=== PATIENT | male | born 1960 | race Caucasian/White ===

== ENCOUNTER 2017-12-12 23:23 | Inpatient (IN) | payer OTHER ==
[2017-12-13] MEDS ORDERED: Piperacillin/Tazobac ADVAN(*) 3.375 GM in NS 0.9% 100 ML* 100 ML IVPB ONE (00:13)
[2017-12-13] MEDS ORDERED: Vancomycin(*) 1,500 MG in NS 0.9% 250 ML* 250 ML IVPB ONE (00:13)
[2017-12-13 00:55] LABS: INR 1.05 (0.77-1.02)
[2017-12-13 00:58] LABS: ABS Basophils 0.1 10^3/ul (0-0.2); ABS Eosinophils 0.3 10^3/ul (0-0.6); ABS Lymphocytes 1.9 10^3/ul (1.0-4.8); ABS Monocytes 0.9 10^3/ul (0-0.8); ABS Neutrophils 10.9 10^3/ul (1.5-7.7); Hematocrit 35 % (42-52); Hemoglobin 11.7 g/dl (14.0-18.0); Mean Corpuscular HGB Conc 33 g/dl (31-36); Mean Corpuscular Hemoglobin 24 pg (27-31); Mean Corpuscular Volume 72 fL (80-94); Platelet Count 417 10^3/ul (150-450); Red Blood Count 4.91 10^6/ul (4.0-5.4); Red Cell Distribution Width 18 % (10.5-15)
[2017-12-13 01:01] LABS: EGFR Non-African American 68.8 (>60)
[2017-12-13] MEDS ORDERED: Insulin REGULAR(*) 1 UNITS UNIT IV PUSH ONE (01:06)
[2017-12-13] MEDS ORDERED: NS 0.9% 1000 ML* 1,000 ML IV ONE (01:06)
[2017-12-13 01:23] LABS: ABS Nucleated RBC 0 10^3/ul; Eosinophil % 2.1 % (0-6); Lymphocyte % 13.2 % (25-47); Nucleated Red Blood Cells % 0.1
[2017-12-13] MEDS ORDERED: Senna TAB PO PRN (02:06)
[2017-12-13] MEDS ORDERED: Ondansetron INJ* 2 MG/ML VIAL IV PRN (02:06)
[2017-12-13] MEDS ORDERED: Al Hydrox/Mg Hydrox/Simet LIQ* 30 ML UDC PO PRN (02:06)
[2017-12-13] MEDS ORDERED: Acetaminophen TAB* 325 MG PO PRN (02:06)
[2017-12-13] MEDS ORDERED: Docusate CAP* 100 MG PO PRN (02:06)
[2017-12-13] MEDS ORDERED: Insulin LISPRO* 1 UNITS UNIT SUBCUT ONE (02:09)
[2017-12-13] MEDS ORDERED: Dextrose 50% Syringe 50 ML* 25 GM/50 ML SYRINGE IV PUSH PRN ×3 (02:09→02:15)
--- NOTE | 2017-12-13 02:10 | ED ---
Ruth Guerin Nilda, scribed for Cami Barahona MD on 12/13/17 at 0015 . Lower Extremity - HPI Summary HPI Summary: This patient is a 57 year old M presenting to [facility] with a chief complaint of constant draining, black wound on left foot that began one week ago. He reports he otherwise feels fine. He notes recent HbA1C was found to be 9. Pt states he will be seeing PCP (Dr. Greene) on 12/17/17. The patient rates the pain 0/10 in severity. Symptoms aggravated and alleviated by nothing. PMHx includes DMII, diabetic neuropathy, and right foot amputation. - History of Current Complaint Chief Complaint: EDExtremityLower Stated Complaint: LEFT FOOT INFECTION Time Seen by Provider: 12/12/17 23:39 Hx Obtained From: Patient Mechanism Of Injury: Other - Hx DM and neuropathy. Onset/Duration: Still Present Pain Intensity: 0 Pain Scale Used: 0-10 Numeric Timing: Constant Location: Is Discrete @ - bottom of left foot Associated Signs And Symptoms: Positive: Other - black wound, draining Aggravating Factor(s): Nothing Alleviating Factor(s): Nothing - Allergies/Home Medications Allergies/Adverse Reactions: Allergies Allergy/AdvReac Type Severity Reaction Status Date / Time cefepime Allergy See Comment Verified 12/12/17 23:31 Home Medications: Home Medications Pravastatin (NF) [Pravachol (NF)] 20 mg PO DAILY 12/12/17 [History Confirmed 12/26] PMH/Surg Hx/FS Hx/Imm Hx Endocrine/Hematology History: Reports: Hx Diabetes - DM II Denies: Hx Anticoagulant Therapy, Hx Blood Disorders, Hx Blood Transfusions, Hx Bone Marrow Disease, Hx Systemic Lupus Erythematosus, Hx Sickle Cell Disease , Hx Thyroid Disease, Hx Anemia, Hx Unexplained Bleeding, Other Endocrine/ Hematological Disorders Cardiovascular History: Reports: Hx Hypertension, Hx Peripheral Vascular Disease Denies: Hx Congestive Heart Failure, Hx Pacemaker/ICD History: Reports: Hx Acute Renal Failure, Hx Chronic Renal Failure Denies: Hx Renal Disease Comment Only: Other Problems/Disorders - HAD 7 Tx [facility] Musculoskeletal History: Reports: Other Musculoskeletal History - osteomyelitis Denies: Hx Osteoporosis Sensory History: Reports: Hx Contacts or Glasses Denies: Hx Hearing Aid Opthamlomology History: Reports: Hx Contacts or Glasses Neurological History: Reports: Other Neuro Impairments/Disorders - PTSS, anxiety , aspergers Psychiatric History: Reports: Hx Anxiety, Hx Depression, Hx Post Traumatic Stress Disorder, Hx Community Mental Health Tx - Psychiatrist [place] on [address] , Other Psychiatric Issues/Disorders - donavon Denies: Hx Attention Deficit Hyperactivity Disorder, Hx Eating Disorder, Hx Panic Disorder, Hx Inpatient Treatment, Hx Schizophrenia, Hx Bipolar Disorder, Hx Suicide Attempt, Hx of Violent Episodes Against Others, Hx Substance Abuse - Surgical History Surgery Procedure, Year, and Place: 2014 FOOT AMPUTATION X2 ([facility]). CATHETER IN NECK FOR DIALYSIS Hx Anesthesia Reactions: No Infectious Disease History: Yes Infectious Disease History: Denies: Traveled Outside the [place] in Last 30 Days - Social History Alcohol Use: Rare Substance Use Type: Reports: None Smoking Status (MU): Light Every Day Tobacco Smoker Type: Cigarettes Amount Used/How Often: 1PPD OR LESS 20 YEARS Have You Smoked in the Last Year: Yes Review of Systems Negative: Shortness Of Breath Positive: Other - black wound with drainage on left foot All Other Systems Reviewed And Are Negative: Yes Physical Exam - Summary Physical Exam Summary: VITAL SIGNS: Reviewed. GENERAL: Patient is a morbidly obese male who is lying comfortable in the stretcher. Patient is not in any acute respiratory distress. HEAD AND FACE: No signs of trauma. No ecchymosis, hematomas or skull depressions. No sinus tenderness. EYES: PERRLA, EOMI x 2, No injected conjunctiva, no nystagmus. EARS: Hearing grossly intact. Ear canals and tympanic membranes are within normal limits. MOUTH: Oropharynx within normal limits. NECK: Supple, trachea is midline, no adenopathy, no JVD, no carotid bruit, no c- spine tenderness, neck with full ROM. CHEST: Symmetric, no tenderness at palpation LUNGS: Clear to auscultation bilaterally. No wheezing or crackles. CVS: Regular rate and rhythm, S1 and S2 present, no murmurs or gallops appreciated. ABDOMEN: Soft, non-tender. No signs of distention. No rebound no guarding, and no masses palpated. Bowel sounds are normal. EXTREMITIES: 1.5 in. x in. gangrenous ulcer over sole of medial aspect of the left foot with surrounding erythema. Sensory loss in left foot secondary to Hx of neuropathy. NEURO: Alert and oriented x 3. No acute neurological deficits. Speech is normal and follows commands. SKIN: Dry and warm Triage Information Reviewed: Yes Vital Signs On Initial Exam: Initial Vitals Temp Pulse Resp BP Pulse Ox 97.6 F 90 18 188/85 96 12/12/17 23:26 12/12/17 23:26 12/12/17 23:26 12/12/17 23:26 12/12/17 23:26 Vital Signs Reviewed: Yes Diagnostics - Vital Signs Vital Signs Temp Pulse Resp BP Pulse Ox 12/12/17 23:26 97.6 F 90 18 188/85 96 - Laboratory Result Diagrams: 12/13/17 00:20 12/13/17 00:20 Lab Statement: Any lab studies that have been ordered have been reviewed, and results considered in the medical decision making process. - Radiology Left Foot XR Radiology Interpretation Completed By: ED Physician - Left foot XR reveals bone irregularity over the radial aspect of the mid left foot/possible osteomyelitis. Lower Extremity Course/Dx - Course Assessment/Plan: Pt is a 57 y/o with Hx DM uncontrolled, and neuropathy. Pt came here with ulcer to left foot. Exam consistent with gangrenous ulcer over sole of left foot medially with surrounding erythema. Left foot XR reveals possible osteomyelitis. Pt will be admitted for IV abx. - Diagnoses Provider Diagnoses: Gangrene of left foot, Cellulitis of left foot - Physician Notifications Discussed Care Of Patient With: Cristina Kraft - hospitalist Time Discussed With Above Provider: 01:09 Instructed by Provider To: Admit As Inpatient Discharge - Sign-Out/Discharge Documenting (check all that apply): Discharge - admit - Discharge Plan Condition: Stable Disposition: ADMITTED TO [facility] Referrals: Daniel Greene MD [Primary Care Provider] - The documentation as recorded by the Ruth akhtar Nilda accurately reflects the service I personally performed and the decisions made by me, Cami Barahona MD.
[2017-12-13] MEDS ORDERED: Vancomycin(*) 0 MG in NS 0.9% 250 ML* 250 ML IVPB SCH (03:00)
[2017-12-13] MEDS ORDERED: metroNIDAZOLE IV 500 MG/100ML* 500 MG/100 ML BAG IVPB SCH (03:00)
[2017-12-13] MEDS ORDERED: Vancomycin per Pharmacy* NOTE FOLLOW UP PRN (04:42)
[2017-12-13] MEDS: metroNIDAZOLE IV 500 MG/100ML* 500 MG/100 ML BAG IVPB SCH ×2 (05:07→17:29)
[2017-12-13] MEDS: Heparin VIAL(*) 5000 UNITS/ML VIAL (FIVE THOUSAND) SUBCUT SCH ×3 (06:29→20:37)
--- NOTE | 2017-12-13 07:40 | RAD ---
HISTORY: Left foot infection COMPARISONS: None VIEWS: 3, Frontal, lateral, and oblique views of the left foot FINDINGS: BONE DENSITY: Normal. BONES: There is no displaced fracture. There is no appreciable erosion or periosteal reaction. JOINTS: There is advanced osteoarthritis of the midfoot suggestive of a neuropathic joint. ALIGNMENT: There is no dislocation. SOFT TISSUES: There is soft tissue defect along the medial plantar surface of the foot. There is peripheral arterial calcification. OTHER FINDINGS: None. IMPRESSION: 1. ADVANCED OSTEOARTHRITIS OF THE MIDFOOT SUGGESTIVE OF A NEUROPATHIC JOINT. 2. SOFT TISSUE DEFECT CONSISTENT ALONG THE MEDIAL PLANTAR SURFACE OF THE FOOT. THERE IS NO APPRECIABLE ASSOCIATED EROSION OR PERIOSTEAL REACTION. PLAIN FILM FINDINGS OF OSTEOMYELITIS ARE RELATIVELY LATE FINDINGS. IF THERE IS PERSISTENT CLINICAL CONCERN FOR OSTEOMYELITIS, RECOMMEND CORRELATION WITH FOLLOWUP IMAGING, THREE-PHASE BONE SCANNING, WHITE BLOOD CELL SCAN, AND/OR MRI OF THE AFFECTED REGION. 3. PERIPHERAL ARTERIAL DISEASE
--- NOTE | 2017-12-13 07:59 | HP ---
CC: Daniel Greene MD * HISTORY AND PHYSICAL: DATE OF ADMISSION: 12/13/17. TIME OF EVALUATION: 0200. PRIMARY CARE PHYSICIAN: Daniel Greene MD. CHIEF COMPLAINT: Left foot ulcer. HISTORY OF PRESENT ILLNESS: This is a 57-year-old male with a past medical history of poorly controlled diabetes on insulin and a history of right foot osteo, status post amputation, who presents to the emergency room with a week to 10 days of progressively worse left foot ulcer. He states he has neuropathy in his feet. His blood sugars are not well controlled. They range in the 200s. He did have his hemoglobin A1c checked last week and it was 9.5. He was going to follow up to discuss further insulin management. He was hoping this wound on the bottom of his left foot would resolve on its own. It got progressively worse and his friend who is his healthcare proxy forced him to come to the emergency room this morning. He states he has been feeling otherwise okay. No fevers. No chills. No night sweats. No nausea or vomiting. He has chronic diarrhea related to anxiety. No chest pain or shortness of breath. In the emergency room, the patient had labs and imaging. He was given vancomycin, Zosyn, a liter of fluid, and referred to the hospitalist service for further evaluation. PAST MEDICAL HISTORY: 1. History of right foot osteomyelitis, status post toe amputation, and progressed partial foot amputation back in 2013. 2. History of interstitial nephritis with endstage renal disease requiring dialysis secondary to cefepime. 3. History of Asperger disorder. 4. Diabetes, poorly controlled on insulin. 5. History of neuropathy. 6. Hyperlipidemia. MEDICATIONS: 1. Pravastatin 20 mg p.o. daily. 2. Lantus 30 units at bedtime. 3. Amlodipine 5 mg daily. 4. Lispro. 5. Humalog 10 units a.c. 6. Prozac 40 mg daily. ALLERGIES: CEFEPIME. FAMILY HISTORY: The patient was adopted. SOCIAL HISTORY: The patient lives alone. He says his best friend Millie is his healthcare proxy. He states he smokes on and off for the past 20 plus years about a half a pack per day. Rare alcohol use. No illicit drug use. He is on disability. CODE STATUS: Full code. REVIEW OF SYSTEMS: A 14-point review of systems as mentioned in the HPI, otherwise negative. PHYSICAL EXAMINATION GENERAL: No acute distress. Resting comfortably with his friend at the bedside. VITAL SIGNS: Temp 97.6, pulse rate 90, respiratory rate 18, oxygen saturation 96 % on room air, blood pressure 161/89. HEENT: Head normocephalic. Pupils equal and reactive, anicteric. Oropharynx: Mucous membranes moist. NECK: Supple. No lymphadenopathy. RESPIRATORY: Diminished breath sounds. No wheezes, rhonchi, or rales. CARDIAC: Regular rate and rhythm. Soft systolic murmur heard throughout. ABDOMEN: Morbidly obese, soft, nontender, nondistended. EXTREMITIES: The patient's right lower extremity with a partial foot amputation. His left lower extremity has a 3-cm gangrenous ulcer on the dorsum of his left foot with surrounding erythema. NEUROLOGIC: Alert and oriented x3. No gross focal neurologic deficits. LABORATORY DATA: White count 14.0, hemoglobin 11.7, hematocrit 35, platelets 417. INR is 1.05. Sodium 133, potassium 3.9, chloride 100, bicarbonate 27, BUN 16, creatinine 1.11, glucose 322. CRP is 55. ASSESSMENT: This is a 57-year-old male with a past medical history of poorly controlled diabetes and neuropathy, who presents to the emergency room with progressively worsening left foot ulcer. 1. Left foot ulcer. Assessment: This has been progressive over the past 7 to 10 days with significant necrotic, gangrenous appearance on the dorsum of his left foot, suspicious for osteomyelitis. Plan: We will obtain a wound culture. We will continue him on vanco. We will switch him to Cipro and Flagyl. We will consult ID and also the patient is requesting Dr. Walker who did his amputation in the past. We will consult him as well. 2. Diabetes. Assessment: Poorly controlled. We will give him 6 units of insulin now, continue on his Lantus at [address] him on a Lispro sliding scale. CHRONIC MEDICAL PROBLEMS: 1. Hypertension: Continue his amlodipine 5 mg daily. 2. Hyperlipidemia: We do not have pravastatin in our formulary, we will hold this. 3. Depression. We will continue his Prozac at 40. 4. FEN. We will place the patient on a diabetic diet. 5. DVT prophylaxis. The patient scores moderate risk, we will place him on heparin subcu t.i.d. 6. Code status: Full code. PATIENT TIME: Greater than 50 minutes spent doing the history and physical, more than half time spent in direct patient contact. [id number]/[facility] #: [id number] ED
[2017-12-13] MEDS: FLUoxetine CAP* 20 MG PO SCH (08:15)
[2017-12-13] MEDS: amLODIPine TAB* 5 MG PO SCH (08:16)
[2017-12-13] MEDS ORDERED: Cefepime 2 GM in Dextrose(*) 2 GM/50 ML BAG IV SCH (09:00)
[2017-12-13] MEDS ORDERED: Ciprofloxacin 400MG IVPREMIX(* 400 MG/200 ML BAG IVPB SCH (09:00)
[2017-12-13] MEDS: Insulin LISPRO* 1 UNITS UNIT SUBCUT SCH ×6 (09:46→18:33)
[2017-12-13] MEDS: Vancomycin(*) 1,250 MG in NS 0.9% 250 ML* 250 ML IVPB SCH ×2 (10:27→18:31)
--- NOTE | 2017-12-13 13:14 | RAD ---
INDICATION: Plantar mid foot ulcer evaluate for osteomyelitis. COMPARISON: Comparison is made with a prior x-ray study of the left foot from December 13, 2017. TECHNIQUE: Axial, sagittal and coronal T1 and T2-weighted images of the left foot were obtained. FINDINGS: There is focal soft tissue swelling and a soft tissue defect present along the plantar medial aspect of the foot at the level of the first tarsometatarsal joint. No bone marrow edema or adjacent erosive changes are noted. No focal fluid collections are seen. There is moderate diffuse osteoarthritic change in the blood foot throughout the intertarsal and tarsometatarsal joints suggesting the possibility of a Charcot joint. IMPRESSION: 1. SOFT TISSUE SWELLING AND SOFT TISSUE ULCER, NO EVIDENCE FOR OSTEOMYELITIS. 2. FINDINGS SUGGESTIVE OF A CHARCOT JOINT.
--- NOTE | 2017-12-13 13:56 | CONS ---
DATE OF CONSULTATION: 12/13/2017. REQUESTING PHYSICIAN: Dr. Kraft. CONSULTING SERVICE: Infectious Disease. REASON FOR CONSULTATION: Left foot infection. IMPRESSION: 1. Left plantar midfoot ulcer with large surrounding callous which he has noticed for a couple of weeks, I suspect it has been there for a few months and that there is underlying deeper infection, including a chronic osteomyelitis of the mid foot. This is in the setting of neuropathy and poorly controlled diabetes, probably polymicrobial. 2. Diabetes with neuropathy. 3. History of acute kidney injury requiring hemodialysis due to interstitial nephritis from Cefepime. 4. Morbid obesity. 5. Hyperlipidemia. RECOMMENDATIONS: Continue Vancomycin and Flagyl, stop the Cipro. I will order an MRI of the foot to look for deeper infection. Orthopedics is going to see him. I do suspect he will need significant surgery to heal this. He does have a good dorsalis pedis pulse on the left. HISTORY OF PRESENT ILLNESS: This is a 57-year-old diabetic with neuropathy, admitted with left foot infection. For about a aczq-kad-y-half he has noticed a sore on his left foot with some black material over the wound that eventually came off. He thought it might get better on its own, it did not. He came to the hospital yesterday and x-rays showed no bone changes. He is afebrile. He has not had chills, sweats, or anorexia at home. His last hemoglobin a1c was 9 a couple of weeks ago, his white count was 14. Yesterday his CRP was 55. A wound swab was taken. It showed gram positive cocci. The culture is pending. PAST MEDICAL HISTORY: 1. Right foot osteomyelitis, status post mid foot amputation. 2. Interstitial nephritis requiring temporary dialysis, secondary to Cefepime. 3. Asperger disorder. 4. Insulin dependent diabetes. 5. Peripheral neuropathy. 6. Hyperlipidemia. MEDICATIONS: Tylenol, Amlodipine, Fluoxetine, insulin Glargine, insulin Lispro , Flagyl 500 mg every 8 hour, Senna, Vancomycin 1250 mg every 8 hours. ALLERGIES: CEFEPIME. FAMILY HISTORY: No current infections SOCIAL HISTORY: He lives by himself in [place]. He has a pet dog. He has no travel. He is a nonsmoker. REVIEW OF SYSTEMS: A 14 point review of systems was negative except as noted above. PHYSICAL EXAM: General: He is awake and not in distress. Vital Signs: Temperature 36.4, heart rate 70, respiratory rate 16, blood pressure 140/60, oxygen saturation 95 percent on room air. Neurologic: He is oriented times three, follows all commands. HEENT: There is no conjunctival hemorrhage. Oropharynx without lesions. Neck: Supple without mass. Lymph Nodes: There is no inguinal, axillary, or epitrochlear lymphadenopathy. Heart: Regular rate and rhythm without murmurs, rubs, or gallops. Lungs: Clear to auscultation bilaterally. Abdomen: Soft, nontender, nondistended. There are bowel sounds present. Skin: There is no rash or splinter hemorrhoids. Musculoskeletal: There is no spine tenderness to palpation. Right foot is surgically absent. Left foot: There is a 2+ dorsalis pedis pulse. There is mild edema. There is a large plantar medial midfoot ulcer with underlying dry gangrene. Surrounding large callous with mild erythema. DIAGNOSTIC STUDIES/LAB DATA: Creatinine 1.1, CRP 55; white blood cell count 14 , hemoglobin 12, platelets 417. Please see impressions and recommendation as outlined above. Thank you for asking me to see Mr. Maldonado in consultation. [id number]/[facility] #: [id number] ED
--- NOTE | 2017-12-13 14:18 | PN ---
Subjective Date of Service: 12/13/17 Interval History: Patient seen and examined. No acute events noted. Patient states he is feeling well. Has limited sensation in left foot, but no pain. Denies fevers or chills, no n/v, no headache, no chest pain and no SOB. Objective Active Medications: Acetaminophen (Tylenol Tab*) 650 mg PO Q4H PRN PRN Reason: FEVER/PAIN Al Hydrox/Mg Hydrox/Simethicone (Maalox Plus*) 30 ml PO Q6H PRN PRN Reason: INDIGESTION Amlodipine Besylate (Norvasc Tab*) 5 mg PO DAILY [facility] Last Admin: 12/13/17 08:16 Dose: 5 mg Dextrose (D50w Syringe 50 Ml*) 12.5 gm IV PUSH .FOR FS < 60 - SS PRN PRN Reason: FS < 60 Docusate Sodium (Colace Cap*) 100 mg PO BID PRN PRN Reason: CONSTIPATION Fluoxetine HCl (Prozac Cap*) 40 mg PO DAILY [facility] Last Admin: 12/13/17 08:15 Dose: 40 mg Heparin Sodium (Porcine) (Heparin Vial(*)) 5,000 units SUBCUT Q8HR [facility] Last Admin: 12/13/17 13:47 Dose: 5,000 units Metronidazole/Sodium Chloride (Flagyl 500 Mg Ivpb*) 500 mg in 100 mls @ 100 mls /hr IVPB Q12HR@0500,1700 [facility] Last Admin: 12/13/17 05:07 Dose: 100 mls/hr Vancomycin HCl 1,250 mg/ (Sodium Chloride) 250 mls @ 166.667 mls/hr IVPB Q8H [facility] Last Admin: 12/13/17 10:27 Dose: 166.667 mls/hr Insulin Glargine (Lantus(*)) 30 units SUBCUT Q24H [facility] Insulin Human Lispro (Humalog*) 0 units SUBCUT AC [facility] PRN Reason: Protocol Last Admin: 12/13/17 13:48 Dose: 6 units Insulin Human Lispro (Humalog*) 0 units SUBCUT AC [facility] PRN Reason: Protocol Last Admin: 12/13/17 13:48 Dose: 9 units Ondansetron HCl (Zofran Inj*) 4 mg IV Q4H PRN PRN Reason: NAUSEA/VOMITING Pharmacy Consult (Vancomycin Per Pharmacy*) 1 note FOLLOW UP . PRN PRN Reason: PER PROTOCOL Pharmacy Profile Note (Vancomycin Trough Check) 1 note FOLLOW UP .ENTER TIME ONE Stop: 12/14/17 10:01 Senna (Senokot Tab*) 1 tab PO BID PRN PRN Reason: CONSTIPATION Vital Signs - 8 hr 12/13/17 12/13/17 12/13/17 07:19 08:00 11:15 Temperature 97.6 F 98.0 F Pulse Rate 69 72 Respiratory 16 16 16 Rate Blood Pressure 146/65 150/69 (mmHg) O2 Sat by Pulse 95 95 Oximetry Oxygen Devices in Use Now: None Appearance: Alert, NAD Eyes: No Scleral Icterus, PERRLA Ears/Nose/Mouth/Throat: Clear Oropharnyx Neck: Trachea Midline Respiratory: Symmetrical Chest Expansion and Respiratory Effort, Clear to Auscultation Cardiovascular: NL Sounds; No Murmurs; No JVD, RRR Abdominal: NL Sounds; No Tenderness; No Distention Extremities: No Clubbing, Cyanosis Skin: - - left midfoot wound, dressing CDI Neurological: Alert and Oriented x 3, - - peripheral neuropathy bilat LE Nutrition: Taking PO's Result Diagrams: 12/13/17 00:20 12/13/17 00:20 Microbiology and Other Data: Microbiology 12/13/17 04:05 Skin and Soft Tissue MRSA/MSSA (PCR - Final Foot Left Mrsa Negative S.aureus Negative Gram Stain - Final Diagnostic Imaging: Patient Name: BRIANNA GILLIS Medical Record#: [id number] Ordering Physician: Dave Hernandes MD Acct.#: [id number] : 1960 Age: 57 Sex: M Location: SURGICAL STAY UNIT Exam Date: 12/13/171041 ADM Status: ADM IN Order Information: MRI LOWER EXTREMITY LEFT W/O Accession Number: [id number] CPT: 85591 INDICATION: Plantar mid foot ulcer evaluate for osteomyelitis. COMPARISON: Comparison is made with a prior x-ray study of the left foot from December 13, 2017. TECHNIQUE: Axial, sagittal and coronal T1 and T2-weighted images of the left foot were obtained. FINDINGS: There is focal soft tissue swelling and a soft tissue defect present along the plantar medial aspect of the foot at the level of the first tarsometatarsal joint. No bone marrow edema or adjacent erosive changes are noted. No focal fluid collections are seen. There is moderate diffuse osteoarthritic change in the blood foot throughout the intertarsal and tarsometatarsal joints suggesting the possibility of a Charcot joint. IMPRESSION: 1. SOFT TISSUE SWELLING AND SOFT TISSUE ULCER, NO EVIDENCE FOR OSTEOMYELITIS. 2. FINDINGS SUGGESTIVE OF A CHARCOT JOINT. <Electronically signed by Syed Alfaro MD in [place]> 12/13/17 1311 Dictated By: Syed Alfaro MD Dictated Date/Time: 12/13/17 1311 Transcribed Date/Time: 12/13/17 1304 Copy to: Assess/Plan/Problems-Billing Assessment: This is a 57 year old male with history of uncontrolled DM, neuropathy and previous osteomyelitis that presents with non-healing Left foot wound. - Patient Problems (1) Non-healing ulcer of left foot Code(s): L97.529 - NON-PRESSURE CHRONIC ULCER OTH PRT LEFT FOOT W UNSP SEVERITY SNOMED Code(s): 455071555 Comment: - MRI as above, no osteomyelitis - Gram pos cocci in culture - ID and ortho following - Continue atbx as per Dr. Hernandes - Pending surgical input, likely debridement (2) Uncontrolled diabetes mellitus Code(s): E11.65 - TYPE 2 DIABETES MELLITUS WITH HYPERGLYCEMIA SNOMED Code(s): 002738437 Comment: - Per patient, A1C was 9.5 last week - contiue lantus and lispro SS - Increase lantus to 40units daily, sugars running high likely in the setting of acute infection (3) Chronic renal failure Comment: - Stable creat at 1.11 today (4) HTN (hypertension) Code(s): I10 - ESSENTIAL (PRIMARY) HYPERTENSION SNOMED Code(s): 80591593 Comment: - BP stable on amlodipine (5) PTSD (post-traumatic stress disorder) Code(s): F43.10 - POST-TRAUMATIC STRESS DISORDER, UNSPECIFIED SNOMED Code(s): 83142844 Comment: - Continue fluoxetine (6) PVD (peripheral vascular disease) Code(s): I73.9 - PERIPHERAL VASCULAR DISEASE, UNSPECIFIED SNOMED Code(s): 212268189 Comment: - With associated neuropathy - Needs improved glucose control (7) DVT prophylaxis Code(s): THZ5662 - SNOMED Code(s): 532102545 Comment: - HSQ (8) Full code status Code(s): Z78.9 - OTHER SPECIFIED HEALTH STATUS SNOMED Code(s): 244507496 Status and Disposition: Remain inpatient for continued atbx tx and possible surgical debridement.
--- NOTE | 2017-12-13 15:06 | CONSULT ---
<Teddy Canales - Last Filed: 12/14/17 17:00> Consult Consult: attending addendum I saw and examined the patient with MIKY Garcia on 12/13/17. I agree with the above note and findings and performed the History and physical exam myself. He reports that this ulcer has been developing over the last couple of weeks. The ulcer is malodorous and over a bony prominence of the plantar medial midfoot. He has underlying Charcot neuroarthropathy as seen on the x- ray and MRI. While the MRI does not clearly show osteomyelitis, there is some abnormality of the bone underlying the ulcer and quite a bit of motion artifact. I agree with antibiotics as directed by infectious diseases service. I recommend nonweightbearing on the left lower extremity to offload the ulcer. This will likely benefit from an ulcer debridement and ostectomy of the underlying prominent bone, which very well may be infected. I will discuss with Dr. Walker on timing. Teddy Canales MD <Patsy Pacheco - Last Filed: 12/17/17 07:40> Consult Consult: Date of admission: 12/13/17 Date of Consult: 12/13/17 Orthopedic consultation PCP: Daniel Greene MD Attending Provider: Teddy Canales MD CC: left foot ulcer HPI: Patient is a 57 year old poorly controlled diabetic on insulin therapy with history of right foot amputation [address] Walker. He present to [facility] emergency room after 10 days of left foot ulcer that started as a dry cracking region, later becoming red with ulcer formation. Left foot is not painful and drains bloody discharge. Sensation is limited in the left foot. Blood sugars are poorly controlled at home, running in the 200's. Patient denies any fever, chills, sweats, chest pain, shortness of breath, dizziness, diarrhea. No history of heart attack, stroke or blood clot. 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 Rarely consumes alcohol. Does not use elicit drugs. Lives alone. Heathcare proxy is best friend Millie Family history: Adopted Medications: As in Chart ROS: General: Denies fever or chills. HEENT: Denies headache, changes in vision or hearing Cardiac: Denies chest pain, history of AR Respiratory: Denies shortness of breath or cough GI: Denies nausea, vomiting, diarrhea or constipation : No dysuria Skin: Left foot ulceration/redness. Heme: No history of blood clot Neuro: Poor sensation of feet b/l Endo: + DM Physical Exam General: Well appearing, NAD. Sitting in chair. HEENT: NCAT, EOMi. Hearing and vision grossly normal Cardiac: S1, S2, RRR Pulm: CTA BL without wheezes, rales or rhonchi Abd: BS normoactive, nontender, no obvious masses. Skin LLE: Left foot with roughly 4x4 cm ulceration of plantar aspect of midfoot with erythema extending to medial foot and dorsum of foot. No streaking of erythema. Area is hot to touch. MSK: Left foot no tenderness to palpation, DF/PF intact, able to wiggle toes. Right foot surgically absent. Vasc: LLE DP pulse 2+ and capillary refill less than two seconds distally. Neuro: Lacks sensation of distal BL LE. Vital Signs Temp Pulse Resp BP Pulse Ox 98.0 F 72 16 150/69 95 12/13/17 11:15 12/13/17 11:15 12/13/17 11:15 12/13/17 11:15 12/13/17 11:15 Laboratory Last Values WBC 14.0 10^3/ul (3.5-10.8) H 12/13/17 00:20 RBC 4.91 10^6/ul (4.0-5.4) 12/13/17 00:20 Hgb 11.7 g/dl (14.0-18.0) L 12/13/17 00:20 Hct 35 % (42-52) L 12/13/17 00:20 MCV 72 fL (80-94) L 12/13/17 00:20 MCH 24 pg (27-31) L 12/13/17 00:20 MCHC 33 g/dl (31-36) 12/13/17 00:20 RDW 18 % (10.5-15) H 12/13/17 00:20 Plt Count 417 10^3/ul (150-450) 12/13/17 00:20 MPV 7.0 um3 (7.4-10.4) L 12/13/17 00:20 Neut % (Auto) 77.6 % (38-83) 12/13/17 00:20 Lymph % (Auto) 13.2 % (25-47) L 12/13/17 00:20 O'Brien % (Auto) 6.6 % (0-7) 12/13/17 00:20 Eos % (Auto) 2.1 % (0-6) 12/13/17 00:20 Baso % (Auto) 0.5 % (0-2) 12/13/17 00:20 Absolute Neuts (auto) 10.9 10^3/ul (1.5-7.7) H 12/13/17 00:20 Absolute Lymphs (auto) 1.9 10^3/ul (1.0-4.8) 12/13/17 00:20 Absolute Monos (auto) 0.9 10^3/ul (0-0.8) H 12/13/17 00:20 Absolute Eos (auto) 0.3 10^3/ul (0-0.6) 12/13/17 00:20 Absolute Basos (auto) 0.1 10^3/ul (0-0.2) 12/13/17 00:20 Absolute Nucleated RBC 0 10^3/ul 12/13/17 00:20 Nucleated RBC % 0.1 12/13/17 00:20 INR (Anticoag Therapy) 1.05 (0.77-1.02) H 12/13/17 00:20 APTT 33.6 seconds (26.0-36.3) 12/13/17 00:20 Sodium 133 mmol/L (139-145) L 12/13/17 00:20 Potassium 3.9 mmol/L (3.5-5.0) 12/13/17 00:20 Chloride 100 mmol/L (101-111) L 12/13/17 00:20 Carbon Dioxide 27 mmol/L (22-32) 12/13/17 00:20 Anion Gap 6 mmol/L (2-11) 12/13/17 00:20 BUN 16 mg/dL (6-24) 12/13/17 00:20 Creatinine 1.11 mg/dL (0.67-1.17) 12/13/17 00:20 Est GFR ( Amer) 88.5 (>60) 12/13/17 00:20 Est GFR (Non-Af Amer) 68.8 (>60) 12/13/17 00:20 BUN/Creatinine Ratio 14.4 (8-20) 12/13/17 00:20 Glucose 322 mg/dL (70-100) H 12/13/17 00:20 POC Glucose (mg/dL) 292 mg/dL (70-100) H 12/13/17 11:38 Lactic Acid 1.8 mmol/L (0.5-2.0) 12/13/17 00:20 Calcium 9.1 mg/dL (8.6-10.3) 12/13/17 00:20 Total Bilirubin 0.30 mg/dL (0.2-1.0) 12/13/17 00:20 AST 8 U/L (13-39) L 12/13/17 00:20 ALT 9 U/L (7-52) 12/13/17 00:20 Alkaline Phosphatase 130 U/L (34-104) H 12/13/17 00:20 C-Reactive Protein 55.44 mg/L (< 5.00) H 12/13/17 00:20 Total Protein 8.0 g/dL (6.4-8.9) 12/13/17 00:20 Albumin 3.5 g/dL (3.2-5.2) 12/13/17 00:20 Globulin 4.5 g/dL (2-4) H 12/13/17 00:20 Albumin/Globulin Ratio 0.8 (1-3) L 12/13/17 00:20 Diagnostic studies: MRI left foot: Soft tissue swelling and soft tissue ulcer , no evidence of osteomyelitis. Findings suggestive of charcot joint Assessment: Left foot ulceration Plan: Antibiotics per Infectious disease: Vancomycin and Flagyl To OR this weekend or early next week for debridement, vac placement
[2017-12-13] MEDS ORDERED: Insulin GLARGINE(*) 1 UNITS UNIT SUBCUT SCH ×2 (21:00)
[2017-12-14] MEDS: Vancomycin(*) 1,250 MG in NS 0.9% 250 ML* 250 ML IVPB SCH ×2 (02:28→10:53)
[2017-12-14] MEDS: metroNIDAZOLE IV 500 MG/100ML* 500 MG/100 ML BAG IVPB SCH ×3 (04:59→23:20)
[2017-12-14] MEDS: Heparin VIAL(*) 5000 UNITS/ML VIAL (FIVE THOUSAND) SUBCUT SCH ×3 (06:15→21:59)
[2017-12-14] MEDS: FLUoxetine CAP* 20 MG PO SCH (09:05)
[2017-12-14] MEDS: amLODIPine TAB* 5 MG PO SCH (09:05)
[2017-12-14] MEDS: Insulin LISPRO* 1 UNITS UNIT SUBCUT SCH ×6 (09:14→18:20)
[2017-12-14] MEDS ORDERED: Vancomycin Trough Check NOTE FOLLOW UP ONE (10:00)
--- NOTE | 2017-12-14 13:55 | PN ---
ADDENDUM: PROGRESS NOTE: DATE OF CONSULT: 12/14/17 I have further reviewed the MRI after having seen his ulcer and he does have a loss of the plantar medial cortex integrity of his medial cuneiform. The MRI is not of great quality. There is a lot of motion artifact. There is not appearing to be significant amount of edema in that part of his cuneiform, but he definitely has lost the cortical continuity. So, my impression is he has early erosive changes adjacent to the ulcer there. [id number]/[facility] #: [id number] [facility]
[2017-12-14] MEDS ORDERED: Piperacillin/Tazobactam 13.5 GM IV 24 hour continuous infusion IVPB SCH ×2 (14:00)
--- NOTE | 2017-12-14 14:04 | CONS ---
CONSULTATION REPORT: DATE OF CONSULT: 12/14/17. HISTORY OF PRESENT ILLNESS: Main is a 57-year-old diabetic, neuropathic patient who I performed a previous hind foot amputation couple of years ago and now he has had a left medial plantar foot ulcer for at least couple of weeks if not longer. He has had poor glucose control and really should have come in a little bit earlier to have this foot looked at, but he is not having significant systemic symptoms. Main was examined in the bed and he has his left foot unwrapped. Incidentally, he is having no issues with the right foot and ambulates with and without a brace there. The left foot has a strong dorsal pulse, but it is neuropathic in terms of decreased sensation. He has almost a silver dollar sized ulcer on the medial arch where he has some prominence from his planovalgus deformity. There are necrotic edges and necrotic base, mildly foul smelling, pink creamy purulence dripping from the wound. He evidently has an MRI, which did not show osteomyelitis. Patient at this point is a candidate for extensive debridement of this ulcer, possibly scraping or partial ostectomy of the wound bed and most likely a VAC placement. This will be discussed with my colleagues. [id number]/[facility] #: [id number] ED
--- NOTE | 2017-12-14 14:48 | PN ---
Progress Note - Progress Note Date of Service: 12/14/17 SOAP: Subjective: CC: left foot infection HPI: 57 year old man with left foot ulcer which he noticed aabout 10 days ago, with some swelling and drainage. MRI reported as no osteomyelitis, Dr Walker felt there was cortical destruction adjacent to bone. No fever, rash, or diarrhea. Objective: Vital Signs Temp 36.0 C 12/14/17 11:48 Pulse 65 12/14/17 11:48 Resp 22 12/14/17 11:48 BP 182/71 12/14/17 11:48 Pulse Ox 98 12/14/17 11:48 Intake & Output 12/13/17 12/14/17 12/14/17 18:59 06:59 18:59 Intake Total 545 1327 850 Output Total 1280 1575 1325 Balance -129 -093 -623 Weight 320 lb Intake: IVPB 347 250 ABX - FLAGYL 100 ABX - VANCOMYCIN 247 250 Oral 545 980 600 Output: Urine 1280 1575 1325 Other: Estimated Void Large # Bowel Movements 0 # Voids 2 Gen:awake, no distress HEENT:PERRL, MMM Heart:RRR no murmur Lungs:CTA BL Abd:+BS NTND soft Skin: no rash MSK: Left midfoot plantar option Laboratory Results - last 24 hr 12/13/17 12/13/17 12/14/17 14:26 17:16 07:47 POC Glucose (mg/dL) 233 H 281 H Hemoglobin A1c 9.9 H Vancomycin Trough 12/14/17 12/14/17 09:41 12:06 POC Glucose (mg/dL) 219 H Hemoglobin A1c Vancomycin Trough 18.4 Assessment: 1. left foot chronic osteomyelitis 2. diabetes with neuropathy 3. morbid obesity 4. chronic kidney disease Plan: 1. levaquin 500 mg IV daily, flagyl 500 mg IV Q8hrs, eventual outpatient long course antibiotics. 2. surgery planned for next week Vital Signs Temp 36.0 C 12/14/17 11:48 Pulse 65 12/14/17 11:48 Resp 22 12/14/17 11:48 BP 182/71 12/14/17 11:48 Pulse Ox 98 12/14/17 11:48 Intake & Output 12/13/17 12/14/17 12/14/17 18:59 06:59 18:59 Intake Total 545 1327 850 Output Total 1280 1575 1325 Balance -735 -248 -475 Weight 320 lb Intake: IVPB 347 250 ABX - FLAGYL 100 ABX - VANCOMYCIN 247 250 Oral 545 980 600 Output: Urine 1280 1575 1325 Other: Estimated Void Large # Bowel Movements 0 # Voids 2
--- NOTE | 2017-12-14 14:57 | PN ---
Subjective Date of Service: 12/14/17 Interval History: Pt is feeling well. He has no pain in his L foot. No SOB or CP. No abdominal pain, N/V/D. He is worried about how he is going to walk after surgery next week. Objective Active Medications: Acetaminophen (Tylenol Tab*) 650 mg PO Q4H PRN PRN Reason: FEVER/PAIN Al Hydrox/Mg Hydrox/Simethicone (Maalox Plus*) 30 ml PO Q6H PRN PRN Reason: INDIGESTION Amlodipine Besylate (Norvasc Tab*) 5 mg PO DAILY [facility] Last Admin: 12/14/17 09:05 Dose: 5 mg Dextrose (D50w Syringe 50 Ml*) 12.5 gm IV PUSH .FOR FS < 60 - SS PRN PRN Reason: FS < 60 Docusate Sodium (Colace Cap*) 100 mg PO BID PRN PRN Reason: CONSTIPATION Fluoxetine HCl (Prozac Cap*) 40 mg PO DAILY [facility] Last Admin: 12/14/17 09:05 Dose: 40 mg Heparin Sodium (Porcine) (Heparin Vial(*)) 5,000 units SUBCUT Q8HR [facility] Last Admin: 12/14/17 13:50 Dose: 5,000 units Levofloxacin/Dextrose (Levaquin 500 Mg Ivpremix(*)) 500 mg in 100 mls @ 100 mls /hr IVPB Q24H [facility] Metronidazole/Sodium Chloride (Flagyl 500 Mg Ivpb*) 500 mg in 100 mls @ 100 mls /hr IVPB Q8H [facility] Insulin Glargine (Lantus(*)) 47 units SUBCUT Q24H [facility] Insulin Human Lispro (Humalog*) 0 units SUBCUT AC [facility] PRN Reason: Protocol Last Admin: 12/14/17 13:48 Dose: 7 units Insulin Human Lispro (Humalog*) 0 units SUBCUT AC [facility] PRN Reason: Protocol Last Admin: 12/14/17 13:50 Dose: 6 units Ondansetron HCl (Zofran Inj*) 4 mg IV Q4H PRN PRN Reason: NAUSEA/VOMITING Senna (Senokot Tab*) 1 tab PO BID PRN PRN Reason: CONSTIPATION Vital Signs - 8 hr 12/14/17 12/14/17 12/14/17 08:06 09:00 11:48 Temperature 96.8 F 96.8 F Pulse Rate 68 65 Respiratory 18 18 22 Rate Blood Pressure 177/88 182/71 (mmHg) O2 Sat by Pulse 95 95 98 Oximetry Oxygen Devices in Use Now: None Appearance: Morbidly obese middle aged male sitting in a recliner chair, NAD Eyes: No Scleral Icterus Ears/Nose/Mouth/Throat: Mucous Membranes Moist Respiratory: Symmetrical Chest Expansion and Respiratory Effort, Clear to Auscultation Cardiovascular: NL Sounds; No Murmurs; No JVD, RRR, No Edema Abdominal: NL Sounds; No Tenderness; No Distention - obese Extremities: No Clubbing, Cyanosis Skin: - - large thick callus to plantar surface of the L mid foot with silver dollar sized ulcer and mild surrounding erythema Neurological: Alert and Oriented x 3 Result Diagrams: 12/13/17 00:20 12/13/17 00:20 Microbiology and Other Data: Microbiology 12/13/17 04:05 Skin and Soft Tissue MRSA/MSSA (PCR - Final Foot Left Mrsa Negative S.aureus Negative Gram Stain - Final Diagnostic Imaging: Patient Name: BRIANNA GILLIS Medical Record#: [id number] Ordering Physician: Dave Hernandes MD Acct.#: [id number] : 1960 Age: 57 Sex: M Location: SURGICAL STAY UNIT Exam Date: 12/13/171041 ADM Status: ADM IN Order Information: MRI LOWER EXTREMITY LEFT W/O Accession Number: [id number] CPT: 21950 INDICATION: Plantar mid foot ulcer evaluate for osteomyelitis. COMPARISON: Comparison is made with a prior x-ray study of the left foot from December 13, 2017. TECHNIQUE: Axial, sagittal and coronal T1 and T2-weighted images of the left foot were obtained. FINDINGS: There is focal soft tissue swelling and a soft tissue defect present along the plantar medial aspect of the foot at the level of the first tarsometatarsal joint. No bone marrow edema or adjacent erosive changes are noted. No focal fluid collections are seen. There is moderate diffuse osteoarthritic change in the blood foot throughout the intertarsal and tarsometatarsal joints suggesting the possibility of a Charcot joint. IMPRESSION: 1. SOFT TISSUE SWELLING AND SOFT TISSUE ULCER, NO EVIDENCE FOR OSTEOMYELITIS. 2. FINDINGS SUGGESTIVE OF A CHARCOT JOINT. <Electronically signed by Syed Alfaro MD in OV> 12/13/17 1311 Dictated By: Syed Alfaro MD Dictated Date/Time: 12/13/17 1311 Transcribed Date/Time: 12/13/17 1304 Copy to: Assess/Plan/Problems-Billing Mr Gillis is a 57 year old male with history of uncontrolled DM, neuropathy and previous osteomyelitis of the R foot who presents with non-healing Left foot wound. - Patient Problems (1) Non-healing ulcer of left foot Current Visit: Yes Status: Acute Code(s): L97.529 - NON-PRESSURE CHRONIC ULCER OTH PRT LEFT FOOT W UNSP SEVERITY SNOMED Code(s): 598331563 Comment: No clear evidence of osteo but Dr. Walker thinks there may be cortical erosions of the cunieform. Likely surgery early next week. For now continue levaquin and flagyl per Dr. Hernandes. (2) Uncontrolled diabetes mellitus Current Visit: Yes Status: Acute Code(s): E11.65 - TYPE 2 DIABETES MELLITUS WITH HYPERGLYCEMIA SNOMED Code(s): 540914158 Comment: Sugars are still elevated despite increasing the lantus dose. Increase lantus to 47 units SQ qHS and continue lispro. Will continue to make adjustments as needed. (3) DVT prophylaxis Current Visit: Yes Status: Acute Code(s): CQZ0101 - SNOMED Code(s): 249851443 Comment: SQ heparin (4) Full code status Current Visit: Yes Status: Acute Code(s): Z78.9 - OTHER SPECIFIED HEALTH STATUS SNOMED Code(s): 431588749 Status and Disposition: Remain inpatient for continued atbx tx and possible surgical debridement.
[2017-12-14] MEDS: Levofloxacin 500 MG IVPREMIX(* 500 MG/100 ML BAG IVPB SCH (15:29)
[2017-12-14] MEDS ORDERED: Insulin GLARGINE(*) 1 UNITS UNIT SUBCUT SCH (21:00)
[2017-12-15] MEDS: Heparin VIAL(*) 5000 UNITS/ML VIAL (FIVE THOUSAND) SUBCUT SCH ×3 (05:43→21:33)
[2017-12-15] MEDS: amLODIPine TAB* 5 MG PO SCH (08:07)
[2017-12-15] MEDS: FLUoxetine CAP* 20 MG PO SCH (08:07)
[2017-12-15] MEDS: metroNIDAZOLE IV 500 MG/100ML* 500 MG/100 ML BAG IVPB SCH ×2 (08:08→16:08)
--- NOTE | 2017-12-15 08:46 | PN ---
Subjective Date of Service: 12/15/17 Interval History: Pt is feeling well. He has no pain. No SOB. No diarrhea. He is most worried about how he is going to get around at home once he is discharged. Objective Active Medications: Acetaminophen (Tylenol Tab*) 650 mg PO Q4H PRN PRN Reason: FEVER/PAIN Al Hydrox/Mg Hydrox/Simethicone (Maalox Plus*) 30 ml PO Q6H PRN PRN Reason: INDIGESTION Amlodipine Besylate (Norvasc Tab*) 5 mg PO DAILY [facility] Last Admin: 12/15/17 08:07 Dose: 5 mg Dextrose (D50w Syringe 50 Ml*) 12.5 gm IV PUSH .FOR FS < 60 - SS PRN PRN Reason: FS < 60 Docusate Sodium (Colace Cap*) 100 mg PO BID PRN PRN Reason: CONSTIPATION Fluoxetine HCl (Prozac Cap*) 40 mg PO DAILY [facility] Last Admin: 12/15/17 08:07 Dose: 40 mg Heparin Sodium (Porcine) (Heparin Vial(*)) 5,000 units SUBCUT Q8HR [facility] Last Admin: 12/15/17 05:43 Dose: 5,000 units Levofloxacin/Dextrose (Levaquin 500 Mg Ivpremix(*)) 500 mg in 100 mls @ 100 mls /hr IVPB Q24H [facility] Last Admin: 12/14/17 15:29 Dose: 100 mls/hr Metronidazole/Sodium Chloride (Flagyl 500 Mg Ivpb*) 500 mg in 100 mls @ 100 mls /hr IVPB Q8H [facility] Last Admin: 12/15/17 08:08 Dose: 100 mls/hr Insulin Glargine (Lantus(*)) 50 units SUBCUT Q24H [facility] Insulin Human Lispro (Humalog*) 0 units SUBCUT AC [facility] PRN Reason: Protocol Last Admin: 12/14/17 18:20 Dose: 5 units Insulin Human Lispro (Humalog*) 0 units SUBCUT AC [facility] PRN Reason: Protocol Last Admin: 12/14/17 18:20 Dose: 3 units Ondansetron HCl (Zofran Inj*) 4 mg IV Q4H PRN PRN Reason: NAUSEA/VOMITING Senna (Senokot Tab*) 1 tab PO BID PRN PRN Reason: CONSTIPATION Vital Signs - 8 hr 12/15/17 12/15/17 03:28 07:44 Temperature 98.2 F 97.4 F Pulse Rate 67 77 Respiratory 18 18 Rate Blood Pressure 154/75 187/87 (mmHg) O2 Sat by Pulse 98 97 Oximetry Oxygen Devices in Use Now: None Appearance: Middle aged obese male sitting up in bed, NAD Eyes: No Scleral Icterus Ears/Nose/Mouth/Throat: Mucous Membranes Moist Respiratory: Symmetrical Chest Expansion and Respiratory Effort, Clear to Auscultation Cardiovascular: NL Sounds; No Murmurs; No JVD, RRR Abdominal: NL Sounds; No Tenderness; No Distention Extremities: No Clubbing, Cyanosis Skin: No Nodules or Sclerosis, - - ulceration not inspected today Neurological: Alert and Oriented x 3 Result Diagrams: 12/13/17 00:20 12/15/17 05:28 Microbiology and Other Data: Microbiology 12/13/17 04:05 Skin and Soft Tissue MRSA/MSSA (PCR - Final Foot Left Mrsa Negative S.aureus Negative Gram Stain - Final Diagnostic Imaging: Patient Name: BRIANNA GILLIS Medical Record#: [id number] Ordering Physician: Dave Hernandes MD Acct.#: [id number] : 1960 Age: 57 Sex: M Location: SURGICAL STAY UNIT Exam Date: 12/13/171041 ADM Status: ADM IN Order Information: MRI LOWER EXTREMITY LEFT W/O Accession Number: [id number] CPT: 87771 INDICATION: Plantar mid foot ulcer evaluate for osteomyelitis. COMPARISON: Comparison is made with a prior x-ray study of the left foot from December 13, 2017. TECHNIQUE: Axial, sagittal and coronal T1 and T2-weighted images of the left foot were obtained. FINDINGS: There is focal soft tissue swelling and a soft tissue defect present along the plantar medial aspect of the foot at the level of the first tarsometatarsal joint. No bone marrow edema or adjacent erosive changes are noted. No focal fluid collections are seen. There is moderate diffuse osteoarthritic change in the blood foot throughout the intertarsal and tarsometatarsal joints suggesting the possibility of a Charcot joint. IMPRESSION: 1. SOFT TISSUE SWELLING AND SOFT TISSUE ULCER, NO EVIDENCE FOR OSTEOMYELITIS. 2. FINDINGS SUGGESTIVE OF A CHARCOT JOINT. <Electronically signed by Syed Alfaro MD in [place]> 12/13/17 1311 Dictated By: Syed Alfaro MD Dictated Date/Time: 12/13/17 1311 Transcribed Date/Time: 12/13/17 1304 Copy to: Assess/Plan/Problems-Billing Mr Gillis is a 57 year old male with history of uncontrolled DM, neuropathy and previous osteomyelitis of the R foot who presents with non-healing Left foot wound. - Patient Problems (1) Non-healing ulcer of left foot Current Visit: Yes Status: Acute Code(s): L97.529 - NON-PRESSURE CHRONIC ULCER OTH PRT LEFT FOOT W UNSP SEVERITY SNOMED Code(s): 978997283 Comment: No clear evidence of osteo but Dr. Walker thinks there may be cortical erosions of the cunieform. Likely surgery early next week. For now continue levaquin and flagyl per Dr. Hernandes. Continue local wound care/ dressing changes. Await any new recommendations. Recheck CBC and CRP tomorrow. (2) Uncontrolled diabetes mellitus Current Visit: Yes Status: Acute Code(s): E11.65 - TYPE 2 DIABETES MELLITUS WITH HYPERGLYCEMIA SNOMED Code(s): 614781209 Comment: Sugars are better this AM but still not at goal. Will increase lantus to 50 units SQ qHS and monitor. Will continue to make adjustments as needed-likely next will add standing lispro with meals. (3) DVT prophylaxis Current Visit: Yes Status: Acute Code(s): NKJ0394 - SNOMED Code(s): 947559110 Comment: SQ heparin (4) Full code status Current Visit: Yes Status: Acute Code(s): Z78.9 - OTHER SPECIFIED HEALTH STATUS SNOMED Code(s): 389623295 Status and Disposition: Remain inpatient for continued atbx tx and possible surgical debridement.
[2017-12-15] MEDS: Insulin LISPRO* 1 UNITS UNIT SUBCUT SCH ×6 (09:09→18:40)
--- NOTE | 2017-12-15 09:19 | PN ---
Progress Note - Progress Note Date of Service: 12/15/17 SOAP: Subjective: Left foot wound, doing ok. Pt with peripheral neuropathy, no c/o pain. Denies f/ c, CP/SOB Objective: Vital Signs: Temp Pulse Resp BP Pulse Ox 97.4 F 77 18 187/87 97 12/15/17 07:44 12/15/17 07:44 12/15/17 07:44 12/15/17 07:44 12/15/17 07:44 Gen: A&Ox3, NAD at rest LLE: Pt with ulceration to plantar medial foot, ~2 cm wide. No erythema or d/c from wound, non-tender to palpation Labs: Laboratory Results - last 24 hr 12/14/17 12/14/17 12/14/17 09:41 12:06 17:23 Sodium Potassium Chloride Carbon Dioxide Anion Gap BUN Creatinine Est GFR ( Amer) Est GFR (Non-Af Amer) BUN/Creatinine Ratio Glucose POC Glucose (mg/dL) 219 H 193 H Calcium Vancomycin Trough 18.4 12/15/17 12/15/17 05:28 07:59 Sodium 133 L Potassium 3.9 Chloride 100 L Carbon Dioxide 28 Anion Gap 5 BUN 15 Creatinine 1.03 Est GFR ( Amer) 96.4 Est GFR (Non-Af Amer) 75.0 BUN/Creatinine Ratio 14.6 Glucose 164 H POC Glucose (mg/dL) 186 H Calcium 9.0 Vancomycin Trough Assessment: Left foot ulcer, stable, no surrounding cellulitis Plan: IV abx per ID Betadine wet to dry applied today Plan for OR 12/17/17 for wound debridement and VAC placement
[2017-12-15] MEDS: Levofloxacin 500 MG IVPREMIX(* 500 MG/100 ML BAG IVPB SCH (15:11)
[2017-12-15] MEDS: Insulin GLARGINE(*) 1 UNITS UNIT SUBCUT SCH (21:33)
[2017-12-16] MEDS: metroNIDAZOLE IV 500 MG/100ML* 500 MG/100 ML BAG IVPB SCH ×4 (00:11→23:40)
[2017-12-16 05:31] LABS: Hematocrit 34 % (42-52); Mean Corpuscular HGB Conc 32 g/dl (31-36); Mean Corpuscular Hemoglobin 23 pg (27-31); Mean Corpuscular Volume 73 fL (80-94); Mean Platelet Volume 6.6 um3 (7.4-10.4); Platelet Count 358 10^3/ul (150-450); Red Blood Count 4.68 10^6/ul (4.0-5.4); Red Cell Distribution Width 19 % (10.5-15); White Blood Count 12.2 10^3/ul (3.5-10.8)
[2017-12-16 05:50] LABS: EGFR Non-African American 75.8 (>60)
[2017-12-16] MEDS: Heparin VIAL(*) 5000 UNITS/ML VIAL (FIVE THOUSAND) SUBCUT SCH ×3 (06:15→21:59)
[2017-12-16] MEDS: FLUoxetine CAP* 20 MG PO SCH (07:56)
[2017-12-16] MEDS: amLODIPine TAB* 5 MG PO SCH (07:56)
--- NOTE | 2017-12-16 08:30 | PN ---
Progress Note - Progress Note Date of Service: 12/16/17 SOAP: Subjective: Left foot ulcer. No changes at this time. Anxious to have surgery to clear up ulcer. Denies CP/SOB Objective: Vitals: Temp Pulse Resp BP Pulse Ox 97.3 F 67 20 158/77 96 12/16/17 07:26 12/16/17 07:26 12/16/17 07:26 12/16/17 07:26 12/16/17 07:26 Gen: A&Ox3, NAD at rest sitting in chair LLE: Dressing C/D/I. +f/e at MTPs, sensation decreased due to neuropathy. Cap refill <2 sec Assessment: Left foot ulcer Plan: To OR 12/17/17, NPO after MN tonight Cont IV abx
[2017-12-16] MEDS: Insulin LISPRO* 1 UNITS UNIT SUBCUT SCH ×7 (09:03→21:59)
--- NOTE | 2017-12-16 15:08 | PN ---
Subjective Date of Service: 12/16/17 Interval History: Pt is feeling ok. He denies any pain. No SOB. No diarrhea. He is anxious to have surgery completed tomorrow. Objective Active Medications: Acetaminophen (Tylenol Tab*) 650 mg PO Q4H PRN PRN Reason: FEVER/PAIN Al Hydrox/Mg Hydrox/Simethicone (Maalox Plus*) 30 ml PO Q6H PRN PRN Reason: INDIGESTION Amlodipine Besylate (Norvasc Tab*) 5 mg PO DAILY [facility] Last Admin: 12/16/17 07:56 Dose: 5 mg Dextrose (D50w Syringe 50 Ml*) 12.5 gm IV PUSH .FOR FS < 60 - SS PRN PRN Reason: FS < 60 Docusate Sodium (Colace Cap*) 100 mg PO BID PRN PRN Reason: CONSTIPATION Fluoxetine HCl (Prozac Cap*) 40 mg PO DAILY [facility] Last Admin: 12/16/17 07:56 Dose: 40 mg Heparin Sodium (Porcine) (Heparin Vial(*)) 5,000 units SUBCUT Q8HR [facility] Last Admin: 12/16/17 13:32 Dose: 5,000 units Levofloxacin/Dextrose (Levaquin 500 Mg Ivpremix(*)) 500 mg in 100 mls @ 100 mls /hr IVPB Q24H [facility] Last Admin: 12/15/17 15:11 Dose: 100 mls/hr Metronidazole/Sodium Chloride (Flagyl 500 Mg Ivpb*) 500 mg in 100 mls @ 100 mls /hr IVPB Q8H [facility] Last Admin: 12/16/17 07:56 Dose: 100 mls/hr Insulin Glargine (Lantus(*)) 50 units SUBCUT Q24H [facility] Last Admin: 12/15/17 21:33 Dose: 50 units Insulin Human Lispro (Humalog*) 10 units SUBCUT AC [facility] Insulin Human Lispro (Humalog*) 0 units SUBCUT ACHS [facility] PRN Reason: Protocol Ondansetron HCl (Zofran Inj*) 4 mg IV Q4H PRN PRN Reason: NAUSEA/VOMITING Senna (Senokot Tab*) 1 tab PO BID PRN PRN Reason: CONSTIPATION Vital Signs - 8 hr 12/16/17 12/16/17 12/16/17 07:26 08:00 11:28 Temperature 97.3 F 98.1 F Pulse Rate 67 72 Respiratory 20 18 16 Rate Blood Pressure 158/77 147/69 (mmHg) O2 Sat by Pulse 96 95 Oximetry Oxygen Devices in Use Now: None Appearance: MIddle aged male sitting in a recliner, NAD Eyes: No Scleral Icterus Ears/Nose/Mouth/Throat: Mucous Membranes Moist Respiratory: Symmetrical Chest Expansion and Respiratory Effort, Clear to Auscultation Cardiovascular: NL Sounds; No Murmurs; No JVD, RRR, No Edema Abdominal: NL Sounds; No Tenderness; No Distention Extremities: No Clubbing, Cyanosis Skin: No Nodules or Sclerosis, - - Large ulceration on plantar surface of L midfoot, less surrounding erythema Neurological: Alert and Oriented x 3 Result Diagrams: 12/16/17 05:14 12/16/17 05:14 Microbiology and Other Data: Microbiology 12/13/17 04:05 Skin and Soft Tissue MRSA/MSSA (PCR - Final Foot Left Mrsa Negative S.aureus Negative Gram Stain - Final Diagnostic Imaging: Patient Name: BRIANNA GILLIS Medical Record#: [id number] Ordering Physician: Dave Hernandes MD Acct.#: [id number] : 1960 Age: 57 Sex: M Location: SURGICAL STAY UNIT Exam Date: 12/13/171041 ADM Status: ADM IN Order Information: MRI LOWER EXTREMITY LEFT W/O Accession Number: [id number] CPT: 41334 INDICATION: Plantar mid foot ulcer evaluate for osteomyelitis. COMPARISON: Comparison is made with a prior x-ray study of the left foot from December 13, 2017. TECHNIQUE: Axial, sagittal and coronal T1 and T2-weighted images of the left foot were obtained. FINDINGS: There is focal soft tissue swelling and a soft tissue defect present along the plantar medial aspect of the foot at the level of the first tarsometatarsal joint. No bone marrow edema or adjacent erosive changes are noted. No focal fluid collections are seen. There is moderate diffuse osteoarthritic change in the blood foot throughout the intertarsal and tarsometatarsal joints suggesting the possibility of a Charcot joint. IMPRESSION: 1. SOFT TISSUE SWELLING AND SOFT TISSUE ULCER, NO EVIDENCE FOR OSTEOMYELITIS. 2. FINDINGS SUGGESTIVE OF A CHARCOT JOINT. <Electronically signed by Syed Alfaro MD in [place]> 12/13/17 1311 Dictated By: Syed Alfaro MD Dictated Date/Time: 12/13/17 1311 Transcribed Date/Time: 12/13/17 1304 Copy to: Assess/Plan/Problems-Billing Mr Gillis is a 57 year old male with history of uncontrolled DM, neuropathy and previous osteomyelitis of the R foot who presents with non-healing Left foot wound. - Patient Problems (1) Non-healing ulcer of left foot Current Visit: Yes Status: Acute Code(s): L97.529 - NON-PRESSURE CHRONIC ULCER OTH PRT LEFT FOOT W UNSP SEVERITY SNOMED Code(s): 183729000 Comment: Plan for the patient to go to the OR tomorrow for debridement. Will continue levaquin and flagyl per Dr. Hernandes. WBC count trended down some today but CRP essentially unchanged. (2) Uncontrolled diabetes mellitus Current Visit: Yes Status: Acute Code(s): E11.65 - TYPE 2 DIABETES MELLITUS WITH HYPERGLYCEMIA SNOMED Code(s): 179494137 Comment: Sugars are worse again today. Keep lantus at 50 units SQ qHS and add lispro 10 units SQ with meals in addition to lispro sliding scale. (3) DVT prophylaxis Current Visit: Yes Status: Acute Code(s): JWH4359 - SNOMED Code(s): 681194737 Comment: SQ heparin (4) Full code status Current Visit: Yes Status: Acute Code(s): Z78.9 - OTHER SPECIFIED HEALTH STATUS SNOMED Code(s): 800834540 Status and Disposition: Remain inpatient for continued atbx tx and possible surgical debridement.
[2017-12-16] MEDS: Levofloxacin 500 MG IVPREMIX(* 500 MG/100 ML BAG IVPB SCH (15:16)
[2017-12-16] MEDS: Insulin GLARGINE(*) 1 UNITS UNIT SUBCUT SCH (21:59)
[2017-12-17] MEDS: metroNIDAZOLE IV 500 MG/100ML* 500 MG/100 ML BAG IVPB SCH ×3 (07:33→23:52)
[2017-12-17] MEDS: FLUoxetine CAP* 20 MG PO SCH (07:44)
[2017-12-17] MEDS: amLODIPine TAB* 5 MG PO SCH (07:44)
--- NOTE | 2017-12-17 08:52 | PN ---
Progress Note - Progress Note Date of Service: 12/17/17 SOAP: Subjective: 57 y/o male with L foot ulceration to go to OR today. VSS afebrile overnight. Patient without questions re: surgery, wondering about anes. Pain controlled, NPO. Objective: General- Well appearing obese male sitting in chair MSK- Dressing over L foot, drainage noted at plantar aspect, mild odor, hyperpigmentation of calf. Vital Signs Temp 97.6 F 12/17/17 07:28 Pulse 73 12/17/17 07:28 Resp 16 12/17/17 07:30 BP 148/74 12/17/17 07:28 Pulse Ox 92 12/17/17 07:28 Intake & Output 12/16/17 12/17/17 12/17/17 18:59 06:59 18:59 Intake Total 560 610 0 Output Total 600 1375 300 Balance -40 765 -300 Weight 145.15 kg Intake: IV Fluids 100 ABX - FLAGYL 100 Oral 560 510 0 Output: Urine 600 1375 300 Other: Estimated Void Medium # Bowel Movements 0 # Voids 1 Assessment: Stable L foot ulceration Plan: - Blood cx's negative. 4/5 L foto cultures- + strep agala, proteus jeremy. - ABX- on levoflox, metronidazole. - DM- insulin, moderately controlled between 170-220. - NPO p MN - OR today with Dr. Horne. Acetaminophen (Tylenol Tab*) 650 mg PO Q4H PRN PRN Reason: FEVER/PAIN Al Hydrox/Mg Hydrox/Simethicone (Maalox Plus*) 30 ml PO Q6H PRN PRN Reason: INDIGESTION Amlodipine Besylate (Norvasc Tab*) 5 mg PO DAILY [facility] Last Admin: 12/17/17 07:44 Dose: Not Given Dextrose (D50w Syringe 50 Ml*) 12.5 gm IV PUSH .FOR FS < 60 - SS PRN PRN Reason: FS < 60 Docusate Sodium (Colace Cap*) 100 mg PO BID PRN PRN Reason: CONSTIPATION Fluoxetine HCl (Prozac Cap*) 40 mg PO DAILY [facility] Last Admin: 12/17/17 07:44 Dose: Not Given Levofloxacin/Dextrose (Levaquin 500 Mg Ivpremix(*)) 500 mg in 100 mls @ 100 mls /hr IVPB Q24H [facility] Last Admin: 12/16/17 15:16 Dose: 100 mls/hr Metronidazole/Sodium Chloride (Flagyl 500 Mg Ivpb*) 500 mg in 100 mls @ 100 mls /hr IVPB Q8H [facility] Last Admin: 12/17/17 07:33 Dose: 100 mls/hr Insulin Glargine (Lantus(*)) 50 units SUBCUT Q24H [facility] Last Admin: 12/16/17 21:59 Dose: 50 units Insulin Human Lispro (Humalog*) 10 units SUBCUT AC [facility] Last Admin: 12/17/17 08:57 Dose: Not Given Insulin Human Lispro (Humalog*) 0 units SUBCUT ACHS [facility] PRN Reason: Protocol Last Admin: 12/17/17 08:57 Dose: Not Given Ondansetron HCl (Zofran Inj*) 4 mg IV Q4H PRN PRN Reason: NAUSEA/VOMITING Senna (Senokot Tab*) 1 tab PO BID PRN PRN Reason: CONSTIPATION
[2017-12-17] MEDS: Insulin LISPRO* 1 UNITS UNIT SUBCUT SCH ×7 (08:57→20:29)
[2017-12-17] MEDS ORDERED: Midazolam* 1 MG/ML 2 ML VIAL (2 MG) ONE (14:19)
[2017-12-17] MEDS ORDERED: fentaNYL* 50 MCG/ML 2 ML VIAL (100 MCG VIAL) ONE (14:19)
[2017-12-17] MEDS ORDERED: Levofloxacin 500 MG IVPREMIX(* 500 MG/100 ML BAG IVPB ONE (14:38)
[2017-12-17] MEDS ORDERED: Bupivacaine 0.5%* 50 ML VIAL ONE (14:41)
[2017-12-17] MEDS: Levofloxacin 500 MG IVPREMIX(* 500 MG/100 ML BAG IVPB SCH (14:42)
[2017-12-17] MEDS ORDERED: Lidocaine 2% PF* 10 ML AMP ONE (14:42)
[2017-12-17] MEDS ORDERED: Naloxone* 0.4 MG/ML 1 ML VIAL IV PRN (14:57)
--- NOTE | 2017-12-17 15:25 | PN ---
Subjective Date of Service: 12/17/17 Interval History: Pt is feeling the same as he has. He denies any pain. He is frustrated that he has been waiting in pre-op for hours. Objective Active Medications: Acetaminophen (Tylenol Tab*) 650 mg PO Q4H PRN PRN Reason: FEVER/PAIN Al Hydrox/Mg Hydrox/Simethicone (Maalox Plus*) 30 ml PO Q6H PRN PRN Reason: INDIGESTION Amlodipine Besylate (Norvasc Tab*) 5 mg PO DAILY [facility] Last Admin: 12/17/17 07:44 Dose: Not Given Dextrose (D50w Syringe 50 Ml*) 12.5 gm IV PUSH .FOR FS < 60 - SS PRN PRN Reason: FS < 60 Docusate Sodium (Colace Cap*) 100 mg PO BID PRN PRN Reason: CONSTIPATION Fluoxetine HCl (Prozac Cap*) 40 mg PO DAILY [facility] Last Admin: 12/17/17 07:44 Dose: Not Given Levofloxacin/Dextrose (Levaquin 500 Mg Ivpremix(*)) 500 mg in 100 mls @ 100 mls /hr IVPB Q24H [facility] Last Admin: 12/17/17 14:42 Dose: 100 mls/hr Metronidazole/Sodium Chloride (Flagyl 500 Mg Ivpb*) 500 mg in 100 mls @ 100 mls /hr IVPB Q8H [facility] Last Admin: 12/17/17 07:33 Dose: 100 mls/hr Insulin Glargine (Lantus(*)) 50 units SUBCUT Q24H [facility] Last Admin: 12/16/17 21:59 Dose: 50 units Insulin Human Lispro (Humalog*) 10 units SUBCUT AC [facility] Last Admin: 12/17/17 12:30 Dose: Not Given Insulin Human Lispro (Humalog*) 0 units SUBCUT ACHS [facility] PRN Reason: Protocol Last Admin: 12/17/17 12:30 Dose: Not Given Naloxone HCl (Narcan*) 0.08 mg IV Q2M PRN PRN Reason: severe induced resp depression Stop: 12/18/17 14:56 Ondansetron HCl (Zofran Inj*) 4 mg IV Q4H PRN PRN Reason: NAUSEA/VOMITING Senna (Senokot Tab*) 1 tab PO BID PRN PRN Reason: CONSTIPATION Vital Signs - 8 hr 12/17/17 12/17/17 07:28 07:30 Temperature 97.6 F Pulse Rate 73 Respiratory 17 16 Rate Blood Pressure 148/74 (mmHg) O2 Sat by Pulse 92 Oximetry Oxygen Devices in Use Now: None Appearance: Middle aged male lying in a stretcher, NAD Eyes: No Scleral Icterus Ears/Nose/Mouth/Throat: Mucous Membranes Moist Respiratory: Symmetrical Chest Expansion and Respiratory Effort, Clear to Auscultation Cardiovascular: NL Sounds; No Murmurs; No JVD, RRR, No Edema Abdominal: NL Sounds; No Tenderness; No Distention Extremities: No Clubbing, Cyanosis Skin: - - wound on plantar surface of L foot not inspected today Neurological: Alert and Oriented x 3 Result Diagrams: 12/16/17 05:14 12/16/17 05:14 Microbiology and Other Data: Microbiology 12/13/17 04:05 Skin and Soft Tissue MRSA/MSSA (PCR - Final Foot Left Mrsa Negative S.aureus Negative Gram Stain - Final Diagnostic Imaging: Patient Name: BRIANNA GILLIS Medical Record#: [id number] Ordering Physician: Dave Hernandes MD Acct.#: [id number] : 1960 Age: 57 Sex: M Location: SURGICAL STAY UNIT Exam Date: 12/13/171041 ADM Status: ADM IN Order Information: MRI LOWER EXTREMITY LEFT W/O Accession Number: [id number] CPT: 88649 INDICATION: Plantar mid foot ulcer evaluate for osteomyelitis. COMPARISON: Comparison is made with a prior x-ray study of the left foot from December 13, 2017. TECHNIQUE: Axial, sagittal and coronal T1 and T2-weighted images of the left foot were obtained. FINDINGS: There is focal soft tissue swelling and a soft tissue defect present along the plantar medial aspect of the foot at the level of the first tarsometatarsal joint. No bone marrow edema or adjacent erosive changes are noted. No focal fluid collections are seen. There is moderate diffuse osteoarthritic change in the blood foot throughout the intertarsal and tarsometatarsal joints suggesting the possibility of a Charcot joint. IMPRESSION: 1. SOFT TISSUE SWELLING AND SOFT TISSUE ULCER, NO EVIDENCE FOR OSTEOMYELITIS. 2. FINDINGS SUGGESTIVE OF A CHARCOT JOINT. <Electronically signed by Syed Alfaro MD in [place]> 12/13/17 1311 Dictated By: Syed Alfaro MD Dictated Date/Time: 12/13/17 1311 Transcribed Date/Time: 12/13/17 1304 Copy to: Assess/Plan/Problems-Billing Mr Gillis is a 57 year old male with history of uncontrolled DM, neuropathy and previous osteomyelitis of the R foot who presents with non-healing Left foot wound. - Patient Problems (1) Non-healing ulcer of left foot Current Visit: Yes Status: Acute Code(s): L97.529 - NON-PRESSURE CHRONIC ULCER OTH PRT LEFT FOOT W UNSP SEVERITY SNOMED Code(s): 783984846 Comment: Plan for the patient to go to the OR now for debridement. Will continue levaquin and flagyl per Dr. Hernandes. Follow up labs tomorrow. (2) Uncontrolled diabetes mellitus Current Visit: Yes Status: Acute Code(s): E11.65 - TYPE 2 DIABETES MELLITUS WITH HYPERGLYCEMIA SNOMED Code(s): 405979914 Comment: Sugars are slightly better today but he has not been eating. Will continue the current regimen and make adjustments as needed. (3) DVT prophylaxis Current Visit: Yes Status: Acute Code(s): QHH9814 - SNOMED Code(s): 186678327 Comment: SQ heparin (4) Full code status Current Visit: Yes Status: Acute Code(s): Z78.9 - OTHER SPECIFIED HEALTH STATUS SNOMED Code(s): 438092738 Status and Disposition: Remain inpatient for continued atbx tx and possible surgical debridement.
[2017-12-17] MEDS: Insulin GLARGINE(*) 1 UNITS UNIT SUBCUT SCH (20:30)
--- NOTE | 2017-12-18 06:19 | OP ---
DATE OF OPERATION: 12/17/17 - ROOM #[id number] DATE OF : 64 SURGEON: Rizwan Walker MD. [facility]ENCH PROFESSOR: Tanvi Petersen PA-C. PRE-OP DIAGNOSES: 1. Infected left plantar ulcer. 2. Neuropathy. POST-OP DIAGNOSES: 1. Infected left plantar ulcer. 2. Neuropathy. OPERATIVE PROCEDURE: Aggressive debridement, left plantar ulcer, and VAC placement. DESCRIPTION OF PROCEDURE: The patient was taken to the operating room where we used a 10 blade, to ellipticize the quarter-sized plantar medial ulcer of his left medial arch. We extended the incision distally and proximally to allow flap raise along the medial column. A 1/2-inch curved osteotome was used to remove a portion of the medial cuneiform and some of the medial navicular. We used a 4 mm power jackelyn to freshen the bone back to good bleeding surfaces. 3 L pulsatile lavage was used to cleanse the bed. Cultures were sent as well as copious bone specimen. We then, after freshening all the skin edges and debriding the extensive plantar callus, closed a portion of the distal wound and proximal wound. We then placed a 3 x 4 cm VAC sponge, 2 cm deep at the open wound, attaching this to 120 mm of suction with a plaster dressing. [id number]/[facility] #: [id number] [facility]
[2017-12-18] MEDS: FLUoxetine CAP* 20 MG PO SCH (08:27)
[2017-12-18] MEDS: amLODIPine TAB* 5 MG PO SCH (08:28)
[2017-12-18] MEDS: metroNIDAZOLE IV 500 MG/100ML* 500 MG/100 ML BAG IVPB SCH ×2 (08:28→16:28)
[2017-12-18 09:05] LABS: Hematocrit 35 % (42-52); Hemoglobin 11.1 g/dl (14.0-18.0); Mean Corpuscular HGB Conc 32 g/dl (31-36); Mean Corpuscular Hemoglobin 23 pg (27-31); Mean Corpuscular Volume 72 fL (80-94); Mean Platelet Volume 6.8 um3 (7.4-10.4); Platelet Count 398 10^3/ul (150-450); Red Blood Count 4.82 10^6/ul (4.0-5.4); Red Cell Distribution Width 19 % (10.5-15); White Blood Count 13.1 10^3/ul (3.5-10.8)
[2017-12-18 09:19] LABS: EGFR Non-African American 74.1 (>60)
[2017-12-18] MEDS: Insulin LISPRO* 1 UNITS UNIT SUBCUT SCH ×7 (09:19→21:15)
--- NOTE | 2017-12-18 10:15 | PN ---
Progress Note - Progress Note Date of Service: 12/18/17 SOAP: Subjective: [57 y/o male seen sitting up in chair today. Pt does not have any questions. States he is doing well. Feels like he is "just hanging out in limbo". Pt denies any chest pain or SOB. Objective: General- Well appearing obese male sitting in chair MSK- Dressing over L foot and calf. Dressing appears c/d/i. There is a wound vac present. minimal drainage in the wound vac at this time. He has decreased sensation in the exposed toes of his foot. Is able to wiggle toes. Vital Signs Temp 97.8 F 12/18/17 07:28 Pulse 78 12/18/17 07:28 Resp 18 12/18/17 08:00 BP 169/87 12/18/17 07:28 Pulse Ox 97 12/18/17 07:28 Intake & Output 12/17/17 12/18/17 12/18/17 18:59 06:59 18:59 Intake Total 600 1400 200 Output Total 600 925 200 Balance 0 475 0 Weight 320 lb Intake: IV Fluids 600 LR 600 IVPB 100 ABX - FLAGYL 100 Oral 0 1300 200 Output: Urine 600 925 200 Other: # Bowel Movements 0 Assessment: S/P Left foot ulcer, wound vac placement. Plan: - Continue with abx. - Continue with current pain meds. - Continue with DM mngmt - Plan to OR on with removal of vac and possible closure - NWB.
--- NOTE | 2017-12-18 14:02 | PN ---
Subjective Date of Service: 12/18/17 Interval History: Pain well controlled No questions, good understanding of care thus far Last BM yesterday OOB to chair Objective Active Medications: Acetaminophen (Tylenol Tab*) 650 mg PO Q4H PRN PRN Reason: FEVER/PAIN Al Hydrox/Mg Hydrox/Simethicone (Maalox Plus*) 30 ml PO Q6H PRN PRN Reason: INDIGESTION Amlodipine Besylate (Norvasc Tab*) 5 mg PO DAILY [facility] Last Admin: 12/18/17 08:28 Dose: 5 mg Dextrose (D50w Syringe 50 Ml*) 12.5 gm IV PUSH .FOR FS < 60 - SS PRN PRN Reason: FS < 60 Docusate Sodium (Colace Cap*) 100 mg PO BID PRN PRN Reason: CONSTIPATION Fluoxetine HCl (Prozac Cap*) 40 mg PO DAILY [facility] Last Admin: 12/18/17 08:27 Dose: 40 mg Levofloxacin/Dextrose (Levaquin 500 Mg Ivpremix(*)) 500 mg in 100 mls @ 100 mls /hr IVPB Q24H [facility] Last Admin: 12/17/17 14:42 Dose: 100 mls/hr Metronidazole/Sodium Chloride (Flagyl 500 Mg Ivpb*) 500 mg in 100 mls @ 100 mls /hr IVPB Q8H [facility] Last Admin: 12/18/17 08:28 Dose: 100 mls/hr Insulin Glargine (Lantus(*)) 50 units SUBCUT Q24H [facility] Last Admin: 12/17/17 20:30 Dose: 50 units Insulin Human Lispro (Humalog*) 10 units SUBCUT AC [facility] Last Admin: 12/18/17 13:22 Dose: 10 units Insulin Human Lispro (Humalog*) 0 units SUBCUT ACHS [facility] PRN Reason: Protocol Last Admin: 12/18/17 13:22 Dose: 6 units Naloxone HCl (Narcan*) 0.08 mg IV Q2M PRN PRN Reason: severe induced resp depression Stop: 12/18/17 14:56 Ondansetron HCl (Zofran Inj*) 4 mg IV Q4H PRN PRN Reason: NAUSEA/VOMITING Senna (Senokot Tab*) 1 tab PO BID PRN PRN Reason: CONSTIPATION Vital Signs - 8 hr 12/18/17 12/18/17 12/18/17 07:28 08:00 11:37 Temperature 97.8 F 97.7 F Pulse Rate 78 79 Respiratory 16 18 16 Rate Blood Pressure 169/87 (mmHg) O2 Sat by Pulse 97 93 Oximetry 12/18/17 11:40 Temperature 97.2 F Pulse Rate 78 Respiratory 16 Rate Blood Pressure 146/64 (mmHg) O2 Sat by Pulse 94 Oximetry Oxygen Devices in Use Now: None Appearance: NAD, sitting in chair Eyes: No Scleral Icterus, PERRLA Ears/Nose/Mouth/Throat: Clear Oropharnyx, Mucous Membranes Moist Neck: NL Appearance and Movements; NL JVP, Trachea Midline Respiratory: Symmetrical Chest Expansion and Respiratory Effort, Clear to Auscultation Cardiovascular: NL Sounds; No Murmurs; No JVD, RRR Abdominal: NL Sounds; No Tenderness; No Distention, No Hepatosplenomegaly Lymphatic: No Cervical Adenopathy Extremities: - - wound vac left foot Neurological: Alert and Oriented x 3 Result Diagrams: 12/18/17 08:23 12/18/17 08:23 Microbiology and Other Data: Microbiology 12/13/17 04:05 Skin and Soft Tissue MRSA/MSSA (PCR - Final Foot Left Mrsa Negative S.aureus Negative Gram Stain - Final Diagnostic Imaging: Patient Name: BRIANNA GILLIS Medical Record#: [id number] Ordering Physician: Dave Hernandes MD Acct.#: [id number] : 1960 Age: 57 Sex: M Location: SURGICAL STAY UNIT Exam Date: 12/13/171041 ADM Status: ADM IN Order Information: MRI LOWER EXTREMITY LEFT W/O Accession Number: [id number] CPT: 30738 INDICATION: Plantar mid foot ulcer evaluate for osteomyelitis. COMPARISON: Comparison is made with a prior x-ray study of the left foot from December 13, 2017. TECHNIQUE: Axial, sagittal and coronal T1 and T2-weighted images of the left foot were obtained. FINDINGS: There is focal soft tissue swelling and a soft tissue defect present along the plantar medial aspect of the foot at the level of the first tarsometatarsal joint. No bone marrow edema or adjacent erosive changes are noted. No focal fluid collections are seen. There is moderate diffuse osteoarthritic change in the blood foot throughout the intertarsal and tarsometatarsal joints suggesting the possibility of a Charcot joint. IMPRESSION: 1. SOFT TISSUE SWELLING AND SOFT TISSUE ULCER, NO EVIDENCE FOR OSTEOMYELITIS. 2. FINDINGS SUGGESTIVE OF A CHARCOT JOINT. <Electronically signed by Syed Alfaro MD in [place]> 12/13/17 1311 Dictated By: Syed Alfaro MD Dictated Date/Time: 12/13/17 1311 Transcribed Date/Time: 12/13/17 1304 Copy to: Assess/Plan/Problems-Billing Mr Gillis is a 57 year old male with history of uncontrolled DM, neuropathy and previous osteomyelitis of the R foot who presents with non-healing Left foot wound s/p OR for debridement and wound vac placement 12/17 - Patient Problems (1) Non-healing ulcer of left foot Comment: OR for debridement 12/[address] Aaron bhakta and marnie will need outpatient long course of abx (2) Uncontrolled diabetes mellitus Current Visit: Yes Comment: Lantus 50 units High dose lispro SS 1:10 CC lispro scale (3) HTN (hypertension) Comment: amlodipine (4) DVT prophylaxis Comment: SQ heparin Status and Disposition: Remain inpatient for continued abx tx and OR
[2017-12-18] MEDS: Levofloxacin 500 MG IVPREMIX(* 500 MG/100 ML BAG IVPB SCH (14:55)
[2017-12-18] MEDS: Insulin GLARGINE(*) 1 UNITS UNIT SUBCUT SCH (21:18)
[2017-12-19] MEDS: metroNIDAZOLE IV 500 MG/100ML* 500 MG/100 ML BAG IVPB SCH ×3 (00:11→16:41)
[2017-12-19 07:46] LABS: Immature Retic Fraction 0.49
[2017-12-19 07:53] LABS: ABS Basophils 0.1 10^3/ul (0-0.2); ABS Eosinophils 0.3 10^3/ul (0-0.6); ABS Lymphocytes 1.8 10^3/ul (1.0-4.8); ABS Monocytes 1.3 10^3/ul (0-0.8); ABS Neutrophils 9.9 10^3/ul (1.5-7.7); ABS Nucleated RBC 0 10^3/ul; Corrected Retic Count 1.6 % (0.5-1.5); Eosinophil % 2.3 % (0-6); Hematocrit 35 % (42-52); Hematocrit for Retic CNT 35 % (42-52); Hemoglobin 11.5 g/dl (14.0-18.0); Lymphocyte % 13.1 % (25-47); Mean Corpuscular HGB Conc 32 g/dl (31-36); Mean Corpuscular Hemoglobin 23 pg (27-31); Mean Corpuscular Volume 72 fL (80-94); Mean Platelet Volume 6.7 um3 (7.4-10.4); Nucleated Red Blood Cells % 0.1; Platelet Count 398 10^3/ul (150-450); Red Cell Distribution Width 19 % (10.5-15); White Blood Count 13.4 10^3/ul (3.5-10.8)
[2017-12-19] MEDS: FLUoxetine CAP* 20 MG PO SCH (09:42)
[2017-12-19] MEDS: Insulin LISPRO* 1 UNITS UNIT SUBCUT SCH ×7 (09:42→22:00)
[2017-12-19] MEDS: amLODIPine TAB* 5 MG PO SCH (09:42)
[2017-12-19] MEDS: Levofloxacin 500 MG IVPREMIX(* 500 MG/100 ML BAG IVPB SCH (15:04)
--- NOTE | 2017-12-19 16:27 | PN ---
Progress Note - Progress Note Date of Service: 12/19/17 SOAP: Subjective: []Patient seen at bedside. He is in no pain, denies fever, chills, CP, SOB Objective: Vital Signs Temp 98.4 F 12/19/17 15:10 Pulse 78 12/19/17 15:10 Resp 18 12/19/17 15:10 BP 126/65 12/19/17 15:10 Pulse Ox 96 12/19/17 15:10 Intake & Output 12/18/17 12/19/17 12/19/17 18:59 06:59 18:59 Intake Total 1065 979 865 Output Total 2049 1225 700 Balance -985 -246 165 Intake: IV Fluids 215 129 ABX - FLAGYL 215 100 NS (0.9%) 29 Oral 850 850 865 Output: Urine 2049 1225 700 Other: Estimated Void Large # Bowel Movements 0 # Voids 2 1 Laboratory Last Values WBC 13.4 10^3/ul (3.5-10.8) H 12/19/17 07:21 RBC 4.90 10^6/ul (4.0-5.4) 12/19/17 07:21 RBC (Retic) 4.90 10^6/ul (4.6-6.2) 12/19/17 07:21 Hgb 11.5 g/dl (14.0-18.0) L 12/19/17 07:21 Hct 35 % (42-52) L 12/19/17 07:21 HCT (Retic) 35 % (42-52) L 12/19/17 07:21 MCV 72 fL (80-94) L 12/19/17 07:21 MCH 23 pg (27-31) L 12/19/17 07:21 MCHC 32 g/dl (31-36) 12/19/17 07:21 RDW 19 % (10.5-15) H 12/19/17 07:21 Plt Count 398 10^3/ul (150-450) 12/19/17 07:21 MPV 6.7 um3 (7.4-10.4) L 12/19/17 07:21 Neut % (Auto) 74.4 % (38-83) 12/19/17 07:21 Lymph % (Auto) 13.1 % (25-47) L 12/19/17 07:21 [place] % (Auto) 9.6 % (0-7) H 12/19/17 07:21 Eos % (Auto) 2.3 % (0-6) 12/19/17 07:21 Baso % (Auto) 0.6 % (0-2) 12/19/17 07:21 Absolute Neuts (auto) 9.9 10^3/ul (1.5-7.7) H 12/19/17 07:21 Absolute Lymphs (auto) 1.8 10^3/ul (1.0-4.8) 12/19/17 07:21 Absolute Monos (auto) 1.3 10^3/ul (0-0.8) H 12/19/17 07:21 Absolute Eos (auto) 0.3 10^3/ul (0-0.6) 12/19/17 07:21 Absolute Basos (auto) 0.1 10^3/ul (0-0.2) 12/19/17 07:21 Absolute Nucleated RBC 0 10^3/ul 12/19/17 07:21 Nucleated RBC % 0.1 12/19/17 07:21 Retic Count, Calc 2.0 % (0.5-1.5) H 12/19/17 07:21 Corrected Retic Count 1.6 % (0.5-1.5) H 12/19/17 07:21 Retic Shift Factor 1.5 12/19/17 07:21 Retic Production Index 1.10 12/19/17 07:21 Immature Retic Fraction 0.49 12/19/17 07:21 Mean Retic Volume 96.5 12/19/17 07:21 INR (Anticoag Therapy) 1.05 (0.77-1.02) H 12/13/17 00:20 APTT 33.6 seconds (26.0-36.3) 12/13/17 00:20 Sodium 130 mmol/L (139-145) L 12/18/17 08:23 Potassium 4.4 mmol/L (3.5-5.0) 12/18/17 08:23 Chloride 97 mmol/L (101-111) L 12/18/17 08:23 Carbon Dioxide 28 mmol/L (22-32) 12/18/17 08:23 Anion Gap 5 mmol/L (2-11) 12/18/17 08:23 BUN 17 mg/dL (6-24) 12/18/17 08:23 Creatinine 1.04 mg/dL (0.67-1.17) 12/18/17 08:23 Est GFR ( Amer) 95.4 (>60) 12/18/17 08:23 Est GFR (Non-Af Amer) 74.1 (>60) 12/18/17 08:23 BUN/Creatinine Ratio 16.3 (8-20) 12/18/17 08:23 Glucose 130 mg/dL (70-100) H 12/18/17 08:23 POC Glucose (mg/dL) 244 mg/dL (70-100) H 12/19/17 11:42 Hemoglobin A1c 9.9 % (4.0-5.6) H 12/13/17 14:26 Lactic Acid 1.8 mmol/L (0.5-2.0) 12/13/17 00:20 Calcium 9.1 mg/dL (8.6-10.3) 12/18/17 08:23 Iron 30 ug/dL (50-212) L 12/19/17 07:21 TIBC 280 mcg/dL (250-450) 12/19/17 07:21 % Saturation 11 % (15-55) L 12/19/17 07:21 Unsat Iron Binding 250 ug/dL 12/19/17 07:21 Transferrin 200 mg/dL (203-362) L 12/19/17 07:21 Ferritin 166.6 ng/mL (24-336) 12/19/17 07:21 Total Bilirubin 0.30 mg/dL (0.2-1.0) 12/13/17 00:20 AST 8 U/L (13-39) L 12/13/17 00:20 ALT 9 U/L (7-52) 12/13/17 00:20 Alkaline Phosphatase 130 U/L (34-104) H 12/13/17 00:20 C-Reactive Protein 53.27 mg/L (< 5.00) H 12/16/17 05:14 Total Protein 8.0 g/dL (6.4-8.9) 12/13/17 00:20 Albumin 3.5 g/dL (3.2-5.2) 12/13/17 00:20 Globulin 4.5 g/dL (2-4) H 12/13/17 00:20 Albumin/Globulin Ratio 0.8 (1-3) L 12/13/17 00:20 Vancomycin Trough 18.4 mcg/mL 12/14/17 09:41 General: Well appearing, NAD LLE: Splint in place. Wound vac functioning. Exposed toes lack sensation, capillary refill less than two seconds, able to wiggle. Proximal to splint without erythema or tenderness. Assessment :S/P Left foot ulcer, wound vac placement. Plan: - NWB LLE - Wound vac change at bedside tomorrow
--- NOTE | 2017-12-19 18:47 | PN ---
Subjective Date of Service: 12/19/17 Interval History: Pain well controlled. Has no complaints Objective Active Medications: Acetaminophen (Tylenol Tab*) 650 mg PO Q4H PRN PRN Reason: FEVER/PAIN Al Hydrox/Mg Hydrox/Simethicone (Maalox Plus*) 30 ml PO Q6H PRN PRN Reason: INDIGESTION Amlodipine Besylate (Norvasc Tab*) 5 mg PO DAILY [facility] Last Admin: 12/19/17 09:42 Dose: 5 mg Dextrose (D50w Syringe 50 Ml*) 12.5 gm IV PUSH .FOR FS < 60 - SS PRN PRN Reason: FS < 60 Docusate Sodium (Colace Cap*) 100 mg PO BID PRN PRN Reason: CONSTIPATION Fluoxetine HCl (Prozac Cap*) 40 mg PO DAILY [facility] Last Admin: 12/19/17 09:42 Dose: 40 mg Levofloxacin/Dextrose (Levaquin 500 Mg Ivpremix(*)) 500 mg in 100 mls @ 100 mls /hr IVPB Q24H [facility] Last Admin: 12/19/17 15:04 Dose: 100 mls/hr Metronidazole/Sodium Chloride (Flagyl 500 Mg Ivpb*) 500 mg in 100 mls @ 100 mls /hr IVPB Q8H [facility] Last Admin: 12/19/17 16:41 Dose: 100 mls/hr Insulin Glargine (Lantus(*)) 50 units SUBCUT Q24H [facility] Last Admin: 12/18/17 21:18 Dose: 50 units Insulin Human Lispro (Humalog*) 10 units SUBCUT AC [facility] Last Admin: 12/19/17 17:57 Dose: 10 units Insulin Human Lispro (Humalog*) 0 units SUBCUT ACHS [facility] PRN Reason: Protocol Last Admin: 12/19/17 17:57 Dose: 3 units Ondansetron HCl (Zofran Inj*) 4 mg IV Q4H PRN PRN Reason: NAUSEA/VOMITING Senna (Senokot Tab*) 1 tab PO BID PRN PRN Reason: CONSTIPATION Vital Signs - 8 hr 12/19/17 12/19/17 11:15 15:10 Temperature 97.8 F 98.4 F Pulse Rate 76 78 Respiratory 18 18 Rate Blood Pressure 160/75 126/65 (mmHg) O2 Sat by Pulse 93 96 Oximetry Oxygen Devices in Use Now: None Appearance: NAD Eyes: No Scleral Icterus Ears/Nose/Mouth/Throat: NL Teeth, Lips, Gums, Clear Oropharnyx Neck: NL Appearance and Movements; NL JVP Respiratory: Symmetrical Chest Expansion and Respiratory Effort, Clear to Auscultation Cardiovascular: RRR Abdominal: NL Sounds; No Tenderness; No Distention Lymphatic: No Cervical Adenopathy Extremities: - - wound vac in place Skin: - - erythema under facial hair under chin Neurological: Alert and Oriented x 3 Result Diagrams: 12/19/17 07:21 12/18/17 08:23 Microbiology and Other Data: Microbiology 12/13/17 04:05 Skin and Soft Tissue MRSA/MSSA (PCR - Final Foot Left Mrsa Negative S.aureus Negative Gram Stain - Final Diagnostic Imaging: Patient Name: BRIANNA GILLIS Medical Record#: [id number] Ordering Physician: Dave Hernandes MD Acct.#: [id number] : 1960 Age: 57 Sex: M Location: SURGICAL STAY UNIT Exam Date: 12/13/171041 ADM Status: ADM IN Order Information: MRI LOWER EXTREMITY LEFT W/O Accession Number: [id number] CPT: 55554 INDICATION: Plantar mid foot ulcer evaluate for osteomyelitis. COMPARISON: Comparison is made with a prior x-ray study of the left foot from December 13, 2017. TECHNIQUE: Axial, sagittal and coronal T1 and T2-weighted images of the left foot were obtained. FINDINGS: There is focal soft tissue swelling and a soft tissue defect present along the plantar medial aspect of the foot at the level of the first tarsometatarsal joint. No bone marrow edema or adjacent erosive changes are noted. No focal fluid collections are seen. There is moderate diffuse osteoarthritic change in the blood foot throughout the intertarsal and tarsometatarsal joints suggesting the possibility of a Charcot joint. IMPRESSION: 1. SOFT TISSUE SWELLING AND SOFT TISSUE ULCER, NO EVIDENCE FOR OSTEOMYELITIS. 2. FINDINGS SUGGESTIVE OF A CHARCOT JOINT. <Electronically signed by Syed Alfaro MD in [place]> 12/13/17 1311 Dictated By: Syed Alfaro MD Dictated Date/Time: 12/13/17 1311 Transcribed Date/Time: 12/13/17 1304 Copy to: Assess/Plan/Problems-Billing Mr Gillis is a 57 year old male with history of uncontrolled DM, neuropathy and previous osteomyelitis of the R foot who presents with non-healing Left foot wound s/p OR for debridement and wound vac placement 12/17 - Patient Problems (1) Non-healing ulcer of left foot Comment: OR for debridement 12/[address] Aaron bhakta and marnie will continue same abx x 3 weeks PO after discharge (d/w ID) (2) Uncontrolled diabetes mellitus Current Visit: Yes Comment: Lantus 50 units High dose lispro SS 1:10 CC lispro scale (3) HTN (hypertension) Comment: amlodipine (4) DVT prophylaxis Comment: SQ heparin Status and Disposition: Remain inpatient for continued abx tx and OR
[2017-12-19] MEDS: Insulin GLARGINE(*) 1 UNITS UNIT SUBCUT SCH (22:01)
[2017-12-19] MEDS: Ketoconazole 2 % CREAM (NF) 30 GM TUBE TOPICAL SCH (23:12)
[2017-12-20] MEDS ORDERED: NS 0.9% 1000 ML* 1,000 ML IV SCH (00:15)
[2017-12-20] MEDS: metroNIDAZOLE IV 500 MG/100ML* 500 MG/100 ML BAG IVPB SCH ×4 (00:33→23:47)
[2017-12-20] MEDS: Insulin LISPRO* 1 UNITS UNIT SUBCUT SCH ×8 (06:28→21:54)
[2017-12-20] MEDS ORDERED: Insulin LISPRO* 1 UNITS UNIT SUBCUT ONE (08:06)
[2017-12-20] MEDS: Ketoconazole 2 % CREAM (NF) 30 GM TUBE TOPICAL SCH ×2 (09:08→21:53)
[2017-12-20] MEDS: FLUoxetine CAP* 20 MG PO SCH (09:09)
[2017-12-20] MEDS: amLODIPine TAB* 5 MG PO SCH (09:09)
--- NOTE | 2017-12-20 14:14 | PN ---
Progress Note - Progress Note Date of Service: 12/20/17 SOAP: Subjective: []Patient seen at beside. He is in no pain. Denies fever, chills, CP, SOB. Objective: [] General: Well appearing, NAD LLE: Splint in place. Wound vac functioning. Exposed toes lack sensation, capillary refill less than two seconds, able to wiggle. Proximal to splint without erythema or tenderness. Laboratory Last Values WBC 13.4 10^3/ul (3.5-10.8) H 12/19/17 07:21 RBC 4.90 10^6/ul (4.0-5.4) 12/19/17 07:21 RBC (Retic) 4.90 10^6/ul (4.6-6.2) 12/19/17 07:21 Hgb 11.5 g/dl (14.0-18.0) L 12/19/17 07:21 Hct 35 % (42-52) L 12/19/17 07:21 HCT (Retic) 35 % (42-52) L 12/19/17 07:21 MCV 72 fL (80-94) L 12/19/17 07:21 MCH 23 pg (27-31) L 12/19/17 07:21 MCHC 32 g/dl (31-36) 12/19/17 07:21 RDW 19 % (10.5-15) H 12/19/17 07:21 Plt Count 398 10^3/ul (150-450) 12/19/17 07:21 MPV 6.7 um3 (7.4-10.4) L 12/19/17 07:21 Neut % (Auto) 74.4 % (38-83) 12/19/17 07:21 Lymph % (Auto) 13.1 % (25-47) L 12/19/17 07:21 [place] % (Auto) 9.6 % (0-7) H 12/19/17 07:21 Eos % (Auto) 2.3 % (0-6) 12/19/17 07:21 Baso % (Auto) 0.6 % (0-2) 12/19/17 07:21 Absolute Neuts (auto) 9.9 10^3/ul (1.5-7.7) H 12/19/17 07:21 Absolute Lymphs (auto) 1.8 10^3/ul (1.0-4.8) 12/19/17 07:21 Absolute Monos (auto) 1.3 10^3/ul (0-0.8) H 12/19/17 07:21 Absolute Eos (auto) 0.3 10^3/ul (0-0.6) 12/19/17 07:21 Absolute Basos (auto) 0.1 10^3/ul (0-0.2) 12/19/17 07:21 Absolute Nucleated RBC 0 10^3/ul 12/19/17 07:21 Nucleated RBC % 0.1 12/19/17 07:21 Retic Count, Calc 2.0 % (0.5-1.5) H 12/19/17 07:21 Corrected Retic Count 1.6 % (0.5-1.5) H 12/19/17 07:21 Retic Shift Factor 1.5 12/19/17 07:21 Retic Production Index 1.10 12/19/17 07:21 Immature Retic Fraction 0.49 12/19/17 07:21 Mean Retic Volume 96.5 12/19/17 07:21 INR (Anticoag Therapy) 1.05 (0.77-1.02) H 12/13/17 00:20 APTT 33.6 seconds (26.0-36.3) 12/13/17 00:20 Sodium 130 mmol/L (139-145) L 12/18/17 08:23 Potassium 4.4 mmol/L (3.5-5.0) 12/18/17 08:23 Chloride 97 mmol/L (101-111) L 12/18/17 08:23 Carbon Dioxide 28 mmol/L (22-32) 12/18/17 08:23 Anion Gap 5 mmol/L (2-11) 12/18/17 08:23 BUN 17 mg/dL (6-24) 12/18/17 08:23 Creatinine 1.04 mg/dL (0.67-1.17) 12/18/17 08:23 Est GFR ( Amer) 95.4 (>60) 12/18/17 08:23 Est GFR (Non-Af Amer) 74.1 (>60) 12/18/17 08:23 BUN/Creatinine Ratio 16.3 (8-20) 12/18/17 08:23 Glucose 130 mg/dL (70-100) H 12/18/17 08:23 POC Glucose (mg/dL) 200 mg/dL (70-100) H 12/20/17 16:40 Hemoglobin A1c 9.9 % (4.0-5.6) H 12/13/17 14:26 Lactic Acid 1.8 mmol/L (0.5-2.0) 12/13/17 00:20 Calcium 9.1 mg/dL (8.6-10.3) 12/18/17 08:23 Iron 30 ug/dL (50-212) L 12/19/17 07:21 TIBC 280 mcg/dL (250-450) 12/19/17 07:21 % Saturation 11 % (15-55) L 12/19/17 07:21 Unsat Iron Binding 250 ug/dL 12/19/17 07:21 Transferrin 200 mg/dL (203-362) L 12/19/17 07:21 Ferritin 166.6 ng/mL (24-336) 12/19/17 07:21 Total Bilirubin 0.30 mg/dL (0.2-1.0) 12/13/17 00:20 AST 8 U/L (13-39) L 12/13/17 00:20 ALT 9 U/L (7-52) 12/13/17 00:20 Alkaline Phosphatase 130 U/L (34-104) H 12/13/17 00:20 C-Reactive Protein 53.27 mg/L (< 5.00) H 12/16/17 05:14 Total Protein 8.0 g/dL (6.4-8.9) 12/13/17 00:20 Albumin 3.5 g/dL (3.2-5.2) 12/13/17 00:20 Globulin 4.5 g/dL (2-4) H 12/13/17 00:20 Albumin/Globulin Ratio 0.8 (1-3) L 12/13/17 00:20 Vancomycin Trough 18.4 mcg/mL 12/14/17 09:41 Temp Pulse Resp BP Pulse Ox 98.0 F 73 20 166/71 94 12/20/17 15:51 12/20/17 15:51 12/20/17 15:51 12/20/17 15:51 12/20/17 15:[address] nieves and Tanvi BOLAÑOS at bedside today. Incision of plantar aspect with well approximated wound edges proximally and distally. Centrally with elliptical opening 3x2 cm with granulation tissue and bleeding with sponge removal, no foul odor or purulence. Erythema and edema of foot much improved from previous. Patient tolerated vac change well. Assessment :S/P Left foot ulcer, wound vac placement. Plan: - SHANELL CELAYA - Wound vac change at bedside today - Plan DC tomorrow - Heel WB - Keep wound vac in place. Gauze wrap/marcos dressing, post op shoe. Heel WB. Vac change sunday, Dr Walker
[2017-12-20] MEDS: Levofloxacin 500 MG IVPREMIX(* 500 MG/100 ML BAG IVPB SCH (15:18)
--- NOTE | 2017-12-20 15:32 | PN ---
Subjective Date of Service: 12/20/17 Interval History: No complaints. No cough, SOB, CP, N/V, LH Objective Active Medications: Acetaminophen (Tylenol Tab*) 650 mg PO Q4H PRN PRN Reason: FEVER/PAIN Al Hydrox/Mg Hydrox/Simethicone (Maalox Plus*) 30 ml PO Q6H PRN PRN Reason: INDIGESTION Amlodipine Besylate (Norvasc Tab*) 5 mg PO DAILY [facility] Last Admin: 12/20/17 09:09 Dose: 5 mg Dextrose (D50w Syringe 50 Ml*) 12.5 gm IV PUSH .FOR FS < 60 - SS PRN PRN Reason: FS < 60 Docusate Sodium (Colace Cap*) 100 mg PO BID PRN PRN Reason: CONSTIPATION Fluoxetine HCl (Prozac Cap*) 40 mg PO DAILY [facility] Last Admin: 12/20/17 09:09 Dose: 40 mg Levofloxacin/Dextrose (Levaquin 500 Mg Ivpremix(*)) 500 mg in 100 mls @ 100 mls /hr IVPB Q24H [facility] Last Admin: 12/20/17 15:18 Dose: 100 mls/hr Metronidazole/Sodium Chloride (Flagyl 500 Mg Ivpb*) 500 mg in 100 mls @ 100 mls /hr IVPB Q8H [facility] Last Admin: 12/20/17 07:57 Dose: 100 mls/hr Insulin Glargine (Lantus(*)) 50 units SUBCUT Q24H [facility] Last Admin: 12/19/17 22:01 Dose: 50 units Insulin Human Lispro (Humalog*) 10 units SUBCUT AC [facility] Last Admin: 12/20/17 13:14 Dose: 10 units Insulin Human Lispro (Humalog*) 0 units SUBCUT ACHS [facility] PRN Reason: Protocol Last Admin: 12/20/17 13:15 Dose: 6 units Ketoconazole (Nizoral 2% Cream (Nf)) 1 applic TOPICAL BID [facility] PRN Reason: Protocol Last Admin: 12/20/17 09:08 Dose: Not Given Ondansetron HCl (Zofran Inj*) 4 mg IV Q4H PRN PRN Reason: NAUSEA/VOMITING Senna (Senokot Tab*) 1 tab PO BID PRN PRN Reason: CONSTIPATION Vital Signs - 8 hr 12/20/17 12/20/17 12/20/17 07:49 08:00 11:35 Temperature 97.8 F 98.3 F Pulse Rate 71 77 Respiratory 18 18 Rate Blood Pressure 155/83 139/65 (mmHg) O2 Sat by Pulse 95 95 Oximetry Oxygen Devices in Use Now: None Appearance: NAD Eyes: No Scleral Icterus, PERRLA Ears/Nose/Mouth/Throat: NL Teeth, Lips, Gums, Clear Oropharnyx, Mucous Membranes Moist Neck: NL Appearance and Movements; NL JVP, Trachea Midline Respiratory: Symmetrical Chest Expansion and Respiratory Effort, Clear to Auscultation Cardiovascular: NL Sounds; No Murmurs; No JVD, RRR Abdominal: NL Sounds; No Tenderness; No Distention Extremities: No Edema, - - left foot in wound vac Neurological: Alert and Oriented x 3 Result Diagrams: 12/19/17 07:21 12/18/17 08:23 Microbiology and Other Data: Microbiology 12/13/17 04:05 Skin and Soft Tissue MRSA/MSSA (PCR - Final Foot Left Mrsa Negative S.aureus Negative Gram Stain - Final Diagnostic Imaging: Patient Name: BRIANNA GILLIS Medical Record#: [id number] Ordering Physician: Dave Hernandes MD Acct.#: [id number] : 1960 Age: 57 Sex: M Location: SURGICAL STAY UNIT Exam Date: 12/13/171041 ADM Status: ADM IN Order Information: MRI LOWER EXTREMITY LEFT W/O Accession Number: [id number] CPT: 18698 INDICATION: Plantar mid foot ulcer evaluate for osteomyelitis. COMPARISON: Comparison is made with a prior x-ray study of the left foot from December 13, 2017. TECHNIQUE: Axial, sagittal and coronal T1 and T2-weighted images of the left foot were obtained. FINDINGS: There is focal soft tissue swelling and a soft tissue defect present along the plantar medial aspect of the foot at the level of the first tarsometatarsal joint. No bone marrow edema or adjacent erosive changes are noted. No focal fluid collections are seen. There is moderate diffuse osteoarthritic change in the blood foot throughout the intertarsal and tarsometatarsal joints suggesting the possibility of a Charcot joint. IMPRESSION: 1. SOFT TISSUE SWELLING AND SOFT TISSUE ULCER, NO EVIDENCE FOR OSTEOMYELITIS. 2. FINDINGS SUGGESTIVE OF A CHARCOT JOINT. <Electronically signed by Syed Alfaro MD in [place]> 12/13/17 1311 Dictated By: Syed Alfaro MD Dictated Date/Time: 12/13/17 1311 Transcribed Date/Time: 12/13/17 1304 Copy to: Assess/Plan/Problems-Billing Mr Gillis is a 57 year old male with history of uncontrolled DM, neuropathy and previous osteomyelitis of the R foot who presents with non-healing Left foot wound s/p OR for debridement and wound vac placement 12/17 then change 12/20 at bedside - Patient Problems (1) Non-healing ulcer of left foot Comment: Wound vac changed at bedside 12/20 levaquin and flagyl will continue same abx x 3 weeks PO after discharge (d/w ID) (2) Uncontrolled diabetes mellitus Current Visit: Yes Comment: Lantus increased from 50 to 54U 12/20 High dose lispro SS 1:10 CC lispro scale (3) HTN (hypertension) Comment: amlodipine (4) DVT prophylaxis Comment: SQ heparin Status and Disposition: Remain inpatient for continued abx tx and wound vac
[2017-12-20] MEDS: Insulin GLARGINE(*) 1 UNITS UNIT SUBCUT SCH (21:54)
[2017-12-21] MEDS: Ketoconazole 2 % CREAM (NF) 30 GM TUBE TOPICAL SCH ×2 (08:44→21:16)
[2017-12-21] MEDS: amLODIPine TAB* 5 MG PO SCH (08:47)
[2017-12-21] MEDS: FLUoxetine CAP* 20 MG PO SCH (08:47)
[2017-12-21] MEDS: Insulin LISPRO* 1 UNITS UNIT SUBCUT SCH ×7 (08:47→21:15)
[2017-12-21] MEDS: metroNIDAZOLE IV 500 MG/100ML* 500 MG/100 ML BAG IVPB SCH ×2 (08:47→18:14)
--- NOTE | 2017-12-21 10:45 | PN ---
Progress Note - Progress Note Date of Service: 12/21/17 SOAP: Subjective: 57 y/o male s/p left plantar ulcer debridement, vac placement 12/[address] Horne. Patient would like to leave, threatening to leave AMA, refused to work with PT prior, was haley lift, pain controlled, no questions re: surgery. refuses to be non-weight bearing, states will put weight on foot to walk, transfer, do stairs. Educated on risks of weight bearing- vac failure, poor healing, repeat surgery. Patient voiced understanding. Objective: General- WEll appearing, NAD, resting in bed comfortably, angry that unable to leave today MSK- wound VAC in place L plantar foot, good suction full ROM toes, decreased sensation all toes, however pt's baseline. Vital Signs Temp 98.8 F 12/21/17 07:18 Pulse 69 12/21/17 07:18 Resp 17 12/21/17 07:18 BP 140/69 12/21/17 07:18 Pulse Ox 97 12/21/17 07:18 Intake & Output 12/20/17 12/21/17 12/21/17 18:59 06:59 18:59 Intake Total 2410 1370 360 Output Total 1025 1575 200 Balance 1385 -205 160 Intake: IV Fluids 735 150 ABX - FLAGYL 100 NS (0.9%) 735 50 IVPB 325 ABX - FLAGYL 325 Medicated IV 110 Levaquin 110 Oral 1240 1220 360 Output: Urine 1025 1575 200 Other: # Bowel Movements 0 0 Assessment S/P Left foot ulcer debridement 12/17, wound vac placement 12/20, Plan: - NWB LLE- may pivot/ transfer with partial weight bearing on heel - Wound vac change at bedside 12/21 - Plan DC once able to be NWB and ambulatory (may WB to pivot, transfer) and VAC clearance through [facility]. - Heel WB - Keep wound vac in place. Gauze wrap/marcos dressing, post op shoe. Heel WB. Vac change sunday, FU Dr Horne - ABX- OK with PO ABX, no PICC needed. - Patient does not want rehab placement- will work with PT this afternoon and determine safety for home vs placement. - PT/ OT= patient encouraged to work with PT, states he will attempt. post-op shoe with raised heel to distribute weight to heel with transfers. Acetaminophen (Tylenol Tab*) 650 mg PO Q4H PRN PRN Reason: FEVER/PAIN Al Hydrox/Mg Hydrox/Simethicone (Maalox Plus*) 30 ml PO Q6H PRN PRN Reason: INDIGESTION Amlodipine Besylate (Norvasc Tab*) 5 mg PO DAILY [facility] BEDS AT [facility] Last Admin: 12/21/17 08:47 Dose: 5 mg Dextrose (D50w Syringe 50 Ml*) 12.5 gm IV PUSH .FOR FS < 60 - SS PRN PRN Reason: FS < 60 Docusate Sodium (Colace Cap*) 100 mg PO BID PRN PRN Reason: CONSTIPATION Fluoxetine HCl (Prozac Cap*) 40 mg PO DAILY [facility] 234 BEDS AT THE [facility] Last Admin: 12/21/17 08:47 Dose: 40 mg Levofloxacin/Dextrose (Levaquin 500 Mg Ivpremix(*)) 500 mg in 100 mls @ 100 mls /hr IVPB Q24H [facility] 234 BEDS AT THE [facility] Last Admin: 12/20/17 15:18 Dose: 100 mls/hr Metronidazole/Sodium Chloride (Flagyl 500 Mg Ivpb*) 500 mg in 100 mls @ 100 mls /hr IVPB Q8H [facility] 234 BEDS AT THE [facility] Last Admin: 12/21/17 08:47 Dose: 100 mls/hr Insulin Glargine (Lantus(*)) 54 units SUBCUT Q24H [facility] 234 BEDS AT [facility] Last Admin: 12/20/17 21:54 Dose: 54 units Insulin Human Lispro (Humalog*) 10 units SUBCUT AC [facility] 234 BEDS AT [facility] Last Admin: 12/21/17 08:47 Dose: 10 units Insulin Human Lispro (Humalog*) 0 units SUBCUT ACHS [facility] 234 BEDS AT [facility] PRN Reason: Protocol Last Admin: 12/21/17 08:48 Dose: 3 units Ketoconazole (Nizoral 2% Cream (Nf)) 1 applic TOPICAL BID [facility] 234 BEDS AT [facility] PRN Reason: Protocol Last Admin: 12/21/17 08:44 Dose: Not Given Ondansetron HCl (Zofran Inj*) 4 mg IV Q4H PRN PRN Reason: NAUSEA/VOMITING Senna (Senokot Tab*) 1 tab PO BID PRN PRN Reason: CONSTIPATION
[2017-12-21] MEDS: Levofloxacin 500 MG IVPREMIX(* 500 MG/100 ML BAG IVPB SCH (15:40)
--- NOTE | 2017-12-21 16:50 | PN ---
Subjective Date of Service: 12/21/17 Interval History: No complaints. Denies SOB/CP, pain Last BM 4 days prior but he notes this is not abnormal and does not want stool softener Objective Active Medications: Acetaminophen (Tylenol Tab*) 650 mg PO Q4H PRN PRN Reason: FEVER/PAIN Al Hydrox/Mg Hydrox/Simethicone (Maalox Plus*) 30 ml PO Q6H PRN PRN Reason: INDIGESTION Amlodipine Besylate (Norvasc Tab*) 5 mg PO DAILY [facility] Last Admin: 12/21/17 08:47 Dose: 5 mg Dextrose (D50w Syringe 50 Ml*) 12.5 gm IV PUSH .FOR FS < 60 - SS PRN PRN Reason: FS < 60 Docusate Sodium (Colace Cap*) 100 mg PO BID PRN PRN Reason: CONSTIPATION Fluoxetine HCl (Prozac Cap*) 40 mg PO DAILY [facility] Last Admin: 12/21/17 08:47 Dose: 40 mg Levofloxacin/Dextrose (Levaquin 500 Mg Ivpremix(*)) 500 mg in 100 mls @ 100 mls /hr IVPB Q24H [facility] Last Admin: 12/21/17 15:40 Dose: 100 mls/hr Metronidazole/Sodium Chloride (Flagyl 500 Mg Ivpb*) 500 mg in 100 mls @ 100 mls /hr IVPB Q8H [facility] Last Admin: 12/21/17 08:47 Dose: 100 mls/hr Insulin Glargine (Lantus(*)) 54 units SUBCUT Q24H [facility] Last Admin: 12/20/17 21:54 Dose: 54 units Insulin Human Lispro (Humalog*) 10 units SUBCUT AC [facility] Last Admin: 12/21/17 13:15 Dose: 10 units Insulin Human Lispro (Humalog*) 0 units SUBCUT ACHS [facility] PRN Reason: Protocol Last Admin: 12/21/17 13:16 Dose: 3 units Ketoconazole (Nizoral 2% Cream (Nf)) 1 applic TOPICAL BID [facility] PRN Reason: Protocol Last Admin: 12/21/17 08:44 Dose: Not Given Ondansetron HCl (Zofran Inj*) 4 mg IV Q4H PRN PRN Reason: NAUSEA/VOMITING Senna (Senokot Tab*) 1 tab PO BID PRN PRN Reason: CONSTIPATION Vital Signs - 8 hr 12/21/17 11:15 Blood Pressure 145/82 (mmHg) Oxygen Devices in Use Now: None Appearance: obese, NAD Eyes: No Scleral Icterus Ears/Nose/Mouth/Throat: NL Teeth, Lips, Gums, Clear Oropharnyx Neck: NL Appearance and Movements; NL JVP, Trachea Midline Respiratory: Symmetrical Chest Expansion and Respiratory Effort, Clear to Auscultation Cardiovascular: RRR Abdominal: NL Sounds; No Tenderness; No Distention, No Hepatosplenomegaly Lymphatic: No Cervical Adenopathy Extremities: - - left foot unwrapped, wound vac draining dark bloodly liquid Neurological: Alert and Oriented x 3 Result Diagrams: 12/19/17 07:21 12/18/17 08:23 Microbiology and Other Data: Microbiology 12/13/17 04:05 Skin and Soft Tissue MRSA/MSSA (PCR - Final Foot Left Mrsa Negative S.aureus Negative Gram Stain - Final Diagnostic Imaging: Patient Name: BRIANNA GILLIS Medical Record#: [id number] Ordering Physician: Dave Hernandes MD Acct.#: [id number] : 1960 Age: 57 Sex: M Location: SURGICAL STAY UNIT Exam Date: 12/13/171041 ADM Status: ADM IN Order Information: MRI LOWER EXTREMITY LEFT W/O Accession Number: [id number] CPT: 94352 INDICATION: Plantar mid foot ulcer evaluate for osteomyelitis. COMPARISON: Comparison is made with a prior x-ray study of the left foot from December 13, 2017. TECHNIQUE: Axial, sagittal and coronal T1 and T2-weighted images of the left foot were obtained. FINDINGS: There is focal soft tissue swelling and a soft tissue defect present along the plantar medial aspect of the foot at the level of the first tarsometatarsal joint. No bone marrow edema or adjacent erosive changes are noted. No focal fluid collections are seen. There is moderate diffuse osteoarthritic change in the blood foot throughout the intertarsal and tarsometatarsal joints suggesting the possibility of a Charcot joint. IMPRESSION: 1. SOFT TISSUE SWELLING AND SOFT TISSUE ULCER, NO EVIDENCE FOR OSTEOMYELITIS. 2. FINDINGS SUGGESTIVE OF A CHARCOT JOINT. <Electronically signed by Syed Alfaro MD in [place]> 12/13/17 1311 Dictated By: Syed Alfaro MD Dictated Date/Time: 12/13/17 1311 Transcribed Date/Time: 12/13/17 1304 Copy to: Assess/Plan/Problems-Billing Mr Gillis is a 57 year old male with history of uncontrolled DM, neuropathy and previous osteomyelitis of the R foot who presents with non-healing Left foot wound s/p OR for debridement and wound vac placement 12/17 then change 12/20 at bedside - Patient Problems (1) Non-healing ulcer of left foot Comment: Wound vac changed at bedside 12/20 levaquin and flagyl will continue same abx x 3 weeks PO after discharge (d/w ID) See ortho note - NWB LLE, can pivot/transfer with partial weight bearing on heel DC planning once able to be NWB and ambulatory Post op shoe pending delivery to work with PT (2) Uncontrolled diabetes mellitus Current Visit: Yes Comment: Lantus increased from 50 to 54U 12/20 - can consider increasing tomorrow again High dose lispro SS 1:10 CC lispro scale (3) HTN (hypertension) Comment: amlodipine (4) DVT prophylaxis Comment: SQ heparin Status and Disposition: Remain inpatient for continued abx tx and wound vac and PT eval/tx
[2017-12-21] MEDS: Insulin GLARGINE(*) 1 UNITS UNIT SUBCUT SCH (21:15)
[2017-12-22] MEDS: metroNIDAZOLE IV 500 MG/100ML* 500 MG/100 ML BAG IVPB SCH ×4 (01:08→17:53)
[2017-12-22] MEDS: Ketoconazole 2 % CREAM (NF) 30 GM TUBE TOPICAL SCH ×2 (09:29→21:55)
[2017-12-22] MEDS: Insulin LISPRO* 1 UNITS UNIT SUBCUT SCH ×7 (09:33→21:54)
[2017-12-22] MEDS: amLODIPine TAB* 5 MG PO SCH (09:34)
[2017-12-22] MEDS: FLUoxetine CAP* 20 MG PO SCH (09:34)
[2017-12-22] MEDS: Ferrous Sulfate TAB* 325 MG PO SCH (09:34)
--- NOTE | 2017-12-22 10:20 | PN ---
Progress Note - Progress Note Date of Service: 12/22/17 SOAP: Subjective: [Pt. denies pain. No fevers, chills, SOB, dizzineaa] Objective: [A and O x 3, NAD L foot wound vac in place, good suction. Exposed toes lack sensation - baseline. Vital Signs: Temp Pulse Resp BP Pulse Ox 98.1 F 73 18 146/77 95 12/22/17 07:37 12/22/17 07:37 12/22/17 07:37 12/22/17 07:37 12/22/17 07:37 Laboratory Results - last 24 hr 12/21/17 12/21/17 12/21/17 12:13 17:07 21:05 POC Glucose (mg/dL) 157 H 173 H 200 H ] Assessment: [s/p L foot ulcer debridement 12/17/17, wound vac placement 12/20/17 Dr. Walker] Plan: [NWB LLE - may pivot/transfer with partial WB on heel Vac change on Sunday12/24/17. F/U with Dr. Walker on . po abx PT/OT ]
--- NOTE | 2017-12-22 11:16 | PN ---
Subjective Date of Service: 12/22/17 Interval History: Pt stated he was constipated, but refused to take stool softeners and laxatives. No new events at night Objective Active Medications: Acetaminophen (Tylenol Tab*) 650 mg PO Q4H PRN PRN Reason: FEVER/PAIN Al Hydrox/Mg Hydrox/Simethicone (Maalox Plus*) 30 ml PO Q6H PRN PRN Reason: INDIGESTION Amlodipine Besylate (Norvasc Tab*) 5 mg PO DAILY [facility] Last Admin: 12/22/17 09:34 Dose: 5 mg Dextrose (D50w Syringe 50 Ml*) 12.5 gm IV PUSH .FOR FS < 60 - SS PRN PRN Reason: FS < 60 Docusate Sodium (Colace Cap*) 100 mg PO BID PRN PRN Reason: CONSTIPATION Ferrous Sulfate (Ferrous Sulfate Tab*) 325 mg PO DAILY [facility] Last Admin: 12/22/17 09:34 Dose: 325 mg Fluoxetine HCl (Prozac Cap*) 40 mg PO DAILY [facility] Last Admin: 12/22/17 09:34 Dose: 40 mg Levofloxacin/Dextrose (Levaquin 500 Mg Ivpremix(*)) 500 mg in 100 mls @ 100 mls /hr IVPB Q24H [facility] Last Admin: 12/21/17 15:40 Dose: 100 mls/hr Metronidazole/Sodium Chloride (Flagyl 500 Mg Ivpb*) 500 mg in 100 mls @ 100 mls /hr IVPB 0200,1000,1800 [facility] Last Admin: 12/22/17 10:11 Dose: 100 mls/hr Insulin Glargine (Lantus(*)) 58 units SUBCUT Q24H [facility] Insulin Human Lispro (Humalog*) 10 units SUBCUT AC [facility] Last Admin: 12/22/17 09:33 Dose: 10 units Insulin Human Lispro (Humalog*) 0 units SUBCUT ACHS [facility] PRN Reason: Protocol Last Admin: 12/22/17 09:34 Dose: 2 units Ketoconazole (Nizoral 2% Cream (Nf)) 1 applic TOPICAL BID [facility] PRN Reason: Protocol Last Admin: 12/22/17 09:29 Dose: Not Given Ondansetron HCl (Zofran Inj*) 4 mg IV Q4H PRN PRN Reason: NAUSEA/VOMITING Senna (Senokot Tab*) 1 tab PO BID PRN PRN Reason: CONSTIPATION Vital Signs - 8 hr 12/22/17 12/22/17 12/22/17 03:34 07:37 08:00 Temperature 97.9 F 98.1 F Pulse Rate 72 73 Respiratory 20 18 18 Rate Blood Pressure 140/73 146/77 (mmHg) O2 Sat by Pulse 94 95 Oximetry Oxygen Devices in Use Now: None Appearance: 57 yo M in nAD, AAOx3 Eyes: No Scleral Icterus, PERRLA Ears/Nose/Mouth/Throat: NL Teeth, Lips, Gums, Mucous Membranes Moist Neck: NL Appearance and Movements; NL JVP, Trachea Midline Respiratory: Symmetrical Chest Expansion and Respiratory Effort, Clear to Auscultation Cardiovascular: NL Sounds; No Murmurs; No JVD, RRR Abdominal: NL Sounds; No Tenderness; No Distention, No Hepatosplenomegaly Lymphatic: No Cervical Adenopathy Extremities: No Clubbing, Cyanosis, - - trace pedal edema left Skin: - - left foot -bottom with vac dressing applied, R leg s/p forefoot amputation-stump healed Neurological: Alert and Oriented x 3, NL Muscle Strength and Tone Result Diagrams: 12/19/17 07:21 12/18/17 08:23 Microbiology and Other Data: Microbiology 12/13/17 04:05 Skin and Soft Tissue MRSA/MSSA (PCR - Final Foot Left Mrsa Negative S.aureus Negative Gram Stain - Final Assess/Plan/Problems-Billing Mr Maldonado is a 57 year old male with history of uncontrolled DM, neuropathy and previous osteomyelitis of the R foot who presents with non-healing Left foot wound s/p OR for debridement and wound vac placement 12/17 then change 12/20 at bedside - Patient Problems (1) Non-healing ulcer of left foot Comment: Wound vac changed at bedside 12/20 Cont levaquin and flagyl will continue same abx x 3 weeks PO after discharge See ortho note - NWB LLE, can pivot/transfer with partial weight bearing on heel DC planning once able to be NWB and ambulatory Post op shoe to work with PT (2) Uncontrolled diabetes mellitus Comment: Lantus increased tonight High dose lispro SS 1:10 CC lispro scale (3) HTN (hypertension) Comment: amlodipine (4) DVT prophylaxis Comment: SQ heparin Status and Disposition: Remain inpatient for continued abx tx and wound vac and PT eval/tx
[2017-12-22] MEDS: Heparin VIAL(*) 5000 UNITS/ML VIAL (FIVE THOUSAND) SUBCUT SCH ×2 (14:59→21:55)
[2017-12-22] MEDS: Levofloxacin 500 MG IVPREMIX(* 500 MG/100 ML BAG IVPB SCH (15:45)
[2017-12-22] MEDS: Insulin GLARGINE(*) 1 UNITS UNIT SUBCUT SCH (21:54)
[2017-12-23] MEDS: metroNIDAZOLE IV 500 MG/100ML* 500 MG/100 ML BAG IVPB SCH ×2 (02:10→10:23)
[2017-12-23] MEDS: Heparin VIAL(*) 5000 UNITS/ML VIAL (FIVE THOUSAND) SUBCUT SCH ×3 (05:22→21:59)
[2017-12-23 06:05] LABS: ABS Basophils 0.1 10^3/ul (0-0.2); ABS Eosinophils 0.4 10^3/ul (0-0.6); ABS Lymphocytes 1.7 10^3/ul (1.0-4.8); ABS Monocytes 1.2 10^3/ul (0-0.8); ABS Neutrophils 8.6 10^3/ul (1.5-7.7); ABS Nucleated RBC 0 10^3/ul; Eosinophil % 3.3 % (0-6); Hematocrit 35 % (42-52); Hemoglobin 11.2 g/dl (14.0-18.0); Mean Corpuscular HGB Conc 32 g/dl (31-36); Mean Corpuscular Hemoglobin 23 pg (27-31); Mean Corpuscular Volume 72 fL (80-94); Mean Platelet Volume 6.7 um3 (7.4-10.4); Nucleated Red Blood Cells % 0.1; Platelet Count 423 10^3/ul (150-450); Red Blood Count 4.84 10^6/ul (4.0-5.4); Red Cell Distribution Width 19 % (10.5-15)
[2017-12-23] MEDS: amLODIPine TAB* 5 MG PO SCH (09:15)
[2017-12-23] MEDS: FLUoxetine CAP* 20 MG PO SCH (09:15)
[2017-12-23] MEDS: Ferrous Sulfate TAB* 325 MG PO SCH (09:15)
[2017-12-23] MEDS: Ketoconazole 2 % CREAM (NF) 30 GM TUBE TOPICAL SCH ×2 (09:15→21:57)
[2017-12-23] MEDS: Insulin LISPRO* 1 UNITS UNIT SUBCUT SCH ×7 (09:33→21:59)
--- NOTE | 2017-12-23 09:55 | PN ---
Subjective Date of Service: 12/23/17 Interval History: pt feels better. Walked to bathroom yesterday. Had a BM. Objective Active Medications: Acetaminophen (Tylenol Tab*) 650 mg PO Q4H PRN PRN Reason: FEVER/PAIN Al Hydrox/Mg Hydrox/Simethicone (Maalox Plus*) 30 ml PO Q6H PRN PRN Reason: INDIGESTION Amlodipine Besylate (Norvasc Tab*) 5 mg PO DAILY [facility] Last Admin: 12/23/17 09:15 Dose: 5 mg Dextrose (D50w Syringe 50 Ml*) 12.5 gm IV PUSH .FOR FS < 60 - SS PRN PRN Reason: FS < 60 Docusate Sodium (Colace Cap*) 100 mg PO BID PRN PRN Reason: CONSTIPATION Ferrous Sulfate (Ferrous Sulfate Tab*) 325 mg PO DAILY [facility] Last Admin: 12/23/17 09:15 Dose: 325 mg Fluoxetine HCl (Prozac Cap*) 40 mg PO DAILY [facility] Last Admin: 12/23/17 09:15 Dose: 40 mg Heparin Sodium (Porcine) (Heparin Vial(*)) 5,000 units SUBCUT Q8HR [facility] Last Admin: 12/23/17 05:22 Dose: 5,000 units Levofloxacin/Dextrose (Levaquin 500 Mg Ivpremix(*)) 500 mg in 100 mls @ 100 mls /hr IVPB Q24H [facility] Last Admin: 12/22/17 15:45 Dose: 100 mls/hr Metronidazole/Sodium Chloride (Flagyl 500 Mg Ivpb*) 500 mg in 100 mls @ 100 mls /hr IVPB 0200,1000,1800 [facility] Last Admin: 12/23/17 02:10 Dose: 100 mls/hr Insulin Glargine (Lantus(*)) 58 units SUBCUT Q24H [facility] Last Admin: 12/22/17 21:54 Dose: 58 units Insulin Human Lispro (Humalog*) 10 units SUBCUT AC [facility] Last Admin: 12/23/17 09:33 Dose: 10 units Insulin Human Lispro (Humalog*) 0 units SUBCUT ACHS [facility] PRN Reason: Protocol Last Admin: 12/23/17 09:33 Dose: 2 units Ketoconazole (Nizoral 2% Cream (Nf)) 1 applic TOPICAL BID [facility] PRN Reason: Protocol Last Admin: 12/23/17 09:15 Dose: Not Given Ondansetron HCl (Zofran Inj*) 4 mg IV Q4H PRN PRN Reason: NAUSEA/VOMITING Senna (Senokot Tab*) 1 tab PO BID PRN PRN Reason: CONSTIPATION Vital Signs - 8 hr 12/23/17 12/23/17 03:39 07:14 Temperature 97.5 F 97.2 F Pulse Rate 67 68 Respiratory 16 20 Rate Blood Pressure 145/69 135/71 (mmHg) O2 Sat by Pulse 97 97 Oximetry Oxygen Devices in Use Now: None Appearance: 57 yo M in nAD, aAOx3 Eyes: No Scleral Icterus, PERRLA Ears/Nose/Mouth/Throat: NL Teeth, Lips, Gums, Mucous Membranes Moist Neck: NL Appearance and Movements; NL JVP Respiratory: Symmetrical Chest Expansion and Respiratory Effort, Clear to Auscultation Cardiovascular: NL Sounds; No Murmurs; No JVD, RRR Abdominal: NL Sounds; No Tenderness; No Distention, No Hepatosplenomegaly Lymphatic: No Cervical Adenopathy Extremities: No Clubbing, Cyanosis, - - trace left pedal edema. left foot with wound vac in place. R leg s/p r forefoot amputation Skin: No Nodules or Sclerosis, - - left foot wound covered by wound vac Neurological: Alert and Oriented x 3, NL Muscle Strength and Tone Result Diagrams: 12/23/17 05:47 12/23/17 05:47 Microbiology and Other Data: Microbiology 12/13/17 04:05 Skin and Soft Tissue MRSA/MSSA (PCR - Final Foot Left Mrsa Negative S.aureus Negative Gram Stain - Final Diagnostic Imaging: Patient Name: BRIANNA GILLIS Medical Record#: [id number] Ordering Physician: Dave Hernandes MD Acct.#: [id number] : 1960 Age: 57 Sex: M Location: SURGICAL STAY UNIT Exam Date: 12/13/171041 ADM Status: ADM IN Order Information: MRI LOWER EXTREMITY LEFT W/O Accession Number: [id number] CPT: 79642 INDICATION: Plantar mid foot ulcer evaluate for osteomyelitis. COMPARISON: Comparison is made with a prior x-ray study of the left foot from December 13, 2017. TECHNIQUE: Axial, sagittal and coronal T1 and T2-weighted images of the left foot were obtained. FINDINGS: There is focal soft tissue swelling and a soft tissue defect present along the plantar medial aspect of the foot at the level of the first tarsometatarsal joint. No bone marrow edema or adjacent erosive changes are noted. No focal fluid collections are seen. There is moderate diffuse osteoarthritic change in the blood foot throughout the intertarsal and tarsometatarsal joints suggesting the possibility of a Charcot joint. IMPRESSION: 1. SOFT TISSUE SWELLING AND SOFT TISSUE ULCER, NO EVIDENCE FOR OSTEOMYELITIS. 2. FINDINGS SUGGESTIVE OF A CHARCOT JOINT. <Electronically signed by Syed Alfaro MD in [place]> 12/13/17 1311 Dictated By: Syed Alfaro MD Dictated Date/Time: 12/13/17 1311 Transcribed Date/Time: 12/13/17 1304 Copy to: Assess/Plan/Problems-Billing Mr Gillis is a 57 year old male with history of uncontrolled DM, neuropathy and previous osteomyelitis of the R foot who presents with non-healing Left foot wound s/p OR for debridement and wound vac placement 12/17 then change 12/20 at bedside - Patient Problems (1) Non-healing ulcer of left foot Comment: Wound vac changed at bedside 12/20, 12/23/17 Cont levaquin and flagyl will continue same abx x 3 weeks PO after discharge See ortho note - NWB LLE, can pivot/transfer with partial weight bearing on heel DC planning once able to be NWB and ambulatory Post op shoe to work with PT (2) Uncontrolled diabetes mellitus Comment: cont Lantus High dose lispro SS 1:10 CC lispro scale (3) HTN (hypertension) Comment: Controlled amlodipine (4) DVT prophylaxis Comment: SQ heparin Status and Disposition: Remain inpatient for continued abx tx and wound vac and PT eval/tx
--- NOTE | 2017-12-23 10:35 | PN ---
Progress Note - Progress Note Date of Service: 12/23/17 SOAP: Subjective: [Pt reports doing a bit better. Has been OOB to BR. Denies pain. Wound vac stopped working last night per nursing.] Objective: [A and O x 3, NAD Wound vac changed by nursing staff, good suction. Vital Signs: Temp Pulse Resp BP Pulse Ox 97.2 F 68 20 135/71 97 12/23/17 07:14 12/23/17 07:14 12/23/17 08:00 12/23/17 07:14 12/23/17 07:14 Laboratory Results - last 24 hr 12/22/17 12/22/17 12/22/17 08:09 11:44 17:02 WBC RBC Hgb Hct MCV MCH MCHC RDW Plt Count MPV Neut % (Auto) Lymph % (Auto) [place] % (Auto) Eos % (Auto) Baso % (Auto) Absolute Neuts (auto) Absolute Lymphs (auto) Absolute Monos (auto) Absolute Eos (auto) Absolute Basos (auto) Absolute Nucleated RBC Nucleated RBC % Sodium Potassium Chloride Carbon Dioxide Anion Gap BUN Creatinine Est GFR ( Amer) Est GFR (Non-Af Amer) BUN/Creatinine Ratio Glucose POC Glucose (mg/dL) 147 H 189 H 160 H Calcium 12/22/17 12/23/17 12/23/17 21:36 05:47 05:47 WBC 12.0 H RBC 4.84 Hgb 11.2 L Hct 35 L MCV 72 L MCH 23 L MCHC 32 RDW 19 H Plt Count 423 MPV 6.7 L Neut % (Auto) 72.0 Lymph % (Auto) 14.0 L [place] % (Auto) 9.9 H Eos % (Auto) 3.3 Baso % (Auto) 0.8 Absolute Neuts (auto) 8.6 H Absolute Lymphs (auto) 1.7 Absolute Monos (auto) 1.2 H Absolute Eos (auto) 0.4 Absolute Basos (auto) 0.1 Absolute Nucleated RBC 0 Nucleated RBC % 0.1 Sodium 133 L Potassium 4.2 Chloride 100 L Carbon Dioxide 27 Anion Gap 6 BUN 20 Creatinine 1.03 Est GFR ( Amer) 96.4 Est GFR (Non-Af Amer) 75.0 BUN/Creatinine Ratio 19.4 Glucose 116 H POC Glucose (mg/dL) 195 H Calcium 9.1 12/23/17 09:15 WBC RBC Hgb Hct MCV MCH MCHC RDW Plt Count MPV Neut % (Auto) Lymph % (Auto) [place] % (Auto) Eos % (Auto) Baso % (Auto) Absolute Neuts (auto) Absolute Lymphs (auto) Absolute Monos (auto) Absolute Eos (auto) Absolute Basos (auto) Absolute Nucleated RBC Nucleated RBC % Sodium Potassium Chloride Carbon Dioxide Anion Gap BUN Creatinine Est GFR ( Amer) Est GFR (Non-Af Amer) BUN/Creatinine Ratio Glucose POC Glucose (mg/dL) 141 H Calcium ] Assessment: [s/p L foot ulcer debridement 12/17/17, wound vac .] Plan: []NWB LL - january pivot/transfer with partial WB on heel Vac was changed today 12/23/17 F/U with Dr. Walker on po abx PT/OT
[2017-12-23] MEDS: Levofloxacin 500 MG IVPREMIX(* 500 MG/100 ML BAG IVPB SCH ×2 (15:22→15:48)
[2017-12-23] MEDS: Levofloxacin TAB* 500 MG PO SCH (16:24)
[2017-12-23] MEDS: Insulin GLARGINE(*) 1 UNITS UNIT SUBCUT SCH (21:59)
[2017-12-23] MEDS: metroNIDAZOLE TAB* 250 MG PO SCH (22:00)
[2017-12-24] MEDS: Heparin VIAL(*) 5000 UNITS/ML VIAL (FIVE THOUSAND) SUBCUT SCH ×3 (05:34→21:42)
[2017-12-24] MEDS: Insulin LISPRO* 1 UNITS UNIT SUBCUT SCH ×7 (08:55→22:01)
[2017-12-24] MEDS: Ferrous Sulfate TAB* 325 MG PO SCH (08:55)
[2017-12-24] MEDS: FLUoxetine CAP* 20 MG PO SCH (08:55)
[2017-12-24] MEDS: metroNIDAZOLE TAB* 250 MG PO SCH ×3 (08:55→21:41)
[2017-12-24] MEDS: amLODIPine TAB* 5 MG PO SCH (08:55)
[2017-12-24] MEDS: CMC:Ketoconazole 2 % CREAM (NF) 30 GM TUBE TOPICAL SCH ×2 (08:57→21:42)
--- NOTE | 2017-12-24 11:20 | PN ---
Progress Note - Progress Note Date of Service: 12/24/17 SOAP: Subjective: 57 y/o male with L foot ulcer s/p debridement, wound vac placement 12/17/2017. Patient unwilling to non-weight bear on LLE due to poor amublation with amp on R LE. Does not was rehabilitation due to h/o panic attacks at prior rehab admission, would like to go "home" to friends house. Has voiced he will sign out AMA if unable to go home. Objective: General - Well appearing, resting in bed comfortably, AO MSK - wound vac in place, skin intact, no drainage, odor noted. U splint placed without difficulty over vac. Vital Signs Temp 97.8 F 12/24/17 07:20 Pulse 74 12/24/17 07:20 Resp 18 12/24/17 07:52 BP 147/77 12/24/17 07:20 Pulse Ox 97 12/24/17 07:20 Intake & Output 12/23/17 12/24/17 12/24/17 18:59 06:59 18:59 Intake Total 900 1100 Output Total 1100 1974 Balance -200 -875 -300 Intake: Oral 900 1100 Output: Urine 1100 1974 Other: # Bowel Movements 1 1 Estimated Stool Amount Large Medium Assessment: 57 y/o male with L foot ulcer s/p debridement, wound vac placement 12/17/2017. Plan: - Follow up with DR. Walker on for wound vac change - Home today with ABX, wound vac/ VNS services - Partial weight bearing with post-op shoe, splint on L foot - Acetaminophen (Tylenol Tab*) 650 mg PO Q4H PRN PRN Reason: FEVER/PAIN Al Hydrox/Mg Hydrox/Simethicone (Maalox Plus*) 30 ml PO Q6H PRN PRN Reason: INDIGESTION Amlodipine Besylate (Norvasc Tab*) 5 mg PO DAILY [facility] Last Admin: 12/24/17 08:55 Dose: 5 mg Dextrose (D50w Syringe 50 Ml*) 12.5 gm IV PUSH .FOR FS < 60 - SS PRN PRN Reason: FS < 60 Docusate Sodium (Colace Cap*) 100 mg PO BID PRN PRN Reason: CONSTIPATION Ferrous Sulfate (Ferrous Sulfate Tab*) 325 mg PO DAILY [facility] Last Admin: 12/24/17 08:55 Dose: 325 mg Fluoxetine HCl (Prozac Cap*) 40 mg PO DAILY [facility] Last Admin: 12/24/17 08:55 Dose: 40 mg Heparin Sodium (Porcine) (Heparin Vial(*)) 5,000 units SUBCUT Q8HR [facility] Last Admin: 12/24/17 05:34 Dose: 5,000 units Insulin Glargine (Lantus(*)) 58 units SUBCUT Q24H [facility] Last Admin: 12/23/17 21:59 Dose: 58 units Insulin Human Lispro (Humalog*) 10 units SUBCUT AC [facility] Last Admin: 12/24/17 08:55 Dose: 10 units Insulin Human Lispro (Humalog*) 0 units SUBCUT ACHS [facility] PRN Reason: Protocol Last Admin: 12/24/17 08:56 Dose: 2 units Ketoconazole (Nizoral 2% Cream (Nf)) 1 applic TOPICAL BID [facility] PRN Reason: Protocol Last Admin: 12/24/17 08:57 Dose: Not Given Levofloxacin (Levaquin Tab*) 500 mg PO Q24H [facility] Last Admin: 12/23/17 16:24 Dose: 500 mg Metronidazole (Flagyl Tab*) 500 mg PO TID [facility] Last Admin: 12/24/17 08:55 Dose: 500 mg Ondansetron HCl (Zofran Inj*) 4 mg IV Q4H PRN PRN Reason: NAUSEA/VOMITING Senna (Senokot Tab*) 1 tab PO BID PRN PRN Reason: CONSTIPATION
--- NOTE | 2017-12-24 11:47 | PN ---
Progress Note - Progress Note Date of Service: 12/24/17 SOAP: Subjective: CC: left foot infection HPI: 57 year old man with left plantar foot ulcer. Had I&D and vac placement. No fever, rash, or diarrhea. IV issues yesterday so changed to PO antibiotics. Objective: Vital Signs Temp 36.6 C 12/24/17 07:20 Pulse 74 12/24/17 07:20 Resp 18 12/24/17 07:52 BP 147/77 12/24/17 07:20 Pulse Ox 97 12/24/17 07:20 Intake & Output 12/23/17 12/24/17 12/24/17 18:59 06:59 18:59 Intake Total 900 1100 Output Total 1100 1974 Balance -200 -635 -300 Intake: Oral 900 1100 Output: Urine 1100 1974 Other: # Bowel Movements 1 1 Estimated Stool Amount Large Medium Gen:awake, no distress HEENT:PERRL, MMM Heart:RRR no murmur Lungs:CTA BL Abd:+BS NTND soft Skin: no rash MSK: Left midfoot plantar option Laboratory Results - last 24 hr 12/23/17 12/23/17 12/23/17 12:53 16:31 21:32 POC Glucose (mg/dL) 132 H 231 H 229 H 12/24/17 07:50 POC Glucose (mg/dL) 135 H Microbiology 12/17/17 15:55 Wound - Left Anaerobic Culture - Final No Growth Day 4 12/17/17 15:55 Foot Left Gram Stain - Final 12/17/17 15:55 Foot Left Wound Culture - Final No Growth Day 4 12/13/17 00:20 Blood Venous Aerobic Blood Culture - Final No Growth Day 5 12/13/17 00:20 Blood Venous Anaerobic Blood Culture - Final No Growth Day 5 12/13/17 00:20 Blood Venous Aerobic Blood Culture - Final No Growth Day 5 12/13/17 00:20 Blood Venous Anaerobic Blood Culture - Final No Growth Day 5 12/13/17 04:05 Foot Left Skin and Soft Tissue MRSA/MSSA (PCR - Final Mrsa Negative S.aureus Negative 12/13/17 04:05 Foot Left Gram Stain - Final 12/13/17 04:05 Foot Left Wound Culture - Final Strep Agalactiae - (Group B) Proteus Penneri Pathology: no osteomyelitis Assessment: 1. left foot chronic non pressure related wound 2. diabetes with neuropathy 3. morbid obesity 4. chronic kidney disease Plan: 1. levaquin 500 mg daily, flagyl 500 mg IV three times daily day 08/07. Vac and wound care per orthopedics
[2017-12-24] MEDS: Levofloxacin TAB* 500 MG PO SCH (16:46)
[2017-12-24] MEDS: Insulin GLARGINE(*) 1 UNITS UNIT SUBCUT SCH (22:00)
--- NOTE | 2017-12-25 04:11 | DS ---
CC: Dr. Greene; Dr. Walker; Dr. Hernandes * DISCHARGE SUMMARY: DATE OF ADMISSION: 12/13/17 DATE OF DISCHARGE: 12/24/17 PRIMARY CARE PROVIDER: Dr. Greene. DISCHARGE DIAGNOSIS: Neuropathic left foot ulcer, status post I and D by Dr. Walker on 12/17/17 with subsequent VAC dressing placement. The patient is being discharged with wound VAC in place. SECONDARY DIAGNOSES: 1. History of right foot osteomyelitis, status post right forefoot amputation in 2013. 2. History of interstitial nephritis with end-stage renal disease requiring dialysis secondary to cefepime that was transient and resolved. 3. History of Asperger's. 4. History of poorly controlled diabetes, insulin dependent. 5. History of neuropathy. 6. Hyperlipidemia. MEDICATIONS AT DISCHARGE: Include: 1. Humalog 10 units with every meal. 2. Amlodipine 5 mg daily. 3. Insulin Lantus 58 units daily. 4. Pravachol 20 mg daily. 5. Prozac 40 mg daily. 6. Levaquin 500 mg a day for a total of 17 days. 7. Flagyl 500 mg 3 times a day for a total of 17 days. LABORATORY DATA AND STUDIES PERFORMED DURING THE HOSPITAL STAY: Included on 01/25, sodium 133, potassium 4.2, chloride 100, carbon dioxide 27, BUN 20, creatinine 1.03. White blood cell count 12.0, hemoglobin 11.2, hematocrit 35, and platelets 423,000. Remaining laboratory values included iron level 30, TIBC 280, iron saturation 11%, transferrin 200, ferritin 166. C-reactive protein was 55 at admission. Wound culture from the left foot showed Strep agalactiae and Proteus penneri. Blood cultures obtained at admission were negative to growth. CONSULTATIONS DURING THE HOSPITAL STAY: Included Dr. Hernandes, Infectious Diseases; Dr. Walker, Orthopedic Surgery. HOSPITALIZATION COURSE: Main Maldonado is a 57-year-old male with history of diabetic neuropathy, who presented with a nonhealing left foot ulcer. He was placed on intravenous antibiotics under direction of Dr. Hernandes. Dr. Walker performed I and D of the wound on 12/17/17 and subsequent wound VAC placement. The patient was noncompliant with the directions of nonweightbearing on the left foot. Eventually, Dr. Walker allowed for the patient to be partial nonweightbearing with heel touch most of the time if needed. The patient is strongly encouraged not to use his left foot as much as possible. Please note that on 12/13/17, he had left foot MRI obtained which showed soft tissue swelling and soft tissue ulcer, no evidence of osteomyelitis. Findings suggestive of a Charcot joint. The patient was noted to have a mild iron-deficiency anemia and was started on iron supplement during this hospital stay. His Lantus insulin was slowly titrated up to 58 units daily, but it may need to be adjusted after discharge. Dr. Hernandes at discharge recommended for the patient to finish a total of 3 weeks of antibiotics. The patient was discharged on day 11 out of 28 and he requires another 17 days of Levaquin as such or as above mentioned. After discharge, the patient is recommended to follow up with Dr. Walker and he is going to be seeing Dr. Walker in 3 days after discharge on for wound VAC dressing change. He is being discharged with wound VAC dressing. Visiting nurses are going to follow up with the patient at home. PHYSICAL EXAMINATION: At the time of discharge, blood pressure of 141/71, heart rate of 71 and regular, respiratory rate 18, oxygen saturation 95% on room air, temperature 97.6. General: The patient is a very pleasant 57-year-old obese male with a BMI of 44. The patient is in no acute distress, alert, awake , and oriented x3. HEENT: Head; Atraumatic, normocephalic. Eyes: Pupils are equal, reactive to light and accommodation. Oropharynx is clear. Mucosa moist. Neck: Supple. No JVD. No bruits bilaterally. Cardiovascular: Regular rate and rhythm. No murmur. Respiratory: Clear to auscultation bilaterally. Abdomen: Soft, nontender. Bowel sounds are present in all 4 quadrants. Extremities: There is very mild left-sided pedal edema. The right foot is status post right forefoot amputation with stump healed well. No evidence of ulcerations. The bottom of the left foot medial aspect has an ulcer covered with wound VAC dressing in place. There is no evidence of surrounding cellulitis. Neuro Evaluation: Speech clear. Cranial nerves II through XII grossly intact. Motor strength is 5/5 bilaterally. Please note that this is a short summary of the patient's hospitalization. Please refer to further medical records for details. TIME SPENT: Approximately 45 minutes was spent in preparation of the patient's discharge. [id number]/[facility] #: [id number] [facility]PITALAlfredo
[2017-12-25] MEDS: Heparin VIAL(*) 5000 UNITS/ML VIAL (FIVE THOUSAND) SUBCUT SCH (06:01)
--- NOTE | 2017-12-25 08:26 | PN ---
Progress Note - Progress Note Date of Service: 12/25/17 SOAP: Subjective: []Patient seen at bedside. He is feeling well without LLE pain, CP, SOB, fever, chills. He is ready for D/C. Objective: [] Vital Signs Temp 97.3 F 12/25/17 07:35 Pulse 67 12/25/17 07:35 Resp 18 12/25/17 07:40 BP 145/74 12/25/17 07:35 Pulse Ox 99 12/25/17 07:35 Intake & Output 12/24/17 12/25/17 12/25/17 18:59 06:59 18:59 Intake Total 680 800 480 Output Total 600 1300 575 Balance 80 -500 -95 Intake: Oral 680 800 480 Output: Urine 600 1300 575 Other: # Bowel Movements 1 Estimated Stool Amount Medium Laboratory Last Values WBC 12.0 10^3/ul (3.5-10.8) H 12/23/17 05:47 RBC 4.84 10^6/ul (4.0-5.4) 12/23/17 05:47 RBC (Retic) 4.90 10^6/ul (4.6-6.2) 12/19/17 07:21 Hgb 11.2 g/dl (14.0-18.0) L 12/23/17 05:47 Hct 35 % (42-52) L 12/23/17 05:47 HCT (Retic) 35 % (42-52) L 12/19/17 07:21 MCV 72 fL (80-94) L 12/23/17 05:47 MCH 23 pg (27-31) L 12/23/17 05:47 MCHC 32 g/dl (31-36) 12/23/17 05:47 RDW 19 % (10.5-15) H 12/23/17 05:47 Plt Count 423 10^3/ul (150-450) 12/23/17 05:47 MPV 6.7 um3 (7.4-10.4) L 12/23/17 05:47 Neut % (Auto) 72.0 % (38-83) 12/23/17 05:47 Lymph % (Auto) 14.0 % (25-47) L 12/23/17 05:47 Harvey % (Auto) 9.9 % (0-7) H 12/23/17 05:47 Eos % (Auto) 3.3 % (0-6) 12/23/17 05:47 Baso % (Auto) 0.8 % (0-2) 12/23/17 05:47 Absolute Neuts (auto) 8.6 10^3/ul (1.5-7.7) H 12/23/17 05:47 Absolute Lymphs (auto) 1.7 10^3/ul (1.0-4.8) 12/23/17 05:47 Absolute Monos (auto) 1.2 10^3/ul (0-0.8) H 12/23/17 05:47 Absolute Eos (auto) 0.4 10^3/ul (0-0.6) 12/23/17 05:47 Absolute Basos (auto) 0.1 10^3/ul (0-0.2) 12/23/17 05:47 Absolute Nucleated RBC 0 10^3/ul 12/23/17 05:47 Nucleated RBC % 0.1 12/23/17 05:47 Retic Count, Calc 2.0 % (0.5-1.5) H 12/19/17 07:21 Corrected Retic Count 1.6 % (0.5-1.5) H 12/19/17 07:21 Retic Shift Factor 1.5 12/19/17 07:21 Retic Production Index 1.10 12/19/17 07:21 Immature Retic Fraction 0.49 12/19/17 07:21 Mean Retic Volume 96.5 12/19/17 07:21 INR (Anticoag Therapy) 1.05 (0.77-1.02) H 12/13/17 00:20 APTT 33.6 seconds (26.0-36.3) 12/13/17 00:20 Sodium 133 mmol/L (139-145) L 12/23/17 05:47 Potassium 4.2 mmol/L (3.5-5.0) 12/23/17 05:47 Chloride 100 mmol/L (101-111) L 12/23/17 05:47 Carbon Dioxide 27 mmol/L (22-32) 12/23/17 05:47 Anion Gap 6 mmol/L (2-11) 12/23/17 05:47 BUN 20 mg/dL (6-24) 12/23/17 05:47 Creatinine 1.03 mg/dL (0.67-1.17) 12/23/17 05:47 Est GFR ( Amer) 96.4 (>60) 12/23/17 05:47 Est GFR (Non-Af Amer) 75.0 (>60) 12/23/17 05:47 BUN/Creatinine Ratio 19.4 (8-20) 12/23/17 05:47 Glucose 116 mg/dL (70-100) H 12/23/17 05:47 POC Glucose (mg/dL) 131 mg/dL (70-100) H 12/25/17 07:36 Hemoglobin A1c 9.9 % (4.0-5.6) H 12/13/17 14:26 Lactic Acid 1.8 mmol/L (0.5-2.0) 12/13/17 00:20 Calcium 9.1 mg/dL (8.6-10.3) 12/23/17 05:47 Iron 30 ug/dL (50-212) L 12/19/17 07:21 TIBC 280 mcg/dL (250-450) 12/19/17 07:21 % Saturation 11 % (15-55) L 12/19/17 07:21 Unsat Iron Binding 250 ug/dL 12/19/17 07:21 Transferrin 200 mg/dL (203-362) L 12/19/17 07:21 Ferritin 166.6 ng/mL (24-336) 12/19/17 07:21 Total Bilirubin 0.30 mg/dL (0.2-1.0) 12/13/17 00:20 AST 8 U/L (13-39) L 12/13/17 00:20 ALT 9 U/L (7-52) 12/13/17 00:20 Alkaline Phosphatase 130 U/L (34-104) H 12/13/17 00:20 C-Reactive Protein 53.27 mg/L (< 5.00) H 12/16/17 05:14 Total Protein 8.0 g/dL (6.4-8.9) 12/13/17 00:20 Albumin 3.5 g/dL (3.2-5.2) 12/13/17 00:20 Globulin 4.5 g/dL (2-4) H 12/13/17 00:20 Albumin/Globulin Ratio 0.8 (1-3) L 12/13/17 00:20 Vancomycin Trough 18.4 mcg/mL 12/14/17 09:41 General: Well appearing, NAD, calm and cooperative LLE: Splint CDI. Wound vac functioning. Toes nonerythematous, able to wiggle, capillary refill less than two seconds. No erythema and nontender proximal to splint. RLE: Calf soft and nontender without erythema, edema or palpable cords. Foot is surgically absent. Assessment: [] Left foot ulcer s/p I&D and vac placement. Plan: []- Antibiotics per ID: levaquin 500 mg daily, flagyl 500 mg IV three times daily day 09/06. - Follow up with Dr. Walker on for wound vac change - Partial weight bearing with post-op shoe, splint on L foot - Dressing and splint to remain CDI. May shower with assistance, keep splint/ dressing/vac dry. - Awaiting walker, then can DC
[2017-12-25] MEDS: FLUoxetine CAP* 20 MG PO SCH (09:36)
[2017-12-25] MEDS: Ferrous Sulfate TAB* 325 MG PO SCH (09:36)
[2017-12-25] MEDS: metroNIDAZOLE TAB* 250 MG PO SCH ×2 (09:36→13:19)
[2017-12-25] MEDS: amLODIPine TAB* 5 MG PO SCH (09:36)
[2017-12-25] MEDS: Insulin LISPRO* 1 UNITS UNIT SUBCUT SCH ×4 (09:37→13:20)
[2017-12-25] MEDS: CMC:Ketoconazole 2 % CREAM (NF) 30 GM TUBE TOPICAL SCH (09:39)
[2017-12-25 11:45] VITALS: BP 160/76
== END 2017-12-25 13:55 | disposition home health service (06) | DRG 314 ==
LOC: ED 23:23 → SSU 12-13 02:06
PROVIDERS: ADMIT Pediatrics; ATTEND Internal Medicine
PROC: 2W1TX6Z Compression of Left Foot using Pressure Dressing (ICD-10-PCS; 2017-12-17)
PROC: 0QBM0ZZ Excision of Left Tarsal, Open Approach (ICD-10-PCS; principal; 2017-12-17 12:45)
DX: E11.621 Type 2 diabetes mellitus with foot ulcer (principal); E11.52 Type 2 diabetes mellitus with diabetic peripheral angiopathy with gangrene; I96 Gangrene, not elsewhere classified; F84.5 Asperger's syndrome; M86.672 Other chronic osteomyelitis, left ankle and foot; Z68.41 Body mass index [BMI] 40.0-44.9, adult; E11.40 Type 2 diabetes mellitus with diabetic neuropathy, unspecified; F17.210 Nicotine dependence, cigarettes, uncomplicated; F41.9 Anxiety disorder, unspecified; F32.9 Major depressive disorder, single episode, unspecified; F43.10 Post-traumatic stress disorder, unspecified; E11.22 Type 2 diabetes mellitus with diabetic chronic kidney disease; I12.9 Hypertensive chronic kidney disease with stage 1 through stage 4 chronic kidney disease, or unspecified chronic kidney disease; N18.9 Chronic kidney disease, unspecified; L97.529 Non-pressure chronic ulcer of other part of left foot with unspecified severity; E11.65 Type 2 diabetes mellitus with hyperglycemia; K52.9 Noninfective gastroenteritis and colitis, unspecified; E78.5 Hyperlipidemia, unspecified; E11.69 Type 2 diabetes mellitus with other specified complication; E66.01 Morbid (severe) obesity due to excess calories; D50.9 Iron deficiency anemia, unspecified; E11.610 Type 2 diabetes mellitus with diabetic neuropathic arthropathy; Z79.4 Long term (current) use of insulin; Z89.431 Acquired absence of right foot; Z88.1 Allergy status to other antibiotic agents; Z72.89 Other problems related to lifestyle; Z91.19 Patient's noncompliance with other medical treatment and regimen
CPT/HCPCS: 36415; 80048; 80053; 80202; 82728; 83036; 83540; 83550; 83605; 85025; 85027; 85045; 85610; 85730; 86140; 87040; 87070; 87073; 87077; 87184; 87186; 87205; 87640; 87641; 88304; 88311; 94760; 99284; 99406; A9270-GY; J0744; J1644; J1956; J2001; J2250; J2543; J3010; J3370; J3490

== ENCOUNTER 2018-01-22 11:56 | Inpatient (IN) | payer OTHER ==
[2018-01-22] MEDS ORDERED: NS 0.9% 1000 ML* 1,000 ML IV ONE (12:34)
[2018-01-22 13:14] LABS: ABS Basophils 0.1 10^3/ul (0-0.2); ABS Eosinophils 0.3 10^3/ul (0-0.6); ABS Lymphocytes 1.6 10^3/ul (1.0-4.8); ABS Monocytes 1.2 10^3/ul (0-0.8); ABS Neutrophils 10.8 10^3/ul (1.5-7.7); ABS Nucleated RBC 0 10^3/ul; Eosinophil % 2.4 % (0-6); Hematocrit 31 % (42-52); Hemoglobin 10.2 g/dl (14.0-18.0); Lymphocyte % 11.2 % (25-47); Mean Corpuscular HGB Conc 33 g/dl (31-36); Mean Corpuscular Hemoglobin 24 pg (27-31); Mean Corpuscular Volume 72 fL (80-94); Mean Platelet Volume 7.2 um3 (7.4-10.4); Nucleated Red Blood Cells % 0.1; Platelet Count 389 10^3/ul (150-450); Red Blood Count 4.34 10^6/ul (4.0-5.4); Red Cell Distribution Width 20 % (10.5-15)
[2018-01-22 13:22] LABS: INR 1.19 (0.77-1.02)
[2018-01-22 13:30] LABS: EGFR Non-African American 78.5 (>60)
--- NOTE | 2018-01-22 13:43 | RAD ---
Indication: Fever. Single frontal view of the chest performed at 1316 hours was reviewed. Comparison is made with previous exam dated August 04, 2014. Cardiomegaly is noted. Interstitial edema consistent with vascular congestion is noted. IMPRESSION: CARDIOMEGALY WITH INTERSTITIAL EDEMA AND VASCULAR CONGESTION.
[2018-01-22] MEDS ORDERED: Al Hydrox/Mg Hydrox/Simet LIQ* 30 ML UDC PO PRN (13:47)
[2018-01-22] MEDS ORDERED: Insulin GLARGINE(*) 1 UNITS UNIT SUBCUT SCH (14:00)
[2018-01-22] MEDS ORDERED: Insulin LISPRO* 1 UNITS UNIT SUBCUT SCH ×2 (14:00→21:00)
[2018-01-22] MEDS ORDERED: ZOSYN 3.375 GM x ONE DOSE over 30 miuntes IVPB ×2 (14:00)
--- NOTE | 2018-01-22 14:15 | ED ---
Gregorio Guerin Natalie scribed for Brant Beauchamp MD on 01/22/18 at 1231 . Lower Extremity - HPI Summary HPI Summary: The patient is a 57 y/o M presenting to the ED c/o ulceration on left foot that is not healing properly. Last month, the pt had surgery on his left foot that involved a degradation of the bone. The pt was in Dr. Walker's office today for a checkup, who told the pt that he should come to the ED for a workup with MRI and admittance to [facility]. The pt's BP was also higher than normal, although he has been taking his BP medications. The pt was taking Flagyl and Lisinopril after the surgery. Prior to the surgery, he started having an intermittently constant nonproductive cough. While the cough would only come every few hours, it would last for 10-15 minutes at a time. Pt additionally c/o fever and lethargy. He has partial amputation in right foot as well. - History of Current Complaint Chief Complaint: EDSoftTissueLowExtr Stated Complaint: LT FOOT PROBLEM-DR SENT Time Seen by Provider: 01/22/18 12:02 Hx Obtained From: Patient Mechanism Of Injury: Other - ulceration s/p surgery Onset/Duration: Weeks Severity Initially: Mild Severity Currently: Mild Pain Intensity: 0 Pain Scale Used: 0-10 Numeric Timing: Lasting Days Location: Is Discrete @ - left foot Associated Signs And Symptoms: Positive: Other - lethargy, nonproductive cough Aggravating Factor(s): Nothing Alleviating Factor(s): Nothing - Allergies/Home Medications Allergies/Adverse Reactions: Allergies Allergy/AdvReac Type Severity Reaction Status Date / Time cefepime Allergy See Comment Verified 01/22/18 12:24 Home Medications: Home Medications Insulin Glargine,Hum.rec.anlog [Basaglar Kwikpen] 60 unit SUBCUT BEDTIME [History Confirmed 01/22/18] Insulin LISPRO* [HumaLOG*] 15 units SUBCUT TID 01/22/18 [History Confirmed 01/22] Iron-Vitamin C 65/125(Nf) [Vitron-C (NF)] 1 tab PO DAILY 01/22/18 [History Confirmed 01/22/18] Levofloxacin TAB* [Levaquin TAB*] 500 mg PO DAILY 01/22/18 [History Confirmed ] Lisinopril TAB* [Prinivil TAB*] 10 mg PO DAILY 01/22/18 [History Confirmed 01/22] Pravastatin (NF) [Pravachol (NF)] 20 mg PO DAILY 01/22/18 [History Confirmed ] PMH/Surg Hx/FS Hx/Imm Hx Endocrine/Hematology History: Reports: Hx Diabetes Denies: Hx Anticoagulant Therapy, Hx Blood Disorders, Hx Blood Transfusions, Hx Bone Marrow Disease, Hx Systemic Lupus Erythematosus, Hx Sickle Cell Disease , Hx Thyroid Disease, Hx Anemia, Hx Unexplained Bleeding, Other Endocrine/ Hematological Disorders Cardiovascular History: Reports: Hx Hypertension, Hx Peripheral Vascular Disease Denies: Hx Congestive Heart Failure, Hx Pacemaker/ICD History: Reports: Hx Acute Renal Failure, Hx Chronic Renal Failure, Hx Dialysis, Other Problems/Disorders - Acute kidney injury Denies: Hx Renal Disease Musculoskeletal History: Reports: Hx Arthritis, Other Musculoskeletal History - osteomyelitis w R midfoot amputation Denies: Hx Osteoporosis Sensory History: Reports: Hx Contacts or Glasses - not w pt Denies: Hx Hearing Aid Opthamlomology History: Reports: Hx Contacts or Glasses - not w pt Neurological History: Reports: Other Neuro Impairments/Disorders - peripheral neuropathy Psychiatric History: Reports: Hx Anxiety, Hx Depression, Hx Panic Disorder - 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 CATHETER IN NECK FOR DIALYSIS Hx Anesthesia Reactions: No Infectious Disease History: No Infectious Disease History: Denies: Traveled Outside the [place] in Last 30 Days - Family History Known Family History: Positive: Hypertension, Diabetes - Social History Alcohol Use: Rare Substance Use Type: Reports: None Smoking Status (MU): Light Every Day Tobacco Smoker Type: Cigarettes Amount Used/How Often: 1PPD OR LESS 20 YEARS Have You Smoked in the Last Year: Yes Review of Systems Positive: Other - lethargy Positive: Other - high blood pressure Positive: Cough - nonproductive Positive: Other - ulceration on left foot All Other Systems Reviewed And Are Negative: Yes Physical Exam - Summary Physical Exam Summary: General: well-appearing, no pain distress Skin: warm, color reflects adequate perfusion, dry Head: normal Eyes: EOMI, JASSON ENT: normal Neck: supple, nontender Respiratory: CTA, breath sounds present Cardiovascular: RRR Abdomen: soft, nontender Bowel: present Musculoskeletal: normal, strength/ROM intact, prosthesis of right foot, left foot is in walking boot, When dressing was undone, there is an ulcer of full thickness 5x3 cm with surrounding erythema on medial plantar aspect of left foot Neurological: normal, sensory/motor intact, A&O x3 Psychological: affect/mood appropriate Triage Information Reviewed: Yes Vital Signs On Initial Exam: Initial Vitals Temp Pulse Resp BP Pulse Ox 97.8 F 86 22 169/83 94 01/22/18 11:57 01/22/18 11:57 01/22/18 11:57 01/22/18 11:57 01/22/18 11:57 Vital Signs Reviewed: Yes Diagnostics - Vital Signs Vital Signs Temp Pulse Resp BP Pulse Ox 01/22/18 11:57 97.8 F 86 22 169/83 94 - Laboratory Lab Results: Lab Results 01/22/18 01/22/18 01/22/18 Range/Units 13:00 13:00 13:00 WBC 14.0 H (3.5-10.8) 10^3/ul RBC 4.34 (4.0-5.4) 10^6/ul Hgb 10.2 L (14.0-18.0) g/dl Hct 31 L (42-52) % MCV 72 L (80-94) fL MCH 24 L (27-31) pg MCHC 33 (31-36) g/dl RDW 20 H (10.5-15) % Plt Count 389 (150-450) 10^3/ul MPV 7.2 L (7.4-10.4) um3 Neut % (Auto) 76.8 (38-83) % Lymph % (Auto) 11.2 L (25-47) % [place] % (Auto) 8.8 H (0-7) % Eos % (Auto) 2.4 (0-6) % Baso % (Auto) 0.8 (0-2) % Absolute Neuts (auto) 10.8 H (1.5-7.7) 10^3/ul Absolute Lymphs (auto) 1.6 (1.0-4.8) 10^3/ul Absolute Monos (auto) 1.2 H (0-0.8) 10^3/ul Absolute Eos (auto) 0.3 (0-0.6) 10^3/ul Absolute Basos (auto) 0.1 (0-0.2) 10^3/ul Absolute Nucleated RBC 0 10^3/ul Nucleated RBC % 0.1 INR (Anticoag Therapy) 1.19 H (0.77-1.02) APTT 34.9 (26.0-36.3) seconds Sodium 130 L (139-145) mmol/L Potassium TNP Chloride 98 L (101-111) mmol/L Carbon Dioxide 26 (22-32) mmol/L Anion Gap 6 (2-11) mmol/L BUN 19 (6-24) mg/dL Creatinine 0.99 (0.67-1.17) mg/dL Est GFR ( Amer) 100.9 (>60) Est GFR (Non-Af Amer) 78.5 (>60) BUN/Creatinine Ratio 19.2 (8-20) Glucose 143 H (70-100) mg/dL Lactic Acid (0.5-2.0) mmol/L Calcium 9.1 (8.6-10.3) mg/dL Total Bilirubin 0.40 (0.2-1.0) mg/dL AST TNP ALT 9 (7-52) U/L Alkaline Phosphatase 83 (34-104) U/L Total Creatine Kinase 44 (10-223) U/L Troponin I 0.01 (<0.04) ng/mL C-Reactive Protein 87.35 H (< 5.00) mg/L B-Natriuretic Peptide ( - 100) pg/mL Total Protein 8.1 (6.4-8.9) g/dL Albumin 3.4 (3.2-5.2) g/dL Globulin 4.7 H (2-4) g/dL Albumin/Globulin Ratio 0.7 L (1-3) Procalcitonin (<0.6) ng/mL 01/22/18 01/22/18 01/22/18 Range/Units 13:00 13:02 13:02 WBC (3.5-10.8) 10^3/ul RBC (4.0-5.4) 10^6/ul Hgb (14.0-18.0) g/dl Hct (42-52) % MCV (80-94) fL MCH (27-31) pg MCHC (31-36) g/dl RDW (10.5-15) % Plt Count (150-450) 10^3/ul MPV (7.4-10.4) um3 Neut % (Auto) (38-83) % Lymph % (Auto) (25-47) % [place] % (Auto) (0-7) % Eos % (Auto) (0-6) % Baso % (Auto) (0-2) % Absolute Neuts (auto) (1.5-7.7) 10^3/ul Absolute Lymphs (auto) (1.0-4.8) 10^3/ul Absolute Monos (auto) (0-0.8) 10^3/ul Absolute Eos (auto) (0-0.6) 10^3/ul Absolute Basos (auto) (0-0.2) 10^3/ul Absolute Nucleated RBC 10^3/ul Nucleated RBC % INR (Anticoag Therapy) (0.77-1.02) APTT (26.0-36.3) seconds Sodium (139-145) mmol/L Potassium Chloride (101-111) mmol/L Carbon Dioxide (22-32) mmol/L Anion Gap (2-11) mmol/L BUN (6-24) mg/dL Creatinine (0.67-1.17) mg/dL Est GFR ( Amer) (>60) Est GFR (Non-Af Amer) (>60) BUN/Creatinine Ratio (8-20) Glucose (70-100) mg/dL Lactic Acid 0.6 (0.5-2.0) mmol/L Calcium (8.6-10.3) mg/dL Total Bilirubin (0.2-1.0) mg/dL AST ALT (7-52) U/L Alkaline Phosphatase (34-104) U/L Total Creatine Kinase (10-223) U/L Troponin I (<0.04) ng/mL C-Reactive Protein (< 5.00) mg/L B-Natriuretic Peptide 15 ( - 100) pg/mL Total Protein (6.4-8.9) g/dL Albumin (3.2-5.2) g/dL Globulin (2-4) g/dL Albumin/Globulin Ratio (1-3) Procalcitonin 0.2 (<0.6) ng/mL Result Diagrams: 01/22/18 13:00 01/22/18 13:00 Lab Statement: Any lab studies that have been ordered have been reviewed, and results considered in the medical decision making process. - Radiology CXR Xray Interpretation: Positive (See Comments) - Cardiomegaly with interstitial edema and vascular congestion. ED physician has reviewed this report. Radiology Interpretation Completed By: Radiologist - EKG 12:59 Cardiac Rate: NL EKG Rhythm: Sinus Rhythm - [address] Segment: Normal Ectopy: None Lower Extremity Course/Dx - Course Course Of Treatment: Pts medications reviewed this visit. Allergies noted. High blood pressure noted. ADMIT HOSPITALIST. CRITICAL CARE TIME LESS THAN 30 MINUTES. - Diagnoses Provider Diagnoses: Poorly controlled blood pressure, Diabetic ulcer of left foot - Physician Notifications Discussed Care Of Patient With: Hallie King Time Discussed With Above Provider: 12:15 - I spoke with Dr. King, hospitalist , concerning pt's possible admittance to [facility]. Discharge - Sign-Out/Discharge Documenting (check all that apply): Discharge/Admit/Transfer - Discharge Plan Condition: Stable Disposition: ADMITTED TO [facility] Referrals: Daniel Greene MD [Primary Care Provider] - - Billing Disposition and Condition Condition: STABLE Disposition: HOSP-[facility] The documentation as recorded by the Gregorio akhtar Natalie accurately reflects the service I personally performed and the decisions made by me, Brant Beauchamp MD.
[2018-01-22 14:33] LABS: Urine Appearance Clear; Urine Blood Negative (Negative); Urine Color Yellow; Urine Ketones Negative (Negative); Urine Protein Negative (Negative); Urine Specific Gravity 1.014 (1.010-1.030); Urine Urobilinogen Negative (Negative)
--- NOTE | 2018-01-22 16:07 | RAD ---
INDICATION: Left foot osteomyelitis. COMPARISON: Comparison is made with a prior x-ray study of the left foot from December 13, 2017 and a prior MRI of the left foot also from December 13, 2017. TECHNIQUE: Axial, sagittal and coronal T1 and T2-weighted images of the left foot were obtained. FINDINGS: There is a large ulcer present along the medial plantar aspect of the mid and forefoot with surrounding soft tissue swelling. There is new bone marrow edema seen on T1 and T2-weighted images present in the proximal half of the first metatarsal and at the base of the second metatarsal. There is also bone marrow edema present in the medial and intermediate cuneiform bones. No focal fluid collection or abscess is seen. There is moderate osteoarthritic change in the intertarsal and tarsometatarsal joints. IMPRESSION: NEW BONE MARROW EDEMA WITHIN THE FIRST, SECOND METATARSAL BONES AND MEDIAL AND INTERMEDIATE CUNEIFORM BONES ADJACENT TO A SOFT TISSUE LARGE ULCER MOST CONSISTENT WITH OSTEOMYELITIS.
[2018-01-22] MEDS ORDERED: Dextrose 50% Syringe 50 ML* 25 GM/50 ML SYRINGE IV PUSH PRN (16:39)
[2018-01-22] MEDS: Enoxaparin(*) 40 MG/0.4 ML SYR SUBCUT SCH (16:50)
[2018-01-22] MEDS: Insulin LISPRO* 1 UNITS UNIT SUBCUT SCH (17:29)
[2018-01-22] MEDS: Piperacillin/Tazobac ADVAN(*) 3.375 GM in NS 0.9% 100 ML* 100 ML IVPB SCH (18:25)
--- NOTE | 2018-01-22 19:45 | HP ---
CC: Dr. Dave Hernandes; Dr. Rizwan Walker* HISTORY AND PHYSICAL: DATE OF ADMISSION: 01/22/18 TIME OF ADMISSION: 2 p.m. CHIEF COMPLAINT: Sent from ortho office. HISTORY OF PRESENT ILLNESS: This is a 57-year-old man with history of diabetes , who presents with a nonhealing left foot ulcer. He was sent from the orthopedic surgery clinic today for concern for infection. Mr. Maldonado does report several days of malaise and generally not feeling well. He has no sensation in his foot, so he denies pain, he denies foul odor, but he does believe that he was feeling feverish over the past couple of days with sweats and chills, though he did not take his temperature. His friend, Millie, is here with him. She is responsible for his wound care and he is currently living with her and she documents changes in the wound with photographs and she thinks that the wound has opened up a little bit more. She does daily dressing changes. Mr. Maldonado saw Dr. Hernandes last week in the office and has been taking levofloxacin and metronidazole; however, he got confused with the levofloxacin because he thought it was the lisinopril that he was also recently started on, so he missed a week of levofloxacin; however, he has been taking both antibiotics since last week when he saw Dr. Hernandes. His last admission was 12/13/17 to 12/24/17 for similar concerns. At that time , the wound was debrided by Dr. Walker on 12/18/17 and a wound VAC was placed. He was discharged with the wound VAC, which was removed 2 weeks ago. PAST MEDICAL HISTORY: Type 2 diabetes, peripheral vascular disease, PTSD/ Asperger's syndrome, hypertension. He was on dialysis for a brief time due to AIN from cefepime. His renal function has since recovered. SOCIAL HISTORY: He is currently living with his friend, Millie, although he does have his own condo. He smokes several cigarettes per day. He only occasionally drinks alcohol. His last drink was for the Super Bowl and he uses no other illicit drugs. REVIEW OF SYSTEMS: Positive for a nonproductive cough, subjective fevers, and chills. He denies diarrhea, dysuria, chest pain, shortness of breath, orthopnea. PHYSICAL EXAMINATION GENERAL: Alert, obese man, in no distress. He is nontoxic appearing. VITAL SIGNS: Blood pressure 155/82, heart rate 83, pulse ox 90% on room air, temperature 97.8. HEENT: Pupils equal, round, and reactive to light at 3 mm bilaterally. No nystagmus. Moist oral mucosa. No pharyngeal exudates or erythema. NECK: No JVD. No cervical or supraclavicular lymphadenopathy. LUNGS: His lungs are clear bilaterally. There are no wheezes or rhonchi. CHEST: He is in a regular rate and rhythm. He has no murmurs. ABDOMEN: Soft, nontender, nondistended. No guarding or rebound. EXTREMITIES: The right foot has a well-healed TMA. The left plantar surface has a 6-cm open wound approximately 1-cm deep with some yellow drainage and some granulation tissue. No surrounding erythema is noted. DIAGNOSTIC STUDIES/LAB DATA: White blood cells 14.0, hemoglobin 10.2, platelets 389, 77% neutrophils. Sodium 130, chloride 98, bicarb 26, lactic acid 0.6. CRP 87.35. Imaging: Chest x-ray: Cardiomegaly with interstitial edema and vascular congestion. ASSESSMENT AND PLAN: This is a 57-year-old man with history of diabetes and peripheral vascular disease, presenting with a nonhealing left foot ulcer, who was sent to the emergency department from the orthopedic surgery clinic for concern for ongoing infection and underlying osteomyelitis. 1. Nonhealing left foot ulcer. He underwent debridement and wound VAC approximately 1 month ago and returns today with leukocytosis and not feeling well for several days. Check blood cultures. Stop his p.o. antibiotics and start pip- tazo. I am consulting Dr. Hernandes and Dr. Walker will be following along. We will check an MRI to evaluate for bony involvement. The last VITOR report I can find is from 2013. I wonder if there is any benefit to repeating vascular studies to evaluate for healing potential. I will defer this decision to Orthopedic Surgery as we discussed the need for operative management going forward. 2. Type 2 diabetes. I need to verify his medication reconciliation as the ED med rec shows that he is on Lantus, Humalog, and Basaglar. I will discuss this with him and Millie to see what he is actually taking. 3. Vascular congestion on chest x-ray. He is not hypoxic and is in no respiratory distress. However, he has no underlying cardiomyopathy that we know of. I would like to check an echocardiogram especially as we consider operative approach as going forward. 4. Peripheral vascular disease. He is on a statin, but not on aspirin. He may benefit from aspirin if he truly has peripheral vascular disease. I will discuss this with him. 5. DVT prophylaxis: Lovenox. 6. Full code. [id number]/CPS #: [id number] MTDD
[2018-01-22] MEDS: Insulin GLARGINE(*) 1 UNITS UNIT SUBCUT SCH (21:44)
[2018-01-23] MEDS: Piperacillin/Tazobac ADVAN(*) 3.375 GM in NS 0.9% 100 ML* 100 ML IVPB SCH ×3 (02:56→18:33)
[2018-01-23 05:58] LABS: ABS Basophils 0.1 10^3/ul (0-0.2); ABS Eosinophils 0.4 10^3/ul (0-0.6); ABS Lymphocytes 1.4 10^3/ul (1.0-4.8); ABS Monocytes 1.1 10^3/ul (0-0.8); ABS Neutrophils 9.3 10^3/ul (1.5-7.7); ABS Nucleated RBC 0 10^3/ul; Eosinophil % 3.1 % (0-6); Hematocrit 31 % (42-52); Hemoglobin 10.1 g/dl (14.0-18.0); Lymphocyte % 11.2 % (25-47); Mean Corpuscular HGB Conc 33 g/dl (31-36); Mean Corpuscular Hemoglobin 24 pg (27-31); Mean Corpuscular Volume 72 fL (80-94); Mean Platelet Volume 7.1 um3 (7.4-10.4); Nucleated Red Blood Cells % 0.2; Platelet Count 363 10^3/ul (150-450); Red Blood Count 4.28 10^6/ul (4.0-5.4); Red Cell Distribution Width 20 % (10.5-15); White Blood Count 12.2 10^3/ul (3.5-10.8)
[2018-01-23 06:17] LABS: EGFR Non-African American 73.3 (>60)
[2018-01-23] MEDS ORDERED: Perflutren Lipid Microsphere* 3 ML VIAL ONE (08:01)
[2018-01-23] MEDS: IRON VITAMIN C PO SCH (08:21)
[2018-01-23] MEDS: amLODIPine TAB* 5 MG PO SCH (08:30)
[2018-01-23] MEDS: Insulin LISPRO* 1 UNITS UNIT SUBCUT SCH ×3 (08:30→17:46)
[2018-01-23] MEDS: Lisinopril TAB* 10 MG PO SCH (08:30)
[2018-01-23] MEDS: FLUoxetine CAP* 20 MG PO SCH (08:31)
--- NOTE | 2018-01-23 10:28 | PN ---
Subjective Date of Service: 01/23/18 Interval History: MRI concerning for bone edema, possible osteo Pt denies complaints Later would threaten to leave [facility]. Objective Active Medications: Al Hydrox/Mg Hydrox/Simethicone (Maalox Plus*) 30 ml PO Q6H PRN PRN Reason: INDIGESTION Amlodipine Besylate (Norvasc Tab*) 5 mg PO DAILY [facility] Last Admin: 01/23/18 08:30 Dose: 5 mg Dextrose (D50w Syringe 50 Ml*) 12.5 gm IV PUSH .FOR FS < 60 - SS PRN PRN Reason: FS < 60 Enoxaparin Sodium (Lovenox(*)) 40 mg SUBCUT Q24H [facility] Last Admin: 01/22/18 16:50 Dose: 40 mg Fluoxetine HCl (Prozac Cap*) 40 mg PO DAILY [facility] Last Admin: 01/23/18 08:31 Dose: 40 mg Piperacillin Sod/Tazobactam (Sod 3.375 gm/ Sodium Chloride) 100 mls @ 25 mls/ hr IVPB Q8H [facility] Last Admin: 01/23/18 02:56 Dose: 25 mls/hr Insulin Glargine (Lantus(*)) 58 units SUBCUT Q24HR@2200 [facility] Last Admin: 01/22/18 21:44 Dose: 58 units Insulin Human Lispro (Humalog*) 15 units SUBCUT TID AC [facility] Last Admin: 01/23/18 08:30 Dose: 15 units Iron/Vitamin C (Vitron-C (Nf)) 1 tab PO DAILY [facility] Last Admin: 01/23/18 08:21 Dose: Not Given Lisinopril (Prinivil Tab*) 10 mg PO DAILY [facility] Last Admin: 01/23/18 08:30 Dose: 10 mg Vital Signs - 8 hr 01/23/18 01/23/18 03:16 07:30 Temperature 98.2 F 98.3 F Pulse Rate 79 78 Respiratory 18 19 Rate Blood Pressure 154/75 138/74 (mmHg) O2 Sat by Pulse 92 87 Oximetry Oxygen Devices in Use Now: None Appearance: NAD Respiratory: Symmetrical Chest Expansion and Respiratory Effort, Clear to Auscultation Cardiovascular: NL Sounds; No Murmurs; No JVD Abdominal: NL Sounds; No Tenderness; No Distention Extremities: No Edema Skin: - - left foot plantar mid foot ulcer ~ [id number]. Neurological: Alert and Oriented x 3, - - profound neuropathy. Nutrition: Taking PO's Result Diagrams: 01/23/18 05:14 01/23/18 05:11 Additional Lab and Data: Laboratory Results - last 24 hr 01/23/18 01/23/18 01/23/18 08:04 12:02 17:12 POC Glucose (mg/dL) 145 H 153 H 142 H 01/23/18 20:47 POC Glucose (mg/dL) 155 H Microbiology and Other Data: Microbiology 01/22/18 13:03 Blood Venous Aerobic Blood Culture - Preliminary No Growth Day 1 01/22/18 13:03 Blood Venous Anaerobic Blood Culture - Preliminary No Growth Day 1 01/22/18 13:00 Blood Venous Aerobic Blood Culture - Preliminary No Growth Day 1 01/22/18 13:00 Blood Venous Anaerobic Blood Culture - Preliminary No Growth Day 1 01/22/18 14:18 Urine Urine Culture - Final No Growth (<1,000 CFU/mL) 01/23/18 11:00 Foot Left Gram Stain - Final Assess/Plan/Problems-Billing Assessment: 57 yo male with IDDM p/w nonhealing left diabetic foot ulcer. planned amputation. Medically cleared. On zosyn. - Patient Problems (1) Non-healing ulcer of left foot Current Visit: No Status: Acute Code(s): L97.529 - NON-PRESSURE CHRONIC ULCER OTH PRT LEFT FOOT W UNSP SEVERITY SNOMED Code(s): 557920859 Comment: continue zosyn. Had failed outpatient levaquin (though missed a week ) + flagyl appreciete ID and ortho recs. planned OR 01/24 (2) Uncontrolled diabetes mellitus Current Visit: No Status: Acute Code(s): E11.65 - TYPE 2 DIABETES MELLITUS WITH HYPERGLYCEMIA SNOMED Code(s): 294153120 Comment: cont Lantus 58U, High dose lispro SS (3) Asperger's disorder Current Visit: No Status: Chronic Code(s): F84.5 - ASPERGER'S SYNDROME SNOMED Code(s): 80646950 (4) Chronic renal failure Current Visit: No Status: Chronic Comment: - Stable creat at 1.05 today (5) HTN (hypertension) Current Visit: No Status: Chronic Code(s): I10 - ESSENTIAL (PRIMARY) HYPERTENSION SNOMED Code(s): 76509027 Comment: amlodipine 5 lisinopril 10. (6) PVD (peripheral vascular disease) Current Visit: No Status: Chronic Code(s): I73.9 - PERIPHERAL VASCULAR DISEASE, UNSPECIFIED SNOMED Code(s): 937934942 Comment: - With associated neuropathy (7) Full code status Current Visit: No Status: Acute Code(s): Z78.9 - OTHER SPECIFIED HEALTH STATUS SNOMED Code(s): 364310844
--- NOTE | 2018-01-23 10:42 | ECHO ---
Patient: BRIANNA GILLIS [facility] Rec#: [id number] : 1960 Date: 01/23/2018 Age: 57y Height: 180.34 cm / 71.0 in Weight: 145.15 kg / 319.9 lbs Sex: M BSA: 2.58 Room#: 402 Admit Date#: 01/22/2018 Type: Inpatient Referring: Hallie King MD Reading: Alice Orr MD [employer]ising Cook: Norma Ventura,RDCS,RDMS CC: Daniel Greene MD Transthoracic Echocardiogram Indication: Cardiomegaly BP: 154/75 HR: 77 Rhythm: NSR Findings History: DM, osteomyelitis, PVD, HTN Technical Comments: The study quality is fair. The study is technically limited due to patient body habitus. Left Ventricle: The left ventricular chamber size is normal. Mild to moderate concentric left ventricular hypertrophy is observed. There is a focal wall motion abnormality present.Base of the inferior wall hypokinetic on echo contrast views in 2 chamber view, wall motion and contractility otherwise normal. The estimated ejection fraction is 50-55%. There is no consistent Doppler evidence of clinically significant diastolic dysfunction. Left Atrium: The left atrium is mildly dilated. Right Ventricle: The right ventricle is mildly dilated. The right ventricular global systolic function is low normal. Right Atrium: The right atrium is mild to moderately dilated. Aortic Valve: The aortic valve is trileaflet. The aortic valve leaflets are mildly thickened. Systolic excursion of the aortic valve is normal. There is no evidence of aortic regurgitation. There is no evidence of aortic stenosis. The mean gradient of the aortic valve is 5.1 mmHg. Mitral Valve: The mitral valve leaflets appear normal. There is a trace of mitral regurgitation. There is no evidence of mitral stenosis. Tricuspid Valve: The tricuspid valve leaflets are normal. There is trace to mild tricuspid regurgitation. The right ventricular systolic pressure is estimated at 34 mmHg. There is evidence that pulmonary hypertension may be underestimated.Frame 55 envelope shows peak TR velocity possibly as high as 3.5 m/s and septum appears mildly D shaped in short axis views. Pulmonic Valve: There is no evidence of pulmonic valve thickening. There is a trace pulmonic regurgitation. Pericardium: There is no significant pericardial effusion. Aorta: There is borderline dilatation of the ascending aorta. The aortic arch is not well visualized. The aortic root is normal in size. Pulmonary Artery: The main pulmonary artery appears normal. Venous: The inferior vena cava appears normal in size. There is less than 50% respiratory change in the inferior vena cava dimension. Contrast: Definity was used to optimize study. A total of 2 ml was used Conclusions Mild to moderate concentric left ventricular hypertrophy is observed. The base of the inferior wall hypokinetic on echo contrast views in 2 chamber view, wall motion and contractility otherwise normal. This can be a varient of normal. The estimated ejection fraction is 50-55%. The right ventricle is mildly dilated. The right ventricular global systolic function is low normal. The aortic valve leaflets are mildly thickened with good function. There is a trace of mitral regurgitation. There is trace to mild tricuspid regurgitation. The right ventricular systolic pressure is estimated at 34 mmHg with evidence that pulmonary hypertension may be underestimated (see text). No prior echos available for comparison. Measurements Name Value Normal Range RVIDd (AP) 2D 3.9 cm (0.9 - 2.6) RVDdMajor (2D) 3.7 cm (2.2 - 4.4) RAd ISD 4CH 6.2 cm (3.4 - 4.9) RA (A4C)W 5.3 cm (2.9 - 4.6) IVSd (2D) 1.5 cm (0.6 - 1) LVPWd (2D) 1.5 cm (0.6 - 1) LVIDd (2D) 5.1 cm (3.6 - 5.4) LVIDs (2D) 3.2 cm - LV FS (2D) 36 % (25 - 45) Aortic Annulus 2 cm (1.4 - 2.6) Ao root diameter (2D) 3.3 cm (2.1 - 3.5) Ascending Ao 3.5 cm (2.1 - 3.4) LA dimension (AP) 2D 4.3 cm (2.3 - 3.8) LAd ISD 4CH 5.9 cm (2.9 - 5.3) LA ISD 4CH W 4.9 cm (2.5 - 4.5) Name Value Normal Range LA ESV SP 4CH (A/L) 84.52 ml - LA ESV SP 2CH (A/L) 66.46 ml - LA ESV BP (A/L) 84.09 ml - LA ESV BP (A/L) index 33 ml/m2 - LA ESV SP 4CH (MOD) 77.86 ml - LA ESV SP 2CH (MOD) 63.08 ml - Name Value Normal Range MV E-wave Vmax 1 m/sec - MV deceleration time 176 msec - MV A-wave Vmax 0.5 m/sec - MV E:A ratio 2 ratio - P. vein S-wave Vmax 0.4 m/sec - P. vein D-wave Vmax 0.6 m/sec - P. vein S:D Vmax ratio 0.7 ratio - P. vein A-wave duration 107 msec - LV septal e' Vmax 0.07 m/sec - LV lateral e' Vmax 0.08 m/sec - LV E:e' septal ratio 14 ratio - LV E:e' lateral ratio 12.5 ratio - Name Value Normal Range AV Vmax 1.5 m/sec - AV VTI 31.1 cm - AV peak gradient 9 mmHg - AV mean gradient 5.1 mmHg - LVOT Vmax 1 m/sec - LVOT VTI 20 cm - LVOT peak gradient 4 mmHg - LVOT mean gradient 1.6 mmHg - HERBERTH Vmax 0.9 m/sec - Name Value Normal Range TR Vmax 2.8 m/sec - TR peak gradient 31 mmHg - RAP 3 mmHg - RVSP 34 mmHg - IVC diameter 1.6 cm - Name Value Normal Range PV Vmax 0.7 m/sec - PV peak gradient 2 mmHg -
[2018-01-23] MEDS: Enoxaparin(*) 40 MG/0.4 ML SYR SUBCUT SCH (14:33)
--- NOTE | 2018-01-23 15:19 | PN ---
Progress Note - Progress Note Date of Service: 01/23/18 SOAP: Subjective: []Patient seen at bedside for left foot ulceration. Denies fever, chills, rash, foot pain. Objective: [] Vital Signs Temp 97.9 F 01/23/18 11:34 Pulse 79 01/23/18 11:34 Resp 16 01/23/18 11:34 BP 135/73 01/23/18 11:34 Pulse Ox 90 01/23/18 11:34 Intake & Output 01/22/18 01/23/18 01/23/18 18:59 06:59 18:59 Intake Total 410 859.5 800 Output Total 2175 Balance 410 -1315.5 800 Weight 320 lb Intake: IV Fluids 50 59.5 ABX - ZOSYN 59.5 Oral 360 800 800 Output: Urine 2175 Other: Estimated Void Medium # Bowel Movements 0 0 # Voids 3 Laboratory Last Values WBC 12.2 10^3/ul (3.5-10.8) H 01/23/18 05:14 RBC 4.28 10^6/ul (4.0-5.4) 01/23/18 05:14 Hgb 10.1 g/dl (14.0-18.0) L 01/23/18 05:14 Hct 31 % (42-52) L 01/23/18 05:14 MCV 72 fL (80-94) L 01/23/18 05:14 MCH 24 pg (27-31) L 01/23/18 05:14 MCHC 33 g/dl (31-36) 01/23/18 05:14 RDW 20 % (10.5-15) H 01/23/18 05:14 Plt Count 363 10^3/ul (150-450) 01/23/18 05:14 MPV 7.1 um3 (7.4-10.4) L 01/23/18 05:14 Neut % (Auto) 75.9 % (38-83) 01/23/18 05:14 Lymph % (Auto) 11.2 % (25-47) L 01/23/18 05:14 [place] % (Auto) 9.4 % (0-7) H 01/23/18 05:14 Eos % (Auto) 3.1 % (0-6) 01/23/18 05:14 Baso % (Auto) 0.4 % (0-2) 01/23/18 05:14 Absolute Neuts (auto) 9.3 10^3/ul (1.5-7.7) H 01/23/18 05:14 Absolute Lymphs (auto) 1.4 10^3/ul (1.0-4.8) 01/23/18 05:14 Absolute Monos (auto) 1.1 10^3/ul (0-0.8) H 01/23/18 05:14 Absolute Eos (auto) 0.4 10^3/ul (0-0.6) 01/23/18 05:14 Absolute Basos (auto) 0.1 10^3/ul (0-0.2) 01/23/18 05:14 Absolute Nucleated RBC 0 10^3/ul 01/23/18 05:14 Nucleated RBC % 0.2 01/23/18 05:14 INR (Anticoag Therapy) 1.19 (0.77-1.02) H 01/22/18 13:00 APTT 34.9 seconds (26.0-36.3) 01/22/18 13:00 Sodium 135 mmol/L (139-145) L 01/23/18 05:11 Potassium 3.9 mmol/L (3.5-5.0) 01/23/18 05:11 Chloride 102 mmol/L (101-111) 01/23/18 05:11 Carbon Dioxide 27 mmol/L (22-32) 01/23/18 05:11 Anion Gap 6 mmol/L (2-11) 01/23/18 05:11 BUN 18 mg/dL (6-24) 01/23/18 05:11 Creatinine 1.05 mg/dL (0.67-1.17) 01/23/18 05:11 Est GFR ( Amer) 94.3 (>60) 01/23/18 05:11 Est GFR (Non-Af Amer) 73.3 (>60) 01/23/18 05:11 BUN/Creatinine Ratio 17.1 (8-20) 01/23/18 05:11 Glucose 120 mg/dL (70-100) H 01/23/18 05:11 POC Glucose (mg/dL) 153 mg/dL (70-100) H 01/23/18 12:02 Lactic Acid 0.7 mmol/L (0.5-2.0) 01/22/18 16:09 Calcium 9.0 mg/dL (8.6-10.3) 01/23/18 05:11 Total Bilirubin 0.50 mg/dL (0.2-1.0) 01/23/18 05:11 AST 8 U/L (13-39) L 01/23/18 05:11 ALT 7 U/L (7-52) 01/23/18 05:11 Alkaline Phosphatase 92 U/L (34-104) 01/23/18 05:11 Total Creatine Kinase 44 U/L (10-223) 01/22/18 13:00 Troponin I 0.01 ng/mL (<0.04) 01/22/18 13:00 C-Reactive Protein 87.35 mg/L (< 5.00) H 01/22/18 13:00 B-Natriuretic Peptide 15 pg/mL (-100) 01/22/18 13:02 Total Protein 7.6 g/dL (6.4-8.9) 01/23/18 05:11 Albumin 3.3 g/dL (3.2-5.2) 01/23/18 05:11 Globulin 4.3 g/dL (2-4) H 01/23/18 05:11 Albumin/Globulin Ratio 0.8 (1-3) L 01/23/18 05:11 Procalcitonin 0.2 ng/mL (<0.6) 01/22/18 13:02 Urine Color Yellow 01/22/18 14:18 Urine Appearance Clear 01/22/18 14:18 Urine pH 5.0 (5-9) 01/22/18 14:18 Ur Specific [place] 1.014 (1.010-1.030) 01/22/18 14:18 Urine Protein Negative (Negative) 01/22/18 14:18 Urine Ketones Negative (Negative) 01/22/18 14:18 Urine Blood Negative (Negative) 01/22/18 14:18 Urine Nitrate Negative (Negative) 01/22/18 14:18 Urine Bilirubin Negative (Negative) 01/22/18 14:18 Urine Urobilinogen Negative (Negative) 01/22/18 14:18 Ur Leukocyte Esterase Trace (Negative) A 01/22/18 14:18 Urine WBC (Auto) Trace(0-5/hpf) (Absent) 01/22/18 14:18 Urine RBC (Auto) Trace(0-2/hpf) (Absent) 01/22/18 14:18 Ur Squamous Epith Cells Present (Absent) A 01/22/18 14:18 Urine Bacteria Absent (Absent) 01/22/18 14:18 Urine Glucose Negative (Negative) 01/22/18 14:18 General: Well appearing, NAD LLE: Left plantar/ medial midfoot with ulceration roughly 6 cm across, 1 cm deep with some granulation tissue as well as some yellow purulence. No erythema surrounding and no streaking erythema. 2+ DP/PT pulses. Calf supple and nontender. Assessment: [] Infected left foot ulcer Plan: []Vascular consult to Dr Griffin - requests arterial duplex which I have ordered. Will see patient in the morning. ID in room as well, wound culture taken. Plan for OR tomorrow for left partial foot amputation, NPO after midnight. Patient agreeable. Dr Canales will see in the morning Discussed with medicine, no need for further optimization prior to surgery
--- NOTE | 2018-01-23 19:30 | RAD ---
INDICATION: Medial mid foot wound in a patient suspected of having diabetic vasculopathy COMPARISON: None. TECHNIQUE: Mahoney scale, color Doppler, and spectral analysis utilized to image the left lower extremity arteries. Flow velocities were determined at each visualized artery. REPORT: The left common femoral artery, proximal femoral profundus, superficial femoral artery, popliteal artery and infrapopliteal arteries exhibit patency. There is mildly increased flow velocity measured at the left common femoral artery measuring 140 cm/s. This is within one standard deviation of the mean flow velocity expected at this artery. Increased flow velocity is recorded at the superficial femoral artery extending into the popliteal artery but there is no substantial focal increased relative to a more proximal arterial segment. According to the channeler outsole image 22 of 25 is erroneously labeled "Left [employer] Distal" and should be labeled dorsalis pedis. There is increased flow velocity measurement of the dorsalis pedis measuring 202 cm/s IMPRESSION: 1. Although there is in-line flow recorded from the left common femoral artery through the distal [employer] and dorsalis pedis arteries in the proximal foot, there are mildly increased velocities recorded at the left common femoral artery and superficial femoral artery that extended to the popliteal artery. 2. The flow velocity and increased in velocity measured at the dorsalis pedis artery indicates approximately 50% degree stenosis. Please correlate to clinical signs and symptoms of lower extremity arterial insufficiency. Mean Arterial diameter and Peak Systolic Flow Velocities Artery Diameter SD (cm) Velocity SD (cm/sec) Ext. Iliac 0.79 +/- 0.13 119.3 +/- 21.7 Common Femoral 0.82 +/- 0.14 114.1 +/- 24.9 Superficial Femoral (Prox.) 0.60 +/- 0.12 90.8 +/- 13.6 Superficial Femoral (Dist.) 0.54 +/- 0.11 93.6 +/- 14.1 Popliteal 0.52 +/- 0.11 68.8 +/- 13.5 Adapted from [employer]at Introduction to Vascular Sonography 5th ed. Diagnostic Criteria Femoral Popliteal Segment Stenosis Peak Velocity Velocity Ratio Normal < 150 cm/sec < 1.5:1 30%-49% 150 -200 cm/sec 1.5:1 ? 2:1 50%-75% 200 ? 400 cm/sec 2:1 ? 4::1 Occlusion No color saturation Adapted from Tripp DV, Elijah JE, et al.
--- NOTE | 2018-01-23 20:10 | CONS ---
CONSULTATION REPORT: DATE OF CONSULT: 01/23/18 REQUESTING PHYSICIAN: Dr. King. CONSULTING SERVICE: Infectious Disease. REASON FOR CONSULT: Left foot infection. IMPRESSION: 1. Recent admission with left medial foot abscess due to group B strep, status post incision and debridement, now with continued open wound at previous abscess site. MRI shows increased T1 and T2 marrow intensity in the first, second metatarsal bones and medial and intermediate cuneiform read as osteomyelitis. Those findings are fairly nonspecific and that the increase in T1 density can be reactive. There is no cellulitis or myositis seen on MRI. 2. Uncontrolled diabetes or peripheral neuropathy. 3. Morbid obesity. RECOMMENDATION: Agree with continuing Zosyn. I took a swab of the ulcer to see if there is any particular passage in there knowing that it may just represent colonization. I discussed with the patient that due to various comorbid conditions and the way this ulcer has gone since his last surgery, I think there is a high chance will be unable to heal this. We discussed that knowing that some people would opt for early definitive surgery to avoid what may be months of antibiotics, smaller surgical procedures and multiple hospital admissions. He is of the view that he would do anything possible to avoid amputation at this point. HISTORY OF PRESENT ILLNESS: This 57-year-old diabetic with obesity, left foot ulcer. He was in the hospital on 12/13/17 with left medial foot abscess, cellulitis. Culture grew group B strep. He was taken to the operating room on 12/17/[address] Walker and had incision and debridement and VAC dressing. He was discharged on Levaquin and Flagyl. Apparently, when he got home, he thought his lisinopril was the Levaquin, so he was only taking Flagyl for antibiotics. I saw him back in the office last week, we got him back on Levaquin. At that time, the incision which was sutured had opened up and there was some serous drainage and cellulitis. He was seen in orthopedic office yesterday and sent in because of the persistent wound. His cellulitis was resolved but wound is open. He had an MRI yesterday, which is read as new bone marrow edema in the first and second metatarsal bones, medial and intermediate cuneiform bones with increased T1 and T2 intensity. These changes were in the proximal half of the first metatarsal and base of the second metatarsal. He has had no fevers, chills, or sweats. His appetite has been good. He has been tolerating the antibiotics for the last few days. PAST MEDICAL HISTORY: 1. Insulin-dependent diabetes with peripheral neuropathy. 2. History of interstitial nephritis, requiring hemodialysis while on cefepime. 3. Asperger's disorder. 4. Hyperlipidemia. 5. Status post right foot amputation for osteomyelitis. 6. Incision and debridement, left medial foot ulcer, December 2017. MEDICATIONS: 1. Amlodipine. 2. Enoxaparin. 3. Fluoxetine. 4. Insulin glargine. 5. Insulin lispro. 6. Lisinopril. 7. Zosyn 3.375 g every 8 hours. ALLERGIES: CEFEPIME. FAMILY HISTORY: No recurrent infections. SOCIAL HISTORY: He has been staying with a friend. He was in [place]. He has no travel. No sick contacts or pets at home not licking the wound. REVIEW OF SYSTEMS: A 14-point review of systems was negative except as noted above. PHYSICAL EXAM: Vital Signs: Temperature is 37, heart rate 80, respiratory rate 19, blood pressure 140/70, oxygen saturation 90% on room air. In general, he is awake, not in distress. Neurologic: He is oriented x3, follows all commands. HEENT: There is no conjunctival hemorrhage. Oropharynx without lesions. Neck: Supple without mass. Lymph Nodes: There is no inguinal, axillary or epitrochlear lymphadenopathy. Heart: Regular rate and rhythm without murmurs, rubs, or gallops. Lungs: Clear to auscultation bilaterally. Abdomen: Soft, nontender, nondistended. There are bowel sounds present. Skin : There is no rash or splinter hemorrhages. Musculoskeletal: There is no spine tenderness to palpation. Left medial plantar mid foot about 3-cm ulceration with some underlying granulation and fibrinous slough. No surrounding erythema. There is no foul odor or serous drainage. LABORATORY DATA: White blood cell count 12, hemoglobin 10, platelets 363. Creatinine is 1. CRP was 90. Please see impressions and recommendations as outlined above. Thanks for asking me to see Mr. Maldonado in consultation. TIME SPENT: I spent 70 minutes of floor time, greater than 35 minutes face-to- face with patient discussing treatment options for his current left foot situation. [id number]/[facility] #: [id number] [facility]
[2018-01-23] MEDS ORDERED: MELATONIN 3 MG PO PRN (21:23)
[2018-01-23] MEDS: Insulin GLARGINE(*) 1 UNITS UNIT SUBCUT SCH (21:33)
[2018-01-24] MEDS: Piperacillin/Tazobac ADVAN(*) 3.375 GM in NS 0.9% 100 ML* 100 ML IVPB SCH ×4 (02:25→22:52)
[2018-01-24] MEDS: Insulin LISPRO* 1 UNITS UNIT SUBCUT SCH ×3 (08:03→17:56)
[2018-01-24] MEDS: amLODIPine TAB* 5 MG PO SCH (08:04)
[2018-01-24] MEDS: Lisinopril TAB* 10 MG PO SCH (08:04)
[2018-01-24] MEDS: FLUoxetine CAP* 20 MG PO SCH (08:04)
[2018-01-24] MEDS: IRON VITAMIN C PO SCH (08:05)
[2018-01-24 08:44] LABS: INR 1.19 (0.77-1.02)
[2018-01-24] MEDS ORDERED: Buffered Lidocaine 0.9% SYRIN* 5 ML/SYR SYRINGE INTRADERM ONE (08:49)
[2018-01-24 08:50] LABS: EGFR Non-African American 71.8 (>60)
[2018-01-24 08:54] LABS: ABS Basophils 0.1 10^3/ul (0-0.2); ABS Eosinophils 0.4 10^3/ul (0-0.6); ABS Lymphocytes 1.3 10^3/ul (1.0-4.8); ABS Monocytes 0.9 10^3/ul (0-0.8); ABS Nucleated RBC 0 10^3/ul; Eosinophil % 3.3 % (0-6); Hematocrit 32 % (42-52); Hemoglobin 10.6 g/dl (14.0-18.0); Lymphocyte % 10.9 % (25-47); Mean Corpuscular HGB Conc 33 g/dl (31-36); Mean Corpuscular Hemoglobin 24 pg (27-31); Mean Corpuscular Volume 73 fL (80-94); Mean Platelet Volume 6.7 um3 (7.4-10.4); Nucleated Red Blood Cells % 0; Platelet Count 364 10^3/ul (150-450); Red Blood Count 4.46 10^6/ul (4.0-5.4); Red Cell Distribution Width 20 % (10.5-15); White Blood Count 11.7 10^3/ul (3.5-10.8)
--- NOTE | 2018-01-24 09:16 | CONSULT ---
Consult Consult: Date of Service: 01/24/18 Reason for Consultation: Evaluate for arterial insufficiency in the presence of non-healing left foot wound. Requesting Service: Orthopaedic Surgery Focused HPI: At the time of consultation the patient is in bed #9 in the PACU preparing for a left foot mid foot amputation. Mr. Gillis is a 57-year-old man with history of diabetes, who presented with a nonhealing left foot ulcer. He was sent from the orthopedic surgery clinic today for concern for infection. He reports malaise and generally not feeling well. He has no sensation in his foot, so he denies pain, he denies foul odor, but he does believe that he was feeling feverish over the past couple of days with sweats and chills, though he did not take his temperature. His last admission was 12/13/17 to 12/24/17 for the same foot wound. At that time, the wound was debrided by Dr. Walker on 12/18/17 and a wound VAC was placed. He was discharged with the wound VAC, which was removed 2 weeks ago. He denies any symptoms characteristic of rest pain or claudication. He has undergone amputation of the right foot. The patient report smoking up to 1/2 pack of cigarettes when he is "stressed" in addition to "vaping". PAST MEDICAL HISTORY: Type 2 diabetes Peripheral vascular disease PTSD/Asperger's syndrome, Hypertension. He was on dialysis for a brief time due to AIN from cefepime. His renal function has since recovered. SOCIAL HISTORY: He is currently living with his friend, Millie, although he does have his own condo. He smokes several cigarettes per day. He only occasionally drinks alcohol. His last drink was for the Super Bowl and he uses no other illicit drugs. REVIEW OF SYSTEMS: Positive for a nonproductive cough, subjective fevers, and chills. He denies diarrhea, dysuria, chest pain, shortness of breath, orthopnea. Physical Examination: Selected Entries 01/24/18 01/24/18 01/24/18 07:19 07:47 08:47 Temperature 97.4 F Pulse Rate 77 Respiratory 18 Rate Blood Pressure 155/94 (mmHg) Blood Pressure 130 Mean O2 Sat by Pulse 93 Oximetry NAD, AAO x 3 CTAB RRR, S1/S2 Abodmen is soft, NT 2+ pulses palpated at the bilateral THERMITE WELDER and popliteal arteries 1+ pulse at the left DPA Cannot readily palpate left TRIAL CONSULTANT Muscular function is grossly intact left leg No sensation to light touch over left foot Medial left foot is dressed with sterile gauze Relevant Imaging: Patient Name: BRIANNA GILLIS Medical Record#: [id number] Ordering Physician: Patsy BOLAÑOS Acct.#: [id number] : 1960 Age: 57 Sex: M Location: [address] [place] [address] MEDICAL Exam Date: 01/23/181551 ADM Status: ADM IN Order Information: VL LOWER EXT ART DUPLEX LEFT Accession Number: [id number] CPT: 64981 INDICATION: Medial mid foot wound in a patient suspected of having diabetic vasculopathy COMPARISON: None. TECHNIQUE: Mahoney scale, color Doppler, and spectral analysis utilized to image the left lower extremity arteries. Flow velocities were determined at each visualized artery. REPORT: The left common femoral artery, proximal femoral profundus, superficial femoral artery, popliteal artery and infrapopliteal arteries exhibit patency. There is mildly increased flow velocity measured at the left common femoral artery measuring 140 cm/s. This is within one standard deviation of the mean flow velocity expected at this artery. Increased flow velocity is recorded at the superficial femoral artery extending into the popliteal artery but there is no substantial focal increased relative to a more proximal arterial segment. According to the loan review officer image 22 of 25 is erroneously labeled "Left TRIAL CONSULTANT Distal" and should be labeled dorsalis pedis. There is increased flow velocity measurement of the dorsalis pedis measuring 202 cm/s IMPRESSION: 1. Although there is in-line flow recorded from the left common femoral artery through the distal TRIAL CONSULTANT and dorsalis pedis arteries in the proximal foot, there are mildly increased velocities recorded at the left common femoral artery and superficial femoral artery that extended to the popliteal artery. 2. The flow velocity and increased in velocity measured at the dorsalis pedis artery indicates approximately 50% degree stenosis. Labs: Laboratory Tests 01/24/18 01/24/18 08:27 08:27 WBC 11.7 H RBC 4.46 Hgb 10.6 L Hct 32 L Plt Count 364 BUN 17 Creatinine 1.07 Est GFR ( Amer) 92.3 Est GFR (Non-Af Amer) 71.8 Assessment: 57 year old diabetic with septic left foot partially related to micro-arterial disease characteristic of diabetes. He is about to undergo left foot amputation. Arterial duplex shows multi-level mild stenoses in the LLE, but no focal occlusion. Plan/Recommendation: 1. If the patient fails to heal today's surgical wound then arteriography will be considered. 2. The patient was encouraged to stop smoking to promote surgical wound healing and reduce the liklihood of future amputations.
[2018-01-24] MEDS ORDERED: fentaNYL* 50 MCG/ML 2 ML VIAL (100 MCG VIAL) ONE (09:20)
[2018-01-24] MEDS ORDERED: Midazolam* 1 MG/ML 2 ML VIAL (2 MG) ONE (09:20)
[2018-01-24] MEDS ORDERED: Famotidine IV* 10 MG/ML 2 ML (20 mg) ONE ×2 (09:46→10:08)
[2018-01-24] MEDS ORDERED: Bupivacaine 0.25% SDV* 30 ML ONE (09:48)
[2018-01-24] MEDS ORDERED: Acetaminophen TAB* 325 MG PO PRN (09:52)
[2018-01-24] MEDS ORDERED: DiMENhydriNATE IV* 50 MG/ML VIAL IV PUSH PRN (09:52)
[2018-01-24] MEDS ORDERED: PROCHLORPERAZINE INJ 5 MG/ML 2 ML VIAL IV PRN (09:52)
[2018-01-24] MEDS ORDERED: Levalbuterol 0.63MG/3ML NEB* UNIT OF USE INH PRN (09:52)
[2018-01-24] MEDS ORDERED: Naloxone* 0.4 MG/ML 1 ML VIAL IV PRN (09:52)
[2018-01-24] MEDS ORDERED: fentaNYL* 50 MCG/ML 2 ML VIAL (100 MCG VIAL) IV PRN (09:52)
--- NOTE | 2018-01-24 09:52 | PN ---
Subjective Date of Service: 01/24/18 Interval History: Pt seen in PACU, planned left TMA with Dr. Canales later today. Without complaint. Denises Chest pain, SOB, abdominal pain. BM this AM. Objective Active Medications: Al Hydrox/Mg Hydrox/Simethicone (Maalox Plus*) 30 ml PO Q6H PRN PRN Reason: INDIGESTION Amlodipine Besylate (Norvasc Tab*) 5 mg PO DAILY [facility] Last Admin: 01/24/18 08:04 Dose: 5 mg Dextrose (D50w Syringe 50 Ml*) 12.5 gm IV PUSH .FOR FS < 60 - SS PRN PRN Reason: FS < 60 Fluoxetine HCl (Prozac Cap*) 40 mg PO DAILY [facility] Last Admin: 01/24/18 08:04 Dose: 40 mg Piperacillin Sod/Tazobactam (Sod 3.375 gm/ Sodium Chloride) 100 mls @ 25 mls/ hr IVPB Q8H [facility] Last Admin: 01/24/18 02:25 Dose: 25 mls/hr Lactated Ringer's (Lactated Ringers 1000 Ml Bag*) 1,000 mls @ 125 mls/hr IV PER RATE [facility] Insulin Glargine (Lantus(*)) 58 units SUBCUT Q24HR@2200 [facility] Last Admin: 01/23/18 21:33 Dose: 58 units Insulin Human Lispro (Humalog*) 15 units SUBCUT TID AC [facility] Last Admin: 01/24/18 08:03 Dose: 15 units Iron/Vitamin C (Vitron-C (Nf)) 1 tab PO DAILY [facility] Last Admin: 01/24/18 08:05 Dose: Not Given Lidocaine/Sodium Bicarbonate (Buffered Lidocaine 0.9% Syrin*) 0.2 ml INTRADERM ONCE ONE Stop: 01/24/18 08:50 Lisinopril (Prinivil Tab*) 10 mg PO DAILY [facility] Last Admin: 01/24/18 08:04 Dose: 10 mg Melatonin (Melatonin (Nf)) 1 tab PO BEDTIME PRN PRN Reason: INSOMNIA Last Admin: 01/23/18 22:19 Dose: 1 tab Vital Signs - 8 hr 01/24/18 01/24/18 01/24/18 03:39 04:28 07:19 Temperature 97.5 F 97.4 F Pulse Rate 75 78 75 Respiratory 16 18 Rate Blood Pressure 176/80 170/78 174/85 (mmHg) O2 Sat by Pulse 88 91 92 Oximetry 01/24/18 01/24/18 07:47 08:47 Temperature Pulse Rate 77 Respiratory Rate Blood Pressure 155/94 (mmHg) O2 Sat by Pulse 93 Oximetry Oxygen Devices in Use Now: None Appearance: NAD Neck: NL Appearance and Movements; NL JVP, Trachea Midline Respiratory: Symmetrical Chest Expansion and Respiratory Effort, Clear to Auscultation Cardiovascular: NL Sounds; No Murmurs; No JVD, RRR, No Edema Abdominal: NL Sounds; No Tenderness; No Distention, - - obese Extremities: No Edema, - - left plantar midfoot with ~6x7cm ulceration. Neurological: Alert and Oriented x 3, NL Sensation Nutrition: Taking PO's Result Diagrams: 01/24/18 08:27 01/24/18 08:27 Additional Lab and Data: Laboratory Results - last 24 hr 01/23/18 01/23/18 01/23/18 12:02 17:12 20:47 WBC RBC Hgb Hct MCV MCH MCHC RDW Plt Count MPV Neut % (Auto) Lymph % (Auto) Lane % (Auto) Eos % (Auto) Baso % (Auto) Absolute Neuts (auto) Absolute Lymphs (auto) Absolute Monos (auto) Absolute Eos (auto) Absolute Basos (auto) Absolute Nucleated RBC Nucleated RBC % INR (Anticoag Therapy) Sodium Potassium Chloride Carbon Dioxide Anion Gap BUN Creatinine Est GFR ( Amer) Est GFR (Non-Af Amer) BUN/Creatinine Ratio Glucose POC Glucose (mg/dL) 153 H 142 H 155 H Calcium 01/24/18 01/24/18 01/24/18 07:57 08:27 08:27 WBC 11.7 H RBC 4.46 Hgb 10.6 L Hct 32 L MCV 73 L MCH 24 L MCHC 33 RDW 20 H Plt Count 364 MPV 6.7 L Neut % (Auto) 77.1 Lymph % (Auto) 10.[address] % (Auto) 7.9 H Eos % (Auto) 3.3 Baso % (Auto) 0.8 Absolute Neuts (auto) 9.0 H Absolute Lymphs (auto) 1.3 Absolute Monos (auto) 0.9 H Absolute Eos (auto) 0.4 Absolute Basos (auto) 0.1 Absolute Nucleated RBC 0 Nucleated RBC % 0 INR (Anticoag Therapy) 1.19 H Sodium Potassium Chloride Carbon Dioxide Anion Gap BUN Creatinine Est GFR ( Amer) Est GFR (Non-Af Amer) BUN/Creatinine Ratio Glucose POC Glucose (mg/dL) 148 H Calcium 01/24/18 08:27 WBC RBC Hgb Hct MCV MCH MCHC RDW Plt Count MPV Neut % (Auto) Lymph % (Auto) Lane % (Auto) Eos % (Auto) Baso % (Auto) Absolute Neuts (auto) Absolute Lymphs (auto) Absolute Monos (auto) Absolute Eos (auto) Absolute Basos (auto) Absolute Nucleated RBC Nucleated RBC % INR (Anticoag Therapy) Sodium 134 L Potassium 4.4 Chloride 101 Carbon Dioxide 27 Anion Gap 6 BUN 17 Creatinine 1.07 Est GFR ( Amer) 92.3 Est GFR (Non-Af Amer) 71.8 BUN/Creatinine Ratio 15.9 Glucose 132 H POC Glucose (mg/dL) Calcium 9.1 Microbiology and Other Data: Microbiology 01/22/18 13:03 Blood Venous Aerobic Blood Culture - Preliminary No Growth Day 1 01/22/18 13:03 Blood Venous Anaerobic Blood Culture - Preliminary No Growth Day 1 01/22/18 13:00 Blood Venous Aerobic Blood Culture - Preliminary No Growth Day 1 01/22/18 13:00 Blood Venous Anaerobic Blood Culture - Preliminary No Growth Day 1 01/22/18 14:18 Urine Urine Culture - Final No Growth (<1,000 CFU/mL) 01/23/18 11:00 Foot Left Gram Stain - Final Assess/Plan/Problems-Billing Assessment: 57 yo male with IDDM p/w nonhealing left diabetic foot ulcer. planned transmetatarsal amputation. Medically cleared. On zosyn. - Patient Problems (1) Non-healing ulcer of left foot Current Visit: No Status: Acute Code(s): L97.529 - NON-PRESSURE CHRONIC ULCER OTH PRT LEFT FOOT W UNSP SEVERITY SNOMED Code(s): 977949026 Comment: continue zosyn. Had failed outpatient levaquin (though missed a week ) + flagyl appreciete ID and ortho recs. planned OR 01/[address] Canales. f/u Dr. Griffin recs for his suspected stenosis ~50% at level of dorsalis pedis based on arterial US. PT ordered for after surgery. may need SNF given this will be b/l TMAs. 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 (6) PVD (peripheral vascular disease) Current Visit: No Status: Chronic Code(s): I73.9 - PERIPHERAL VASCULAR DISEASE, UNSPECIFIED SNOMED Code(s): 270170802 Comment: - With associated neuropathy (7) Full code status Current Visit: No Status: Acute Code(s): Z78.9 - OTHER SPECIFIED HEALTH STATUS SNOMED Code(s): 705305600 Status and Disposition: medicine inpatient.
[2018-01-24] MEDS ORDERED: Lidocaine 2% PF * 5 ML VIAL ONE (09:57)
[2018-01-24] MEDS ORDERED: Propofol* 10 MG/ML 20 ML BTL IV PUSH ONE (10:08)
[2018-01-24] MEDS ORDERED: Dexamethasone IV* 4 MG/ML 1 ML (4 MG) ONE (10:08)
[2018-01-24] MEDS ORDERED: ceFAZolin 1 GM VIAL(*) ONE (10:08)
[2018-01-24] MEDS ORDERED: EPHEDrine (Pressors)* 50 MG/ML VIAL ONE (10:27)
--- NOTE | 2018-01-24 12:01 | PN ---
Progress Note - Progress Note Date of Service: 01/24/18 Note: Main is a 57-year-old man with diabetic neuropathy. I was asked to help with his care by my colleague, Dr. Walker. Seng has a diabetic foot ulcer with underlying osteomyelitis. He previously underwent an irrigation and debridement and placement of a VAC, by Dr. Walker. Unfortunately, the infection has worsened. Dr. Walker and I both saw him this morning and discussed options with him. I discussed limb salvage I&D, antibiotics versus a hindfoot amputation. He reported to me that he had already discussed this with Dr. Walker and had decided on the hindfoot amputation. We did again discuss the risks/benefits and pros/cons of both options, and he again expressed his desire to move forward with the hindfoot amputation. Given the extent of the ulcer and the underlying osteomyelitis, I think this is a very reasonable decision. Therefore, we will plan to move forward with a hindfoot amputation, tendon transfers, Achilles tenotomy today. All of his questions were answered. Teddy Canales MD
--- NOTE | 2018-01-24 12:08 | OP ---
Operative Report - Blank - Operative Report Date of Operation: 01/24/18 Note: PATIENT: Main Maldonado DATE OF : 1960 DATE OF SURGERY: 01/24/2018 SURGEON: Teddy Canales MD CLERICAL METHODS ANALYST: MIKY Gutiérrez, whos assistance was necessary for positioning, retraction, help with instrumentation, and closure. ANESTHESIOLOGIST: Dr. Suero PREOPERATIVE DIAGNOSIS: Left foot diabetic ulcer, infection and underlying osteomyelitis POSTOPERATIVE DIAGNOSIS: Left foot diabetic ulcer, infection and underlying osteomyelitis OPERATION: 1. Left foot transtarsal (Chopart) amputation 2. Left tibialis anterior tendon transfer 3. Left peroneus brevis tendon transfer 4. Left percutaneous Achilles tenotomy ANESTHESIA: GETA IMPLANTS: none TOURNIQUET TIME: Less than 2 hours with a well-padded calf tourniquet at 250mmHg. SPECIMENS: Foot sent to pathology ESTIMATED BLOOD LOSS: minimal COMPLICATIONS: none STATUS: Stable from the operating room to the recovery room and then back to the hospital floor. INDICATIONS FOR PROCEDURE: Main has had a persistent diabetic foot ulcer with underlying osteomyelitis, refractory to prior I&D and antibiotic treatment. Both operative and non operative treatment alternatives were reviewed. Further, the nature and risks of surgery were reviewed in careful detail. Our discussions regarding the risks of surgery included, but were not limited to, persistent or worsening infection , wound problems, nerve injury, neuroma, RSD, persistent symptoms, blood clot, phantom limb pain, failure of the surgery, need for further amputation, and even the remote chance of catastrophic complication, including loss of limbo or . DESCRIPTION OF PROCEDURE: The patient was seen in the preoperative holding unit and informed written consent was obtained. The appropriate extremity was marked. The patient was then brought to the operating room and carefully positioned on the operating room table. Anesthesia was induced. All bony prominences were padded with great care. A chlorhexidine based pre-scrub was performed followed by a chloraprep prep and drape in standard sterile fashion. A surgical safety pause was then conducted in which we confirmed the appropriate patient, extremity, planned procedure, availability of equipment, indication and administration of prophylactic antibiotics, and DVT prophylaxis in the form of a compression boot on the non-surgical extremity. We began with Esmarch exsanguination of the limb, avoiding the involved foot, and inflated the well-padded calf tourniquet. I first ellipsed out the plantar medial ulcer with a 10-blade scalpel. I then made a fishmouthed incision at the level of the metatarsals to make sure to provide enough skin for closure. I dissected down through the dorsal and lateral foot to define the tibialis anterior and peroneus brevis tendons. These were dissected out, incised at their distal insertion, and tagged for later transfer. I then identified the neurovascular bundles. The vessels were carefully tied off and the nerves were transected proximally in the soft tissue. Tendons (except the tibialis anterior and peroneus brevis) were transected. I then sharply dissected down to the transtarsal joints. The mid and forefoot were then amputated at the level of the transtarsal (Chopart) joints. The foot was sent to pathology. The tibialis anterior tendon was then transferred to the neck of the talus. The tendon was sized and an appropriately sized diameter drill hole was made into the neck of the talus. The ankle was held in a neutral position and the tendon was passed transosseously through the drill hole and secured with #1 vicryl sutures. The peroneus brevis was then transferred to the anterior calcaneus. The tendon was sized and an appropriately sized diameter drill hole was made into the anterior calcaneus. The ankle was held in a neutral position and the tendon was passed transosseously through the drill hole and secured with #1 vicryl sutures. I then turned my attention to the Achilles tendon to prevent a progressive equinus contracture. I performed a percutaneous tenotomy of the midsubstance of the Achilles tendon utilizing a 15-blade scalpel. The ankle was then dorsiflexed confirming that the Achilles had been fully transected. At this point, the tourniquet was deflated. Hemostasis was obtained. We irrigated copiously. All remaining tissue appeared healthy and viable. I trimmed the skin to aid in the closure. A Thor drain was placed. We closed meticulously in layers utilizing #1 Vicryl for the deep layer, 3-0 Monocryl for the subdermal layer, and 3-0 nylon for the skin. A sterile dressing was then applied followed by a splint with the ankle in neutral alignment. The patient was then awakened from anesthesia and transferred to the recovery room in stable condition. There were no complications. All needle and sponge counts were correct at the end of the case. ATTESTATION: I attest I was present and scrubbed and performed the critical portions of the procedure myself. POSTOPERATIVE PLAN: The patient will remain [id number] in the splint and will follow up will be in two weeks for a wound check, but we will likely leave the sutures in for 3-4 weeks. Antibiotic treatment will be guided by the infectious disease service. The drain will be pulled either postop day 1 or 2, depending on output.
[2018-01-24] MEDS: Gabapentin CAP(*) 100 MG PO SCH ×2 (15:45→22:42)
[2018-01-24] MEDS: traMADol TAB* 50 MG PO PRN (15:46)
[2018-01-24] MEDS: Insulin GLARGINE(*) 1 UNITS UNIT SUBCUT SCH (22:39)
[2018-01-25] MEDS: Piperacillin/Tazobac ADVAN(*) 3.375 GM in NS 0.9% 100 ML* 100 ML IVPB SCH ×3 (05:56→21:31)
[2018-01-25 08:48] LABS: ABS Basophils 0.1 10^3/ul (0-0.2); ABS Eosinophils 0.1 10^3/ul (0-0.6); ABS Lymphocytes 1.4 10^3/ul (1.0-4.8); ABS Monocytes 1.3 10^3/ul (0-0.8); ABS Neutrophils 10.6 10^3/ul (1.5-7.7); ABS Nucleated RBC 0 10^3/ul; Eosinophil % 1.1 % (0-6); Hematocrit 31 % (42-52); Hemoglobin 10.1 g/dl (14.0-18.0); Lymphocyte % 10.6 % (25-47); Mean Corpuscular HGB Conc 33 g/dl (31-36); Mean Corpuscular Hemoglobin 24 pg (27-31); Mean Corpuscular Volume 72 fL (80-94); Mean Platelet Volume 6.8 um3 (7.4-10.4); Nucleated Red Blood Cells % 0.1; Platelet Count 369 10^3/ul (150-450); Red Blood Count 4.29 10^6/ul (4.0-5.4); Red Cell Distribution Width 20 % (10.5-15); White Blood Count 13.5 10^3/ul (3.5-10.8)
[2018-01-25 09:06] LABS: EGFR Non-African American 68.1 (>60)
[2018-01-25] MEDS: amLODIPine TAB* 5 MG PO SCH (09:09)
[2018-01-25] MEDS: Lisinopril TAB* 10 MG PO SCH (09:10)
[2018-01-25] MEDS: Insulin LISPRO* 1 UNITS UNIT SUBCUT SCH ×3 (09:10→18:03)
[2018-01-25] MEDS: Gabapentin CAP(*) 100 MG PO SCH ×2 (09:10→21:30)
[2018-01-25] MEDS: FLUoxetine CAP* 20 MG PO SCH (09:10)
[2018-01-25] MEDS: IRON VITAMIN C PO SCH (09:12)
[2018-01-25] MEDS: traMADol TAB* 50 MG PO PRN (10:28)
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
--- NOTE | 2018-01-25 14:24 | PN ---
Progress Note - Progress Note Date of Service: 01/25/18 SOAP: Subjective: CC: foot wound HPI: 57 year old man with left foot abscess, recent I&D; wound failed to heal; had amputation 10/27 which he tolerated well. No fever, rash, or diarrhea. Objective: Vital Signs Temp 36.7 C 01/25/18 11:07 Pulse 74 01/25/18 11:07 Resp 16 01/25/18 12:51 BP 140/65 01/25/18 11:07 Pulse Ox 95 01/25/18 11:07 Intake & Output 01/24/18 01/25/18 01/25/18 18:59 06:59 18:59 Intake Total 1265 360 Output Total 1550 1660 1200 Balance -285 -1300 -1200 Intake: IV Fluids 800 LR 750 NS 100ML, Cefazolin 2G 50 Oral 465 360 Output: JOEL #1 50 10 Urine 1500 1650 1200 Other: # Voids 1 Gen:awake,no distress HEENT:no thrush Heart:RRR no murmur Lungs:CTA BL Abd:+BS NTND soft Skin: no rash MSK: left foot casted/drain Laboratory Results - last 24 hr 01/24/18 01/24/18 01/25/18 16:36 22:27 07:47 WBC RBC Hgb Hct MCV MCH MCHC RDW Plt Count MPV Neut % (Auto) Lymph % (Auto) Whitley % (Auto) Eos % (Auto) Baso % (Auto) Absolute Neuts (auto) Absolute Lymphs (auto) Absolute Monos (auto) Absolute Eos (auto) Absolute Basos (auto) Absolute Nucleated RBC Nucleated RBC % Sodium Potassium Chloride Carbon Dioxide Anion Gap BUN Creatinine Est GFR ( Amer) Est GFR (Non-Af Amer) BUN/Creatinine Ratio Glucose POC Glucose (mg/dL) 287 H 246 H 245 H Calcium 01/25/18 01/25/18 01/25/18 08:39 08:39 11:25 WBC 13.5 H RBC 4.29 Hgb 10.1 L Hct 31 L MCV 72 L MCH 24 L MCHC 33 RDW 20 H Plt Count 369 MPV 6.8 L Neut % (Auto) 78.1 Lymph % (Auto) 10.6 L Whitley % (Auto) 9.4 H Eos % (Auto) 1.1 Baso % (Auto) 0.8 Absolute Neuts (auto) 10.6 H Absolute Lymphs (auto) 1.4 Absolute Monos (auto) 1.3 H Absolute Eos (auto) 0.1 Absolute Basos (auto) 0.1 Absolute Nucleated RBC 0 Nucleated RBC % 0.1 Sodium 134 L Potassium 4.2 Chloride 99 L Carbon Dioxide 29 Anion Gap 6 BUN 18 Creatinine 1.12 Est GFR ( Amer) 87.5 Est GFR (Non-Af Amer) 68.1 BUN/Creatinine Ratio 16.1 Glucose 208 H POC Glucose (mg/dL) 168 H Calcium 9.0 Assessment: 1. polymicrobial acute osteomyelitis left midfoot s/p amputation 2. diabetes with hyperglycemia and neuropathy 3. morbid obesity Plan: 1. conitnue zosyn; will plan on 4-6 weeks; weekly cbc, cmp, crp.
[2018-01-25] MEDS ORDERED: CMCS: Melatonin (NF) 3 MG TAB PO PRN (15:00)
--- NOTE | 2018-01-25 18:56 | PN ---
Subjective Date of Service: 01/25/18 Interval History: AF HDS some phantom limb pain. tramadol and gabapentin not that helpful. cornybacterium on cx 01/23. worked with PT. left [place] within hours in 2013 when placed with a roommate that was not oriented. Objective Active Medications: Acetaminophen (Tylenol Tab*) 650 mg PO Q6H PRN PRN Reason: PAIN Al Hydrox/Mg Hydrox/Simethicone (Maalox Plus*) 30 ml PO Q6H PRN PRN Reason: INDIGESTION Amlodipine Besylate (Norvasc Tab*) 10 mg PO DAILY [facility] Last Admin: 01/25/18 09:09 Dose: 10 mg Dextrose (D50w Syringe 50 Ml*) 12.5 gm IV PUSH .FOR FS < 60 - SS PRN PRN Reason: FS < 60 Fluoxetine HCl (Prozac Cap*) 40 mg PO DAILY [facility] Last Admin: 01/25/18 09:10 Dose: 40 mg Gabapentin (Neurontin Cap(*)) 100 mg PO BID [facility] Last Admin: 01/25/18 09:10 Dose: 100 mg Heparin Sodium (Porcine) (Heparin Vial(*)) 5,000 units SUBCUT Q8HR [facility] Lactated Ringer's (Lactated Ringers 1000 Ml Bag*) 1,000 mls @ 125 mls/hr IV PER RATE [facility] Piperacillin Sod/Tazobactam (Sod 3.375 gm/ Sodium Chloride) 100 mls @ 25 mls/ hr IVPB 0530,1330,2130 [facility] Last Admin: 01/25/18 13:58 Dose: 25 mls/hr Insulin Glargine (Lantus(*)) 58 units SUBCUT Q24HR@2200 [facility] Last Admin: 01/24/18 22:39 Dose: 58 units Insulin Human Lispro (Humalog*) 15 units SUBCUT TID AC [facility] Last Admin: 01/25/18 18:03 Dose: 15 units Iron/Vitamin C (Vitron-C (Nf)) 1 tab PO DAILY [facility] Last Admin: 01/25/18 09:12 Dose: Not Given Lisinopril (Prinivil Tab*) 10 mg PO DAILY [facility] Last Admin: 01/25/18 09:10 Dose: 10 mg Melatonin (Melatonin (Nf)) 1 mg PO BEDTIME PRN PRN Reason: INSOMNIA Tramadol HCl (Ultram*) 50 mg PO Q6H PRN PRN Reason: PAIN Last Admin: 01/25/18 10:28 Dose: 50 mg Vital Signs - 8 hr 01/25/18 01/25/18 01/25/18 11:07 12:51 15:48 Temperature 98.1 F 97.9 F Pulse Rate 74 76 Respiratory 18 16 16 Rate Blood Pressure 140/65 161/68 (mmHg) O2 Sat by Pulse 95 92 Oximetry 01/25/18 16:00 Temperature Pulse Rate Respiratory Rate Blood Pressure (mmHg) O2 Sat by Pulse 92 Oximetry Oxygen Devices in Use Now: Nasal Cannula Appearance: NAD Eyes: No Scleral Icterus, PERRLA Ears/Nose/Mouth/Throat: NL Teeth, Lips, Gums, Mucous Membranes Moist Respiratory: Symmetrical Chest Expansion and Respiratory Effort, Clear to Auscultation Cardiovascular: NL Sounds; No Murmurs; No JVD, RRR Abdominal: NL Sounds; No Tenderness; No Distention, - - obese Extremities: No Edema, - - s/p right TMA, now s/p left TMA, wrapped in ACEI, blood in JOEL drain. Neurological: Alert and Oriented x 3, NL Muscle Strength and Tone Nutrition: Taking PO's Result Diagrams: 01/25/18 08:39 01/25/18 08:39 Additional Lab and Data: Laboratory Results - last 24 hr 01/24/18 01/24/18 01/25/18 16:36 22:27 07:47 WBC RBC Hgb Hct MCV MCH MCHC RDW Plt Count MPV Neut % (Auto) Lymph % (Auto) [place] % (Auto) Eos % (Auto) Baso % (Auto) Absolute Neuts (auto) Absolute Lymphs (auto) Absolute Monos (auto) Absolute Eos (auto) Absolute Basos (auto) Absolute Nucleated RBC Nucleated RBC % Sodium Potassium Chloride Carbon Dioxide Anion Gap BUN Creatinine Est GFR ( Amer) Est GFR (Non-Af Amer) BUN/Creatinine Ratio Glucose POC Glucose (mg/dL) 287 H 246 H 245 H Calcium 01/25/18 01/25/18 01/25/18 08:39 08:39 11:25 WBC 13.5 H RBC 4.29 Hgb 10.1 L Hct 31 L MCV 72 L MCH 24 L MCHC 33 RDW 20 H Plt Count 369 MPV 6.8 L Neut % (Auto) 78.1 Lymph % (Auto) 10.6 L [place] % (Auto) 9.4 H Eos % (Auto) 1.1 Baso % (Auto) 0.8 Absolute Neuts (auto) 10.6 H Absolute Lymphs (auto) 1.4 Absolute Monos (auto) 1.3 H Absolute Eos (auto) 0.1 Absolute Basos (auto) 0.1 Absolute Nucleated RBC 0 Nucleated RBC % 0.1 Sodium 134 L Potassium 4.2 Chloride 99 L Carbon Dioxide 29 Anion Gap 6 BUN 18 Creatinine 1.12 Est GFR ( Amer) 87.5 Est GFR (Non-Af Amer) 68.1 BUN/Creatinine Ratio 16.1 Glucose 208 H POC Glucose (mg/dL) 168 H Calcium 9.0 01/25/18 17:10 WBC RBC Hgb Hct MCV MCH MCHC RDW Plt Count MPV Neut % (Auto) Lymph % (Auto) [place] % (Auto) Eos % (Auto) Baso % (Auto) Absolute Neuts (auto) Absolute Lymphs (auto) Absolute Monos (auto) Absolute Eos (auto) Absolute Basos (auto) Absolute Nucleated RBC Nucleated RBC % Sodium Potassium Chloride Carbon Dioxide Anion Gap BUN Creatinine Est GFR ( Amer) Est GFR (Non-Af Amer) BUN/Creatinine Ratio Glucose POC Glucose (mg/dL) 130 H Calcium Microbiology and Other Data: Microbiology 01/22/18 13:03 Blood Venous Aerobic Blood Culture - Preliminary No Growth Day 3 01/22/18 13:03 Blood Venous Anaerobic Blood Culture - Preliminary No Growth Day 3 01/22/18 13:00 Blood Venous Aerobic Blood Culture - Preliminary No Growth Day 3 01/22/18 13:00 Blood Venous Anaerobic Blood Culture - Preliminary No Growth Day 3 01/23/18 11:00 Foot Left Gram Stain - Final 01/23/18 11:00 Foot Left Wound Culture - Final Corynebacterium Amycolatum 01/22/18 14:18 Urine Urine Culture - Final No Growth (<1,000 CFU/mL) Assess/Plan/Problems-Billing Assessment: 57 yo male with IDDM p/w nonhealing left diabetic foot ulcer. s/p transmetatarsal amputation 01/24. On zosyn, planned 4-6 weeks. - Patient Problems (1) Non-healing ulcer of left foot Current Visit: No Status: Acute Code(s): L97.529 - NON-PRESSURE CHRONIC ULCER OTH PRT LEFT FOOT W UNSP SEVERITY SNOMED Code(s): 598113799 Comment: continue zosyn. Had failed outpatient levaquin (though missed a week ) + flagyl appreciete ID and ortho recs. s/p TMA 01/[address] Canales. suspected stenosis ~50% at level of dorsalis pedis based on arterial US. Consider ateriography if delayed wound healing. PT casting after swelling goes down. 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 (6) PVD (peripheral vascular disease) Current Visit: No Status: Chronic Code(s): I73.9 - PERIPHERAL VASCULAR DISEASE, UNSPECIFIED SNOMED Code(s): 013015310 Comment: - With associated neuropathy (7) Full code status Current Visit: No Status: Acute Code(s): Z78.9 - OTHER SPECIFIED HEALTH STATUS SNOMED Code(s): 116718894 Status and Disposition: medicine inpatient.
[2018-01-25] MEDS ORDERED: NS 0.9% 100 ML* 100 ML ONE (21:26)
[2018-01-25] MEDS: Acetaminophen TAB* 325 MG PO PRN (21:29)
[2018-01-25] MEDS: Heparin VIAL(*) 5000 UNITS/ML VIAL (FIVE THOUSAND) SUBCUT SCH (21:29)
[2018-01-25] MEDS: Insulin GLARGINE(*) 1 UNITS UNIT SUBCUT SCH (22:05)
[2018-01-26] MEDS ORDERED: NS 0.9% 100 ML* 100 ML ONE (05:42)
[2018-01-26] MEDS: Piperacillin/Tazobac ADVAN(*) 3.375 GM in NS 0.9% 100 ML* 100 ML IVPB SCH ×3 (05:47→21:56)
[2018-01-26] MEDS: Heparin VIAL(*) 5000 UNITS/ML VIAL (FIVE THOUSAND) SUBCUT SCH ×3 (05:48→21:55)
[2018-01-26] MEDS: Gabapentin CAP(*) 100 MG PO SCH ×2 (08:22→21:55)
[2018-01-26] MEDS: FLUoxetine CAP* 20 MG PO SCH (08:22)
[2018-01-26] MEDS: Insulin LISPRO* 1 UNITS UNIT SUBCUT SCH ×3 (08:22→17:41)
[2018-01-26] MEDS: amLODIPine TAB* 5 MG PO SCH (08:22)
[2018-01-26] MEDS: Lisinopril TAB* 10 MG PO SCH (08:22)
[2018-01-26] MEDS: IRON VITAMIN C PO SCH (08:26)
--- NOTE | 2018-01-26 11:02 | PN ---
Progress Note - Progress Note Date of Service: 01/26/18 SOAP: Subjective: 57 y/o male s/p trastarsal amp by Dr. Canales 01/24. Patient overall feeling well, states has "phantom pain" but otherwise pain is managing well. He feels the drain is not draining anything. VSS, afebrile overnight. Objective: General- Well appearing, NAD, AO, resting in bed comfortably MSK- L LE- splint, marcos in place, JOEL drain not holding suction, drain was removed. Dressing is c/d/i no odor. no induration erythema above dressing Vital Signs Temp 97.3 F 01/26/18 07:30 Pulse 73 01/26/18 07:30 Resp 18 01/26/18 08:22 BP 168/77 01/26/18 07:30 Pulse Ox 92 01/26/18 07:30 Intake & Output 01/25/18 01/26/18 01/26/18 18:59 06:59 18:59 Intake Total 1100 480 Output Total 1650 2302 850 Balance -1650 -1202 -370 Intake: Oral 1100 480 Output: JOEL #1 200 2 Urine 1450 2300 850 Other: # Voids 1 Assessment: POD #1 57 y/o male s/p 1. Left foot transtarsal (Chopart) amputation 2. Left tibialis anterior tendon transfer 3. Left peroneus brevis tendon transfer 4. Left percutaneous Achilles tenotomy Plan: - DVT prophylaxis- per hospitalists - Continue PT/ OT - Follow up with Dr. Canales within 1-2 weeks post-op, sutures removed at 3-4 weeks - H&H - Stable - post-op IV ABX - Zosyn, per ID, likely 4-6 week course. - Non-weight bearing L LE - Dr. Canales will cast leg after post-op swelling decreases
--- NOTE | 2018-01-26 13:58 | PN ---
Subjective Date of Service: 01/26/18 Interval History: reports occasional phantom pain to left foot stump during the night, Denies chest pain or shortness of breath. Denies abd pain ,n/v/d. sensation intact to left thigh, warm to touch, no pain currently on exam. Family History: Unchanged from Admission Social History: Unchanged from Admission Past Medical History: Unchanged from Admission Objective Active Medications: Acetaminophen (Tylenol Tab*) 650 mg PO Q6H PRN PRN Reason: PAIN Last Admin: 01/25/18 21:29 Dose: 650 mg Al Hydrox/Mg Hydrox/Simethicone (Maalox Plus*) 30 ml PO Q6H PRN PRN Reason: INDIGESTION Amlodipine Besylate (Norvasc Tab*) 10 mg PO DAILY [facility] Last Admin: 01/26/18 08:22 Dose: 10 mg Dextrose (D50w Syringe 50 Ml*) 12.5 gm IV PUSH .FOR FS < 60 - SS PRN PRN Reason: FS < 60 Fluoxetine HCl (Prozac Cap*) 40 mg PO DAILY [facility] Last Admin: 01/26/18 08:22 Dose: 40 mg Gabapentin (Neurontin Cap(*)) 100 mg PO BID [facility] Last Admin: 01/26/18 08:22 Dose: 100 mg Heparin Sodium (Porcine) (Heparin Vial(*)) 5,000 units SUBCUT Q8HR [facility] Last Admin: 01/26/18 05:48 Dose: 5,000 units Lactated Ringer's (Lactated Ringers 1000 Ml Bag*) 1,000 mls @ 125 mls/hr IV PER RATE [facility] Piperacillin Sod/Tazobactam (Sod 3.375 gm/ Sodium Chloride) 100 mls @ 25 mls/ hr IVPB 0530,1330,2130 [facility] Last Admin: 01/26/18 13:40 Dose: 25 mls/hr Insulin Glargine (Lantus(*)) 58 units SUBCUT Q24HR@2200 [facility] Last Admin: 01/25/18 22:05 Dose: 58 units Insulin Human Lispro (Humalog*) 15 units SUBCUT TID AC [facility] Last Admin: 01/26/18 12:48 Dose: 15 units Iron/Vitamin C (Vitron-C (Nf)) 1 tab PO DAILY [facility] Last Admin: 01/26/18 08:26 Dose: Not Given Lisinopril (Prinivil Tab*) 10 mg PO DAILY [facility] Last Admin: 01/26/18 08:22 Dose: 10 mg Melatonin (Melatonin (Nf)) 1 mg PO BEDTIME PRN PRN Reason: INSOMNIA Tramadol HCl (Ultram*) 50 mg PO Q6H PRN PRN Reason: PAIN Last Admin: 01/25/18 10:28 Dose: 50 mg Vital Signs - 8 hr 01/26/18 01/26/18 01/26/18 07:23 07:30 08:22 Temperature 97.3 F Pulse Rate 73 Respiratory 18 18 18 Rate Blood Pressure 168/77 (mmHg) O2 Sat by Pulse 98 92 Oximetry 01/26/18 01/26/18 11:03 12:15 Temperature 97.8 F Pulse Rate 77 Respiratory 18 16 Rate Blood Pressure 137/68 (mmHg) O2 Sat by Pulse 96 Oximetry Oxygen Devices in Use Now: Nasal Cannula Appearance: appears comfortable resting in bed Eyes: No Scleral Icterus Ears/Nose/Mouth/Throat: Clear Oropharnyx, Mucous Membranes Moist Neck: NL Appearance and Movements; NL JVP, Trachea Midline Respiratory: Symmetrical Chest Expansion and Respiratory Effort, Clear to Auscultation Cardiovascular: NL Sounds; No Murmurs; No JVD, No Edema Abdominal: NL Sounds; No Tenderness; No Distention, - - obese soft Extremities: - - no clubbing or cyanosis to bilat upper ext. sensation intact to bilat lower legs, dressing intact to left lower leg. Skin: No Rash or Ulcers Neurological: Alert and Oriented x 3 Nutrition: Taking PO's Result Diagrams: 01/25/18 08:39 01/25/18 08:39 Additional Lab and Data: Laboratory Results - last 24 hr 01/24/18 01/24/18 01/25/18 16:36 22:27 07:47 WBC RBC Hgb Hct MCV MCH MCHC RDW Plt Count MPV Neut % (Auto) Lymph % (Auto) [place] % (Auto) Eos % (Auto) Baso % (Auto) Absolute Neuts (auto) Absolute Lymphs (auto) Absolute Monos (auto) Absolute Eos (auto) Absolute Basos (auto) Absolute Nucleated RBC Nucleated RBC % Sodium Potassium Chloride Carbon Dioxide Anion Gap BUN Creatinine Est GFR ( Amer) Est GFR (Non-Af Amer) BUN/Creatinine Ratio Glucose POC Glucose (mg/dL) 287 H 246 H 245 H Calcium 01/25/18 01/25/18 01/25/18 08:39 08:39 11:25 WBC 13.5 H RBC 4.29 Hgb 10.1 L Hct 31 L MCV 72 L MCH 24 L MCHC 33 RDW 20 H Plt Count 369 MPV 6.8 L Neut % (Auto) 78.1 Lymph % (Auto) 10.6 L [place] % (Auto) 9.4 H Eos % (Auto) 1.1 Baso % (Auto) 0.8 Absolute Neuts (auto) 10.6 H Absolute Lymphs (auto) 1.4 Absolute Monos (auto) 1.3 H Absolute Eos (auto) 0.1 Absolute Basos (auto) 0.1 Absolute Nucleated RBC 0 Nucleated RBC % 0.1 Sodium 134 L Potassium 4.2 Chloride 99 L Carbon Dioxide 29 Anion Gap 6 BUN 18 Creatinine 1.12 Est GFR ( Amer) 87.5 Est GFR (Non-Af Amer) 68.1 BUN/Creatinine Ratio 16.1 Glucose 208 H POC Glucose (mg/dL) 168 H Calcium 9.0 01/25/18 17:10 WBC RBC Hgb Hct MCV MCH MCHC RDW Plt Count MPV Neut % (Auto) Lymph % (Auto) [place] % (Auto) Eos % (Auto) Baso % (Auto) Absolute Neuts (auto) Absolute Lymphs (auto) Absolute Monos (auto) Absolute Eos (auto) Absolute Basos (auto) Absolute Nucleated RBC Nucleated RBC % Sodium Potassium Chloride Carbon Dioxide Anion Gap BUN Creatinine Est GFR ( Amer) Est GFR (Non-Af Amer) BUN/Creatinine Ratio Glucose POC Glucose (mg/dL) 130 H Calcium Microbiology and Other Data: Microbiology 01/22/18 13:03 Blood Venous Aerobic Blood Culture - Preliminary No Growth Day 3 01/22/18 13:03 Blood Venous Anaerobic Blood Culture - Preliminary No Growth Day 3 01/22/18 13:00 Blood Venous Aerobic Blood Culture - Preliminary No Growth Day 3 01/22/18 13:00 Blood Venous Anaerobic Blood Culture - Preliminary No Growth Day 3 01/23/18 11:00 Foot Left Gram Stain - Final 01/23/18 11:00 Foot Left Wound Culture - Final Corynebacterium Amycolatum 01/22/18 14:18 Urine Urine Culture - Final No Growth (<1,000 CFU/mL) Assess/Plan/Problems-Billing Assessment: 57 yo male with IDDM p/w nonhealing left diabetic foot ulcer. s/p transmetatarsal amputation 01/24. On zosyn, planned 4-6 weeks. 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 (5) PTSD (post-traumatic stress disorder) Current Visit: No Status: Chronic Code(s): F43.10 - POST-TRAUMATIC STRESS DISORDER, UNSPECIFIED SNOMED Code(s): 69335372 Comment: - Continue fluoxetine (6) PVD (peripheral vascular disease) Current Visit: No Status: Chronic Code(s): I73.9 - PERIPHERAL VASCULAR DISEASE, UNSPECIFIED SNOMED Code(s): 926252112 Comment: - With associated neuropathy - will continue gabapentin (7) DVT prophylaxis Current Visit: No Status: Acute Code(s): EAS6573 - SNOMED Code(s): 124038706 Comment: SQ heparin (8) Full code status Current Visit: No Status: Acute Code(s): Z78.9 - OTHER SPECIFIED HEALTH STATUS SNOMED Code(s): 765399983 Status and Disposition: medicine inpatient.
[2018-01-26] MEDS: traMADol TAB* 50 MG PO PRN (17:44)
[2018-01-26] MEDS: Insulin GLARGINE(*) 1 UNITS UNIT SUBCUT SCH (21:55)
[2018-01-27] MEDS: Heparin VIAL(*) 5000 UNITS/ML VIAL (FIVE THOUSAND) SUBCUT SCH ×3 (05:17→21:35)
[2018-01-27] MEDS: Piperacillin/Tazobac ADVAN(*) 3.375 GM in NS 0.9% 100 ML* 100 ML IVPB SCH ×3 (05:18→21:35)
[2018-01-27] MEDS: Insulin LISPRO* 1 UNITS UNIT SUBCUT SCH ×4 (09:07→17:23)
[2018-01-27] MEDS: Gabapentin CAP(*) 100 MG PO SCH ×2 (10:03→21:36)
[2018-01-27] MEDS: amLODIPine TAB* 5 MG PO SCH (10:04)
[2018-01-27] MEDS: Lisinopril TAB* 10 MG PO SCH (10:04)
[2018-01-27] MEDS: FLUoxetine CAP* 20 MG PO SCH (10:04)
[2018-01-27] MEDS: IRON VITAMIN C PO SCH (10:10)
--- NOTE | 2018-01-27 13:54 | PN ---
Progress Note - Progress Note Date of Service: 01/27/18 SOAP: Subjective: Pt is doing well. His pain is controlled. He denies N/T, F/C, CP, SOB or calf pain. VSS overnight Objective: PE- 57 y/o WDWM NAD A&Ox3, sitting comfortably in chair LLE- splint c/d/i, + F/E knee NT, proximal calf soft NT, NVI Vital Signs Temp Pulse Resp BP Pulse Ox 97.4 F 79 18 130/57 93 01/27/18 11:36 01/27/18 11:36 01/27/18 13:05 01/27/18 11:36 01/27/18 11:36 Laboratory Results - last 24 hr 01/26/18 01/26/18 01/27/18 17:00 21:45 07:34 POC Glucose (mg/dL) 139 H 137 H 107 H 01/27/18 11:48 POC Glucose (mg/dL) 119 H Assessment: POD #3 57 y/o male s/p 1. Left foot transtarsal (Chopart) amputation 2. Left tibialis anterior tendon transfer 3. Left peroneus brevis tendon transfer 4. Left percutaneous Achilles tenotomy Plan: - DVT prophylaxis- per hospitalists - Continue PT/ OT - NWB LLE - cont abx per ID likely 4-6 week course - Appreciate hosp input - Follow up with Dr. Canales within 10-14 days post-op, sutures removed at 3-4 weeks - Dr. Canales will cast leg after post-op swelling decreases - Dispo per hospitalists
--- NOTE | 2018-01-27 17:13 | PN ---
Subjective Date of Service: 01/27/18 Interval History: c/o occasional left phantom foot pain. denies chest pain or shortness of breath. Denies abd pain , n/v/d. splint intact to left lower leg, no thigh or calf pain. left leg warm to touch. Family History: Unchanged from Admission Social History: Unchanged from Admission Past Medical History: Unchanged from Admission Objective Active Medications: Acetaminophen (Tylenol Tab*) 650 mg PO Q6H PRN PRN Reason: PAIN Last Admin: 01/25/18 21:29 Dose: 650 mg Al Hydrox/Mg Hydrox/Simethicone (Maalox Plus*) 30 ml PO Q6H PRN PRN Reason: INDIGESTION Amlodipine Besylate (Norvasc Tab*) 10 mg PO DAILY [facility] Last Admin: 01/27/18 10:04 Dose: 10 mg Dextrose (D50w Syringe 50 Ml*) 12.5 gm IV PUSH .FOR FS < 60 - SS PRN PRN Reason: FS < 60 Fluoxetine HCl (Prozac Cap*) 40 mg PO DAILY [facility] Last Admin: 01/27/18 10:04 Dose: 40 mg Gabapentin (Neurontin Cap(*)) 100 mg PO BID [facility] Last Admin: 01/27/18 10:03 Dose: 100 mg Heparin Sodium (Porcine) (Heparin Vial(*)) 5,000 units SUBCUT Q8HR [facility] Last Admin: 01/27/18 14:01 Dose: 5,000 units Piperacillin Sod/Tazobactam (Sod 3.375 gm/ Sodium Chloride) 100 mls @ 25 mls/ hr IVPB 0530,1330,2130 [facility] Last Admin: 01/27/18 13:10 Dose: 25 mls/hr Insulin Glargine (Lantus(*)) 58 units SUBCUT Q24HR@2200 [facility] Last Admin: 01/26/18 21:55 Dose: 58 units Insulin Human Lispro (Humalog*) 15 units SUBCUT TID [facility] Last Admin: 01/27/18 13:04 Dose: 15 units Iron/Vitamin C (Vitron-C (Nf)) 1 tab PO DAILY [facility] Last Admin: 01/27/18 10:10 Dose: Not Given Lisinopril (Prinivil Tab*) 10 mg PO DAILY [facility] Last Admin: 01/27/18 10:04 Dose: 10 mg Melatonin (Melatonin (Nf)) 1 mg PO BEDTIME PRN PRN Reason: INSOMNIA Tramadol HCl (Ultram*) 50 mg PO Q6H PRN PRN Reason: PAIN Last Admin: 01/26/18 17:44 Dose: 50 mg Vital Signs - 8 hr 01/27/18 01/27/18 01/27/18 10:03 11:36 13:05 Temperature 97.4 F Pulse Rate 79 Respiratory 17 16 18 Rate Blood Pressure 130/57 (mmHg) O2 Sat by Pulse 93 Oximetry 01/27/18 15:50 Temperature 98.5 F Pulse Rate 77 Respiratory 18 Rate Blood Pressure 123/63 (mmHg) O2 Sat by Pulse 91 Oximetry Oxygen Devices in Use Now: None Appearance: appears comfortable sitting in the chair Eyes: No Scleral Icterus Ears/Nose/Mouth/Throat: Clear Oropharnyx, Mucous Membranes Moist Neck: NL Appearance and Movements; NL JVP, Trachea Midline Respiratory: Symmetrical Chest Expansion and Respiratory Effort, Clear to Auscultation Cardiovascular: NL Sounds; No Murmurs; No JVD, RRR, No Edema Abdominal: NL Sounds; No Tenderness; No Distention Extremities: No Edema, - - dressing intact to left lower leg. left thigh warm to touch. Neurological: Alert and Oriented x 3, NL Muscle Strength and Tone Nutrition: Taking PO's Result Diagrams: 01/25/18 08:39 01/25/18 08:39 Additional Lab and Data: Laboratory Results - last 24 hr 01/24/18 01/24/18 01/25/18 16:36 22:27 07:47 WBC RBC Hgb Hct MCV MCH MCHC RDW Plt Count MPV Neut % (Auto) Lymph % (Auto) [place] % (Auto) Eos % (Auto) Baso % (Auto) Absolute Neuts (auto) Absolute Lymphs (auto) Absolute Monos (auto) Absolute Eos (auto) Absolute Basos (auto) Absolute Nucleated RBC Nucleated RBC % Sodium Potassium Chloride Carbon Dioxide Anion Gap BUN Creatinine Est GFR ( Amer) Est GFR (Non-Af Amer) BUN/Creatinine Ratio Glucose POC Glucose (mg/dL) 287 H 246 H 245 H Calcium 01/25/18 01/25/18 01/25/18 08:39 08:39 11:25 WBC 13.5 H RBC 4.29 Hgb 10.1 L Hct 31 L MCV 72 L MCH 24 L MCHC 33 RDW 20 H Plt Count 369 MPV 6.8 L Neut % (Auto) 78.1 Lymph % (Auto) 10.6 L [place] % (Auto) 9.4 H Eos % (Auto) 1.1 Baso % (Auto) 0.8 Absolute Neuts (auto) 10.6 H Absolute Lymphs (auto) 1.4 Absolute Monos (auto) 1.3 H Absolute Eos (auto) 0.1 Absolute Basos (auto) 0.1 Absolute Nucleated RBC 0 Nucleated RBC % 0.1 Sodium 134 L Potassium 4.2 Chloride 99 L Carbon Dioxide 29 Anion Gap 6 BUN 18 Creatinine 1.12 Est GFR ( Amer) 87.5 Est GFR (Non-Af Amer) 68.1 BUN/Creatinine Ratio 16.1 Glucose 208 H POC Glucose (mg/dL) 168 H Calcium 9.0 01/25/18 17:10 WBC RBC Hgb Hct MCV MCH MCHC RDW Plt Count MPV Neut % (Auto) Lymph % (Auto) [place] % (Auto) Eos % (Auto) Baso % (Auto) Absolute Neuts (auto) Absolute Lymphs (auto) Absolute Monos (auto) Absolute Eos (auto) Absolute Basos (auto) Absolute Nucleated RBC Nucleated RBC % Sodium Potassium Chloride Carbon Dioxide Anion Gap BUN Creatinine Est GFR ( Amer) Est GFR (Non-Af Amer) BUN/Creatinine Ratio Glucose POC Glucose (mg/dL) 130 H Calcium Microbiology and Other Data: Microbiology 01/22/18 13:03 Blood Venous Aerobic Blood Culture - Preliminary No Growth Day 3 01/22/18 13:03 Blood Venous Anaerobic Blood Culture - Preliminary No Growth Day 3 01/22/18 13:00 Blood Venous Aerobic Blood Culture - Preliminary No Growth Day 3 01/22/18 13:00 Blood Venous Anaerobic Blood Culture - Preliminary No Growth Day 3 01/23/18 11:00 Foot Left Gram Stain - Final 01/23/18 11:00 Foot Left Wound Culture - Final Corynebacterium Amycolatum 01/22/18 14:18 Urine Urine Culture - Final No Growth (<1,000 CFU/mL) Assess/Plan/Problems-Billing Assessment: 57 yo male with IDDM p/w nonhealing left diabetic foot ulcer. s/p transmetatarsal amputation 01/24. On zosyn, planned 4-6 weeks. 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 (5) PTSD (post-traumatic stress disorder) Current Visit: No Status: Chronic Code(s): F43.10 - POST-TRAUMATIC STRESS DISORDER, UNSPECIFIED SNOMED Code(s): 02408192 Comment: - Continue fluoxetine (6) PVD (peripheral vascular disease) Current Visit: No Status: Chronic Code(s): I73.9 - PERIPHERAL VASCULAR DISEASE, UNSPECIFIED SNOMED Code(s): 735108685 Comment: - With associated neuropathy - will continue gabapentin (7) DVT prophylaxis Current Visit: No Status: Acute Code(s): DII6756 - SNOMED Code(s): 692530506 Comment: SQ heparin (8) Full code status Current Visit: No Status: Acute Code(s): Z78.9 - OTHER SPECIFIED HEALTH STATUS SNOMED Code(s): 215629064 Status and Disposition: medicine inpatient. will need 4 to 6 weeks of iv antibiotics
[2018-01-27] MEDS: Insulin GLARGINE(*) 1 UNITS UNIT SUBCUT SCH (21:36)
[2018-01-28] MEDS: Heparin VIAL(*) 5000 UNITS/ML VIAL (FIVE THOUSAND) SUBCUT SCH ×3 (05:36→22:11)
[2018-01-28] MEDS: Piperacillin/Tazobac ADVAN(*) 3.375 GM in NS 0.9% 100 ML* 100 ML IVPB SCH ×3 (05:36→22:03)
--- NOTE | 2018-01-28 09:02 | PN ---
Progress Note - Progress Note Date of Service: 01/28/18 SOAP: Subjective: 57 y/o male s/p trastarsal amp by Dr. Canales 01/24. Patient reports feeling fatigued, no other change. VSS afebrile overnight. Objective: General- Well appearing, NAD, AO Sitting in chair comfortably MSK- SPlint intact over L foot, no drainage noted, dry drainage from JOEL site. no induration, erythema above splint. Vital Signs Temp 97.7 F 01/28/18 11:26 Pulse 71 01/28/18 11:26 Resp 16 01/28/18 11:26 BP 121/56 01/28/18 11:26 Pulse Ox 92 01/28/18 11:26 Intake & Output 01/27/18 01/28/18 01/28/18 18:59 06:59 18:59 Intake Total 840 760 721 Output Total 1650 1950 925 Balance -810 -1190 -204 Intake: IV Fluids 120 121 ABX - ZOSYN 100 100 NS (0.9%) 20 21 Oral 840 640 600 Output: Urine 1650 1950 925 Other: # Bowel Movements 0 Assessment: Stable 57 y/o male s/p trastarsal amp by Dr. Canales 01/24 Plan: - Wound cultures- + corynebac walter. awating final cultures, sens. - ID Following - Zosyn x 4 weeks, will follow - Placement likely- Patient had bad experience in the past, will discuss, patient agreed to looking at different placements available, but refused placement with field care coordinator - Continue PT/OT - Dr. Canales to see patient and cast tomorrow - Follow up with Dr. Canales - Mild increase in WBC today, continue to follow Acetaminophen (Tylenol Tab*) 650 mg PO Q6H PRN PRN Reason: PAIN Last Admin: 01/25/18 21:29 Dose: 650 mg Al Hydrox/Mg Hydrox/Simethicone (Maalox Plus*) 30 ml PO Q6H PRN PRN Reason: INDIGESTION Amlodipine Besylate (Norvasc Tab*) 10 mg PO DAILY [facility] Last Admin: 01/28/18 09:04 Dose: 10 mg Dextrose (D50w Syringe 50 Ml*) 12.5 gm IV PUSH .FOR FS < 60 - SS PRN PRN Reason: FS < 60 Fluoxetine HCl (Prozac Cap*) 40 mg PO DAILY [facility] Last Admin: 01/28/18 09:04 Dose: 40 mg Gabapentin (Neurontin Cap(*)) 100 mg PO BID [facility] Last Admin: 01/28/18 09:04 Dose: 100 mg Heparin Sodium (Porcine) (Heparin Vial(*)) 5,000 units SUBCUT Q8HR [facility] Last Admin: 01/28/18 13:27 Dose: 5,000 units Piperacillin Sod/Tazobactam (Sod 3.375 gm/ Sodium Chloride) 100 mls @ 25 mls/ hr IVPB 0530,1330,2130 [facility] Last Admin: 01/28/18 13:28 Dose: 25 mls/hr Insulin Glargine (Lantus(*)) 58 units SUBCUT Q24HR@2200 [facility] Last Admin: 01/27/18 21:36 Dose: 58 units Insulin Human Lispro (Humalog*) 15 units SUBCUT TID AC [facility] Last Admin: 01/28/18 13:27 Dose: 15 units Iron/Vitamin C (Vitron-C (Nf)) 1 tab PO DAILY [facility] Last Admin: 01/28/18 09:06 Dose: Not Given Lisinopril (Prinivil Tab*) 10 mg PO DAILY [facility] Last Admin: 01/28/18 09:04 Dose: 10 mg Melatonin (Melatonin (Nf)) 1 mg PO BEDTIME PRN PRN Reason: INSOMNIA Tramadol HCl (Ultram*) 50 mg PO Q6H PRN PRN Reason: PAIN Last Admin: 01/26/18 17:44 Dose: 50 mg Laboratory Results - last 24 hr 01/27/18 01/27/18 01/28/18 16:53 21:25 07:53 POC Glucose (mg/dL) 147 H 175 H 121 H 01/28/18 11:45 POC Glucose (mg/dL) 139 H
[2018-01-28] MEDS: FLUoxetine CAP* 20 MG PO SCH (09:04)
[2018-01-28] MEDS: Gabapentin CAP(*) 100 MG PO SCH ×2 (09:04→22:07)
[2018-01-28] MEDS: Lisinopril TAB* 10 MG PO SCH (09:04)
[2018-01-28] MEDS: amLODIPine TAB* 5 MG PO SCH (09:04)
[2018-01-28] MEDS: Insulin LISPRO* 1 UNITS UNIT SUBCUT SCH ×3 (09:05→17:57)
[2018-01-28] MEDS: IRON VITAMIN C PO SCH (09:06)
--- NOTE | 2018-01-28 10:20 | PN ---
Progress Note - Progress Note Date of Service: 01/28/18 SOAP: Subjective: CC: foot wound HPI: 57 year old man with left foot abscess, recent I&D; wound failed to heal; had amputation 10/27. Drain out over the weekend. No fever, rash, or diarrhea. Objective: Vital Signs Temp 36.4 C 01/28/18 07:36 Pulse 84 01/28/18 07:36 Resp 18 01/28/18 09:04 BP 141/69 01/28/18 07:36 Pulse Ox 95 01/28/18 09:08 Intake & Output 01/27/18 01/28/18 01/28/18 18:59 06:59 18:59 Intake Total 840 760 250 Output Total 1650 1950 300 Balance -810 -1190 -50 Intake: IV Fluids 120 ABX - ZOSYN 100 NS (0.9%) 20 Oral 840 640 250 Output: Urine 1650 1950 300 Other: # Bowel Movements 0 Gen:awake,no distress HEENT:no thrush Heart:RRR no murmur Lungs:CTA BL Abd:+BS NTND soft Skin: no rash MSK: left foot casted Laboratory Results - last 24 hr 01/27/18 01/27/18 01/27/18 11:48 16:53 21:25 POC Glucose (mg/dL) 119 H 147 H 175 H 01/28/18 07:53 POC Glucose (mg/dL) 121 H Assessment: 1. polymicrobial acute osteomyelitis left midfoot s/p amputation 2. diabetes with hyperglycemia and neuropathy 3. morbid obesity Plan: 1. continue zosyn day ; weekly cbc, cmp, crp.
--- NOTE | 2018-01-28 14:49 | PN ---
Subjective Date of Service: 01/28/18 Interval History: no complaints sitting in the chair. Denies chest pain or shortness of breath . Denies abd pain n/v/d Family History: Unchanged from Admission Social History: Unchanged from Admission Past Medical History: Unchanged from Admission Objective Active Medications: Acetaminophen (Tylenol Tab*) 650 mg PO Q6H PRN PRN Reason: PAIN Last Admin: 01/25/18 21:29 Dose: 650 mg Al Hydrox/Mg Hydrox/Simethicone (Maalox Plus*) 30 ml PO Q6H PRN PRN Reason: INDIGESTION Amlodipine Besylate (Norvasc Tab*) 10 mg PO DAILY [facility] Last Admin: 01/28/18 09:04 Dose: 10 mg Dextrose (D50w Syringe 50 Ml*) 12.5 gm IV PUSH .FOR FS < 60 - SS PRN PRN Reason: FS < 60 Fluoxetine HCl (Prozac Cap*) 40 mg PO DAILY [facility] Last Admin: 01/28/18 09:04 Dose: 40 mg Gabapentin (Neurontin Cap(*)) 100 mg PO BID [facility] Last Admin: 01/28/18 09:04 Dose: 100 mg Heparin Sodium (Porcine) (Heparin Vial(*)) 5,000 units SUBCUT Q8HR [facility] Last Admin: 01/28/18 13:27 Dose: 5,000 units Piperacillin Sod/Tazobactam (Sod 3.375 gm/ Sodium Chloride) 100 mls @ 25 mls/ hr IVPB 0530,1330,2130 [facility] Last Admin: 01/28/18 13:28 Dose: 25 mls/hr Insulin Glargine (Lantus(*)) 58 units SUBCUT Q24HR@2200 [facility] Last Admin: 01/27/18 21:36 Dose: 58 units Insulin Human Lispro (Humalog*) 15 units SUBCUT TID AC [facility] Last Admin: 01/28/18 13:27 Dose: 15 units Iron/Vitamin C (Vitron-C (Nf)) 1 tab PO DAILY [facility] Last Admin: 01/28/18 09:06 Dose: Not Given Lisinopril (Prinivil Tab*) 10 mg PO DAILY [facility] Last Admin: 01/28/18 09:04 Dose: 10 mg Melatonin (Melatonin (Nf)) 1 mg PO BEDTIME PRN PRN Reason: INSOMNIA Tramadol HCl (Ultram*) 50 mg PO Q6H PRN PRN Reason: PAIN Last Admin: 01/26/18 17:44 Dose: 50 mg Vital Signs - 8 hr 01/28/18 01/28/18 01/28/18 07:36 08:00 09:04 Temperature 97.5 F Pulse Rate 84 Respiratory 16 18 18 Rate Blood Pressure 141/69 (mmHg) O2 Sat by Pulse 93 95 Oximetry 01/28/18 01/28/18 01/28/18 09:08 10:45 11:26 Temperature 97.7 F Pulse Rate 71 Respiratory 18 16 Rate Blood Pressure 121/56 (mmHg) O2 Sat by Pulse 95 92 Oximetry Oxygen Devices in Use Now: None Appearance: middle aged obese male, alert Eyes: No Scleral Icterus Ears/Nose/Mouth/Throat: Clear Oropharnyx, Mucous Membranes Moist Neck: NL Appearance and Movements; NL JVP, Trachea Midline Respiratory: Symmetrical Chest Expansion and Respiratory Effort, Clear to Auscultation Cardiovascular: NL Sounds; No Murmurs; No JVD, RRR, No Edema Abdominal: NL Sounds; No Tenderness; No Distention Extremities: - - dressing intact to left lower leg Skin: No Rash or Ulcers, No Nodules or Sclerosis Neurological: Alert and Oriented x 3 Nutrition: Taking PO's Result Diagrams: 01/25/18 08:39 01/25/18 08:39 Additional Lab and Data: Laboratory Results - last 24 hr 01/24/18 01/24/18 01/25/18 16:36 22:27 07:47 WBC RBC Hgb Hct MCV MCH MCHC RDW Plt Count MPV Neut % (Auto) Lymph % (Auto) Lyman % (Auto) Eos % (Auto) Baso % (Auto) Absolute Neuts (auto) Absolute Lymphs (auto) Absolute Monos (auto) Absolute Eos (auto) Absolute Basos (auto) Absolute Nucleated RBC Nucleated RBC % Sodium Potassium Chloride Carbon Dioxide Anion Gap BUN Creatinine Est GFR ( Amer) Est GFR (Non-Af Amer) BUN/Creatinine Ratio Glucose POC Glucose (mg/dL) 287 H 246 H 245 H Calcium 01/25/18 01/25/18 01/25/18 08:39 08:39 11:25 WBC 13.5 H RBC 4.29 Hgb 10.1 L Hct 31 L MCV 72 L MCH 24 L MCHC 33 RDW 20 H Plt Count 369 MPV 6.8 L Neut % (Auto) 78.1 Lymph % (Auto) 10.6 L Lyman % (Auto) 9.4 H Eos % (Auto) 1.1 Baso % (Auto) 0.8 Absolute Neuts (auto) 10.6 H Absolute Lymphs (auto) 1.4 Absolute Monos (auto) 1.3 H Absolute Eos (auto) 0.1 Absolute Basos (auto) 0.1 Absolute Nucleated RBC 0 Nucleated RBC % 0.1 Sodium 134 L Potassium 4.2 Chloride 99 L Carbon Dioxide 29 Anion Gap 6 BUN 18 Creatinine 1.12 Est GFR ( Amer) 87.5 Est GFR (Non-Af Amer) 68.1 BUN/Creatinine Ratio 16.1 Glucose 208 H POC Glucose (mg/dL) 168 H Calcium 9.0 01/25/18 17:10 WBC RBC Hgb Hct MCV MCH MCHC RDW Plt Count MPV Neut % (Auto) Lymph % (Auto) Lyman % (Auto) Eos % (Auto) Baso % (Auto) Absolute Neuts (auto) Absolute Lymphs (auto) Absolute Monos (auto) Absolute Eos (auto) Absolute Basos (auto) Absolute Nucleated RBC Nucleated RBC % Sodium Potassium Chloride Carbon Dioxide Anion Gap BUN Creatinine Est GFR ( Amer) Est GFR (Non-Af Amer) BUN/Creatinine Ratio Glucose POC Glucose (mg/dL) 130 H Calcium Microbiology and Other Data: Microbiology 01/22/18 13:03 Blood Venous Aerobic Blood Culture - Preliminary No Growth Day 3 01/22/18 13:03 Blood Venous Anaerobic Blood Culture - Preliminary No Growth Day 3 01/22/18 13:00 Blood Venous Aerobic Blood Culture - Preliminary No Growth Day 3 01/22/18 13:00 Blood Venous Anaerobic Blood Culture - Preliminary No Growth Day 3 01/23/18 11:00 Foot Left Gram Stain - Final 01/23/18 11:00 Foot Left Wound Culture - Final Corynebacterium Amycolatum 01/22/18 14:18 Urine Urine Culture - Final No Growth (<1,000 CFU/mL) Assess/Plan/Problems-Billing Assessment: 57 yo male with IDDM p/w nonhealing left diabetic foot ulcer. s/p transmetatarsal amputation 01/24. On zosyn, planned 4-6 weeks. - Patient Problems (1) Osteomyelitis Current Visit: No Status: Acute Priority: High Onset Date: 07/09/14 Code (s): M86.9 - OSTEOMYELITIS, UNSPECIFIED SNOMED Code(s): 65109554 Comment: S/P left foot amputation to the transtarsal joint Will continue Zosyn for 4 to 6 weeks as per ID- PICC line ordered remains afebrile (2) Uncontrolled diabetes mellitus Current Visit: No Status: Acute Code(s): E11.65 - TYPE 2 DIABETES MELLITUS WITH HYPERGLYCEMIA SNOMED Code(s): 443241396 Comment: Blood glucose 121-139 Lantus 58U, Lispro TID (3) Chronic renal failure Current Visit: No Status: Chronic Comment: - Stable [employer] (4) HTN (hypertension) Current Visit: No Status: Chronic Code(s): I10 - ESSENTIAL (PRIMARY) HYPERTENSION SNOMED Code(s): 37342497 Comment: SBP 120's - will continue to monitor continue amlodipine at 10 continue lisinopril 10. (5) PTSD (post-traumatic stress disorder) Current Visit: No Status: Chronic Code(s): F43.10 - POST-TRAUMATIC STRESS DISORDER, UNSPECIFIED SNOMED Code(s): 18222582 Comment: - Continue fluoxetine (6) PVD (peripheral vascular disease) Current Visit: No Status: Chronic Code(s): I73.9 - PERIPHERAL VASCULAR DISEASE, UNSPECIFIED SNOMED Code(s): 728618439 Comment: - With associated neuropathy - will continue gabapentin (7) DVT prophylaxis Current Visit: No Status: Acute Code(s): QEW1765 - SNOMED Code(s): 330341336 Comment: SQ heparin (8) Full code status Current Visit: No Status: Acute Code(s): Z78.9 - OTHER SPECIFIED HEALTH STATUS SNOMED Code(s): 820383265 Status and Disposition: medicine inpatient. will need 4 to 6 weeks of iv antibiotics
[2018-01-28] MEDS: Insulin GLARGINE(*) 1 UNITS UNIT SUBCUT SCH (22:12)
[2018-01-29] MEDS: Piperacillin/Tazobac ADVAN(*) 3.375 GM in NS 0.9% 100 ML* 100 ML IVPB SCH ×3 (05:58→21:42)
[2018-01-29] MEDS: Heparin VIAL(*) 5000 UNITS/ML VIAL (FIVE THOUSAND) SUBCUT SCH ×3 (06:00→21:42)
[2018-01-29] MEDS: Lisinopril TAB* 10 MG PO SCH (09:22)
[2018-01-29] MEDS: Gabapentin CAP(*) 100 MG PO SCH ×2 (09:22→21:42)
[2018-01-29] MEDS: FLUoxetine CAP* 20 MG PO SCH (09:23)
[2018-01-29] MEDS: amLODIPine TAB* 5 MG PO SCH (09:23)
[2018-01-29] MEDS: Insulin LISPRO* 1 UNITS UNIT SUBCUT SCH ×3 (09:24→17:31)
[2018-01-29] MEDS: IRON VITAMIN C PO SCH (09:24)
[2018-01-29 14:06] LABS: ABS Basophils 0.1 10^3/ul (0-0.2); ABS Eosinophils 0.5 10^3/ul (0-0.6); ABS Lymphocytes 2.1 10^3/ul (1.0-4.8); ABS Monocytes 1.4 10^3/ul (0-0.8); ABS Neutrophils 11.6 10^3/ul (1.5-7.7); ABS Nucleated RBC 0 10^3/ul; Eosinophil % 3.2 % (0-6); Hematocrit 34 % (42-52); Hemoglobin 10.8 g/dl (14.0-18.0); Lymphocyte % 13.3 % (25-47); Mean Corpuscular HGB Conc 32 g/dl (31-36); Mean Corpuscular Hemoglobin 23 pg (27-31); Mean Corpuscular Volume 73 fL (80-94); Mean Platelet Volume 6.8 um3 (7.4-10.4); Nucleated Red Blood Cells % 0.1; Platelet Count 486 10^3/ul (150-450); Red Blood Count 4.66 10^6/ul (4.0-5.4); Red Cell Distribution Width 19 % (10.5-15); White Blood Count 15.8 10^3/ul (3.5-10.8)
[2018-01-29 14:12] LABS: INR 1.09 (0.77-1.02)
--- NOTE | 2018-01-29 14:19 | PN ---
Subjective Date of Service: 01/29/18 Interval History: Mr. Maldonado reports feeling quite well and denies any complaint. He specifically denies left leg pain as well as chest pain, SOB, nausea, or abdominal pain. Family History: Unchanged from Admission Social History: Unchanged from Admission Past Medical History: Unchanged from Admission Objective Active Medications: Acetaminophen (Tylenol Tab*) 650 mg PO Q6H PRN Al Hydrox/Mg Hydrox/Simethicone (Maalox Plus*) 30 ml PO Q6H PRN Amlodipine Besylate (Norvasc Tab*) 10 mg PO DAILY [facility] Dextrose (D50w Syringe 50 Ml*) 12.5 gm IV PUSH .FOR FS < 60 - SS PRN Fluoxetine HCl (Prozac Cap*) 40 mg PO DAILY [facility] Gabapentin (Neurontin Cap(*)) 100 mg PO BID [facility] Heparin Sodium (Porcine) (Heparin Vial(*)) 5,000 units SUBCUT Q8HR [facility] Piperacillin Sod/Tazobactam (Sod 3.375 gm/ Sodium Chloride) 100 mls @ 25 mls/ hr IVPB 0530,1330,2130 [facility] Insulin Glargine (Lantus(*)) 58 units SUBCUT Q24HR@2200 [facility] Insulin Human Lispro (Humalog*) 15 units SUBCUT TID AC [facility] Iron/Vitamin C (Vitron-C (Nf)) 1 tab PO DAILY [facility] Lisinopril (Prinivil Tab*) 10 mg PO DAILY [facility] Melatonin (Melatonin (Nf)) 1 mg PO BEDTIME PRN Tramadol HCl (Ultram*) 50 mg PO Q6H PRN Vital Signs: Temp Pulse Resp BP Pulse Ox 97.5 F 79 18 118/59 99 01/29/18 11:05 01/29/18 11:05 01/29/18 11:14 01/29/18 11:05 01/29/18 11:05 Oxygen Devices in Use Now: None Appearance: Male lying in bed in NAD Eyes: No Scleral Icterus Ears/Nose/Mouth/Throat: Mucous Membranes Moist Neck: Trachea Midline Respiratory: Symmetrical Chest Expansion and Respiratory Effort, Clear to Auscultation Cardiovascular: NL Sounds; No Murmurs; No JVD, No Edema Abdominal: NL Sounds; No Tenderness; No Distention Lymphatic: No Cervical Adenopathy Extremities: No Edema Skin: No Rash or Ulcers, - - Cast to Left LE Neurological: Alert and Oriented x 3, NL Muscle Strength and Tone Result Diagrams: 01/29/18 13:48 01/25/18 08:39 Additional Lab and Data: . Microbiology and Other Data: . Assess/Plan/Problems-Billing Assessment: Mr. Maldonado is a 57 yo male with IDDM p/w nonhealing left diabetic foot ulcer. s/ p transmetatarsal amputation 01/24. On zosyn, planned 4-6 weeks. - Patient Problems (1) Osteomyelitis Comment: - S/P left foot amputation to the transtarsal joint. - Appreciate ID consult, continue Zosyn for 6 weeks, PICC line ordered. (2) Uncontrolled diabetes mellitus Comment: - Blood glucose 121-139 - Continue Lantus 58U with lispro for meals as well as SSI coverage. (3) HTN (hypertension) Comment: - SBP 120's. - Continue amlodipine and lisinopril. (4) PTSD (post-traumatic stress disorder) Comment: - Continue fluoxetine (5) DVT prophylaxis Comment: - SQ heparin (6) Full code status Comment: Status and Disposition: Inpatient. Anticipate discharge to home when outpatient antibiotic infusion can be arranged.
--- NOTE | 2018-01-29 15:28 | PN ---
Progress Note - Progress Note Date of Service: 01/29/18 Note: I saw Main this afternoon. His splint was removed. No pain. His incision looks great, without any erythema or drainage. The wound was redressed and he was placed into a short leg fiberglass cast. He will try to be as nonweightbearing as possible. He will continue to rest and elevate. He will continue on DVT prophylaxis. He will followup with me in one week for a repeat wound check. He will continue on antibiotics per the infectious disease service. Teddy Canales MD
[2018-01-29] MEDS: Acetaminophen TAB* 325 MG PO PRN (16:45)
[2018-01-29] MEDS: Insulin GLARGINE(*) 1 UNITS UNIT SUBCUT SCH (21:43)
[2018-01-30] MEDS: Piperacillin/Tazobac ADVAN(*) 3.375 GM in NS 0.9% 100 ML* 100 ML IVPB SCH ×2 (05:46→14:08)
[2018-01-30] MEDS: Heparin VIAL(*) 5000 UNITS/ML VIAL (FIVE THOUSAND) SUBCUT SCH ×2 (05:46→14:08)
[2018-01-30] MEDS: Lisinopril TAB* 10 MG PO SCH (08:27)
[2018-01-30] MEDS: Gabapentin CAP(*) 100 MG PO SCH (08:27)
[2018-01-30] MEDS: amLODIPine TAB* 5 MG PO SCH (08:27)
[2018-01-30] MEDS: Insulin LISPRO* 1 UNITS UNIT SUBCUT SCH ×2 (08:27→12:57)
[2018-01-30] MEDS: FLUoxetine CAP* 20 MG PO SCH (08:27)
[2018-01-30] MEDS: IRON VITAMIN C PO SCH (08:29)
[2018-01-30 13:11] VITALS: BP 134/60
--- NOTE | 2018-01-30 14:36 | PN ---
Subjective Date of Service: 01/30/18 Interval History: Mr. Maldonado denies complaint and is eager for discharge today. Family History: Unchanged from Admission Social History: Unchanged from Admission Past Medical History: Unchanged from Admission Objective Active Medications: Acetaminophen (Tylenol Tab*) 650 mg PO Q6H PRN Al Hydrox/Mg Hydrox/Simethicone (Maalox Plus*) 30 ml PO Q6H PRN Amlodipine Besylate (Norvasc Tab*) 10 mg PO DAILY [facility] Dextrose (D50w Syringe 50 Ml*) 12.5 gm IV PUSH .FOR FS < 60 - SS PRN Fluoxetine HCl (Prozac Cap*) 40 mg PO DAILY [facility] Gabapentin (Neurontin Cap(*)) 100 mg PO BID [facility] Heparin Sodium (Porcine) (Heparin Vial(*)) 5,000 units SUBCUT Q8HR [facility] Heparin Sodium (Porcine) (Heparin Flush Picc/Ml/Cvc(*)) 1 ml FLUSH 0600,1800 [facility] Piperacillin Sod/Tazobactam (Sod 3.375 gm/ Sodium Chloride) 100 mls @ 25 mls/ hr IVPB 0530,1330,2130 [facility] Insulin Glargine (Lantus(*)) 58 units SUBCUT Q24HR@2200 [facility] Insulin Human Lispro (Humalog*) 15 units SUBCUT TID AC [facility] Iron/Vitamin C (Vitron-C (Nf)) 1 tab PO DAILY [facility] Lisinopril (Prinivil Tab*) 10 mg PO DAILY [facility] Melatonin (Melatonin (Nf)) 1 mg PO BEDTIME PRN Tramadol HCl (Ultram*) 50 mg PO Q6H PRN Vital Signs: Temp Pulse Resp BP Pulse Ox 97.9 F 72 24 134/60 93 01/30/18 11:30 01/30/18 11:30 01/30/18 11:30 01/30/18 11:30 01/30/18 11:30 Oxygen Devices in Use Now: None Appearance: Male lying in bed in NAD Eyes: No Scleral Icterus Ears/Nose/Mouth/Throat: Mucous Membranes Moist Neck: Trachea Midline Respiratory: Symmetrical Chest Expansion and Respiratory Effort, Clear to Auscultation Cardiovascular: NL Sounds; No Murmurs; No JVD, No Edema Abdominal: NL Sounds; No Tenderness; No Distention Lymphatic: No Cervical Adenopathy Extremities: No Edema Skin: No Rash or Ulcers Neurological: Alert and Oriented x 3, NL Muscle Strength and Tone Nutrition: Taking PO's Result Diagrams: 01/29/18 13:48 01/25/18 08:39 Additional Lab and Data: . Microbiology and Other Data: . Assess/Plan/Problems-Billing Assessment: Mr. Maldonado is a 57 yo male with IDDM p/w nonhealing left diabetic foot ulcer. s/ p transmetatarsal amputation 01/24. On zosyn, planned 4-6 weeks. - Patient Problems (1) Osteomyelitis Comment: - S/P left foot amputation to the transtarsal joint. - Appreciate ID consult, continue Zosyn for 6 weeks, PICC line placed. (2) Uncontrolled diabetes mellitus Comment: - Blood glucose 121-139 - Resume home meds. (3) HTN (hypertension) Comment: - SBP 120's. - Continue amlodipine and lisinopril. (4) PTSD (post-traumatic stress disorder) Comment: - Continue fluoxetine (5) DVT prophylaxis Comment: - SQ heparin (6) Full code status Comment: Status and Disposition: Inpatient. Discharge to home.
--- NOTE | 2018-01-31 10:32 | DS ---
AMENDED REPORT NOW INCLUDES COSIGNER DESIGNATION - ESIGNED BEFORE ADJUSTMENT CC: Dr. Greene * HOSPITAL MEDICINE DISCHARGE SUMMARY: DATE OF ADMISSION: 01/22/18 DATE OF DISCHARGE: 01/30/18 PRIMARY CARE PHYSICIAN: Dr. Greene. ATTENDING PHYSICIAN: Dr. Briseyda Yeboah * (dictation provided by Gabrielle Jc NP ). PRIMARY DIAGNOSES: Left transmetatarsal amputation secondary to osteomyelitis and diabetes. SECONDARY DIAGNOSES: 1. Type 2 diabetes, insulin-dependent. 2. Peripheral vascular disease. 3. Posttraumatic stress disorder/Asperger's syndrome. 4. Hypertension. 5. History of renal failure due to ATN from cefepime. MEDICATIONS AT THE TIME OF DISCHARGE: 1. Lispro insulin 15 units subcutaneously t.i.d. 2. Pravastatin 20 mg p.o. daily. 3. Lisinopril 10 mg p.o. daily. 4. Iron with vitamin C 1 tab p.o. daily. 5. Lantus insulin 58 units subcutaneously q.p.m. 6. Amlodipine 5 mg p.o. daily. 7. Fluoxetine 40 mg p.o. daily. 8. Lovenox 40 mg subcutaneously daily x30 days. 9. Maalox plus 30 mL p.o. q.6 hours p.r.n. 10. Tylenol 650 mg p.o. q.6 hours p.r.n. HOSPITAL COURSE: Mr. Maldonado is a 57-year-old male with a past medical history of insulin-dependent diabetic and peripheral vascular disease, who presented to the hospital on 01/22/18 from the orthopedic surgery clinic out of concern for infection to the left foot with a nonhealing left foot ulcer. Please see the dictated H and P from Werner King DO for complete details. In brief, the patient had been followed by Dr. Walker and his team as well as Dr. Hernandes from infectious diseases for chronic foot ulcer. He had a VAC placed along the way and had been on antibiotics. Despite this, the wound continued to heal poorly and therefore, he was sent to the hospital for intravenous antibiotics and further treatment on 01/22/18. Mr. Maldonado had a lower extremity MRI on the day of admission which showed "new bone marrow edema within the first and second metatarsal bones and medial and intermediate cuneiform bones adjacent to the soft tissue, large ulcer most consistent with osteomyelitis." His labs at that point showed white blood cell count of 14. He is anemic with a hemoglobin of 10.2, but this is consistent with his baseline. BUN and creatinine were normal. CRP was 87.35. He was afebrile. Mr. Maldonado had a transthoracic echocardiogram for preoperative evaluation prior to surgery on 01/22/18 that showed "mild to moderate concentric left ventricular hypertrophy, the base of the inferior wall hypokinetic on echo contrast views and 2 chamber view wall motion in-contractility, otherwise normal. This can be very abnormal. The estimated ejection fraction is 50% to 55%. The right ventricular systolic pressure is estimated at 34 with evidence of pulmonary hypertension may be underestimated. No significant valvular abnormality." He was seen in consultation both by Dr. Hernandes who noted his recommendation for continued Zosyn and suspected that he likely would need further operative intervention for healing. The patient had a left-sided lower extremity arterial duplex which showed "although, there is in line flow recorded from the left common femoral artery to the distal [employer] and dorsalis pedis arteries in the proximal foot, there are mildly increased velocities recorded at the left common femoral artery and superficial femoral artery that extended to the popliteal artery. The flow velocity and increased in velocity measured at the dorsalis pedis artery and indicates approximately 50% degree stenosis." For evaluation of the peripheral vascular disease, the patient was seen by Dr. Griffin as well. He recommend that the patient could have arteriography if the planned surgical intervention did not heal well. However, at this point, he had no focal occlusion noted. Mr. Maldonado did go on for surgery with Dr. Canales on 01/24/18 at which time a left foot trans tarsal amputation was performed as well as a left tibialis anterior tendon transfer, a left peroneus brevis tendon transfer and a left percutaneous Achillis tenotomy. Mr. Maldonado has been doing well since surgery. He has been recommended to continue on Zosyn for 6 weeks under the direction of Dr. Hernandes. He will be nonweightbearing on the left foot. He does also have a history of right transmetatarsal amputation and therefore, his ambulation is limited. However, with assistance from a close friend, he is deemed appropriate for discharge to home and safe with his mobility with use of a walker. Mr. Maldonado is medically stable for discharge to home. He will be following with Dr. Canales's office on Sunday and Dr. Hernandes's office. He will have the antibiotics at home with Kierra and weekly check of CBC, CMP, and CRP forwarded to Dr. Hernandes. DISPOSITION: Home. DIET: Consistent carbohydrate. ACTIVITY: As tolerated with nonweightbearing on the left foot. FOLLOWUP PLANS: 1. Please follow up with Dr. Canales's office on 02/05/18. 2. Please follow up with Dr. Greene' office in the next 1 to 2 weeks. 3. Please follow up with Dr. Hernandes in the next week. TIME SPENT: Approximately 60 minutes were spent on the discharge of this patient, more than half that time spent with the patient at the bedside reviewing the events leading up to this hospitalization and during this hospitalization, performing the physical examination, and reviewing my plan of care. GABRIELLE JC NP [id number]/CPS #: [id number] ED
== END 2018-01-30 15:15 | disposition home or self-care (01) | DRG 305 ==
LOC: ED 11:56 → MED 13:47 → SSU 01-23 19:58
PROVIDERS: ADMIT Internal Medicine; ATTEND Internal Medicine
PROC: 0LXP0ZZ Transfer Left Lower Leg Tendon, Open Approach (ICD-10-PCS; 2018-01-24)
PROC: 0LN Tendons, Release (ICD-10-PCS; 2018-01-24)
PROC: 0Y6N0Z0 Detachment at Left Foot, Complete, Open Approach (ICD-10-PCS; principal; 2018-01-24 13:00)
DX: E11.69 Type 2 diabetes mellitus with other specified complication (principal); M86.172 Other acute osteomyelitis, left ankle and foot; F84.5 Asperger's syndrome; L02.612 Cutaneous abscess of left foot; Z68.41 Body mass index [BMI] 40.0-44.9, adult; E11.65 Type 2 diabetes mellitus with hyperglycemia; E11.621 Type 2 diabetes mellitus with foot ulcer; L97.529 Non-pressure chronic ulcer of other part of left foot with unspecified severity; I12.9 Hypertensive chronic kidney disease with stage 1 through stage 4 chronic kidney disease, or unspecified chronic kidney disease; E11.22 Type 2 diabetes mellitus with diabetic chronic kidney disease; N18.9 Chronic kidney disease, unspecified; E11.51 Type 2 diabetes mellitus with diabetic peripheral angiopathy without gangrene; M19.90 Unspecified osteoarthritis, unspecified site; E11.42 Type 2 diabetes mellitus with diabetic polyneuropathy; F32.9 Major depressive disorder, single episode, unspecified; F41.9 Anxiety disorder, unspecified; F43.10 Post-traumatic stress disorder, unspecified; F17.210 Nicotine dependence, cigarettes, uncomplicated; D72.829 Elevated white blood cell count, unspecified; M67.02 Short Achilles tendon (acquired), left ankle; D63.1 Anemia in chronic kidney disease; B95.1 Streptococcus, group B, as the cause of diseases classified elsewhere; I27.20 Pulmonary hypertension, unspecified; I70.208 Unspecified atherosclerosis of native arteries of extremities, other extremity; F43.12 Post-traumatic stress disorder, chronic; E66.01 Morbid (severe) obesity due to excess calories; Z88.1 Allergy status to other antibiotic agents; Z99.2 Dependence on renal dialysis; Z87.39 Personal history of other diseases of the musculoskeletal system and connective tissue; Z89.431 Acquired absence of right foot; Z83.3 Family history of diabetes mellitus; Z82.49 Family history of ischemic heart disease and other diseases of the circulatory system; Z72.89 Other problems related to lifestyle; Z79.4 Long term (current) use of insulin
CPT/HCPCS: 36415; 71045; 80048; 80053; 81003; 81015; 82550; 83605; 83880; 84145; 84484; 85025; 85610; 85730; 86140; 87040; 87070; 87077; 87086; 87205; 88307; 88311; 93005; 93306; 99285; A9270-GY; C1751; C8929; J0690; J1100; J1644; J1650; J2250; J2543; J2704; J3010

== ENCOUNTER 2018-06-19 10:50 | Inpatient (IN) | payer OTHER ==
[2018-06-19] MEDS ORDERED: Ondansetron INJ* 2 MG/ML VIAL IV PRN (11:10)
[2018-06-19] MEDS ORDERED: traZODone TAB* 50 MG TAB PO PRN (11:10)
[2018-06-19] MEDS ORDERED: diPHENhydraMINE PO* 25 MG PO PRN (11:10)
[2018-06-19] MEDS ORDERED: Zosyn per Pharmacy* NOTE FOLLOW UP SCH (12:00)
[2018-06-19] MEDS: Acetaminophen TAB* 325 MG PO SCH ×2 (12:11→20:48)
[2018-06-19] MEDS ORDERED: Piperacillin/Tazobac ADVAN(*) 3.375 GM in NS 0.9% 100 ML* 100 ML IVPB ONE (12:30)
--- NOTE | 2018-06-19 13:22 | HP ---
HISTORY AND PHYSICAL: DATE OF ADMISSION: 06/19/18 PROVIDER: Rizwan Walker MD * (DICTATED BY MIKY WATTS) ADMITTING DIAGNOSIS: Left heel ulcer. HISTORY OF PRESENT ILLNESS: Main is a 58-year-old gentleman with a history of peripheral neuropathy and diabetes who has been followed in the clinic by Dr. Walker and Dr. Rooney for a left heel ulcer after previous Chopart amputation. The patient has failed Betadine dressings within a full contact cast. He has also failed a wound VAC. The ulcer has been persistent and has developed more of a foul order. It was found best that he be admitted for IV antibiotics and debridement within the operating room. PAST MEDICAL HISTORY: Asperger's, diabetes, hypertension, peripheral vascular disease. PAST SURGICAL HISTORY: Bilateral midfoot amputations, multiple surgeries on bilateral feet with partial amputation. He reports no complications with anesthesia with those procedures. CURRENT MEDICATIONS: 1. Tylenol 650 mg p.o. q.6 hours p.r.n. 2. Maalox 30 mL p.o. q.6 hours p.r.n. 3. Amlodipine 5 mg daily. 4. Prozac 40 mg daily. 5. Lantus 58 units subcu q.24 hours. 6. Humalog 15 units subcu t.i.d. 7. Iron/vitamin C supplement daily. 8. Lisinopril 10 mg daily. 9. Pravastatin 40 mg p.o. daily. ALLERGIES: CEFEPIME. FAMILY HISTORY: Noncontributory. SOCIAL HISTORY: The patient lives alone. He does not smoke. He does not drink alcohol. He does not exercise. REVIEW OF SYSTEMS: A 14-point review of systems was discussed with the patient and negative for fevers or recent hospitalizations, headaches, balance problems , changes to his vision or hearing, sore throat, runny nose, shortness of breath , chest pain, abdominal pain, nausea, vomiting or diarrhea. No genitourinary issues. No history of blood clots. He does have a history of depression and anxiety. No history of seizure or stroke. No weakness. No easy bleeding or bruising. No history of seasonal allergies. PHYSICAL EXAMINATION GENERAL: He is a well-developed, well-nourished male, in no acute distress at rest. He seems somewhat anxious and agitated on exam, although he is alert and oriented x3. VITAL SIGNS: The patient is 6 feet tall, 320 pounds. Blood pressure 142/88, pulse of 82, temperature 98.1. HEENT: Normocephalic, atraumatic. His hearing and vision are grossly intact. NECK: His trachea is midline. RESPIRATORY: Lungs are clear to auscultation bilaterally. No wheezes, rales or rhonchi. CARDIOVASCULAR: Regular rate and rhythm. No murmurs, rubs or gallops. Normal S1, S2. ABDOMEN: Obese, nontender. Normal bowel sounds. EXTREMITIES: Exam of the left lower extremity: The patient has a 3-cm round ulceration to the posterior aspect of the heel. There is maceration of the skin surrounding it, but approximately half of the wound bed is good granulation tissue. The other superior half of the wound does appear to be fibrotic tissue with some necrosis to it. There is no surrounding erythema or edema throughout the lower leg. Sensation to light touch is decreased due to his peripheral neuropathy. IMAGING: MRI of the left lower extremity does show very mild edematous changes to the posterior calcaneus. There is no soft tissue abscess or fluid collection. IMPRESSION: Left heel ulcer. PLAN: The patient will be admitted to [facility] for IV antibiotics on 06/20/18. He will undergo left foot wound debridement with possible partial calcanectomy by Dr. Walker. The patient is understanding his hospital course and postoperative course. We will follow the patient along. We will obtain a hospitalist consult for comanagement of his diabetes and hypertension. We will also consult Infectious Disease for antibiotic management. MIKY WATTS [id number]/[facility] #: [id number] MTDD
[2018-06-19] MEDS ORDERED: Dextrose 50% Syringe 50 ML* 25 GM/50 ML SYRINGE IV PUSH PRN (14:15)
[2018-06-19] MEDS: Buffered Lidocaine 0.9% SYRIN* 5 ML/SYR SYRINGE INTRADERM ONE (14:33)
[2018-06-19] MEDS: ZOSYN 3.375 GM Q8H per EXTENDED INFUSION IVPB SCH ×2 (16:26)
[2018-06-19] MEDS: Heparin VIAL(*) 5000 UNITS/ML VIAL (FIVE THOUSAND) SUBCUT SCH (17:51)
[2018-06-19] MEDS: Insulin LISPRO* 1 UNITS UNIT SUBCUT SCH ×2 (17:52→20:54)
[2018-06-19 17:55] LABS: ABS Basophils 0.1 10^3/ul (0-0.2); ABS Eosinophils 0.4 10^3/ul (0-0.6); ABS Lymphocytes 1.5 10^3/ul (1.0-4.8); ABS Monocytes 1.1 10^3/ul (0-0.8); ABS Nucleated RBC 0 10^3/ul; Hematocrit 37 % (42-52); Hemoglobin 11.9 g/dl (14.0-18.0); Lymphocyte % 11.6 % (25-47); Mean Corpuscular HGB Conc 33 g/dl (31-36); Mean Corpuscular Hemoglobin 24 pg (27-31); Mean Corpuscular Volume 73 fL (80-94); Mean Platelet Volume 6.9 um3 (7.4-10.4); Nucleated Red Blood Cells % 0.1; Platelet Count 343 10^3/ul (150-450); Red Cell Distribution Width 19 % (10.5-15); White Blood Count 13.2 10^3/ul (3.5-10.8)
[2018-06-19] MEDS ORDERED: Insulin GLARGINE(*) 1 UNITS UNIT SUBCUT ONE (18:00)
[2018-06-19 18:03] LABS: INR 1.06 (0.77-1.02)
[2018-06-19 18:08] LABS: EGFR Non-African American 61.4 (>60)
--- NOTE | 2018-06-19 18:57 | CONS ---
CC: Dr. Walker * CONSULTATION REPORT: DATE OF CONSULT: 06/19/18 PATIENT OF: Dr. Rizwan Walker. CONSULTED TO: Dr. Hallie King. REASON FOR CONSULT: Medical co-management. HISTORY OF PRESENT ILLNESS: Mr. Maldonado is a 58-year-old gentleman with past medical history significant for hypertension, diabetes and peripheral vascular disease with multiple bilateral lower extremity amputations in the past, who was admitted earlier today by the [facility] after he was found to have a nonhealing left heel ulcer. The patient apparently had history of bilateral Chopart amputation, after which he was trying different kind of boots to use for ambulation when he developed left heel ulcer. Multiple attempts were made in the clinic to heal his ulcer using Betadine dressing; however, it failed and the patient continued to have issues with nonhealing ulcer. He also failed a wound VAC trial. His ulcer has been persistent and has developed more of a foul odor. He apparently also had an MRI of the left lower extremity that revealed no evidence of osteomyelitis, but given the fact that his ulcer has worsened and failed other conservative measures, the patient was directly admitted and had plans to go to the operating room tomorrow for debridement of left heel ulcer in the operating room. He has been admitted and IV antibiotics have been ordered and we were asked to see the patient for evaluation and for medical co-management given his history of hypertension and diabetes. PAST MEDICAL HISTORY: As mentioned above, significant for: 1. Diabetes mellitus, insulin-dependent with diabetic neuropathy. 2. Hypertension. 3. Peripheral vascular disease. 4. Asperger's syndrome. PAST SURGICAL HISTORY: Significant for: 1. Bilateral midfoot amputation. 2. Multiple surgeries on bilateral feet with partial amputations due to nonhealing ulcers and history of osteomyelitis. CURRENT MEDICATIONS: His medications at home include: 1. Tylenol 650 mg p.o. q.6 hours as needed for pain or fever. 2. Maalox 30 mL p.o. q.6 hours as needed for heartburn. 3. Amlodipine 5 mg p.o. daily. 4. Prozac 40 mg p.o. daily. 5. Lantus 58 units subcu q.p.m. 6. Insulin Humalog 15 units subcu t.i.d. before meals. 7. Iron and vitamin C supplement once daily. 8. Lisinopril 10 mg p.o. daily. 9. Pravastatin 40 mg p.o. q.h.s. ALLERGIES: He is allergic to CEFEPIME. FAMILY HISTORY: Reviewed and noncontributory. SOCIAL HISTORY: The patient lives alone. He is a nonsmoker, who does not drink alcohol. He listed his brother and a friend, Brandi, as a healthcare proxy carrier, and he wishes to be a full code. REVIEW OF SYSTEMS: See HPI. Otherwise, 12 points review of systems were examined and they were essentially negative. PHYSICAL EXAM: General: He is pleasant, morbidly obese, middle-aged gentleman , in no acute distress or discomfort at the time of consultation. Vitals: Reveal temperature of 98.2, pulse of 94, blood pressure 152/81, respirations of 18 with O2 sat of 98% on room air. HEENT: Head is normocephalic, atraumatic. Sclerae anicteric. PERRLA. EOMs intact. Oropharynx pink and moist. Neck: Supple. Trachea midline. No cervical adenopathy, thyromegaly, or JVD. Lungs: Clear to auscultation bilaterally. Heart: Regular rate and rhythm. Normal S1 and S2 without rubs, murmurs, or gallops. Back: With normal curvature and no CVA tenderness. Abdomen: Round, soft, nontender, and nondistended. There are no hernias, masses, or hepatosplenomegaly. Bowel sounds were normoactive in all quadrants. Extremities: Left lower extremity with amputation site at midfoot covered with clean dressing and Julito wrap. There was no evidence of bleeding or discharge. Right lower extremity stump appears to be healing well. There was no evidence of any lesions or ulcers and peripheral pulses were 1+. Neurologic: He is awake, alert, and oriented. Tongue is midline. Handgrip is equal bilaterally and sensation is intact. Rectal Exam: Deferred at this time. LABORATORY WORKUP: CBC and BMP ordered and results pending at this time. IMPRESSION: A 58-year-old gentleman with history of morbid obesity with BMI above 40, insulin-dependent diabetes mellitus, hypertension as well as peripheral neuropathy, who was admitted by orthopedic team in anticipation for debridement of nonhealing left lower extremity ulcer and we were asked to see the patient for medical co-management for the following. ASSESSMENT AND PLAN: 1. Insulin-dependent diabetes mellitus. The patient appears to have good glycemic control at home. I will continue his home regimen with Lantus q.p.m. at 58 units and we will continue to cover him per sliding scale q.a.c. and q.h.s. with Humalog. I talked to him regarding the necessity for good glycemic control especially in the postoperative period to ensure adequate healing of his ulcer. 2. Hypertension. I will continue his amlodipine and lisinopril. His blood pressure appears slightly high on admission, but he said he did not take his home medications yet this morning. We will review his vitals per protocol. 3. Hyperlipidemia. I will continue his statins therapy as per home dose. 4. Left heel ulcer. Management per ortho team. The patient apparently failed any conservative measures including outpatient antibiotic and wound VAC. He is scheduled for debridement of left heel ulcer tomorrow and we will keep him n.p.o. after midnight. 5. DVT prophylaxis: Per orthopedic team. The patient is considered high risk. No DVT prophylaxis tonight in anticipation for surgery and will likely to be covered with Lovenox or heparin in the postoperative period. 6. Code status: He is a full code. TIME SPENT: Approximately 50 minutes spent on consultation with this patient, for which greater than 50% of that time on taking history and performing physical exam. I went on and discussed the case with my attending, who agreed to plan of care and will follow him up accordingly. Thank you for this consultation. MIKY MAE [id number]/[facility] #: [id number] ED
[2018-06-19] MEDS: Docusate CAP* 100 MG PO SCH (20:48)
[2018-06-19] MEDS: NS 0.9% 1000 ML* 1,000 ML IV SCH (20:57)
[2018-06-20] MEDS: ZOSYN 3.375 GM Q8H per EXTENDED INFUSION IVPB SCH ×6 (01:52→17:03)
[2018-06-20] MEDS: Heparin VIAL(*) 5000 UNITS/ML VIAL (FIVE THOUSAND) SUBCUT SCH (01:54)
[2018-06-20] MEDS: Acetaminophen TAB* 325 MG PO SCH ×3 (04:54→20:56)
[2018-06-20 05:56] LABS: ABS Basophils 0.1 10^3/ul (0-0.2); ABS Eosinophils 0.4 10^3/ul (0-0.6); ABS Lymphocytes 0.6 10^3/ul (1.0-4.8); ABS Monocytes 0.8 10^3/ul (0-0.8); ABS Neutrophils 9.2 10^3/ul (1.5-7.7); ABS Nucleated RBC 0 10^3/ul; Eosinophil % 3.2 % (0-6); Hematocrit 35 % (42-52); Hemoglobin 11.3 g/dl (14.0-18.0); Lymphocyte % 5.5 % (25-47); Mean Corpuscular HGB Conc 32 g/dl (31-36); Mean Corpuscular Hemoglobin 24 pg (27-31); Mean Corpuscular Volume 73 fL (80-94); Mean Platelet Volume 7.2 um3 (7.4-10.4); Nucleated Red Blood Cells % 0; Platelet Count 317 10^3/ul (150-450); Red Blood Count 4.79 10^6/ul (4.00-5.40); Red Cell Distribution Width 19 % (10.5-15); White Blood Count 11.1 10^3/ul (3.5-10.8)
[2018-06-20 06:12] LABS: EGFR Non-African American 69.2 (>60)
[2018-06-20] MEDS: amLODIPine TAB* 5 MG PO SCH (09:48)
[2018-06-20] MEDS: Buffered Lidocaine 0.9% SYRIN* 5 ML/SYR SYRINGE INTRADERM ONE (09:48)
[2018-06-20] MEDS: Docusate CAP* 100 MG PO SCH ×2 (09:49→20:56)
[2018-06-20] MEDS: FLUoxetine CAP* 20 MG PO SCH (09:49)
[2018-06-20] MEDS: Atorvastatin* 10 MG TAB PO SCH (09:49)
[2018-06-20] MEDS: NS 0.9% 1000 ML* 1,000 ML IV SCH (11:21)
[2018-06-20] MEDS ORDERED: Bupivacaine 0.5% SDV PF* 30ML VIAL ONE (13:33)
[2018-06-20] MEDS ORDERED: Midazolam* 1 MG/ML 2 ML VIAL (2 MG) ONE (13:33)
[2018-06-20] MEDS ORDERED: Lidocaine 2% PF * 5 ML VIAL ONE (13:57)
[2018-06-20] MEDS ORDERED: Propofol* 10 MG/ML 20 ML BTL IV PUSH ONE (13:57)
[2018-06-20] MEDS ORDERED: Naloxone* 0.4 MG/ML 1 ML VIAL IV PRN (14:47)
[2018-06-20] MEDS: Insulin LISPRO* 1 UNITS UNIT SUBCUT SCH ×3 (16:50→21:06)
--- NOTE | 2018-06-20 17:18 | PN ---
Progress Note - Progress Note Date of Service: 06/20/18 Note: Called to bedside due to patient stating he would like to leave AMA due to concern over his friend Toma giving away his dog while he is hospitalized. Discussed necessity of continued IV antibiotics and return to OR sunday. He is agreeable to this plan after our extensive discussion. He understands that psych has been consulted due to repeated suicidal commentary. He currently states he is not actively suicidal and would not hurt himself though he does feel hopeless and as though he has nothing to live for.
--- NOTE | 2018-06-20 18:56 | PN ---
Subjective Date of Service: 06/20/18 Interval History: patient seen and evaluated in the PACU post op from left heel debridement. Patient reports that he would like to leave,stating that he does not want any further care. discussed with patient the need to stay and the need for further medical management of his heel ulcers and antibiotic therapy. Patient then agreed to stay and be evaluated in the AM. Denies chest pain or shortness of breath. denies abd pain , n/v/d. Patient does report feeling depressed about his continued issues with non-healing ulcers. Family History: Unchanged from Admission Social History: Unchanged from Admission Past Medical History: Unchanged from Admission Objective Active Medications: Acetaminophen (Tylenol Tab*) 975 mg PO Q8H [facility] Last Admin: 06/20/18 16:51 Dose: Not Given Amlodipine Besylate (Norvasc Tab*) 5 mg PO DAILY [facility] Last Admin: 06/20/18 09:48 Dose: Not Given Atorvastatin Calcium (Lipitor*) 5 mg PO DAILY [facility]; Protocol Last Admin: 06/20/18 09:49 Dose: Not Given Dextrose (D50w Syringe 50 Ml*) 12.5 gm IV PUSH .FOR FS < 60 - SS PRN PRN Reason: FS < 60 Diphenhydramine HCl (Benadryl Po*) 25 mg PO Q6H PRN PRN Reason: itching Docusate Sodium (Colace Cap*) 100 mg PO BID [facility] Last Admin: 06/20/18 09:49 Dose: Not Given Fluoxetine HCl (Prozac Cap*) 40 mg PO DAILY [facility] Last Admin: 06/20/18 09:49 Dose: Not Given Piperacillin Sod/Tazobactam (Sod 3.375 gm/ Sodium Chloride) 100 mls @ 25 mls/ hr IVPB Q8H [facility] Last Admin: 06/20/18 17:03 Dose: 25 mls/hr Sodium Chloride (Ns 0.9% 1000 Ml*) 1,000 mls @ 75 mls/hr IV PER RATE [facility] Last Admin: 06/20/18 11:21 Dose: 75 mls/hr Insulin Glargine (Lantus(*)) 58 units SUBCUT Q24H [facility] Insulin Human Lispro (Humalog*) 0 units SUBCUT ACHS [facility]; Protocol Last Admin: 06/20/18 18:17 Dose: 2 unit Lisinopril (Prinivil Tab*) 10 mg PO DAILY [facility] Ondansetron HCl (Zofran Inj*) 4 mg IV Q6H PRN PRN Reason: nausea Pharmacy Consult (Zosyn Per Pharmacy*) 1 note FOLLOW UP .ZOSYN PER [facility] Trazodone HCl (Desyrel Tab*) 25 mg PO BEDTIME PRN PRN Reason: insomnia Vital Signs - 8 hr 06/20/18 06/20/18 06/20/18 11:17 14:43 14:45 Temperature 97.6 F 97.7 F Pulse Rate 82 77 Respiratory 18 22 20 Rate Blood Pressure 160/83 139/77 (mmHg) O2 Sat by Pulse 99 98 Oximetry 06/20/18 06/20/18 06/20/18 14:46 14:50 14:51 Temperature Pulse Rate 76 76 Respiratory 20 Rate Blood Pressure 129/84 127/74 (mmHg) O2 Sat by Pulse 99 95 Oximetry 06/20/18 06/20/18 06/20/18 15:00 15:38 15:39 Temperature 98.0 F 98 F Pulse Rate 72 74 74 Respiratory 20 18 18 Rate Blood Pressure 130/73 145/70 145/70 (mmHg) O2 Sat by Pulse 95 93 93 Oximetry 06/20/18 17:04 Temperature 97.2 F Pulse Rate 79 Respiratory 18 Rate Blood Pressure 178/77 (mmHg) O2 Sat by Pulse 97 Oximetry Oxygen Devices in Use Now: None Appearance: alert , resting in bed, appears depressed, no acute distress Eyes: No Scleral Icterus Ears/Nose/Mouth/Throat: Clear Oropharnyx, Mucous Membranes Moist Neck: NL Appearance and Movements; NL JVP, Trachea Midline Respiratory: Symmetrical Chest Expansion and Respiratory Effort, Clear to Auscultation Cardiovascular: NL Sounds; No Murmurs; No JVD, No Edema Abdominal: NL Sounds; No Tenderness; No Distention Extremities: No Clubbing, Cyanosis, - - dressing dry and intact to left foot , sensation intact to left leg, warm to touch Skin: No Rash or Ulcers, No Nodules or Sclerosis Neurological: Alert and Oriented x 3 Nutrition: Taking PO's Result Diagrams: 06/20/18 05:26 06/20/18 05:26 Microbiology and Other Data: Microbiology 06/19/18 12:00 Skin and Soft Tissue MRSA/MSSA (PCR - Final Foot Left Mrsa Negative S.aureus Negative Gram Stain - Final Wound Culture - Preliminary Pseudomonas Aeruginosa Alcaligenes Species Assess/Plan/Problems-Billing Assessment: Mr. Maldonado is a 58 y.o male with PMHX significant for non-healing foot ulcer, DM , htn and PVD who was admitted by orthopedic to [facility] for debridement of his left heel ulcer. - Patient Problems (1) Non-healing ulcer of left foot Current Visit: No Status: Acute Code(s): L97.529 - NON-PRESSURE CHRONIC ULCER OTH PRT LEFT FOOT W UNSP SEVERITY SNOMED Code(s): 925917967 Comment: OR today for debridement- management per orthopedic PT/OT per orthopedic Zosyn antibiotic (2) Uncontrolled diabetes mellitus Current Visit: No Status: Acute Code(s): E11.65 - TYPE 2 DIABETES MELLITUS WITH HYPERGLYCEMIA SNOMED Code(s): 429005515 Comment: Blood sugar 129-158 fingerstick AC/HS Lispro ss Lantus 58 Units (3) HTN (hypertension) Current Visit: No Status: Chronic Code(s): I10 - ESSENTIAL (PRIMARY) HYPERTENSION SNOMED Code(s): 35793748 Comment: - SBP 130-145 - Continue amlodipine and lisinopril. (4) PVD (peripheral vascular disease) Current Visit: No Status: Chronic Code(s): I73.9 - PERIPHERAL VASCULAR DISEASE, UNSPECIFIED SNOMED Code(s): 925953985 Comment: stable - With associated neuropathy (5) DVT prophylaxis Current Visit: No Status: Acute Code(s): JBJ8740 - SNOMED Code(s): 978638441 Comment: -per orthopedics (6) Full code status Current Visit: No Status: Acute Code(s): Z78.9 - OTHER SPECIFIED HEALTH STATUS SNOMED Code(s): 162078350 Comment: Status and Disposition: inpatient
[2018-06-20] MEDS: Insulin GLARGINE(*) 1 UNITS UNIT SUBCUT SCH (21:04)
[2018-06-21] MEDS: ZOSYN 3.375 GM Q8H per EXTENDED INFUSION IVPB SCH ×6 (01:20→17:47)
[2018-06-21] MEDS: Acetaminophen TAB* 325 MG PO SCH ×3 (03:53→20:08)
--- NOTE | 2018-06-21 06:06 | OP ---
OPERATIVE REPORT: DATE OF OPERATION: 06/20/18 - Inpatient, room U 333-01 DATE OF : 64 SURGEON: Rizwan Walker MD PATTERNMAKER PRESSURE CAST: Patsy Pacheco PA-C ANESTHESIOLOGIST: Pranav Walsh DO. ANESTHESIA: General. PRE-OP DIAGNOSES: Infected osteomyelitic left heel ulcer, diabetes. POST-OP DIAGNOSES: Infected osteomyelitic left heel ulcer, diabetes. OPERATIVE PROCEDURE: Debridement, left heel ulcer. DESCRIPTION OF PROCEDURE: The patient was taken to the operating room where general anesthesia was performed with the thigh tourniquet inflated. We approached the 5 x 5 cm heel ulcer. This was a posterior heel ulcer near the insertion of the Achilles. I took a #10 blade and ellipticized the edges of the wound and I took a 0.5-inch curved osteotome and removed the posterior calcaneus to a depth of about 1 cm. I used a 4-mm power bur to debride the bone and then 3 L pulsatile lavage. We sent the bone and the ulcer for pathology. We packed this with Betadine compression dressing. [id number]/[facility] [place] #: [id number] MTDD
--- NOTE | 2018-06-21 08:32 | PN ---
Progress Note - Progress Note Date of Service: 06/21/18 SOAP: Subjective: 58 y./o male admitted for non-healing L foot ulceration Objective: [] Assessment: [] Plan: - ID- Continue zosyn, awaiting cultures - WBC improving
[2018-06-21] MEDS: Insulin LISPRO* 1 UNITS UNIT SUBCUT SCH ×4 (09:28→21:07)
[2018-06-21] MEDS: amLODIPine TAB* 5 MG PO SCH (09:29)
[2018-06-21] MEDS: Docusate CAP* 100 MG PO SCH ×2 (09:30→20:11)
[2018-06-21] MEDS: FLUoxetine CAP* 20 MG PO SCH (09:30)
[2018-06-21] MEDS: Lisinopril TAB* 10 MG PO SCH (09:30)
[2018-06-21] MEDS: Atorvastatin* 10 MG TAB PO SCH (09:30)
--- NOTE | 2018-06-21 10:37 | CONS ---
CONSULTATION REPORT: DATE OF CONSULT: 06/21/18 REQUESTING PHYSICIAN: Dr. Walker.* CONSULTING SERVICE: Infectious Disease. REASON FOR CONSULT: Left heel ulcer, osteomyelitis. IMPRESSION: 1. In January he had a left foot transmetatarsal amputation for osteomyelitis and wound cultures were negative at that time. In December, a wound culture grew group B strep. He has had a worsening calcaneal wound now and MRI done showed anteroposterior calcaneal marrow edema; talocrural joint effusion; edema in the talus, tibia, and fibula. I suspect at least the calcaneal abnormality is osteomyelitis. He has had incision and debridement, the culture from that procedure is growing Pseudomonas. 2. CEFEPIME has caused interstitial nephritis in the past, but he has tolerated Zosyn for long periods. 3. Morbid obesity. 4. Insulin-dependent diabetes with neuropathy. RECOMMENDATIONS: We will continue Zosyn and plan on a 6 to 8 week course of that assuming the Pseudomonas come back sensitive. I will order a PICC line for him. HISTORY OF PRESENT ILLNESS: This is a 58-year-old man who had a transmetatarsal amputation in the spring, initially did well, had a long course of Zosyn then followed by oral antibiotics. Throughout the summer; however, he developed a calcaneal ulcer, had a wound VAC but still had persistence of the wound. He had the MRI with the results as above. He was admitted for debridement which he had yesterday and tolerated it well. He has had no fevers , chills, sweats, or diarrhea. PAST MEDICAL HISTORY: 1. Morbid obesity. 2. Insulin-dependent diabetes. 3. Left foot partial amputation. 4. Right mid foot amputation. 5. Peripheral vascular disease. 6. Asperger's. 7. Hypertension. MEDICATIONS: 1. Tylenol. 2. Amlodipine. 3. Lipitor. 4. Fluoxetine. 5. Heparin subcutaneous injection. 6. Insulin glargine. 7. Trazodone. 8. Zosyn 3.375 g every 8 hours. ALLERGIES: CEFEPIME caused interstitial nephritis. FAMILY HISTORY: No recurrent infections. SOCIAL HISTORY: He lives by himself. He has a pet dog. He has no travel. REVIEW OF SYSTEMS: All negative except as noted above to a 14-point review of systems. PHYSICAL EXAM: Vital Signs: Temperature 37, heart rate 90, respiratory rate 18 , blood pressure 143/75, oxygen saturation 94% on room air. General: He is awake, not in distress. Neurologic: He is oriented x3, follows all commands. HEENT: There is no conjunctival hemorrhage. Oropharynx without lesions. Neck is supple without mass. Heart is regular rate and rhythm without murmurs, rubs , or gallops. Lungs are clear to auscultation. Abdomen is soft and nontender. There are bowel sounds present. Skin: There is no rash or splinter hemorrhage. Musculoskeletal: The left foot is wrapped. LABORATORY DATA: White blood cell count 11,013, hemoglobin 11, platelets 317, 000. Creatinine is 1.1. Please see impressions and recommendations outlined above. Thanks for asking me to see Mr. Maldonado in consultation. [id number]/[facility] #: [id number] MTDD
[2018-06-21] MEDS: Heparin VIAL(*) 5000 UNITS/ML VIAL (FIVE THOUSAND) SUBCUT SCH ×2 (12:47→20:09)
--- NOTE | 2018-06-21 16:00 | PN ---
Subjective Date of Service: 06/21/18 Interval History: Patient reports pain in his knee, denies chest pain or shortness of breath. denies abd cardenas n/v/d. Denies pain to debridement site. denies calf pain. Agreeable to stay and receive treatment and return to the OR on sunday for further debridement. Family History: Unchanged from Admission Social History: Unchanged from Admission Past Medical History: Unchanged from Admission Objective Active Medications: Acetaminophen (Tylenol Tab*) 975 mg PO Q8H [facility] Last Admin: 06/21/18 11:04 Dose: 975 mg Amlodipine Besylate (Norvasc Tab*) 5 mg PO DAILY [facility] Last Admin: 06/21/18 09:29 Dose: 5 mg Atorvastatin Calcium (Lipitor*) 5 mg PO DAILY [facility]; Protocol Last Admin: 06/21/18 09:30 Dose: 5 mg Dextrose (D50w Syringe 50 Ml*) 12.5 gm IV PUSH .FOR FS < 60 - SS PRN PRN Reason: FS < 60 Diphenhydramine HCl (Benadryl Po*) 25 mg PO Q6H PRN PRN Reason: itching Docusate Sodium (Colace Cap*) 100 mg PO BID [facility] Last Admin: 06/21/18 09:30 Dose: 100 mg Fluoxetine HCl (Prozac Cap*) 40 mg PO DAILY [facility] Last Admin: 06/21/18 09:30 Dose: 40 mg Heparin Sodium (Porcine) (Heparin Vial(*)) 5,000 units SUBCUT Q8H [facility] Last Admin: 06/21/18 12:47 Dose: 5,000 units Piperacillin Sod/Tazobactam (Sod 3.375 gm/ Sodium Chloride) 100 mls @ 25 mls/ hr IVPB Q8H [facility] Last Admin: 06/21/18 09:31 Dose: 25 mls/hr Sodium Chloride (Ns 0.9% 1000 Ml*) 1,000 mls @ 75 mls/hr IV PER RATE [facility] Last Admin: 06/20/18 11:21 Dose: 75 mls/hr Influenza Virus Vaccine (Fluarix *Quad* *) 0.5 ml IM .ONCE ONE Stop: 06/22/18 09:01 Insulin Glargine (Lantus(*)) 58 units SUBCUT Q24H [facility] Last Admin: 06/20/18 21:04 Dose: 58 units Insulin Human Lispro (Humalog*) 0 units SUBCUT ACHS [facility]; Protocol Last Admin: 06/21/18 13:34 Dose: 3 unit Lisinopril (Prinivil Tab*) 10 mg PO DAILY [facility] Last Admin: 06/21/18 09:30 Dose: 10 mg Ondansetron HCl (Zofran Inj*) 4 mg IV Q6H PRN PRN Reason: nausea Pharmacy Consult (Zosyn Per Pharmacy*) 1 note FOLLOW UP .ZOSYN PER PHARMACY [facility] Trazodone HCl (Desyrel Tab*) 25 mg PO BEDTIME PRN PRN Reason: insomnia Vital Signs - 8 hr 06/21/18 06/21/18 06/21/18 08:00 11:29 15:20 Temperature 98.5 F 97.9 F Pulse Rate 76 73 Respiratory 18 18 16 Rate Blood Pressure 127/59 130/63 (mmHg) O2 Sat by Pulse 96 96 Oximetry Oxygen Devices in Use Now: None Appearance: alert, sitting in the chair, no acute distress Eyes: No Scleral Icterus Ears/Nose/Mouth/Throat: Clear Oropharnyx, Mucous Membranes Moist Neck: NL Appearance and Movements; NL JVP, Trachea Midline Respiratory: Symmetrical Chest Expansion and Respiratory Effort, Clear to Auscultation Cardiovascular: NL Sounds; No Murmurs; No JVD Abdominal: NL Sounds; No Tenderness; No Distention, - - obese Extremities: No Clubbing, Cyanosis, - - dressing intact to left foot Skin: - - dressing dry and intact to left foot Nutrition: Taking PO's Result Diagrams: 06/20/18 05:26 06/20/18 05:26 Microbiology and Other Data: Microbiology 06/19/18 12:00 Skin and Soft Tissue MRSA/MSSA (PCR - Final Foot Left Mrsa Negative S.aureus Negative Gram Stain - Final Wound Culture - Preliminary Pseudomonas Aeruginosa Alcaligenes Species Assess/Plan/Problems-Billing Assessment: Mr. Maldonado is a 58 y.o male with PMHX significant for non-healing foot ulcer, DM , htn and PVD who was admitted by orthopedic to [facility] for debridement of his left heel ulcer. - Patient Problems (1) Non-healing ulcer of left foot Current Visit: No Status: Acute Code(s): L97.529 - NON-PRESSURE CHRONIC ULCER OTH PRT LEFT FOOT W UNSP SEVERITY SNOMED Code(s): 605552424 Comment: POD#1 for debridement- management per orthopedic PT/OT per orthopedic Zosyn antibiotic patient to return to the OR on Sunday (2) Uncontrolled diabetes mellitus Current Visit: No Status: Acute Code(s): E11.65 - TYPE 2 DIABETES MELLITUS WITH HYPERGLYCEMIA SNOMED Code(s): 126236532 Comment: Blood sugar 141-155 fingerstick AC/HS Lispro ss Lantus 58 Units (3) HTN (hypertension) Current Visit: No Status: Chronic Code(s): I10 - ESSENTIAL (PRIMARY) HYPERTENSION SNOMED Code(s): 39037222 Comment: stable - SBP 127-130 - Continue amlodipine and lisinopril. (4) PVD (peripheral vascular disease) Current Visit: No Status: Chronic Code(s): I73.9 - PERIPHERAL VASCULAR DISEASE, UNSPECIFIED SNOMED Code(s): 469376753 Comment: stable - With associated neuropathy (5) DVT prophylaxis Current Visit: No Status: Acute Code(s): POV6681 - SNOMED Code(s): 804641896 Comment: -per orthopedics (6) Full code status Current Visit: No Status: Acute Code(s): Z78.9 - OTHER SPECIFIED HEALTH STATUS SNOMED Code(s): 487277690 Comment: Status and Disposition: inpatient
[2018-06-21] MEDS: Insulin GLARGINE(*) 1 UNITS UNIT SUBCUT SCH (21:09)
--- NOTE | 2018-06-21 22:21 | CONS ---
CONSULTATION REPORT: DATE OF CONSULT: 06/21/18 ATTENDING PHYSICIAN: Dr. Rizwan Walker. CONSULTING PHYSICIAN: Dr. Ananda Lau. REASON FOR CONSULT: Depression, rule out suicidal ideations. SUBJECTIVE HISTORY: Psychiatry is asked to see this 58-year-old single white male with a history of autism spectrum disorder, depression, and putative PTSD, who has a complicated medical history of hernandez betes and peripheral vascular disease, who is currently admitted to the orthopedic surgeon due to a n onhealing ulcer on his left heel. The physician's assistant store manager operations, Patsy Pacheco, who entered the consult, was unavailable on the date of consultation, so I spoke to the consulting hospitalist nurse practiti vikas, Di Sandy, who reports that the patient has had numerous recent hospitalizations due to complications of peripheral vascular disease and diabetes. He appears to be feeling down, has questi onable adherence in the outpatient setting and was alleged to have wanted to leave the hospital again st medical advice 1 day prior. He does have a history of depression and several previous bilateral a mputations on his lower extremities. Although he had denied suicidal ideations, staff on the douglas or indicated that he has made dejected hopeless statements and they felt that he would benefit from p sychiatric consult. When I meet with the patient, he is in better spirits and is agreeable to staying in the hospital having his next procedure on Sunday and is hopeful for discharge on Sunday. He goode s indicate that he has several things to look forward to including great relationship with a friend n giovana, Millie, and caring for his dog and cat. The patient does endorse that he had suffered from depr ession in the past, most recently having seen Dr. Valdez Juarez at the [facility] up until approximately 4 years ago. That clinic started him on treatment with fluoxetine a nd his primary care provider, Dr. Greene, at the [facility] has continued it since. The patient e ndorses multiple symptoms of depression including irritability, melancholic mood, sleeplessness, anhe donia, feelings of guilt, poor energy, poor concentration, psychomotor retardation, although he denie s suicidal ideations or thoughts of harming others. I screened him for history of higinio or psychosis and he denies these. He is willing to be re-enrolled at the [facility] an d he is similarly agreeable to an adjustment in his antidepressant. The patient is calm and cooperat saad throughout my evaluation. PSYCHIATRIC HISTORY: The patient was 13 years old when due to behavioral problems he was sent to a [employer]. There, he was treated with Thorazine between the ages of 13 and 15. Thereafter, he went without psychiatric treatment until the year 2012 when he made a parasuicidal s tatement to a friend of his who called his credit risk review officer who had him committed for [address] [facility] psychiatric facility in [facility]. He remembers being placed on a psychotropic medicati on at that time but cannot recall the name of it and stated that it gave him side effects and he stop ped taking it. His next treatment experience was at [facility] where he sa w a therapist whose name he does not recall and psychiatrist, Dr. Valdez Juarez. He was started o n fluoxetine initially at 20 mg, which was titrated to 40 mg and he has been on this faithfully for s everal years. The patient states that he saw a psychologist several years ago in [place], who gave him psychological testing and diagnosed him with autism spectrum disorder. SUBSTANCE ABUSE HISTORY: The patient tried alcohol and cannabis in college, but never took to it. Vale madrid was a smoker for a number of years, having quit approximately 3 years ago. PAST MEDICAL HISTORY: Significant for hypertension, insulin-dependent diabetes, peripheral vascular disease with multiple prior surgeries including bilateral midfoot amputations, and complications with anesthesia to those procedures. CURRENT MEDICATIONS: Include: 1. Tylenol. 2. Maalox. 3. Amlodipine. 4. Prozac. 5. Lantus. 6. Humalog. 7. Iron. 8. Lisinopril. 9. Pravastatin. ALLERGIES: To CEFEPIME. FAMILY HISTORY: The patient was adopted. He knows very little about his adoptive family. SOCIAL HISTORY: The patient was born to a single mother in [place], who promptly gave him up to ado ption to his adoptive family and he was raised in [place]. His adoptive father tended to show favo ritism towards his younger brother, who was his parent's biological son. He has no other siblings. His parents stayed together until he was approximately 13 years old at which time they and vale madrid went to a therapeutic boarding school and then resided with his mother and step-father. 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 His brother and his mother are still alive and reside in [place] re[place] his father was in 2016. The patient has never been , has no children. For the l ast 15 years, he has been on disability. The patient was [place] in [place] [employer]; however, he is now agnostic. He does have a significant legal history, in that at the age of 41, he made a terroris tic threat towards the group home counselor of an internet chat room. This was a federal offence and he was arrested by the FBI and claims to have PTSD from the experience where they apprehended him violently in his apartment. He never served nursing home but does have a felony record for this. Currently, the ana del castillo lives alone in a [facility] in [place], [place]. MENTAL STATUS EXAM: The patient is a middle-aged white male who is overweight, dressed in a patient gown. It is very clear that he has had amputations of bilateral feet; however, I do observe him ambu lating using a walker from the bathroom to his chair. He is calm, cooperative, easy to establish a r apport with, and makes good eye contact. Speech has a normal rate, tone, and volume and he has an ex cellent vocabulary. Mood would appear to be slightly dysthymic with somewhat irritable affect. Thou ght process linear, goal directed. Thought content is significant for his desire to get out of the h ospital. He denies suicidal or homicidal ideations. He denies auditory or visual hallucinations. I nsight and judgment are fair given his willingness to stay in the hospital and receive treatment. Co gnitively, he is awake and alert with what would appear to be an average intellect. DIAGNOSES: Rexford I: Major depressive disorder, recurrent, moderate; autism spectrum disorder by hist ory; posttraumatic stress disorder by history. Rexford II: Deferred. ASSESSMENT: The patient is a 58-year-old single white male with a history of autism spectrum disorde r, depression, and posttraumatic stress disorder, who also has medical comorbidities of diabetes and peripheral vascular disease, who is admitted to the orthopedic service for surgical debridement of a left ankle ulcer. He was observed to be irritable, depressed, and demanding discharge, making stateme nts that made the primary team question whether he harbors suicidal ideation. At this time, he is st eadfastly denying any suicidality, although he is endorsing numerous neurovegetative symptoms of depr ession. RECOMMENDATIONS TO PRIMARY TEAM: Psychiatry has already consulted social work team to see if the gaurang juárez can be re-enrolled in treatment at the [facility] which he is agreeabl e to. He is similarly agreeable to increasing his dose of fluoxetine from 40 to 60 mg, which this cl inician will go ahead and order. I do not believe that he is suicidal or threat to himself. I do no t believe that he would benefit from inpatient psychiatric treatment at this time. I will, however, follow up with him when I am back on service on 06/24/18, and make any further recommendation s at that time as necessary. It has been a pleasure meeting Mr. Maldonado and thank you for the interest ing consult. [id number]/[facility] #: [id number]
[2018-06-22] MEDS: ZOSYN 3.375 GM Q8H per EXTENDED INFUSION IVPB SCH ×4 (01:18→09:09)
[2018-06-22] MEDS: Acetaminophen TAB* 325 MG PO SCH ×3 (04:00→20:52)
[2018-06-22] MEDS: Heparin VIAL(*) 5000 UNITS/ML VIAL (FIVE THOUSAND) SUBCUT SCH ×3 (04:02→20:53)
[2018-06-22 04:52] LABS: ABS Basophils 0.1 10^3/ul (0-0.2); ABS Eosinophils 0.5 10^3/ul (0-0.6); ABS Monocytes 1.1 10^3/ul (0-0.8); ABS Neutrophils 6.9 10^3/ul (1.5-7.7); ABS Nucleated RBC 0 10^3/ul; Eosinophil % 5.1 % (0-6); Hematocrit 36 % (42-52); Hemoglobin 11.1 g/dl (14.0-18.0); Lymphocyte % 10.8 % (25-47); Mean Corpuscular HGB Conc 31 g/dl (31-36); Mean Corpuscular Hemoglobin 23 pg (27-31); Mean Corpuscular Volume 75 fL (80-94); Mean Platelet Volume 7.1 um3 (7.4-10.4); Nucleated Red Blood Cells % 0; Platelet Count 296 10^3/ul (150-450); Red Blood Count 4.78 10^6/ul (4.00-5.40); Red Cell Distribution Width 18 % (10.5-15); White Blood Count 9.6 10^3/ul (3.5-10.8)
[2018-06-22] MEDS: Docusate CAP* 100 MG PO SCH ×2 (08:10→20:52)
[2018-06-22] MEDS: Insulin LISPRO* 1 UNITS UNIT SUBCUT SCH ×4 (08:47→20:53)
[2018-06-22] MEDS: FLUoxetine CAP* 20 MG PO SCH (09:10)
[2018-06-22] MEDS: Lisinopril TAB* 10 MG PO SCH (09:11)
[2018-06-22] MEDS: amLODIPine TAB* 5 MG PO SCH (09:11)
[2018-06-22] MEDS: Atorvastatin* 10 MG TAB PO SCH (09:11)
[2018-06-22] MEDS: NS 0.9% 1000 ML* 1,000 ML IV SCH (10:32)
--- NOTE | 2018-06-22 12:01 | PN ---
Subjective Date of Service: 06/22/18 Interval History: Mr. Maldonado denies complaint today other than frustration and continuing to have issues with the ulcer on left heel. He denies chest pain, SOB, nausea, or abdominal pain. Objective Active Medications: Acetaminophen (Tylenol Tab*) 975 mg PO Q8H [facility] Amlodipine Besylate (Norvasc Tab*) 5 mg PO DAILY [facility] Atorvastatin Calcium (Lipitor*) 5 mg PO DAILY [facility]; Protocol Dextrose (D50w Syringe 50 Ml*) 12.5 gm IV PUSH .FOR FS < 60 - SS PRN Diphenhydramine HCl (Benadryl Po*) 25 mg PO Q6H PRN Docusate Sodium (Colace Cap*) 100 mg PO BID [facility] Fluoxetine HCl (Prozac Cap*) 60 mg PO DAILY [facility] Heparin Sodium (Porcine) (Heparin Vial(*)) 5,000 units SUBCUT Q8H [facility] Piperacillin Sod/Tazobactam (Sod 3.375 gm/ Sodium Chloride) 100 mls @ 25 mls/ hr IVPB Q8H [facility] Sodium Chloride (Ns 0.9% 1000 Ml*) 1,000 mls @ 75 mls/hr IV PER RATE [facility] Insulin Glargine (Lantus(*)) 58 units SUBCUT Q24H [facility] Insulin Human Lispro (Humalog*) 0 units SUBCUT ACHS [facility]; Protocol Lisinopril (Prinivil Tab*) 10 mg PO DAILY [facility] Ondansetron HCl (Zofran Inj*) 4 mg IV Q6H PRN Pharmacy Consult (Zosyn Per Pharmacy*) 1 note FOLLOW UP .ZOSYN PER PHARMACY [facility] Trazodone HCl (Desyrel Tab*) 25 mg PO BEDTIME PRN Vital Signs: Temp Pulse Resp BP Pulse Ox 97.6 F 60 16 123/64 97 06/22/18 07:48 06/22/18 07:48 06/22/18 08:00 06/22/18 07:48 06/22/18 07:48 Oxygen Devices in Use Now: None Appearance: Male sitting up in chair in NAD Eyes: No Scleral Icterus Ears/Nose/Mouth/Throat: Mucous Membranes Moist Respiratory: Symmetrical Chest Expansion and Respiratory Effort, Clear to Auscultation Cardiovascular: NL Sounds; No Murmurs; No JVD, No Edema Abdominal: NL Sounds; No Tenderness; No Distention Extremities: No Edema Skin: - - Left foot with dressing CDI Neurological: Alert and Oriented x 3, NL Muscle Strength and Tone Result Diagrams: 06/22/18 04:32 06/20/18 05:26 Microbiology and Other Data: Vital Signs: Temp Pulse Resp BP Pulse Ox 97.6 F 60 16 123/64 97 06/22/18 07:48 06/22/18 07:48 06/22/18 08:00 06/22/18 07:48 06/22/18 07:48 Assess/Plan/Problems-Billing Assessment: Mr. Maldonado is a 58 yo male with PMHX significant for non-healing foot ulcer, DM, HTN and PVD who was admitted by orthopedic surgery for debridement of his left heel ulcer. - Patient Problems (1) Non-healing ulcer of left foot Comment: - POD#2 for debridement- management per orthopedic - ID consult appreciated, plan to switch to levaquin and flagyl based on wound culture and sensitivity results pending review by ID on Sunday. - Patient to return to the OR on Sunday (2) Diabetes Comment: - BGs 120-170, well- controlled. - Continue lantus with lispro SSI coverage for meals. - Has associated CKD, PVD, and diabetic foot ulcer. (3) HTN (hypertension) Comment: - SBP 120-140s - Continue amlodipine and lisinopril. (4) Chronic kidney disease Comment: - Mild, stage 2 - Secondary to diabetes and hypertension (5) PTSD (post-traumatic stress disorder) Comment: - Appreciate psych consult for depression, no suicidal ideation or need for inpatient psych care. - Recommended increased dose fluoxetine (6) DVT prophylaxis Comment: - Heparin per ortho. (7) Full code status Comment: Status and Disposition: Inpatient. Disposition per ortho.
[2018-06-22] MEDS ORDERED: metroNIDAZOLE IV 500 MG/100ML* 500 MG/100 ML BAG IVPB SCH (13:00)
--- NOTE | 2018-06-22 13:07 | PN ---
Progress Note - Progress Note Date of Service: 06/22/18 SOAP: Subjective: Pt doing well with no pain. Denies F/C, CP/SOB. No calf pain Objective: 58 y/o WDWN M NAD, A&Ox3 LLE- dressing c/d/i, no surrounding erythema, calf soft NT, NVI Vital Signs Temp Pulse Resp BP Pulse Ox 98.6 F 71 16 146/59 96 06/22/18 11:38 06/22/18 11:38 06/22/18 11:38 06/22/18 11:38 06/22/18 11:38 Laboratory Results - last 24 hr 06/21/18 06/21/18 06/22/18 17:46 20:46 04:32 WBC 9.6 RBC 4.78 Hgb 11.1 L Hct 36 L MCV 75 L MCH 23 L MCHC 31 RDW 18 H Plt Count 296 MPV 7.1 L Neut % (Auto) 72.2 Lymph % (Auto) 10.8 L [place] % (Auto) 11.3 H Eos % (Auto) 5.1 Baso % (Auto) 0.6 Absolute Neuts (auto) 6.9 Absolute Lymphs (auto) 1.0 Absolute Monos (auto) 1.1 H Absolute Eos (auto) 0.5 Absolute Basos (auto) 0.1 Absolute Nucleated RBC 0 Nucleated RBC % 0 POC Glucose (mg/dL) 159 H 178 H 06/22/18 06/22/18 08:04 11:51 WBC RBC Hgb Hct MCV MCH MCHC RDW Plt Count MPV Neut % (Auto) Lymph % (Auto) [place] % (Auto) Eos % (Auto) Baso % (Auto) Absolute Neuts (auto) Absolute Lymphs (auto) Absolute Monos (auto) Absolute Eos (auto) Absolute Basos (auto) Absolute Nucleated RBC Nucleated RBC % POC Glucose (mg/dL) 120 H 139 H Assessment: Non healing left foot ulceration 2 days S/P debridement Plan: Cont IV abx per ID/medicine based on cultures NWB LLE WBC improving now WNL- cont to monitor Plan back to OR sunday 06/24 for wound vac placement
[2018-06-22] MEDS: Levofloxacin 750 MG IVPREMIX(* 750 MG/150 ML BAG IVPB SCH (13:39)
[2018-06-22] MEDS: metroNIDAZOLE IV 500 MG/100ML* 500 MG/100 ML BAG IVPB SCH ×2 (15:15→22:19)
[2018-06-22] MEDS: Insulin GLARGINE(*) 1 UNITS UNIT SUBCUT SCH (20:54)
[2018-06-23] MEDS: Heparin VIAL(*) 5000 UNITS/ML VIAL (FIVE THOUSAND) SUBCUT SCH ×3 (03:37→22:09)
[2018-06-23] MEDS: Acetaminophen TAB* 325 MG PO SCH ×3 (03:37→20:42)
[2018-06-23] MEDS: metroNIDAZOLE IV 500 MG/100ML* 500 MG/100 ML BAG IVPB SCH ×3 (06:25→22:13)
[2018-06-23] MEDS: Insulin LISPRO* 1 UNITS UNIT SUBCUT SCH ×4 (07:48→22:11)
--- NOTE | 2018-06-23 07:52 | PN ---
Subjective Date of Service: 06/23/18 Interval History: Mr. Maldonado reports feeling well today. He denies any acute complaint including chest pain, SOB, nausea, or abdominal pain. Family History: Unchanged from Admission Social History: Unchanged from Admission Past Medical History: Unchanged from Admission Objective Active Medications: Acetaminophen (Tylenol Tab*) 975 mg PO Q8H [facility] Amlodipine Besylate (Norvasc Tab*) 5 mg PO DAILY [facility] Atorvastatin Calcium (Lipitor*) 5 mg PO DAILY [facility]; Protocol Dextrose (D50w Syringe 50 Ml*) 12.5 gm IV PUSH .FOR FS < 60 - SS PRN Diphenhydramine HCl (Benadryl Po*) 25 mg PO Q6H PRN Docusate Sodium (Colace Cap*) 100 mg PO BID [facility] Fluoxetine HCl (Prozac Cap*) 60 mg PO DAILY [facility] Heparin Sodium (Porcine) (Heparin Vial(*)) 5,000 units SUBCUT Q8H [facility] Levofloxacin/Dextrose (Levaquin 750 Mg Ivpremix(*)) 750 mg in 150 mls @ 100 mls /hr IVPB Q24H [facility] Metronidazole/Sodium Chloride (Flagyl 500 Mg Ivpb*) 500 mg in 100 mls @ 100 mls /hr IVPB Q8HR [facility] Insulin Glargine (Lantus(*)) 58 units SUBCUT Q24H [facility] Insulin Human Lispro (Humalog*) 0 units SUBCUT ACHS [facility]; Protocol Lisinopril (Prinivil Tab*) 10 mg PO DAILY [facility] Ondansetron HCl (Zofran Inj*) 4 mg IV Q6H PRN Pharmacy Consult (Zosyn Per Pharmacy*) 1 note FOLLOW UP .ZOSYN PER PHARMACY [facility] Trazodone HCl (Desyrel Tab*) 25 mg PO BEDTIME PRN Vital Signs: Temp Pulse Resp BP Pulse Ox 98.4 F 65 18 153/75 97 06/23/18 07:15 06/23/18 07:15 06/23/18 07:27 06/23/18 07:15 06/23/18 07:15 Oxygen Devices in Use Now: None Appearance: Male sitting up in chair in NAD Eyes: No Scleral Icterus Ears/Nose/Mouth/Throat: Mucous Membranes Moist Neck: Trachea Midline Respiratory: Symmetrical Chest Expansion and Respiratory Effort, Clear to Auscultation Cardiovascular: NL Sounds; No Murmurs; No JVD, No Edema Abdominal: NL Sounds; No Tenderness; No Distention Extremities: No Edema Skin: No Rash or Ulcers Neurological: Alert and Oriented x 3, NL Muscle Strength and Tone Nutrition: Taking PO's Result Diagrams: 06/22/18 04:32 06/20/18 05:26 Microbiology and Other Data: . Assess/Plan/Problems-Billing Assessment: Mr. Maldonado is a 58 yo male with PMHX significant for non-healing foot ulcer, DM, HTN and PVD who was admitted by orthopedic surgery for debridement of his left heel ulcer. - Patient Problems (1) Non-healing ulcer of left foot Comment: - POD#3 for debridement- management per orthopedic surgery - ID consult appreciated, plan to switch to levaquin and flagyl based on wound culture and sensitivity results pending review by ID on Sunday. - Patient to return to the OR on Sunday (2) Diabetes Comment: - BGs 90-170, well- controlled. - Continue lantus with lispro SSI coverage for meals. - Has associated CKD, PVD, and diabetic foot ulcer. (3) HTN (hypertension) Comment: - SBP 120-140s - Continue amlodipine and lisinopril. (4) Chronic kidney disease Comment: - Mild, stage 2 - Secondary to diabetes and hypertension (5) PTSD (post-traumatic stress disorder) Comment: - Appreciate psych consult for depression, no suicidal ideation or need for inpatient psych care. - Recommended increased dose fluoxetine. (6) DVT prophylaxis Comment: - Heparin per ortho. (7) Full code status Comment: Status and Disposition: Inpatient. Disposition per ortho.
[2018-06-23] MEDS: FLUoxetine CAP* 20 MG PO SCH (08:19)
[2018-06-23] MEDS: Lisinopril TAB* 10 MG PO SCH (08:20)
[2018-06-23] MEDS: amLODIPine TAB* 5 MG PO SCH (08:20)
[2018-06-23] MEDS: Docusate CAP* 100 MG PO SCH ×2 (08:20→22:08)
[2018-06-23] MEDS: Atorvastatin* 10 MG TAB PO SCH (08:20)
--- NOTE | 2018-06-23 11:00 | PN ---
Progress Note - Progress Note Date of Service: 06/23/18 SOAP: Subjective: Pt is doing well. Pain controlled. Denies F/C, CP SOB or calf pain Objective: 58 y/o WDWN M NAD A&Ox3 LLE- dressing c/d/i, calf soft NT, NVI Vital Signs Temp Pulse Resp BP Pulse Ox 98.4 F 65 18 153/75 97 06/23/18 07:15 06/23/18 07:15 06/23/18 07:27 06/23/18 07:15 06/23/18 07:15 Laboratory Results - last 24 hr 06/22/18 06/22/18 06/22/18 11:51 17:28 20:44 POC Glucose (mg/dL) 139 H 129 H 167 H Assessment: Non healing left foot ulceration 3 days S/P debridement Plan: Cont IV abx per ID/medicine based on cultures NWB LLE Hold heparin after last dose today NPO after midnight Plan back to OR sunday 06/24
[2018-06-23] MEDS: Levofloxacin 750 MG IVPREMIX(* 750 MG/150 ML BAG IVPB SCH (12:22)
[2018-06-23] MEDS: Insulin GLARGINE(*) 1 UNITS UNIT SUBCUT SCH (22:11)
[2018-06-24] MEDS: Acetaminophen TAB* 325 MG PO SCH ×3 (04:50→20:56)
[2018-06-24] MEDS: metroNIDAZOLE IV 500 MG/100ML* 500 MG/100 ML BAG IVPB SCH ×3 (06:21→23:03)
[2018-06-24] MEDS: Insulin LISPRO* 1 UNITS UNIT SUBCUT SCH ×4 (09:55→20:54)
[2018-06-24] MEDS: FLUoxetine CAP* 20 MG PO SCH (11:22)
[2018-06-24] MEDS: Lisinopril TAB* 10 MG PO SCH (11:22)
[2018-06-24] MEDS: Docusate CAP* 100 MG PO SCH ×2 (11:22→20:56)
[2018-06-24] MEDS: amLODIPine TAB* 5 MG PO SCH (11:23)
[2018-06-24] MEDS: Atorvastatin* 10 MG TAB PO SCH (11:23)
--- NOTE | 2018-06-24 11:35 | CONSULT ---
Identification - Patient Identification Reason for Psychiatric Consultation: Patient Distress -: Patient is a 58 year old, M admitted on 06/19/18. - MHU Identification Employment Status: Disabled Hx Psychiatric Hospitalization: Yes History - Objective HPI: Main was seen for follow up today by the psychiatry team. He is in fairly good spirits and has had no further considerations for signing out of the hospital AMA. He is tolerating the mild increase in his fluoxetine dose well and remains willing to get reconnected with outpatient care at [facility] after discharge. He's uncertain about when his surgical debridement will be this afternoon, but remains hopeful that he will perhaps be discharged to home tomorrow or Sunday. He continues to deny SI or HI. Exam Appearance: Obese Hygiene: Normal Grooming: Fairly Well Kept Psychomotor Activities: Normal Exhibits Abnormal Movement: No Attitude and Relatedness: Cooperative Eye Contact: Good - Speech Quality: Unpressured Latencies: Normal Quantity: Appropriate Patient's Decription of Mood: "Good" Observed Affect: Good Affect Consistent with: Euthymia Patient's Thought Process: Coherent Thought Content: No Passive Wish, No Suicidal Planning, No Homicidal Ideation, No Paranoid Ideation Experiencing Hallucinations: No, Sensorium is Clear Type of Hallucinations: Visual: No, Auditory: No, Command: No Level of Consciousness: Alert Orientation: Yes Intact, Yes Orientated to Time, Yes Orientated to Place, Yes Orientated to Person Impulse Control: Intact Insight and Judgement: Good Impression - Impression Clinical Impression: 58 y.o. single, never , white male with a history of autism-spectrum disorder and depression with comorbid diabetes and peripheral vascular disease, currently admitted to the orthopedic service for surgical and IV antibiotic treatment of a non-healing ulcer of his left heal, who is evaluated for depression. Inpatient DSM-V Dx: F33.1 Merits Inpatient Hospitalization: No Problem List - MHU Problems Type of Problem: Mood Status of Problem: Active Plan - Treatment Plan Treatment Plan: The patient is psychiatrically cleared for discharge home, pending medical readiness for such. He is agreeable with resumption of services at [facility] and I have consulted the service to make appropriate referrals. I have also increased his fluoxetine from 40 to 60mg daily, which he is tolerating well. Psychiatry is signing off but can be reconsulted in the event of any significant changes in his presentation. Thank you. Continued Medication Management: Continue Outpt Medication Medications: Current Medications Acetaminophen (Tylenol Tab*) 975 mg PO Q8H [facility] Last Admin: 06/24/18 04:50 Dose: Not Given Amlodipine Besylate (Norvasc Tab*) 5 mg PO DAILY [facility] Last Admin: 06/24/18 11:23 Dose: 5 mg Atorvastatin Calcium (Lipitor*) 5 mg PO DAILY [facility]; Protocol Last Admin: 06/24/18 11:23 Dose: 5 mg Dextrose (D50w Syringe 50 Ml*) 12.5 gm IV PUSH .FOR FS < 60 - SS PRN PRN Reason: FS < 60 Diphenhydramine HCl (Benadryl Po*) 25 mg PO Q6H PRN PRN Reason: itching Docusate Sodium (Colace Cap*) 100 mg PO BID [facility] Last Admin: 06/24/18 11:22 Dose: Not Given Fluoxetine HCl (Prozac Cap*) 60 mg PO DAILY [facility] Last Admin: 06/24/18 11:22 Dose: 60 mg Levofloxacin/Dextrose (Levaquin 750 Mg Ivpremix(*)) 750 mg in 150 mls @ 100 mls /hr IVPB Q24H [facility] Last Admin: 06/23/18 12:22 Dose: 100 mls/hr Metronidazole/Sodium Chloride (Flagyl 500 Mg Ivpb*) 500 mg in 100 mls @ 100 mls /hr IVPB Q8HR [facility] Last Admin: 06/24/18 06:21 Dose: 100 mls/hr Insulin Glargine (Lantus(*)) 58 units SUBCUT Q24H [facility] Last Admin: 06/23/18 22:11 Dose: 58 units Insulin Human Lispro (Humalog*) 0 units SUBCUT ACHS [facility]; Protocol Last Admin: 06/24/18 09:55 Dose: Not Given Lisinopril (Prinivil Tab*) 10 mg PO DAILY [facility] Last Admin: 06/24/18 11:22 Dose: 10 mg Ondansetron HCl (Zofran Inj*) 4 mg IV Q6H PRN PRN Reason: nausea Pharmacy Consult (Zosyn Per Pharmacy*) 1 note FOLLOW UP .ZOSYN PER PHARMACY [facility] Trazodone HCl (Desyrel Tab*) 25 mg PO BEDTIME PRN PRN Reason: insomnia - Discharge Plan Discharge Plan: Outpatient Follow Up Outpatient Program: [facility]
--- NOTE | 2018-06-24 12:45 | PN ---
Progress Note - Progress Note Date of Service: 06/24/18 SOAP: Subjective: []Patient seen and examined at bedside with Dr Walker. He feels well and is agreeable to treatment plan. Objective: []General: Well appearing, NAD LLE: Left heel wound dressing changed. 50% slough, 50% granulation tissue. Packed with betadine guaze. Calves supple and nontender without erythema, edema or palpable cords. Assessment: []Non healing left foot ulceration S/P debridement Plan: Cont IV zosyn, PICC line ordered today NWB LLE Twice daily wet to dry betadine dressings for the next several days to be performed by nursing staff. Ortho PA will change with nursing once daily to monitor progress Vital Signs Temp 98.1 F 06/24/18 11:04 Pulse 68 06/24/18 11:04 Resp 16 06/24/18 11:04 BP 142/65 06/24/18 11:04 Pulse Ox 97 06/24/18 11:04 Intake & Output 06/23/18 06/24/18 06/24/18 18:59 06:59 18:59 Intake Total 1030 750 0 Output Total 1850 1900 750 Balance -820 -1150 -750 Intake: Oral 1030 750 0 Output: Urine 1850 1900 750 Laboratory Last Values WBC 9.6 10^3/ul (3.5-10.8) 06/22/18 04:32 RBC 4.78 10^6/ul (4.00-5.40) 06/22/18 04:32 Hgb 11.1 g/dl (14.0-18.0) L 06/22/18 04:32 Hct 36 % (42-52) L 06/22/18 04:32 MCV 75 fL (80-94) L 06/22/18 04:32 MCH 23 pg (27-31) L 06/22/18 04:32 MCHC 31 g/dl (31-36) 06/22/18 04:32 RDW 18 % (10.5-15) H 06/22/18 04:32 Plt Count 296 10^3/ul (150-450) 06/22/18 04:32 MPV 7.1 um3 (7.4-10.4) L 06/22/18 04:32 Neut % (Auto) 72.2 % (38-83) 06/22/18 04:32 Lymph % (Auto) 10.8 % (25-47) L 06/22/18 04:32 [place] % (Auto) 11.3 % (0-7) H 06/22/18 04:32 Eos % (Auto) 5.1 % (0-6) 06/22/18 04:32 Baso % (Auto) 0.6 % (0-2) 06/22/18 04:32 Absolute Neuts (auto) 6.9 10^3/ul (1.5-7.7) 06/22/18 04:32 Absolute Lymphs (auto) 1.0 10^3/ul (1.0-4.8) 06/22/18 04:32 Absolute Monos (auto) 1.1 10^3/ul (0-0.8) H 06/22/18 04:32 Absolute Eos (auto) 0.5 10^3/ul (0-0.6) 06/22/18 04:32 Absolute Basos (auto) 0.1 10^3/ul (0-0.2) 06/22/18 04:32 Absolute Nucleated RBC 0 10^3/ul 06/22/18 04:32 Nucleated RBC % 0 06/22/18 04:32 INR (Anticoag Therapy) 1.06 (0.77-1.02) H 06/19/18 17:43 APTT 32.1 seconds (26.0-36.3) 06/19/18 17:43 Sodium 135 mmol/L (135-145) 06/20/18 05:26 Potassium 4.3 mmol/L (3.5-5.0) 06/20/18 05:26 Chloride 103 mmol/L (101-111) 06/20/18 05:26 Carbon Dioxide 25 mmol/L (22-32) 06/20/18 05:26 Anion Gap 7 mmol/L (2-11) 06/20/18 05:26 BUN 22 mg/dL (6-24) 06/20/18 05:26 Creatinine 1.10 mg/dL (0.67-1.17) 06/20/18 05:26 Est GFR ( Amer) 83.8 (>60) 06/20/18 05:26 Est GFR (Non-Af Amer) 69.2 (>60) 06/20/18 05:26 BUN/Creatinine Ratio 20.0 (8-20) 06/20/18 05:26 Glucose 158 mg/dL (70-100) H 06/20/18 05:26 POC Glucose (mg/dL) 102 mg/dL (70-100) H 06/24/18 12:08 Calcium 8.5 mg/dL (8.6-10.3) L 06/20/18 05:26
[2018-06-24] MEDS: Levofloxacin 750 MG IVPREMIX(* 750 MG/150 ML BAG IVPB SCH (13:49)
[2018-06-24] MEDS: Heparin VIAL(*) 5000 UNITS/ML VIAL (FIVE THOUSAND) SUBCUT SCH ×2 (16:16→23:07)
--- NOTE | 2018-06-24 16:38 | PN ---
Subjective Date of Service: 06/24/18 Interval History: no complaints today , sitting in the chair . denies leg or foot pain. Denies chest pain or shortness of breath. Denies abd pain n/v/d. Family History: Unchanged from Admission Social History: Unchanged from Admission Past Medical History: Unchanged from Admission Objective Active Medications: Acetaminophen (Tylenol Tab*) 975 mg PO Q8H [facility] Last Admin: 06/24/18 12:11 Dose: Not Given Amlodipine Besylate (Norvasc Tab*) 5 mg PO DAILY [facility] Last Admin: 06/24/18 11:23 Dose: 5 mg Atorvastatin Calcium (Lipitor*) 5 mg PO DAILY [facility]; Protocol Last Admin: 06/24/18 11:23 Dose: 5 mg Dextrose (D50w Syringe 50 Ml*) 12.5 gm IV PUSH .FOR FS < 60 - SS PRN PRN Reason: FS < 60 Diphenhydramine HCl (Benadryl Po*) 25 mg PO Q6H PRN PRN Reason: itching Docusate Sodium (Colace Cap*) 100 mg PO BID [facility] Last Admin: 06/24/18 11:22 Dose: Not Given Fluoxetine HCl (Prozac Cap*) 60 mg PO DAILY [facility] Last Admin: 06/24/18 11:22 Dose: 60 mg Heparin Sodium (Porcine) (Heparin Vial(*)) 5,000 units SUBCUT Q8HR [facility] Last Admin: 06/24/18 16:16 Dose: 5,000 units Levofloxacin/Dextrose (Levaquin 750 Mg Ivpremix(*)) 750 mg in 150 mls @ 100 mls /hr IVPB Q24H [facility] Last Admin: 06/24/18 13:49 Dose: 100 mls/hr Metronidazole/Sodium Chloride (Flagyl 500 Mg Ivpb*) 500 mg in 100 mls @ 100 mls /hr IVPB Q8HR [facility] Last Admin: 06/24/18 16:16 Dose: 100 mls/hr Insulin Glargine (Lantus(*)) 58 units SUBCUT Q24H [facility] Last Admin: 06/23/18 22:11 Dose: 58 units Insulin Human Lispro (Humalog*) 0 units SUBCUT ACHS [facility]; Protocol Last Admin: 06/24/18 12:10 Dose: Not Given Lisinopril (Prinivil Tab*) 10 mg PO DAILY [facility] Last Admin: 06/24/18 11:22 Dose: 10 mg Ondansetron HCl (Zofran Inj*) 4 mg IV Q6H PRN PRN Reason: nausea Trazodone HCl (Desyrel Tab*) 25 mg PO BEDTIME PRN PRN Reason: insomnia Vital Signs - 8 hr 06/24/18 11:04 Temperature 98.1 F Pulse Rate 68 Respiratory 16 Rate Blood Pressure 142/65 (mmHg) O2 Sat by Pulse 97 Oximetry Oxygen Devices in Use Now: None Appearance: alert , sitting in the chair no acute distress Eyes: No Scleral Icterus Ears/Nose/Mouth/Throat: Clear Oropharnyx, Mucous Membranes Moist Neck: NL Appearance and Movements; NL JVP, Trachea Midline Respiratory: Symmetrical Chest Expansion and Respiratory Effort, Clear to Auscultation Cardiovascular: NL Sounds; No Murmurs; No JVD, No Edema Abdominal: NL Sounds; No Tenderness; No Distention Extremities: No Clubbing, Cyanosis Skin: No Rash or Ulcers, - - dressing intact to left foot Neurological: Alert and Oriented x 3 Nutrition: Taking PO's Result Diagrams: 06/22/18 04:32 06/20/18 05:26 Microbiology and Other Data: . Assess/Plan/Problems-Billing Assessment: Mr. Maldonado is a 58 yo male with PMHX significant for non-healing foot ulcer, DM, HTN and PVD who was admitted by orthopedic surgery for debridement of his left heel ulcer. - Patient Problems (1) Non-healing ulcer of left foot Current Visit: No Status: Acute Code(s): L97.529 - NON-PRESSURE CHRONIC ULCER OTH PRT LEFT FOOT W UNSP SEVERITY SNOMED Code(s): 527547785 Comment: - POD#4 for debridement- management per orthopedic surgery - ID consult appreciated, on levaquin and flagyl - culture sensitive to levaquin - Patient to return to the OR on Sunday (2) HTN (hypertension) Current Visit: No Status: Chronic Code(s): I10 - ESSENTIAL (PRIMARY) HYPERTENSION SNOMED Code(s): 73780716 Comment: stable - SBP 129-143 - Continue amlodipine and lisinopril. (3) PVD (peripheral vascular disease) Current Visit: No Status: Chronic Code(s): I73.9 - PERIPHERAL VASCULAR DISEASE, UNSPECIFIED SNOMED Code(s): 069260426 Comment: - With associated neuropathy (4) Diabetes Current Visit: Yes Status: Acute Code(s): E11.9 - TYPE 2 DIABETES MELLITUS WITHOUT COMPLICATIONS SNOMED Code(s): 95297195 Comment: - BGs 101-102, well- controlled. - Continue lantus with lispro SSI coverage for meals. - Has associated CKD, PVD, and diabetic foot ulcer. (5) DVT prophylaxis Current Visit: No Status: Acute Code(s): DBQ6976 - SNOMED Code(s): 950924191 Comment: - Heparin per ortho. (6) Full code status Current Visit: No Status: Acute Code(s): Z78.9 - OTHER SPECIFIED HEALTH STATUS SNOMED Code(s): 620271228 Comment: Status and Disposition: Inpatient. Disposition per ortho.
[2018-06-24 17:58] LABS: ABS Basophils 0.1 10^3/ul (0-0.2); ABS Eosinophils 0.4 10^3/ul (0-0.6); ABS Lymphocytes 1.2 10^3/ul (1.0-4.8); ABS Monocytes 0.9 10^3/ul (0-0.8); ABS Neutrophils 7.6 10^3/ul (1.5-7.7); ABS Nucleated RBC 0 10^3/ul; Eosinophil % 3.9 % (0-6); Hematocrit 35 % (42-52); Hemoglobin 11.5 g/dl (14.0-18.0); Lymphocyte % 11.9 % (25-47); Mean Corpuscular HGB Conc 33 g/dl (31-36); Mean Corpuscular Hemoglobin 24 pg (27-31); Mean Corpuscular Volume 73 fL (80-94); Mean Platelet Volume 6.8 um3 (7.4-10.4); Nucleated Red Blood Cells % 0.4; Platelet Count 342 10^3/ul (150-450); Red Cell Distribution Width 18 % (10.5-15); White Blood Count 10.2 10^3/ul (3.5-10.8)
[2018-06-24 18:07] LABS: INR 1.11 (0.77-1.02)
[2018-06-24 18:43] LABS: EGFR Non-African American 68.5 (>60)
[2018-06-24] MEDS: Insulin GLARGINE(*) 1 UNITS UNIT SUBCUT SCH (20:55)
[2018-06-25] MEDS: Acetaminophen TAB* 325 MG PO SCH ×3 (03:51→22:09)
[2018-06-25] MEDS: Heparin VIAL(*) 5000 UNITS/ML VIAL (FIVE THOUSAND) SUBCUT SCH ×3 (05:50→22:11)
[2018-06-25] MEDS: metroNIDAZOLE IV 500 MG/100ML* 500 MG/100 ML BAG IVPB SCH ×3 (05:51→22:13)
[2018-06-25] MEDS: Insulin LISPRO* 1 UNITS UNIT SUBCUT SCH ×4 (07:52→22:11)
[2018-06-25] MEDS: Lisinopril TAB* 10 MG PO SCH (08:25)
[2018-06-25] MEDS: Docusate CAP* 100 MG PO SCH ×2 (08:25→22:09)
[2018-06-25] MEDS: amLODIPine TAB* 5 MG PO SCH (08:25)
[2018-06-25] MEDS: Atorvastatin* 10 MG TAB PO SCH (08:25)
[2018-06-25] MEDS: FLUoxetine CAP* 20 MG PO SCH (08:25)
[2018-06-25] MEDS: Levofloxacin 750 MG IVPREMIX(* 750 MG/150 ML BAG IVPB SCH (13:36)
--- NOTE | 2018-06-25 14:54 | PN ---
Subjective Date of Service: 06/25/18 Interval History: No complaints today. Patient sitting in the chair . Denies chest pain or shortness of breath. Denies abd pain n/v/d. denies left foot pain. denies fever or chills Family History: Unchanged from Admission Social History: Unchanged from Admission Past Medical History: Unchanged from Admission Objective Active Medications: Acetaminophen (Tylenol Tab*) 975 mg PO Q8H [facility] Last Admin: 06/25/18 12:02 Dose: Not Given Amlodipine Besylate (Norvasc Tab*) 5 mg PO DAILY [facility] Last Admin: 06/25/18 08:25 Dose: 5 mg Atorvastatin Calcium (Lipitor*) 5 mg PO DAILY [facility]; Protocol Last Admin: 06/25/18 08:25 Dose: 5 mg Dextrose (D50w Syringe 50 Ml*) 12.5 gm IV PUSH .FOR FS < 60 - SS PRN PRN Reason: FS < 60 Diphenhydramine HCl (Benadryl Po*) 25 mg PO Q6H PRN PRN Reason: itching Docusate Sodium (Colace Cap*) 100 mg PO BID [facility] Last Admin: 06/25/18 08:25 Dose: Not Given Fluoxetine HCl (Prozac Cap*) 60 mg PO DAILY [facility] Last Admin: 06/25/18 08:25 Dose: 60 mg Heparin Sodium (Porcine) (Heparin Vial(*)) 5,000 units SUBCUT Q8HR [facility] Last Admin: 06/25/18 05:50 Dose: 5,000 units Levofloxacin/Dextrose (Levaquin 750 Mg Ivpremix(*)) 750 mg in 150 mls @ 100 mls /hr IVPB Q24H [facility] Last Admin: 06/25/18 13:36 Dose: 100 mls/hr Metronidazole/Sodium Chloride (Flagyl 500 Mg Ivpb*) 500 mg in 100 mls @ 100 mls /hr IVPB Q8HR [facility] Last Admin: 06/25/18 05:51 Dose: 100 mls/hr Insulin Glargine (Lantus(*)) 58 units SUBCUT Q24H [facility] Last Admin: 06/24/18 20:55 Dose: 58 units Insulin Human Lispro (Humalog*) 0 units SUBCUT ACHS [facility]; Protocol Last Admin: 06/25/18 11:40 Dose: Not Given Lisinopril (Prinivil Tab*) 10 mg PO DAILY [facility] Last Admin: 06/25/18 08:25 Dose: 10 mg Ondansetron HCl (Zofran Inj*) 4 mg IV Q6H PRN PRN Reason: nausea Trazodone HCl (Desyrel Tab*) 25 mg PO BEDTIME PRN PRN Reason: insomnia Vital Signs - 8 hr 06/25/18 06/25/18 06/25/18 07:44 07:45 11:17 Temperature 98.5 F 98.5 F Pulse Rate 61 70 Respiratory 18 Rate Blood Pressure 142/75 124/61 (mmHg) O2 Sat by Pulse 94 94 Oximetry Oxygen Devices in Use Now: None Appearance: appears comfortable resting in bed Eyes: No Scleral Icterus Ears/Nose/Mouth/Throat: Clear Oropharnyx, Mucous Membranes Moist Neck: NL Appearance and Movements; NL JVP, Trachea Midline Respiratory: Symmetrical Chest Expansion and Respiratory Effort, Clear to Auscultation Cardiovascular: NL Sounds; No Murmurs; No JVD, No Edema Abdominal: NL Sounds; No Tenderness; No Distention Extremities: No Edema, No Clubbing, Cyanosis Skin: - - dresssing intact to left foot, left lower leg with dry scaley skin noted no redness Neurological: Alert and Oriented x 3 Nutrition: Taking PO's Result Diagrams: 06/24/18 17:37 06/24/18 17:37 Microbiology and Other Data: . Assess/Plan/Problems-Billing Assessment: Mr. Maldonado is a 58 yo male with PMHX significant for non-healing foot ulcer, DM, HTN and PVD who was admitted by orthopedic surgery for debridement of his left heel ulcer. - Patient Problems (1) Non-healing ulcer of left foot Current Visit: No Status: Acute Code(s): L97.529 - NON-PRESSURE CHRONIC ULCER OTH PRT LEFT FOOT W UNSP SEVERITY SNOMED Code(s): 249706185 Comment: - POD#5 for debridement- management per orthopedic surgery - ID consult appreciated, on levaquin and flagyl - culture sensitive to levaquin - continue dressing changes as per ortho (2) HTN (hypertension) Current Visit: No Status: Chronic Code(s): I10 - ESSENTIAL (PRIMARY) HYPERTENSION SNOMED Code(s): 66633170 Comment: stable - SBP 124-142 - Continue amlodipine and lisinopril. (3) PVD (peripheral vascular disease) Current Visit: No Status: Chronic Code(s): I73.9 - PERIPHERAL VASCULAR DISEASE, UNSPECIFIED SNOMED Code(s): 107644895 Comment: - With associated neuropathy (4) Diabetes Current Visit: Yes Status: Acute Code(s): E11.9 - TYPE 2 DIABETES MELLITUS WITHOUT COMPLICATIONS SNOMED Code(s): 55797095 Comment: - BGs 97, well- controlled. - Continue lantus with lispro SSI coverage for meals. - Has associated CKD, PVD, and diabetic foot ulcer. (5) DVT prophylaxis Current Visit: No Status: Acute Code(s): PZA7640 - SNOMED Code(s): 093491556 Comment: - Heparin per ortho. (6) Full code status Current Visit: No Status: Acute Code(s): Z78.9 - OTHER SPECIFIED HEALTH STATUS SNOMED Code(s): 429847958 Comment: Status and Disposition: Inpatient. Disposition per ortho.
--- NOTE | 2018-06-25 16:17 | PN ---
Progress Note - Progress Note Date of Service: 06/25/18 SOAP: Subjective: [] Patient seen and examined at bedside. He feels well without LLE pain. He is eager to get home but agreeable to treatment plan and admission until wound appearance has improved. Objective: [] General: Well appearing, NAD LLE: Left heel wound dressing changed. Packed with betadine gauze. Wound bed with 20% slough. No purulence and no surrounding erythema Bl calves supple and nontender without erythema, edema or palpable cords Assessment: []Non healing left foot ulceration S/P debridement Plan: Cont IV zosyn, PICC line placed today NWB LLE Twice daily wet to dry betadine dressings for the next several days to be performed by nursing staff. Ortho PA will change with nursing once daily to monitor progress Vital Signs Temp 98.5 F 06/25/18 11:17 Pulse 70 06/25/18 11:17 Resp 18 06/25/18 11:17 BP 124/61 06/25/18 11:17 Pulse Ox 94 06/25/18 11:17 Intake & Output 06/24/18 06/25/18 06/25/18 18:59 06:59 18:59 Intake Total 600.7 460 930 Output Total 1325 2000 300 Balance -724.3 -1540 630 Intake: IV Fluids 40.7 NS (0.9%) 40.7 IVPB 260 100 ABX - FLAGYL 110 100 ABX - LEVOFLOXACIN 150 Oral 300 360 930 Output: Urine 1325 2000 300 Other: Estimated Void Medium # Bowel Movements 0 Laboratory Last Values WBC 10.2 10^3/ul (3.5-10.8) 06/24/18 17:37 RBC 4.80 10^6/ul (4.00-5.40) 06/24/18 17:37 Hgb 11.5 g/dl (14.0-18.0) L 06/24/18 17:37 Hct 35 % (42-52) L 06/24/18 17:37 MCV 73 fL (80-94) L 06/24/18 17:37 MCH 24 pg (27-31) L 06/24/18 17:37 MCHC 33 g/dl (31-36) 06/24/18 17:37 RDW 18 % (10.5-15) H 06/24/18 17:37 Plt Count 342 10^3/ul (150-450) 06/24/18 17:37 MPV 6.8 um3 (7.4-10.4) L 06/24/18 17:37 Neut % (Auto) 74.7 % (38-83) 06/24/18 17:37 Lymph % (Auto) 11.9 % (25-47) L 06/24/18 17:37 [place] % (Auto) 8.8 % (0-7) H 06/24/18 17:37 Eos % (Auto) 3.9 % (0-6) 06/24/18 17:37 Baso % (Auto) 0.7 % (0-2) 06/24/18 17:37 Absolute Neuts (auto) 7.6 10^3/ul (1.5-7.7) 06/24/18 17:37 Absolute Lymphs (auto) 1.2 10^3/ul (1.0-4.8) 06/24/18 17:37 Absolute Monos (auto) 0.9 10^3/ul (0-0.8) H 06/24/18 17:37 Absolute Eos (auto) 0.4 10^3/ul (0-0.6) 06/24/18 17:37 Absolute Basos (auto) 0.1 10^3/ul (0-0.2) 06/24/18 17:37 Absolute Nucleated RBC 0 10^3/ul 06/24/18 17:37 Nucleated RBC % 0.4 06/24/18 17:37 INR (Anticoag Therapy) 1.11 (0.77-1.02) H 06/24/18 17:37 APTT 35.3 seconds (26.0-36.3) 06/24/18 17:37 Sodium 135 mmol/L (135-145) 06/20/18 05:26 Potassium 4.3 mmol/L (3.5-5.0) 06/20/18 05:26 Chloride 103 mmol/L (101-111) 06/20/18 05:26 Carbon Dioxide 25 mmol/L (22-32) 06/20/18 05:26 Anion Gap 7 mmol/L (2-11) 06/20/18 05:26 BUN 21 mg/dL (6-24) 06/24/18 17:37 Creatinine 1.11 mg/dL (0.67-1.17) 06/24/18 17:37 Est GFR ( Amer) 82.9 (>60) 06/24/18 17:37 Est GFR (Non-Af Amer) 68.5 (>60) 06/24/18 17:37 BUN/Creatinine Ratio 20.0 (8-20) 06/20/18 05:26 Glucose 158 mg/dL (70-100) H 06/20/18 05:26 POC Glucose (mg/dL) 97 mg/dL (70-100) 06/25/18 07:51 Calcium 8.5 mg/dL (8.6-10.3) L 06/20/18 05:26
[2018-06-25] MEDS: Insulin GLARGINE(*) 1 UNITS UNIT SUBCUT SCH (22:10)
[2018-06-26] MEDS: Acetaminophen TAB* 325 MG PO SCH ×3 (03:29→22:31)
[2018-06-26] MEDS: Heparin VIAL(*) 5000 UNITS/ML VIAL (FIVE THOUSAND) SUBCUT SCH ×3 (05:44→22:26)
[2018-06-26] MEDS: metroNIDAZOLE IV 500 MG/100ML* 500 MG/100 ML BAG IVPB SCH ×2 (05:46→14:32)
[2018-06-26] MEDS: Insulin LISPRO* 1 UNITS UNIT SUBCUT SCH ×4 (08:04→22:25)
[2018-06-26] MEDS: FLUoxetine CAP* 20 MG PO SCH (09:52)
[2018-06-26] MEDS: Atorvastatin* 10 MG TAB PO SCH (09:52)
[2018-06-26] MEDS: Lisinopril TAB* 10 MG PO SCH (09:52)
[2018-06-26] MEDS: amLODIPine TAB* 5 MG PO SCH (09:52)
[2018-06-26] MEDS: Docusate CAP* 100 MG PO SCH ×2 (09:53→22:31)
--- NOTE | 2018-06-26 15:18 | PN ---
Progress Note - Progress Note Date of Service: 06/26/18 SOAP: Subjective: []Patient seen and examined at bedside. He feels well without fever, chills, CP. Denies LLE pain. Objective: []General: Well appearing, NAD LLE: Left heel wound dressing changed. Packed with betadine gauze. Wound bed with granulation tissue and bleeding. No purulence and no surrounding erythema. Bl calves supple and nontender without erythema, edema or palpable cords Assessment: []Non healing left foot ulceration S/P debridement Plan: Cont IV abx per ID NWB LLE Twice daily wet to dry betadine dressings. Okay for DC from ortho standpoint needs to continue wet to dry betadine dressings and FU Dr Walker next week Once ABX infusions set up can DC to home Vital Signs Temp 98.2 F 06/26/18 11:19 Pulse 70 06/26/18 11:19 Resp 18 06/26/18 11:19 BP 147/74 06/26/18 11:19 Pulse Ox 96 06/26/18 11:19 Intake & Output 06/25/18 06/26/18 06/26/18 18:59 06:59 18:59 Intake Total 930 1885 1160 Output Total 500 1425 850 Balance 430 460 310 Intake: IV Fluids 135 ABX - FLAGYL 105 NS (0.9%) 30 Oral 930 1750 1160 Output: Urine 500 1425 850 Other: # Bowel Movements 0 Laboratory Last Values WBC 10.2 10^3/ul (3.5-10.8) 06/24/18 17:37 RBC 4.80 10^6/ul (4.00-5.40) 06/24/18 17:37 Hgb 11.5 g/dl (14.0-18.0) L 06/24/18 17:37 Hct 35 % (42-52) L 06/24/18 17:37 MCV 73 fL (80-94) L 06/24/18 17:37 MCH 24 pg (27-31) L 06/24/18 17:37 MCHC 33 g/dl (31-36) 06/24/18 17:37 RDW 18 % (10.5-15) H 06/24/18 17:37 Plt Count 342 10^3/ul (150-450) 06/24/18 17:37 MPV 6.8 um3 (7.4-10.4) L 06/24/18 17:37 Neut % (Auto) 74.7 % (38-83) 06/24/18 17:37 Lymph % (Auto) 11.9 % (25-47) L 06/24/18 17:37 [place] % (Auto) 8.8 % (0-7) H 06/24/18 17:37 Eos % (Auto) 3.9 % (0-6) 06/24/18 17:37 Baso % (Auto) 0.7 % (0-2) 06/24/18 17:37 Absolute Neuts (auto) 7.6 10^3/ul (1.5-7.7) 06/24/18 17:37 Absolute Lymphs (auto) 1.2 10^3/ul (1.0-4.8) 06/24/18 17:37 Absolute Monos (auto) 0.9 10^3/ul (0-0.8) H 06/24/18 17:37 Absolute Eos (auto) 0.4 10^3/ul (0-0.6) 06/24/18 17:37 Absolute Basos (auto) 0.1 10^3/ul (0-0.2) 06/24/18 17:37 Absolute Nucleated RBC 0 10^3/ul 06/24/18 17:37 Nucleated RBC % 0.4 06/24/18 17:37 INR (Anticoag Therapy) 1.11 (0.77-1.02) H 06/24/18 17:37 APTT 35.3 seconds (26.0-36.3) 06/24/18 17:37 Sodium 135 mmol/L (135-145) 06/20/18 05:26 Potassium 4.3 mmol/L (3.5-5.0) 06/20/18 05:26 Chloride 103 mmol/L (101-111) 06/20/18 05:26 Carbon Dioxide 25 mmol/L (22-32) 06/20/18 05:26 Anion Gap 7 mmol/L (2-11) 06/20/18 05:26 BUN 21 mg/dL (6-24) 06/24/18 17:37 Creatinine 1.11 mg/dL (0.67-1.17) 06/24/18 17:37 Est GFR ( Amer) 82.9 (>60) 06/24/18 17:37 Est GFR (Non-Af Amer) 68.5 (>60) 06/24/18 17:37 BUN/Creatinine Ratio 20.0 (8-20) 06/20/18 05:26 Glucose 158 mg/dL (70-100) H 06/20/18 05:26 POC Glucose (mg/dL) 93 mg/dL (70-100) 06/26/18 12:30 Calcium 8.5 mg/dL (8.6-10.3) L 06/20/18 05:26
--- NOTE | 2018-06-26 16:23 | PN ---
Subjective Date of Service: 06/26/18 Interval History: reports that he is ready to go home. Denies chest pain or shortness of breath. Denies abd pain n/v/d. Denies pain to left foot or calf pain. Family History: Unchanged from Admission Social History: Unchanged from Admission Past Medical History: Unchanged from Admission Objective Active Medications: Acetaminophen (Tylenol Tab*) 975 mg PO Q8H [facility] Last Admin: 06/26/18 12:32 Dose: Not Given Amlodipine Besylate (Norvasc Tab*) 5 mg PO DAILY [facility] Last Admin: 06/26/18 09:52 Dose: 5 mg Atorvastatin Calcium (Lipitor*) 5 mg PO DAILY [facility]; Protocol Last Admin: 06/26/18 09:52 Dose: 5 mg Dextrose (D50w Syringe 50 Ml*) 12.5 gm IV PUSH .FOR FS < 60 - SS PRN PRN Reason: FS < 60 Diphenhydramine HCl (Benadryl Po*) 25 mg PO Q6H PRN PRN Reason: itching Docusate Sodium (Colace Cap*) 100 mg PO BID [facility] Last Admin: 06/26/18 09:53 Dose: Not Given Fluoxetine HCl (Prozac Cap*) 60 mg PO DAILY [facility] Last Admin: 06/26/18 09:52 Dose: 60 mg Heparin Sodium (Porcine) (Heparin Vial(*)) 5,000 units SUBCUT Q8HR [facility] Last Admin: 06/26/18 14:31 Dose: 5,000 units Heparin Sodium (Porcine) (Heparin Flush Picc/Ml/Cvc(*)) 1 - 3 ml FLUSH 0600, 1800 [facility]; Protocol Last Admin: 06/26/18 07:53 Dose: 1 ml Metronidazole/Sodium Chloride (Flagyl 500 Mg Ivpb*) 500 mg in 100 mls @ 100 mls /hr IVPB Q8HR [facility] Last Admin: 06/26/18 14:32 Dose: 100 mls/hr Insulin Glargine (Lantus(*)) 58 units SUBCUT Q24H [facility] Last Admin: 06/25/18 22:10 Dose: 58 units Insulin Human Lispro (Humalog*) 0 units SUBCUT ACHS [facility]; Protocol Last Admin: 06/26/18 12:32 Dose: Not Given Lisinopril (Prinivil Tab*) 10 mg PO DAILY [facility] Last Admin: 06/26/18 09:52 Dose: 10 mg Ondansetron HCl (Zofran Inj*) 4 mg IV Q6H PRN PRN Reason: nausea Trazodone HCl (Desyrel Tab*) 25 mg PO BEDTIME PRN PRN Reason: insomnia Vital Signs - 8 hr 06/26/18 06/26/18 11:19 15:48 Temperature 98.2 F 98.4 F Pulse Rate 70 80 Respiratory 18 18 Rate Blood Pressure 147/74 130/71 (mmHg) O2 Sat by Pulse 96 96 Oximetry Oxygen Devices in Use Now: None Appearance: alert , obese, sitting in bed, no acute distress Eyes: No Scleral Icterus Ears/Nose/Mouth/Throat: Clear Oropharnyx, Mucous Membranes Moist Neck: NL Appearance and Movements; NL JVP, Trachea Midline Respiratory: Symmetrical Chest Expansion and Respiratory Effort, Clear to Auscultation Cardiovascular: NL Sounds; No Murmurs; No JVD, No Edema Abdominal: NL Sounds; No Tenderness; No Distention Extremities: No Clubbing, Cyanosis, - - dressing dry and intact to left foot Skin: No Rash or Ulcers Neurological: Alert and Oriented x 3 Nutrition: Taking PO's Result Diagrams: 06/24/18 17:37 06/24/18 17:37 Microbiology and Other Data: . Assess/Plan/Problems-Billing Assessment: Mr. Maldonado is a 58 yo male with PMHX significant for non-healing foot ulcer, DM, HTN and PVD who was admitted by orthopedic surgery for debridement of his left heel ulcer. - Patient Problems (1) Non-healing ulcer of left foot Current Visit: No Status: Acute Code(s): L97.529 - NON-PRESSURE CHRONIC ULCER OTH PRT LEFT FOOT W UNSP SEVERITY SNOMED Code(s): 487273568 Comment: - POD#6 for debridement- management per orthopedic surgery - ID consult appreciated- spoke to Dr. Chamberlain today - restart zosyn and will be discharged with continuous infusion of zosyn for home. - continue dressing changes as per ortho (2) HTN (hypertension) Current Visit: No Status: Chronic Code(s): I10 - ESSENTIAL (PRIMARY) HYPERTENSION SNOMED Code(s): 16931434 Comment: stable - Continue amlodipine and lisinopril. (3) PVD (peripheral vascular disease) Current Visit: No Status: Chronic Code(s): I73.9 - PERIPHERAL VASCULAR DISEASE, UNSPECIFIED SNOMED Code(s): 250297777 Comment: - With associated neuropathy (4) Diabetes Current Visit: Yes Status: Acute Code(s): E11.9 - TYPE 2 DIABETES MELLITUS WITHOUT COMPLICATIONS SNOMED Code(s): 75931076 Comment: - BGs 93-98, well- controlled. - Continue lantus with lispro SSI coverage for meals. - Has associated CKD, PVD, and diabetic foot ulcer. (5) DVT prophylaxis Current Visit: No Status: Acute Code(s): WQH2392 - SNOMED Code(s): 263404175 Comment: - Heparin per ortho. (6) Full code status Current Visit: No Status: Acute Code(s): Z78.9 - OTHER SPECIFIED HEALTH STATUS SNOMED Code(s): 916286913 Comment: Status and Disposition: Inpatient. Disposition per ortho.
[2018-06-26] MEDS ORDERED: Zosyn per Pharmacy* NOTE FOLLOW UP SCH (17:00)
[2018-06-26] MEDS ORDERED: ZOSYN 3.375 GM x ONE DOSE over 30 miuntes IVPB ×2 (18:00)
[2018-06-26] MEDS: ZOSYN 3.375 GM Q8H per EXTENDED INFUSION IVPB SCH ×2 (22:26)
[2018-06-26] MEDS: Insulin GLARGINE(*) 1 UNITS UNIT SUBCUT SCH (22:26)
[2018-06-27] MEDS: Acetaminophen TAB* 325 MG PO SCH ×2 (04:23→13:56)
[2018-06-27] MEDS: ZOSYN 3.375 GM Q8H per EXTENDED INFUSION IVPB SCH ×2 (05:36)
[2018-06-27] MEDS: Heparin VIAL(*) 5000 UNITS/ML VIAL (FIVE THOUSAND) SUBCUT SCH ×2 (05:37→13:58)
[2018-06-27 05:54] LABS: ABS Basophils 0.1 10^3/ul (0-0.2); ABS Eosinophils 0.5 10^3/ul (0-0.6); ABS Lymphocytes 0.8 10^3/ul (1.0-4.8); ABS Monocytes 0.9 10^3/ul (0-0.8); ABS Nucleated RBC 0 10^3/ul; Hematocrit 35 % (42-52); Hemoglobin 11.5 g/dl (14.0-18.0); Lymphocyte % 7.6 % (25-47); Mean Corpuscular HGB Conc 33 g/dl (31-36); Mean Corpuscular Hemoglobin 24 pg (27-31); Mean Corpuscular Volume 73 fL (80-94); Mean Platelet Volume 6.7 um3 (7.4-10.4); Nucleated Red Blood Cells % 0; Platelet Count 326 10^3/ul (150-450); Red Blood Count 4.72 10^6/ul (4.00-5.40); Red Cell Distribution Width 19 % (10.5-15); White Blood Count 10.2 10^3/ul (3.5-10.8)
[2018-06-27] MEDS: Insulin LISPRO* 1 UNITS UNIT SUBCUT SCH ×2 (07:47→13:59)
[2018-06-27 08:37] VITALS: BP 144/76
[2018-06-27] MEDS: Atorvastatin* 10 MG TAB PO SCH (08:53)
[2018-06-27] MEDS: FLUoxetine CAP* 20 MG PO SCH (08:53)
[2018-06-27] MEDS: amLODIPine TAB* 5 MG PO SCH (08:53)
[2018-06-27] MEDS: Docusate CAP* 100 MG PO SCH (08:53)
[2018-06-27] MEDS: Lisinopril TAB* 10 MG PO SCH (08:53)
--- NOTE | 2018-06-27 12:04 | PN ---
Progress Note - Progress Note Date of Service: 06/27/18 SOAP: Subjective: []Patient seen and examined at bedside. He feels well without fever, chills, CP , SOB or LLE pain. He is in good spirits today. Objective: []General: Well appearing, NAD LLE: Left heel wound dressing changed. Packed with betadine gauze. Clean wound bed without purulence and no surrounding erythema. Bl calves supple and nontender without erythema, edema or palpable cords Assessment: []Non healing left foot ulceration S/P debridement Plan: Cont IV abx per ID - will DC home on zosyn NWB LLE home nursing to perform daily wet to dry betadine dressings. FU Dr Walker next week Vital Signs Temp 98.0 F 06/27/18 07:23 Pulse 73 06/27/18 07:23 Resp 20 06/27/18 09:00 BP 144/76 06/27/18 07:23 Pulse Ox 95 06/27/18 07:23 Intake & Output 06/26/18 06/27/18 06/27/18 18:59 06:59 18:59 Intake Total 1320 593 350 Output Total 1650 660 275 Balance -330 -67 75 Intake: IV Fluids 160 ABX - FLAGYL 110 NS (0.9%) 50 IVPB 113 110 ABX - ZOSYN 113 110 Oral 1160 480 240 Output: Urine 1650 660 275 Other: Estimated Void Medium # Bowel Movements 0 # Voids 1 Laboratory Last Values WBC 10.2 10^3/ul (3.5-10.8) 06/27/18 05:37 RBC 4.72 10^6/ul (4.00-5.40) 06/27/18 05:37 Hgb 11.5 g/dl (14.0-18.0) L 06/27/18 05:37 Hct 35 % (42-52) L 06/27/18 05:37 MCV 73 fL (80-94) L 06/27/18 05:37 MCH 24 pg (27-31) L 06/27/18 05:37 MCHC 33 g/dl (31-36) 06/27/18 05:37 RDW 19 % (10.5-15) H 06/27/18 05:37 Plt Count 326 10^3/ul (150-450) 06/27/18 05:37 MPV 6.7 um3 (7.4-10.4) L 06/27/18 05:37 Neut % (Auto) 78.0 % (38-83) 06/27/18 05:37 Lymph % (Auto) 7.6 % (25-47) L 06/27/18 05:37 Frontier % (Auto) 8.8 % (0-7) H 06/27/18 05:37 Eos % (Auto) 5.0 % (0-6) 06/27/18 05:37 Baso % (Auto) 0.6 % (0-2) 06/27/18 05:37 Absolute Neuts (auto) 8.0 10^3/ul (1.5-7.7) H 06/27/18 05:37 Absolute Lymphs (auto) 0.8 10^3/ul (1.0-4.8) L 06/27/18 05:37 Absolute Monos (auto) 0.9 10^3/ul (0-0.8) H 06/27/18 05:37 Absolute Eos (auto) 0.5 10^3/ul (0-0.6) 06/27/18 05:37 Absolute Basos (auto) 0.1 10^3/ul (0-0.2) 06/27/18 05:37 Absolute Nucleated RBC 0 10^3/ul 06/27/18 05:37 Nucleated RBC % 0 06/27/18 05:37 INR (Anticoag Therapy) 1.11 (0.77-1.02) H 06/24/18 17:37 APTT 35.3 seconds (26.0-36.3) 06/24/18 17:37 Sodium 135 mmol/L (135-145) 06/20/18 05:26 Potassium 4.3 mmol/L (3.5-5.0) 06/20/18 05:26 Chloride 103 mmol/L (101-111) 06/20/18 05:26 Carbon Dioxide 25 mmol/L (22-32) 06/20/18 05:26 Anion Gap 7 mmol/L (2-11) 06/20/18 05:26 BUN 21 mg/dL (6-24) 06/24/18 17:37 Creatinine 1.11 mg/dL (0.67-1.17) 06/24/18 17:37 Est GFR ( Amer) 82.9 (>60) 06/24/18 17:37 Est GFR (Non-Af Amer) 68.5 (>60) 06/24/18 17:37 BUN/Creatinine Ratio 20.0 (8-20) 06/20/18 05:26 Glucose 158 mg/dL (70-100) H 06/20/18 05:26 POC Glucose (mg/dL) 119 mg/dL (70-100) H 06/27/18 07:45 Calcium 8.5 mg/dL (8.6-10.3) L 06/20/18 05:26
--- NOTE | 2018-06-27 14:50 | PN ---
Subjective Date of Service: 06/27/18 Interval History: Patient up sitting in the chair, glad to be going home today, no complaints of chest pain or shortness of breath. Denies abd pain ,n/v/d. Family History: Unchanged from Admission Social History: Unchanged from Admission Past Medical History: Unchanged from Admission Objective Active Medications: Acetaminophen (Tylenol Tab*) 975 mg PO Q8H [facility] Last Admin: 06/27/18 13:56 Dose: 975 mg Amlodipine Besylate (Norvasc Tab*) 5 mg PO DAILY [facility] Last Admin: 06/27/18 08:53 Dose: 5 mg Atorvastatin Calcium (Lipitor*) 5 mg PO DAILY [facility]; Protocol Last Admin: 06/27/18 08:53 Dose: 5 mg Dextrose (D50w Syringe 50 Ml*) 12.5 gm IV PUSH .FOR FS < 60 - SS PRN PRN Reason: FS < 60 Diphenhydramine HCl (Benadryl Po*) 25 mg PO Q6H PRN PRN Reason: itching Docusate Sodium (Colace Cap*) 100 mg PO BID [facility] Last Admin: 06/27/18 08:53 Dose: Not Given Fluoxetine HCl (Prozac Cap*) 60 mg PO DAILY [facility] Last Admin: 06/27/18 08:53 Dose: 60 mg Heparin Sodium (Porcine) (Heparin Vial(*)) 5,000 units SUBCUT Q8HR [facility] Last Admin: 06/27/18 13:58 Dose: 5,000 units Heparin Sodium (Porcine) (Heparin Flush Picc/Ml/Cvc(*)) 1 - 3 ml FLUSH 0600, 1800 [facility]; Protocol Last Admin: 06/27/18 14:01 Dose: 1 ml Piperacillin Sod/Tazobactam (Sod 3.375 gm/ Sodium Chloride) 100 mls @ 25 mls/ hr IVPB Q8H [facility] Last Admin: 06/27/18 05:36 Dose: 25 mls/hr Insulin Glargine (Lantus(*)) 58 units SUBCUT Q24H [facility] Last Admin: 06/26/18 22:26 Dose: 58 units Insulin Human Lispro (Humalog*) 0 units SUBCUT ACHS [facility]; Protocol Last Admin: 06/27/18 13:59 Dose: 2 unit Lisinopril (Prinivil Tab*) 10 mg PO DAILY [facility] Last Admin: 06/27/18 08:53 Dose: 10 mg Ondansetron HCl (Zofran Inj*) 4 mg IV Q6H PRN PRN Reason: nausea Pharmacy Consult (Zosyn Per Pharmacy*) 1 note FOLLOW UP .ZOSYN PER PHARMACY [facility] Trazodone HCl (Desyrel Tab*) 25 mg PO BEDTIME PRN PRN Reason: insomnia Vital Signs - 8 hr 06/27/18 06/27/18 07:23 09:00 Temperature 98.0 F Pulse Rate 73 Respiratory 20 20 Rate Blood Pressure 144/76 (mmHg) O2 Sat by Pulse 95 Oximetry Oxygen Devices in Use Now: None Appearance: alert, appears comfortable sittting in the chair Eyes: No Scleral Icterus Ears/Nose/Mouth/Throat: Clear Oropharnyx, Mucous Membranes Moist Neck: NL Appearance and Movements; NL JVP, Trachea Midline Respiratory: Symmetrical Chest Expansion and Respiratory Effort, Clear to Auscultation Cardiovascular: NL Sounds; No Murmurs; No JVD, No Edema Abdominal: NL Sounds; No Tenderness; No Distention Extremities: - - dressing intact left foot Skin: - - dressing intact to left foot Neurological: Alert and Oriented x 3 Nutrition: Taking PO's Result Diagrams: 06/27/18 05:37 06/24/18 17:37 Microbiology and Other Data: . Assess/Plan/Problems-Billing Assessment: Mr. Maldonado is a 58 yo male with PMHX significant for non-healing foot ulcer, DM, HTN and PVD who was admitted by orthopedic surgery for debridement of his left heel ulcer. - Patient Problems (1) Non-healing ulcer of left foot Current Visit: No Status: Acute Code(s): L97.529 - NON-PRESSURE CHRONIC ULCER OTH PRT LEFT FOOT W UNSP SEVERITY SNOMED Code(s): 509825074 Comment: - POD#7 for debridement- management per orthopedic surgery - ID consult appreciated- spoke to Dr. Chamberlain today - restart zosyn and will be discharged with continuous infusion of zosyn for home. - continue dressing changes as per ortho (2) HTN (hypertension) Current Visit: No Status: Chronic Code(s): I10 - ESSENTIAL (PRIMARY) HYPERTENSION SNOMED Code(s): 99957106 Comment: stable - Continue amlodipine and lisinopril. (3) PVD (peripheral vascular disease) Current Visit: No Status: Chronic Code(s): I73.9 - PERIPHERAL VASCULAR DISEASE, UNSPECIFIED SNOMED Code(s): 082480460 Comment: - With associated neuropathy (4) Diabetes Current Visit: Yes Status: Acute Code(s): E11.9 - TYPE 2 DIABETES MELLITUS WITHOUT COMPLICATIONS SNOMED Code(s): 11933782 Comment: - BGs 93-98, well- controlled. - Continue lantus with lispro SSI coverage for meals. - Has associated CKD, PVD, and diabetic foot ulcer. (5) DVT prophylaxis Current Visit: No Status: Acute Code(s): VAS3571 - SNOMED Code(s): 387602208 Comment: - Heparin per ortho. (6) Full code status Current Visit: No Status: Acute Code(s): Z78.9 - OTHER SPECIFIED HEALTH STATUS SNOMED Code(s): 639247702 Comment: Status and Disposition: Inpatient. Disposition per ortho.
== END 2018-06-27 14:50 | disposition home health service (06) | DRG 314 ==
LOC: OR 10:50 → SSU 11:25
PROVIDERS: ADMIT Orthopaedic Surgery; ATTEND Orthopaedic Surgery
PROC: 0QBM0ZZ Excision of Left Tarsal, Open Approach (ICD-10-PCS; principal; 2018-06-20 13:30)
PROC: 02HV33Z Insertion of Infusion Device into Superior Vena Cava, Percutaneous Approach (ICD-10-PCS; 2018-06-24)
DX: E11.621 Type 2 diabetes mellitus with foot ulcer (principal); L97.429 Non-pressure chronic ulcer of left heel and midfoot with unspecified severity; F84.5 Asperger's syndrome; M86.8X7 Other osteomyelitis, ankle and foot; F84.0 Autistic disorder; F33.1 Major depressive disorder, recurrent, moderate; Z68.41 Body mass index [BMI] 40.0-44.9, adult; E11.69 Type 2 diabetes mellitus with other specified complication; E11.42 Type 2 diabetes mellitus with diabetic polyneuropathy; E11.51 Type 2 diabetes mellitus with diabetic peripheral angiopathy without gangrene; I73.9 Peripheral vascular disease, unspecified; E66.01 Morbid (severe) obesity due to excess calories; E78.5 Hyperlipidemia, unspecified; F43.10 Post-traumatic stress disorder, unspecified; E11.22 Type 2 diabetes mellitus with diabetic chronic kidney disease; I12.9 Hypertensive chronic kidney disease with stage 1 through stage 4 chronic kidney disease, or unspecified chronic kidney disease; N18.2 Chronic kidney disease, stage 2 (mild); Z89.432 Acquired absence of left foot; Z89.431 Acquired absence of right foot; Z88.1 Allergy status to other antibiotic agents
CPT/HCPCS: 36415; 80048; 82565; 84520; 85025; 85610; 85730; 87070; 87073; 87076; 87077; 87185; 87186; 87205; 87640; 87641; 88304; 88311; 90686; A9270-GY; C1751; J1644; J2250; J2543; J2704; J3490

== ENCOUNTER 2018-11-04 06:14 | Inpatient (IN) | payer OTHER ==
--- NOTE | 2018-11-04 03:38 | HP ---
HISTORY AND PHYSICAL: DATE OF ADMISSION: 11/04/18 HISTORY OF PRESENT ILLNESS: Main is a a 58-year-old male with peripheral neuropathy, diabetes, who has had chronic problems with his left hindfoot. He had a Chopart type disarticulation previously, which was complicated by heel ulcer. This was treated back in June with debridement and a VAC dressing that has gone on to heal, but now Main has a plantar ulcer, which he thinks developed while trying to wear his brace. This has been treated with multiple debridement, packing, and casting but it is getting bigger not smaller. At this point, Main will be admitted for a debridement of the wound, possible partial ostectomy and possible VAC dressing. He understands he will be in the hospital. Main has a history of Asperger's, diabetes, hypertension, peripheral vascular disease, and morbid obesity. CURRENT MEDICATIONS: Include: 1. Tylenol 650 mg every 6 hours as needed. 2. Amlodipine 5 mg a day. 3. Prozac 40 mg a day. 4. Lantus 58 units every 24 hours. 5. Humalog 15 units 3 times a day. 6. Lisinopril 10 mg a day. 7. Pravastatin 40 mg a day. ALLERGIES: He has an allergy to CEFEPIME. FAMILY HISTORY: Noncontributory. SOCIAL HISTORY: The patient lives alone, but he does have a close friend Millie who accompanies him and can help with some basic health care needs. REVIEW OF SYSTEMS: A 14-point review of systems was discussed with the patient. He denies significant headache but does feel that he has had some recent fevers or chills. He has a sense of some lethargy. He is not having difficulty breathing. No chest pain. No nausea, vomiting, diarrhea. No significant dizziness or lightheadedness. He does have a history of depression and anxiety. PHYSICAL EXAMINATION GENERAL: Main is in no acute distress, although he seems somewhat depressed and somewhat flat affect. His general hygiene is fair. VITAL SIGNS: Show him to be 6 feet tall, 320 pounds. Blood pressure today 168/ 102. NECK: He has supple neck to range of motion. CHEST: Clear. I do not hear any wheezing or rales. CARDIAC: Prominent. No extra sounds noted, although his heart rate is about 100. ABDOMEN: Large, soft, doughy, nontender. EXTREMITIES: Examination of the left lower extremity shows him to have chronic edema of the calf. He has warmth of the distal extremity. He is densely neuropathic. Posterior heel wound is healed nicely, but the plantar ulcer is about quarter size in diameter and 2 to 3 cm deep. Copious amount of serous drainage is noted. GENITOURINARY: Deferred. NEUROLOGICAL: Deferred. DIAGNOSTIC STUDIES/LAB DATA: MRI has revealed some changes of edema at the plantar aspect of his hindfoot. IMPRESSION: Main Maldonado with chronic ulceration of the left hindfoot, underlying diabetes, neuropathy, and obesity. Plan at this point will be a debridement of the ulcer, possible packing versus VAC dressing. [id number]/[facility] #: [id number] [facility] HOSPITALAlfredo
[~2018-11-04 06:14] MED LIST: Buffered Lidocaine 1% SYRIN* 1 ML/SYRINGE INTRADERM ONE; Lactated Ringers 1000 ML Bag* 1,000 ML IV SCH
[2018-11-04] MEDS ORDERED: Vancomycin(*) 2,000 MG in NS 0.9% 500 ML* 500 ML IVPB ONE (08:00)
[2018-11-04] MEDS ORDERED: Midazolam* 1 MG/ML 5 ML VIAL (5 MG) ONE ×2 (08:32→09:01)
[2018-11-04] MEDS ORDERED: fentaNYL* 50 MCG/ML 2 ML VIAL (100 MCG VIAL) ONE ×2 (08:55→09:15)
[2018-11-04] MEDS ORDERED: ROPIVACAINE 5 MG/ML 30 ML BTL (0.5%) ONE (09:16)
[2018-11-04] MEDS ORDERED: oxyCODONE TAB* 5 MG TAB PO PRN (09:46)
[2018-11-04] MEDS ORDERED: HYDROmorphone INJ1* 1 MG/ML SYRINGE IV PRN (09:46)
[2018-11-04] MEDS ORDERED: Naloxone* 0.4 MG/ML 1 ML VIAL IV PRN (09:46)
[2018-11-04] MEDS ORDERED: fentaNYL* 50 MCG/ML 2 ML VIAL (100 MCG VIAL) IV PRN (09:46)
[2018-11-04] MEDS ORDERED: Ondansetron INJ* 2 MG/ML VIAL IV PRN ×2 (09:46→09:55)
[2018-11-04] MEDS ORDERED: Magnesium Hydroxide LIQ* 30 ML UDC PO PRN (09:55)
[2018-11-04] MEDS ORDERED: traZODone TAB* 50 MG TAB PO PRN (09:55)
[2018-11-04] MEDS ORDERED: Morphine VIAL* 4 MG/ML VIAL (1 ml vial) IV PRN (09:55)
[2018-11-04] MEDS ORDERED: Lactated Ringers 1000 ML Bag* 1,000 ML IV SCH (10:00)
[2018-11-04] MEDS ORDERED: Acetaminophen TAB* 325 MG PO SCH (10:00)
[2018-11-04] MEDS ORDERED: Al Hydrox/Mg Hydrox/Simet LIQ* 30 ML UDC PO PRN (10:04)
[2018-11-04] MEDS ORDERED: Acetaminophen TAB* 325 MG ONE (11:10)
[2018-11-04] MEDS: Atorvastatin* 10 MG TAB PO SCH (16:43)
[2018-11-04] MEDS: Vancomycin(*) 1,250 MG in NS 0.9% 250 ML* 250 ML IVPB SCH (16:43)
[2018-11-04] MEDS: Enoxaparin(*) 40 MG/0.4 ML SYR SUBCUT SCH (16:44)
--- NOTE | 2018-11-04 19:53 | OP ---
DATE OF OPERATION: 11/04/18 - ROOM #353 DATE OF : 64 SURGEON: Rizwan Walker MD HOUSEKEEPING WORKER: Tanvi Petersen PA-C PRE-OP DIAGNOSIS: Deep infected abscess and early osteomyelitis, left mid foot. POST-OP DIAGNOSIS: Deep infected abscess and early osteomyelitis, left mid foot. OPERATIVE PROCEDURE: Debridement, ostectomy, and packing, left mid foot ulcer. DESCRIPTION OF PROCEDURE: The patient was taken to the operating room where a thigh tourniquet was inflated. 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 We reflected the plantar flap and exposed the undersurface of the mid foot bones. Extensive soft tissue debridement was performed with a #10 blade. There was a bursa with some infected material. Cultures were sent. We also used a rongeur to clean out small shards of loose bone and remove the undersurface of the hindfoot bones or mid talar bones with an osteotome. The wound was sterilely irrigated with 3 L pulsatile lavage. Tourniquet was dropped and actually the patient had excellent blood supply in both dorsal and plantar flaps. The quarter-sized ulcer in the center of the flap was ellipticized as well. We then closed dorsal to plantar flap with some heavy PDS sutures and interrupted Prolene for the skin and we packed the plantar ulcer. Multiple cultures and pathology were sent intraoperatively. [id number]/[facility] #: [id number] MTDD
[2018-11-04] MEDS: Acetaminophen TAB* 325 MG PO SCH (20:05)
[2018-11-04] MEDS: Gabapentin CAP(*) 400 MG PO SCH (20:05)
[2018-11-04] MEDS: Magnesium Hydroxide LIQ* 30 ML UDC PO SCH (20:08)
[2018-11-04] MEDS: Docusate CAP* 100 MG PO SCH (20:08)
[2018-11-05] MEDS: Vancomycin(*) 1,250 MG in NS 0.9% 250 ML* 250 ML IVPB SCH ×3 (00:18→16:26)
[2018-11-05] MEDS: Acetaminophen TAB* 325 MG PO SCH ×3 (04:07→21:00)
[2018-11-05 05:36] LABS: ABS Basophils 0.1 10^3/ul (0-0.2); ABS Eosinophils 0.2 10^3/ul (0-0.6); ABS Lymphocytes 1.2 10^3/ul (1.0-4.8); ABS Monocytes 1.1 10^3/ul (0-0.8); ABS Neutrophils 8.1 10^3/ul (1.5-7.7); ABS Nucleated RBC 0 10^3/ul; Eosinophil % 2.2 %; Hematocrit 29 % (42-52); Lymphocyte % 10.8 %; Mean Corpuscular HGB Conc 31 g/dl (31-36); Mean Corpuscular Hemoglobin 22 pg (27-31); Mean Corpuscular Volume 71 fL (80-94); Mean Platelet Volume 6.9 fL (7.4-10.4); Nucleated Red Blood Cells % 0; Platelet Count 330 10^3/ul (150-450); Red Blood Count 4.02 10^6/ul (4.00-5.40); Red Cell Distribution Width 20 % (10.5-15); White Blood Count 10.7 10^3/ul (3.5-10.8)
[2018-11-05 05:43] LABS: BUN/Creatinine Ratio 17.8 (8-20); Calcium 8.5 mg/dL (8.6-10.3); EGFR African American 77.3 (>60); EGFR Non-African American 63.9 (>60); Potassium 3.9 mmol/L (3.5-5.0)
[2018-11-05] MEDS ORDERED: IRON VITAMIN C PO SCH (09:00)
--- NOTE | 2018-11-05 09:03 | CONS ---
[facility] MEDICINE CONSULTATION REPORT: DATE OF CONSULT: 11/04/18 PROVIDER: Di Sandy NP. ATTENDING PHYSICIAN: Dr. Walker. CONSULTING PHYSICIAN: Dr. Hallie King (dictated by Di Sandy NP). REASON FOR CONSULT: Co-management of chronic medical conditions. HISTORY OF PRESENT ILLNESS: Mr. Maldonado is a 58-year-old male with a history of peripheral neuropathy, diabetes, hypertension, peripheral vascular disease, morbid obesity, and Asperger's who [place] [facility] [place] debridement of a plantar ulcer on the left foot as outpatient. The patient failed multiple debridements and packing as an outpatient and the wound continued to become larger, so the patient was admitted for debridement of the wound. PAST MEDICAL HISTORY: Significant for: 1. Asperger's. 2. Diabetes. 3. Hypertension. 4. Peripheral vascular disease. 5. Morbid obesity. 6. History of interstitial nephritis with end-stage renal disease requiring dialysis secondary to cefepime. 7. Hyperlipidemia. 8. History of osteomyelitis. PAST SURGICAL HISTORY: Multiple debridements of the left and multiple surgeries on the right foot. HOME MEDICATIONS: 1. Lispro 10 units subcu t.i.d. 2. Amlodipine 5 mg p.o. daily. 3. Lisinopril 10 mg p.o. daily. 4. Iron with vitamin C 1 tab p.o. daily. 5. Bactrim 1 tab p.o. b.i.d. 6. Gabapentin 1200 mg p.o. b.i.d. 7. Fluoxetine 40 mg p.o. q.a.m. 8. Maalox 30 mL q.6 hours as needed. 9. Tylenol 650 mg p.o. q.6 hours as needed. 10. Melatonin 10 mg p.o. at bedtime. 11. Lantus 58 units subcu p.m. 12. Pravachol 40 mg p.o. q.p.m. ALLERGIES: CEFEPIME. FAMILY HISTORY: Unknown. Patient was adopted. SOCIAL HISTORY: Patient lives alone. He denies any alcohol, smoking, or illicit drug use. Surrogate decision maker in the event he is unable to make his own decisions is his friend, Millie. He is a full code. REVIEW OF SYSTEMS: Fourteen-point review of systems was completed. All those pertinent positives are mentioned in the HPI. PHYSICAL EXAM: General: At this time, Mr. Maldonado is resting in his bed. He appears comfortable. He is not in any acute distress. He is alert and oriented x3. Vital Signs: Temperature 96.9, heart rate 85, respirations 16, O2 saturation 98%, blood pressure 127/70. Neurologic: He is awake, alert, oriented x3. He is able to move all 4 extremities. He has no gross focal deficits. HEENT: Head is atraumatic, normocephalic. Eyes: EOMs are intact. Sclerae are anicteric and not pale. Oral mucosa appeared to be moist. Neck is supple. He does have some erythema noted to the neck folds. Lungs are clear to auscultation bilaterally. No wheezes, rales, or rhonchi. Cardiac: S1, S2. Regular rate and rhythm. No murmurs, rubs, or gallops. Abdomen is obese, soft, and nontender. Bowel sounds are present x4. Extremities: He has a dressing intact to his left lower extremity. There is a small amount of bloody drainage noted to the dressing. LABORATORY DATA: Preoperatively on 11/01/18, WBCs were 15.4, RBCs 5.07, hemoglobin was 11.4, hematocrit was 36, platelet count was 474. INR was 1.14. Sodium 131, potassium 4.9, chloride 97, carbon dioxide was 27, anion gap was 7, BUN was 23, creatinine was 1.25, calcium was 9.0. IMPRESSION AND PLAN: Mr. Maldonado is a 58-year-old male with past medical history significant for insulin-dependent type 2 diabetes, hypertension, peripheral vascular disease, and Asperger's who presented [place] [facility] [place] a debridement of his left foot wound with Dr. Walker. We were asked to consult due to the patient's chronic medical conditions. Our recommendations are as follows: 1. Status post debridement of left foot. Management per orthopedics. PT/OT per orthopedics. Patient is nonweightbearing to the left foot. Bowel regimen per orthopedics. IV antibiotics. Dr. Hernandes from infectious disease has also been consulted. Wound culture is currently pending. 2. Hypertension. I would continue on amlodipine 5 mg p.o. daily and lisinopril 10 mg p.o. daily. 3. Hyperlipidemia. He should continue on pravastatin 40 mg p.o. daily. 4. Diabetes. He should continue on Humalog 15 units t.i.d. and Lantus 58 units q.24 hours. He should have fingersticks a.c. and h.s. He will be placed on a consistent carb diet. 5. DVT prophylaxis, per orthopedics. 6. Code status. He is a full code. TIME SPENT: Time spent on this consultation was 45 minutes, greater than half that time was spent at the bedside reviewing the events leading thus far to his hospitalization, performing my physical exam, and reviewing my plan of care. We will take this patient onto medical service for further management of his condition. I have discussed this with my attending, Dr. Hallie King; she is in agreement with my plan. DI SANDY, COMPLIANCE AUDITOR [id number]/[facility] #: [id number] MTDAlfredo
[2018-11-05] MEDS: Docusate CAP* 100 MG PO SCH ×2 (09:59→21:01)
[2018-11-05] MEDS: Magnesium Hydroxide LIQ* 30 ML UDC PO SCH ×2 (09:59→21:01)
[2018-11-05] MEDS: Lisinopril TAB* 10 MG PO SCH (10:38)
[2018-11-05] MEDS: FLUoxetine CAP* 20 MG PO SCH (10:39)
[2018-11-05] MEDS: Gabapentin CAP(*) 400 MG PO SCH ×2 (10:39→20:59)
[2018-11-05] MEDS: amLODIPine TAB* 5 MG PO SCH (10:40)
--- NOTE | 2018-11-05 12:19 | PN ---
Progress Note - Progress Note Date of Service: 11/05/18 SOAP: Subjective: []Pt seen at bedside. He feels well without fever, chills, chest pain, shortness of breath, dizziness or nausea. Objective: []General: NAD, very pleasant LLE: left foot dressing taken down, dressing soaked through with blood on the plantar surface. Distal incision with well approximated wound edges and no erythema or discharge. Packing pulled from deep plantar ulcer, no gross purulence. Repacked with betadyne soaked gauze, dry dressing then replaced. Patients foot is insensate, he tolerates bedside packing/dressing changes well. Calf supple and nontender. Assessment: [] Deep infected abscess and early osteomyelitis POD 1 sp left mid foot Debridement, ostectomy, and packing, left mid foot ulcer. Dr Walker 11/04/18 Plan: []NWB LLE PT/OT Rehab placement needed Daily wet to dry betadine packing change to plantar ulcer Continue IV abx currently on vanco, follow cultures, ID and hospitalist consults in place Lovenox for dvt prophylxis Vital Signs Temp 97.7 F 11/05/18 11:36 Pulse 85 11/05/18 11:36 Resp 16 11/05/18 11:36 BP 144/64 11/05/18 11:36 Pulse Ox 99 11/05/18 11:36 Intake & Output 11/04/18 11/05/18 11/05/18 18:59 06:59 18:59 Intake Total 1450 1140 1654 Output Total 345 300 100 Balance 7684 589 1687 Weight 341 lb 3.2 oz Intake: IV Fluids 1350 280 956 ABX - VANCOMYCIN 280 LR 1100 956 VANCOMYCIN 2GM 250 IVPB 298 ABX - VANCOMYCIN 298 Oral 100 860 400 Output: Urine 345 300 100 Laboratory Last Values WBC 10.7 10^3/ul (3.5-10.8) 11/05/18 04:56 RBC 4.02 10^6/ul (4.00-5.40) 11/05/18 04:56 Hgb 9.0 g/dl (14.0-18.0) L 11/05/18 04:56 Hct 29 % (42-52) L 11/05/18 04:56 MCV 71 fL (80-94) L 11/05/18 04:56 MCH 22 pg (27-31) L 11/05/18 04:56 MCHC 31 g/dl (31-36) 11/05/18 04:56 RDW 20 % (10.5-15) H 11/05/18 04:56 Plt Count 330 10^3/ul (150-450) 11/05/18 04:56 MPV 6.9 fL (7.4-10.4) L 11/05/18 04:56 Neut % (Auto) 75.8 % 11/05/18 04:56 Lymph % (Auto) 10.8 % 11/05/18 04:56 [place] % (Auto) 10.6 % 11/05/18 04:56 Eos % (Auto) 2.2 % 11/05/18 04:56 Baso % (Auto) 0.6 % 11/05/18 04:56 Absolute Neuts (auto) 8.1 10^3/ul (1.5-7.7) H 11/05/18 04:56 Absolute Lymphs (auto) 1.2 10^3/ul (1.0-4.8) 11/05/18 04:56 Absolute Monos (auto) 1.1 10^3/ul (0-0.8) H 11/05/18 04:56 Absolute Eos (auto) 0.2 10^3/ul (0-0.6) 11/05/18 04:56 Absolute Basos (auto) 0.1 10^3/ul (0-0.2) 11/05/18 04:56 Absolute Nucleated RBC 0 10^3/ul 11/05/18 04:56 Nucleated RBC % 0 11/05/18 04:56 Sodium 127 mmol/L (135-145) L 11/05/18 04:56 Potassium 3.9 mmol/L (3.5-5.0) 11/05/18 04:56 Chloride 97 mmol/L (101-111) L 11/05/18 04:56 Carbon Dioxide 25 mmol/L (22-32) 11/05/18 04:56 Anion Gap 5 mmol/L (2-11) 11/05/18 04:56 BUN 21 mg/dL (6-24) 11/05/18 04:56 Creatinine 1.18 mg/dL (0.67-1.17) H 11/05/18 04:56 Est GFR ( Amer) 77.3 (>60) 11/05/18 04:56 Est GFR (Non-Af Amer) 63.9 (>60) 11/05/18 04:56 BUN/Creatinine Ratio 17.8 (8-20) 11/05/18 04:56 Glucose 240 mg/dL (70-100) H 11/05/18 04:56 POC Glucose (mg/dL) 239 mg/dL (70-100) H 11/04/18 12:06 Calcium 8.5 mg/dL (8.6-10.3) L 11/05/18 04:56
[2018-11-05] MEDS: Insulin LISPRO* 1 UNITS UNIT SUBCUT SCH ×2 (14:23→22:51)
[2018-11-05] MEDS: Enoxaparin(*) 40 MG/0.4 ML SYR SUBCUT SCH (16:27)
[2018-11-05] MEDS ORDERED: Insulin GLARGINE(*) 1 UNITS UNIT SUBCUT SCH (18:00)
[2018-11-05] MEDS: Atorvastatin* 10 MG TAB PO SCH (18:11)
--- NOTE | 2018-11-05 18:14 | PN ---
Subjective Date of Service: 11/05/18 Interval History: Pt is doing well and in good spirits; he is POD1 debridement of L foot ulcer. He states that he has very little pain in the feet, d/t diabetic neuropathy. He has been eating and drinking well. He is NWB L foot, and has been pivoting to transfer from bed to chair. He uses a urinal and his last BM was Sunday. He denies CP, SOB, fever, cough, abd pain, n/v/d/c, calf pain or tenderness. Objective Active Medications: Acetaminophen (Tylenol Tab*) 975 mg PO 0400,1200,2000 [facility] Last Admin: 11/05/18 11:52 Dose: 975 mg Al Hydrox/Mg Hydrox/Simethicone (Maalox Plus*) 30 ml PO Q6H PRN PRN Reason: INDIGESTION Amlodipine Besylate (Norvasc Tab*) 5 mg PO QAM [facility] Last Admin: 11/05/18 10:40 Dose: 5 mg Atorvastatin Calcium (Lipitor*) 5 mg PO QPM [facility]; Protocol Last Admin: 11/04/18 16:43 Dose: 5 mg Docusate Sodium (Colace Cap*) 100 mg PO BID [facility] Last Admin: 11/05/18 09:59 Dose: Not Given Enoxaparin Sodium (Lovenox(*)) 40 mg SUBCUT Q24H [facility] Last Admin: 11/05/18 16:27 Dose: 40 mg Fluoxetine HCl (Prozac Cap*) 40 mg PO QAM [facility] Last Admin: 11/05/18 10:39 Dose: 40 mg Gabapentin (Neurontin Cap(*)) 1,200 mg PO BID [facility] Last Admin: 11/05/18 10:39 Dose: 1,200 mg Lactated Ringer's (Lactated Ringers 1000 Ml Bag*) 1,000 mls @ 75 mls/hr IV PER RATE [facility] Last Admin: 11/05/18 07:46 Dose: 75 mls/hr Vancomycin HCl 1,250 mg/ (Sodium Chloride) 250 mls @ 166.667 mls/hr IVPB Q8H [facility]; Protocol Last Admin: 11/05/18 16:26 Dose: 166.667 mls/hr Insulin Glargine (Lantus(*)) 58 units SUBCUT QPM [facility] Insulin Human Lispro (Humalog*) 10 units SUBCUT TID [facility] Last Admin: 11/05/18 14:23 Dose: 10 unit Iron/Vitamin C (Vitron-C (Nf)) [facility] [place] Lisinopril (Prinivil Tab*) 10 mg PO QAM [facility] Last Admin: 11/05/18 10:38 Dose: 10 mg Magnesium Hydroxide (Milk Of Magnesia Liq*) 30 ml PO BID [facility] Last Admin: 11/05/18 09:59 Dose: Not Given Magnesium Hydroxide (Milk Of Magnesia Liq*) 30 ml PO Q6H PRN PRN Reason: constipation Morphine Sulfate (Morphine Vial*) 2 mg IV Q2H PRN PRN Reason: PAIN Ondansetron HCl (Zofran Inj*) 4 mg IV Q6H PRN PRN Reason: nausea Pharmacy Profile Note (Vancomycin Trough Check) 1 note FOLLOW UP ONCE ONE Stop: 11/06/18 07:31 Trazodone HCl (Desyrel Tab*) 25 mg PO BEDTIME PRN PRN Reason: insomnia Vital Signs: Temp Pulse Resp BP Pulse Ox 97.6 F 79 16 128/69 97 11/05/18 16:54 11/05/18 16:54 11/05/18 16:54 11/05/18 16:54 11/05/18 16:54 Oxygen Devices in Use Now: None Appearance: Pt is an obese 58 yom who is laying in bed with HOB elevated approximately 45-degrees. He is in no acute distress and appears well. Eyes: No Scleral Icterus, PERRLA Ears/Nose/Mouth/Throat: NL Teeth, Lips, Gums, Clear Oropharnyx, Mucous Membranes Moist Neck: NL Appearance and Movements; NL JVP, Trachea Midline Respiratory: Symmetrical Chest Expansion and Respiratory Effort, Clear to Auscultation - Decreased breath sounds d/t body habitus; without wheeze, rales, rhonchi Cardiovascular: NL Sounds; No Murmurs; No JVD, RRR, No Edema Abdominal: NL Sounds; No Tenderness; No Distention, No Hepatosplenomegaly Extremities: No Edema, No Clubbing, Cyanosis, - - B/l LE with midfoot amputations. Dressings to LLE are CDI; no erythema or discharge noted. Neurological: Alert and Oriented x 3 Result Diagrams: 11/05/18 04:56 11/05/18 04:56 Microbiology and Other Data: Microbiology 11/04/18 09:05 Anaerobic Culture - Preliminary Wound Skin and Soft Tissue MRSA/MSSA (PCR - Final Mrsa Negative S.aureus Negative Gram Stain - Final Wound Culture - Preliminary Corynebacterium Striatum Enterococcus Faecalis Assess/Plan/Problems-Billing Assessment: Pt is a 58yom with PMHx peripheral neuropathy, DM, HTN, PVD, obesity who presents for L foot ulcer debridement. - Patient Problems (1) Status post debridement Comment: -Pt is doing well POD1 -Management per ortho team (2) Diabetes Comment: -BS elevated, but trending down after administering pt's home medications -Continue home doses of Humalog 10 TID, Lantus 58 q24h -Continue FS AC, HS and monitor need for SS (3) HTN (hypertension) Comment: -SBP 111-144, with one elevated to 153 -Continue amlodipine, lisinopril (4) Postoperative anemia Comment: -H/H lower than baseline -Continue to monitor (5) Hyponatremia Comment: -D/c IVF LR -Recheck in a.m. (6) Hyperlipidemia Comment: -Continue atorvastatin (7) DVT prophylaxis Comment: -Per ortho team: Lovenox (8) Full code status Comment: Status and Disposition: Inpatient. Discharge per ortho team.
[2018-11-06] MEDS: Vancomycin(*) 1,250 MG in NS 0.9% 250 ML* 250 ML IVPB SCH ×2 (00:13→09:07)
[2018-11-06] MEDS: Acetaminophen TAB* 325 MG PO SCH ×3 (04:21→23:00)
[2018-11-06] MEDS ORDERED: Vancomycin Trough Check NOTE FOLLOW UP ONE (07:30)
[2018-11-06 07:43] LABS: ABS Basophils 0.1 10^3/ul (0-0.2); ABS Eosinophils 0.6 10^3/ul (0-0.6); ABS Lymphocytes 1.3 10^3/ul (1.0-4.8); ABS Monocytes 0.9 10^3/ul (0-0.8); ABS Neutrophils 6.5 10^3/ul (1.5-7.7); ABS Nucleated RBC 0 10^3/ul; Eosinophil % 6.2 %; Hematocrit 28 % (42-52); Hemoglobin 8.8 g/dl (14.0-18.0); Lymphocyte % 14.1 %; Mean Corpuscular HGB Conc 32 g/dl (31-36); Mean Corpuscular Hemoglobin 23 pg (27-31); Mean Corpuscular Volume 71 fL (80-94); Mean Platelet Volume 6.8 fL (7.4-10.4); Nucleated Red Blood Cells % 0; Platelet Count 371 10^3/ul (150-450); Red Cell Distribution Width 19 % (10.5-15); White Blood Count 9.4 10^3/ul (3.5-10.8)
[2018-11-06 08:00] LABS: BUN/Creatinine Ratio 18.7 (8-20); Calcium 8.8 mg/dL (8.6-10.3); EGFR African American 86.5 (>60); EGFR Non-African American 71.5 (>60); Potassium 4.4 mmol/L (3.5-5.0)
--- NOTE | 2018-11-06 08:08 | PN ---
Progress Note - Progress Note Date of Service: 11/06/18 SOAP: Subjective: Main reports that he is feeling "much better" Objective: Temp Pulse Resp BP Pulse Ox 97.8 F 73 16 121/71 96 11/06/18 04:18 11/06/18 04:18 11/06/18 04:18 11/06/18 04:18 11/06/18 04:18 Assessment: L foot ulcer/infection POD2 s/p I&D. Plan: I spoke with Main that Dr Walker feels a repeat I&D tomorrow is warranted. He is in agreement with this. Discussed that likely will VAC wound after I&D. He is fine with OR tomorrow with either Dr Walker or me.
[2018-11-06] MEDS: Gabapentin CAP(*) 400 MG PO SCH ×2 (09:04→23:01)
[2018-11-06] MEDS: FLUoxetine CAP* 20 MG PO SCH (09:05)
[2018-11-06] MEDS: amLODIPine TAB* 5 MG PO SCH (09:06)
[2018-11-06] MEDS: Lisinopril TAB* 10 MG PO SCH (09:06)
[2018-11-06] MEDS: Insulin LISPRO* 1 UNITS UNIT SUBCUT SCH ×3 (09:07→22:59)
[2018-11-06] MEDS: Docusate CAP* 100 MG PO SCH ×2 (09:07→23:02)
[2018-11-06] MEDS ORDERED: Vancomycin per Pharmacy* NOTE FOLLOW UP PRN (09:30)
[2018-11-06] MEDS: Magnesium Hydroxide LIQ* 30 ML UDC PO SCH ×2 (09:42→23:02)
[2018-11-06] MEDS: IRON VITAMIN C PO SCH (10:13)
--- NOTE | 2018-11-06 12:10 | PN ---
Subjective Date of Service: 11/06/18 Interval History: Pt feels well. good appetite. plan to go back to OR tomorrow Objective Active Medications: Acetaminophen (Tylenol Tab*) 975 mg PO 0400,1200,2000 [facility] Last Admin: 11/06/18 04:21 Dose: 975 mg Al Hydrox/Mg Hydrox/Simethicone (Maalox Plus*) 30 ml PO Q6H PRN PRN Reason: INDIGESTION Amlodipine [facility]ylate ([facility]asc Tab*) [facility] Last Admin: 11/06/18 09:06 Dose: 5 mg Atorvastatin Calcium (Lipitor*) 5 mg PO QPM [facility]; Protocol Last Admin: 11/05/18 18:11 Dose: 5 mg Docusate Sodium (Colace Cap*) 100 mg PO BID [facility] Last Admin: 11/06/18 09:07 Dose: Not Given Enoxaparin Sodium (Lovenox(*)) 40 mg SUBCUT Q24H [facility] Last Admin: 11/05/18 16:27 Dose: 40 mg Fluoxetine HCl (Prozac Cap*) [facility] Last Admin: 11/06/18 09:05 Dose: 40 mg Gabapentin (Neurontin Cap(*)) 1,200 mg PO BID [facility] Last Admin: 11/06/18 09:04 Dose: 1,200 mg Vancomycin HCl 1,000 mg/ (Sodium Chloride) 250 mls @ 166.667 mls/hr IVPB Q8H [facility] Insulin Glargine (Lantus(*)) 30 units SUBCUT QPM [facility] Insulin Human Lispro (Humalog*) 10 units SUBCUT TID [facility] Last Admin: 11/06/18 09:07 Dose: 10 unit Iron/Vitamin C (Vitron-C (Nf)) [facility] Last Admin: 11/06/18 10:13 Dose: Not Given Lisinopril (Prinivil Tab*) 10 mg PO QAM [facility] Last Admin: 11/06/18 09:06 Dose: 10 mg Magnesium Hydroxide (Milk Of Magnesia Liq*) 30 ml PO BID [facility] Last Admin: 11/06/18 09:42 Dose: Not Given Magnesium Hydroxide (Milk Of Magnesia Liq*) 30 ml PO Q6H PRN PRN Reason: constipation Morphine Sulfate (Morphine Vial*) 2 mg IV Q2H PRN PRN Reason: PAIN Ondansetron HCl (Zofran Inj*) 4 mg IV Q6H PRN PRN Reason: nausea Pharmacy Consult (Vancomycin Per Pharmacy*) 1 note FOLLOW UP . PRN PRN Reason: PER PROTOCOL Pharmacy Profile Note (Vancomycin Trough Check) 1 note FOLLOW UP ONCE ONE Stop: 11/07/18 09:31 Trazodone HCl (Desyrel Tab*) 25 mg PO BEDTIME PRN PRN Reason: insomnia Vital Signs - 8 hr 11/06/18 11/06/18 11/06/18 04:18 08:33 09:04 Temperature 97.8 F 97.3 F Pulse Rate 73 79 Respiratory 16 16 18 Rate Blood Pressure 121/71 133/67 (mmHg) O2 Sat by Pulse 96 96 Oximetry Oxygen Devices in Use Now: None Appearance: 58 yo M, obese, in nAD, AAOx3 Eyes: No Scleral Icterus, PERRLA Ears/Nose/Mouth/Throat: NL Teeth, Lips, Gums, Mucous Membranes Moist Neck: NL Appearance and Movements; NL JVP, Trachea Midline Respiratory: Symmetrical Chest Expansion and Respiratory Effort, Clear to Auscultation Cardiovascular: NL Sounds; No Murmurs; No JVD, RRR Abdominal: NL Sounds; No Tenderness; No Distention, No Hepatosplenomegaly Lymphatic: No Cervical Adenopathy Extremities: No Clubbing, Cyanosis, - - trace left ankle edeam Skin: - - left foot s/p forefoot amputation in post op dressings (not removed), R foot s/p forefoot amputation remotely with stump healed well Neurological: Alert and Oriented x 3, NL Muscle Strength and Tone Result Diagrams: 11/06/18 07:27 11/06/18 07:28 Microbiology and Other Data: Microbiology 11/04/18 09:05 Anaerobic Culture - Preliminary Wound Skin and Soft Tissue MRSA/MSSA (PCR - Final Mrsa Negative S.aureus Negative Gram Stain - Final Wound Culture - Preliminary Corynebacterium Striatum Enterococcus Faecalis Assess/Plan/Problems-Billing Assessment: Pt is a 58yom with PMHx peripheral neuropathy, DM, HTN, PVD, obesity who presents for L foot ulcer debridement. - Patient Problems (1) Status post debridement Comment: -Pt is doing well , planned to go back to OR for VAC tomorrow -Management per ortho team -cont Vancomycin, ID following (2) Hyperlipidemia Comment: -Continue atorvastatin (3) Hyponatremia Comment: improved after IVF d/c'd (4) Postoperative anemia Comment: -acute post op -Continue to monitor (5) Diabetes Comment: -Continue home dose of Humalog 10 TID, lower Lantus due to NPO in AM -Continue FS AC, HS and monitor need for SS (6) HTN (hypertension) Comment: -controlled -Continue amlodipine, lisinopril (7) DVT prophylaxis Comment: -Per ortho team: Lovenox Status and Disposition: Medicine consult, will follow
[2018-11-06] MEDS: Atorvastatin* 10 MG TAB PO SCH (17:40)
[2018-11-06] MEDS: Vancomycin(*) 1,000 MG in NS 0.9% 250 ML* 250 ML IVPB SCH (17:54)
[2018-11-06] MEDS: Insulin GLARGINE(*) 1 UNITS UNIT SUBCUT SCH (19:09)
[2018-11-06] MEDS ORDERED: fentaNYL* 50 MCG/ML 2 ML VIAL (100 MCG VIAL) ONE (19:21)
[2018-11-06] MEDS ORDERED: Ondansetron INJ* 2 MG/ML VIAL ONE (19:21)
[2018-11-06] MEDS ORDERED: Lidocaine 2% PF * 5 ML VIAL ONE (19:21)
[2018-11-06] MEDS ORDERED: Propofol* 10 MG/ML 20 ML BTL ONE (19:21)
[2018-11-06] MEDS ORDERED: Midazolam* 1 MG/ML 5 ML VIAL (5 MG) ONE (19:21)
[2018-11-06] MEDS ORDERED: Midazolam* 1 MG/ML 2 ML VIAL (2 MG) ONE (20:23)
--- NOTE | 2018-11-06 20:56 | OP ---
Operative Report - Blank - Operative Report Date of Operation: 11/06/18 Note: PATIENT: Main Maldonado DATE OF : 1960 DATE OF SURGERY: 11/06/2018 SURGEON: Teddy Canales MD PLASTERER APPRENTICE: none ANESTHESIOLOGIST: Dr. Sainz PREOPERATIVE DIAGNOSIS: Left foot diabetic ulcer with infection POSTOPERATIVE DIAGNOSIS: Left foot diabetic ulcer with infection OPERATION: Left foot irrigation and debridement and placement of a wound VAC ANESTHESIA: MAC IMPLANTS: wound VAC TOURNIQUET TIME: none SPECIMENS: culture swabs to micro ESTIMATED BLOOD LOSS: minimal COMPLICATIONS: none STATUS: Stable from the operating room to the recovery room and then back to the floor. INDICATIONS FOR PROCEDURE: Main has a left foot diabetic ulcer and infection that had an initial I&D 2 days ago. Both operative and non-operative treatment alternatives were reviewed. Further, the nature and risks of surgery were reviewed in careful detail. Our discussions regarding the risks of surgery included, but were not limited to, persistent or worsening infection, wound problems, need for further surgery, failure of the surgery, need for further amputation, and even the remote chance of catastrophic complication. DESCRIPTION OF PROCEDURE: The patient was seen in the preoperative holding unit and informed written consent was obtained. The appropriate extremity was marked. The patient was then brought to the operating room and carefully positioned on the operating room table. Anesthesia was induced. All bony prominences were padded with great care. A well-padded thigh tourniquet was placed. A chlorhexidine based pre- scrub was performed followed by a betadine prep and drape in standard sterile fashion. A surgical safety pause was then conducted in which we confirmed the appropriate patient, extremity, planned procedure, availability of equipment, indication and administration of antibiotics, and DVT prophylaxis in the form of a compression boot on the non-surgical extremity. I performed a thorough debridement of the wound, which measured 3cm in width, 3cm in length and 6cm in depth. This included the skin, subcutaneous, fascial, muscle layers, down to bone. I used a 15 blade scalpel to sharply debride any necrotic and infected-appearing tissue in these layers. Culture swabs were sent. Once all non-healthy appearing tissue was excised, sterile saline was used with cystoscopy tubing to perform a thorough irrigation. I then placed vertical mattress sutures at the incision line where the wound had gapped open. I then placed a wound VAC into the plantar foot wound. The patient was then awakened from anesthesia and transferred to the recovery room in stable condition. There were no complications. All needle and sponge counts were correct at the end of the case. ATTESTATION: I attest I was present and scrubbed and performed the entire procedure myself. POSTOPERATIVE PLAN: VAC at 125mmHg. Continue antibiotics per ID. Likely repeat I &D and wound VAC change in a few days.
[2018-11-06] MEDS ORDERED: oxyCODONE TAB* 5 MG TAB PO PRN ×2 (22:32)
[2018-11-07] MEDS: Vancomycin(*) 1,000 MG in NS 0.9% 250 ML* 250 ML IVPB SCH ×2 (02:25→11:29)
[2018-11-07] MEDS: Acetaminophen TAB* 325 MG PO SCH ×3 (04:34→21:07)
[2018-11-07 05:37] LABS: ABS Basophils 0.1 10^3/ul (0-0.2); ABS Eosinophils 0.8 10^3/ul (0-0.6); ABS Lymphocytes 1.7 10^3/ul (1.0-4.8); ABS Neutrophils 6.5 10^3/ul (1.5-7.7); ABS Nucleated RBC 0 10^3/ul; Hematocrit 27 % (42-52); Hemoglobin 8.7 g/dl (14.0-18.0); Lymphocyte % 16.5 %; Mean Corpuscular HGB Conc 32 g/dl (31-36); Mean Corpuscular Hemoglobin 23 pg (27-31); Mean Corpuscular Volume 71 fL (80-94); Mean Platelet Volume 6.7 fL (7.4-10.4); Nucleated Red Blood Cells % 0; Platelet Count 395 10^3/ul (150-450); Red Cell Distribution Width 20 % (10.5-15); White Blood Count 10.1 10^3/ul (3.5-10.8)
[2018-11-07 05:49] LABS: BUN/Creatinine Ratio 15.5 (8-20); Calcium 8.6 mg/dL (8.6-10.3); EGFR African American 78.8 (>60); EGFR Non-African American 65.1 (>60)
[2018-11-07] MEDS: Magnesium Hydroxide LIQ* 30 ML UDC PO SCH ×2 (07:41→21:10)
[2018-11-07] MEDS: Docusate CAP* 100 MG PO SCH ×2 (07:41→21:08)
[2018-11-07] MEDS: Gabapentin CAP(*) 400 MG PO SCH ×2 (07:44→21:07)
[2018-11-07] MEDS: FLUoxetine CAP* 20 MG PO SCH (07:44)
[2018-11-07] MEDS: amLODIPine TAB* 5 MG PO SCH (07:44)
[2018-11-07] MEDS: Lisinopril TAB* 10 MG PO SCH (07:45)
[2018-11-07] MEDS: IRON VITAMIN C PO SCH (07:46)
--- NOTE | 2018-11-07 08:27 | PN ---
Subjective Date of Service: 11/07/18 Interval History: Pt feels well. had further I&D of left foot stump and Vac dressing placed Objective Active Medications: Acetaminophen (Tylenol Tab*) 975 mg PO 0400,1200,2000 [facility] Last Admin: 11/07/18 04:34 Dose: 975 mg Al Hydrox/Mg Hydrox/Simethicone (Maalox Plus*) 30 ml PO Q6H PRN PRN Reason: INDIGESTION Amlodipine Besylate (Norvasc Tab*) [facility] Last Admin: 11/07/18 07:44 Dose: 5 mg Atorvastatin Calcium (Lipitor*) 5 mg PO QPM [facility]; Protocol Last Admin: 11/06/18 17:40 Dose: Not Given Docusate Sodium (Colace Cap*) 100 mg PO BID [facility] Last Admin: 11/07/18 07:41 Dose: Not Given Enoxaparin Sodium (Lovenox(*)) 40 mg SUBCUT Q24H [facility] Fluoxetine HCl (Prozac Cap*) 40 mg PO QAM [facility] Last Admin: 11/07/18 07:44 Dose: 40 mg Gabapentin (Neurontin Cap(*)) 1,200 mg PO BID [facility] Last Admin: 11/07/18 07:44 Dose: 1,200 mg Vancomycin HCl 1,000 mg/ (Sodium Chloride) 250 mls @ 166.667 mls/hr IVPB Q8H [facility] Last Admin: 11/07/18 02:25 Dose: 166.667 mls/hr Insulin Glargine (Lantus(*)) 30 units SUBCUT QPM [facility] Last Admin: 11/06/18 19:09 Dose: Not Given Insulin Human Lispro (Humalog*) 10 units SUBCUT TID [facility] Last Admin: 11/06/18 22:59 Dose: 10 unit Iron/Vitamin C (Vitron-C (Nf)) 1 tab [facility] Last Admin: 11/07/18 07:46 Dose: Not Given Lisinopril (Prinivil Tab*) 10 mg PO QAM [facility] Last Admin: 11/07/18 07:45 Dose: 10 mg Magnesium Hydroxide (Milk Of Magnesia Liq*) 30 ml PO BID [facility] Last Admin: 11/07/18 07:41 Dose: Not Given Magnesium Hydroxide (Milk Of Magnesia Liq*) 30 ml PO Q6H PRN PRN Reason: constipation Morphine Sulfate (Morphine Vial*) 2 mg IV Q2H PRN PRN Reason: PAIN Ondansetron HCl (Zofran Inj*) 4 mg IV Q6H PRN PRN Reason: nausea Oxycodone HCl (Roxycodone Tab*) 5 mg PO Q4H PRN PRN Reason: PAIN - MILD TO MODERATE Oxycodone HCl (Roxycodone Tab*) 10 mg PO Q4H PRN PRN Reason: PAIN - MODERATE TO SEVERE Pharmacy Consult (Vancomycin Per Pharmacy*) 1 note FOLLOW UP . PRN PRN Reason: PER PROTOCOL Pharmacy Profile Note (Vancomycin Trough Check) 1 note FOLLOW UP ONCE ONE Stop: 11/07/18 09:31 Trazodone HCl (Desyrel Tab*) 25 mg PO BEDTIME PRN PRN Reason: insomnia Vital Signs - 8 hr 11/07/18 11/07/18 11/07/18 01:20 03:10 05:09 Temperature 98.0 F 98.2 F 98.3 F Pulse Rate 78 76 70 Respiratory 20 16 18 Rate Blood Pressure 127/63 121/76 131/69 (mmHg) O2 Sat by Pulse 93 88 95 Oximetry 11/07/18 11/07/18 07:36 07:44 Temperature 97.4 F Pulse Rate 69 Respiratory 16 16 Rate Blood Pressure 144/74 (mmHg) O2 Sat by Pulse 97 Oximetry Oxygen Devices in Use Now: None Appearance: 58 yo M in nAD, aAOx3 Eyes: No Scleral Icterus, PERRLA Ears/Nose/Mouth/Throat: NL Teeth, Lips, Gums, Mucous Membranes Moist Neck: NL Appearance and Movements; NL JVP, Trachea Midline Respiratory: Symmetrical Chest Expansion and Respiratory Effort, Clear to Auscultation Cardiovascular: NL Sounds; No Murmurs; No JVD, RRR Abdominal: NL Sounds; No Tenderness; No Distention Lymphatic: No Cervical Adenopathy Extremities: No Clubbing, Cyanosis, - - left distal leg trace edema, stump in VAC dressing Skin: No Nodules or Sclerosis Neurological: Alert and Oriented x 3, NL Muscle Strength and Tone Result Diagrams: 11/07/18 04:57 11/07/18 04:57 Microbiology and Other Data: Microbiology 11/04/18 09:05 Anaerobic Culture - Preliminary Wound Skin and Soft Tissue MRSA/MSSA (PCR - Final Mrsa Negative S.aureus Negative Gram Stain - Final Wound Culture - Preliminary Corynebacterium Striatum Enterococcus Faecalis Assess/Plan/Problems-Billing Assessment: Pt is a 58yom with PMHx peripheral neuropathy, DM, HTN, PVD, obesity who presents for L foot ulcer debridement. - Patient Problems (1) Status post debridement Comment: -Pt is doing well , s/p VAC dressing placed on 11/06/18 -Management per ortho team -cont Vancomycin, ID following (2) Hyperlipidemia Comment: -Continue atorvastatin (3) Hyponatremia Comment: improved after IVF d/c'd (4) Postoperative anemia Comment: -acute post op -Continue to monitor (5) Diabetes Comment: -Continue home dose of Humalog 10 TID, cont lower Lantus dose -Continue FS AC, HS and monitor need for SS (6) HTN (hypertension) Comment: -controlled -Continue amlodipine, lisinopril (7) DVT prophylaxis Comment: -Per ortho team: Lovenox Status and Disposition: Medicine consult, will follow
[2018-11-07] MEDS ORDERED: Vancomycin Trough Check NOTE FOLLOW UP ONE (09:30)
[2018-11-07] MEDS: Insulin LISPRO* 1 UNITS UNIT SUBCUT SCH ×3 (09:49→21:09)
[2018-11-07 10:22] LABS: EGFR African American 81.2 (>60); EGFR Non-African American 67.1 (>60)
[2018-11-07 10:38] LABS: Vancomycin Trough 20.5 mcg/mL
--- NOTE | 2018-11-07 11:55 | PN ---
Progress Note - Progress Note Date of Service: 11/07/18 SOAP: Subjective: CC: Left foot infection HPI: Mr. Maldonado is a 58 yo male with PMH significant for asperger's, DM, HTN, PVD , morbid obesity, PTSD, panic and anxiety disorder. Previously he was treated in June of 2018 with debridement and VAC dressing; and the left heel ulcer healed. He then presented with a plantar ulcer that was felt to be secondary to a brace. This ulcer has been treated with multiple debridements, packing and casting and the area continued to get larger. He presented to the hospital on and underwent a debridement, ostectomy and packing of the left midfoot ulcer with Dr. Walker. He later returned to the OR on 11/06/18 and underwent an I +D, and wound vac placement with Dr. Canales. Denies fever, chills, shortness of breath, chest discomfort, diarrhea, or urinary symptoms. Objective: Vital Signs 11/07/18 07:36 Temperature 97.4 F Temperature Oral Source Pulse Rate 69 Respiratory 16 Rate Blood Pressure 144/74 (mmHg) Blood Pressure 90 Mean O2 Sat by Pulse 97 Oximetry Patient on Room Yes Air Physical Exam: General: NAD, laying in bed Neurological: Alert and Oriented x 4 HEENT: No thrush, mucous membranes moist Cardiovascular: Heart rate regular Respiratory: Lung sounds clear Abdominal: Bowel sounds present. Abdomen soft, large and non tender Skin: No rashes or abnormalities seen on the exposed skin. There is an DONALD wrap and wound vac to the left LE. Laboratory Tests 11/07/18 11/07/18 04:57 04:57 WBC 10.1 Hgb 8.7 L Hct 27 L Plt Count 395 Sodium 133 L Potassium 4.0 Chloride 101 Carbon Dioxide 26 BUN 18 Creatinine 1.16 Glucose 137 H Microbiology 11/06/18 20:41 Foot Left Skin and Soft Tissue MRSA/MSSA (PCR - Final 11/06/18 20:41 Foot Left Gram Stain - Final Mrsa Negative S.aureus Negative 11/04/18 09:05 Wound Gram Stain - Final Mrsa Negative S.aureus Negative 11/06/18 20:41 Wound Anaerobic Culture - Preliminary No Growth Day 1 11/06/18 20:41 Foot Left Wound Culture - Preliminary No Growth Day 1 11/04/18 09:05 Wound Wound Culture - Preliminary Corynebacterium Striatum Enterococcus Faecalis Assessment: 1. Chronic osteomyelitis left midfoot s/p amputation and now s/p I+D and wound vac placement. No leukocytosis and afebrile. Wound culture with Corynebacterium Striatum and Enterococcus Faecalis. He has previously grown Corynebacterium Striatum in this foot in the past. 2. Diabetes with hyperglycemia and neuropathy 3. Morbid obesity. BMI ~ 46 Plan: 1. Continue Vancomycin for now. Vancomycin trough goal 15-20. Weekly labs on discharge: CBC, CMP and CRP. Thank you for this consultation.
[2018-11-07] MEDS: Vancomycin(*) 1,500 MG in NS 0.9% 250 ML* 250 ML IVPB SCH (12:37)
[2018-11-07] MEDS: Enoxaparin(*) 40 MG/0.4 ML SYR SUBCUT SCH (12:38)
--- NOTE | 2018-11-07 14:00 | PN ---
Progress Note - Progress Note Date of Service: 11/07/18 SOAP: Subjective: []Patient seen and examined at bedside today. Denies pain of LLE. No chest pain , SOB, dizziness, nausea, fever or chills. Objective: []General: Well appearing, NAD LLE: Left foot wound vac with good suction, no erythema surrounding wound. Insensate foot consistent with baseline. Calves supple and nontender without erythema Assessment: []POD 1 s/p Left foot irrigation and debridement and placement of a wound VAC Dr Canales Plan: []NWB LLE Continue IV abax per ID: On vanco DVT prophy: lovenox 40 mg sq qd Continue wound vac, likely repeat I&D with vac change in a few days Vital Signs Temp 97.5 F 11/07/18 11:08 Pulse 73 11/07/18 11:08 Resp 16 11/07/18 11:08 BP 123/58 11/07/18 11:08 Pulse Ox 96 11/07/18 11:08 Intake & Output 11/06/18 11/07/18 11/07/18 18:59 06:59 18:59 Intake Total 0 700 360 Output Total 1510 775 350 Balance -1510 -75 10 Intake: IV Fluids 300 ABX - VANCOMYCIN 275 NS (0.9%) 25 Oral 0 400 360 Output: Urine 1510 775 350 Other: # Bowel Movements 1 0 Estimated Stool Amount Large Laboratory Last Values WBC 10.1 10^3/ul (3.5-10.8) 11/07/18 04:57 RBC 3.80 10^6/ul (4.00-5.40) L 11/07/18 04:57 Hgb 8.7 g/dl (14.0-18.0) L 11/07/18 04:57 Hct 27 % (42-52) L 11/07/18 04:57 MCV 71 fL (80-94) L 11/07/18 04:57 MCH 23 pg (27-31) L 11/07/18 04:57 MCHC 32 g/dl (31-36) 11/07/18 04:57 RDW 20 % (10.5-15) H 11/07/18 04:57 Plt Count 395 10^3/ul (150-450) 11/07/18 04:57 MPV 6.7 fL (7.4-10.4) L 11/07/18 04:57 Neut % (Auto) 64.7 % 11/07/18 04:57 Lymph % (Auto) 16.5 % 11/07/18 04:57 Mccormick % (Auto) 10.1 % 11/07/18 04:57 Eos % (Auto) 8.0 % 11/07/18 04:57 Baso % (Auto) 0.7 % 11/07/18 04:57 Absolute Neuts (auto) 6.5 10^3/ul (1.5-7.7) 11/07/18 04:57 Absolute Lymphs (auto) 1.7 10^3/ul (1.0-4.8) 11/07/18 04:57 Absolute Monos (auto) 1.0 10^3/ul (0-0.8) H 11/07/18 04:57 Absolute Eos (auto) 0.8 10^3/ul (0-0.6) H 11/07/18 04:57 Absolute Basos (auto) 0.1 10^3/ul (0-0.2) 11/07/18 04:57 Absolute Nucleated RBC 0 10^3/ul 11/07/18 04:57 Nucleated RBC % 0 11/07/18 04:57 Sodium 133 mmol/L (135-145) L 11/07/18 04:57 Potassium 4.0 mmol/L (3.5-5.0) 11/07/18 04:57 Chloride 101 mmol/L (101-111) 11/07/18 04:57 Carbon Dioxide 26 mmol/L (22-32) 11/07/18 04:57 Anion Gap 6 mmol/L (2-11) 11/07/18 04:57 BUN 16 mg/dL (6-24) 11/07/18 09:54 Creatinine 1.13 mg/dL (0.67-1.17) 11/07/18 09:54 Est GFR ( Amer) 81.2 (>60) 11/07/18 09:54 Est GFR (Non-Af Amer) 67.1 (>60) 11/07/18 09:54 BUN/Creatinine Ratio 15.5 (8-20) 11/07/18 04:57 Glucose 137 mg/dL (70-100) H 11/07/18 04:57 POC Glucose (mg/dL) 170 mg/dL (70-100) H 11/07/18 12:40 Calcium 8.6 mg/dL (8.6-10.3) 11/07/18 04:57 Vancomycin Trough 20.5 mcg/mL 11/07/18 09:54
[2018-11-07] MEDS: Atorvastatin* 10 MG TAB PO SCH (18:02)
[2018-11-07] MEDS: Insulin GLARGINE(*) 1 UNITS UNIT SUBCUT SCH (18:03)
[2018-11-08] MEDS: Vancomycin(*) 1,500 MG in NS 0.9% 250 ML* 250 ML IVPB SCH ×2 (00:37→12:54)
[2018-11-08] MEDS: Acetaminophen TAB* 325 MG PO SCH ×3 (04:31→20:26)
[2018-11-08 05:27] LABS: Mean Platelet Volume 6.8 fL (7.4-10.4); Platelet Count 399 10^3/ul (150-450)
--- NOTE | 2018-11-08 10:05 | PN ---
Subjective Date of Service: 11/08/18 Interval History: Pt has no new complaints Objective Active Medications: Acetaminophen (Tylenol Tab*) 975 mg PO 0400,1200,2000 [facility] Last Admin: 11/08/18 04:31 Dose: 975 mg Al Hydrox/Mg Hydrox/Simethicone (Maalox Plus*) 30 ml PO Q6H PRN PRN Reason: INDIGESTION Amlodipine [facility] ([facility]asc [facility]*) [facility] Last Admin: 11/07/18 07:44 Dose: 5 mg Atorvastatin Calcium (Lipitor*) 5 mg PO QPM [facility]; Protocol Last Admin: 11/07/18 18:02 Dose: 5 mg Docusate Sodium (Colace Cap*) 100 mg PO BID [facility] Last Admin: 11/07/18 21:08 Dose: Not Given Enoxaparin Sodium (Lovenox(*)) 40 mg SUBCUT Q24H [facility] Last Admin: 11/07/18 12:38 Dose: 40 mg Fluoxetine HCl (Prozac Cap*) [facility] Last Admin: 11/07/18 07:44 Dose: 40 mg Gabapentin (Neurontin Cap(*)) 1,200 mg PO BID [facility] Last Admin: 11/07/18 21:07 Dose: 1,200 mg Vancomycin HCl 1,500 mg/ (Sodium Chloride) 250 mls @ 166.667 mls/hr IVPB Q12H [facility] Last Admin: 11/08/18 00:37 Dose: 166.667 mls/hr Insulin Glargine (Lantus(*)) 30 units SUBCUT QPM [facility] Last Admin: 11/07/18 18:03 Dose: 30 units Insulin Human Lispro (Humalog*) 10 units SUBCUT TID [facility] Last Admin: 11/07/18 21:09 Dose: 10 unit Iron/Vitamin C (Vitron-C (Nf)) [facility] Last Admin: 11/07/18 07:46 Dose: Not Given Lisinopril (Prinivil Tab*) [facility] Last Admin: 11/07/18 07:45 Dose: 10 mg Magnesium Hydroxide (Milk Of Magnesia Liq*) 30 ml PO BID [facility] Last Admin: 11/07/18 21:10 Dose: Not Given Magnesium Hydroxide (Milk Of Magnesia Liq*) 30 ml PO Q6H PRN PRN Reason: constipation Morphine Sulfate (Morphine Vial*) 2 mg IV Q2H PRN PRN Reason: PAIN Ondansetron HCl (Zofran Inj*) 4 mg IV Q6H PRN PRN Reason: nausea Oxycodone HCl (Roxycodone Tab*) 5 mg PO Q4H PRN PRN Reason: PAIN - MILD TO MODERATE Oxycodone HCl (Roxycodone Tab*) 10 mg PO Q4H PRN PRN Reason: PAIN - MODERATE TO SEVERE Pharmacy Consult (Vancomycin Per Pharmacy*) 1 note FOLLOW UP . PRN PRN Reason: PER PROTOCOL Pharmacy Profile Note (Vancomycin Trough Check) 1 note FOLLOW UP ONCE ONE Stop: 11/09/18 11:31 Trazodone HCl (Desyrel Tab*) 25 mg PO BEDTIME PRN PRN Reason: insomnia Vital Signs - 8 hr 11/08/18 11/08/18 02:35 04:40 Temperature 97.6 F 97.7 F Pulse Rate 68 71 Respiratory 16 16 Rate Blood Pressure 136/74 130/71 (mmHg) O2 Sat by Pulse 97 90 Oximetry Oxygen Devices in Use Now: None Appearance: 58 yo M in nAD, AAOx3 Eyes: No Scleral Icterus, PERRLA Ears/Nose/Mouth/Throat: NL Teeth, Lips, Gums, Mucous Membranes Moist Neck: NL Appearance and Movements; NL JVP, Trachea Midline Respiratory: Symmetrical Chest Expansion and Respiratory Effort, Clear to Auscultation Cardiovascular: NL Sounds; No Murmurs; No JVD, RRR Abdominal: NL Sounds; No Tenderness; No Distention, No Hepatosplenomegaly Lymphatic: No Cervical Adenopathy Extremities: No Clubbing, Cyanosis, - - trace left leg edema, stump in Vac dressing Neurological: Alert and Oriented x 3, NL Muscle Strength and Tone Result Diagrams: 11/08/18 05:02 11/07/18 09:54 Microbiology and Other Data: Microbiology 11/04/18 09:05 Anaerobic Culture - Preliminary Wound Skin and Soft Tissue MRSA/MSSA (PCR - Final Mrsa Negative S.aureus Negative Gram Stain - Final Wound Culture - Preliminary Corynebacterium Striatum Enterococcus Faecalis Assess/Plan/Problems-Billing Assessment: Pt is a 58yom with PMHx peripheral neuropathy, DM, HTN, PVD, obesity who presents for L foot ulcer debridement. - Patient Problems (1) Status post debridement Comment: -Pt is doing well , s/p VAC dressing placed on 11/06/18, planned to exchange Vac on Sunday -Management per ortho team -cont Vancomycin, ID following. wound growing corynebacterium, enterococcus (2) Hyperlipidemia Comment: -Continue atorvastatin (3) Hyponatremia Comment: improved after IVF d/c'd (4) Postoperative anemia Comment: -acute post op -Continue to monitor (5) Diabetes Comment: -Continue home dose of Humalog 10 TID, cont lower Lantus dose -Continue FS AC, HS and monitor need for SS (6) HTN (hypertension) Comment: -controlled -Continue amlodipine, lisinopril (7) DVT prophylaxis Comment: -Per ortho team: Lovenox Status and Disposition: Medicine consult, will follow
[2018-11-08] MEDS: Magnesium Hydroxide LIQ* 30 ML UDC PO SCH ×3 (10:19→20:51)
[2018-11-08] MEDS: Gabapentin CAP(*) 400 MG PO SCH ×2 (10:19→20:26)
[2018-11-08] MEDS: amLODIPine TAB* 5 MG PO SCH (10:20)
[2018-11-08] MEDS: Insulin LISPRO* 1 UNITS UNIT SUBCUT SCH ×3 (10:20→21:51)
[2018-11-08] MEDS: FLUoxetine CAP* 20 MG PO SCH (10:20)
[2018-11-08] MEDS: Docusate CAP* 100 MG PO SCH ×3 (10:20→20:51)
[2018-11-08] MEDS: IRON VITAMIN C PO SCH (10:22)
[2018-11-08] MEDS: Lisinopril TAB* 10 MG PO SCH (10:22)
--- NOTE | 2018-11-08 12:17 | PN ---
Progress Note - Progress Note Date of Service: 11/08/18 SOAP: Subjective: []Patient seen at bedside. Had wound vac leak earlier, repairs by Mendoza RN with additional Tegaderm and appears to working. Patient without new ortho complaints. Objective: [] Vital Signs Temp 98.6 F 11/08/18 07:46 Pulse 68 11/08/18 07:46 Resp 18 11/08/18 10:19 BP 131/81 11/08/18 07:46 Pulse Ox 91 11/08/18 07:46 Intake & Output 11/07/18 11/08/18 11/08/18 18:59 06:59 18:59 Intake Total 1360 2180 Output Total 975 900 400 Balance 385 1280 -400 Intake: IV Fluids 320 ABX - VANCOMYCIN 310 NS (0.9%) 10 Oral 1360 1860 Output: Urine 975 900 400 Other: # Bowel Movements 1 Estimated Stool Amount Medium Laboratory Results - last 24 hr 11/07/18 11/07/18 11/07/18 12:40 17:36 21:07 Plt Count MPV POC Glucose (mg/dL) 170 H 134 H 193 H 11/08/18 05:02 Plt Count 399 MPV 6.8 L POC Glucose (mg/dL) Microbiology 11/06/18 20:41 Skin and Soft Tissue MRSA/MSSA (PCR - Final Foot Left Mrsa Negative S.aureus Negative Gram Stain - Final Wound Culture - Preliminary No Growth Day 2 11/06/18 20:41 Anaerobic Culture - Preliminary Wound No Growth Day 2 11/04/18 09:05 Anaerobic Culture - Final Wound Skin and Soft Tissue MRSA/MSSA (PCR - Final Mrsa Negative S.aureus Negative Gram Stain - Final Wound Culture - Final Corynebacterium Striatum Enterococcus Faecalis Left LE stump with some bloody drainage seen under tegaderm. Wound vac now up and running Assessment: []s/p debridement infected stump LLE POD #5 Plan: []Continue NWB Wound vac with change in OR Saturday 11/[address] Walker Continue IV antibiotics Lovenox 40 qd for DVT proph
[2018-11-08] MEDS: Enoxaparin(*) 40 MG/0.4 ML SYR SUBCUT SCH (12:54)
[2018-11-08] MEDS: Insulin GLARGINE(*) 1 UNITS UNIT SUBCUT SCH (18:03)
[2018-11-08] MEDS: Atorvastatin* 10 MG TAB PO SCH (18:06)
[2018-11-09] MEDS: Vancomycin(*) 1,500 MG in NS 0.9% 250 ML* 250 ML IVPB SCH ×2 (00:21→13:50)
[2018-11-09] MEDS: Acetaminophen TAB* 325 MG PO SCH ×3 (03:23→21:41)
[2018-11-09 06:19] LABS: Hematocrit 27 % (42-52); Hemoglobin 8.9 g/dl (14.0-18.0); Mean Corpuscular HGB Conc 32 g/dl (31-36); Mean Corpuscular Hemoglobin 23 pg (27-31); Mean Corpuscular Volume 71 fL (80-94); Mean Platelet Volume 6.4 fL (7.4-10.4); Platelet Count 431 10^3/ul (150-450); Red Blood Count 3.85 10^6/ul (4.00-5.40); Red Cell Distribution Width 19 % (10.5-15); White Blood Count 10.4 10^3/ul (3.5-10.8)
[2018-11-09 06:25] LABS: BUN/Creatinine Ratio 12.1 (8-20); Calcium 8.3 mg/dL (8.6-10.3); EGFR African American 94.6 (>60); EGFR Non-African American 78.2 (>60); Potassium 4.3 mmol/L (3.5-5.0)
[2018-11-09] MEDS: Insulin LISPRO* 1 UNITS UNIT SUBCUT SCH ×3 (09:06→21:41)
[2018-11-09] MEDS: Gabapentin CAP(*) 400 MG PO SCH ×2 (09:09→21:38)
[2018-11-09] MEDS: Lisinopril TAB* 10 MG PO SCH (09:09)
[2018-11-09] MEDS: FLUoxetine CAP* 20 MG PO SCH (09:10)
[2018-11-09] MEDS: Docusate CAP* 100 MG PO SCH ×3 (09:12→21:51)
[2018-11-09] MEDS: amLODIPine TAB* 5 MG PO SCH (09:12)
[2018-11-09] MEDS: Magnesium Hydroxide LIQ* 30 ML UDC PO SCH ×2 (09:16→21:51)
--- NOTE | 2018-11-09 10:32 | PN ---
Progress Note - Progress Note Date of Service: 11/09/18 SOAP: Subjective: []Patient seen at bedside. Patient without new ortho complaints. Denies any chest pain, SOB, nausea or vomiting. Objective: []Left LE stump dressing is c/d/i Wound vac now up and running Vital Signs Temp 97.4 F 11/09/18 08:04 Pulse 84 11/09/18 08:04 Resp 19 11/09/18 09:09 BP 153/89 11/09/18 08:04 Pulse Ox 97 11/09/18 08:04 Intake & Output 11/08/18 11/09/18 11/09/18 18:59 06:59 18:59 Intake Total 1610 1850 620 Output Total 1550 1390 1100 Balance 60 460 -480 Intake: IV Fluids 410 ABX - VANCOMYCIN 255 NS (0.9%) 155 Oral 1200 1850 620 Output: Urine 1550 1390 1100 Other: # Bowel Movements 0 Assessment: []s/p debridement infected stump LLE POD #6 Plan: []Continue NWB Wound vac with change in OR Saturday 11/[address] Walker Continue IV antibiotics Lovenox 40 qd for DVT proph
[2018-11-09] MEDS ORDERED: Vancomycin Trough Check NOTE FOLLOW UP ONE (11:30)
[2018-11-09] MEDS: Enoxaparin(*) 40 MG/0.4 ML SYR SUBCUT SCH (12:09)
--- NOTE | 2018-11-09 17:00 | PN ---
Subjective Date of Service: 11/09/18 Interval History: Pt feels well, awaiting surgery on Sunday Objective Active Medications: Acetaminophen (Tylenol Tab*) 975 mg PO 0400,1200,2000 [facility] Last Admin: 11/09/18 12:11 Dose: 975 mg Al Hydrox/Mg Hydrox/Simethicone (Maalox Plus*) 30 ml PO Q6H PRN PRN Reason: INDIGESTION Amlodipine Besylate (Norvasc Tab*) 5 mg PO QAM [facility] Last Admin: 11/09/18 09:12 Dose: 5 mg Atorvastatin Calcium (Lipitor*) 5 mg PO QPM [facility]; Protocol Last Admin: 11/08/18 18:06 Dose: 5 mg Docusate Sodium (Colace Cap*) 100 mg PO BID [facility] Last Admin: 11/09/18 09:16 Dose: Not Given Enoxaparin Sodium (Lovenox(*)) 40 mg SUBCUT Q24H [facility] Last Admin: 11/09/18 12:09 Dose: 40 mg Fluoxetine HCl (Prozac Cap*) 40 mg PO QAM [facility] Last Admin: 11/09/18 09:10 Dose: 40 mg Gabapentin (Neurontin Cap(*)) 1,200 mg PO BID [facility] Last Admin: 11/09/18 09:09 Dose: 1,200 mg Vancomycin HCl 1,250 mg/ (Sodium Chloride) 250 mls @ 166.667 mls/hr IVPB Q12H [facility] Insulin Glargine (Lantus(*)) 30 units SUBCUT QPM [facility] Last Admin: 11/08/18 18:03 Dose: 30 units Insulin Human Lispro (Humalog*) 10 units SUBCUT TID [facility] Last Admin: 11/09/18 14:22 Dose: 10 unit Lisinopril (Prinivil Tab*) 10 mg PO QAM [facility] Last Admin: 11/09/18 09:09 Dose: 10 mg Magnesium Hydroxide (Milk Of Magnesia Liq*) 30 ml PO BID [facility] Last Admin: 11/09/18 09:16 Dose: Not Given Magnesium Hydroxide (Milk Of Magnesia Liq*) 30 ml PO Q6H PRN PRN Reason: constipation Morphine Sulfate (Morphine Vial*) 2 mg IV Q2H PRN PRN Reason: PAIN Ondansetron HCl (Zofran Inj*) 4 mg IV Q6H PRN PRN Reason: nausea Oxycodone HCl (Roxycodone Tab*) 5 mg PO Q4H PRN PRN Reason: PAIN - MILD TO MODERATE Oxycodone HCl (Roxycodone Tab*) 10 mg PO Q4H PRN PRN Reason: PAIN - MODERATE TO SEVERE Pharmacy Consult (Vancomycin Per Pharmacy*) 1 note FOLLOW UP . PRN PRN Reason: PER PROTOCOL Pharmacy Profile Note (Vancomycin Trough Check) 1 note FOLLOW UP ONCE ONE Stop: 11/11/18 05:31 Trazodone HCl (Desyrel Tab*) 25 mg PO BEDTIME PRN PRN Reason: insomnia Vital Signs - 8 hr 11/09/18 11/09/18 11/09/18 09:09 11:19 12:01 Temperature 97.3 F Pulse Rate 66 Respiratory 19 19 18 Rate Blood Pressure 141/63 (mmHg) O2 Sat by Pulse 99 Oximetry 11/09/18 11/09/18 15:44 15:52 Temperature 97.7 F Pulse Rate 67 Respiratory 15 Rate Blood Pressure 134/65 (mmHg) O2 Sat by Pulse 96 96 Oximetry Oxygen Devices in Use Now: None Appearance: 58 yo obese M in nAD, aAOx3 Eyes: No Scleral Icterus, PERRLA Ears/Nose/Mouth/Throat: NL Teeth, Lips, Gums, Mucous Membranes Moist Neck: NL Appearance and Movements; NL JVP, Trachea Midline Respiratory: Symmetrical Chest Expansion and Respiratory Effort, Clear to Auscultation Cardiovascular: NL Sounds; No Murmurs; No JVD Abdominal: NL Sounds; No Tenderness; No Distention Lymphatic: No Cervical Adenopathy Extremities: No Clubbing, Cyanosis, - - trace b/l pedal edema , L foot stump with Vac dressing in place Skin: No Rash or Ulcers, No Nodules or Sclerosis Neurological: Alert and Oriented x 3, NL Muscle Strength and Tone Result Diagrams: 11/09/18 06:01 11/09/18 06:01 Microbiology and Other Data: Microbiology 11/04/18 09:05 Anaerobic Culture - Preliminary Wound Skin and Soft Tissue MRSA/MSSA (PCR - Final Mrsa Negative S.aureus Negative Gram Stain - Final Wound Culture - Preliminary Corynebacterium Striatum Enterococcus Faecalis Assess/Plan/Problems-Billing Assessment: Pt is a 58yom with PMHx peripheral neuropathy, DM, HTN, PVD, obesity who presents for L foot ulcer debridement. - Patient Problems (1) Status post debridement Comment: -Pt is doing well , s/p VAC dressing placed on 11/06/18, planned to exchange Vac on Sunday -Management per ortho team -cont Vancomycin, ID following (recommended 4 weeks IV Vanc). - wound growing corynebacterium, enterococcus (2) Hyperlipidemia Comment: -Continue atorvastatin (3) Hyponatremia Comment: improved after IVF d/c'd (4) Postoperative anemia Comment: -acute post op -Continue to monitor (5) Diabetes Comment: -Continue home dose of Humalog 10 TID, cont lower Lantus dose -Continue FS AC, HS and monitor need for SS (6) HTN (hypertension) Comment: -controlled -Continue amlodipine, lisinopril (7) DVT prophylaxis Comment: -Per ortho team: Lovenox Status and Disposition: Medicine consult, will follow
[2018-11-09] MEDS: Vancomycin(*) 1,250 MG in NS 0.9% 250 ML* 250 ML IVPB SCH (17:47)
[2018-11-09] MEDS: Atorvastatin* 10 MG TAB PO SCH (17:56)
[2018-11-09] MEDS: Insulin GLARGINE(*) 1 UNITS UNIT SUBCUT SCH (17:57)
[2018-11-09] MEDS ORDERED: Loperamide CAP* 2 MG PO PRN (21:59)
[2018-11-10] MEDS: Acetaminophen TAB* 325 MG PO SCH ×3 (04:38→20:22)
[2018-11-10] MEDS: Vancomycin(*) 1,250 MG in NS 0.9% 250 ML* 250 ML IVPB SCH ×2 (05:31→17:54)
[2018-11-10] MEDS: Insulin LISPRO* 1 UNITS UNIT SUBCUT SCH ×3 (08:17→22:11)
[2018-11-10] MEDS: Gabapentin CAP(*) 400 MG PO SCH ×2 (08:17→22:12)
[2018-11-10] MEDS: FLUoxetine CAP* 20 MG PO SCH (08:18)
[2018-11-10] MEDS: Docusate CAP* 100 MG PO SCH ×2 (08:18→22:12)
[2018-11-10] MEDS: amLODIPine TAB* 5 MG PO SCH (08:19)
[2018-11-10] MEDS: Lisinopril TAB* 10 MG PO SCH (08:19)
[2018-11-10] MEDS: Magnesium Hydroxide LIQ* 30 ML UDC PO SCH ×2 (08:20→22:12)
--- NOTE | 2018-11-10 08:29 | PN ---
Subjective Date of Service: 11/10/18 Interval History: Pt had several bouts of diarrhea last night, denies abd pain Objective Active Medications: Acetaminophen (Tylenol Tab*) 975 mg PO 0400,1200,2000 [facility] Last Admin: 11/10/18 04:38 Dose: Not Given Al Hydrox/Mg Hydrox/Simethicone (Maalox Plus*) 30 ml PO Q6H PRN PRN Reason: INDIGESTION Amlodipine Besylate (Norvasc Tab*) 5 mg PO QAM [facility] Last Admin: 11/10/18 08:19 Dose: 5 mg Atorvastatin Calcium (Lipitor*) 5 mg PO QPM [facility]; Protocol Last Admin: 11/09/18 17:56 Dose: 5 mg Docusate Sodium (Colace Cap*) 100 mg PO BID [facility] Last Admin: 11/10/18 08:18 Dose: Not Given Enoxaparin Sodium (Lovenox(*)) 40 mg SUBCUT Q24H [facility] Last Admin: 11/09/18 12:09 Dose: 40 mg Fluoxetine [facility] ([facility]zac Cap*) [facility] Last Admin: 11/10/18 08:18 Dose: 40 mg Gabapentin (Neurontin Cap(*)) 1,200 mg PO BID [facility] Last Admin: 11/10/18 08:17 Dose: 1,200 mg Vancomycin HCl 1,250 mg/ (Sodium Chloride) 250 mls @ 166.667 mls/hr IVPB Q12H [facility] Last Admin: 11/10/18 05:31 Dose: 166.667 mls/hr Insulin Glargine (Lantus(*)) 30 units SUBCUT QPM [facility] Last Admin: 11/09/18 17:57 Dose: 30 units Insulin Human Lispro (Humalog*) 10 units SUBCUT TID [facility] Last Admin: 11/10/18 08:17 Dose: 10 unit Lisinopril (Prinivil Tab*) 10 mg PO QAM [facility] Last Admin: 11/10/18 08:19 Dose: 10 mg Loperamide HCl (Imodium Cap*) 2 mg PO .SEE DIRECTIONS PRN PRN Reason: DIARRHEA Last Admin: 11/10/18 00:47 Dose: 2 mg Magnesium Hydroxide (Milk Of Magnesia Liq*) 30 ml PO BID [facility] Last Admin: 11/10/18 08:20 Dose: Not Given Magnesium Hydroxide (Milk Of Magnesia Liq*) 30 ml PO Q6H PRN PRN Reason: constipation Morphine Sulfate (Morphine Vial*) 2 mg IV Q2H PRN PRN Reason: PAIN Ondansetron HCl (Zofran Inj*) 4 mg IV Q6H PRN PRN Reason: nausea Oxycodone HCl (Roxycodone Tab*) 5 mg PO Q4H PRN PRN Reason: PAIN - MILD TO MODERATE Oxycodone HCl (Roxycodone Tab*) 10 mg PO Q4H PRN PRN Reason: PAIN - MODERATE TO SEVERE Pharmacy Consult (Vancomycin Per Pharmacy*) 1 note FOLLOW UP . PRN PRN Reason: PER PROTOCOL Pharmacy Profile Note (Vancomycin Trough Check) 1 note FOLLOW UP ONCE ONE Stop: 11/11/18 05:31 Trazodone HCl (Desyrel Tab*) 25 mg PO BEDTIME PRN PRN Reason: insomnia Vital Signs - 8 hr 11/10/18 11/10/18 11/10/18 00:47 00:52 03:21 Temperature 97.4 F Pulse Rate 67 Respiratory 18 18 18 Rate Blood Pressure 139/62 (mmHg) O2 Sat by Pulse 94 Oximetry 11/10/18 11/10/18 11/10/18 04:40 07:41 08:17 Temperature 98.6 F 97.9 F Pulse Rate 71 72 Respiratory 16 16 18 Rate Blood Pressure 139/67 151/73 (mmHg) O2 Sat by Pulse 94 98 Oximetry Oxygen Devices in Use Now: None Appearance: 58 yo M in nAD, aAOx3 Eyes: No Scleral Icterus, PERRLA Ears/Nose/Mouth/Throat: NL Teeth, Lips, Gums, Mucous Membranes Moist Neck: NL Appearance and Movements; NL JVP, Trachea Midline Respiratory: Symmetrical Chest Expansion and Respiratory Effort, Clear to Auscultation Cardiovascular: NL Sounds; No Murmurs; No JVD, RRR Abdominal: NL Sounds; No Tenderness; No Distention, No Hepatosplenomegaly Lymphatic: No Cervical Adenopathy Extremities: No Clubbing, Cyanosis, - - b/l calf edema, L stump with vac dressing in place. R foot stump healed Skin: No Nodules or Sclerosis Neurological: Alert and Oriented x 3, NL Muscle Strength and Tone Result Diagrams: 11/09/18 06:01 11/09/18 06:01 Microbiology and Other Data: Microbiology 11/04/18 09:05 Anaerobic Culture - Preliminary Wound Skin and Soft Tissue MRSA/MSSA (PCR - Final Mrsa Negative S.aureus Negative Gram Stain - Final Wound Culture - Preliminary Corynebacterium Striatum Enterococcus Faecalis Assess/Plan/Problems-Billing Assessment: Pt is a 58yom with PMHx peripheral neuropathy, DM, HTN, PVD, obesity who presents for L foot ulcer debridement. - Patient Problems (1) Status post debridement Comment: -Pt is doing well , s/p VAC dressing placed on 11/06/18, planned to exchange Vac on Sunday -Management per ortho team -cont Vancomycin, ID following (recommended 4 weeks IV Vanc). - wound growing corynebacterium, enterococcus (2) Hyperlipidemia Comment: -Continue atorvastatin (3) Hyponatremia Comment: improved after IVF d/c'd (4) Postoperative anemia Comment: -acute post op -Continue to monitor (5) Diabetes Comment: -Continue home dose of Humalog 10 TID, cont lower Lantus dose -Continue FS AC, HS and monitor need for SS (6) HTN (hypertension) Comment: -controlled -Continue amlodipine, lisinopril (7) DVT prophylaxis Comment: -Per ortho team: Lovenox Status and Disposition: Medicine consult, will follow
--- NOTE | 2018-11-10 09:02 | PN ---
Progress Note - Progress Note Date of Service: 11/10/18 SOAP: Subjective: Patient seen at bedside. Patient without new ortho complaints. Denies any chest pain, SOB, nausea or vomiting. States that he did get up on the leg last night due to some mild diarrhea. Objective: []Left LE stump dressing has blood on DONALD. Dressing changed today. The wound vac appears to be in place. New DONALD wrap placed. Vital Signs Temp 97.9 F 11/10/18 07:41 Pulse 72 11/10/18 07:41 Resp 18 11/10/18 08:17 BP 151/73 11/10/18 07:41 Pulse Ox 98 11/10/18 07:41 Intake & Output 11/09/18 11/10/18 11/10/18 18:59 06:59 18:59 Intake Total 1370 700 295 Output Total 1475 2450 550 Balance -105 -1750 -255 Intake: IV Fluids 295 ABX - VANCOMYCIN 275 NS (0.9%) 20 Oral 1370 700 Output: Urine 1475 2450 550 Assessment: []s/p debridement infected stump LLE POD #7 Plan: []Continue NWB Wound vac with change in OR Saturday 11/[address] Walker Continue IV antibiotics Hold Lovenox 40 qd for DVT proph today due to OR tomorrow NPO after midnight tonight
[2018-11-10] MEDS: Lactobacillus Acidophilus* 1 TAB PO SCH ×2 (12:08→22:11)
[2018-11-10] MEDS: Atorvastatin* 10 MG TAB PO SCH (17:54)
[2018-11-10] MEDS: Insulin GLARGINE(*) 1 UNITS UNIT SUBCUT SCH (17:54)
[2018-11-11] MEDS: Acetaminophen TAB* 325 MG PO SCH ×3 (04:57→19:45)
[2018-11-11] MEDS ORDERED: Vancomycin Trough Check NOTE FOLLOW UP ONE (05:30)
[2018-11-11 05:38] LABS: Hematocrit 29 % (42-52); Hemoglobin 9.1 g/dl (14.0-18.0); Mean Corpuscular HGB Conc 31 g/dl (31-36); Mean Corpuscular Hemoglobin 22 pg (27-31); Mean Corpuscular Volume 72 fL (80-94); Mean Platelet Volume 6.4 fL (7.4-10.4); Platelet Count 436 10^3/ul (150-450); Red Blood Count 4.08 10^6/ul (4.00-5.40); Red Cell Distribution Width 20 % (10.5-15); White Blood Count 11.9 10^3/ul (3.5-10.8)
[2018-11-11 05:57] LABS: BUN/Creatinine Ratio 11.4 (8-20); Calcium 8.7 mg/dL (8.6-10.3); EGFR African American 88.4 (>60); EGFR Non-African American 73.1 (>60); Potassium 4.5 mmol/L (3.5-5.0)
[2018-11-11 06:08] LABS: Vancomycin Trough 19.7 mcg/mL
[2018-11-11 06:11] LABS: ABS Basophils 0.1 10^3/ul (0-0.2); ABS Eosinophils 0.6 10^3/ul (0-0.6); ABS Lymphocytes 1.1 10^3/ul (1.0-4.8); ABS Monocytes 1.1 10^3/ul (0-0.8); ABS Nucleated RBC 0 10^3/ul; Eosinophil % 4.8 %; Lymphocyte % 9.3 %; Nucleated Red Blood Cells % 0.1
[2018-11-11] MEDS: Vancomycin(*) 1,250 MG in NS 0.9% 250 ML* 250 ML IVPB SCH (06:13)
[2018-11-11 06:17] LABS: EGFR African American 88.4 (>60); EGFR Non-African American 73.1 (>60)
[2018-11-11] MEDS: Insulin LISPRO* 1 UNITS UNIT SUBCUT SCH ×3 (07:15→20:56)
[2018-11-11] MEDS: FLUoxetine CAP* 20 MG PO SCH (07:16)
[2018-11-11] MEDS: Docusate CAP* 100 MG PO SCH ×2 (07:16→19:46)
[2018-11-11] MEDS: Lactobacillus Acidophilus* 1 TAB PO SCH ×2 (07:16→20:56)
[2018-11-11] MEDS: Magnesium Hydroxide LIQ* 30 ML UDC PO SCH ×2 (07:16→19:46)
[2018-11-11] MEDS: Gabapentin CAP(*) 400 MG PO SCH ×2 (07:16→20:56)
[2018-11-11] MEDS: Lisinopril TAB* 10 MG PO SCH (07:16)
[2018-11-11] MEDS: amLODIPine TAB* 5 MG PO SCH (07:16)
[2018-11-11] MEDS ORDERED: Buffered Lidocaine 1% SYRIN* 1 ML/SYRINGE INTRADERM ONE (08:21)
[2018-11-11] MEDS ORDERED: Lactated Ringers 1000 ML Bag* 1,000 ML IV SCH (09:00)
[2018-11-11] MEDS ORDERED: Bupivacaine 0.5%* 50 ML VIAL ONE (10:05)
[2018-11-11] MEDS ORDERED: Lidocaine 2% PF* 10 ML AMP ONE (10:06)
[2018-11-11] MEDS ORDERED: Lidocaine 2% PF * 5 ML VIAL ONE (10:11)
[2018-11-11] MEDS ORDERED: Midazolam* 1 MG/ML 2 ML VIAL (2 MG) ONE (10:11)
[2018-11-11] MEDS ORDERED: Propofol* 10 MG/ML 20 ML BTL ONE (10:11)
[2018-11-11] MEDS ORDERED: fentaNYL* 50 MCG/ML 2 ML VIAL (100 MCG VIAL) ONE (10:11)
[2018-11-11] MEDS ORDERED: fentaNYL* 50 MCG/ML 2 ML VIAL (100 MCG VIAL) IV PRN (10:38)
[2018-11-11] MEDS ORDERED: Acetaminophen TAB* 325 MG PO PRN (10:38)
[2018-11-11] MEDS ORDERED: DiMENhydriNATE IV* 50 MG/ML VIAL IV PUSH PRN (10:38)
[2018-11-11] MEDS ORDERED: Naloxone* 0.4 MG/ML 1 ML VIAL IV PRN (10:38)
[2018-11-11] MEDS ORDERED: PROCHLORPERAZINE INJ 5 MG/ML 2 ML VIAL IV PRN (10:38)
[2018-11-11] MEDS: Enoxaparin(*) 40 MG/0.4 ML SYR SUBCUT SCH (13:09)
[2018-11-11] MEDS: Atorvastatin* 10 MG TAB PO SCH (17:42)
[2018-11-11] MEDS: Insulin GLARGINE(*) 1 UNITS UNIT SUBCUT SCH (17:42)
--- NOTE | 2018-11-11 18:46 | PN ---
Subjective Date of Service: 11/11/18 Interval History: afebrile, no acute overnight events. without complaint other than some phantom pain. denies chest pain, abdominal pain, f/c/n/v, sob, cough, JOSEPH wbc slightly up to 11.9 last BM was yesterday. wound vac exchanged today. Objective Active Medications: Acetaminophen (Tylenol Tab*) 975 mg PO 0400,1200,2000 COUNT INCLUDES THE [facility] Last Admin: 11/11/18 13:10 Dose: 975 mg Al Hydrox/Mg Hydrox/Simethicone (Maalox Plus*) 30 ml PO Q6H PRN PRN Reason: INDIGESTION Amlodipine Besylate (Norvasc Tab*) 5 mg PO QAM COUNT INCLUDES THE [facility] Last Admin: 11/11/18 07:16 Dose: Not Given Atorvastatin Calcium (Lipitor*) 5 mg PO QPM COUNT INCLUDES THE [facility]; Protocol Last Admin: 11/11/18 17:42 Dose: 5 mg Docusate Sodium (Colace Cap*) 100 mg PO BID COUNT INCLUDES THE [facility] Last Admin: 11/11/18 07:16 Dose: Not Given Enoxaparin Sodium (Lovenox(*)) 40 mg SUBCUT DAILY COUNT INCLUDES THE [facility] Last Admin: 11/11/18 13:09 Dose: 40 mg Fluoxetine HCl (Prozac Cap*) 40 mg PO QAM COUNT INCLUDES THE [facility] Last Admin: 11/11/18 07:16 Dose: Not Given Gabapentin (Neurontin Cap(*)) 1,200 mg PO BID COUNT INCLUDES THE [facility] Last Admin: 11/11/18 07:16 Dose: Not Given Lactated Ringer's (Lactated Ringers 1000 Ml Bag*) 1,000 mls @ 125 mls/hr IV PER RATE COUNT INCLUDES THE [facility] Vancomycin HCl 1,000 mg/ (Sodium Chloride) 250 mls @ 166.667 mls/hr IVPB Q12HR COUNT INCLUDES THE [facility] Insulin Glargine (Lantus(*)) 30 units SUBCUT QPM COUNT INCLUDES THE [facility] Last Admin: 11/11/18 17:42 Dose: 30 units Insulin Human Lispro (Humalog*) 10 units SUBCUT TID COUNT INCLUDES THE [facility] Last Admin: 11/11/18 13:09 Dose: 10 unit Lactobacillus Rhamnosus (Lactobacillus Acidophilus*) 1 tab PO BID COUNT INCLUDES THE [facility] Last Admin: 11/11/18 07:16 Dose: Not Given Lisinopril (Prinivil Tab*) 10 mg PO QAM COUNT INCLUDES THE [facility] Last Admin: 11/11/18 07:16 Dose: Not Given Loperamide HCl (Imodium Cap*) 2 mg PO .SEE DIRECTIONS PRN PRN Reason: DIARRHEA Last Admin: 11/10/18 00:47 Dose: 2 mg Magnesium Hydroxide (Milk Of Magnesia Liq*) 30 ml PO BID BERNADETTE Last Admin: 11/11/18 07:16 Dose: Not Given Magnesium Hydroxide (Milk Of Magnesia Liq*) 30 ml PO Q6H PRN PRN Reason: constipation Ondansetron HCl (Zofran Inj*) 4 mg IV Q6H PRN PRN Reason: nausea Oxycodone HCl (Roxycodone Tab*) 5 mg PO Q4H PRN PRN Reason: PAIN - MILD TO MODERATE Oxycodone HCl (Roxycodone Tab*) 10 mg PO Q4H PRN PRN Reason: PAIN - MODERATE TO SEVERE Pharmacy Consult (Vancomycin Per Pharmacy*) 1 note FOLLOW UP . PRN PRN Reason: PER PROTOCOL Pharmacy Profile Note (Vancomycin Trough Check) 1 note FOLLOW UP ONCE ONE Stop: 11/13/18 09:31 Trazodone HCl (Desyrel Tab*) 25 mg PO BEDTIME PRN PRN Reason: insomnia Vital Signs - 8 hr 11/11/18 11/11/18 11/11/18 10:57 10:59 11:00 Temperature 98.1 F Pulse Rate 72 73 Respiratory Rate Blood Pressure 127/77 144/91 (mmHg) O2 Sat by Pulse 98 96 Oximetry 11/11/18 11/11/18 11/11/18 11:02 11:05 11:10 Temperature Pulse Rate 73 70 70 Respiratory Rate Blood Pressure 132/67 123/71 (mmHg) O2 Sat by Pulse 96 96 94 Oximetry 11/11/18 11/11/18 11/11/18 11:20 11:52 12:55 Temperature 97.7 F 97.8 F Pulse Rate 72 77 71 Respiratory 18 16 Rate Blood Pressure 154/66 178/106 137/67 (mmHg) O2 Sat by Pulse 95 96 97 Oximetry 11/11/18 11/11/18 11/11/18 13:51 15:47 15:58 Temperature 97.8 F 98.4 F Pulse Rate 75 68 Respiratory 16 17 Rate Blood Pressure 151/80 137/73 (mmHg) O2 Sat by Pulse 97 97 98 Oximetry Oxygen Devices in Use Now: None Appearance: NAD Eyes: No Scleral Icterus Ears/Nose/Mouth/Throat: NL Teeth, Lips, Gums Neck: NL Appearance and Movements; NL JVP, Trachea Midline Respiratory: Symmetrical Chest Expansion and Respiratory Effort, Clear to Auscultation Cardiovascular: NL Sounds; No Murmurs; No JVD, RRR Abdominal: NL Sounds; No Tenderness; No Distention, No Hepatosplenomegaly, - - obese Extremities: No Edema, - - s/p TMA right foot, ACEI bandage and wound vacc covers left foot Skin: No Rash or Ulcers Neurological: Alert and Oriented x 3 Nutrition: Taking PO's Result Diagrams: 11/11/18 05:25 11/11/18 05:25 Additional Lab and Data: Laboratory Results - last 24 hr 11/11/18 11/11/18 11/11/18 05:25 05:25 05:25 WBC 11.9 H RBC 4.08 Hgb 9.1 L Hct 29 L MCV 72 L MCH 22 L MCHC 31 RDW 20 H Plt Count 436 MPV 6.4 L Neut % (Auto) 75.8 Lymph % (Auto) 9.3 Stewart % (Auto) 9.2 Eos % (Auto) 4.8 Baso % (Auto) 0.9 Absolute Neuts (auto) 9.0 H Absolute Lymphs (auto) 1.1 Absolute Monos (auto) 1.1 H Absolute Eos (auto) 0.6 Absolute Basos (auto) 0.1 Absolute Nucleated RBC 0 Nucleated RBC % 0.1 Sodium 134 L Potassium 4.5 Chloride 100 L Carbon Dioxide 27 Anion Gap 7 BUN 13 12 Creatinine 1.05 1.05 Est GFR ( Amer) 88.4 88.4 Est GFR (Non-Af Amer) 73.1 73.1 BUN/Creatinine Ratio 11.4 Glucose 123 H POC Glucose (mg/dL) Calcium 8.7 Vancomycin Trough 19.7 11/11/18 11/11/18 11/11/18 09:48 12:52 17:37 WBC RBC Hgb Hct MCV MCH MCHC RDW Plt Count MPV Neut % (Auto) Lymph % (Auto) Stewart % (Auto) Eos % (Auto) Baso % (Auto) Absolute Neuts (auto) Absolute Lymphs (auto) Absolute Monos (auto) Absolute Eos (auto) Absolute Basos (auto) Absolute Nucleated RBC Nucleated RBC % Sodium Potassium Chloride Carbon Dioxide Anion Gap BUN Creatinine Est GFR ( Amer) Est GFR (Non-Af Amer) BUN/Creatinine Ratio Glucose POC Glucose (mg/dL) 130 H 112 H 114 H Calcium Vancomycin Trough Microbiology and Other Data: Microbiology 11/04/18 09:05 Anaerobic Culture - Preliminary Wound Skin and Soft Tissue MRSA/MSSA (PCR - Final Mrsa Negative S.aureus Negative Gram Stain - Final Wound Culture - Preliminary Corynebacterium Striatum Enterococcus Faecalis Assess/Plan/Problems-Billing Assessment: 58 yo male with PMHx peripheral neuropathy, IDDM, right TMA, HTN, PVD, obesity who presents for L foot ulcer debridement. Wound with Enterococcus Faecalis and Cornybacterium. Planned 4 week IV vancomycin. Wound vacc. - Patient Problems (1) Status post debridement Current Visit: Yes Status: Acute Code(s): Z98.890 - OTHER SPECIFIED POSTPROCEDURAL STATES SNOMED Code(s): 401985601 Comment: -Pt is doing well , s/p VAC on 11/06/18, and exchanged today 11/11. Management per ortho team -cont Vancomycin, ID following (recommended 4 weeks IV Vanc). - wound growing corynebacterium, enterococcus (2) Diabetes Current Visit: No Status: Acute Code(s): E11.9 - TYPE 2 DIABETES MELLITUS WITHOUT COMPLICATIONS SNOMED Code(s): 11937770 Comment: -Continue home dose of Humalog 10 TID, cont 30U Lantus dose (home was 58) -Continue FS AC, HS and monitor need for SS (3) HTN (hypertension) Current Visit: No Status: Chronic Code(s): I10 - ESSENTIAL (PRIMARY) HYPERTENSION SNOMED Code(s): 37667761 Comment: -controlled -Continue amlodipine 5mg, lisinopril 10mg (4) PVD (peripheral vascular disease) Current Visit: No Status: Chronic Code(s): I73.9 - PERIPHERAL VASCULAR DISEASE, UNSPECIFIED SNOMED Code(s): 375796266 Comment: - With associated neuropathy (5) DVT prophylaxis Current Visit: No Status: Acute Code(s): LUP6227 - SNOMED Code(s): 405876740 Comment: -Per ortho team: Lovenox (6) Hyperlipidemia Current Visit: Yes Status: Acute Code(s): E78.5 - HYPERLIPIDEMIA, UNSPECIFIED SNOMED Code(s): 43285346 Comment: -Continue atorvastatin Status and Disposition: Medicine consult, will follow
[2018-11-11] MEDS: Vancomycin(*) 1,000 MG in NS 0.9% 250 ML* 250 ML IVPB SCH (20:55)
--- NOTE | 2018-11-11 21:43 | OP ---
DATE OF OPERATION: 11/11/18 - ROOM #332 DATE OF : 64 ATTENDING SURGEON: Rizwan Walker MD [employer] MACHINE OPERATOR: Tanvi Petersen PA-C PRE-OP DIAGNOSES: Deep ulcer, left midfoot; diabetic neuropathy. POST-OP DIAGNOSES: Deep ulcer, left midfoot; diabetic neuropathy. OPERATIVE PROCEDURE: Irrigation debridement and VAC dressing, left midfoot. DESCRIPTION OF PROCEDURE: The patient was taken to the operating room, where the previous VAC was removed from his heel. We noted that the wound was clean. There was no purulence. We used 3 L pulsatile lavage to clean the wound. We then replaced with a deep VAC dressing, sealed appropriately, and placed on continuous suction. A dry dressing was applied throughout. The patient then was transported back to his hospital bed and we will have a repeat VAC dressing change ordered in the near future. [id number]/[facility] #: [id number] MTDD
[2018-11-12] MEDS: Acetaminophen TAB* 325 MG PO SCH ×3 (05:23→21:56)
[2018-11-12] MEDS ORDERED: LORazepam INJ* 2 MG/ML 1 ML VIAL ONE (08:36)
--- NOTE | 2018-11-12 08:49 | PN ---
Progress Note - Progress Note Date of Service: 11/12/18 SOAP: Subjective: resting comfortably, complaints of mild phantom pain well controlled with Gabapentin Objective: Vital Signs Temp Pulse Resp BP Pulse Ox 98.7 F 76 16 144/74 97 11/12/18 07:46 11/12/18 07:46 11/12/18 07:46 11/12/18 07:46 11/12/18 07:46 Laboratory Last Values WBC 11.9 10^3/ul (3.5-10.8) H 11/11/18 05:25 RBC 4.08 10^6/ul (4.00-5.40) 11/11/18 05:25 Hgb 9.1 g/dl (14.0-18.0) L 11/11/18 05:25 Hct 29 % (42-52) L 11/11/18 05:25 MCV 72 fL (80-94) L 11/11/18 05:25 MCH 22 pg (27-31) L 11/11/18 05:25 MCHC 31 g/dl (31-36) 11/11/18 05:25 RDW 20 % (10.5-15) H 11/11/18 05:25 Plt Count 436 10^3/ul (150-450) 11/11/18 05:25 MPV 6.4 fL (7.4-10.4) L 11/11/18 05:25 Neut % (Auto) 75.8 % 11/11/18 05:25 Lymph % (Auto) 9.3 % 11/11/18 05:25 [place] % (Auto) 9.2 % 11/11/18 05:25 Eos % (Auto) 4.8 % 11/11/18 05:25 Baso % (Auto) 0.9 % 11/11/18 05:25 Absolute Neuts (auto) 9.0 10^3/ul (1.5-7.7) H 11/11/18 05:25 Absolute Lymphs (auto) 1.1 10^3/ul (1.0-4.8) 11/11/18 05:25 Absolute Monos (auto) 1.1 10^3/ul (0-0.8) H 11/11/18 05:25 Absolute Eos (auto) 0.6 10^3/ul (0-0.6) 11/11/18 05:25 Absolute Basos (auto) 0.1 10^3/ul (0-0.2) 11/11/18 05:25 Absolute Nucleated RBC 0 10^3/ul 11/11/18 05:25 Nucleated RBC % 0.1 11/11/18 05:25 Sodium 134 mmol/L (135-145) L 11/11/18 05:25 Potassium 4.5 mmol/L (3.5-5.0) 11/11/18 05:25 Chloride 100 mmol/L (101-111) L 11/11/18 05:25 Carbon Dioxide 27 mmol/L (22-32) 11/11/18 05:25 Anion Gap 7 mmol/L (2-11) 11/11/18 05:25 BUN 13 mg/dL (6-24) 11/11/18 05:25 Creatinine 1.05 mg/dL (0.67-1.17) 11/11/18 05:25 Est GFR ( Amer) 88.4 (>60) 11/11/18 05:25 Est GFR (Non-Af Amer) 73.1 (>60) 11/11/18 05:25 BUN/Creatinine Ratio 11.4 (8-20) 11/11/18 05:25 Glucose 123 mg/dL (70-100) H 11/11/18 05:25 POC Glucose (mg/dL) 120 mg/dL (70-100) H 11/12/18 07:33 Calcium 8.7 mg/dL (8.6-10.3) 11/11/18 05:25 Vancomycin Trough 19.7 mcg/mL 11/11/18 05:25 incision: c/d; vac in place Assessment: s/p I&D left foot with wound vac change Plan: 1) Lovenox for DVT prophylaxis 2) continue IV Abx per ID- will require 4 weeks 3) NWB LLE
[2018-11-12] MEDS: Lisinopril TAB* 10 MG PO SCH (09:44)
[2018-11-12] MEDS: Lactobacillus Acidophilus* 1 TAB PO SCH ×2 (09:44→21:57)
[2018-11-12] MEDS: Gabapentin CAP(*) 400 MG PO SCH ×2 (09:44→21:57)
[2018-11-12] MEDS: FLUoxetine CAP* 20 MG PO SCH (09:44)
[2018-11-12] MEDS: amLODIPine TAB* 5 MG PO SCH (09:44)
[2018-11-12] MEDS: Docusate CAP* 100 MG PO SCH ×2 (09:45→21:57)
[2018-11-12] MEDS: Magnesium Hydroxide LIQ* 30 ML UDC PO SCH ×2 (09:45→21:58)
[2018-11-12] MEDS: Insulin LISPRO* 1 UNITS UNIT SUBCUT SCH ×3 (09:46→21:58)
[2018-11-12] MEDS: Vancomycin(*) 1,000 MG in NS 0.9% 250 ML* 250 ML IVPB SCH ×2 (09:47→21:52)
[2018-11-12] MEDS: Enoxaparin(*) 40 MG/0.4 ML SYR SUBCUT SCH (09:47)
--- NOTE | 2018-11-12 09:57 | PN ---
Subjective Date of Service: 11/12/18 Interval History: Pt s/p drain replacement D1. He states that he feels well and has no pain from the procedure, due to neuropathy. He does admit to phantom pain on occasion, which he states is well controlled with tylenol and gabapentin. Pt is NWB L leg , which he has been in compliance with. He states that he is eating well. He denies CP, SOB, cough, fever, abd pain, n/v/d, LE swelling or calf pain. Objective Active Medications: Acetaminophen (Tylenol Tab*) 975 mg PO 0400,1200,2000 BERNADETTE Al Hydrox/Mg Hydrox/Simethicone (Maalox Plus*) 30 ml PO Q6H PRN Amlodipine Besylate (Norvasc Tab*) 5 mg PO QAM BERNADETTE Atorvastatin Calcium (Lipitor*) 5 mg PO QPM BERNADETTE; Protocol Docusate Sodium (Colace Cap*) 100 mg PO BID BERNADETTE Enoxaparin Sodium (Lovenox(*)) 40 mg SUBCUT DAILY BERNADETTE Fluoxetine HCl (Prozac Cap*) 40 mg PO QAM BERNADETTE Gabapentin (Neurontin Cap(*)) 1,200 mg PO BID BERNADETTE Lactated Ringer's (Lactated Ringers 1000 Ml Bag*) 1,000 mls @ 125 mls/hr IV PER RATE BERNADETTE Vancomycin HCl 1,000 mg/ (Sodium Chloride) 250 mls @ 166.667 mls/hr IVPB Q12HR BERNADETTE Insulin Glargine (Lantus(*)) 30 units SUBCUT QPM BERNADETTE Insulin Human Lispro (Humalog*) 10 units SUBCUT TID BERNADETTE Lactobacillus Rhamnosus (Lactobacillus Acidophilus*) 1 tab PO BID BERNADETTE Lisinopril (Prinivil Tab*) 10 mg PO QAM BERNADETTE Loperamide HCl (Imodium Cap*) 2 mg PO .SEE DIRECTIONS PRN Magnesium Hydroxide (Milk Of Magnesia Liq*) 30 ml PO BID BERNADETTE Magnesium Hydroxide (Milk Of Magnesia Liq*) 30 ml PO Q6H PRN Ondansetron HCl (Zofran Inj*) 4 mg IV Q6H PRN Oxycodone HCl (Roxycodone Tab*) 5 mg PO Q4H PRN Oxycodone HCl (Roxycodone Tab*) 10 mg PO Q4H PRN Pharmacy Consult (Vancomycin Per Pharmacy*) 1 note FOLLOW UP . PRN Pharmacy Profile Note (Vancomycin Trough Check) 1 note FOLLOW UP ONCE ONE Trazodone HCl (Desyrel Tab*) 25 mg PO BEDTIME PRN Vital Signs: Temp Pulse Resp BP Pulse Ox 98.7 F 76 18 144/74 97 11/12/18 07:46 11/12/18 07:46 11/12/18 09:44 11/12/18 07:46 11/12/18 07:46 Oxygen Devices in Use Now: None Appearance: Pt is 58yo obese white male who is sitting up in bed. He appears comfortable, well, and in no acute distress. Eyes: No Scleral Icterus, PERRLA Ears/Nose/Mouth/Throat: NL Teeth, Lips, Gums, Clear Oropharnyx, Mucous Membranes Moist Neck: NL Appearance and Movements; NL JVP, Trachea Midline Respiratory: Symmetrical Chest Expansion and Respiratory Effort, Clear to Auscultation Cardiovascular: NL Sounds; No Murmurs; No JVD, RRR, No Edema Abdominal: NL Sounds; No Tenderness; No Distention - Unable to palpate for HSM, due to abdominal obesity Extremities: No Clubbing, Cyanosis, - - Trace edema RLE; LLE with drain and bandaging, which is CDI. LE with partial amputations b/l. Result Diagrams: 11/11/18 05:25 11/11/18 05:25 Additional Lab and Data: Laboratory Results - last 24 hr 11/11/18 11/11/18 11/11/18 05:25 05:25 05:25 WBC 11.9 H RBC 4.08 Hgb 9.1 L Hct 29 L MCV 72 L MCH 22 L MCHC 31 RDW 20 H Plt Count 436 MPV 6.4 L Neut % (Auto) 75.8 Lymph % (Auto) 9.3 Darke % (Auto) 9.2 Eos % (Auto) 4.8 Baso % (Auto) 0.9 Absolute Neuts (auto) 9.0 H Absolute Lymphs (auto) 1.1 Absolute Monos (auto) 1.1 H Absolute Eos (auto) 0.6 Absolute Basos (auto) 0.1 Absolute Nucleated RBC 0 Nucleated RBC % 0.1 Sodium 134 L Potassium 4.5 Chloride 100 L Carbon Dioxide 27 Anion Gap 7 BUN 13 12 Creatinine 1.05 1.05 Est GFR ( Amer) 88.4 88.4 Est GFR (Non-Af Amer) 73.1 73.1 BUN/Creatinine Ratio 11.4 Glucose 123 H POC Glucose (mg/dL) Calcium 8.7 Vancomycin Trough 19.7 11/11/18 11/11/18 11/11/18 09:48 12:52 17:37 WBC RBC Hgb Hct MCV MCH MCHC RDW Plt Count MPV Neut % (Auto) Lymph % (Auto) Darke % (Auto) Eos % (Auto) Baso % (Auto) Absolute Neuts (auto) Absolute Lymphs (auto) Absolute Monos (auto) Absolute Eos (auto) Absolute Basos (auto) Absolute Nucleated RBC Nucleated RBC % Sodium Potassium Chloride Carbon Dioxide Anion Gap BUN Creatinine Est GFR ( Amer) Est GFR (Non-Af Amer) BUN/Creatinine Ratio Glucose POC Glucose (mg/dL) 130 H 112 H 114 H Calcium Vancomycin Trough Microbiology and Other Data: Microbiology 11/04/18 09:05 Anaerobic Culture - Preliminary Wound Skin and Soft Tissue MRSA/MSSA (PCR - Final Mrsa Negative S.aureus Negative Gram Stain - Final Wound Culture - Preliminary Corynebacterium Striatum Enterococcus Faecalis Assess/Plan/Problems-Billing Assessment: 58 yo male with PMHx peripheral neuropathy, IDDM, right TMA, HTN, PVD, obesity who presents for L foot ulcer debridement. Wound with Enterococcus Faecalis and Cornybacterium. Planned 4 week IV vancomycin, wound vacc. - Patient Problems (1) Status post debridement Comment: -Pt is doing well , s/p VAC on 11/06/18, and exchanged today 11/11. Management per ortho team -Cont Vancomycin, ID following (recommended 4 weeks IV Vanc). -Wound growing corynebacterium, enterococcus (2) Diabetes Comment: -FS 114-152 in last 24h -Continue home dose of Humalog 10 TID, cont 30U Lantus dose (home was 58) -Continue FS AC, HS and monitor need for SS (3) HTN (hypertension) Comment: -Controlled -Continue amlodipine 5mg, lisinopril 10mg (4) Postoperative anemia Comment: -Acute post op -Continue to monitor (5) Hyperlipidemia Comment: -Continue atorvastatin (6) DVT prophylaxis Comment: -Per ortho team: Natalie (7) Full code status Comment: Status and Disposition: Medicine consult, will follow
[2018-11-12] MEDS: Insulin GLARGINE(*) 1 UNITS UNIT SUBCUT SCH (18:23)
[2018-11-12] MEDS: Atorvastatin* 10 MG TAB PO SCH (18:23)
[2018-11-13 04:58] LABS: Hematocrit 29 % (42-52); Hemoglobin 8.9 g/dl (14.0-18.0); Mean Corpuscular HGB Conc 31 g/dl (31-36); Mean Corpuscular Hemoglobin 23 pg (27-31); Mean Corpuscular Volume 72 fL (80-94); Red Blood Count 3.98 10^6/ul (4.00-5.40); Red Cell Distribution Width 20 % (10.5-15); White Blood Count 13.2 10^3/ul (3.5-10.8)
[2018-11-13 04:59] LABS: Calcium 8.3 mg/dL (8.6-10.3); Potassium 4.4 mmol/L (3.5-5.0)
[2018-11-13] MEDS: Acetaminophen TAB* 325 MG PO SCH (05:02)
[2018-11-13 05:05] LABS: BUN/Creatinine Ratio 14.5 (8-20); EGFR Non-African American 64.5 (>60)
[2018-11-13 05:15] LABS: ABS Basophils 0.1 10^3/ul (0-0.2); ABS Eosinophils 0.6 10^3/ul (0-0.6); ABS Lymphocytes 1.5 10^3/ul (1.0-4.8); ABS Monocytes 1.4 10^3/ul (0-0.8); ABS Neutrophils 9.6 10^3/ul (1.5-7.7); ABS Nucleated RBC 0 10^3/ul; Eosinophil % 4.3 %; Lymphocyte % 11.6 %; Mean Platelet Volume 6.6 fL (7.4-10.4); Nucleated Red Blood Cells % 0; Platelet Count 447 10^3/ul (150-450)
[2018-11-13 05:16] LABS: Microcytosis 2+; Polychromasia 1+
[2018-11-13 08:07] VITALS: BP 140/75
[2018-11-13] MEDS ORDERED: Vancomycin Trough Check NOTE FOLLOW UP ONE (08:30)
[2018-11-13] MEDS: Vancomycin(*) 1,000 MG in NS 0.9% 250 ML* 250 ML IVPB SCH (09:58)
[2018-11-13] MEDS: Lactobacillus Acidophilus* 1 TAB PO SCH (09:59)
[2018-11-13] MEDS: Enoxaparin(*) 40 MG/0.4 ML SYR SUBCUT SCH (09:59)
[2018-11-13] MEDS: Gabapentin CAP(*) 400 MG PO SCH (09:59)
[2018-11-13] MEDS: Insulin LISPRO* 1 UNITS UNIT SUBCUT SCH (10:00)
[2018-11-13] MEDS: Lisinopril TAB* 10 MG PO SCH (10:00)
[2018-11-13] MEDS: FLUoxetine CAP* 20 MG PO SCH (10:00)
[2018-11-13] MEDS: amLODIPine TAB* 5 MG PO SCH (10:03)
[2018-11-13] MEDS: Docusate CAP* 100 MG PO SCH (10:48)
[2018-11-13] MEDS: Magnesium Hydroxide LIQ* 30 ML UDC PO SCH (10:48)
--- NOTE | 2018-11-13 20:23 | DS ---
DISCHARGE SUMMARY and ADMISSION H&P for swing DATE OF ADMISSION TO [facility]: 11/03/18 DATE OF DISCHARGE: 11/13/18 DATE OF ADMISSION TO SWING [id number]: 11/13/18 PROVIDER: MIKY Red. DISPOSITION: Discharged to [facility] Swing. ATTENDING PHYSICIAN: Dr. Jesus Manuel Ibrahim * (dictated by MIKY Red). PRIMARY CARE PHYSICIAN: Daniel Greene MD. ORTHOPEDIST: Rizwan Walker MD. PRIMARY DIAGNOSIS: Osteomyelitis, left midfoot. SECONDARY DIAGNOSES: 1. Diabetes type 2. 2. Hypertension. 3. Hyperlipidemia. 4. Obesity. 5. Anemia. CONSULTATIONS WHILE IN THE HOSPITAL: Dr. Hernandes with Infectious Disease. PROCEDURES WHILE IN THE HOSPITAL: 11/04/18 Debridement of left midfoot with Dr. Rizwan Walker 11/06/18 Debridement of left midfoot with Dr. Teddy Canales. STUDIES WHILE IN THE HOSPITAL: None. DISCHARGE MEDICATIONS: 1. Acetaminophen 975 mg p.o. t.i.d. 2. Maalox Plus 30 mL p.o. q.6 hours p.r.n. for indigestion. 3. Amlodipine 5 mg p.o. daily. 4. Atorvastatin 5 mg p.o. daily. 5. D5W syringe 50 mL giving 12.5 g IV push p.r.n. for fasting sugar less than 60. 6. Colace 100 mg p.o. b.i.d. 7. Lovenox 40 mg subcu daily. 8. Fluoxetine 40 mg p.o. daily. 9. Gabapentin 40 mg p.o. b.i.d. 10. Lantus 30 units subcu q.p.m. 11. Humalog 10 units subcu t.i.d. 12. Lactobacillus acidophilus 1 tab p.o. b.i.d. 13. Lisinopril 10 mg daily. 14. Imodium 2 mg p.o. p.r.n. for diarrhea. 15. Milk of magnesia 30 mL p.o. q.6 hours p.r.n. for constipation. 16. Zofran 4 mg IV q.6 hours p.r.n. for nausea. 17. Oxycodone 5 mg p.o. q.4 hours p.r.n. for pain, [id number]. 18. Oxycodone 10 mg p.o. q.4 hours p.r.n. pain, [id number]. 19. Trazodone 25 mg p.o. at bedtime p.r.n. insomnia. 20. Vancomycin 1000 mg in sodium chloride dosing 250 mL at 166.66 mL/h q.12. HISTORY OF PRESENT ILLNESS: Mr. Maldonado is a 58-year-old white male with past medical history of insulin-dependent diabetes type 2, hypertension, hyperlipidemia and obesity, who was admitted to the hospital on 11/03/18 after being seen by the orthopedist in the outpatient clinic for chronic left foot ulcer. He was admitted with plans of debridement, which occurred on 11/04/18, which found abscess and osteomyelitis of left midfoot. Ostectomy and packing was also performed. Vancomycin started at this time. Infectious Disease was consulted for evaluation as well as the hospitalist service. During his hospitalization, his hypertension was controlled except for mild increase of systolic pressure to 153 on 11/05/18. A second debridement was performed on 11/06/18 and the wound VAC was placed. This wound VAC was replaced on 11/11/18. He has been working with Physical Therapy and Occupational Therapy. His pain has been well controlled. He has baseline phantom limb pain, which has been well controlled with gabapentin. During his stay, his wound was found to be Corynebacterium striatum positive and Enterococcus faecalis positive. For treatment of his diabetes type 2, his home Humalog dose was continued and during his stay, his home Lantus dose was lowered to 30 units. His blood glucoses were high during his stay, in the range from 112 to 219. For treatment of his hypertension, his home amlodipine and lisinopril were continued, and as previously mentioned, hypertension was primarily well controlled aside from mild elevation on . During his stay, his hemoglobin has been low. Hemoglobin ranging from 8.9 to 9.1 during this stay. During a previous stay on 08/05/18, the patient was found to have a hemoglobin of 12.4. This appears to be around his baseline. Iron studies were last performed in December 2017 at this facility. Labs at this time are consistent with anemia of chronic disease. Blood loss during his most recent debridement was minimal. Today, Mr. Maldonado has no complaints and states his pain is well controlled. Mr. Maldonado is stable for discharge to [facility] Swing Bed on 11/13/18. Vital signs today: Temperature 98.6 degrees Fahrenheit, pulse 73, respirations 16, O2 sats 96, blood pressure 140/75. 10 point review of systems was completed and pertinent positives/negatives are in the HPI. PHYSICAL EXAM: General: morbidly obese male, appearing stated age, appearing in NAD Head: normocephalic, atraumatic Eyes: PERRL, conjunctivae without scleral icterus ENT: mucous membranes moist Respiratory: symmetrical chest expansion; auscultation without adventitious lung sounds Cardiovascular: regular rate and rhythm, no murmurs Extremities: right TMA; left foot amputation with wound VAC in place; no cyanosis; trace non-pitting edema Neuro: Alert and oriented x 3; no focal deficits; moves all extremities equally Psych: pleasant and cooperative DISCHARGE PLAN/ASSESSMENT PLAN: Mr. Maldonado is discharged to [facility] Swing Bed. He should have physical therapy and occupational therapy evaluation and treatment. Activity: Nonweightbearing left leg. He should be on a carb-consistent diet. He will continue to be followed by Orthopedics and Infectious Disease. In regards to his osteomyelitis, vancomycin is to be continued for 4 weeks as per Infectious Disease. A PICC or midline will need to be placed. For hypertension , continue home amlodipine and lisinopril. For diabetes type 2, continue Humalog 10 units t.i.d. and Lantus 30 units. In regards to pain control, he should be continued on his current regimen of Tylenol and oxycodone as needed. He will be continued on Lovenox for DVT prophylaxis. In regards to his anemia, we will follow up with stool guaiac and iron studies as previously mentioned. He will continue as full code status. TIME SPENT: Time for this discharge was approximately 75 minutes, greater than half of this was spent preparing the chart. CONDITION ON DISCHARGE: Stable. MIKY RED [id number]/[facility] #: [id number] ED
== END 2018-11-13 10:30 | disposition swing bed (61) | DRG 314 ==
LOC: AA 06:14 → SSU 10:55
PROVIDERS: ADMIT Orthopaedic Surgery; ATTEND Orthopaedic Surgery
PROC: 0QBM0ZZ Excision of Left Tarsal, Open Approach (ICD-10-PCS; principal; 2018-11-04 08:30)
PROC: 0QBM0ZZ Excision of Left Tarsal, Open Approach (ICD-10-PCS; 2018-11-06)
PROC: 0QDM0ZZ Extraction of Left Tarsal, Open Approach (ICD-10-PCS; 2018-11-11)
PROC: 2W0TX6Z Change Pressure Dressing on Left Foot (ICD-10-PCS; 2018-11-11)
DX: E11.69 Type 2 diabetes mellitus with other specified complication (principal); L02.612 Cutaneous abscess of left foot; F84.5 Asperger's syndrome; M86.672 Other chronic osteomyelitis, left ankle and foot; Z68.42 Body mass index [BMI] 45.0-49.9, adult; E87.1 Hypo-osmolality and hyponatremia; E11.42 Type 2 diabetes mellitus with diabetic polyneuropathy; I10 Essential (primary) hypertension; E78.5 Hyperlipidemia, unspecified; E11.621 Type 2 diabetes mellitus with foot ulcer; B95.2 Enterococcus as the cause of diseases classified elsewhere; B96.89 Other specified bacterial agents as the cause of diseases classified elsewhere; D63.8 Anemia in other chronic diseases classified elsewhere; E66.01 Morbid (severe) obesity due to excess calories; E11.51 Type 2 diabetes mellitus with diabetic peripheral angiopathy without gangrene; F32.9 Major depressive disorder, single episode, unspecified; F41.9 Anxiety disorder, unspecified; E11.65 Type 2 diabetes mellitus with hyperglycemia; F41.0 Panic disorder [episodic paroxysmal anxiety]; Z79.01 Long term (current) use of anticoagulants; Z79.4 Long term (current) use of insulin; Z88.1 Allergy status to other antibiotic agents; R19.7 Diarrhea, unspecified
CPT/HCPCS: 36415; 80048; 80202; 82565; 84520; 85025; 85027; 85049; 87070; 87073; 87077; 87186; 87205; 87640; 87641; 88305; 88311; A9270-GY; G8978-GP-CI; G8979-GP-CI; G8987-GO-CK; G8988-GO-CI; J1650; J2001; J2060; J2250; J2405; J2704; J2795; J3010; J3370

== ENCOUNTER 2018-11-13 10:40 | Inpatient (IN) | payer OTHER ==
[2018-11-13] MEDS ORDERED: Magnesium Hydroxide LIQ* 30 ML UDC PO PRN (11:57)
[2018-11-13] MEDS ORDERED: traZODone TAB* 50 MG TAB PO PRN (12:02)
[2018-11-13] MEDS ORDERED: Loperamide CAP* 2 MG PO PRN (12:03)
[2018-11-13] MEDS ORDERED: Al Hydrox/Mg Hydrox/Simet LIQ* 30 ML UDC PO PRN (12:05)
[2018-11-13] MEDS ORDERED: Ondansetron INJ* 2 MG/ML VIAL IV PRN (12:06)
[2018-11-13] MEDS ORDERED: oxyCODONE TAB* 5 MG TAB PO PRN (12:06)
[2018-11-13] MEDS ORDERED: Vancomycin per Pharmacy* NOTE FOLLOW UP PRN (12:06)
[2018-11-13] MEDS ORDERED: Dextrose 50% Syringe 50 ML* 25 GM/50 ML SYRINGE IV PUSH PRN (12:14)
[2018-11-13] MEDS: Vancomycin(*) 1,000 MG in NS 0.9% 250 ML* 250 ML IVPB SCH ×2 (12:51→22:17)
[2018-11-13] MEDS: Insulin LISPRO* 1 UNITS UNIT SUBCUT SCH ×2 (13:45→20:38)
[2018-11-13] MEDS: oxyCODONE TAB* 5 MG TAB PO PRN (16:13)
[2018-11-13] MEDS: Atorvastatin* 10 MG TAB PO SCH (18:50)
[2018-11-13] MEDS: Insulin GLARGINE(*) 1 UNITS UNIT SUBCUT SCH (18:53)
[2018-11-13] MEDS: Docusate CAP* 100 MG PO SCH (20:39)
[2018-11-13] MEDS: Acetaminophen TAB* 325 MG PO SCH (20:39)
[2018-11-13] MEDS: Gabapentin CAP(*) 400 MG PO SCH (20:40)
[2018-11-13] MEDS: Lactobacillus Acidophilus* 1 TAB PO SCH (20:41)
[2018-11-14] MEDS: Acetaminophen TAB* 325 MG PO SCH ×3 (03:12→21:02)
[2018-11-14] MEDS: Enoxaparin(*) 40 MG/0.4 ML SYR SUBCUT SCH (09:38)
[2018-11-14] MEDS: Insulin LISPRO* 1 UNITS UNIT SUBCUT SCH ×3 (09:38→21:10)
[2018-11-14] MEDS: Lactobacillus Acidophilus* 1 TAB PO SCH ×2 (09:39→21:02)
[2018-11-14] MEDS: FLUoxetine CAP* 20 MG PO SCH (09:39)
[2018-11-14] MEDS: Lisinopril TAB* 10 MG PO SCH (09:39)
[2018-11-14] MEDS: Gabapentin CAP(*) 400 MG PO SCH ×2 (09:39→21:02)
[2018-11-14] MEDS: amLODIPine TAB* 5 MG PO SCH (09:39)
[2018-11-14] MEDS: Docusate CAP* 100 MG PO SCH ×2 (10:58→21:14)
[2018-11-14 13:12] LABS: % Iron Saturation 6 % (15-55); Iron 18 ug/dL (50-212); Total Iron Binding Capacity 300 mcg/dL (250-450); Transferrin 214 mg/dL (203-362)
[2018-11-14 13:30] LABS: Ferritin 200.6 ng/mL (24-336)
[2018-11-14] MEDS: Vancomycin(*) 1,000 MG in NS 0.9% 250 ML* 250 ML IVPB SCH ×2 (16:00→22:08)
[2018-11-14] MEDS: Atorvastatin* 10 MG TAB PO SCH (17:43)
[2018-11-14] MEDS: Insulin GLARGINE(*) 1 UNITS UNIT SUBCUT SCH (17:48)
[2018-11-15] MEDS: Acetaminophen TAB* 325 MG PO SCH ×3 (04:14→20:33)
[2018-11-15 08:06] LABS: Hematocrit 28 % (42-52); Hemoglobin 8.4 g/dl (14.0-18.0)
[2018-11-15] MEDS: Enoxaparin(*) 40 MG/0.4 ML SYR SUBCUT SCH (09:11)
[2018-11-15] MEDS: amLODIPine TAB* 5 MG PO SCH (09:12)
[2018-11-15] MEDS: Lisinopril TAB* 10 MG PO SCH (09:12)
[2018-11-15] MEDS: FLUoxetine CAP* 20 MG PO SCH (09:12)
[2018-11-15] MEDS: Gabapentin CAP(*) 400 MG PO SCH ×2 (09:12→20:33)
[2018-11-15] MEDS: Lactobacillus Acidophilus* 1 TAB PO SCH ×2 (09:12→20:33)
[2018-11-15] MEDS: Insulin LISPRO* 1 UNITS UNIT SUBCUT SCH ×3 (09:13→20:33)
[2018-11-15] MEDS: Docusate CAP* 100 MG PO SCH ×3 (09:13→20:36)
[2018-11-15] MEDS: Vancomycin(*) 1,000 MG in NS 0.9% 250 ML* 250 ML IVPB SCH ×2 (09:23→14:29)
--- NOTE | 2018-11-15 16:22 | PN ---
Progress Note - Progress Note Date of Service: 11/15/18 SOAP: Subjective: CC: foot infection HPI: 58 year old man with diabetes who had revision of left foot amputation for ongoing wound and osteomyelitis. He has a vac dressing and a PICC placed today. No pain, fever, rash, or diarrhea. Objective: Vital Signs Temp 36.8 C 11/15/18 11:15 Pulse 69 11/15/18 11:15 Resp 16 11/15/18 15:49 BP 139/65 11/15/18 11:15 Pulse Ox 95 11/15/18 16:00 Intake & Output 11/14/18 11/15/18 11/15/18 18:59 06:59 18:59 Intake Total 485 429 8194 Output Total 675 950 300 Balance -225 -220 1510 Intake: IV Fluids 250 ABX - VANCOMYCIN 250 IVPB 270 ABX - VANCOMYCIN 270 Oral 058 368 9099 Output: Urine 675 950 300 Other: Estimated Void Medium # Bowel Movements 1 Estimated Stool Amount Large Gen:awake, no distress HEENT: no thrush Heart:RRR no murmur Lungs:CTA BL Abd:+BS NTND soft Skin: no rash MSK: left lower leg vac no surrounding erythema Laboratory Results - last 24 hr 11/14/18 11/14/18 11/15/18 17:44 21:09 07:29 Hgb 8.4 L Hct 28 L POC Glucose (mg/dL) 169 H 229 H 11/15/18 11/15/18 09:04 13:39 Hgb Hct POC Glucose (mg/dL) 167 H 172 H Assessment: 1. Left foot osteomyelitis s/p amputation 2. diabetes with neuropathy 3. morbid obesity 4. cefepime caused AIN Plan: 1. cotninue vancomycin goal tr 10-15 day 12/28w weekly cbc, cmp, crp
[2018-11-15] MEDS: Atorvastatin* 10 MG TAB PO SCH (18:33)
[2018-11-15] MEDS: Insulin GLARGINE(*) 1 UNITS UNIT SUBCUT SCH (18:39)
[2018-11-16] MEDS: Vancomycin(*) 1,000 MG in NS 0.9% 250 ML* 250 ML IVPB SCH ×2 (02:18→14:40)
[2018-11-16] MEDS: Acetaminophen TAB* 325 MG PO SCH ×3 (04:10→21:13)
[2018-11-16] MEDS: Gabapentin CAP(*) 400 MG PO SCH ×2 (09:39→21:16)
[2018-11-16] MEDS: Lisinopril TAB* 10 MG PO SCH (09:39)
[2018-11-16] MEDS: Lactobacillus Acidophilus* 1 TAB PO SCH ×2 (09:40→21:17)
[2018-11-16] MEDS: FLUoxetine CAP* 20 MG PO SCH (09:40)
[2018-11-16] MEDS: amLODIPine TAB* 5 MG PO SCH (09:40)
[2018-11-16] MEDS: Insulin LISPRO* 1 UNITS UNIT SUBCUT SCH ×3 (09:40→21:17)
[2018-11-16] MEDS: Enoxaparin(*) 40 MG/0.4 ML SYR SUBCUT SCH (09:41)
[2018-11-16] MEDS: Docusate CAP* 100 MG PO SCH ×2 (09:42→21:01)
[2018-11-16] MEDS: Atorvastatin* 10 MG TAB PO SCH (17:33)
[2018-11-16] MEDS: Insulin GLARGINE(*) 1 UNITS UNIT SUBCUT SCH (17:34)
[2018-11-16] MEDS: oxyCODONE TAB* 5 MG TAB PO PRN (22:03)
[2018-11-17] MEDS: Vancomycin(*) 1,000 MG in NS 0.9% 250 ML* 250 ML IVPB SCH ×2 (01:48→13:56)
[2018-11-17] MEDS: Acetaminophen TAB* 325 MG PO SCH ×3 (04:29→21:51)
[2018-11-17] MEDS: FLUoxetine CAP* 20 MG PO SCH (08:51)
[2018-11-17] MEDS: Lisinopril TAB* 10 MG PO SCH (08:52)
[2018-11-17] MEDS: amLODIPine TAB* 5 MG PO SCH (08:52)
[2018-11-17] MEDS: Gabapentin CAP(*) 400 MG PO SCH ×2 (08:52→21:51)
[2018-11-17] MEDS: Lactobacillus Acidophilus* 1 TAB PO SCH ×2 (08:52→21:51)
[2018-11-17] MEDS: Enoxaparin(*) 40 MG/0.4 ML SYR SUBCUT SCH (08:53)
[2018-11-17] MEDS: Insulin LISPRO* 1 UNITS UNIT SUBCUT SCH ×3 (08:53→17:11)
[2018-11-17] MEDS: Docusate CAP* 100 MG PO SCH ×2 (08:56→21:43)
[2018-11-17] MEDS ORDERED: Insulin LISPRO* 1 UNITS UNIT SUBCUT SCH (11:30)
[2018-11-17] MEDS: oxyCODONE TAB* 5 MG TAB PO PRN ×2 (12:48→21:52)
[2018-11-17] MEDS: Atorvastatin* 10 MG TAB PO SCH (17:11)
[2018-11-17] MEDS: Insulin GLARGINE(*) 1 UNITS UNIT SUBCUT SCH (17:11)
[2018-11-18] MEDS: Acetaminophen TAB* 325 MG PO SCH ×3 (04:34→19:47)
[2018-11-18] MEDS: Vancomycin(*) 750 MG in NS 0.9% 250 ML* 250 ML IVPB SCH ×2 (05:33→18:35)
[2018-11-18] MEDS: Insulin LISPRO* 1 UNITS UNIT SUBCUT SCH ×3 (09:22→18:36)
[2018-11-18] MEDS: FLUoxetine CAP* 20 MG PO SCH (09:24)
[2018-11-18] MEDS: Lactobacillus Acidophilus* 1 TAB PO SCH ×2 (09:24→19:47)
[2018-11-18] MEDS: Lisinopril TAB* 10 MG PO SCH (09:25)
[2018-11-18] MEDS: Gabapentin CAP(*) 400 MG PO SCH ×2 (09:25→19:47)
[2018-11-18] MEDS: Enoxaparin(*) 40 MG/0.4 ML SYR SUBCUT SCH (10:32)
[2018-11-18] MEDS: amLODIPine TAB* 5 MG PO SCH (10:33)
[2018-11-18] MEDS: Docusate CAP* 100 MG PO SCH ×2 (10:34→19:44)
[2018-11-18] MEDS: oxyCODONE TAB* 5 MG TAB PO PRN (11:27)
[2018-11-18] MEDS: Atorvastatin* 10 MG TAB PO SCH (18:31)
[2018-11-18] MEDS: Insulin GLARGINE(*) 1 UNITS UNIT SUBCUT SCH (18:36)
[2018-11-19] MEDS: Acetaminophen TAB* 325 MG PO SCH ×3 (04:18→22:23)
[2018-11-19] MEDS: Vancomycin(*) 750 MG in NS 0.9% 250 ML* 250 ML IVPB SCH ×2 (05:48→17:29)
[2018-11-19] MEDS: Enoxaparin(*) 40 MG/0.4 ML SYR SUBCUT SCH (08:33)
[2018-11-19] MEDS: Insulin LISPRO* 1 UNITS UNIT SUBCUT SCH ×3 (08:34→17:28)
[2018-11-19] MEDS: Gabapentin CAP(*) 400 MG PO SCH ×2 (08:35→22:23)
[2018-11-19] MEDS: Lactobacillus Acidophilus* 1 TAB PO SCH ×2 (08:35→22:24)
[2018-11-19] MEDS: amLODIPine TAB* 5 MG PO SCH (08:37)
[2018-11-19] MEDS: FLUoxetine CAP* 20 MG PO SCH (08:37)
[2018-11-19] MEDS: Docusate CAP* 100 MG PO SCH ×2 (08:37→22:25)
[2018-11-19] MEDS: Lisinopril TAB* 10 MG PO SCH (08:38)
[2018-11-19] MEDS: Insulin GLARGINE(*) 1 UNITS UNIT SUBCUT SCH (17:28)
[2018-11-19] MEDS: Atorvastatin* 10 MG TAB PO SCH (17:29)
[2018-11-19] MEDS: oxyCODONE TAB* 5 MG TAB PO PRN (22:24)
[2018-11-20] MEDS: Acetaminophen TAB* 325 MG PO SCH ×3 (05:23→20:42)
[2018-11-20 06:00] LABS: ABS Basophils 0.1 10^3/ul (0-0.2); ABS Eosinophils 0.4 10^3/ul (0-0.6); ABS Lymphocytes 1.4 10^3/ul (1.0-4.8); ABS Monocytes 1.3 10^3/ul (0-0.8); ABS Neutrophils 8.3 10^3/ul (1.5-7.7); ABS Nucleated RBC 0 10^3/ul; Eosinophil % 3.4 %; Hematocrit 26 % (42-52); Hemoglobin 7.9 g/dl (14.0-18.0); Lymphocyte % 12.3 %; Mean Corpuscular HGB Conc 31 g/dl (31-36); Mean Corpuscular Hemoglobin 22 pg (27-31); Mean Corpuscular Volume 71 fL (80-94); Mean Platelet Volume 6.8 fL (7.4-10.4); Nucleated Red Blood Cells % 0.1; Platelet Count 494 10^3/ul (150-450); Red Blood Count 3.61 10^6/ul (4.00-5.40); Red Cell Distribution Width 20 % (10.5-15); White Blood Count 11.6 10^3/ul (3.5-10.8)
[2018-11-20] MEDS ORDERED: Vancomycin Trough Check NOTE FOLLOW UP ONE (06:00)
[2018-11-20 06:03] LABS: Vancomycin Trough 11.4 mcg/mL
[2018-11-20 06:07] LABS: Albumin 3.1 g/dL (3.2-5.2); Albumin/Globulin Ratio 0.7 (1-3); BUN/Creatinine Ratio 16.9 (8-20); C Reactive Protein 202.48 mg/L (<8.01); Calcium 8.6 mg/dL (8.6-10.3); EGFR African American 77.3 (>60); EGFR Non-African American 63.9 (>60); Globulin 4.3 g/dL (2-4); Potassium 4.3 mmol/L (3.5-5.0); Total Bilirubin 0.4 mg/dL (0.2-1.0); Total Protein 7.4 g/dL (6.4-8.9)
[2018-11-20] MEDS: Vancomycin(*) 750 MG in NS 0.9% 250 ML* 250 ML IVPB SCH ×2 (06:35→17:46)
[2018-11-20] MEDS: Insulin LISPRO* 1 UNITS UNIT SUBCUT SCH ×3 (09:27→17:47)
[2018-11-20] MEDS: Lisinopril TAB* 10 MG PO SCH (09:28)
[2018-11-20] MEDS: Enoxaparin(*) 40 MG/0.4 ML SYR SUBCUT SCH (09:28)
[2018-11-20] MEDS: Gabapentin CAP(*) 400 MG PO SCH ×2 (09:28→20:42)
[2018-11-20] MEDS: Docusate CAP* 100 MG PO SCH ×2 (09:28→20:43)
[2018-11-20] MEDS: Lactobacillus Acidophilus* 1 TAB PO SCH ×2 (09:28→20:43)
[2018-11-20] MEDS: FLUoxetine CAP* 20 MG PO SCH (09:29)
[2018-11-20] MEDS: amLODIPine TAB* 5 MG PO SCH (09:29)
--- NOTE | 2018-11-20 13:05 | CONSULT ---
Subjective Date of Service: 11/20/18 Interval History: Mr. Maldonado is a 58 yo male with PMH significant for DM2, HTN, HLD, obesity, anemia, left foot osteomyelitis who is currently a swing bed patient, receiving a 28 day course of IV antibiotics. Mr. Maldonado has been less mobile since his last debridement of this left foot as he is suppose to be nonweight bearing on the left LE. He has a wound vac inplace to the left foot that is being managed by orthopedics. Per NS staff he is noted to have a wound to his buttocks, NS staff have been treating this with barrier cream. Ms. Maldonado states that he has spilt some urine and feels this has caused his wound. Family History: Unchanged from Admission Social History: Unchanged from Admission Past Medical History: Unchanged from Admission Review of Systems - Measurements Intake and Output: Intake and Output Last 24 Hours 11/18/18 11/19/18 11/20/18 11/21/18 06:59 06:59 06:59 06:59 Intake Total 780 1050 3140 Output Total 1050 1460 500 Balance -270 -410 2640 Intake: IV Fluids 60 30 ABX - VANCOMYCIN 30 10 NS (0.9%) 30 20 IVPB 510 770 ABX - VANCOMYCIN 510 770 Oral 240 679 5591 Output: Urine 1050 1460 500 Other: # Bowel Movements 0 0 0 # Voids 0 - Review of Systems Constitutional Symptoms: Negative: Fever, Other - Chills Dermatology: Positive: Other - Open area to buttocks Objective Active Medications: Acetaminophen (Tylenol Tab*) 975 mg PO Q8H [facility] Al Hydrox/Mg Hydrox/Simethicone (Maalox Plus*) 30 ml PO Q6H PRN Reason: INDIGESTION Amlodipine Besylate (Norvasc Tab*) 5 mg PO QAM [facility] Atorvastatin Calcium (Lipitor*) 5 mg PO QPM [facility] Dextrose (D50w Syringe 50 Ml*) 12.5 gm IV PUSH .FOR FS < 60 - SS PRN Reason: FS < 60 Docusate Sodium (Colace Cap*) 100 mg PO BID [facility] Enoxaparin Sodium (Lovenox(*)) 40 mg SUBCUT DAILY [facility] Fluoxetine HCl (Prozac Cap*) 40 mg PO QAM [facility] Gabapentin (Neurontin Cap(*)) 400 mg PO BID [facility] Heparin Sodium (Porcine) (Heparin Flush Picc/Ml/Cvc(*)) 1 - 3 ml FLUSH 0600, 1800 [facility]; Protocol Vancomycin HCl 750 mg/ Sodium (Chloride) 250 mls @ 166.667 mls/hr IVPB Q12H [facility] Insulin Glargine (Lantus(*)) 35 units SUBCUT QPM [facility] Insulin Human Lispro (Humalog*) 10 units SUBCUT AC [facility] Lactobacillus Rhamnosus (Lactobacillus Acidophilus*) 1 tab PO BID [facility] Lisinopril (Prinivil Tab*) 10 mg PO QAM [facility] Loperamide HCl (Imodium Cap*) 2 mg PO .SEE DIRECTIONS PRN Reason: DIARRHEA Magnesium Hydroxide (Milk Of Vance Liq*) 30 ml PO Q6H PRN Reason: CONSTIPATION Ondansetron HCl (Zofran Inj*) 4 mg IV Q6H PRN Reason: NAUSEA Oxycodone HCl (Roxycodone Tab*) 5 mg PO Q4H PRN Reason: PAIN - MILD TO MODERATE Pharmacy Consult (Vancomycin Per Pharmacy*) 1 note FOLLOW UP . PRN Reason: PER PROTOCOL Trazodone HCl (Desyrel Tab*) 25 mg PO BEDTIME PRN Reason: INSOMNIA Vital Signs - 8 hr 11/20/18 11/20/18 11/20/18 08:00 09:28 12:51 Respiratory 18 16 18 Rate Oxygen Devices in Use Now: None Appearance: NAD, sitting in a chair Ears/Nose/Mouth/Throat: Mucous Membranes Moist Skin: - - See skin note below Neurological: Alert and Oriented x 3 Result Diagrams: 11/24/18 08:48 11/24/18 08:48 Skin Deviation Note - Skin Deviation Findings Left buttocks - Open area measures 1.3 cm x 1 cm x 0.1 cm. The surrounding skin is intact. No erythema. There are 2 small areas with serosanguineous drainage. Assessment/Plan: Mr. Maldonado is a 58 yo male with PMH significant for DM2, HTN, HLD, obesity, anemia, left foot osteomyelitis who is currently a swing bed patient, receiving a 28 day course of IV antibiotics. 1. Buttocks shearing injury. Suspect the open area to his left buttocks is secondary to a shearing injury. Continue to use barrier cream and frequent turning and repositioning. Discussed with Mr. Maldonado about picking his bottom off the bed when moving as to decrease friction. 2. Diabetes Mellitus. HgA1C 6.9 in 02/2018. Continue to maintain good glycemic control to allow for wound healing. 3. Osteomyelitis. Left foot. Management per primary medicine, ID and orthopedics. 4. Diet. Consistent Carbohydrate. 5. Code Status. Full Code. 6. Disposition. Currently in SWING status while he completes a course of IV ABX. Disposition per primary medicine team. TIME SPENT: Time for this wound consultation was 20 minutes, and 10 minutes was spent with the patient discussing past medical history, assessing, measuring and photographing the wound. Wound Problem/Plan Attending: Keyonna Hopkins
[2018-11-20] MEDS: Insulin GLARGINE(*) 1 UNITS UNIT SUBCUT SCH (17:47)
[2018-11-20] MEDS: Atorvastatin* 10 MG TAB PO SCH (17:47)
[2018-11-20] MEDS: oxyCODONE TAB* 5 MG TAB PO PRN (18:52)
--- NOTE | 2018-11-20 19:56 | PN ---
Subjective Date of Service: 11/20/18 Interval History: Mr. Maldonado is feeling ok today. He has many complaints including being disrupted too often, noise complaints, and being uncomfortable in the bed/chair. He was surprised to hear that he needs 42 days of abx and thought he would be leaving soon, when his foot wound is slightly improved. He denies CP, SOB, N/V. Nursing reports that he has not had a BM in 4 days and is refusing all bowel meds. Family History: Unchanged from Admission Social History: Unchanged from Admission Past Medical History: Unchanged from Admission Objective Active Medications: Acetaminophen (Tylenol Tab*) 975 mg PO Q8H [facility] Al Hydrox/Mg Hydrox/Simethicone (Maalox Plus*) 30 ml PO Q6H PRN INDIGESTION Amlodipine Besylate (Norvasc Tab*) 5 mg PO QAM [facility] Atorvastatin Calcium (Lipitor*) 5 mg PO QPM [facility] Dextrose (D50w Syringe 50 Ml*) 12.5 gm IV PUSH .FOR FS < 60 - SS PRN FS < 60 Docusate Sodium (Colace Cap*) 100 mg PO BID [facility] Enoxaparin Sodium (Lovenox(*)) 40 mg SUBCUT DAILY [facility] Fluoxetine HCl (Prozac Cap*) 40 mg PO QAM [facility] Gabapentin (Neurontin Cap(*)) 400 mg PO BID [facility] Heparin Sodium (Porcine) (Heparin Flush Picc/Ml/Cvc(*)) 1 - 3 ml FLUSH 0600, 1800 [facility]; Protocol Vancomycin HCl 750 mg/ Sodium (Chloride) 250 mls @ 166.667 mls/hr IVPB Q12H [facility] Insulin Glargine (Lantus(*)) 35 units SUBCUT QPM [facility] Insulin Human Lispro (Humalog*) 10 units SUBCUT AC [facility] Lactobacillus Rhamnosus (Lactobacillus Acidophilus*) 1 tab PO BID [facility] Lisinopril (Prinivil Tab*) 10 mg PO QAM [facility] Loperamide HCl (Imodium Cap*) 2 mg PO .SEE DIRECTIONS PRN DIARRHEA Magnesium Hydroxide (Milk Of Magnesia Liq*) 30 ml PO Q6H PRN CONSTIPATION Ondansetron HCl (Zofran Inj*) 4 mg IV Q6H PRN NAUSEA Oxycodone HCl (Roxycodone Tab*) 5 mg PO Q4H PRN PAIN - MILD TO MODERATE Trazodone HCl (Desyrel Tab*) 25 mg PO BEDTIME PRN INSOMNIA Vital Signs - 8 hr 11/20/18 11/20/18 11/20/18 12:51 14:21 18:52 Temperature 97.3 F Pulse Rate 75 Respiratory 18 18 16 Rate Blood Pressure 138/60 (mmHg) O2 Sat by Pulse 95 Oximetry Oxygen Devices in Use Now: None Appearance: Middle-aged male sitting in chair in NAD Eyes: No Scleral Icterus Ears/Nose/Mouth/Throat: Mucous Membranes Moist Neck: NL Appearance and Movements; NL JVP, Trachea Midline Respiratory: Symmetrical Chest Expansion and Respiratory Effort, Clear to Auscultation Cardiovascular: NL Sounds; No Murmurs; No JVD, RRR Abdominal: NL Sounds; No Tenderness; No Distention Skin: - - Wound vac to left foot Neurological: Alert and Oriented x 3 Lines/Tubes/Other Access: Clean, Dry and Intact PICC Line Nutrition: Taking PO's Result Diagrams: 11/20/18 05:30 11/20/18 05:30 Assess/Plan/Problems-Billing Assessment: Mr. Maldonado is a 58 yo M with PMH of DM2, HTN, HLD, anemia, obesity; who was admitted inpatient from 11/03/18 - 11/13/18 for left foot osteomyelitis and is now swing, receiving antibiotics. - Patient Problems (1) Osteomyelitis Code(s): M86.9 - OSTEOMYELITIS, UNSPECIFIED Comment: - S/P left foot amputation to the transtarsal joint - ID following - Weekly CBC, CMP, CRP - Continue vanco (day ) (2) HTN (hypertension) Code(s): I10 - ESSENTIAL (PRIMARY) HYPERTENSION Comment: - Slightly hypertensive, SBP 130-150s - Increase amlodipine; continue lisinopril (3) Diabetes Code(s): E11.9 - TYPE 2 DIABETES MELLITUS WITHOUT COMPLICATIONS Comment: - Recent BG 130-200s - Continue Lispro; increase Lantus to 40 units daily (4) Hyperlipidemia Code(s): E78.5 - HYPERLIPIDEMIA, UNSPECIFIED Comment: - Continue atorvastatin (5) DVT prophylaxis Comment: - Lovenox (6) Full code status Code(s): Z78.9 - OTHER SPECIFIED HEALTH STATUS Comment: Status and Disposition: Swing for IV abx. Attending: Jesus Manuel Ibrahim
[2018-11-21] MEDS: Vancomycin(*) 750 MG in NS 0.9% 250 ML* 250 ML IVPB SCH ×2 (05:29→17:24)
[2018-11-21] MEDS: Acetaminophen TAB* 325 MG PO SCH ×3 (05:29→21:13)
[2018-11-21] MEDS: Enoxaparin(*) 40 MG/0.4 ML SYR SUBCUT SCH (07:19)
[2018-11-21] MEDS: Gabapentin CAP(*) 400 MG PO SCH ×2 (07:19→21:14)
[2018-11-21] MEDS: Docusate CAP* 100 MG PO SCH ×2 (07:20→21:00)
[2018-11-21] MEDS: Lisinopril TAB* 10 MG PO SCH (07:20)
[2018-11-21] MEDS: FLUoxetine CAP* 20 MG PO SCH (07:20)
[2018-11-21] MEDS: amLODIPine TAB* 5 MG PO SCH (07:20)
[2018-11-21] MEDS: Lactobacillus Acidophilus* 1 TAB PO SCH ×2 (07:20→21:14)
[2018-11-21] MEDS: Insulin LISPRO* 1 UNITS UNIT SUBCUT SCH ×3 (08:09→17:07)
[2018-11-21] MEDS: Insulin GLARGINE(*) 1 UNITS UNIT SUBCUT SCH (17:22)
[2018-11-21] MEDS: Atorvastatin* 10 MG TAB PO SCH (17:23)
[2018-11-21] MEDS: oxyCODONE TAB* 5 MG TAB PO PRN (23:30)
[2018-11-22] MEDS: Acetaminophen TAB* 325 MG PO SCH ×3 (04:42→19:38)
[2018-11-22] MEDS: Vancomycin(*) 750 MG in NS 0.9% 250 ML* 250 ML IVPB SCH ×2 (06:30→17:37)
[2018-11-22] MEDS: Lactobacillus Acidophilus* 1 TAB PO SCH ×2 (09:07→19:37)
[2018-11-22] MEDS: FLUoxetine CAP* 20 MG PO SCH (09:07)
[2018-11-22] MEDS: Insulin LISPRO* 1 UNITS UNIT SUBCUT SCH ×3 (09:08→17:38)
[2018-11-22] MEDS: amLODIPine TAB* 5 MG PO SCH (09:08)
[2018-11-22] MEDS: Lisinopril TAB* 10 MG PO SCH (09:08)
[2018-11-22] MEDS: Docusate CAP* 100 MG PO SCH ×2 (09:09→19:38)
[2018-11-22] MEDS: Gabapentin CAP(*) 400 MG PO SCH ×2 (09:09→19:38)
[2018-11-22] MEDS: Enoxaparin(*) 40 MG/0.4 ML SYR SUBCUT SCH (09:09)
[2018-11-22] MEDS: Insulin GLARGINE(*) 1 UNITS UNIT SUBCUT SCH (17:38)
[2018-11-22] MEDS: Atorvastatin* 10 MG TAB PO SCH (17:39)
[2018-11-23] MEDS: Acetaminophen TAB* 325 MG PO SCH ×3 (04:56→20:24)
[2018-11-23] MEDS: Vancomycin(*) 750 MG in NS 0.9% 250 ML* 250 ML IVPB SCH ×2 (04:56→17:17)
[2018-11-23] MEDS: FLUoxetine CAP* 20 MG PO SCH (08:59)
[2018-11-23] MEDS: Gabapentin CAP(*) 400 MG PO SCH ×2 (09:00→20:24)
[2018-11-23] MEDS: Docusate CAP* 100 MG PO SCH ×2 (09:01→20:26)
[2018-11-23] MEDS: Lisinopril TAB* 10 MG PO SCH (09:01)
[2018-11-23] MEDS: Insulin LISPRO* 1 UNITS UNIT SUBCUT SCH ×3 (09:01→17:10)
[2018-11-23] MEDS: Lactobacillus Acidophilus* 1 TAB PO SCH ×2 (09:01→20:24)
[2018-11-23] MEDS: amLODIPine TAB* 5 MG PO SCH (09:01)
[2018-11-23] MEDS: Enoxaparin(*) 40 MG/0.4 ML SYR SUBCUT SCH (09:02)
[2018-11-23] MEDS: Insulin GLARGINE(*) 1 UNITS UNIT SUBCUT SCH (17:10)
[2018-11-23] MEDS: Atorvastatin* 10 MG TAB PO SCH (17:11)
[2018-11-24] MEDS: Acetaminophen TAB* 325 MG PO SCH ×3 (03:51→20:26)
[2018-11-24] MEDS: Vancomycin(*) 750 MG in NS 0.9% 250 ML* 250 ML IVPB SCH ×2 (05:55→18:36)
[2018-11-24] MEDS: Docusate CAP* 100 MG PO SCH (07:13)
[2018-11-24] MEDS: Lactobacillus Acidophilus* 1 TAB PO SCH ×2 (08:37→20:26)
[2018-11-24] MEDS: Lisinopril TAB* 10 MG PO SCH (08:37)
[2018-11-24] MEDS: FLUoxetine CAP* 20 MG PO SCH (08:37)
[2018-11-24] MEDS: Insulin LISPRO* 1 UNITS UNIT SUBCUT SCH ×3 (08:38→18:34)
[2018-11-24] MEDS: amLODIPine TAB* 5 MG PO SCH (08:38)
[2018-11-24] MEDS: Gabapentin CAP(*) 400 MG PO SCH ×2 (08:39→20:25)
[2018-11-24] MEDS: Enoxaparin(*) 40 MG/0.4 ML SYR SUBCUT SCH (08:39)
[2018-11-24 09:04] LABS: ABS Basophils 0.1 10^3/ul (0-0.2); ABS Eosinophils 0.4 10^3/ul (0-0.6); ABS Lymphocytes 1.3 10^3/ul (1.0-4.8); ABS Neutrophils 7.4 10^3/ul (1.5-7.7); ABS Nucleated RBC 0 10^3/ul; Eosinophil % 4.1 %; Hematocrit 26 % (36-46); Hemoglobin 8.2 g/dL (14.0-18.0); Lymphocyte % 12.8 %; Mean Corpuscular HGB Conc 31 g/dL (31-36); Mean Corpuscular Hemoglobin 22 pg (27-31); Mean Corpuscular Volume 70 fL (80-94); Mean Platelet Volume 6.5 fL (7.4-10.4); Nucleated Red Blood Cells % 0; Platelet Count 526 10^3/uL (150-450); Red Blood Count 3.73 10^6 /uL (4.18-5.48); Red Cell Distribution Width 20 % (10.5-15); White Blood Count 10.2 10^3/uL (3.5-10.8)
[2018-11-24 09:16] LABS: BUN/Creatinine Ratio 19.3 (8-20); Calcium 8.7 mg/dL (8.6-10.3); EGFR African American 84.7 (>60); Potassium 4.3 mmol/L (3.5-5.0)
--- NOTE | 2018-11-24 11:19 | PN ---
PROGRESS NOTE: DATE: 11/23/18 HISTORY OF PRESENT ILLNESS: Main has been here for almost 3 weeks now. He had a debridement of his large plantar ulcer, left side and has been getting frequent negative pressure dressing changes. He is comfortable. He is afebrile and feeling well. He has been on IV antibiotics per ID. Main has his back changed today at the bedside. His wounds probes about 4 cm deep and a couple of centimeters wide. I do not feel bone anymore and the nature of the drainage has changed. It is not as foul smelling. There is no erythema. The new VAC dressing is provided to Main with a Bridge Dressing to the front wound which has slightly dehisced. I have spoken to the nurses about arranging a shower for Main today. He really needs to bathe and they can wrap this, and if it gets too wet, we can change tomorrow. PLAN: Plan for him will be continued VAC dressing until the wound is stable, which will mean probably half the size it is now which I would expect in a week or so and then we can cast him with Betadine dressing which would be changed once or twice a week in the office. [id number]/[facility] #: [id number] ED
[2018-11-24] MEDS: Atorvastatin* 10 MG TAB PO SCH (18:33)
[2018-11-24] MEDS: Insulin GLARGINE(*) 1 UNITS UNIT SUBCUT SCH (18:34)
[2018-11-24] MEDS: oxyCODONE TAB* 5 MG TAB PO PRN (20:25)
[2018-11-25] MEDS: Acetaminophen TAB* 325 MG PO SCH ×3 (04:44→20:59)
[2018-11-25] MEDS ORDERED: Vancomycin Trough Check NOTE FOLLOW UP ONE (05:30)
[2018-11-25 07:04] LABS: EGFR African American 77.3 (>60); EGFR Non-African American 63.9 (>60)
[2018-11-25 07:09] LABS: Vancomycin Trough 11.4 mcg/mL
[2018-11-25] MEDS: Vancomycin(*) 750 MG in NS 0.9% 250 ML* 250 ML IVPB SCH ×2 (07:13→18:05)
[2018-11-25] MEDS: Enoxaparin(*) 40 MG/0.4 ML SYR SUBCUT SCH (08:37)
[2018-11-25] MEDS: Insulin LISPRO* 1 UNITS UNIT SUBCUT SCH ×3 (08:38→18:07)
[2018-11-25] MEDS: amLODIPine TAB* 5 MG PO SCH (08:39)
[2018-11-25] MEDS: Gabapentin CAP(*) 400 MG PO SCH ×2 (08:39→20:59)
[2018-11-25] MEDS: FLUoxetine CAP* 20 MG PO SCH (08:39)
[2018-11-25] MEDS: Lactobacillus Acidophilus* 1 TAB PO SCH ×2 (08:40→20:59)
[2018-11-25] MEDS: Lisinopril TAB* 10 MG PO SCH (08:40)
--- NOTE | 2018-11-25 12:59 | PN ---
Progress Note - Progress Note Date of Service: 11/25/18 SOAP: Subjective: CC: Left foot infection HPI: Mr. Maldonado is a 58 yo male with PMH significant for DM2, HTN, HLD, obesity, and anemia. Mr. Maldonado is status post revision of the left foot amputation for an ongoing wound and osteomyelitis. He has a wound vac in place to the left foot, this is being managed by Orthopedics. Denies fever, chills, constipation, nausea , vomiting, diarrhea, or pain. He is anxious to get home and hopes that he can be discharged later this week. He states that he is willing to come to the hospital once a week for labs and PICC line dressing changes. Objective: Vital Signs 11/24/18 15:23 Temperature 98.4 F Temperature Oral Source Pulse Rate 79 Respiratory 18 Rate Blood Pressure 135/53 (mmHg) Blood Pressure 72 Mean O2 Sat by Pulse 95 Oximetry Patient on Room Yes Air Physical Exam: General: NAD, sitting up in a chair Neurological: Alert and Oriented HEENT: Mucous membranes moist Cardiovascular: Heart Regular rate Respiratory: Lung sounds clear bilateral Abdominal: Bowel sounds present, ABD soft, non tender and non distended. ABD large. Skin: Wound vac to left LE Laboratory Tests 11/24/18 11/25/18 08:48 06:10 WBC 10.2 Hgb 8.2 L Hct 26 L Plt Count 526 H BUN 24 Creatinine 1.18 H Vancomycin Trough 11.4 Assessment: 1. Left foot osteomyelitis s/p revision of amputation 2. Diabetes Mellitus with peripheral neuropathy 3. Morbid Obesity Plan: Continue Vancomycin, goal trough 10-15. Day . Weekly CMP, CPR, and CBC. Will need continued oral antibiotics at discharge.
[2018-11-25] MEDS: Atorvastatin* 10 MG TAB PO SCH (18:07)
[2018-11-25] MEDS: Insulin GLARGINE(*) 1 UNITS UNIT SUBCUT SCH (18:11)
[2018-11-26] MEDS: Acetaminophen TAB* 325 MG PO SCH ×3 (05:48→20:38)
[2018-11-26] MEDS: Vancomycin(*) 750 MG in NS 0.9% 250 ML* 250 ML IVPB SCH ×2 (05:49→17:21)
[2018-11-26] MEDS: FLUoxetine CAP* 20 MG PO SCH (08:57)
[2018-11-26] MEDS: Lisinopril TAB* 10 MG PO SCH (08:57)
[2018-11-26] MEDS: Gabapentin CAP(*) 400 MG PO SCH ×2 (08:58→20:37)
[2018-11-26] MEDS: amLODIPine TAB* 5 MG PO SCH (08:58)
[2018-11-26] MEDS: Lactobacillus Acidophilus* 1 TAB PO SCH ×2 (08:58→20:37)
[2018-11-26] MEDS: Enoxaparin(*) 40 MG/0.4 ML SYR SUBCUT SCH (08:59)
[2018-11-26] MEDS: Insulin LISPRO* 1 UNITS UNIT SUBCUT SCH ×3 (08:59→17:23)
[2018-11-26] MEDS: Atorvastatin* 10 MG TAB PO SCH (17:24)
[2018-11-26] MEDS: Insulin GLARGINE(*) 1 UNITS UNIT SUBCUT SCH (17:24)
[2018-11-26] MEDS: oxyCODONE TAB* 5 MG TAB PO PRN (20:39)
[2018-11-27] MEDS: Acetaminophen TAB* 325 MG PO SCH ×3 (05:34→19:53)
[2018-11-27] MEDS: Vancomycin(*) 750 MG in NS 0.9% 250 ML* 250 ML IVPB SCH ×2 (05:41→17:29)
[2018-11-27 06:17] LABS: ABS Basophils 0.1 10^3/ul (0-0.2); ABS Eosinophils 0.5 10^3/ul (0-0.6); ABS Lymphocytes 1.3 10^3/ul (1.0-4.8); ABS Neutrophils 7.2 10^3/ul (1.5-7.7); ABS Nucleated RBC 0 10^3/ul; Eosinophil % 4.8 %; Hematocrit 26 % (36-46); Lymphocyte % 12.7 %; Mean Corpuscular HGB Conc 31 g/dL (31-36); Mean Corpuscular Hemoglobin 22 pg (27-31); Mean Corpuscular Volume 70 fL (80-94); Mean Platelet Volume 6.8 fL (7.4-10.4); Nucleated Red Blood Cells % 0; Platelet Count 500 10^3/uL (150-450); Red Blood Count 3.66 10^6 /uL (4.18-5.48); Red Cell Distribution Width 20 % (10.5-15)
[2018-11-27 06:19] LABS: Albumin 3.1 g/dL (3.2-5.2); Albumin/Globulin Ratio 0.7 (1-3); BUN/Creatinine Ratio 22.1 (8-20); C Reactive Protein 124.23 mg/L (<8.01); Calcium 8.8 mg/dL (8.6-10.3); EGFR African American 81.2 (>60); EGFR Non-African American 67.1 (>60); Globulin 4.3 g/dL (2-4); Potassium 4.5 mmol/L (3.5-5.0); Total Bilirubin 0.3 mg/dL (0.2-1.0); Total Protein 7.4 g/dL (6.4-8.9)
--- NOTE | 2018-11-27 08:42 | PN ---
Progress Note - Progress Note Date of Service: 11/27/18 SOAP: Subjective: CC: foot infection HPI: 58 year old man with diabetes who had revision of left foot amputation for ongoing wound and osteomyelitis. He has a vac dressing and a PICC. He feels well; no fever, rash, or diarrhea. Objective: Vital Signs Temp 36.8 C 11/15/18 11:15 Pulse 69 11/15/18 11:15 Resp 16 11/15/18 15:49 BP 139/65 11/15/18 11:15 Pulse Ox 95 11/15/18 16:00 Intake & Output 11/14/18 11/15/18 11/15/18 18:59 06:59 18:59 Intake Total 080 937 0107 Output Total 675 950 300 Balance -225 -220 1510 Intake: IV Fluids 250 ABX - VANCOMYCIN 250 IVPB 270 ABX - VANCOMYCIN 270 Oral 610 010 2161 Output: Urine 675 950 300 Other: Estimated Void Medium # Bowel Movements 1 Estimated Stool Amount Large Gen:awake, no distress HEENT: no thrush Heart:RRR no murmur Lungs:CTA BL Abd:+BS NTND soft Skin: no rash MSK: left lower leg vac no surrounding erythema Laboratory Results - last 24 hr 11/14/18 11/14/18 11/15/18 17:44 21:09 07:29 Hgb 8.4 L Hct 28 L POC Glucose (mg/dL) 169 H 229 H 11/15/18 11/15/18 09:04 13:39 Hgb Hct POC Glucose (mg/dL) 167 H 172 H Assessment: 1. Left foot osteomyelitis s/p amputation 2. diabetes with neuropathy 3. morbid obesity 4. cefepime caused AIN Plan: 1. cotninue vancomycin goal tr 10-15 day 24/28w weekly cbc, cmp, crp, vanco trough; can change to doxycycline 100 mg po bid for 14 days for discharge if vac is off before that time.
[2018-11-27] MEDS: Insulin LISPRO* 1 UNITS UNIT SUBCUT SCH ×3 (08:57→17:29)
[2018-11-27] MEDS: Gabapentin CAP(*) 400 MG PO SCH ×2 (08:57→19:54)
[2018-11-27] MEDS: Lactobacillus Acidophilus* 1 TAB PO SCH ×2 (08:57→19:54)
[2018-11-27] MEDS: amLODIPine TAB* 5 MG PO SCH (08:57)
[2018-11-27] MEDS: FLUoxetine CAP* 20 MG PO SCH (08:57)
[2018-11-27] MEDS: Lisinopril TAB* 10 MG PO SCH (08:57)
[2018-11-27] MEDS: Enoxaparin(*) 40 MG/0.4 ML SYR SUBCUT SCH (08:58)
--- NOTE | 2018-11-27 13:02 | PN ---
Subjective Date of Service: 11/27/18 Interval History: Patient is feeling well. Patient has been unable to walk due to wound vac, but denies pain. Patient denies F/C, N/V, abdominal pain, diarrhea, CP, SOB, dizziness, palpitations, or other pain. Patient feels like he is back to his baseline and is anxious to go home. Family History: Unchanged from Admission Social History: Unchanged from Admission Past Medical History: Unchanged from Admission Objective Active Medications: Acetaminophen (Tylenol Tab*) 975 mg PO Q8H [facility] Last Admin: 11/27/18 12:35 Dose: 975 mg Al Hydrox/Mg Hydrox/Simethicone (Maalox Plus*) 30 ml PO Q6H PRN PRN Reason: INDIGESTION Amlodipine Besylate (Norvasc Tab*) 10 mg PO QAM [facility] Last Admin: 11/27/18 08:57 Dose: 10 mg Atorvastatin Calcium (Lipitor*) 5 mg PO QPM [facility] Last Admin: 11/26/18 17:24 Dose: 5 mg Dextrose (D50w Syringe 50 Ml*) 12.5 gm IV PUSH .FOR FS < 60 - SS PRN PRN Reason: FS < 60 Enoxaparin Sodium (Lovenox(*)) 40 mg SUBCUT DAILY [facility] Last Admin: 11/27/18 08:58 Dose: 40 mg Fluoxetine HCl (Prozac Cap*) 40 mg PO QAM [facility] Last Admin: 11/27/18 08:57 Dose: 40 mg Gabapentin (Neurontin Cap(*)) 400 mg PO BID [facility] Last Admin: 11/27/18 08:57 Dose: 400 mg Heparin Sodium (Porcine) (Heparin Flush Picc/Ml/Cvc(*)) 1 - 3 ml FLUSH 0600, 1800 [facility]; Protocol Last Admin: 11/27/18 08:58 Dose: 1 ml Vancomycin HCl 750 mg/ Sodium (Chloride) 250 mls @ 166.667 mls/hr IVPB Q12H [facility] Last Admin: 11/27/18 05:41 Dose: 166.667 mls/hr Insulin Glargine (Lantus(*)) 40 units SUBCUT QPM [facility] Last Admin: 11/26/18 17:24 Dose: 40 units Insulin Human Lispro (Humalog*) 10 units SUBCUT AC [facility] Last Admin: 11/27/18 12:35 Dose: 10 unit Lactobacillus Rhamnosus (Lactobacillus Acidophilus*) 1 tab PO BID [facility] Last Admin: 11/27/18 08:57 Dose: 1 tab Lisinopril (Prinivil Tab*) 10 mg PO QAM [facility] Last Admin: 11/27/18 08:57 Dose: 10 mg Loperamide HCl (Imodium Cap*) 2 mg PO .SEE DIRECTIONS PRN PRN Reason: DIARRHEA Magnesium Hydroxide (Milk Of Magnesia Liq*) 30 ml PO Q6H PRN PRN Reason: CONSTIPATION Ondansetron HCl (Zofran Inj*) 4 mg IV Q6H PRN PRN Reason: NAUSEA Oxycodone HCl (Roxycodone Tab*) 5 mg PO Q4H PRN PRN Reason: PAIN - MILD TO MODERATE Last Admin: 11/26/18 20:39 Dose: 5 mg Pharmacy Consult (Vancomycin Per Pharmacy*) 1 note FOLLOW UP . PRN PRN Reason: PER PROTOCOL Pharmacy Profile Note (Vancomycin Trough Check) 1 note FOLLOW UP ONCE ONE Stop: 12/01/18 05:31 Trazodone HCl (Desyrel Tab*) 25 mg PO BEDTIME PRN PRN Reason: INSOMNIA Last Admin: 11/19/18 22:25 Dose: 25 mg Vital Signs - 8 hr 11/27/18 11/27/18 11/27/18 08:57 09:55 11:52 Respiratory 18 18 16 Rate Oxygen Devices in Use Now: None Appearance: Patient is a 58yo male who appears stated age and is sitting in the bed in [facility]. Eyes: No Scleral Icterus, PERRLA Ears/Nose/Mouth/Throat: NL Teeth, Lips, Gums, Clear Oropharnyx, Mucous Membranes Moist Neck: NL Appearance and Movements; NL JVP, Trachea Midline Respiratory: Symmetrical Chest Expansion and Respiratory Effort, Clear to Auscultation Cardiovascular: NL Sounds; No Murmurs; No JVD, RRR, No Edema Abdominal: NL Sounds; No Tenderness; No Distention, No Hepatosplenomegaly Lymphatic: No Cervical Adenopathy Extremities: No Edema, No Clubbing, Cyanosis Skin: No Nodules or Sclerosis, - - RLE covered in bulky dressing with wound vac. Neurological: Alert and Oriented x 3, NL Sensation, NL Muscle Strength and Tone , - - CN II-XII intact. Distal Neuropathy. 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 - Patient Problems (1) Osteomyelitis Current Visit: No Status: Acute Priority: High Onset Date: 07/09/14 Code (s): M86.9 - OSTEOMYELITIS, UNSPECIFIED SNOMED Code(s): 94464199 Comment: - S/P left foot amputation to the transtarsal joint - ID following - Weekly CBC, CMP, CRP - Continue vanco (day ) (2) Postoperative anemia Current Visit: No Status: Acute Code(s): D64.9 - ANEMIA, UNSPECIFIED SNOMED Code(s): 865953787 Comment: -Acute post op -Continue to monitor (3) Diabetes Current Visit: No Status: Acute Code(s): E11.9 - TYPE 2 DIABETES MELLITUS WITHOUT COMPLICATIONS SNOMED Code(s): 77670076 Comment: - Good Control - Continue Lispro and Lantus to 40 units daily (4) Hyperlipidemia Current Visit: No Status: Acute Code(s): E78.5 - HYPERLIPIDEMIA, UNSPECIFIED SNOMED Code(s): 23262393 Comment: - Continue atorvastatin (5) DVT prophylaxis Current Visit: No Status: Acute Code(s): BEW8339 - SNOMED Code(s): 852680158 Comment: - Lovenox (6) Full code status Current Visit: No Status: Acute Code(s): Z78.9 - OTHER SPECIFIED HEALTH STATUS SNOMED Code(s): 302791990 Comment: Status and Disposition: Swing for IV abx.
[2018-11-27] MEDS: Atorvastatin* 10 MG TAB PO SCH (17:30)
[2018-11-27] MEDS: Insulin GLARGINE(*) 1 UNITS UNIT SUBCUT SCH (17:30)
[2018-11-28] MEDS: Acetaminophen TAB* 325 MG PO SCH ×3 (05:32→20:35)
[2018-11-28] MEDS: Vancomycin(*) 750 MG in NS 0.9% 250 ML* 250 ML IVPB SCH ×2 (05:34→17:47)
[2018-11-28] MEDS: Lactobacillus Acidophilus* 1 TAB PO SCH ×2 (08:28→20:36)
[2018-11-28] MEDS: amLODIPine TAB* 5 MG PO SCH (08:28)
[2018-11-28] MEDS: Lisinopril TAB* 10 MG PO SCH (08:28)
[2018-11-28] MEDS: FLUoxetine CAP* 20 MG PO SCH (08:28)
[2018-11-28] MEDS: Gabapentin CAP(*) 400 MG PO SCH ×2 (08:29→20:36)
[2018-11-28] MEDS: Insulin LISPRO* 1 UNITS UNIT SUBCUT SCH ×3 (08:29→17:48)
[2018-11-28] MEDS: Enoxaparin(*) 40 MG/0.4 ML SYR SUBCUT SCH (08:30)
--- NOTE | 2018-11-28 16:55 | PN ---
Progress Note - Progress Note Date of Service: 11/28/18 SOAP: Subjective: [] Pt seen at bedside. He is frustrated due to length of time in the hospital. Denies other complaints. No fever or chills. Objective: []General: NAD, comfortably sitting in a chair LLE: wound vac changed, distal ulcer dime sized in diameter roughly 5 cm deep. Distal surgical incision is dehisced roughly 5 mm wide, granulation tissue filling in. There is no erythema and no purulence. Assessment: []Ulcer L stump Plan: []NWB LLE Vac changes Mondays and . Will discuss timing of casting with Dr Walker , anticipate within the next week
[2018-11-28] MEDS: Insulin GLARGINE(*) 1 UNITS UNIT SUBCUT SCH (17:47)
[2018-11-28] MEDS: Atorvastatin* 10 MG TAB PO SCH (17:47)
[2018-11-29] MEDS: Acetaminophen TAB* 325 MG PO SCH ×3 (03:23→19:27)
[2018-11-29] MEDS: Vancomycin(*) 750 MG in NS 0.9% 250 ML* 250 ML IVPB SCH (05:57)
[2018-11-29] MEDS: Gabapentin CAP(*) 400 MG PO SCH ×2 (08:24→19:28)
[2018-11-29] MEDS: FLUoxetine CAP* 20 MG PO SCH (08:25)
[2018-11-29] MEDS: Lisinopril TAB* 10 MG PO SCH (08:25)
[2018-11-29] MEDS: amLODIPine TAB* 5 MG PO SCH (08:25)
[2018-11-29] MEDS: Lactobacillus Acidophilus* 1 TAB PO SCH ×2 (08:25→19:27)
[2018-11-29] MEDS: Insulin LISPRO* 1 UNITS UNIT SUBCUT SCH ×4 (08:26→19:36)
[2018-11-29] MEDS: Enoxaparin(*) 40 MG/0.4 ML SYR SUBCUT SCH (08:26)
--- NOTE | 2018-11-29 15:41 | PN ---
Progress Note - Progress Note Date of Service: 11/29/18 SOAP: Subjective: CC: Left foot infection HPI: Mr. Maldonado is a 58 yo male with PMH significant for HTN, HLD, obesity, anemia, and diabetes who is s/p a revision of a left foot amputation for ongoing wound and osteomyelitis. PICC line in place and site benign. Wound vac remains in place. Main states that he is feeling well and is anxious to get home. Denies fever, chills, diarrhea, N/V/D. Objective: Vital Signs 11/29/18 08:21 Temperature 98.1 F Temperature Oral Source Pulse Rate 72 Respiratory 20 Rate Blood Pressure 121/66 (mmHg) Blood Pressure 84 Mean O2 Sat by Pulse 95 Oximetry Patient on Room Yes Air Physical Exam: General: NAD, sitting up in a chair Neurological: Alert and Oriented x3 HEENT: No thrush Cardiovascular: Heart rate regular, no murmur Respiratory: Lung sounds clear bilateral Abdominal: Bowel sounds present, ABD soft non tender and non distended Skin: Wound vac intact to left LE, no surrounding erythema Laboratory Tests 11/20/18 11/27/18 11/27/18 05:30 05:33 05:33 WBC 10.0 Hgb 8.0 L Hct 26 L Plt Count 500 H Sodium 135 Potassium 4.5 Chloride 101 Carbon Dioxide 27 BUN 25 H Creatinine 1.13 Glucose 108 H C-Reactive Protein 202.48 H 124.23 H Assessment: 1. Left foot osteomyelitis s/p revision of amputation 2. Diabetes with neuropathy 3. Morbid obesity Plan: Discontinue vancomycin today. Start doxycycline 100 PO BID for 14 days. Continue wound vac per orthopedics.
[2018-11-29] MEDS: Insulin GLARGINE(*) 1 UNITS UNIT SUBCUT SCH ×2 (18:12→19:25)
[2018-11-29] MEDS: Atorvastatin* 10 MG TAB PO SCH ×2 (18:12→19:24)
[2018-11-29] MEDS: DOXYcycline CAP(*) 100 MG PO SCH (19:27)
[2018-11-30] MEDS: Acetaminophen TAB* 325 MG PO SCH ×3 (05:12→20:24)
[2018-11-30] MEDS: FLUoxetine CAP* 20 MG PO SCH (08:21)
[2018-11-30] MEDS: Lisinopril TAB* 10 MG PO SCH (08:21)
[2018-11-30] MEDS: DOXYcycline CAP(*) 100 MG PO SCH ×2 (08:22→20:24)
[2018-11-30] MEDS: Lactobacillus Acidophilus* 1 TAB PO SCH ×2 (08:22→20:24)
[2018-11-30] MEDS: amLODIPine TAB* 5 MG PO SCH (08:22)
[2018-11-30] MEDS: Gabapentin CAP(*) 400 MG PO SCH ×2 (08:22→20:24)
[2018-11-30] MEDS: Enoxaparin(*) 40 MG/0.4 ML SYR SUBCUT SCH (08:22)
[2018-11-30] MEDS: Insulin LISPRO* 1 UNITS UNIT SUBCUT SCH ×3 (08:22→17:21)
[2018-11-30] MEDS: Ferrous Sulfate TAB* 325 MG PO SCH (12:16)
[2018-11-30] MEDS ORDERED: Alteplase (CATHFLO)* 2 MG VIAL IV ONE (15:30)
[2018-11-30] MEDS: Atorvastatin* 10 MG TAB PO SCH (17:21)
[2018-11-30] MEDS: Insulin GLARGINE(*) 1 UNITS UNIT SUBCUT SCH (17:22)
[2018-12-01] MEDS: Acetaminophen TAB* 325 MG PO SCH ×3 (05:04→19:47)
[2018-12-01] MEDS ORDERED: Vancomycin Trough Check NOTE FOLLOW UP ONE (05:30)
[2018-12-01 05:37] LABS: EGFR African American 82.9 (>60); EGFR Non-African American 68.5 (>60)
[2018-12-01] MEDS: Insulin LISPRO* 1 UNITS UNIT SUBCUT SCH ×3 (09:27→17:06)
[2018-12-01] MEDS: Enoxaparin(*) 40 MG/0.4 ML SYR SUBCUT SCH (09:27)
[2018-12-01] MEDS: DOXYcycline CAP(*) 100 MG PO SCH ×2 (09:28→19:47)
[2018-12-01] MEDS: Gabapentin CAP(*) 400 MG PO SCH ×2 (09:28→19:47)
[2018-12-01] MEDS: Lisinopril TAB* 10 MG PO SCH (09:28)
[2018-12-01] MEDS: FLUoxetine CAP* 20 MG PO SCH (09:28)
[2018-12-01] MEDS: Lactobacillus Acidophilus* 1 TAB PO SCH ×2 (09:28→19:47)
[2018-12-01] MEDS: amLODIPine TAB* 5 MG PO SCH (09:28)
[2018-12-01] MEDS: Ferrous Sulfate TAB* 325 MG PO SCH (12:30)
[2018-12-01] MEDS: oxyCODONE TAB* 5 MG TAB PO PRN (15:52)
[2018-12-01] MEDS: Insulin GLARGINE(*) 1 UNITS UNIT SUBCUT SCH (17:06)
[2018-12-01] MEDS: Atorvastatin* 10 MG TAB PO SCH (17:06)
[2018-12-02] MEDS: Acetaminophen TAB* 325 MG PO SCH ×2 (05:00→12:05)
[2018-12-02 08:00] VITALS: BP 132/65
--- NOTE | 2018-12-02 09:20 | PN ---
Progress Note - Progress Note Date of Service: 12/02/18 SOAP: Subjective: CC: foot infection HPI: 58 year old man with diabetes who had revision of left foot amputation for ongoing wound and osteomyelitis. Casted this morning. He feels well. No fever , rash, or diarrhea. Objective: Vital Signs Temp 36.3 C 12/02/18 07:35 Pulse 71 12/02/18 07:35 Resp 20 12/02/18 07:55 BP 132/65 12/02/18 07:35 Pulse Ox 96 12/02/18 07:35 Intake & Output 12/01/18 12/02/18 12/02/18 18:59 06:59 18:59 Intake Total 480 480 Output Total 950 1125 Balance -470 -645 Intake: IV Fluids 0 NS (0.9%) 0 Oral 480 480 Output: Urine 950 1125 Other: # Bowel Movements 0 Gen:awake, no distress HEENT: no thrush Heart:RRR no murmur Lungs:CTA BL Abd:+BS NTND soft Skin: no rash MSK: left lower leg casted Laboratory Results - last 24 hr 12/01/18 12/01/18 12/01/18 11:05 16:54 19:43 POC Glucose (mg/dL) 153 H 194 H 190 H 12/02/18 07:49 POC Glucose (mg/dL) 122 H Assessment: 1. Left foot osteomyelitis s/p amputation 2. diabetes with neuropathy 3. morbid obesity 4. 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 continue doxycycline 100 mg po bid day 12/22 , he will have frequent fu with Dr Walker so can fu with me 2-3 weeks. He will call fever, chills, feeling sick.
[2018-12-02] MEDS: Insulin LISPRO* 1 UNITS UNIT SUBCUT SCH ×2 (09:38→12:05)
[2018-12-02] MEDS: Gabapentin CAP(*) 400 MG PO SCH (09:39)
[2018-12-02] MEDS: Enoxaparin(*) 40 MG/0.4 ML SYR SUBCUT SCH (09:39)
[2018-12-02] MEDS: Lactobacillus Acidophilus* 1 TAB PO SCH (09:40)
[2018-12-02] MEDS: FLUoxetine CAP* 20 MG PO SCH (09:40)
[2018-12-02] MEDS: Lisinopril TAB* 10 MG PO SCH (09:40)
[2018-12-02] MEDS: amLODIPine TAB* 5 MG PO SCH (09:40)
[2018-12-02] MEDS: DOXYcycline CAP(*) 100 MG PO SCH (09:59)
[2018-12-02] MEDS: Ferrous Sulfate TAB* 325 MG PO SCH (12:06)
--- NOTE | 2018-12-02 13:11 | PN ---
PROGRESS NOTE: DATE OF VISIT: 12/02/18 HISTORY OF PRESENT ILLNESS: Main has been here in the hospital for almost a month now for treating his left deep plantar left foot ulcer. He had some bone removed, large debridement procedure, and then a VAC dressing. PHYSICAL EXAM: Today, I have examined his wound. It is probably 3 cm deep and about 1.5 cm wide. I do not feel any bone and it is not purulent. PLAN: To progress his care, I placed a Betadine packing into the wound and a short leg cast. Main can do some occasional weightbearing and be discharge on his doxycycline. The plan will be to have the cast changed twice a week, on probably Sunday- or Sunday-Sunday schedule. [id number]/[facility] #: [id number] ED
--- NOTE | 2018-12-02 22:00 | DS ---
CC: Dr. Daniel Greene * DISCHARGE SUMMARY: DATE OF ADMISSION TO SWING STATUS: 11/13/18 DATE OF DISCHARGE: 12/02/18 [place] [facility] [place] and date of discharge to Swing 11/13/18). PROVIDER: Brandon Turner NP. ATTENDING PHYSICIAN: Dr. Jimenez * (report dictated by Brandon Turner NP). PRIMARY CARE PROVIDER: Dr. Daniel Greene. ORTHOPEDIC SURGEON: Dr. Walker. INFECTIOUS DISEASE: Dr. Hernandes. DISCHARGE DIAGNOSES: 1. Left osteomyelitis, status post amputation, now status post left lower extremity cast. 3. Diabetic neuropathy. SECONDARY DIAGNOSES: 1. Type 2 diabetes. 2. Hypertension. 3. Hyperlipidemia. 4. Obesity. 5. Anemia. HOSPITAL COURSE: Please see discharge summary and admission H and P for Swing by MIKY Red, for full details, but in summary, this is a 58-year-old male with a complex past medical history of type 2 diabetes, obesity, osteomyelitis of the left foot, who is also status post bilateral foot amputations, who underwent debridement of the left midfoot back in October and has been in the hospital since. He has been on Swing status since 11/13/18, undergoing IV antibiotics as well as ongoing wound care and a wound VAC. He was seen by Dr. Walker today, who casted his left lower extremity and will see the patient in 2 to 3 days in the office. Please see Dr. Walker's note for full details. The patient can do some occasional weightbearing and the plan will be to send him home on doxycycline, which he is day 12/22. He is to follow up with Dr. Hernandes in 2 to 3 weeks. Today, on evaluation, the patient is alert and oriented x3. He is very excited about going home. He states that he can ambulate well with his walker, prosthetic leg and now can do a little bit of weightbearing on his cast. He offers no complaints today. Denies pain. Reports he has a good appetite. No nausea, vomiting, diarrhea or abdominal pain. REVIEW OF SYSTEMS: A 14-point review of systems was performed. All the pertinent positives and negatives as mentioned in the history of present illness , otherwise negative. PHYSICAL EXAMINATION: Vital signs: Temperature 97.4, heart rate 71, respirations 18, O2 sat 96% on room air, blood pressure 132/65. Appearance: Obese male, sitting up in a chair, alert and oriented x3, in no acute distress. HEENT: Head is normocephalic, atraumatic. Pupils equal and reactive to light. Oropharynx is clear. Moist mucous membranes. Poor dentition. Lungs: No accessory muscle use. Lungs are clear throughout. Cardiac: S1, S2, regular rate and rhythm. Abdomen: Obese, soft, nontender, nondistended. Normal bowel sounds throughout. Extremities: Left lower extremity has a cast from the knee through the foot, hard cast. Right lower extremity is status post amputation above the ankle. No noted erythema or edema. Warm, pink, dry. Neuro: Alert and oriented x3. No focal deficits noted. DISCHARGE MEDICATIONS: 1. Amlodipine 5 mg p.o. q.a.m. 2. Pravastatin 20 mg p.o. q.p.m. 3. Melatonin 10 mg p.o. at bedtime. 4. Lisinopril 10 mg p.o. q.a.m. 5. Iron-vitamin C 65-125 one tab p.o. q.a.m. 6. Insulin lispro 10 units subcu t.i.d. 7. Prozac 40 mg p.o. q.a.m. 9. Maalox 30 mL p.o. q.6 hours p.r.n. 10. Acetaminophen 60 mg p.o. q.6 hours p.r.n. 11. Lactobacillus acidophilus one tab p.o. b.i.d. 12. Lantus 40 units subcu p.m. 13. Gabapentin 400 mg p.o. b.i.d. (please note that this is decreased from 1200 mg b.i.d.). 14. Doxycycline 100 mg p.o. b.i.d. for 10 more days. DISCHARGE PLAN: 1. The patient to be discharged to home. 2. Follow up with Dr. Walker on , in which he will continue to see Dr. Walker twice a week for a cast change. 3. Follow up with Dr. Hernandes in 2 to 3 weeks. 4. Follow up with primary care provider, Dr. Daniel Greene within 1 week. 5. The patient is stable for discharge to home. TIME SPENT: Approximately 60 minutes was spent on this discharge. BRANDON TURNER, NANNY/HOUSEHOLD MANAGER [id number]/[facility] #: [id number] [facility]OVE HOSPITALAlfredo
== END 2018-12-02 14:15 | disposition home or self-care (01) | DRG 344 ==
LOC: SSU 10:40 → MEDTELE 11-14 14:26 → MED 11-14 14:33
PROVIDERS: ADMIT Orthopaedic Surgery; ATTEND Orthopaedic Surgery
PROC: 02HV33Z Insertion of Infusion Device into Superior Vena Cava, Percutaneous Approach (ICD-10-PCS; principal; 2018-11-15)
DX: E11.69 Type 2 diabetes mellitus with other specified complication (principal); M86.8X7 Other osteomyelitis, ankle and foot; T81.30XA Disruption of wound, unspecified, initial encounter; Z68.42 Body mass index [BMI] 45.0-49.9, adult; I10 Essential (primary) hypertension; E78.5 Hyperlipidemia, unspecified; D63.8 Anemia in other chronic diseases classified elsewhere; S39.82XA Other specified injuries of lower back, initial encounter; E11.42 Type 2 diabetes mellitus with diabetic polyneuropathy; E66.01 Morbid (severe) obesity due to excess calories; D64.9 Anemia, unspecified; Z89.441 Acquired absence of right ankle; Z79.4 Long term (current) use of insulin
CPT/HCPCS: 36415; 80048; 80053; 80202; 82270; 82565; 82728; 83540; 83550; 84520; 85014; 85018; 85025; 86140; A9270-GY; C1751; J1650; J2997; J3370

== ENCOUNTER 2019-02-10 10:17 | Inpatient (IN) | payer OTHER ==
[2019-02-10] MEDS ORDERED: Clindamycin 900 MG IVPREMIX(* 900 MG/50 ML SDV IV ONE (10:39)
[2019-02-10] MEDS ORDERED: Insulin REGULAR(*) 1 UNITS UNIT ONE ×2 (11:18→12:42)
[2019-02-10] MEDS ORDERED: Succinylcholine* 20 MG/ML 10 ML VIAL ONE (12:02)
[2019-02-10] MEDS ORDERED: fentaNYL* 50 MCG/ML 2 ML VIAL (100 MCG VIAL) ONE (12:02)
[2019-02-10] MEDS ORDERED: Midazolam* 1 MG/ML 2 ML VIAL (2 MG) ONE (12:02)
[2019-02-10] MEDS ORDERED: Rocuronium* 10 MG/ML VIAL ONE (13:22)
[2019-02-10] MEDS ORDERED: Phenylephrine 10 MG/ML VIAL* 1 ML VIAL ONE ×2 (13:38→13:44)
[2019-02-10] MEDS ORDERED: Ondansetron INJ* 2 MG/ML VIAL ONE (14:13)
[2019-02-10] MEDS ORDERED: Metoclopramide IV* 5 MG/ML 2 ML VIAL ONE (14:13)
[2019-02-10] MEDS ORDERED: Ketorolac INJ* 30 MG/ML 1 ML VIAL ONE (14:13)
[2019-02-10] MEDS ORDERED: HYDROmorphone INJ1* 1 MG/ML SYRINGE ONE ×2 (14:17→15:06)
[2019-02-10] MEDS ORDERED: Neostigmine Methylsulfate* 1 MG/ML 10 ML VIAL (1 mg/ml) ONE (14:21)
[2019-02-10] MEDS ORDERED: Glycopyrrolate IV* 0.2 MG/ML 1 ML VIAL ONE (14:21)
[2019-02-10] MEDS ORDERED: Bupivacaine 0.5%* 50 ML VIAL ONE (14:25)
[2019-02-10] MEDS ORDERED: Naloxone* 0.4 MG/ML 1 ML VIAL IV PRN (14:32)
[2019-02-10] MEDS ORDERED: DiMENhydriNATE IV* 50 MG/ML VIAL IV PUSH PRN (14:32)
[2019-02-10] MEDS ORDERED: oxyCODONE TAB* 5 MG TAB PO PRN (14:32)
[2019-02-10] MEDS ORDERED: Magnesium Hydroxide LIQ* 30 ML UDC PO PRN (15:02)
[2019-02-10] MEDS ORDERED: Morphine 4 MG/ML VIAL (1 ml) 4 MG/ML VIAL IV PRN (15:02)
[2019-02-10] MEDS ORDERED: Ondansetron INJ* 2 MG/ML VIAL IV PRN (15:02)
[2019-02-10] MEDS ORDERED: traZODone TAB* 50 MG TAB PO PRN (15:02)
[2019-02-10] MEDS ORDERED: diPHENhydraMINE IV* 50 MG/ML 1 ml VIAL (BENADRYL) IV PRN (15:02)
[2019-02-10] MEDS: HYDROmorphone INJ1* 1 MG/ML SYRINGE IV PRN ×2 (15:08→15:33)
[2019-02-10] MEDS ORDERED: oxyCODONE TAB* 5 MG TAB ONE (15:13)
[2019-02-10] MEDS: oxyCODONE TAB* 5 MG TAB PO PRN ×2 (18:02→22:46)
[2019-02-10] MEDS: Acetaminophen TAB* 325 MG PO SCH (19:24)
--- NOTE | 2019-02-10 21:03 | OP ---
DATE OF OPERATION: 02/10/19 - ROOM #332 DATE OF : 64 ATTENDING SURGEON: Rizwan Walker MD HEEL GUMMER: Tanvi Petersen PA-C PRE-OP DIAGNOSIS: Osteomyelitis, chronic, left hindfoot stump. POST-OP DIAGNOSIS: Osteomyelitis, chronic, left hindfoot stump. OPERATIVE PROCEDURE: Left amputation, below knee. DESCRIPTION OF PROCEDURE: The patient was taken to the operating room where a thigh tourniquet was applied. We made a transverse incision at the junction of mid proximal third left leg with a longer posterior flap. We incised down through the periosteum and the fascia dividing the anterior musculature under direct vision. The large oscillating saw was then used to transect the tibia, a handbreadth below the tubercle, and the fibula 2 cm more proximal. We beveled the anterior corner of the tibia. We then flexed through the osteotomy to expose the posterior musculature, which was divided with a 10-blade, thus delivering the leg to Pathology. Cultures were taken of the narrow space of the tibia as well. We then performed the suture ligature of #1 Vicryl of the posterior tibial vessels, the anterior tibial vessels, and then dropped the tourniquet. There was some sorted extra bleeding, which was also controlled with hemostasis or suture ligatures. A 3 L saline lavage was then performed and we closed posterior to anterior flaps then with interrupted #1 Vicryl sutures, 2-0 Vicryl subcu, and Prolene for the skin, and a compression dressing plaster splint was applied. [id number]/[facility] #: [id number] MTDAlfredo
[2019-02-10] MEDS: Ferrous Sulfate TAB* 325 MG PO SCH (21:21)
[2019-02-10] MEDS: Clindamycin 600 MG IVPREMIX(* 600 MG/50 ML SDV IV SCH (21:21)
[2019-02-10] MEDS: Gabapentin CAP(*) 400 MG PO SCH (21:21)
[2019-02-10] MEDS: Atorvastatin* 10 MG TAB PO SCH (21:22)
[2019-02-10] MEDS: Docusate CAP* 100 MG PO SCH (21:22)
[2019-02-10] MEDS: Insulin GLARGINE(*) 1 UNITS UNIT SUBCUT SCH (22:41)
--- NOTE | 2019-02-10 23:49 | CONS ---
CC: Dr. Walker * CONSULTATION REPORT: DATE OF CONSULT: 02/10/19 PROVIDER: Di Sandy NP. ATTENDING PHYSICIAN: Dr. Walker. CONSULTING PHYSICIAN: Dr. Shweta Godwin (dictated by Di Sandy NP). REASON FOR CONSULT: Co-management of chronic medical conditions. HISTORY OF PRESENT ILLNESS: Mr. Maldonado is a 58-year-old male with a past medical history significant for morbid obesity, type 2 diabetes with poor control, chronic kidney disease, peripheral vascular disease, hypertension, and depression, who presented to [facility] [place] for an elective left below-knee amputation. For complete details, please see full dictated H and P from Dr. Walker. In brief, the patient had ongoing issue with ulceration to his left heel and had multiple foot debridement and continued to have osteomyelitis, so it was recommended that the patient have a below-knee amputation by Dr. Walker. In the immediate preoperative period, the patient had no complaints. He denied any fever or chills. Denied any chest pain or edema. Denied any cough, hemoptysis, or shortness of breath. No nausea, vomiting, diarrhea, or abdominal pain. Denied any gross hematuria, dysuria, focal weakness, or sensory loss. Denied any visual complaints, arthralgias, myalgias, rashes, lesions, or open wound. He does report that he did have an ulceration to his left lower leg. Denies any psychosis or anxiety. PAST MEDICAL HISTORY: Significant for: 1. Type 2 diabetes. 2. Morbid obesity. 3. Chronic kidney disease. 4. Peripheral vascular disease. 5. Hypertension. 6. Depression. 7. History of interstitial nephritis and end-stage renal disease requiring dialysis secondary to cefepime. 8. Hyperlipidemia. 9. History of osteomyelitis. 10. Asperger's. PAST SURGICAL HISTORY: Multiple debridement of the left and multiple surgeries on the right foot. MEDICATIONS: Home medications include: 1. Humalog 10 units subcu with meals. 2. Ferrous sulfate 325 mg p.o. b.i.d. 3. Fluoxetine 40 mg p.o. daily. 4. Amlodipine 5 mg p.o. daily. 5. Pravastatin 20 mg p.o. at bedtime. 6. Lisinopril 5 mg p.o. daily. 7. Lantus 58 units at bedtime. 8. Neurontin 400 mg p.o. b.i.d. 9. He is currently on levofloxacin 500 mg p.o. q.a.m. ALLERGIES: CEFEPIME. FAMILY HISTORY: Unknown. The patient was adopted. SOCIAL HISTORY: The patient lives alone. He denies any alcohol, smoking, or illicit drug use. Surrogate decision maker in the event he is unable to make his own decision is his friend Toma. He is a full code. REVIEW OF SYSTEMS: A 14-point review of systems was completed, all pertinent positives are mentioned in the HPI. PHYSICAL EXAM: General: At this time, Mr. Maldonado is resting in bed. He is alert and oriented x3. He does not appear to be in any acute distress. Vital Signs: Blood pressure 178/86, heart rate 103, respirations 16, O2 saturation 100 %, and temperature is 97.3. HEENT: Head is atraumatic, normocephalic. Eyes: EOMs are intact. Sclerae anicteric and not pale. Oral mucosa appears to be moist. Neck is supple. Lungs are clear to auscultation bilaterally. No wheezes, rales, or rhonchi. Cardiac: S1 and S2. Regular rate and rhythm. No murmurs, rubs, or gallops. Abdomen is soft and nontender. He is obese. Bowel sounds are present x4. Extremities: He can move all 4 extremities. He does have a dressing intact to his left lower extremity, it is dry and intact. He does have a right foot previous amputation that is a stump. Pedal pulse in the right lower extremity is +2. Sensation is intact to bilateral lower extremities. There is no clubbing or cyanosis noted to his hands. Neurologic: He is awake, alert, and oriented x3. Speech is clear. Thought process is intact. There are no gross focal deficits. Skin: He does a have a dressing that is dry and intact to his left lower extremity. DIAGNOSTIC STUDIES/LAB DATA: WBCs on 02/06/19 were 14.5, RBCs 5.61, hemoglobin 11.8, hematocrit was 38, platelet count was 439. INR was 1.06. Sodium 136, potassium 4.7, chloride 101, carbon dioxide 27, anion gap was 8, BUN was 23, creatinine of 1.03. Urine on 01/22/19 was within normal limits. ASSESSMENT AND PLAN: Mr. Maldonado is a 58-year-old male who had ongoing osteomyelitis of the left lower extremity and opted for an elective below-knee amputation due to osteomyelitis with Dr. Walker. Our recommendations are as follows: 1. Left below-knee amputation for osteomyelitis. Management per Orthopedics. PT/OT per Orthopedics. DVT prophylaxis per Orthopedics. Bowel regimen per Orthopedics. 2. Diabetes. We will do fingersticks a.c. and h.s. I will place him on lispro scale 10 units with meals as this is his previous home dose. I will continue his Lantus at 58 units subcu nightly and he should be placed on a consistent carb diet. 3. Hypertension. I will continue on his amlodipine and lispro as previously prescribed. 4. FEN: He should have a consistent carb diet. 5. Code status is full code. 6. DVT prophylaxis as per Orthopedics. TIME SPENT: Time spent on this consultation was 60 minutes, greater than half that time was spent at the bedside reviewing events leading thus far to his hospitalization, performing my physical exam, and reviewing my plan of care. I have discussed this with my attending Dr. Shweta Godwin; she is in agreement with my plan. DI SANDY, CERAMICS INSTRUCTOR [id number]/[facility] #: [id number] ED
[2019-02-11] MEDS: Acetaminophen TAB* 325 MG PO SCH ×3 (03:11→18:32)
[2019-02-11] MEDS: oxyCODONE TAB* 5 MG TAB PO PRN ×3 (06:09→15:51)
[2019-02-11] MEDS: Clindamycin 600 MG IVPREMIX(* 600 MG/50 ML SDV IV SCH ×2 (06:10→13:23)
[2019-02-11 07:13] LABS: Hematocrit 33 % (42-52); Hemoglobin 10.4 g/dL (14.0-18.0); Mean Platelet Volume 6.7 fL (7.4-10.4); Platelet Count 373 10^3/uL (150-450)
[2019-02-11 07:31] LABS: Calcium 8.5 mg/dL (8.6-10.3); EGFR African American 52.5 (>60); EGFR Non-African American 43.4 (>60); Potassium 4.7 mmol/L (3.5-5.0)
[2019-02-11] MEDS: Lisinopril TAB* 5 MG PO SCH (09:03)
[2019-02-11] MEDS: Vitamin THERAPEUTIC TAB PO SCH (09:03)
[2019-02-11] MEDS: amLODIPine TAB* 5 MG PO SCH (09:04)
[2019-02-11] MEDS: FLUoxetine CAP* 20 MG PO SCH (09:04)
[2019-02-11] MEDS: Ferrous Sulfate TAB* 325 MG PO SCH ×2 (09:04→21:20)
[2019-02-11] MEDS: Gabapentin CAP(*) 400 MG PO SCH ×2 (09:04→21:19)
[2019-02-11] MEDS: Enoxaparin(*) 40 MG/0.4 ML SYR SUBCUT SCH (09:06)
[2019-02-11] MEDS: Docusate CAP* 100 MG PO SCH ×2 (09:07→21:08)
[2019-02-11] MEDS: Insulin LISPRO* 1 UNITS UNIT SUBCUT SCH ×5 (09:07→18:34)
[2019-02-11] MEDS ORDERED: Dextrose 50% Syringe 50 ML* 25 GM/50 ML SYRINGE IV PUSH PRN (09:24)
--- NOTE | 2019-02-11 09:30 | PN ---
Progress Note - Progress Note Date of Service: 02/11/19 SOAP: Subjective: []Pt seen OOB in chair, he was able to move bed to chair with 2 person assist. Denies fever, chills, CP, SOB, dizziness, nausea. Objective: []General: appears well, NAD, good spirits LLE: splint CDI Assessment: []Left hindfoot stump osteomyelitis POD 1 sp L BKA Plan: []NWB LLE Keep splint CDI PMRU referral in, if not accepted need to seek other rehab placement chloroseptic lozenge ordered for sore throat Vital Signs Temp 99.8 F 02/11/19 07:10 Pulse 102 02/11/19 07:10 Resp 16 02/11/19 09:04 BP 123/74 02/11/19 07:10 Pulse Ox 95 02/11/19 07:10 Intake & Output 02/10/19 02/11/19 02/11/19 18:59 06:59 18:59 Intake Total 1750 1800 Output Total 25 0 Balance 1725 1800 Weight 320 lb Intake: IV Fluids 1150 CLINDAMYCIN 900 MG 50 LR 1100 IVPB 100 ABX - CLINDAMYCIN 100 Oral 600 1700 Output: Urine 25 0 Other: # Bowel Movements 0 Laboratory Last Values Hgb 10.4 g/dL (14.0-18.0) L 02/11/19 07:01 Hct 33 % (42-52) L 02/11/19 07:01 Plt Count 373 10^3/uL (150-450) 02/11/19 07:01 MPV 6.7 fL (7.4-10.4) L 02/11/19 07:01 Sodium 124 mmol/L (135-145) L 02/11/19 07:01 Potassium 4.7 mmol/L (3.5-5.0) 02/11/19 07:01 Chloride 94 mmol/L (101-111) L 02/11/19 07:01 Carbon Dioxide 21 mmol/L (22-32) L 02/11/19 07:01 Anion Gap 9 mmol/L (2-11) 02/11/19 07:01 BUN 38 mg/dL (6-24) H 02/11/19 07:01 Creatinine 1.65 mg/dL (0.67-1.17) H 02/11/19 07:01 Est GFR ( Amer) 52.5 (>60) 02/11/19 07:01 Est GFR (Non-Af Amer) 43.4 (>60) 02/11/19 07:01 BUN/Creatinine Ratio 23.0 (8-20) H 02/11/19 07:01 Glucose 212 mg/dL (70-100) H 02/11/19 07:01 POC Glucose (mg/dL) 279 mg/dL (70-100) H 02/10/19 20:26 Calcium 8.5 mg/dL (8.6-10.3) L 02/11/19 07:01
[2019-02-11] MEDS: Benzocaine/Menthol LOZ* 1 LOZENGE PO PRN (10:39)
--- NOTE | 2019-02-11 17:23 | PN ---
Subjective Date of Service: 02/11/19 Interval History: HOSPITALIST PROGRESS NOTE Patient seen and examined at bedside. Care reviewed and d/w Aminah Urban RN. He offers no complaints today. States his pain is controlled. In good spirits, eating bulgarian toast for breakfast. Family History: Unchanged from Admission Social History: Unchanged from Admission Past Medical History: Unchanged from Admission Objective Active Medications: Acetaminophen (Tylenol Tab*) 975 mg PO Q8H [facility] Last Admin: 02/11/19 10:38 Dose: 975 mg Amlodipine Besylate (Norvasc Tab*) 5 mg PO QAM [facility] Last Admin: 02/11/19 09:04 Dose: 5 mg Atorvastatin Calcium (Lipitor*) 5 mg PO BEDTIME [facility]; Protocol Last Admin: 02/10/19 21:22 Dose: 5 mg Dextrose (D50w Syringe 50 Ml*) 12.5 gm IV PUSH .FOR FS < 60 - SS PRN PRN Reason: FS < 60 Diphenhydramine HCl (Benadryl Iv*) 25 mg IV Q6H PRN PRN Reason: itching Docusate Sodium (Colace Cap*) 100 mg PO BID [facility] Last Admin: 02/11/19 09:07 Dose: Not Given Enoxaparin Sodium (Lovenox(*)) 40 mg SUBCUT DAILY [facility] Last Admin: 02/11/19 09:06 Dose: 40 mg Ferrous Sulfate (Ferrous Sulfate Tab*) 325 mg PO BID [facility] Last Admin: 02/11/19 09:04 Dose: 325 mg Fluoxetine HCl (Prozac Cap*) 40 mg PO QAM [facility] Last Admin: 02/11/19 09:04 Dose: 40 mg Gabapentin (Neurontin Cap(*)) 400 mg PO BID [facility] Last Admin: 02/11/19 09:04 Dose: 400 mg Insulin Glargine (Lantus(*)) 58 units SUBCUT BEDTIME [facility] Last Admin: 02/10/19 22:41 Dose: 58 units Insulin Human Lispro (Humalog*) 10 units SUBCUT TID AC [facility] Last Admin: 02/11/19 13:22 Dose: 10 unit Insulin Human Lispro (Humalog*) 0 units SUBCUT AC [facility]; Protocol Last Admin: 02/11/19 13:23 Dose: 10 unit Lisinopril (Prinivil Tab*) 5 mg PO QAM [facility] Last Admin: 02/11/19 09:03 Dose: 5 mg Magnesium Hydroxide (Milk Of Magnesia Liq*) 30 ml PO Q6H PRN PRN Reason: constipation Morphine Sulfate (Morphine 4 Mg/Ml Vial (1 Ml)) 2 mg IV Q2H PRN PRN Reason: PAIN Last Admin: 02/11/19 14:48 Dose: 2 mg Multivitamins (Theragran Tab*) 1 tab PO DAILY [facility] Last Admin: 02/11/19 09:03 Dose: 1 tab Ondansetron HCl (Zofran Inj*) 4 mg IV Q6H PRN PRN Reason: nausea Oxycodone HCl (Roxycodone Tab*) 10 mg PO Q4H PRN PRN Reason: PAIN - SEVERE Last Admin: 02/11/19 15:51 Dose: 10 mg Throat Lozenges (Chloraseptic Sloan*) 1 sloan PO Q6H PRN PRN Reason: SORE THROAT Last Admin: 02/11/19 10:39 Dose: 1 sloan Trazodone HCl (Desyrel Tab*) 25 mg PO BEDTIME PRN PRN Reason: insomnia Vital Signs - 8 hr 02/11/19 02/11/19 02/11/19 10:38 11:17 12:09 Temperature 99.6 F Pulse Rate 104 Respiratory 16 18 16 Rate Blood Pressure 136/64 (mmHg) O2 Sat by Pulse 94 Oximetry 02/11/19 02/11/19 02/11/19 14:48 15:22 15:51 Temperature 98.6 F Pulse Rate 101 Respiratory 16 16 16 Rate Blood Pressure 142/63 (mmHg) O2 Sat by Pulse 94 Oximetry Oxygen Devices in Use Now: None Appearance: Pleasant morbid obese gentleman sitting up in bed in NAD. Eyes: No Scleral Icterus Ears/Nose/Mouth/Throat: Mucous Membranes Moist Neck: Trachea Midline Respiratory: Symmetrical Chest Expansion and Respiratory Effort, Clear to Auscultation Cardiovascular: RRR - Normal S1 and S2 Extremities: - - CDI to LLE stump Neurological: Alert and Oriented x 3, NL Muscle Strength and Tone Result Diagrams: 02/11/19 07:01 02/11/19 16:10 Microbiology and Other Data: Microbiology 02/10/19 13:51 Gram Stain - Final Leg Left Wound Culture - Preliminary No Growth Day 1 02/10/19 13:51 Anaerobic Culture - Preliminary Wound - Left Leg No Growth Day 1 Assess/Plan/Problems-Billing Assessment: Mr Maldonado is a 58yo M with PMH of morbid obesity with BMI 44, type 2 DM, CKD stage, PVD, HTN, depression, interstitial nephritis secondary to Cefepime requiring dyalisis, HLD, Asperger's, osteomyelitis, admitted for an elective left BKA. Hospitalist service consulted for medical management of comorbidities. - Patient Problems (1) Status post below knee amputation of left lower extremity Comment: - Management as per Ortho. - Pain is controlled with oxycodone. - Patient is not interested in DAR - will request PMRU evaluation. (2) Chronic kidney disease Comment: - CKD stage 2-3. - Creatinine up to 1.6 - continue to monitor. (3) Diabetes Comment: - Check A1c. - Continue Lantus 58 units with Lispro SS. (4) HTN (hypertension) Comment: - Controlled. - Continue Amlodpine and Lisinopril. (5) DVT prophylaxis Comment: - Lovenox (6) Full code status Comment: Status and Disposition: Hospitalist service will continue to follow with you.
[2019-02-11] MEDS: Atorvastatin* 10 MG TAB PO SCH (21:20)
[2019-02-11] MEDS: Insulin GLARGINE(*) 1 UNITS UNIT SUBCUT SCH (21:21)
[2019-02-12] MEDS: Acetaminophen TAB* 325 MG PO SCH ×3 (03:13→18:12)
[2019-02-12 08:28] LABS: Hematocrit 32 % (42-52); Hemoglobin 9.8 g/dL (14.0-18.0); Mean Corpuscular HGB Conc 31 g/dL (31-36); Mean Corpuscular Hemoglobin 21 pg (27-31); Mean Corpuscular Volume 68 fL (80-94); Mean Platelet Volume 7.5 fL (7.4-10.4); Platelet Count 370 10^3/uL (150-450); Red Blood Count 4.73 10^6 /uL (4.18-5.48); Red Cell Distribution Width 22 % (10.5-15); White Blood Count 16.2 10^3/uL (3.5-10.8)
[2019-02-12 08:36] LABS: BUN/Creatinine Ratio 21.9 (8-20); Calcium 9.1 mg/dL (8.6-10.3); EGFR Non-African American 35.6 (>60); Potassium 4.9 mmol/L (3.5-5.0)
[2019-02-12] MEDS: FLUoxetine CAP* 20 MG PO SCH (08:40)
[2019-02-12] MEDS: Gabapentin CAP(*) 400 MG PO SCH ×2 (08:40→20:24)
[2019-02-12] MEDS: Ferrous Sulfate TAB* 325 MG PO SCH ×2 (08:40→20:24)
[2019-02-12] MEDS: amLODIPine TAB* 5 MG PO SCH (08:41)
[2019-02-12] MEDS: Lisinopril TAB* 5 MG PO SCH (08:41)
[2019-02-12] MEDS: Vitamin THERAPEUTIC TAB PO SCH (08:41)
[2019-02-12] MEDS: Enoxaparin(*) 40 MG/0.4 ML SYR SUBCUT SCH (08:41)
[2019-02-12] MEDS: Docusate CAP* 100 MG PO SCH ×2 (08:44→20:25)
[2019-02-12] MEDS ORDERED: NS 0.9% IV ONE ×2 (09:21→10:00)
--- NOTE | 2019-02-12 09:23 | PN ---
Subjective Date of Service: 02/12/19 Interval History: HOSPITALIST PROGRESS NOTE Patient seen and examined at bedside. Care reviewed and d/w Katty Hastings RN. Called by RN because patient met sepsis criteria with tachycardia and leukocytosis. He doesn't feel so well today. States he's weaker, did not sleep well last night; attributes his symptoms to Morphine. Family History: Unchanged from Admission Social History: Unchanged from Admission Past Medical History: Unchanged from Admission Objective Active Medications: Acetaminophen (Tylenol Tab*) 975 mg PO Q8H [facility] Last Admin: 02/12/19 03:13 Dose: Not Given Amlodipine Besylate (Norvasc Tab*) 5 mg PO QAM [facility] Last Admin: 02/12/19 08:41 Dose: 5 mg Atorvastatin Calcium (Lipitor*) 5 mg PO BEDTIME [facility]; Protocol Last Admin: 02/11/19 21:20 Dose: 5 mg Dextrose (D50w Syringe 50 Ml*) 12.5 gm IV PUSH .FOR FS < 60 - SS PRN PRN Reason: FS < 60 Diphenhydramine HCl (Benadryl Iv*) 25 mg IV Q6H PRN PRN Reason: itching Docusate Sodium (Colace Cap*) 100 mg PO BID [facility] Last Admin: 02/12/19 08:44 Dose: Not Given Enoxaparin Sodium (Lovenox(*)) 40 mg SUBCUT DAILY [facility] Last Admin: 02/12/19 08:41 Dose: 40 mg Ferrous Sulfate (Ferrous Sulfate Tab*) 325 mg PO BID [facility] Last Admin: 02/12/19 08:40 Dose: 325 mg Fluoxetine HCl (Prozac Cap*) 40 mg PO QAM [facility] Last Admin: 02/12/19 08:40 Dose: 40 mg Gabapentin (Neurontin Cap(*)) 400 mg PO BID [facility] Last Admin: 02/12/19 08:40 Dose: 400 mg Insulin Glargine (Lantus(*)) 58 units SUBCUT BEDTIME [facility] Last Admin: 02/11/19 21:21 Dose: 58 units Insulin Human Lispro (Humalog*) 10 units SUBCUT TID AC [facility] Last Admin: 02/11/19 18:33 Dose: 10 unit Insulin Human Lispro (Humalog*) 0 units SUBCUT AC [facility]; Protocol Last Admin: 02/11/19 18:34 Dose: 6 unit Lisinopril (Prinivil Tab*) 5 mg PO QAM [facility] Last Admin: 02/12/19 08:41 Dose: 5 mg Magnesium Hydroxide (Milk Of Magnesia Liq*) 30 ml PO Q6H PRN PRN Reason: constipation Morphine Sulfate (Morphine 4 Mg/Ml Vial (1 Ml)) 2 mg IV Q2H PRN PRN Reason: PAIN Last Admin: 02/11/19 14:48 Dose: 2 mg Multivitamins (Theragran Tab*) 1 tab PO DAILY [facility] Last Admin: 02/12/19 08:41 Dose: 1 tab Ondansetron HCl (Zofran Inj*) 4 mg IV Q6H PRN PRN Reason: nausea Oxycodone HCl (Roxycodone Tab*) 10 mg PO Q4H PRN PRN Reason: PAIN - SEVERE Last Admin: 02/11/19 15:51 Dose: 10 mg Throat Lozenges (Chloraseptic Mark*) 1 mark PO Q6H PRN PRN Reason: SORE THROAT Last Admin: 02/11/19 10:39 Dose: 1 mark Trazodone HCl (Desyrel Tab*) 25 mg PO BEDTIME PRN PRN Reason: insomnia Vital Signs - 8 hr 02/12/19 02/12/19 02/12/19 03:06 07:48 08:00 Temperature 100.0 F 98.6 F Pulse Rate 104 103 Respiratory 17 21 16 Rate Blood Pressure 135/60 136/63 (mmHg) O2 Sat by Pulse 96 93 Oximetry 02/12/19 08:40 Temperature Pulse Rate Respiratory 16 Rate Blood Pressure (mmHg) O2 Sat by Pulse Oximetry Oxygen Devices in Use Now: Nasal Cannula - 2 liters Appearance: Morbid obese gentleman sitting up in bed in [facility]. Eyes: No Scleral Icterus Ears/Nose/Mouth/Throat: Mucous Membranes Moist Neck: Trachea Midline Respiratory: Symmetrical Chest Expansion and Respiratory Effort, Clear to Auscultation Cardiovascular: RRR - Normal S1 and S2 Abdominal: NL Sounds; No Tenderness; No Distention - obese Extremities: - - CDI to left stump Neurological: Alert and Oriented x 3, NL Muscle Strength and Tone Result Diagrams: 02/12/19 06:23 02/12/19 06:22 Microbiology and Other Data: Microbiology 02/10/19 13:51 Gram Stain - Final Leg Left Wound Culture - Preliminary No Growth Day 1 02/10/19 13:51 Anaerobic Culture - Preliminary Wound - Left Leg No Growth Day 1 Assess/Plan/Problems-Billing Assessment: Mr Maldonado is a 58yo M with PMH of morbid obesity with BMI 44, type 2 DM, CKD stage, PVD, HTN, depression, interstitial nephritis secondary to Cefepime requiring dyalisis, HLD, Asperger's, osteomyelitis, admitted for an elective left BKA. Hospitalist service consulted for medical management of comorbidities. - Patient Problems (1) Sepsis Comment: - Meets sepsis criteria with tachycardia and leukocytosis. - Source is likely stump infection / ostemoyelitis. - Check LA, blood cultures, UA, CxR to r/o other sources. - NS fluid bolus ordered. - Continue to monitor. (2) Osteomyelitis Comment: - Cultures sent in the OR show no growth so far. - D/w Dr Walker, Dr Marti, and Dr Chamberlain - plan for Vancomycin, Levofloxacin , and Metronidazole for now. Will await official consults. (3) Status post below knee amputation of left lower extremity Comment: - Management as per Ortho. - Pain is controlled with oxycodone. - Patient is not interested in DAR - will request PMRU evaluation. (4) Chronic kidney disease Comment: - CKD stage 2-3. - Creatinine up to 1.96 today - Nephrology consult requested. (5) Diabetes Comment: - A1c is 8. - Continue Lantus 58 units with Lispro SS. (6) HTN (hypertension) Comment: - Controlled. - Continue Amlodpine and Lisinopril. (7) DVT prophylaxis Comment: - Lovenox (8) Full code status Comment: Status and Disposition: Hospitalist service will continue to follow with you.
[2019-02-12] MEDS ORDERED: Vancomycin(*) 2,000 MG in NS 0.9% 500 ML* 500 ML IVPB ONE (09:24)
[2019-02-12] MEDS ORDERED: Vancomycin per Pharmacy* NOTE FOLLOW UP PRN (09:29)
[2019-02-12] MEDS ORDERED: NS 0.9% 1000 ML** 1,000 ML IV SCH (09:30)
[2019-02-12] MEDS: Insulin LISPRO* 1 UNITS UNIT SUBCUT SCH ×6 (09:47→18:14)
[2019-02-12 09:51] LABS: ABS Basophils 0.1 10^3/ul (0-0.2); ABS Eosinophils 0.3 10^3/ul (0-0.6); ABS Lymphocytes 1.7 10^3/ul (1.0-4.8); ABS Monocytes 1.6 10^3/ul (0-0.8); ABS Neutrophils 12.5 10^3/ul (1.5-7.7); Eosinophil % 1.9 %; Lymphocyte % 10.3 %
[2019-02-12] MEDS ORDERED: Levofloxacin 750 MG IVPREMIX(* 750 MG/150 ML BAG IVPB SCH (10:00)
[2019-02-12 11:03] LABS: Urine Appearance Cloudy; Urine Bacteria Absent (Absent); Urine Bilirubin Negative (Negative); Urine Blood 1+ (Negative); Urine Color Yellow; Urine Glucose Negative (Negative); Urine Ketones Negative (Negative); Urine Nitrite Negative (Negative); Urine Protein 1+(30 mg/dL) (Negative); Urine Red Blood Cell Trace(0-2/hpf) (Absent); Urine Squamous Epithelial Cell Present (Absent); Urine Urobilinogen Negative (Negative); Urine White Blood Cell Trace(0-5/hpf) (Absent)
--- NOTE | 2019-02-12 12:49 | PN ---
Progress Note - Progress Note Date of Service: 02/12/19 SOAP: Subjective: []Pt seen at bedside. His only complaint is fatigue today. Denies LLE pain, CP, SOB, dizziness, nausea, ABD pain, dysuria. Objective: []General: appears well, NAD, good spirits LLE: splint CDI, no erythema proximal Right calf supple and nontender Assessment: []Left hindfoot stump osteomyelitis POD 2 sp L BKA Plan: []NWB LLE Keep splint CDI PMRU referral in, if not accepted need to seek other rehab placement Abx per ID: currently on Vanco and levaquin Vital Signs Temp 98.1 F 02/12/19 11:28 Pulse 97 02/12/19 11:28 Resp 19 02/12/19 11:28 BP 146/52 02/12/19 11:28 Pulse Ox 97 02/12/19 11:28 Intake & Output 02/11/19 02/12/19 02/12/19 18:59 06:59 18:59 Intake Total 360 770 800 Output Total 750 150 525 Balance -390 620 275 Intake: Oral 360 770 800 Output: Urine 750 150 525 Other: Estimated Void Medium # Voids 1 Laboratory Last Values WBC 16.2 10^3/uL (3.5-10.8) H 02/12/19 06:23 RBC 4.73 10^6 /uL (4.18-5.48) 02/12/19 06:23 Hgb 9.8 g/dL (14.0-18.0) L 02/12/19 06:23 Hct 32 % (42-52) L 02/12/19 06:23 MCV 68 fL (80-94) L 02/12/19 06:23 MCH 21 pg (27-31) L 02/12/19 06:23 MCHC 31 g/dL (31-36) 02/12/19 06:23 RDW 22 % (10.5-15) H 02/12/19 06:23 Plt Count 370 10^3/uL (150-450) 02/12/19 06:23 MPV 7.5 fL (7.4-10.4) 02/12/19 06:23 Neut % (Auto) 77.3 % 02/12/19 06:23 Lymph % (Auto) 10.3 % 02/12/19 06:23 [place] % (Auto) 9.9 % 02/12/19 06:23 Eos % (Auto) 1.9 % 02/12/19 06:23 Baso % (Auto) 0.6 % 02/12/19 06:23 Absolute Neuts (auto) 12.5 10^3/ul (1.5-7.7) H 02/12/19 06:23 Absolute Lymphs (auto) 1.7 10^3/ul (1.0-4.8) 02/12/19 06:23 Absolute Monos (auto) 1.6 10^3/ul (0-0.8) H 02/12/19 06:23 Absolute Eos (auto) 0.3 10^3/ul (0-0.6) 02/12/19 06:23 Absolute Basos (auto) 0.1 10^3/ul (0-0.2) 02/12/19 06:23 Absolute Nucleated RBC 0.0 10^3/ul 02/12/19 06:23 Nucleated RBC % 0.0 02/12/19 06:23 Sodium 126 mmol/L (135-145) L 02/12/19 06:22 Potassium 4.9 mmol/L (3.5-5.0) 02/12/19 06:22 Chloride 94 mmol/L (101-111) L 02/12/19 06:22 Carbon Dioxide 23 mmol/L (22-32) 02/12/19 06:22 Anion Gap 9 mmol/L (2-11) 02/12/19 06:22 BUN 43 mg/dL (6-24) H 02/12/19 06:22 Creatinine 1.96 mg/dL (0.67-1.17) H 02/12/19 06:22 Est GFR ( Amer) 43.0 (>60) 02/12/19 06:22 Est GFR (Non-Af Amer) 35.6 (>60) 02/12/19 06:22 BUN/Creatinine Ratio 21.9 (8-20) H 02/12/19 06:22 Glucose 201 mg/dL (70-100) H 02/12/19 06:22 POC Glucose (mg/dL) 198 mg/dL (70-100) H 02/12/19 11:58 Hemoglobin A1c 8.0 % (4.0-5.6) H 02/12/19 06:23 Lactic Acid 0.6 mmol/L (0.5-2.0) 02/12/19 09:16 Calcium 9.1 mg/dL (8.6-10.3) 02/12/19 06:22 Urine Color Yellow 02/12/19 10:06 Urine Appearance Cloudy 02/12/19 10:06 Urine pH 5.0 (5-9) 02/12/19 10:06 Ur Specific [place] 1.010 (1.010-1.030) 02/12/19 10:06 Urine Protein 1+(30 mg/dl) (Negative) A 02/12/19 10:06 Urine Ketones Negative (Negative) 02/12/19 10:06 Urine Blood 1+ (Negative) A 02/12/19 10:06 Urine Nitrate Negative (Negative) 02/12/19 10:06 Urine Bilirubin Negative (Negative) 02/12/19 10:06 Urine Urobilinogen Negative (Negative) 02/12/19 10:06 Ur Leukocyte Esterase Negative (Negative) 02/12/19 10:06 Urine WBC (Auto) Trace(0-5/hpf) (Absent) 02/12/19 10:06 Urine RBC (Auto) Trace(0-2/hpf) (Absent) 02/12/19 10:06 Ur Squamous Epith Cells Present (Absent) A 02/12/19 10:06 Urine Bacteria Absent (Absent) 02/12/19 10:06 Urine Glucose Negative (Negative) 02/12/19 10:06
[2019-02-12] MEDS: metroNIDAZOLE IV 500 MG/100ML* 500 MG/100 ML BAG IVPB SCH ×2 (12:53→19:34)
--- NOTE | 2019-02-12 13:31 | PN ---
Sepsis Event Evaluation Date of Evaluation: 02/12/19 Time of Evaluation: 11:00 Current Stage of Sepsis: Sepsis Vital Signs - Last 12 Hours: Vital Signs - 12 hr Temp Pulse Resp BP Pulse Ox 02/12/19 11:28 98.1 F 97 19 146/52 97 02/12/19 10:47 16 02/12/19 08:40 16 02/12/19 08:00 16 02/12/19 07:48 98.6 F 103 21 136/63 93 02/12/19 03:06 100.0 F 104 17 135/60 96 Lactic Acid: 02/12/19 09:16 Lactic Acid 0.6 - Cardiopulmonary Exam Capillary Refill: Immediate Respiratory: Symmetrical Chest Expansion and Respiratory Effort, Clear to Auscultation Cardiovascular: RRR - Normal S1 and S2 - Peripheral Pulse Exam Radial Pulses: Bilateral Normal Pedal Pulses: Bilateral Absent - bilateral amuptations Posterior Tibial Pulse: Bilateral Diminished Femoral Pulses: Bilateral Normal Popliteal Pulses: Bilateral Diminished - Skin Exam Skin Exam: Normal Turgor - [place] Coma Scale Best Eye Response: 4 - Spontaneous Best Motor Response: 6 - Obeys Commands Best Verbal Response: 5 - Oriented Coma Scale Total: 15 Assess/Plan/Problems-Billing Assessment: Mr Maldonado is a 58yo M with PMH of morbid obesity with BMI 44, type 2 DM, CKD stage, PVD, HTN, depression, interstitial nephritis secondary to Cefepime requiring dyalisis, HLD, Asperger's, osteomyelitis, admitted for an elective left BKA. Hospitalist service consulted for medical management of comorbidities. - Patient Problems (1) Sepsis Comment: - Meets sepsis criteria with tachycardia and leukocytosis. - Source is likely stump infection/osteomyelitis. - UA and CxR are negative. - LA is normal, responded well to IVF. - Continue Vancomycin, Levofloxacin, and Metronidazole. - Continue to monitor. Status and Disposition: Hospitalist service will continue to follow with you.
--- NOTE | 2019-02-12 16:13 | CONS ---
CONSULTATION REPORT: DATE OF CONSULT: 02/12/19 PRIMARY CARE PROVIDER: Dr. Daniel Greene. PROVIDER REQUESTING CONSULTATION: MIKY Gutiérrez CONSULTING SERVICE: Infectious Disease. PROVIDER: Yakov Alonso NP My attending is: Dr. Dave Hernandes * (DICTATED BY YAKOV ALONSO NP) REASON FOR CONSULT: Left foot chronic osteomyelitis. IMPRESSION: 1. Chronic osteomyelitis of the left foot. Status post left revsa-jfx-eltd amputation, postop day #2. Initial wound cultures showing no growth on day 2, no growth in the anaerobic cultures. He is noted to have leukocytosis today. He has been afebrile. 2. Systemic inflammatory response syndrome. The patient is noted to have leukocytosis today with a white blood cell count of 16.2. Additionally, this morning, he was tachycardic with his heart rate in the low 100s and tachypnea with a one-time reading of 21 respirations. He is afebrile with the exception of 2 low- grade temperatures overnight with temperature max 100.2 degrees Fahrenheit. The patient has had blood cultures drawn. He has had a urinalysis significant for 1+ blood, squamous epithelial cells present and is negative for bacteria and nitrites. He has had a chest x-ray showing cardiomegaly, no signs of acute infection. Lactic acid 0.6. He received a fluid bolus per sepsis protocol. 3. Chronic kidney disease, stage 2. The patient's creatinine is elevated. He will be seen by Nephrology as a consult has been requested. 4. Diabetes mellitus type 2 with peripheral neuropathy. 5. Morbid obesity, BMI 44.6. RECOMMENDATIONS/PLAN: For now, recommend continuing vancomycin, Levaquin, and Flagyl. We will await full workup of possible source of the sepsis and infection. HISTORY OF PRESENT ILLNESS: Mr. Maldonado is a 58-year-old male with past medical history significant for morbid obesity, diabetes mellitus type 2, peripheral vascular disease, Asperger's, hypertension, osteomyelitis of bilateral feet, chronic kidney disease stage 2, depression and hyperlipidemia, who presented to the hospital for an elective left kuegh-pht-bsux amputation on 02/10/19. Mr. Maldonado underwent incision, debridement, and wound VAC placement of the left midfoot with a nonhealing deep ulcer in October. At that time, he completed a course of IV antibiotics, followed by a 14-day course of doxycycline. He has been discharged from the hospital. He has been closely followed with Orthopedics for the ulceration of his left heel. This eventually healed and then had broken down. The wound had been being packed and casted by orthopedics. He had x-rays showing multiple fragments of bone with a moth- eaten appearance suggesting extensive osteomyelitis. Additionally, the wound had started having increasing green drainage. After discussion with Dr. Walker and his brother, the patient opted for an elective left eqyhm-kov-yjmo amputation. He underwent a left ykzah-hsf-agjwldbptk with Dr. Rizwan Walker on 02/10/19. Postoperatively, the patient was doing well. This morning, he was noted to have a low-grade fever of 100.0 and temperature max during his stay has been 100.2, leukocytosis with a white blood cell count of 16,200. Additionally, his creatinine is noted to be elevated above his baseline. He has had urinalysis significant for 1+ blood, squamous epithelial cells present, negative for nitrite and bacteria. Based off of his medication records, it appears he was started on Levaquin for a 3-week course starting around 01/21/19. The patient received clindamycin x3 doses postop for postop prophylaxis. Main denies any fevers, chills, shortness of breath, joint pain, muscle pain, diarrhea, constipation; urinary symptoms such as urgency, frequency, dysuria. He denies any recent travel. He reports an occasional nonproductive cough. He states preoperatively he was having what he felt was phantom pain on the left, but states this has mostly resolved and he just has some mild aching discomfort in the left lower extremity at this time. PAST MEDICAL HISTORY: 1. Morbid obesity. 2. Diabetes mellitus. 3. Peripheral vascular disease. 4. Asperger's. 5. Hypertension. 6. Osteomyelitis of bilateral feet. 7. Chronic kidney disease, stage 2. 8. Depression. 9. Hyperlipidemia. 10. Diabetic neuropathy. PAST SURGICAL HISTORY: 1. Status post multiple left foot incisions and drainages. 2. Status post left midfoot ostectomy. 3. Status post left foot trans-tarsal ([place]) amputation. 4. 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 MEDICATIONS: Home medications include: 1. Lispro insulin 10 units subcutaneous 3 times daily with meals. 2. Ferrous sulfate 325 mg by mouth twice daily. 3. Prozac 40 mg by mouth every morning. 4. Amlodipine 5 mg by mouth daily. 5. Pravastatin 20 mg by mouth daily. 6. Lisinopril 5 mg by mouth daily. 7. Lantus insulin 58 units subcutaneous at bedtime. 8. Neurontin 400 mg by mouth twice daily. 9. Levofloxacin 500 mg by mouth every morning. Hospital medications: 1. Acetaminophen 975 mg by mouth every 8 hours. 2. Amlodipine 5 mg by mouth daily. 3. Atorvastatin 5 mg by mouth at bedtime. 4. Dextrose 12.5 g IV push for glucose less than 60 as needed. 5. Benadryl 25 mg IV every 6 hours as needed for itching. 6. Colace 100 mg by mouth twice daily. 7. Lovenox 40 mg subcutaneous daily. 8. Ferrous sulfate 325 mg twice daily. 9. Fluoxetine 40 mg by mouth every morning. 10. Gabapentin 400 mg by mouth twice daily. 11. Lantus insulin 58 units subcutaneous at bedtime. 12. Lispro insulin 10 units subcutaneous 3 times daily with meals. 13. Lispro insulin sliding scale coverage subcutaneous with meals. 14. Levaquin 750 mg IV every 24 hours. 15. Lisinopril 5 mg by mouth every morning. 16. Milk of magnesia 30 mL by mouth every 6 hours as needed for constipation. 17. Flagyl 500 mg IV every 8 hours. 18. Multivitamin 1 tablet by mouth daily. 19. Zofran 4 mg IV every 6 hours as needed for nausea. 20. Oxycodone 10 mg by mouth every 4 hours as needed for pain. 21. Sodium chloride 100 mL an hour IV. 22. Cepacol 1 lozenge by mouth every 6 hours as needed for sore throat. 23. Trazodone 25 mg by mouth daily as needed. 24. Vancomycin 2000 mg IV. ALLERGIES: CEFEPIME caused nephritis in the past. FAMILY HISTORY: The patient has an unknown family history as he is adopted. SOCIAL HISTORY: Denies alcohol, recreational drug use, or tobacco use. REVIEW OF SYSTEMS: I performed a 10-point review of systems. All the pertinent positives and negatives are mentioned in the history of present illness. The remaining review of systems are negative. PHYSICAL EXAM: Vital Signs: Temperature 98.6, heart rate 103, respiratory rate 21, O2 sat 93% on 2 L via nasal cannula, blood pressure 136/63. General Appearance: The patient is alert, appears to be in no acute distress. Head: Normocephalic, atraumatic. EENT: Pupils are equal and reactive to light. Extraocular movements are intact. Mucous membranes are slightly dry. Neck: Supple. No lymphadenopathy. Neurological: Alert and oriented x3. Cranial nerves II through XII are grossly intact. Cardiovascular: Regular rate and rhythm. S1, S2 present. No murmurs, rubs, or gallops heard. Respiratory: No accessory muscle use. The lungs are clear to auscultation bilaterally. Abdomen : Bowel sounds present, hypoactive. Abdomen is large, soft, nontender. Extremities: No lower extremity edema. Musculoskeletal: No clubbing or cyanosis noted. The patient exhibits good strength in all extremities. No tenderness with palpation of the neck or back. Psychological: Calm and cooperative. Skin: No rashes or abnormalities seen. He has a surgical dressing to his left lower extremity stump that is clean, dry, and intact. There are no rashes or other abnormalities seen on the exposed skin. DIAGNOSTIC STUDIES/LAB DATA: Sodium 124, potassium 4.7, chloride 94, CO2 of 21 , BUN 38, creatinine 1.65, glucose 212. White blood cell count 16.2, hemoglobin 9.8, hematocrit 32, platelet count 370. Please see impression and recommendations outlined above. Thank you for asking us to see Mr. Maldonado in consultation. Recommendations have been discussed with MIKY Garcia with Orthopedics. The case has been discussed with my attending, Dr. Hernandes who agrees with the plan of care. Reviewe by CARMEN GUAJARDO 02/16/19 [id number] #: [id number] MTDAlfredo
[2019-02-12] MEDS: oxyCODONE TAB* 5 MG TAB PO PRN (20:24)
[2019-02-12] MEDS: Atorvastatin* 10 MG TAB PO SCH (20:24)
[2019-02-12] MEDS: Insulin GLARGINE(*) 1 UNITS UNIT SUBCUT SCH (21:16)
[2019-02-13] MEDS: Acetaminophen TAB* 325 MG PO SCH ×2 (03:15→12:08)
[2019-02-13] MEDS: metroNIDAZOLE IV 500 MG/100ML* 500 MG/100 ML BAG IVPB SCH ×3 (03:16→19:20)
[2019-02-13] MEDS ORDERED: Vancomycin Random Level* NOTE FOLLOW UP ONE (06:00)
[2019-02-13 06:35] LABS: ABS Basophils 0.1 10^3/ul (0-0.2); ABS Eosinophils 0.4 10^3/ul (0-0.6); ABS Monocytes 1.5 10^3/ul (0-0.8); ABS Neutrophils 11.9 10^3/ul (1.5-7.7); BUN/Creatinine Ratio 25.9 (8-20); EGFR African American 53.6 (>60); EGFR Non-African American 44.3 (>60); Eosinophil % 2.8 %; Hematocrit 31 % (42-52); Hemoglobin 9.5 g/dL (14.0-18.0); Lymphocyte % 6.8 %; Mean Corpuscular HGB Conc 31 g/dL (31-36); Mean Corpuscular Hemoglobin 21 pg (27-31); Mean Corpuscular Volume 67 fL (80-94); Mean Platelet Volume 7.3 fL (7.4-10.4); Platelet Count 338 10^3/uL (150-450); Potassium 4.8 mmol/L (3.5-5.0); Red Blood Count 4.55 10^6 /uL (4.18-5.48); Red Cell Distribution Width 22 % (10.5-15); White Blood Count 14.9 10^3/uL (3.5-10.8)
[2019-02-13 06:36] LABS: Vancomycin Random 10.6 mcg/mL
[2019-02-13] MEDS: Enoxaparin(*) 40 MG/0.4 ML SYR SUBCUT SCH (08:07)
[2019-02-13] MEDS: FLUoxetine CAP* 20 MG PO SCH (08:07)
[2019-02-13] MEDS: Vitamin THERAPEUTIC TAB PO SCH (08:07)
[2019-02-13] MEDS: Lisinopril TAB* 5 MG PO SCH (08:07)
[2019-02-13] MEDS: Gabapentin CAP(*) 400 MG PO SCH (08:07)
[2019-02-13] MEDS: amLODIPine TAB* 5 MG PO SCH (08:07)
[2019-02-13] MEDS: Docusate CAP* 100 MG PO SCH (08:07)
[2019-02-13] MEDS: Ferrous Sulfate TAB* 325 MG PO SCH (08:07)
[2019-02-13] MEDS: Insulin LISPRO* 1 UNITS UNIT SUBCUT SCH ×5 (09:09→16:12)
[2019-02-13] MEDS: Vancomycin(*) 1,000 MG in NS 0.9% 250 ML* 250 ML IVPB SCH ×2 (09:15→17:02)
--- NOTE | 2019-02-13 09:15 | PN ---
Progress Note - Progress Note Date of Service: 02/13/19 SOAP: Subjective: CC: vomiting HPI: 58 year old man with recent leg surgery now with nausea, vomiting, bloating ; no abd pain, no flatus today, last BM was before admission. No rash. Objective: Vital Signs Temp 36.3 C 02/13/19 07:20 Pulse 96 02/13/19 07:20 Resp 16 02/13/19 08:07 BP 157/72 02/13/19 07:20 Pulse Ox 97 02/13/19 07:20 Intake & Output 02/12/19 02/13/19 02/13/19 18:59 06:59 18:59 Intake Total 2925 1999 Output Total 925 1025 100 Balance 1999 975 -100 Intake: IV Fluids 975 NS (0.9%) 975 IVPB 770 ABX - FLAGYL 105 ABX - LEVOFLOXACIN 155 ABX - VANCOMYCIN 510 Oral 1180 1999 Output: Urine 925 1025 100 Other: Estimated Void Medium # Voids 1 Gen:awake, no distress HEENT: no thrush Heart:RRR no murmur Lungs:CTA BL Abd:decr BS, NTND Skin: no rash Laboratory Results - last 24 hr 02/12/19 02/12/19 02/12/19 06:23 06:23 09:16 WBC RBC Hgb Hct MCV MCH MCHC RDW Plt Count MPV Neut % (Auto) 77.3 Lymph % (Auto) 10.3 [place] % (Auto) 9.9 Eos % (Auto) 1.9 Baso % (Auto) 0.6 Absolute Neuts (auto) 12.5 H Absolute Lymphs (auto) 1.7 Absolute Monos (auto) 1.6 H Absolute Eos (auto) 0.3 Absolute Basos (auto) 0.1 Absolute Nucleated RBC 0.0 Nucleated RBC % 0.0 Sodium Potassium Chloride Carbon Dioxide Anion Gap BUN Creatinine Est GFR ( Amer) Est GFR (Non-Af Amer) BUN/Creatinine Ratio Glucose POC Glucose (mg/dL) Hemoglobin A1c 8.0 H Lactic Acid 0.6 Calcium Urine Color Urine Appearance Urine pH Ur Specific [place] Urine Protein Urine Ketones Urine Blood Urine Nitrate Urine Bilirubin Urine Urobilinogen Ur Leukocyte Esterase Urine WBC (Auto) Urine RBC (Auto) Ur Squamous Epith Cells Urine Bacteria Urine Glucose Random Vancomycin 02/12/19 02/12/1902/12/19 10:06 11:58 16:52 WBC RBC Hgb Hct MCV MCH MCHC RDW Plt Count MPV Neut % (Auto) Lymph % (Auto) [place] % (Auto) Eos % (Auto) Baso % (Auto) Absolute Neuts (auto) Absolute Lymphs (auto) Absolute Monos (auto) Absolute Eos (auto) Absolute Basos (auto) Absolute Nucleated RBC Nucleated RBC % Sodium Potassium Chloride Carbon Dioxide Anion Gap BUN Creatinine Est GFR ( Amer) Est GFR (Non-Af Amer) BUN/Creatinine Ratio Glucose POC Glucose (mg/dL) 198 H 143 H Hemoglobin A1c Lactic Acid Calcium Urine Color Yellow Urine Appearance Cloudy Urine pH 5.0 Ur Specific [place] 1.010 Urine Protein 1+(30 mg/dl) A Urine Ketones Negative Urine Blood 1+ A Urine Nitrate Negative Urine Bilirubin Negative Urine Urobilinogen Negative Ur Leukocyte Esterase Negative Urine WBC (Auto) Trace(0-5/hpf) Urine RBC (Auto) Trace(0-2/hpf) Ur Squamous Epith Cells Present A Urine Bacteria Absent Urine Glucose Negative Random Vancomycin 02/12/19 02/13/19 02/13/19 20:30 05:57 05:57 WBC 14.9 H RBC 4.55 Hgb 9.5 L Hct 31 L MCV 67 L MCH 21 L MCHC 31 RDW 22 H Plt Count 338 MPV 7.3 L Neut % (Auto) 80.3 Lymph % (Auto) 6.8 [place] % (Auto) 9.8 Eos % (Auto) 2.8 Baso % (Auto) 0.3 Absolute Neuts (auto) 11.9 H Absolute Lymphs (auto) 1.0 Absolute Monos (auto) 1.5 H Absolute Eos (auto) 0.4 Absolute Basos (auto) 0.1 Absolute Nucleated RBC 0.0 Nucleated RBC % 0.0 Sodium 128 L Potassium 4.8 Chloride 98 L Carbon Dioxide 22 Anion Gap 8 BUN 42 H Creatinine 1.62 H Est GFR ( Amer) 53.6 Est GFR (Non-Af Amer) 44.3 BUN/Creatinine Ratio 25.9 H Glucose 182 H POC Glucose (mg/dL) 173 H Hemoglobin A1c Lactic Acid Calcium 9.0 Urine Color Urine Appearance Urine pH Ur Specific [place] Urine Protein Urine Ketones Urine Blood Urine Nitrate Urine Bilirubin Urine Urobilinogen Ur Leukocyte Esterase Urine WBC (Auto) Urine RBC (Auto) Ur Squamous Epith Cells Urine Bacteria Urine Glucose Random Vancomycin 10.6 Microbiology 02/10/19 13:51 Anaerobic Culture - Preliminary Wound - Left Leg No Growth Day 2 02/10/19 13:51 Gram Stain - Final Leg Left Wound Culture - Preliminary No Growth Day 2 Assessment: 1. vomiting, decr BS ?ileus 2. sepsis, resolved, low grade fever 3. s/p Left BKA 4. DM with neuropathy 5. MATTHIAS, improving 6. morbid obesity Plan: 1. continue vancomycin goal tr 15-20 and levaquin will change to Q48hrs and follow Cr, flagyl 500 mg Q8hrs.
[2019-02-13] MEDS ORDERED: PROCHLORPERAZINE INJ 5 MG/ML 2 ML VIAL IV PRN (12:20)
--- NOTE | 2019-02-13 13:00 | PN ---
Progress Note - Progress Note Date of Service: 02/13/19 SOAP: Subjective: []Pt seen at bedside with Dr Walker. No pain of LLE today. He has been vomiting , last BM sunday prior to admission. No abdominal pain. Met sepsis criteria yesterday which has resolved. Objective: []General: NAD LLE: splint removed, incision is well approximated, no discharge. Stump with mild erythema. Soft dressing placed. Right calf supple and nontender ABD: bowel sounds hypoactive, nondistended, nontender, no guarding or rigidity. Assessment: []Left hindfoot stump osteomyelitis POD 3 sp L BKA Plan: []NWB LLE Concern for post op ileus: made NPO with sips of clears, abd film ordered. consult to GI placed Keep splint CDI PMRU referral in, if not accepted need to seek other rehab placement Abx per ID: currently on Vanco, flagyl and levaquin needs soft dressing change every 3 days with xeroform over incision Vital Signs Temp 97.6 F 02/13/19 11:30 Pulse 91 02/13/19 11:30 Resp 15 02/13/19 11:30 BP 123/63 02/13/19 11:30 Pulse Ox 99 02/13/19 11:30 Intake & Output 02/12/19 02/13/19 02/13/19 18:59 06:59 18:59 Intake Total 2925 1999 240 Output Total 925 1025 670 Balance 1999 975 -430 Intake: IV Fluids 975 NS (0.9%) 975 IVPB 770 ABX - FLAGYL 105 ABX - LEVOFLOXACIN 155 ABX - VANCOMYCIN 510 Oral 1180 1999 240 Output: Urine 925 1025 400 Emesis 270 Other: Estimated Void Medium # Voids 1 Laboratory Last Values WBC 14.9 10^3/uL (3.5-10.8) H 02/13/19 05:57 RBC 4.55 10^6 /uL (4.18-5.48) 02/13/19 05:57 Hgb 9.5 g/dL (14.0-18.0) L 02/13/19 05:57 Hct 31 % (42-52) L 02/13/19 05:57 MCV 67 fL (80-94) L 02/13/19 05:57 MCH 21 pg (27-31) L 02/13/19 05:57 MCHC 31 g/dL (31-36) 02/13/19 05:57 RDW 22 % (10.5-15) H 02/13/19 05:57 Plt Count 338 10^3/uL (150-450) 02/13/19 05:57 MPV 7.3 fL (7.4-10.4) L 02/13/19 05:57 Neut % (Auto) 80.3 % 02/13/19 05:57 Lymph % (Auto) 6.8 % 02/13/19 05:57 [place] % (Auto) 9.8 % 02/13/19 05:57 Eos % (Auto) 2.8 % 02/13/19 05:57 Baso % (Auto) 0.3 % 02/13/19 05:57 Absolute Neuts (auto) 11.9 10^3/ul (1.5-7.7) H 02/13/19 05:57 Absolute Lymphs (auto) 1.0 10^3/ul (1.0-4.8) 02/13/19 05:57 Absolute Monos (auto) 1.5 10^3/ul (0-0.8) H 02/13/19 05:57 Absolute Eos (auto) 0.4 10^3/ul (0-0.6) 02/13/19 05:57 Absolute Basos (auto) 0.1 10^3/ul (0-0.2) 02/13/19 05:57 Absolute Nucleated RBC 0.0 10^3/ul 02/13/19 05:57 Nucleated RBC % 0.0 02/13/19 05:57 Sodium 128 mmol/L (135-145) L 02/13/19 05:57 Potassium 4.8 mmol/L (3.5-5.0) 02/13/19 05:57 Chloride 98 mmol/L (101-111) L 02/13/19 05:57 Carbon Dioxide 22 mmol/L (22-32) 02/13/19 05:57 Anion Gap 8 mmol/L (2-11) 02/13/19 05:57 BUN 42 mg/dL (6-24) H 02/13/19 05:57 Creatinine 1.62 mg/dL (0.67-1.17) H 02/13/19 05:57 Est GFR ( Amer) 53.6 (>60) 02/13/19 05:57 Est GFR (Non-Af Amer) 44.3 (>60) 02/13/19 05:57 BUN/Creatinine Ratio 25.9 (8-20) H 02/13/19 05:57 Glucose 182 mg/dL (70-100) H 02/13/19 05:57 POC Glucose (mg/dL) 181 mg/dL (70-100) H 02/13/19 12:23 Hemoglobin A1c 8.0 % (4.0-5.6) H 02/12/19 06:23 Lactic Acid 0.6 mmol/L (0.5-2.0) 02/12/19 09:16 Calcium 9.0 mg/dL (8.6-10.3) 02/13/19 05:57 Urine Color Yellow 02/12/19 10:06 Urine Appearance Cloudy 02/12/19 10:06 Urine pH 5.0 (5-9) 02/12/19 10:06 Ur Specific [place] 1.010 (1.010-1.030) 02/12/19 10:06 Urine Protein 1+(30 mg/dl) (Negative) A 02/12/19 10:06 Urine Ketones Negative (Negative) 02/12/19 10:06 Urine Blood 1+ (Negative) A 02/12/19 10:06 Urine Nitrate Negative (Negative) 02/12/19 10:06 Urine Bilirubin Negative (Negative) 02/12/19 10:06 Urine Urobilinogen Negative (Negative) 02/12/19 10:06 Ur Leukocyte Esterase Negative (Negative) 02/12/19 10:06 Urine WBC (Auto) Trace(0-5/hpf) (Absent) 02/12/19 10:06 Urine RBC (Auto) Trace(0-2/hpf) (Absent) 02/12/19 10:06 Ur Squamous Epith Cells Present (Absent) A 02/12/19 10:06 Urine Bacteria Absent (Absent) 02/12/19 10:06 Urine Glucose Negative (Negative) 02/12/19 10:06 Random Vancomycin 10.6 mcg/mL 02/13/19 05:57
[2019-02-13] MEDS ORDERED: Lidocaine 2% JELLY* 6 ML JELLY TOPICAL ONE (14:54)
--- NOTE | 2019-02-13 15:33 | PN ---
Subjective Date of Service: 02/13/19 Interval History: Pt has been vomiting since AM, denies abd pain. Last BM 4-5 days ago Family History: Unchanged from Admission Social History: Unchanged from Admission Past Medical History: Unchanged from Admission Objective Active Medications: Acetaminophen (Tylenol Tab*) 975 mg PO Q8H [facility] Last Admin: 02/13/19 12:08 Dose: 975 mg Amlodipine Besylate (Norvasc Tab*) 5 mg PO QAM [facility] Last Admin: 02/13/19 08:07 Dose: 5 mg Atorvastatin Calcium (Lipitor*) 5 mg PO BEDTIME [facility]; Protocol Last Admin: 02/12/19 20:24 Dose: 5 mg Dextrose (D50w Syringe 50 Ml*) 12.5 gm IV PUSH .FOR FS < 60 - SS PRN PRN Reason: FS < 60 Diphenhydramine HCl (Benadryl Iv*) 25 mg IV Q6H PRN PRN Reason: itching Docusate Sodium (Colace Cap*) 100 mg PO BID [facility] Last Admin: 02/13/19 08:07 Dose: Not Given Enoxaparin Sodium (Lovenox(*)) 40 mg SUBCUT DAILY [facility] Last Admin: 02/13/19 08:07 Dose: 40 mg Ferrous Sulfate (Ferrous Sulfate Tab*) 325 mg PO BID [facility] Last Admin: 02/13/19 08:07 Dose: 325 mg Fluoxetine HCl (Prozac Cap*) 40 mg PO QAM [facility] Last Admin: 02/13/19 08:07 Dose: 40 mg Gabapentin (Neurontin Cap(*)) 400 mg PO BID [facility] Last Admin: 02/13/19 08:07 Dose: 400 mg Sodium Chloride (Ns 0.9% 1000 Ml) 1,000 mls @ 100 mls/hr IV PER RATE [facility] Metronidazole/Sodium Chloride (Flagyl 500 Mg Ivpb*) 500 mg in 100 mls @ 100 mls /hr IVPB Q8H [facility] Last Admin: 02/13/19 12:08 Dose: 100 mls/hr Vancomycin HCl 1,000 mg/ (Sodium Chloride) 250 mls @ 166.667 mls/hr IVPB Q8H [facility] Last Admin: 02/13/19 09:15 Dose: 166.667 mls/hr Levofloxacin/Dextrose (Levaquin 500 Mg Ivpremix(*)) 500 mg in 100 mls @ 100 mls /hr IVPB Q48HR [facility]; Protocol Insulin Glargine (Lantus(*)) 58 units SUBCUT BEDTIME [facility] Last Admin: 02/12/19 21:16 Dose: 58 units Insulin Human Lispro (Humalog*) 10 units SUBCUT TID AC [facility] Last Admin: 02/13/19 14:06 Dose: 10 unit Insulin Human Lispro (Humalog*) 0 units SUBCUT AC [facility]; Protocol Last Admin: 02/13/19 13:58 Dose: Not Given Lisinopril (Prinivil Tab*) 5 mg PO QAM [facility] Last Admin: 02/13/19 08:07 Dose: 5 mg Magnesium Hydroxide (Milk Of Magnesia Liq*) 30 ml PO Q6H PRN PRN Reason: constipation Multivitamins (Theragran Tab*) 1 tab PO DAILY [facility] Last Admin: 02/13/19 08:07 Dose: 1 tab Ondansetron HCl (Zofran Inj*) 4 mg IV Q6H PRN PRN Reason: nausea Last Admin: 02/13/19 09:15 Dose: 4 mg Oxycodone HCl (Roxycodone Tab*) 10 mg PO Q4H PRN PRN Reason: PAIN - SEVERE Last Admin: 02/12/19 20:24 Dose: 10 mg Pharmacy Consult (Vancomycin Per Pharmacy*) 1 note FOLLOW UP . PRN PRN Reason: PER PROTOCOL Pharmacy Profile Note (Vancomycin Trough Check) 1 note FOLLOW UP ONCE ONE Stop: 02/14/19 08:31 Prochlorperazine Edisylate (Compazine Inj*) 5 mg IV Q6H PRN PRN Reason: NAUSEA/VOMITING Last Admin: 02/13/19 12:44 Dose: 5 mg Throat Lozenges (Chloraseptic Sloan*) 1 sloan PO Q6H PRN PRN Reason: SORE THROAT Last Admin: 02/11/19 10:39 Dose: 1 sloan Trazodone HCl (Desyrel Tab*) 25 mg PO BEDTIME PRN PRN Reason: insomnia Vital Signs - 8 hr 02/13/19 02/13/19 02/13/19 08:07 08:10 10:10 Temperature Pulse Rate Respiratory 16 16 16 Rate Blood Pressure (mmHg) O2 Sat by Pulse Oximetry 02/13/19 02/13/19 11:30 15:18 Temperature 97.6 F 97.8 F Pulse Rate 91 86 Respiratory 15 18 Rate Blood Pressure 123/63 117/74 (mmHg) O2 Sat by Pulse 99 95 Oximetry Oxygen Devices in Use Now: None Appearance: 58 yo F in nAD, aAOx3 Eyes: No Scleral Icterus, PERRLA Ears/Nose/Mouth/Throat: NL Teeth, Lips, Gums, Mucous Membranes Moist Neck: NL Appearance and Movements; NL JVP, Trachea Midline Respiratory: Symmetrical Chest Expansion and Respiratory Effort, Clear to Auscultation Cardiovascular: NL Sounds; No Murmurs; No JVD, RRR Abdominal: - - distended, tympainc, soft, NT , BS hypoactive Lymphatic: No Cervical Adenopathy Extremities: No Edema Skin: No Rash or Ulcers, No Nodules or Sclerosis, - - L BKA in surgical dressings, not uncovered, R TMA well healed Neurological: Alert and Oriented x 3, NL Muscle Strength and Tone Result Diagrams: 02/13/19 05:57 02/13/19 05:57 Microbiology and Other Data: Microbiology 02/10/19 13:51 Gram Stain - Final Leg Left Wound Culture - Preliminary No Growth Day 1 02/10/19 13:51 Anaerobic Culture - Preliminary Wound - Left Leg No Growth Day 1 Assess/Plan/Problems-Billing Assessment: Mr Maldonado is a 58yo M with PMH of morbid obesity with BMI 44, type 2 DM, CKD stage, PVD, HTN, depression, 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 Hospitalist service consulted for medical management of comorbidities. - Patient Problems (1) Gastric outlet obstruction Comment: acute, developed 02/13/19 Appreciate GI conuslt NG to be placed f/u with CT with PO contrast holding all PO meds, start IV PPI and gentle IVF (2) Status post below knee amputation of left lower extremity Comment: - Management as per Ortho. - Pain is controlled with oxycodone. - Patient is not interested in DAR - PMRU evaluation. (3) Chronic kidney disease Comment: - CKD stage 2-3. - Creatinine down to 1.6-cont to monitor (4) Diabetes Comment: - A1c is 8. - Continue Lantus 58 units with Lispro SS. (5) Osteomyelitis SNOMED Code(s): 80252105 Comment: - Cultures sent in the OR show no growth so far. - D/w Dr Walker, Dr Marti, and Dr Chamberlain - plan for Vancomycin, Levofloxacin , and Metronidazole for now. (6) Sepsis Comment: - Met sepsis criteria with tachycardia and leukocytosis ,02/12/2019. - Source is likely stump infection/osteomyelitis. - UA and CxR are negative. - LA is normal, responded well to IVF. - Continue Vancomycin, Levofloxacin, and Metronidazole. - Continue to monitor. (7) HTN (hypertension) Comment: - Controlled. - Continue Amlodpine and Lisinopril. (8) DVT prophylaxis Comment: - Lovenox (9) Hyponatremia Comment: improved with IVF Status and Disposition: Hospitalist service will continue to follow with you.
[2019-02-13] MEDS: NS 0.9% 1000 ML** 1,000 ML IV SCH (16:38)
--- NOTE | 2019-02-13 18:17 | CONS ---
CONSULTATION REPORT: DATE OF CONSULT: 02/13/19 REASON FOR CONSULTATION: Abdominal distention. HISTORY OF PRESENT ILLNESS: This is a 58-year-old male with a past medical history of type 2 diabetes, peripheral neuropathy, severe peripheral vascular disease, and morbid obesity who had a chronic ulceration of his left heel that was nonhealing. He had a [id number] amputation done on 02/10/19. Postop, he has been having some nausea and vomiting. His normal bowel pattern is a bowel movement every 4 to 5 days since he was a child. The nausea and emesis is relatively new. He denies a known diagnosis of gastroparesis. He has never had an upper endoscopy or colonoscopy in the past. He admits to some typical heartburn. He denies any dysphagia or odynophagia. Admits to abdominal distention. He states his last bowel movement was on 02/09/19. He denies any black or blood in the stool. No hematemesis. Admits to some cramping and bloating within the abdomen, but no distinct pain. He admits to a subjective weight loss at home of 10 to 15 pounds over the last few months. The remainder of the 14-point review of systems is grossly negative. PAST MEDICAL HISTORY: 1. Diabetes type 2. 2. Morbid obesity. 3. CKD. 4. Peripheral vascular disease. 5. Hypertension. 6. Depression. MEDICATIONS: Home medications include: 1. Levofloxacin. 2. Gabapentin. 3. Lantus. 4. Amlodipine. 5. Humalog. 6. Prozac. 7. Lisinopril. 8. Pravastatin. 9. Tylenol. ALLERGIES: Include CEFEPIME. FAMILY HISTORY: Unknown; he was adopted. SOCIAL HISTORY: No alcohol use. No tobacco use currently; however, he is a former smoker. No marijuana use. REVIEW OF SYSTEMS: The remainder of the 14-point review of systems is grossly negative. PHYSICAL EXAMINATION: Vital Signs: Blood pressure is 123/63, pulse is 91, temperature 97.6, respiratory rate 15, T-max 98.5. General: Chronically ill appearing, in no acute distress. HEENT: Atraumatic, normocephalic. Pupils equal, round, reactive to light. Extraocular movements are intact. Conjunctivae are pink. Sclerae anicteric. Neck: Supple. Trachea midline. Cardiovascular: Regular rate and rhythm. S1, S2. Pulmonary: Diminished at base. Fair effort. Abdomen: Obese, soft with mild distention. Bowel sounds hypoactive. No guarding or rebound. Slight tenderness to palpation within the epigastrium. Unable to palpate for hepatosplenomegaly given body habitus. Extremities: Left BKA, wrapped. Psych: Affect is flat. LABORATORY DATA/DIAGNOSTIC STUDIES: WBC count 14.9, hemoglobin 9.5, platelet count 338,000. Sodium 128, potassium 4.8, chloride 98, BUN is 42, creatinine is 1.62, glucose 182, calcium is 9. He had an abdominal x-ray done on 02/13/19 that reveals a massively distended stomach with concerns for possible gastric outlet obstruction, no free air. ASSESSMENT AND PLAN: This is a 58-year-old male with abdominal distention and findings concerning for potential gastric outlet obstruction. 1. Potential gastric outlet obstruction. He has never had an upper endoscopy. The etiology is unclear at this time. We will plan on placing NG tube and checking abdominal film for placement. Once placement is confirmed, we will get a CT of the abdomen and pelvis with p.o. contrast to better delineate if this is a small bowel obstruction versus a true gastric outlet obstruction. In the differential could be peptic ulcer disease, severe gastroparesis among other things and hopefully the CT scan will give us a better delineation. If no clear etiology is seen, he may need upper endoscopy to evaluate the pyloric channel. I discussed the case with Dr. Ocasio who will have the NG placed and order the CT scan. Further workup pending the results of this. Review of the x -ray personally by me does not show significant dilation of his colon. His normal bowel pattern appears to be unchanged. He is passing a scant amount of flatus at this time. We will continue to observe. 2. Severe peripheral vascular disease status post amputation per primary team. [id number]/[facility] #: [id number] [facility]
[2019-02-13] MEDS: Benzocaine/Menthol LOZ* 1 LOZENGE PO PRN (19:17)
[2019-02-13] MEDS: Insulin GLARGINE(*) 1 UNITS UNIT SUBCUT SCH (21:33)
[2019-02-14] MEDS: Vancomycin(*) 1,000 MG in NS 0.9% 250 ML* 250 ML IVPB SCH ×3 (01:12→14:30)
[2019-02-14] MEDS: metroNIDAZOLE IV 500 MG/100ML* 500 MG/100 ML BAG IVPB SCH ×3 (03:29→18:22)
[2019-02-14] MEDS ORDERED: Metoclopramide IV* 5 MG/ML 2 ML VIAL IV PRN (08:22)
--- NOTE | 2019-02-14 08:27 | PN ---
Subjective Date of Service: 02/14/19 Interval History: Pt c/o no abd pain or nausea. Requests to "eat something". Had an episode of U incontinence last night Family History: Unchanged from Admission Social History: Unchanged from Admission Past Medical History: Unchanged from Admission Objective Active Medications: Dextrose (D50w Syringe 50 Ml*) 12.5 gm IV PUSH .FOR FS < 60 - SS PRN PRN Reason: FS < 60 Enoxaparin Sodium (Lovenox(*)) 40 mg SUBCUT DAILY [facility] Last Admin: 02/13/19 08:07 Dose: 40 mg Famotidine (Pepcid Iv*) 20 mg IV SLOW PU DAILY [facility] Metronidazole/Sodium Chloride (Flagyl 500 Mg Ivpb*) 500 mg in 100 mls @ 100 mls /hr IVPB Q8H [facility] Last Admin: 02/14/19 03:29 Dose: 100 mls/hr Vancomycin HCl 1,000 mg/ (Sodium Chloride) 250 mls @ 166.667 mls/hr IVPB Q8H [facility] Last Admin: 02/14/19 01:12 Dose: 166.667 mls/hr Levofloxacin/Dextrose (Levaquin 500 Mg Ivpremix(*)) 500 mg in 100 mls @ 100 mls /hr IVPB Q48HR [facility]; Protocol Sodium Chloride (Ns 0.9% 1000 Ml) 1,000 mls @ 50 mls/hr IV .PER RATE [facility] Last Admin: 02/13/19 16:38 Dose: 50 mls/hr Insulin Glargine (Lantus(*)) 15 units SUBCUT BEDTIME [facility] Last Admin: 02/13/19 21:33 Dose: 15 units Insulin Human Lispro (Humalog*) 0 units SUBCUT AC [facility]; Protocol Last Admin: 02/13/19 16:12 Dose: Not Given Metoclopramide HCl (Reglan Iv*) 5 mg IV Q6H PRN PRN Reason: NAUSEA/VOMITING Pharmacy Consult (Vancomycin Per Pharmacy*) 1 note FOLLOW UP . PRN PRN Reason: PER PROTOCOL Pharmacy Profile Note (Vancomycin Trough Check) 1 note FOLLOW UP ONCE ONE Stop: 02/14/19 08:31 Throat Lozenges (Chloraseptic Sloan*) 1 sloan PO Q6H PRN PRN Reason: SORE THROAT Last Admin: 02/13/19 19:17 Dose: 1 sloan Vital Signs - 8 hr 02/14/19 02/14/19 03:26 07:21 Temperature 97.6 F 97.4 F Pulse Rate 88 84 Respiratory 17 17 Rate Blood Pressure 140/69 142/74 (mmHg) O2 Sat by Pulse 93 95 Oximetry Oxygen Devices in Use Now: None Appearance: 58 yo M in NAD, aAOx3 Eyes: No Scleral Icterus, PERRLA Ears/Nose/Mouth/Throat: NL Teeth, Lips, Gums, Mucous Membranes Moist Neck: NL Appearance and Movements; NL JVP, Trachea Midline Respiratory: Symmetrical Chest Expansion and Respiratory Effort, Clear to Auscultation Cardiovascular: NL Sounds; No Murmurs; No JVD, RRR Abdominal: - - distended, tympanic, BS+, NT Lymphatic: No Cervical Adenopathy Extremities: No Edema, No Clubbing, Cyanosis Skin: - - L BKA-dressings not removed, R TMA-healed Neurological: Alert and Oriented x 3, NL Muscle Strength and Tone Result Diagrams: 02/13/19 05:57 02/13/19 05:57 Microbiology and Other Data: Microbiology 02/10/19 13:51 Gram Stain - Final Leg Left Wound Culture - Preliminary No Growth Day 1 02/10/19 13:51 Anaerobic Culture - Preliminary Wound - Left Leg No Growth Day 1 Assess/Plan/Problems-Billing Assessment: Mr Maldonado is a 58yo M with PMH of morbid obesity with BMI 44, type 2 DM, CKD stage, PVD, HTN, depression, 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 Hospitalist service consulted for medical management of comorbidities. - Patient Problems (1) Gastric outlet obstruction Comment: acute, developed 02/13/19 Appreciate GI conult. Pt is requesting to restart diet. Pulled NG last night. CT not showing obstruction, but noted new c/w 2014 pulm nodules. will start clears for diet and Reglan prn. Awaitng GI f/u holding all PO meds, start IV PPI and gentle IVF (2) Status post below knee amputation of left lower extremity Comment: - Management as per Ortho. - Pain is controlled with oxycodone. - Patient is not interested in [facility] - PMRU evaluation. (3) Chronic kidney disease Comment: - CKD stage 2-3. - Creatinine pending today (4) Diabetes Comment: - A1c is 8. - Continue Lispro SS.Lantus lowered from 58 to 15 due to NPO status, will leave it at 15 when on clears (5) Osteomyelitis SNOMED Code(s): 27614581 Comment: - Cultures sent in the OR show no growth so far. - D/w Dr Walker, Dr Marti, and Dr Chamberlain - plan for Vancomycin, Levofloxacin , and Metronidazole for now. (6) Sepsis Comment: - Met sepsis criteria with tachycardia and leukocytosis 02/12/2019. - Source is likely stump infection/osteomyelitis. - UA and CxR are negative. - LA is normal, responded well to IVF. - Continue Vancomycin, Levofloxacin, and Metronidazole. - Continue to monitor. (7) HTN (hypertension) Comment: - Controlled. - Continue Amlodpine and Lisinopril. (8) Hyponatremia Comment: improved with IVF , awaiting today's labs (9) DVT prophylaxis Comment: - Lovenox Status and Disposition: Hospitalist service will continue to follow daily
[2019-02-14] MEDS ORDERED: Vancomycin Trough Check NOTE FOLLOW UP ONE (08:30)
[2019-02-14] MEDS ORDERED: Pantoprazole IV* 40 MG IV SCH (09:00)
[2019-02-14] MEDS ORDERED: Famotidine IV * 20 MG in NS 0.9% 100 ML* 100 ML IVPB SCH (09:00)
[2019-02-14 09:02] LABS: ABS Basophils 0.1 10^3/ul (0-0.2); ABS Eosinophils 0.6 10^3/ul (0-0.6); ABS Lymphocytes 1.1 10^3/ul (1.0-4.8); ABS Monocytes 1.4 10^3/ul (0-0.8); ABS Neutrophils 11.6 10^3/ul (1.5-7.7); Eosinophil % 4.1 %; Hematocrit 31 % (42-52); Hemoglobin 9.7 g/dL (14.0-18.0); Lymphocyte % 7.3 %; Mean Corpuscular HGB Conc 31 g/dL (31-36); Mean Corpuscular Hemoglobin 21 pg (27-31); Mean Corpuscular Volume 68 fL (80-94); Mean Platelet Volume 7.3 fL (7.4-10.4); Nucleated Red Blood Cells % 0.1; Platelet Count 397 10^3/uL (150-450); Red Blood Count 4.59 10^6 /uL (4.18-5.48); Red Cell Distribution Width 22 % (10-15); White Blood Count 14.8 10^3/uL (3.5-10.8)
[2019-02-14 09:08] LABS: BUN/Creatinine Ratio 28.5 (8-20); Calcium 9.1 mg/dL (8.6-10.3); EGFR African American 55.2 (>60); EGFR Non-African American 45.6 (>60); Magnesium 2.3 mg/dL (1.9-2.7); Potassium 4.8 mmol/L (3.5-5.0)
[2019-02-14] MEDS: Insulin LISPRO* 1 UNITS UNIT SUBCUT SCH ×4 (09:34→18:22)
[2019-02-14] MEDS: amLODIPine TAB* 5 MG PO SCH (09:53)
[2019-02-14] MEDS: Famotidine IV* 10 MG/ML 2 ML (20 mg) IV SLOW PU SCH (09:53)
[2019-02-14] MEDS: Levofloxacin 500 MG IVPREMIX(* 500 MG/100 ML BAG IVPB SCH (09:53)
[2019-02-14] MEDS: Enoxaparin(*) 40 MG/0.4 ML SYR SUBCUT SCH (09:53)
[2019-02-14] MEDS: Lisinopril TAB* 5 MG PO SCH (09:54)
--- NOTE | 2019-02-14 10:58 | PN ---
Progress Note - Progress Note Date of Service: 02/14/19 SOAP: Subjective: []Patient seen OOB in chair. In good spirits, diet advanced to clears. He states the nausea and vomiting thus far have resolved. He offers no other complaints. Objective: [] Vital Signs Temp 97.4 F 02/14/19 07:21 Pulse 84 02/14/19 07:21 Resp 17 02/14/19 07:21 BP 142/74 02/14/19 07:21 Pulse Ox 95 02/14/19 07:21 Intake & Output 02/13/19 02/14/19 02/14/19 18:59 06:59 18:59 Intake Total 893 105 720 Output Total 670 475 Balance 223 -370 720 Intake: IV Fluids 53 105 ABX - FLAGYL 105 NS (0.9%) 53 IVPB 100 ABX - FLAGYL 100 Oral 240 0 720 NG Tube Irrigate Amount 500 Output: Urine 400 475 Emesis 270 Other: Estimated Void Small # Voids 3 Laboratory Results - last 24 hr 02/13/19 02/13/19 02/13/19 12:23 17:17 20:30 WBC RBC Hgb Hct MCV MCH MCHC RDW Plt Count MPV Neut % (Auto) Lymph % (Auto) Alfalfa % (Auto) Eos % (Auto) Baso % (Auto) Absolute Neuts (auto) Absolute Lymphs (auto) Absolute Monos (auto) Absolute Eos (auto) Absolute Basos (auto) Absolute Nucleated RBC Nucleated RBC % Sodium Potassium Chloride Carbon Dioxide Anion Gap BUN Creatinine Est GFR ( Amer) Est GFR (Non-Af Amer) BUN/Creatinine Ratio Glucose POC Glucose (mg/dL) 181 H 172 H 173 H Calcium Magnesium Vancomycin Trough 02/14/19 02/14/19 02/14/19 07:52 08:27 08:27 WBC 14.8 H RBC 4.59 Hgb 9.7 L Hct 31 L MCV 68 L MCH 21 L MCHC 31 RDW 22 H Plt Count 397 MPV 7.3 L Neut % (Auto) 78.5 Lymph % (Auto) 7.3 Alfalfa % (Auto) 9.7 Eos % (Auto) 4.1 Baso % (Auto) 0.4 Absolute Neuts (auto) 11.6 H Absolute Lymphs (auto) 1.1 Absolute Monos (auto) 1.4 H Absolute Eos (auto) 0.6 Absolute Basos (auto) 0.1 Absolute Nucleated RBC 0.0 Nucleated RBC % 0.1 Sodium Potassium Chloride Carbon Dioxide Anion Gap BUN Creatinine Est GFR ( Amer) Est GFR (Non-Af Amer) BUN/Creatinine Ratio Glucose POC Glucose (mg/dL) 154 H Calcium Magnesium Vancomycin Trough 23.4 02/14/19 08:27 WBC RBC Hgb Hct MCV MCH MCHC RDW Plt Count MPV Neut % (Auto) Lymph % (Auto) Alfalfa % (Auto) Eos % (Auto) Baso % (Auto) Absolute Neuts (auto) Absolute Lymphs (auto) Absolute Monos (auto) Absolute Eos (auto) Absolute Basos (auto) Absolute Nucleated RBC Nucleated RBC % Sodium 132 L Potassium 4.8 Chloride 101 Carbon Dioxide 24 Anion Gap 7 BUN 45 H Creatinine 1.58 H Est GFR ( Amer) 55.2 Est GFR (Non-Af Amer) 45.6 BUN/Creatinine Ratio 28.5 H Glucose 153 H POC Glucose (mg/dL) Calcium 9.1 Magnesium 2.3 Vancomycin Trough LE stump is clean dry and intact Assessment: []s/ p BKA LLE POD #4 Probable gastric outlet obstruction- improving- appreciate GI consult Plan: []Advance diet per Dr. Ocasio/ GI service recommendations Continue with Vanco, Levofloxicin, Metronidazole Await SNF rehab bed
[2019-02-14] MEDS: Insulin GLARGINE(*) 1 UNITS UNIT SUBCUT SCH (21:24)
[2019-02-15] MEDS: NS 0.9% 1000 ML** 1,000 ML IV SCH ×2 (00:03→00:05)
[2019-02-15] MEDS: Vancomycin(*) 1,000 MG in NS 0.9% 250 ML* 250 ML IVPB SCH ×2 (02:13→13:52)
[2019-02-15] MEDS: metroNIDAZOLE IV 500 MG/100ML* 500 MG/100 ML BAG IVPB SCH ×3 (04:34→18:24)
[2019-02-15] MEDS: Benzocaine/Menthol LOZ* 1 LOZENGE PO PRN (04:52)
--- NOTE | 2019-02-15 08:46 | PN ---
Subjective Date of Service: 02/15/19 Interval History: Pt has no problems with soft diet . Has not had a BM x 6 days but refuses laxatives. Denies abd pain Family History: Unchanged from Admission Social History: Unchanged from Admission Past Medical History: Unchanged from Admission Objective Active Medications: Amlodipine Besylate (Norvasc Tab*) 5 mg PO DAILY [facility] Last Admin: 02/14/19 09:53 Dose: 5 mg Dextrose (D50w Syringe 50 Ml*) 12.5 gm IV PUSH .FOR FS < 60 - SS PRN PRN Reason: FS < 60 Enoxaparin Sodium (Lovenox(*)) 40 mg SUBCUT DAILY [facility] Last Admin: 02/14/19 09:53 Dose: 40 mg Famotidine (Pepcid Iv*) 20 mg IV SLOW PU DAILY [facility] Last Admin: 02/14/19 09:53 Dose: 20 mg Metronidazole/Sodium Chloride (Flagyl 500 Mg Ivpb*) 500 mg in 100 mls @ 100 mls /hr IVPB Q8H [facility] Last Admin: 02/15/19 04:34 Dose: 100 mls/hr Levofloxacin/Dextrose (Levaquin 500 Mg Ivpremix(*)) 500 mg in 100 mls @ 100 mls /hr IVPB Q48HR [facility]; Protocol Last Admin: 02/14/19 09:53 Dose: 100 mls/hr Sodium Chloride (Ns 0.9% 1000 Ml) 1,000 mls @ 50 mls/hr IV .PER RATE [facility] Last Admin: 02/15/19 00:05 Dose: 50 mls/hr Vancomycin HCl 1,000 mg/ (Sodium Chloride) 250 mls @ 166.667 mls/hr IVPB Q12H [facility] Last Admin: 02/15/19 02:13 Dose: 166.667 mls/hr Insulin Glargine (Lantus(*)) 15 units SUBCUT BEDTIME [facility] Last Admin: 02/14/19 21:24 Dose: 15 units Insulin Human Lispro (Humalog*) 0 units SUBCUT AC [facility]; Protocol Last Admin: 02/14/19 18:22 Dose: 7 unit Lisinopril (Prinivil Tab*) 5 mg PO DAILY [facility] Last Admin: 02/14/19 09:54 Dose: 5 mg Metoclopramide HCl (Reglan Iv*) 5 mg IV Q6H PRN PRN Reason: NAUSEA/VOMITING Pharmacy Consult (Vancomycin Per Pharmacy*) 1 note FOLLOW UP . PRN PRN Reason: PER PROTOCOL Pharmacy Profile Note (Vancomycin Trough Check) 1 note FOLLOW UP 1330 ONE Stop: 02/16/19 13:31 Throat Lozenges (Chloraseptic Sloan*) 1 sloan PO Q6H PRN PRN Reason: SORE THROAT Last Admin: 02/15/19 04:52 Dose: 1 sloan Vital Signs - 8 hr 02/15/19 02/15/19 03:32 08:05 Temperature 97.9 F 97.4 F Pulse Rate 73 74 Respiratory 20 18 Rate Blood Pressure 137/76 137/76 (mmHg) O2 Sat by Pulse 96 95 Oximetry Oxygen Devices in Use Now: None Appearance: 58 yo m in nAD, aAOx3 Eyes: No Scleral Icterus, PERRLA Ears/Nose/Mouth/Throat: NL Teeth, Lips, Gums, Mucous Membranes Moist Neck: NL Appearance and Movements; NL JVP Respiratory: Symmetrical Chest Expansion and Respiratory Effort, Clear to Auscultation Cardiovascular: NL Sounds; No Murmurs; No JVD, RRR Abdominal: - - distended, tympanic, soft, NT, BS+ Lymphatic: No Cervical Adenopathy Extremities: No Clubbing, Cyanosis, - - left leg stump covered with post op dressings Result Diagrams: 02/14/19 08:27 02/14/19 08:27 Microbiology and Other Data: Microbiology 02/10/19 13:51 Gram Stain - Final Leg Left Wound Culture - Preliminary No Growth Day 1 02/10/19 13:51 Anaerobic Culture - Preliminary Wound - Left Leg No Growth Day 1 Assess/Plan/Problems-Billing Assessment: Mr Maldonado is a 58yo M with PMH of morbid obesity with BMI 44, type 2 DM, CKD stage, PVD, HTN, depression, 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 Hospitalist service consulted for medical management of comorbidities. - Patient Problems (1) Gastric outlet obstruction Comment: acute, developed 02/13/19 Appreciate GI consult. Pt pulled NG 02/13/19, requested to to restart diet .So fra doing firn but has had no BM x 6 days and refuses to take any laxatives. CT showing non obstruction, but noted new c/w 2014 pulm nodules. (2) Status post below knee amputation of left lower extremity Comment: - Management as per Ortho. - Pain is controlled with oxycodone. - Patient is not interested in [facility] - PMRU evaluation. (3) Chronic kidney disease Comment: - CKD stage 2-3. - Creatinine at baseline (4) Diabetes Comment: - A1c is 8. - Continue Lispro SS.Lantus lowered from 58 to 15 due to NPO status 02/13, will leave it at 15 when on soft diet (5) Osteomyelitis SNOMED Code(s): 56682906 Comment: - Cultures sent in the OR show no growth so far. - D/w Dr Walker, Dr Marti, and Dr Chamberlain - plan for Vancomycin, Levofloxacin , and Metronidazole for now. (6) Sepsis Comment: - Met sepsis criteria with tachycardia and leukocytosis 02/12/2019. - Source is likely stump infection/osteomyelitis. - UA and CxR are negative. - LA is normal, responded well to IVF. - Continue Vancomycin, Levofloxacin, and Metronidazole. - Continue to monitor. (7) HTN (hypertension) Comment: - Controlled. - Continue Amlodpine and Lisinopril. (8) Hyponatremia Comment: improved with IVF (9) DVT prophylaxis Comment: - Lovenox Status and Disposition: Hospitalist service will continue to follow daily
[2019-02-15] MEDS: Famotidine IV* 10 MG/ML 2 ML (20 mg) IV SLOW PU SCH (09:20)
[2019-02-15] MEDS: amLODIPine TAB* 5 MG PO SCH (09:28)
[2019-02-15] MEDS: Lisinopril TAB* 5 MG PO SCH (09:28)
[2019-02-15] MEDS: Insulin LISPRO* 1 UNITS UNIT SUBCUT SCH ×3 (09:28→17:40)
[2019-02-15] MEDS: Enoxaparin(*) 40 MG/0.4 ML SYR SUBCUT SCH (09:28)
--- NOTE | 2019-02-15 10:21 | PN ---
Progress Note - Progress Note Date of Service: 02/15/19 SOAP: Subjective: [Pt reports pain manageable with po meds. Denies cp, sob, nausea. Has not had a bowel movement for several days - being followed by medicine/GI.] Objective: [A and O x 3, NAD. Seated in chair L LE stump dressing C/D/I Vital Signs: Temp Pulse Resp BP Pulse Ox 97.4 F 74 18 137/76 95 02/15/19 08:05 02/15/19 08:05 02/15/19 08:05 02/15/19 08:05 02/15/19 08:05 Laboratory Results - last 24 hr 02/14/19 02/14/19 02/14/19 11:49 17:35 20:56 POC Glucose (mg/dL) 220 H 138 H 192 H 02/15/19 08:19 POC Glucose (mg/dL) 155 H ] Assessment: [s/p BKA LLE POD #5 Possible gastric outlet obstruction - being followed by medicine] Plan: [Con't with Vanco, levofloxacin, metronidazole Await SNF rehab bed]
[2019-02-15] MEDS ORDERED: oxyCODONE TAB* 5 MG TAB PO PRN (19:08)
[2019-02-15] MEDS: oxyCODONE TAB* 5 MG TAB PO PRN (19:17)
[2019-02-15] MEDS: Insulin GLARGINE(*) 1 UNITS UNIT SUBCUT SCH (21:29)
[2019-02-16] MEDS: Vancomycin(*) 1,000 MG in NS 0.9% 250 ML* 250 ML IVPB SCH ×2 (01:33→15:13)
[2019-02-16] MEDS: metroNIDAZOLE IV 500 MG/100ML* 500 MG/100 ML BAG IVPB SCH ×3 (04:35→18:36)
[2019-02-16] MEDS: NS 0.9% 1000 ML** 1,000 ML IV SCH (04:37)
[2019-02-16 05:07] LABS: ABS Basophils 0.1 10^3/ul (0-0.2); ABS Eosinophils 0.6 10^3/ul (0-0.6); ABS Lymphocytes 1.4 10^3/ul (1.0-4.8); ABS Monocytes 1.1 10^3/ul (0-0.8); Eosinophil % 6.2 %; Hematocrit 29 % (42-52); Hemoglobin 9.3 g/dL (14.0-18.0); Lymphocyte % 13.9 %; Mean Corpuscular HGB Conc 32 g/dL (31-36); Mean Corpuscular Hemoglobin 22 pg (27-31); Mean Corpuscular Volume 68 fL (80-94); Mean Platelet Volume 6.7 fL (7.4-10.4); Nucleated Red Blood Cells % 0.2; Platelet Count 358 10^3/uL (150-450); Red Cell Distribution Width 22 % (10-15); White Blood Count 10.2 10^3/uL (3.5-10.8)
[2019-02-16 05:18] LABS: BUN/Creatinine Ratio 19.2 (8-20); Calcium 8.9 mg/dL (8.6-10.3); EGFR African American 72.3 (>60); EGFR Non-African American 59.7 (>60); Potassium 4.5 mmol/L (3.5-5.0)
--- NOTE | 2019-02-16 08:43 | PN ---
Subjective Date of Service: 02/16/19 Interval History: Pt feels well, denies abd pain. Had a large BM last night Family History: Unchanged from Admission Social History: Unchanged from Admission Past Medical History: Unchanged from Admission Objective Active Medications: Amlodipine Besylate (Norvasc Tab*) 5 mg PO DAILY [facility] Last Admin: 02/15/19 09:28 Dose: 5 mg Dextrose (D50w Syringe 50 Ml*) 12.5 gm IV PUSH .FOR FS < 60 - SS PRN PRN Reason: FS < 60 Enoxaparin Sodium (Lovenox(*)) 40 mg SUBCUT DAILY [facility] Last Admin: 02/15/19 09:28 Dose: 40 mg Metronidazole/Sodium Chloride (Flagyl 500 Mg Ivpb*) 500 mg in 100 mls @ 100 mls /hr IVPB Q8H [facility] Last Admin: 02/16/19 04:35 Dose: 100 mls/hr Levofloxacin/Dextrose (Levaquin 500 Mg Ivpremix(*)) 500 mg in 100 mls @ 100 mls /hr IVPB Q48HR [facility]; Protocol Last Admin: 02/14/19 09:53 Dose: 100 mls/hr Sodium Chloride (Ns 0.9% 1000 Ml) 1,000 mls @ 50 mls/hr IV .PER RATE [facility] Last Admin: 02/16/19 04:37 Dose: 50 mls/hr Vancomycin HCl 1,000 mg/ (Sodium Chloride) 250 mls @ 166.667 mls/hr IVPB Q12H [facility] Last Admin: 02/16/19 01:33 Dose: 166.667 mls/hr Insulin Glargine (Lantus(*)) 15 units SUBCUT BEDTIME [facility] Last Admin: 02/15/19 21:29 Dose: 15 units Insulin Human Lispro (Humalog*) 0 units SUBCUT AC [facility]; Protocol Last Admin: 02/15/19 17:40 Dose: 7 unit Lisinopril (Prinivil Tab*) 5 mg PO DAILY [facility] Last Admin: 02/15/19 09:28 Dose: 5 mg Metoclopramide HCl (Reglan Iv*) 5 mg IV Q6H PRN PRN Reason: NAUSEA/VOMITING Oxycodone HCl (Roxycodone Tab*) 5 mg PO Q4H PRN PRN Reason: PAIN - MILD Oxycodone HCl (Roxycodone Tab*) 10 mg PO Q6H PRN PRN Reason: PAIN - SEVERE Last Admin: 02/15/19 19:17 Dose: 10 mg Pharmacy Consult (Vancomycin Per Pharmacy*) 1 note FOLLOW UP . PRN PRN Reason: PER PROTOCOL Pharmacy Profile Note (Vancomycin Trough Check) 1 note FOLLOW UP 1330 ONE Stop: 02/16/19 13:31 Throat Lozenges (Chloraseptic Sloan*) 1 sloan PO Q6H PRN PRN Reason: SORE THROAT Last Admin: 02/15/19 04:52 Dose: 1 sloan Vital Signs - 8 hr 02/16/19 07:48 Temperature 97.7 F Pulse Rate 76 Respiratory 18 Rate Blood Pressure 146/71 (mmHg) O2 Sat by Pulse 94 Oximetry Oxygen Devices in Use Now: None Appearance: 58 yo M in nAD, aAOx3 Eyes: No Scleral Icterus, PERRLA Ears/Nose/Mouth/Throat: NL Teeth, Lips, Gums, Mucous Membranes Moist Neck: NL Appearance and Movements; NL JVP, Trachea Midline Respiratory: Symmetrical Chest Expansion and Respiratory Effort, Clear to Auscultation Cardiovascular: NL Sounds; No Murmurs; No JVD, RRR Abdominal: NL Sounds; No Tenderness; No Distention Lymphatic: No Cervical Adenopathy Extremities: No Clubbing, Cyanosis, - - s/p left foot amputation-stump healed well.s/p L BKA-stump in post op dressings-not removed Skin: No Nodules or Sclerosis Neurological: Alert and Oriented x 3, NL Muscle Strength and Tone Result Diagrams: 02/16/19 04:39 02/16/19 04:39 Microbiology and Other Data: Microbiology 02/10/19 13:51 Gram Stain - Final Leg Left Wound Culture - Preliminary No Growth Day 1 02/10/19 13:51 Anaerobic Culture - Preliminary Wound - Left Leg No Growth Day 1 Assess/Plan/Problems-Billing Assessment: Mr Maldonado is a 58yo M with PMH of morbid obesity with BMI 44, type 2 DM, CKD stage, PVD, HTN, depression, 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 Hospitalist service consulted for medical management of comorbidities. - Patient Problems (1) Gastric outlet obstruction Comment: acute, developed 02/13/19-resolved. Appreciate GI consult. Pt pulled NG 02/13/19, requested to to restart diet . CT showing non obstruction, but noted new c/w 2014 pulm nodules. Pt is aware of need of CT in 3-6 months(of chest) to document lung nodules stability (2) Status post below knee amputation of left lower extremity Comment: - Management as per Ortho. - Pain is controlled with oxycodone. - Patient is not interested in [facility] evaluation. (3) Chronic kidney disease Comment: - CKD stage 2-3. - Creatinine at baseline (4) Diabetes Comment: - A1c is 8. - Continue Lispro SS.Lantus lowered from 58 (home dose)to 15 due to NPO status 02/13, now BG<200 on current Lantus 15 U-will cont (5) Osteomyelitis SNOMED Code(s): 18290975 Comment: - Cultures sent in the OR show no growth so far. - D/w Dr Walker, Dr Marti, and Dr Chamberlain - plan for Vancomycin, Levofloxacin , and Metronidazole for now. (6) Sepsis Comment: - Met sepsis criteria with tachycardia and leukocytosis 02/12/2019. - Source is likely stump infection/osteomyelitis. - UA and CxR are negative. - LA is normal, responded well to IVF. - Continue Vancomycin, Levofloxacin, and Metronidazole. - Continue to monitor. (7) HTN (hypertension) Comment: - Controlled. - Continue Amlodpine and Lisinopril. (8) Hyponatremia Comment: resolved with IVF (9) DVT prophylaxis Comment: - Lovenox Status and Disposition: Hospitalist service will continue to follow daily
[2019-02-16] MEDS: Enoxaparin(*) 40 MG/0.4 ML SYR SUBCUT SCH (08:52)
[2019-02-16] MEDS: Insulin LISPRO* 1 UNITS UNIT SUBCUT SCH ×3 (08:52→17:55)
[2019-02-16] MEDS: Lisinopril TAB* 5 MG PO SCH (08:54)
[2019-02-16] MEDS: Levofloxacin 500 MG IVPREMIX(* 500 MG/100 ML BAG IVPB SCH (08:54)
[2019-02-16] MEDS: amLODIPine TAB* 5 MG PO SCH (08:54)
--- NOTE | 2019-02-16 09:33 | PN ---
Progress Note - Progress Note Date of Service: 02/16/19 SOAP: Subjective: [Pt reports doing well. Had some pain issues last night after getting up to have a BM (which he hadn't had in several days). Pain managed with oxycodone ordered by me by phone last night. Today denies pain, SOB, CP. Was seen by Dr. Walker earlier this morning.] Objective: [A and O x 3, NAD L leg stump dressing C/D I Vital Signs: Temp Pulse Resp BP Pulse Ox 97.7 F 76 18 146/71 94 02/16/19 07:48 02/16/19 07:48 02/16/19 07:48 02/16/19 07:48 02/16/19 07:48 Laboratory Results - last 24 hr 02/15/19 02/15/19 02/15/19 12:10 17:19 20:51 WBC RBC Hgb Hct MCV MCH MCHC RDW Plt Count MPV Neut % (Auto) Lymph % (Auto) [place] % (Auto) Eos % (Auto) Baso % (Auto) Absolute Neuts (auto) Absolute Lymphs (auto) Absolute Monos (auto) Absolute Eos (auto) Absolute Basos (auto) Absolute Nucleated RBC Nucleated RBC % Sodium Potassium Chloride Carbon Dioxide Anion Gap BUN Creatinine Est GFR ( Amer) Est GFR (Non-Af Amer) BUN/Creatinine Ratio Glucose POC Glucose (mg/dL) 155 H 168 H 186 H Calcium 02/16/19 02/16/19 04:39 04:39 WBC 10.2 RBC 4.30 Hgb 9.3 L Hct 29 L MCV 68 L MCH 22 L MCHC 32 RDW 22 H Plt Count 358 MPV 6.7 L Neut % (Auto) 68.8 Lymph % (Auto) 13.9 [place] % (Auto) 10.6 Eos % (Auto) 6.2 Baso % (Auto) 0.5 Absolute Neuts (auto) 7.0 Absolute Lymphs (auto) 1.4 Absolute Monos (auto) 1.1 H Absolute Eos (auto) 0.6 Absolute Basos (auto) 0.1 Absolute Nucleated RBC 0.0 Nucleated RBC % 0.2 Sodium 135 Potassium 4.5 Chloride 103 Carbon Dioxide 25 Anion Gap 7 BUN 24 Creatinine 1.25 H Est GFR ( Amer) 72.3 Est GFR (Non-Af Amer) 59.7 BUN/Creatinine Ratio 19.2 Glucose 140 H POC Glucose (mg/dL) Calcium 8.9 ] Assessment: [s/p BKA LLE POD #6] Plan: [Con't abx - vanco, levo, metro Dressing change tomorrow by Dr. Walker Awaiting SNF rehab bed]
[2019-02-16] MEDS ORDERED: Vancomycin Trough Check NOTE FOLLOW UP ONE (13:30)
[2019-02-16] MEDS: Insulin GLARGINE(*) 1 UNITS UNIT SUBCUT SCH (21:09)
[2019-02-17] MEDS: Vancomycin(*) 1,000 MG in NS 0.9% 250 ML* 250 ML IVPB SCH (01:31)
[2019-02-17] MEDS: metroNIDAZOLE IV 500 MG/100ML* 500 MG/100 ML BAG IVPB SCH ×2 (03:21→10:58)
[2019-02-17] MEDS ORDERED: Polyethylene Glycol 3350* 17 GM PACKET PO PRN (07:48)
[2019-02-17] MEDS ORDERED: Senna TAB PO PRN (07:48)
[2019-02-17] MEDS ORDERED: Magnesium Hydroxide LIQ* 30 ML UDC PO PRN (07:48)
[2019-02-17] MEDS ORDERED: Bisacodyl SUPP* 10 MG SUPP PR PRN (07:48)
--- NOTE | 2019-02-17 07:54 | PN ---
Subjective Date of Service: 02/17/19 Interval History: pt vomited twice and had been belching. denies abd pain. Has had 2 small BM's in the past 24H Family History: Unchanged from Admission Social History: Unchanged from Admission Past Medical History: Unchanged from Admission Objective Active Medications: Amlodipine Besylate (Norvasc Tab*) 5 mg PO DAILY [facility] Last Admin: 02/16/19 08:54 Dose: 5 mg Bisacodyl (Dulcolax Supp*) 10 mg RI ONCE ONE Stop: 02/17/19 07:49 Bisacodyl (Dulcolax Supp*) 10 mg RI DAILY PRN PRN Reason: CONSTIPATION Dextrose (D50w Syringe 50 Ml*) 12.5 gm IV PUSH .FOR FS < 60 - SS PRN PRN Reason: FS < 60 Docusate Sodium (Colace Cap*) 100 mg PO BID [facility] Enoxaparin Sodium (Lovenox(*)) 40 mg SUBCUT DAILY [facility] Last Admin: 02/16/19 08:52 Dose: 40 mg Metronidazole/Sodium Chloride (Flagyl 500 Mg Ivpb*) 500 mg in 100 mls @ 100 mls /hr IVPB Q8H [facility] Last Admin: 02/17/19 03:21 Dose: 100 mls/hr Levofloxacin/Dextrose (Levaquin 500 Mg Ivpremix(*)) 500 mg in 100 mls @ 100 mls /hr IVPB Q48HR [facility]; Protocol Last Admin: 02/16/19 08:54 Dose: 100 mls/hr Vancomycin HCl 1,000 mg/ (Sodium Chloride) 250 mls @ 166.667 mls/hr IVPB Q12H [facility] Last Admin: 02/17/19 01:31 Dose: 166.667 mls/hr Insulin Glargine (Lantus(*)) 15 units SUBCUT BEDTIME [facility] Last Admin: 02/16/19 21:09 Dose: 15 units Insulin Human Lispro (Humalog*) 0 units SUBCUT AC [facility]; Protocol Last Admin: 02/16/19 17:55 Dose: 3 unit Lisinopril (Prinivil Tab*) 5 mg PO DAILY [facility] Last Admin: 02/16/19 08:54 Dose: 5 mg Magnesium Hydroxide (Milk Of Magnesia Liq*) 30 ml PO BID [facility] Magnesium Hydroxide (Milk Of Magnesia Liq*) 30 ml PO BID PRN PRN Reason: CONSTIPATION Metoclopramide HCl (Reglan Iv*) 5 mg IV Q6H PRN PRN Reason: NAUSEA/VOMITING Last Admin: 02/17/19 03:25 Dose: 5 mg Oxycodone HCl (Roxycodone Tab*) 5 mg PO Q4H PRN PRN Reason: PAIN - MILD Oxycodone HCl (Roxycodone Tab*) 10 mg PO Q6H PRN PRN Reason: PAIN - SEVERE Last Admin: 02/15/19 19:17 Dose: 10 mg Pharmacy Consult (Vancomycin Per Pharmacy*) 1 note FOLLOW UP . PRN PRN Reason: PER PROTOCOL Polyethylene Glycol/Electrolytes (Miralax*) 17 gm PO DAILY PRN PRN Reason: CONSTIPATION Senna (Senokot Tab*) 1 tab PO BEDTIME PRN PRN Reason: CONSTIPATION Throat Lozenges (Chloraseptic Sloan*) 1 sloan PO Q6H PRN PRN Reason: SORE THROAT Last Admin: 02/15/19 04:52 Dose: 1 sloan Vital Signs - 8 hr 02/17/19 03:31 Temperature 97.7 F Pulse Rate 83 Respiratory 18 Rate Blood Pressure 170/77 (mmHg) O2 Sat by Pulse 94 Oximetry Oxygen Devices in Use Now: None Appearance: 58 yo M in nAD, aAOx3 Eyes: No Scleral Icterus, PERRLA Ears/Nose/Mouth/Throat: NL Teeth, Lips, Gums, Mucous Membranes Moist Neck: NL Appearance and Movements; NL JVP, Trachea Midline Respiratory: Symmetrical Chest Expansion and Respiratory Effort, Clear to Auscultation Cardiovascular: NL Sounds; No Murmurs; No JVD, RRR Abdominal: - - distendedm large, tympanic, soft, NT, BS+ Extremities: No Clubbing, Cyanosis, - - trace left LE edema. left stump in post op dressings. R leg stump healed Neurological: Alert and Oriented x 3, NL Muscle Strength and Tone Result Diagrams: 02/16/19 04:39 02/16/19 04:39 Microbiology and Other Data: Microbiology 02/10/19 13:51 Gram Stain - Final Leg Left Wound Culture - Preliminary No Growth Day 1 02/10/19 13:51 Anaerobic Culture - Preliminary Wound - Left Leg No Growth Day 1 Assess/Plan/Problems-Billing Assessment: Mr Maldonado is a 58yo M with PMH of morbid obesity with BMI 44, type 2 DM, CKD stage, PVD, HTN, depression, 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 Hospitalist service consulted for medical management of comorbidities. - Patient Problems (1) Gastric outlet obstruction Comment: acute, developed 02/13/19-resolved. Today pt started vomiting again. Had been refusing laxatives up till today. will start bowel meds and give a suppository Appreciate GI consult. Pt pulled NG 02/13/19, requested to to restart diet . CT showing non obstruction, but noted new c/w 2013 pulm nodules. Pt is aware of need of CT in 3-6 months(of chest) to document lung nodules stability (2) Status post below knee amputation of left lower extremity Comment: - Management as per Ortho. - Pain is controlled with oxycodone. - Patient is not interested in DAR - PMRU evaluation pending. (3) Chronic kidney disease Comment: - CKD stage 2-3. - Creatinine at baseline (4) Diabetes Comment: - A1c is 8. - Continue Lispro SS.Lantus lowered from 58 (home dose)to 15 due to NPO status 02/13, now BG<200 on current Lantus 15 U-will cont (5) Osteomyelitis SNOMED Code(s): 58939024 Comment: - Cultures sent in the OR show no growth so far. - D/w Dr Walker, Dr Marti, and Dr Chamberlain - plan for Vancomycin, Levofloxacin , and Metronidazole for now. (6) Sepsis Comment: - Met sepsis criteria with tachycardia and leukocytosis 02/12/2019. - Source is likely stump infection/osteomyelitis. - UA and CxR are negative. - LA is normal, responded well to IVF. - Continue Vancomycin, Levofloxacin, and Metronidazole. - Continue to monitor. (7) HTN (hypertension) Comment: - Controlled. - Continue Amlodpine and Lisinopril. (8) Hyponatremia Comment: resolved with IVF (9) DVT prophylaxis Comment: - Lovenox (10) Microcytic anemia Comment: chronic will check iron and TIBC to eval further Status and Disposition: Hospitalist service will continue to follow daily
[2019-02-17] MEDS: Docusate CAP* 100 MG PO SCH ×2 (08:24→21:06)
[2019-02-17] MEDS: amLODIPine TAB* 5 MG PO SCH (08:25)
[2019-02-17] MEDS: Bisacodyl SUPP* 10 MG SUPP PR ONE ×2 (08:25→08:40)
[2019-02-17] MEDS: Enoxaparin(*) 40 MG/0.4 ML SYR SUBCUT SCH (08:25)
[2019-02-17] MEDS: Lisinopril TAB* 5 MG PO SCH (08:25)
[2019-02-17] MEDS: Magnesium Hydroxide LIQ* 30 ML UDC PO SCH ×2 (08:25→21:06)
[2019-02-17] MEDS ORDERED: hydrALAZINE IV* 20 MG/ML VIAL IV SLOW PU PRN (08:42)
[2019-02-17] MEDS: Insulin LISPRO* 1 UNITS UNIT SUBCUT SCH ×3 (09:30→19:27)
[2019-02-17 09:38] LABS: % Iron Saturation 9 % (15-55); Iron 28 ug/dL (50-212); Total Iron Binding Capacity 311 mcg/dL (250-450); Transferrin 222 mg/dL (203-362)
[2019-02-17] MEDS: oxyCODONE TAB* 5 MG TAB PO PRN ×2 (10:58→17:29)
--- NOTE | 2019-02-17 11:02 | PN ---
PROGRESS NOTE: DATE OF VISIT: 02/17/19 HISTORY OF PRESENT ILLNESS: Seng has been here now since his amputation below knee left side 10 days ago. He is feeling better today, having had a bowel movement, responding to the Milk of Magnesia. I have changed the stump dressing left side and it is much improved. The wound is clean and dry and the ecchymosis is changing color appropriate for a hematoma rather than an infection , so I think that the stump is doing well. He also has been afebrile and his blood work is fairly stable. His white blood count has come down nicely from 16 to 10.2 and his glucose is fairly well controlled in the mid 100s. Seng needs to continue with an aggressive bowel program, nonweightbearing, left side. We are hoping that [facility] can admit him because he is an excellent rehab candidate. [id number]/[facility] #: [id number] ED
--- NOTE | 2019-02-17 11:23 | PN ---
Progress Note - Progress Note Date of Service: 02/17/19 SOAP: Subjective: CC: Left foot infection HPI: Mr. Maldonado is a 58 yo male with PMH significant for chronic left foot osteomyelitis, CKD stage 2, DM2 with diabetic neuropathy, morbid obesity PVD, depression, HLD; who presented to the hospital with a left LE infection and is s /p a left BKA. Denies fever, chills, nausea, diarrhea. He reports moving his bowels once daily for the last 3 days, but prior to that had not moved his bowels for 6 days. He reports an episode of vomiting this AM and last evening. Reports passing flatus. Objective: Vital Signs - 8 hr 02/17/19 02/17/19 02/17/19 03:31 08:00 08:01 Temperature 97.7 F 98.4 F Pulse Rate 83 84 Respiratory 18 20 Rate Blood Pressure 170/77 180/92 (mmHg) O2 Sat by Pulse 94 94 94 Oximetry Physical Exam: General: NAD, sitting up in a chair Neurological: Alert and Oriented x 4 HEENT: No thrush, moist MM Cardiovascular: Heart rate regular Respiratory: Lung sounds clear, diminished bilateral Abdominal: Bowel sounds, hypoactive; ABD soft, large and non tender Skin: Dressing to left stump, no erythema surrounding. No rash Laboratory Last Values WBC 10.2 10^3/uL (3.5-10.8) 02/16/19 04:39 RBC 4.30 10^6 /uL (4.18-5.48) 02/16/19 04:39 Hgb 9.3 g/dL (14.0-18.0) L 02/16/19 04:39 Hct 29 % (42-52) L 02/16/19 04:39 MCV 68 fL (80-94) L 02/16/19 04:39 MCH 22 pg (27-31) L 02/16/19 04:39 MCHC 32 g/dL (31-36) 02/16/19 04:39 RDW 22 % (10-15) H 02/16/19 04:39 Plt Count 358 10^3/uL (150-450) 02/16/19 04:39 MPV 6.7 fL (7.4-10.4) L 02/16/19 04:39 Neut % (Auto) 68.8 % 02/16/19 04:39 Lymph % (Auto) 13.9 % 02/16/19 04:39 [place] % (Auto) 10.6 % 02/16/19 04:39 Eos % (Auto) 6.2 % 02/16/19 04:39 Baso % (Auto) 0.5 % 02/16/19 04:39 Absolute Neuts (auto) 7.0 10^3/ul (1.5-7.7) 02/16/19 04:39 Absolute Lymphs (auto) 1.4 10^3/ul (1.0-4.8) 02/16/19 04:39 Absolute Monos (auto) 1.1 10^3/ul (0-0.8) H 02/16/19 04:39 Absolute Eos (auto) 0.6 10^3/ul (0-0.6) 02/16/19 04:39 Absolute Basos (auto) 0.1 10^3/ul (0-0.2) 02/16/19 04:39 Absolute Nucleated RBC 0.0 10^3/ul 02/16/19 04:39 Nucleated RBC % 0.2 02/16/19 04:39 Sodium 135 mmol/L (135-145) 02/16/19 04:39 Potassium 4.5 mmol/L (3.5-5.0) 02/16/19 04:39 Chloride 103 mmol/L (101-111) 02/16/19 04:39 Carbon Dioxide 25 mmol/L (22-32) 02/16/19 04:39 Anion Gap 7 mmol/L (2-11) 02/16/19 04:39 BUN 24 mg/dL (6-24) 02/16/19 04:39 Creatinine 1.25 mg/dL (0.67-1.17) H 02/16/19 04:39 Est GFR ( Amer) 72.3 (>60) 02/16/19 04:39 Est GFR (Non-Af Amer) 59.7 (>60) 02/16/19 04:39 BUN/Creatinine Ratio 19.2 (8-20) 02/16/19 04:39 Glucose 140 mg/dL (70-100) H 02/16/19 04:39 POC Glucose (mg/dL) 170 mg/dL (70-100) H 02/17/19 08:24 Hemoglobin A1c 8.0 % (4.0-5.6) H 02/12/19 06:23 Lactic Acid 0.6 mmol/L (0.5-2.0) 02/12/19 09:16 Calcium 8.9 mg/dL (8.6-10.3) 02/16/19 04:39 Magnesium 2.3 mg/dL (1.9-2.7) 02/14/19 08:27 Iron 28 ug/dL (50-212) L 02/17/19 08:31 TIBC 311 mcg/dL (250-450) 02/17/19 08:31 % Saturation 9 % (15-55) L 02/17/19 08:31 Unsat Iron Binding < 296 ug/dL 02/17/19 08:31 Transferrin 222 mg/dL (203-362) 02/17/19 08:31 Urine Color Yellow 02/12/19 10:06 Urine Appearance Cloudy 02/12/19 10:06 Urine pH 5.0 (5-9) 02/12/19 10:06 Ur Specific Bond 1.010 (1.010-1.030) 02/12/19 10:06 Urine Protein 1+(30 mg/dl) (Negative) A 02/12/19 10:06 Urine Ketones Negative (Negative) 02/12/19 10:06 Urine Blood 1+ (Negative) A 02/12/19 10:06 Urine Nitrate Negative (Negative) 02/12/19 10:06 Urine Bilirubin Negative (Negative) 02/12/19 10:06 Urine Urobilinogen Negative (Negative) 02/12/19 10:06 Ur Leukocyte Esterase Negative (Negative) 02/12/19 10:06 Urine WBC (Auto) Trace(0-5/hpf) (Absent) 02/12/19 10:06 Urine RBC (Auto) Trace(0-2/hpf) (Absent) 02/12/19 10:06 Ur Squamous Epith Cells Present (Absent) A 02/12/19 10:06 Urine Bacteria Absent (Absent) 02/12/19 10:06 Urine Glucose Negative (Negative) 02/12/19 10:06 Vancomycin Trough 17.9 mcg/mL 02/16/19 13:51 Random Vancomycin 10.6 mcg/mL 02/13/19 05:57 Microbiology 02/12/19 09:16 Aerobic Blood Culture - Final Blood Venous No Growth Day 5 Anaerobic Blood Culture - Final No Growth Day 5 02/12/19 09:19 Aerobic Blood Culture - Final Blood Venous No Growth Day 5 Anaerobic Blood Culture - Final No Growth Day 5 02/10/19 13:51 Anaerobic Culture - Final Wound - Left Leg No Growth Day 4 02/10/19 13:51 Gram Stain - Final Leg Left Wound Culture - Final No Growth Day 4 02/12/19 10:06 Urine Culture - Final Urine Assessment: 1. Left LE chronic osteomyelitis. S/P left BKA, POD #7. Wound cultures with no growth. Blood cultures with no growth. Afebrile and leukocytosis has resolved. 2. Sepsis. Resolved 3. MATTHIAS. Creatinine improving, near baseline. 4. DM2 with peripheral neuropathy. 5. Morbid obesity. BMI 44.6. Plan: Discontinue Vancomycin and Flagyl. Continue Levaquin, day 6.
[2019-02-17] MEDS: Insulin GLARGINE(*) 1 UNITS UNIT SUBCUT SCH (21:05)
[2019-02-18] MEDS: oxyCODONE TAB* 5 MG TAB PO PRN ×3 (03:02→20:04)
[2019-02-18 05:46] LABS: ABS Basophils 0.1 10^3/ul (0-0.2); ABS Eosinophils 0.4 10^3/ul (0-0.6); ABS Lymphocytes 1.6 10^3/ul (1.0-4.8); ABS Monocytes 1.2 10^3/ul (0-0.8); ABS Neutrophils 9.4 10^3/ul (1.5-7.7); Eosinophil % 3.2 %; Hematocrit 31 % (42-52); Hemoglobin 9.8 g/dL (14.0-18.0); Lymphocyte % 12.5 %; Mean Corpuscular HGB Conc 31 g/dL (31-36); Mean Corpuscular Hemoglobin 21 pg (27-31); Mean Corpuscular Volume 68 fL (80-94); Mean Platelet Volume 6.6 fL (7.4-10.4); Platelet Count 385 10^3/uL (150-450); Red Blood Count 4.58 10^6 /uL (4.18-5.48); Red Cell Distribution Width 22 % (10-15); White Blood Count 12.6 10^3/uL (3.5-10.8)
[2019-02-18 05:49] LABS: BUN/Creatinine Ratio 12.9 (8-20); Calcium 9.2 mg/dL (8.6-10.3); EGFR African American 78.8 (>60); EGFR Non-African American 65.1 (>60); Potassium 4.2 mmol/L (3.5-5.0)
--- NOTE | 2019-02-18 08:55 | PN ---
Subjective Date of Service: 02/18/19 Interval History: Pt has had 2 BM's in the past 24H. feels less distended, denies nausea. Had tuna sandwich last night Family History: Unchanged from Admission Social History: Unchanged from Admission Past Medical History: Unchanged from Admission Objective Active Medications: Amlodipine Besylate (Norvasc Tab*) 5 mg PO DAILY [facility] Last Admin: 02/17/19 08:25 Dose: 5 mg Bisacodyl (Dulcolax Supp*) 10 mg [place] DAILY PRN PRN Reason: CONSTIPATION Dextrose (D50w Syringe 50 Ml*) 12.5 gm IV PUSH .FOR FS < 60 - SS PRN PRN Reason: FS < 60 Docusate Sodium (Colace Cap*) 100 mg PO BID [facility] Last Admin: 02/17/19 21:06 Dose: Not Given Enoxaparin Sodium (Lovenox(*)) 40 mg SUBCUT DAILY [facility] Last Admin: 02/17/19 08:25 Dose: 40 mg Hydralazine HCl (Apresoline Iv*) 5 mg IV SLOW PU Q6H PRN PRN Reason: HTN Levofloxacin/Dextrose (Levaquin 500 Mg Ivpremix(*)) 500 mg in 100 mls @ 100 mls /hr IVPB Q48HR [facility]; Protocol Last Admin: 02/16/19 08:54 Dose: 100 mls/hr Insulin Glargine (Lantus(*)) 15 units SUBCUT BEDTIME [facility] Last Admin: 02/17/19 21:05 Dose: 15 units Insulin Human Lispro (Humalog*) 0 units SUBCUT AC [facility]; Protocol Last Admin: 02/17/19 19:27 Dose: 1 unit Lisinopril (Prinivil Tab*) 5 mg PO DAILY [facility] Last Admin: 02/17/19 08:25 Dose: 5 mg Magnesium Hydroxide (Milk Of Magnesia Liq*) 30 ml PO BID [facility] Last Admin: 02/17/19 21:06 Dose: Not Given Magnesium Hydroxide (Milk Of Magnesia Liq*) 30 ml PO BID PRN PRN Reason: CONSTIPATION Metoclopramide HCl (Reglan Iv*) 5 mg IV Q6H PRN PRN Reason: NAUSEA/VOMITING Last Admin: 02/17/19 03:25 Dose: 5 mg Oxycodone HCl (Roxycodone Tab*) 5 mg PO Q4H PRN PRN Reason: PAIN - MILD Oxycodone HCl (Roxycodone Tab*) 10 mg PO Q6H PRN PRN Reason: PAIN - SEVERE Last Admin: 02/18/19 03:02 Dose: 10 mg Polyethylene Glycol/Electrolytes (Miralax*) 17 gm PO DAILY PRN PRN Reason: CONSTIPATION Senna (Senokot Tab*) 1 tab PO BEDTIME PRN PRN Reason: CONSTIPATION Last Admin: 02/17/19 08:25 Dose: 1 tab Throat Lozenges (Chloraseptic Sloan*) 1 sloan PO Q6H PRN PRN Reason: SORE THROAT Last Admin: 02/15/19 04:52 Dose: 1 sloan Vital Signs - 8 hr 02/18/19 02/18/19 02/18/19 03:02 04:27 07:28 Temperature 97.5 F 97.5 F Pulse Rate 74 73 Respiratory 17 17 17 Rate Blood Pressure 139/75 157/75 (mmHg) O2 Sat by Pulse 97 95 Oximetry 02/18/19 08:00 Temperature Pulse Rate Respiratory 17 Rate Blood Pressure (mmHg) O2 Sat by Pulse 95 Oximetry Oxygen Devices in Use Now: None Appearance: 58 yo M in nAD, aAOx3 Eyes: No Scleral Icterus, PERRLA Ears/Nose/Mouth/Throat: NL Teeth, Lips, Gums, Mucous Membranes Moist Neck: NL Appearance and Movements; NL JVP, Trachea Midline Respiratory: Symmetrical Chest Expansion and Respiratory Effort, Clear to Auscultation Cardiovascular: NL Sounds; No Murmurs; No JVD, RRR Abdominal: No Hepatosplenomegaly, - - distended, soft, NT, BS+, tympaninc Lymphatic: No Cervical Adenopathy Extremities: No Clubbing, Cyanosis, - - b/l LE's edema R>L, left leg s/p BKA in post op dressings Skin: No Nodules or Sclerosis Neurological: Alert and Oriented x 3, NL Muscle Strength and Tone Result Diagrams: 02/18/19 05:27 02/18/19 05:27 Microbiology and Other Data: Microbiology 02/10/19 13:51 Gram Stain - Final Leg Left Wound Culture - Preliminary No Growth Day 1 02/10/19 13:51 Anaerobic Culture - Preliminary Wound - Left Leg No Growth Day 1 Assess/Plan/Problems-Billing Assessment: Mr Maldonado is a 58yo M with PMH of morbid obesity with BMI 44, type 2 DM, CKD stage, PVD, HTN, depression, 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 Hospitalist service consulted for medical management of comorbidities. - Patient Problems (1) Gastric outlet obstruction Comment: acute, developed 02/13/19-resolved. today after 2xBM's in the past 24H feels well. Tolerating diet Appreciate GI consult. Pt pulled NG 02/13/19, requested to to restart diet . CT showing non obstruction, but noted new c/w 2013 pulm nodules. Pt is aware of need of CT in 3-6 months(of chest) to document lung nodules stability (2) Status post below knee amputation of left lower extremity Comment: - Management as per Ortho. - Pain is controlled with oxycodone. - Patient is not interested in DAR - PMRU evaluation pending. (3) Chronic kidney disease Comment: - CKD stage 2-3. - Creatinine at baseline (4) Diabetes Comment: - A1c is 8. - Continue Lispro SS.Lantus lowered from 58 (home dose)to 15 due to NPO status 02/13, now BG<200 on current Lantus 15 U-will cont (5) Osteomyelitis SNOMED Code(s): 25275509 Comment: - Cultures sent in the OR show no growth so far. - D/w Dr Walker, Dr Marti, and Dr Chamberlain - Levofloxacin day 04/06 (6) Sepsis Comment: - Met sepsis criteria with tachycardia and leukocytosis 02/12/2019. - Source is likely stump infection/osteomyelitis. - UA and CxR are negative. - LA is normal, responded well to IVF. - Continue Vancomycin, Levofloxacin, and Metronidazole. - Continue to monitor. (7) HTN (hypertension) Comment: - Controlled. - Continue Amlodpine and Lisinopril. (8) Hyponatremia Comment: resolved with IVF (9) Microcytic anemia Comment: chronic iron and TIBC levels indicate likely anemia of chronic disease. will check stool guaiac for completeness. Will not start iron PO due to h/o constipation, N /V (10) DVT prophylaxis Comment: - Lovenox Status and Disposition: Hospitalist service will continue to follow daily stable for discharge
[2019-02-18] MEDS: Enoxaparin(*) 40 MG/0.4 ML SYR SUBCUT SCH (08:59)
[2019-02-18] MEDS: Magnesium Hydroxide LIQ* 30 ML UDC PO SCH ×2 (09:00→20:06)
[2019-02-18] MEDS: Docusate CAP* 100 MG PO SCH ×2 (09:00→20:06)
[2019-02-18] MEDS: amLODIPine TAB* 5 MG PO SCH (09:00)
[2019-02-18] MEDS: Lisinopril TAB* 5 MG PO SCH (09:00)
[2019-02-18] MEDS: Insulin LISPRO* 1 UNITS UNIT SUBCUT SCH ×3 (09:01→18:17)
[2019-02-18] MEDS: Levofloxacin 500 MG IVPREMIX(* 500 MG/100 ML BAG IVPB SCH (09:09)
--- NOTE | 2019-02-18 11:03 | PN ---
Progress Note - Progress Note Date of Service: 02/18/19 SOAP: Subjective: []Pt seen OOB in chair. He is frustrated as [facility] is the only rehab that has offered a bed so far. Denies CP, SOB, dizziness, nausea, fever, chills, abd pain. Reports having two BMs yesterday and one today. Objective: []General: NAD, baseline interaction LLE: Dressing CDI, no erythema proximally. Calves supple and nontender Assessment: [] s/p BKA LLE ] Plan: [Con't abx - IV levofloxacin Bed offer at [facility]. Prefers PMRU or rehab in [place], telephonic nurse case manager is assisting with placement Last dressing change was yesterday by Dr Walker, Continue dressing changes every 3 days and PRN lovenox DVT prophy Vital Signs Temp 97.5 F 02/18/19 07:28 Pulse 73 02/18/19 07:28 Resp 18 02/18/19 08:00 BP 157/75 02/18/19 07:28 Pulse Ox 95 02/18/19 08:00 Intake & Output 02/17/19 02/18/19 02/18/19 18:59 06:59 18:59 Intake Total 855 1200 120 Output Total 2000 1200 450 Balance -1145 0 -330 Intake: IVPB 105 ABX - FLAGYL 105 Oral 750 1200 120 Output: Urine 2000 1200 450 Other: Date of Last Bowel 02/17/19 Movement # Bowel Movements 1 Estimated Stool Amount Large Laboratory Last Values WBC 12.6 10^3/uL (3.5-10.8) H 02/18/19 05:27 RBC 4.58 10^6 /uL (4.18-5.48) 02/18/19 05:27 Hgb 9.8 g/dL (14.0-18.0) L 02/18/19 05:27 Hct 31 % (42-52) L 02/18/19 05:27 MCV 68 fL (80-94) L 02/18/19 05:27 MCH 21 pg (27-31) L 02/18/19 05:27 MCHC 31 g/dL (31-36) 02/18/19 05:27 RDW 22 % (10-15) H 02/18/19 05:27 Plt Count 385 10^3/uL (150-450) 02/18/19 05:27 MPV 6.6 fL (7.4-10.4) L 02/18/19 05:27 Neut % (Auto) 74.5 % 02/18/19 05:27 Lymph % (Auto) 12.5 % 02/18/19 05:27 [place] % (Auto) 9.2 % 02/18/19 05:27 Eos % (Auto) 3.2 % 02/18/19 05:27 Baso % (Auto) 0.6 % 02/18/19 05:27 Absolute Neuts (auto) 9.4 10^3/ul (1.5-7.7) H 02/18/19 05:27 Absolute Lymphs (auto) 1.6 10^3/ul (1.0-4.8) 02/18/19 05:27 Absolute Monos (auto) 1.2 10^3/ul (0-0.8) H 02/18/19 05:27 Absolute Eos (auto) 0.4 10^3/ul (0-0.6) 02/18/19 05:27 Absolute Basos (auto) 0.1 10^3/ul (0-0.2) 02/18/19 05:27 Absolute Nucleated RBC 0.0 10^3/ul 02/18/19 05:27 Nucleated RBC % 0.0 02/18/19 05:27 Sodium 134 mmol/L (135-145) L 02/18/19 05:27 Potassium 4.2 mmol/L (3.5-5.0) 02/18/19 05:27 Chloride 101 mmol/L (101-111) 02/18/19 05:27 Carbon Dioxide 26 mmol/L (22-32) 02/18/19 05:27 Anion Gap 7 mmol/L (2-11) 02/18/19 05:27 BUN 15 mg/dL (6-24) 02/18/19 05:27 Creatinine 1.16 mg/dL (0.67-1.17) 02/18/19 05:27 Est GFR ( Amer) 78.8 (>60) 02/18/19 05:27 Est GFR (Non-Af Amer) 65.1 (>60) 02/18/19 05:27 BUN/Creatinine Ratio 12.9 (8-20) 02/18/19 05:27 Glucose 154 mg/dL (70-100) H 02/18/19 05:27 POC Glucose (mg/dL) 145 mg/dL (70-100) H 02/17/19 20:53 Hemoglobin A1c 8.0 % (4.0-5.6) H 02/12/19 06:23 Lactic Acid 0.6 mmol/L (0.5-2.0) 02/12/19 09:16 Calcium 9.2 mg/dL (8.6-10.3) 02/18/19 05:27 Magnesium 2.3 mg/dL (1.9-2.7) 02/14/19 08:27 Iron 28 ug/dL (50-212) L 02/17/19 08:31 TIBC 311 mcg/dL (250-450) 02/17/19 08:31 % Saturation 9 % (15-55) L 02/17/19 08:31 Unsat Iron Binding < 296 ug/dL 02/17/19 08:31 Transferrin 222 mg/dL (203-362) 02/17/19 08:31 Urine Color Yellow 02/12/19 10:06 Urine Appearance Cloudy 02/12/19 10:06 Urine pH 5.0 (5-9) 02/12/19 10:06 Ur Specific [place] 1.010 (1.010-1.030) 02/12/19 10:06 Urine Protein 1+(30 mg/dl) (Negative) A 02/12/19 10:06 Urine Ketones Negative (Negative) 02/12/19 10:06 Urine Blood 1+ (Negative) A 02/12/19 10:06 Urine Nitrate Negative (Negative) 02/12/19 10:06 Urine Bilirubin Negative (Negative) 02/12/19 10:06 Urine Urobilinogen Negative (Negative) 02/12/19 10:06 Ur Leukocyte Esterase Negative (Negative) 02/12/19 10:06 Urine WBC (Auto) Trace(0-5/hpf) (Absent) 02/12/19 10:06 Urine RBC (Auto) Trace(0-2/hpf) (Absent) 02/12/19 10:06 Ur Squamous Epith Cells Present (Absent) A 02/12/19 10:06 Urine Bacteria Absent (Absent) 02/12/19 10:06 Urine Glucose Negative (Negative) 02/12/19 10:06 Vancomycin Trough 17.9 mcg/mL 02/16/19 13:51 Random Vancomycin 10.6 mcg/mL 02/13/19 05:57
[2019-02-18] MEDS: Insulin GLARGINE(*) 1 UNITS UNIT SUBCUT SCH (20:05)
[2019-02-19 07:27] LABS: ABS Basophils 0.1 10^3/ul (0-0.2); ABS Eosinophils 0.5 10^3/ul (0-0.6); ABS Lymphocytes 1.7 10^3/ul (1.0-4.8); ABS Monocytes 1.2 10^3/ul (0-0.8); ABS Neutrophils 9.1 10^3/ul (1.5-7.7); Eosinophil % 3.7 %; Hematocrit 31 % (42-52); Hemoglobin 9.7 g/dL (14.0-18.0); Lymphocyte % 13.6 %; Mean Corpuscular HGB Conc 32 g/dL (31-36); Mean Corpuscular Hemoglobin 21 pg (27-31); Mean Corpuscular Volume 67 fL (80-94); Mean Platelet Volume 6.7 fL (7.4-10.4); Nucleated Red Blood Cells % 0.1; Platelet Count 395 10^3/uL (150-450); Red Blood Count 4.61 10^6 /uL (4.18-5.48); Red Cell Distribution Width 22 % (10-15); White Blood Count 12.5 10^3/uL (3.5-10.8)
[2019-02-19] MEDS: Docusate CAP* 100 MG PO SCH ×2 (08:36→20:48)
[2019-02-19] MEDS: amLODIPine TAB* 5 MG PO SCH (08:36)
[2019-02-19] MEDS: oxyCODONE TAB* 5 MG TAB PO PRN ×2 (08:36→16:02)
[2019-02-19] MEDS: Lisinopril TAB* 5 MG PO SCH (08:36)
[2019-02-19] MEDS: Levofloxacin 500 MG IVPREMIX(* 500 MG/100 ML BAG IVPB SCH (08:37)
[2019-02-19] MEDS: Enoxaparin(*) 40 MG/0.4 ML SYR SUBCUT SCH (08:37)
[2019-02-19] MEDS: Magnesium Hydroxide LIQ* 30 ML UDC PO SCH ×2 (08:38→20:48)
[2019-02-19] MEDS: Insulin LISPRO* 1 UNITS UNIT SUBCUT SCH ×3 (09:44→17:46)
--- NOTE | 2019-02-19 10:12 | PN ---
Progress Note - Progress Note Date of Service: 02/19/19 SOAP: Subjective: CC: Left foot infection HPI: Mr. Maldonado is a 58 yo male with PMH significant for chronic left foot osteomyelitis, CKD stage 2, DM2 with diabetic neuropathy, morbid obesity, PVD, depression, and HLD; who presented to the hospital with a left LE infection and is s/p a left BKA. Denies fever, chills, nausea, vomiting, diarrhea, constipation. Reports passing flatus. Pain in the left LE is controlled with pain medication. Objective: Vital Signs - 8 hr 02/19/19 02/19/19 02/19/19 03:10 07:22 08:36 Temperature 97.8 F 97.3 F Pulse Rate 80 72 Respiratory 18 17 18 Rate Blood Pressure 154/75 124/70 (mmHg) O2 Sat by Pulse 94 97 Oximetry Physical Exam: General: NAD, sitting up in a chair. Neurological: Alert and Oriented x 4 HEENT: No thrush, moist MM Cardiovascular: Heart rate regular Respiratory: Lung sounds clear Abdominal: Bowel sounds present; ABD soft, non tender and large Skin: No erythema above the dressing, DONALD wrap dressing clean, dry and intact Laboratory Results - last 24 hr 02/19/19 02/19/19 02/19/19 07:00 07:01 07:49 WBC 12.5 H RBC 4.61 Hgb 9.7 L Hct 31 L MCV 67 L MCH 21 L MCHC 32 RDW 22 H Plt Count 395 MPV 6.7 L Neut % (Auto) 72.7 Lymph % (Auto) 13.6 [place] % (Auto) 9.4 Eos % (Auto) 3.7 Baso % (Auto) 0.6 Absolute Neuts (auto) 9.1 H Absolute Lymphs (auto) 1.7 Absolute Monos (auto) 1.2 H Absolute Eos (auto) 0.5 Absolute Basos (auto) 0.1 Absolute Nucleated RBC 0.0 Nucleated RBC % 0.1 Sodium 135 POC Glucose (mg/dL) 142 H Microbiology 02/12/19 09:16 Aerobic Blood Culture - Final Blood Venous No Growth Day 5 Anaerobic Blood Culture - Final No Growth Day 5 02/12/19 09:19 Aerobic Blood Culture - Final Blood Venous No Growth Day 5 Anaerobic Blood Culture - Final No Growth Day 5 02/10/19 13:51 Anaerobic Culture - Final Wound - Left Leg No Growth Day 4 02/10/19 13:51 Gram Stain - Final Leg Left Wound Culture - Final No Growth Day 4 02/12/19 10:06 Urine Culture - Final Urine Assessment: 1. Left LE chronic osteomyelitis. S/P left BKA, POD #9. Wound cultures with no growth, day 4. Blood cultures with no growth, day 5. Afebrile and mild leukocytosis. Per orthopedics incision looked ok with dressing changes earlier this week, they plan to change the dressing again tomorrow. 2. DM2 with peripheral neuropathy. 3. Morbid obesity. BMI 44.6. Plan: Continue Levaquin, day 05/07.
--- NOTE | 2019-02-19 10:57 | PN ---
Subjective Date of Service: 02/19/19 Interval History: Pt feels well, less abd distention, denies N/V Family History: Unchanged from Admission Social History: Unchanged from Admission Past Medical History: Unchanged from Admission Objective Active Medications: Amlodipine Besylate (Norvasc Tab*) 5 mg PO DAILY [facility] Last Admin: 02/19/19 08:36 Dose: 5 mg Bisacodyl (Dulcolax Supp*) 10 mg DC DAILY PRN PRN Reason: CONSTIPATION Dextrose (D50w Syringe 50 Ml*) 12.5 gm IV PUSH .FOR FS < 60 - SS PRN PRN Reason: FS < 60 Docusate Sodium (Colace Cap*) 100 mg PO BID [facility] Last Admin: 02/19/19 08:36 Dose: 100 mg Enoxaparin Sodium (Lovenox(*)) 40 mg SUBCUT DAILY [facility] Last Admin: 02/19/19 08:37 Dose: 40 mg Hydralazine HCl (Apresoline Iv*) 5 mg IV SLOW PU Q6H PRN PRN Reason: HTN Levofloxacin/Dextrose (Levaquin 500 Mg Ivpremix(*)) 500 mg in 100 mls @ 100 mls /hr IVPB Q24HR [facility]; Protocol Last Admin: 02/19/19 08:37 Dose: 100 mls/hr Insulin Glargine (Lantus(*)) 15 units SUBCUT BEDTIME [facility] Last Admin: 02/18/19 20:05 Dose: 15 units Insulin Human Lispro (Humalog*) 0 units SUBCUT AC [facility]; Protocol Last Admin: 02/19/19 09:44 Dose: 5 unit Lisinopril (Prinivil Tab*) 5 mg PO DAILY [facility] Last Admin: 02/19/19 08:36 Dose: 5 mg Magnesium Hydroxide (Milk Of Magnesia Liq*) 30 ml PO BID [facility] Last Admin: 02/19/19 08:38 Dose: Not Given Magnesium Hydroxide (Milk Of Magnesia Liq*) 30 ml PO BID PRN PRN Reason: CONSTIPATION Metoclopramide HCl (Reglan Iv*) 5 mg IV Q6H PRN PRN Reason: NAUSEA/VOMITING Last Admin: 02/17/19 03:25 Dose: 5 mg Oxycodone HCl (Roxycodone Tab*) 5 mg PO Q4H PRN PRN Reason: PAIN - MILD Oxycodone HCl (Roxycodone Tab*) 10 mg PO Q6H PRN PRN Reason: PAIN - SEVERE Last Admin: 02/19/19 08:36 Dose: 10 mg Polyethylene Glycol/Electrolytes (Miralax*) 17 gm PO DAILY PRN PRN Reason: CONSTIPATION Senna (Senokot Tab*) 1 tab PO BEDTIME PRN PRN Reason: CONSTIPATION Last Admin: 02/17/19 08:25 Dose: 1 tab Throat Lozenges (Chloraseptic Sloan*) 1 sloan PO Q6H PRN PRN Reason: SORE THROAT Last Admin: 02/15/19 04:52 Dose: 1 sloan Vital Signs - 8 hr 02/19/19 02/19/19 02/19/19 03:10 07:22 08:36 Temperature 97.8 F 97.3 F Pulse Rate 80 72 Respiratory 18 17 18 Rate Blood Pressure 154/75 124/70 (mmHg) O2 Sat by Pulse 94 97 Oximetry Oxygen Devices in Use Now: None Appearance: 58 yo M in nAD, aAOx3 Eyes: No Scleral Icterus, PERRLA Ears/Nose/Mouth/Throat: NL Teeth, Lips, Gums, Mucous Membranes Moist Neck: NL Appearance and Movements; NL JVP, Trachea Midline Respiratory: Symmetrical Chest Expansion and Respiratory Effort, Clear to Auscultation Cardiovascular: NL Sounds; No Murmurs; No JVD, RRR Abdominal: - - distended, soft, NT, BS+ Lymphatic: No Cervical Adenopathy, No Inguinal Adenopathy Extremities: - - trace left stump edema, stum in post op dressings -not removed Skin: No Nodules or Sclerosis Neurological: Alert and Oriented x 3, NL Muscle Strength and Tone Result Diagrams: 02/19/19 07:00 02/19/19 07:01 Microbiology and Other Data: Microbiology 02/10/19 13:51 Gram Stain - Final Leg Left Wound Culture - Preliminary No Growth Day 1 02/10/19 13:51 Anaerobic Culture - Preliminary Wound - Left Leg No Growth Day 1 Assess/Plan/Problems-Billing Assessment: Mr Maldonado is a 58yo M with PMH of morbid obesity with BMI 44, type 2 DM, CKD stage, PVD, HTN, depression, 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 Hospitalist service consulted for medical management of comorbidities. - Patient Problems (1) Gastric outlet obstruction Comment: acute, developed 02/13/19-resolved. today tolerating diet Appreciate GI consult. Pt pulled NG 02/13/19, requested to to restart diet . CT showing non obstruction, but noted new c/w 2013 pulm nodules. Pt is aware of need of CT in 3-6 months(of chest) to document lung nodules stability (2) Status post below knee amputation of left lower extremity Comment: - Management as per Ortho. - Pain is controlled with oxycodone. - Patient agrees to DAR (3) Chronic kidney disease Comment: - CKD stage 2-3. - Creatinine at baseline (4) Diabetes Comment: - A1c is 8. - Continue Lispro SS.Lantus lowered from 58 (home dose)to 15 due to NPO status 02/13, now BG<200 on current Lantus 15 U-will cont (5) Osteomyelitis SNOMED Code(s): 03361937 Comment: - Cultures sent in the OR show no growth so far. - D/w Dr Walker, Dr Marti, and Dr Chamberlain - Levofloxacin day 05/07 (6) Sepsis Comment: - Met sepsis criteria with tachycardia and leukocytosis 02/12/2019. - Source is likely stump infection/osteomyelitis. - resolved (7) HTN (hypertension) Comment: - Controlled. - Continue Norvasc and Lisinopril. (8) Hyponatremia Comment: resolved with IVF (9) Microcytic anemia Comment: chronic iron and TIBC levels indicate likely anemia of chronic disease. Stool guaiac for completeness ordered. Will not start iron PO due to h/o constipation, N/V (10) DVT prophylaxis Comment: - Lovenox Status and Disposition: Hospitalist service will continue to follow daily stable for discharge
--- NOTE | 2019-02-19 17:26 | PN ---
Progress Note - Progress Note Date of Service: 02/19/19 SOAP: Subjective: []Pt seen at bedside. He feels well. Denies fever, chills, CP, SOB, dizziness, nausea, abd pain. Objective: []eneral: NAD, baseline interaction LLE: Dressing changed, incision CDI without erythema or discharge. New soft dressing with xeroform, 4x4s, kerlix, marcos placed. Calves supple and nontender Assessment: [] s/p BKA LLE ] Plan: [Con't abx - IV levofloxacin DC to [facility] anticipated for tomorrow lovenox DVT prophy Vital Signs Temp 98.2 F 02/19/19 15:16 Pulse 75 02/19/19 15:16 Resp 18 02/19/19 16:02 BP 139/63 02/19/19 15:16 Pulse Ox 94 02/19/19 15:16 Intake & Output 02/18/19 02/19/19 02/19/19 18:59 06:59 18:59 Intake Total 1240 1000 680 Output Total 1405 1175 1350 Balance -165 -175 -670 Intake: Oral 1240 1000 680 Output: Urine 1405 1175 1350 Other: # Bowel Movements 0 1 Estimated Stool Amount Medium Laboratory Last Values WBC 12.5 10^3/uL (3.5-10.8) H 02/19/19 07:00 RBC 4.61 10^6 /uL (4.18-5.48) 02/19/19 07:00 Hgb 9.7 g/dL (14.0-18.0) L 02/19/19 07:00 Hct 31 % (42-52) L 02/19/19 07:00 MCV 67 fL (80-94) L 02/19/19 07:00 MCH 21 pg (27-31) L 02/19/19 07:00 MCHC 32 g/dL (31-36) 02/19/19 07:00 RDW 22 % (10-15) H 02/19/19 07:00 Plt Count 395 10^3/uL (150-450) 02/19/19 07:00 MPV 6.7 fL (7.4-10.4) L 02/19/19 07:00 Neut % (Auto) 72.7 % 02/19/19 07:00 Lymph % (Auto) 13.6 % 02/19/19 07:00 [place] % (Auto) 9.4 % 02/19/19 07:00 Eos % (Auto) 3.7 % 02/19/19 07:00 Baso % (Auto) 0.6 % 02/19/19 07:00 Absolute Neuts (auto) 9.1 10^3/ul (1.5-7.7) H 02/19/19 07:00 Absolute Lymphs (auto) 1.7 10^3/ul (1.0-4.8) 02/19/19 07:00 Absolute Monos (auto) 1.2 10^3/ul (0-0.8) H 02/19/19 07:00 Absolute Eos (auto) 0.5 10^3/ul (0-0.6) 02/19/19 07:00 Absolute Basos (auto) 0.1 10^3/ul (0-0.2) 02/19/19 07:00 Absolute Nucleated RBC 0.0 10^3/ul 02/19/19 07:00 Nucleated RBC % 0.1 02/19/19 07:00 Sodium 135 mmol/L (135-145) 02/19/19 07:01 Potassium 4.2 mmol/L (3.5-5.0) 02/18/19 05:27 Chloride 101 mmol/L (101-111) 02/18/19 05:27 Carbon Dioxide 26 mmol/L (22-32) 02/18/19 05:27 Anion Gap 7 mmol/L (2-11) 02/18/19 05:27 BUN 15 mg/dL (6-24) 02/18/19 05:27 Creatinine 1.16 mg/dL (0.67-1.17) 02/18/19 05:27 Est GFR ( Amer) 78.8 (>60) 02/18/19 05:27 Est GFR (Non-Af Amer) 65.1 (>60) 02/18/19 05:27 BUN/Creatinine Ratio 12.9 (8-20) 02/18/19 05:27 Glucose 154 mg/dL (70-100) H 02/18/19 05:27 POC Glucose (mg/dL) 123 mg/dL (70-100) H 02/19/19 16:53 Hemoglobin A1c 8.0 % (4.0-5.6) H 02/12/19 06:23 Lactic Acid 0.6 mmol/L (0.5-2.0) 02/12/19 09:16 Calcium 9.2 mg/dL (8.6-10.3) 02/18/19 05:27 Magnesium 2.3 mg/dL (1.9-2.7) 02/14/19 08:27 Iron 28 ug/dL (50-212) L 02/17/19 08:31 TIBC 311 mcg/dL (250-450) 02/17/19 08:31 % Saturation 9 % (15-55) L 02/17/19 08:31 Unsat Iron Binding < 296 ug/dL 02/17/19 08:31 Transferrin 222 mg/dL (203-362) 02/17/19 08:31 Urine Color Yellow 02/12/19 10:06 Urine Appearance Cloudy 02/12/19 10:06 Urine pH 5.0 (5-9) 02/12/19 10:06 Ur Specific [place] 1.010 (1.010-1.030) 02/12/19 10:06 Urine Protein 1+(30 mg/dl) (Negative) A 02/12/19 10:06 Urine Ketones Negative (Negative) 02/12/19 10:06 Urine Blood 1+ (Negative) A 02/12/19 10:06 Urine Nitrate Negative (Negative) 02/12/19 10:06 Urine Bilirubin Negative (Negative) 02/12/19 10:06 Urine Urobilinogen Negative (Negative) 02/12/19 10:06 Ur Leukocyte Esterase Negative (Negative) 02/12/19 10:06 Urine WBC (Auto) Trace(0-5/hpf) (Absent) 02/12/19 10:06 Urine RBC (Auto) Trace(0-2/hpf) (Absent) 02/12/19 10:06 Ur Squamous Epith Cells Present (Absent) A 02/12/19 10:06 Urine Bacteria Absent (Absent) 02/12/19 10:06 Urine Glucose Negative (Negative) 02/12/19 10:06 Vancomycin Trough 17.9 mcg/mL 02/16/19 13:51 Random Vancomycin 10.6 mcg/mL 02/13/19 05:57
[2019-02-19] MEDS: Insulin GLARGINE(*) 1 UNITS UNIT SUBCUT SCH (21:13)
[2019-02-20] MEDS: oxyCODONE TAB* 5 MG TAB PO PRN ×2 (02:19→13:05)
[2019-02-20] MEDS: amLODIPine TAB* 5 MG PO SCH (09:27)
[2019-02-20] MEDS: Docusate CAP* 100 MG PO SCH ×2 (09:27→20:33)
[2019-02-20] MEDS: Lisinopril TAB* 5 MG PO SCH (09:27)
[2019-02-20] MEDS: Magnesium Hydroxide LIQ* 30 ML UDC PO SCH ×2 (09:28→20:33)
[2019-02-20] MEDS: Enoxaparin(*) 40 MG/0.4 ML SYR SUBCUT SCH (09:29)
[2019-02-20] MEDS: Levofloxacin 500 MG IVPREMIX(* 500 MG/100 ML BAG IVPB SCH (09:30)
[2019-02-20] MEDS: Insulin LISPRO* 1 UNITS UNIT SUBCUT SCH ×3 (09:30→17:52)
[2019-02-20 11:03] LABS: ABS Basophils 0.1 10^3/ul (0-0.2); ABS Eosinophils 0.4 10^3/ul (0-0.6); ABS Lymphocytes 1.3 10^3/ul (1.0-4.8); ABS Monocytes 0.9 10^3/ul (0-0.8); ABS Neutrophils 8.3 10^3/ul (1.5-7.7); Eosinophil % 3.7 %; Hematocrit 30 % (42-52); Hemoglobin 9.6 g/dL (14.0-18.0); Lymphocyte % 12.1 %; Mean Corpuscular HGB Conc 32 g/dL (31-36); Mean Corpuscular Hemoglobin 21 pg (27-31); Mean Corpuscular Volume 67 fL (80-94); Mean Platelet Volume 6.7 fL (7.4-10.4); Platelet Count 440 10^3/uL (150-450); Red Blood Count 4.51 10^6 /uL (4.18-5.48); Red Cell Distribution Width 22 % (10-15)
[2019-02-20 11:20] LABS: Potassium 4.3 mmol/L (3.5-5.0)
[2019-02-20 11:21] LABS: BUN/Creatinine Ratio 15.3 (8-20); Calcium 8.9 mg/dL (8.6-10.3); EGFR African American 77.3 (>60); EGFR Non-African American 63.9 (>60)
--- NOTE | 2019-02-20 11:34 | DS ---
Orthopedic Discharge Summary - Discharge Summary Date of Admission:02/10/19 Date of Discharge: 02/20/19 Date of Surgery: 02/10/19 Attending Orthopedic Provider: Dr Walker Pre-operative Diagnosis: Osteomyelitis Left hindfoot stump Operative Procedure: BKA left lower extremity Disposition of Patient: Nehemiah Boswell Condition of Patient: stable History: BRIANNA GILLIS is a 58 year old M with left hindfoot stump osteomyelitis Hospital Course: BRIANNA was admitted to [facility] on 02/10/19. Patient underwent a [left BKA] without complication followed by a brief recovery in PACU and transfer to the Short Stay Surgical Unit in stable condition. Our hospitalist service, infectious disease, physical therapy and occupational therapy also participated in this patients care. His dressing was changed approx q 3 days throughout his stay, wound is CDI, well approximated edges, no erythema at time of discharge. He did develop a gastric outlet obstruction treated with NG tube during his stay which has resolved. Due to hypoglycemia his lantus dose has been reduced from 58 units to 20 units daily, and his humalog held, to be restarted and titrated as needed at rehab. Would cultures show no growth to date, per infectious disease he will discharge on 500 mg IV levaquin x 28 days in duration. 02/20/19 is day 9. Home Medications Medication Instructions Recorded Confirmed Type FLUoxetine CAP* [Prozac CAP*] 40 mg PO QAM 04/04/14 02/10/19 History amLODIPine TAB* [Norvasc 5 mg TAB*] 5 mg PO QAM 05/04/14 02/10/19 History Lisinopril TAB* [Prinivil TAB 10 5 mg PO QAM 01/22/18 02/10/19 History MG*] Pravastatin (NF) [Pravachol (NF)] 20 mg PO BEDTIME 01/22/18 02/10/19 History Gabapentin CAP(*) [Neurontin 400 400 mg PO BID #30 cap 12/02/18 02/10/19 Rx mg CAP(*)] Ferrous Sulfate TAB* 325 mg PO BID 02/06/19 02/10/19 History Docusate CAP* [Colace Cap*] 100 mg PO BID cap 02/20/19 Rx Enoxaparin(*) [Lovenox(*)] 40 mg SUBCUT DAILY syringe 02/20/19 Rx Insulin GLARGINE(*) [Lantus(*)] 20 units SUBCUT BEDTIME unit 02/20/19 Rx Levofloxacin 500 MG IVPREMIX(* 500 mg IV Q24H 20 Days #20 iv.soln 02/20/19 Rx [Levaquin 500 MG IVPREMIX(*)] oxyCODONE TAB* [Roxycodone TAB 5 5 mg PO Q4H PRN tab MDD 10 02/20/19 Rx mg*] oxyCODONE TAB* [Roxycodone TAB 5 10 mg PO Q6H PRN tab MDD 10 02/20/19 Rx mg*] Discharge instruction nonweightbearing operative extremity Keep dressing clean, dry and intact Follow up for wound check with orthopedics Dr Walker early next week call for appointment [phone] Continue lovenox 40 mg sq daily while immobilized Continue levaquin 500 mg IV daily for the duration of 28 days, on day 9 out of 28 as of 02/20/19 Infectious disease will contact patient to make an appointment Go to the emergency room with chest pain or shortness of breath Call orthopedics with fever, chills, redness, increased pain, fever Please follow up with your Primary Care Provider for a repeat CT scan given the pulmonary nodules found on the CT scan completed while you were hospitalized. You will need a repeat CT in 3 to 6 months and your Primary Care Provider can ordered it for you. We have decreased your long acting Insulin from 53 units daily to 20 units daily given your lower blood sugars while you were hospitalized. We have also stopped your meal time insulin temporarily. Please continue taking your Blood Sugar (Finger Sticks) before meals and at bedtime. Brings these readings to your Primary Care Provider to help guide him/her on when to add back in you meal time insulin to your regime and when to increase your long acting insulin if needed.
--- NOTE | 2019-02-20 15:52 | PN ---
Subjective Date of Service: 02/20/19 Interval History: Resting in recliner on assessment. Patient is cheerful and joking. Reports pain is min. Denies cp, sob, fever, chills, nausea, vomiting, fever, chills. Family History: Unchanged from Admission Social History: Unchanged from Admission Past Medical History: Unchanged from Admission Objective Active Medications: Amlodipine Besylate (Norvasc Tab*) 5 mg PO DAILY [facility] Last Admin: 02/20/19 09:27 Dose: 5 mg Bisacodyl (Dulcolax Supp*) 10 mg [place] DAILY PRN PRN Reason: CONSTIPATION Dextrose (D50w Syringe 50 Ml*) 12.5 gm IV PUSH .FOR FS < 60 - SS PRN PRN Reason: FS < 60 Docusate Sodium (Colace Cap*) 100 mg PO BID [facility] Last Admin: 02/20/19 09:27 Dose: Not Given Enoxaparin Sodium (Lovenox(*)) 40 mg SUBCUT DAILY [facility] Last Admin: 02/20/19 09:29 Dose: 40 mg Hydralazine HCl (Apresoline Iv*) 5 mg IV SLOW PU Q6H PRN PRN Reason: HTN Levofloxacin/Dextrose (Levaquin 500 Mg Ivpremix(*)) 500 mg in 100 mls @ 100 mls /hr IVPB Q24HR [facility]; Protocol Last Admin: 02/20/19 09:30 Dose: 100 mls/hr Insulin Glargine (Lantus(*)) 15 units SUBCUT BEDTIME [facility] Last Admin: 02/19/19 21:13 Dose: 15 units Insulin Human Lispro (Humalog*) 0 units SUBCUT AC [facility]; Protocol Last Admin: 02/20/19 13:05 Dose: 6 unit Lisinopril (Prinivil Tab*) 5 mg PO DAILY [facility] Last Admin: 02/20/19 09:27 Dose: 5 mg Magnesium Hydroxide (Milk Of Magnesia Liq*) 30 ml PO BID [facility] Last Admin: 02/20/19 09:28 Dose: Not Given Magnesium Hydroxide (Milk Of Magnesia Liq*) 30 ml PO BID PRN PRN Reason: CONSTIPATION Metoclopramide HCl (Reglan Iv*) 5 mg IV Q6H PRN PRN Reason: NAUSEA/VOMITING Last Admin: 02/17/19 03:25 Dose: 5 mg Oxycodone HCl (Roxycodone Tab*) 5 mg PO Q4H PRN PRN Reason: PAIN - MILD Oxycodone HCl (Roxycodone Tab*) 10 mg PO Q6H PRN PRN Reason: PAIN - SEVERE Last Admin: 02/20/19 13:05 Dose: 10 mg Polyethylene Glycol/Electrolytes (Miralax*) 17 gm PO DAILY PRN PRN Reason: CONSTIPATION Senna (Senokot Tab*) 1 tab PO BEDTIME PRN PRN Reason: CONSTIPATION Last Admin: 02/17/19 08:25 Dose: 1 tab Throat Lozenges (Chloraseptic Sloan*) 1 sloan PO Q6H PRN PRN Reason: SORE THROAT Last Admin: 02/15/19 04:52 Dose: 1 sloan Vital Signs - 8 hr 02/20/19 02/20/19 02/20/19 07:55 11:15 13:05 Temperature 97.9 F Pulse Rate 75 Respiratory 18 18 18 Rate Blood Pressure 129/58 (mmHg) O2 Sat by Pulse 95 Oximetry 02/20/19 15:33 Temperature 97.8 F Pulse Rate 69 Respiratory 17 Rate Blood Pressure 136/67 (mmHg) O2 Sat by Pulse 100 Oximetry Oxygen Devices in Use Now: None Appearance: Comfortable, NAD Eyes: No Scleral Icterus Ears/Nose/Mouth/Throat: Clear Oropharnyx, Mucous Membranes Moist Neck: NL Appearance and Movements; NL JVP Respiratory: Symmetrical Chest Expansion and Respiratory Effort, Clear to Auscultation Cardiovascular: NL Sounds; No Murmurs; No JVD, RRR, No Edema Abdominal: NL Sounds; No Tenderness; No Distention Lymphatic: No Cervical Adenopathy Extremities: No Edema Neurological: Alert and Oriented x 3 Nutrition: Taking PO's Result Diagrams: 02/20/19 10:40 02/20/19 10:40 Additional Lab and Data: Laboratory Results - last 24 hr 02/19/19 02/19/19 02/20/19 16:53 20:50 07:41 WBC RBC Hgb Hct MCV MCH MCHC RDW Plt Count MPV Neut % (Auto) Lymph % (Auto) [place] % (Auto) Eos % (Auto) Baso % (Auto) Absolute Neuts (auto) Absolute Lymphs (auto) Absolute Monos (auto) Absolute Eos (auto) Absolute Basos (auto) Absolute Nucleated RBC Nucleated RBC % Sodium Potassium Chloride Carbon Dioxide Anion Gap BUN Creatinine Est GFR ( Amer) Est GFR (Non-Af Amer) BUN/Creatinine Ratio Glucose POC Glucose (mg/dL) 123 H 176 H 145 H Calcium 02/20/19 02/20/19 10:40 10:40 WBC 11.0 H RBC 4.51 Hgb 9.6 L Hct 30 L MCV 67 L MCH 21 L MCHC 32 RDW 22 H Plt Count 440 MPV 6.7 L Neut % (Auto) 75.4 Lymph % (Auto) 12.1 [place] % (Auto) 8.1 Eos % (Auto) 3.7 Baso % (Auto) 0.7 Absolute Neuts (auto) 8.3 H Absolute Lymphs (auto) 1.3 Absolute Monos (auto) 0.9 H Absolute Eos (auto) 0.4 Absolute Basos (auto) 0.1 Absolute Nucleated RBC 0.0 Nucleated RBC % 0.0 Sodium 134 L Potassium 4.3 Chloride 99 L Carbon Dioxide 28 Anion Gap 7 BUN 18 Creatinine 1.18 H Est GFR ( Amer) 77.3 Est GFR (Non-Af Amer) 63.9 BUN/Creatinine Ratio 15.3 Glucose 202 H POC Glucose (mg/dL) Calcium 8.9 Microbiology and Other Data: Microbiology 02/12/19 09:16 Blood Venous Aerobic Blood Culture - Final No Growth Day 5 02/12/19 09:16 Blood Venous Anaerobic Blood Culture - Final No Growth Day 5 02/12/19 09:19 Blood Venous Aerobic Blood Culture - Final No Growth Day 5 02/12/19 09:19 Blood Venous Anaerobic Blood Culture - Final No Growth Day 5 02/10/19 13:51 Wound - Left Leg Anaerobic Culture - Final No Growth Day 4 02/10/19 13:51 Leg Left Gram Stain - Final 02/10/19 13:51 Leg Left Wound Culture - Final No Growth Day 4 02/12/19 10:06 Urine Urine Culture - Final Assess/Plan/Problems-Billing Assessment: Mr Maldonado is a 58yo M with PMH of morbid obesity with BMI 44, type 2 DM, CKD stage, PVD, HTN, depression, 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 Hospitalist service consulted for medical management of comorbidities. - Patient Problems (1) Status post below knee amputation of left lower extremity Comment: - Discharging to [facility] when available and patient is agreable to this plan - Management as per Ortho. - Pain is controlled (2) Pulmonary nodules Comment: - Discussed pulmonary nodules found on CT and patient states he was aware from previous provider. - Educated on follow up CT in 3 to 6 months which can be ordered to PCP. - Patient stated understanding. - Follow up written in Discharge Plan (3) Gastric outlet obstruction Comment: - Resolved - Developed acutely 02/13/19 - Tolerating diet (4) Chronic kidney disease Comment: - Creatinine at baseline - Follow up with BMP with PCP in 1 to 2 weeks (5) Diabetes Comment: - Recommend discharging on lower dose of Lantus such as 20 units (home dose is 58) given mid 100 FSBG here. In addition I would not recommend restarting mealtime insulin as he was taking at home until further instructed by PCP. I suspect diet is much better here leading to lower FSBG. - Cont ACHS finger sticks at discharge. - A1c is 8. (6) Microcytic anemia Comment: - Chronic issue. Labs at baseline. Recommend follow up and further evaluation with PCP afte discharge. - Iron and TIBC levels indicate likely anemia of chronic disease. - Stool guaiac for completeness ordered. - Iron PO not initiated due to h/o constipation, N/V (7) Osteomyelitis Comment: - Will be discharge on IV Levaquin per ID - Cultures sent in the OR show no growth so far. - Levofloxacin day 06/07 (8) Sepsis Comment: - Resolved - Met sepsis criteria with tachycardia and leukocytosis 02/12/2019 with source likely stump infection/osteomyelitis. (9) HTN (hypertension) Comment: - Controlled. - Continue Norvasc and Lisinopril. (10) Hyponatremia Comment: - Previously 124 and now 134. - Resolved with IVF - Repeat BMP with PCP in 1 to 2 weeks (11) DVT prophylaxis Comment: - Lovenox Status and Disposition: Hospitalist service will continue to follow daily stable for discharge Attending: Daniel Huddleston
[2019-02-20] MEDS: Insulin GLARGINE(*) 1 UNITS UNIT SUBCUT SCH (20:30)
[2019-02-21] MEDS: Enoxaparin(*) 40 MG/0.4 ML SYR SUBCUT SCH (09:18)
[2019-02-21] MEDS: amLODIPine TAB* 5 MG PO SCH (09:18)
[2019-02-21] MEDS: Insulin LISPRO* 1 UNITS UNIT SUBCUT SCH ×3 (09:19→19:10)
[2019-02-21] MEDS: Docusate CAP* 100 MG PO SCH ×2 (09:19→21:11)
[2019-02-21] MEDS: Lisinopril TAB* 5 MG PO SCH (09:19)
[2019-02-21] MEDS: Magnesium Hydroxide LIQ* 30 ML UDC PO SCH ×2 (09:19→21:11)
[2019-02-21] MEDS: Levofloxacin 500 MG IVPREMIX(* 500 MG/100 ML BAG IVPB SCH (09:19)
--- NOTE | 2019-02-21 09:22 | PN ---
Subjective Date of Service: 02/21/19 Interval History: Resting in chair on assessment. Reports pain is well controlled with PO pain medications. Discussed discharge plan to [facility] and how we are awaiting insurance preauthorization. Patient stated understanding. Denies cp, sob, nausea, vomiting, fever, chills. Reports he is urinating without difficulty and had a BM recently. Tolerating diet. Family History: Unchanged from Admission Social History: Unchanged from Admission Past Medical History: Unchanged from Admission Objective Active Medications: Amlodipine Besylate (Norvasc Tab*) 5 mg PO DAILY [facility] Last Admin: 02/20/19 09:27 Dose: 5 mg Bisacodyl (Dulcolax Supp*) 10 mg [place] DAILY PRN PRN Reason: CONSTIPATION Dextrose (D50w Syringe 50 Ml*) 12.5 gm IV PUSH .FOR FS < 60 - SS PRN PRN Reason: FS < 60 Docusate Sodium (Colace Cap*) 100 mg PO BID [facility] Last Admin: 02/20/19 20:33 Dose: Not Given Enoxaparin Sodium (Lovenox(*)) 40 mg SUBCUT DAILY [facility] Last Admin: 02/20/19 09:29 Dose: 40 mg Hydralazine HCl (Apresoline Iv*) 5 mg IV SLOW PU Q6H PRN PRN Reason: HTN Levofloxacin/Dextrose (Levaquin 500 Mg Ivpremix(*)) 500 mg in 100 mls @ 100 mls /hr IVPB Q24HR [facility]; Protocol Last Admin: 02/20/19 09:30 Dose: 100 mls/hr Insulin Glargine (Lantus(*)) 15 units SUBCUT BEDTIME [facility] Last Admin: 02/20/19 20:30 Dose: 15 units Insulin Human Lispro (Humalog*) 0 units SUBCUT AC [facility]; Protocol Last Admin: 02/20/19 17:52 Dose: 5 unit Lisinopril (Prinivil Tab*) 5 mg PO DAILY [facility] Last Admin: 02/20/19 09:27 Dose: 5 mg Magnesium Hydroxide (Milk Of Magnesia Liq*) 30 ml PO BID [facility] Last Admin: 02/20/19 20:33 Dose: Not Given Magnesium Hydroxide (Milk Of Magnesia Liq*) 30 ml PO BID PRN PRN Reason: CONSTIPATION Metoclopramide HCl (Reglan Iv*) 5 mg IV Q6H PRN PRN Reason: NAUSEA/VOMITING Last Admin: 02/17/19 03:25 Dose: 5 mg Oxycodone HCl (Roxycodone Tab*) 5 mg PO Q4H PRN PRN Reason: PAIN - MILD Oxycodone HCl (Roxycodone Tab*) 10 mg PO Q6H PRN PRN Reason: PAIN - SEVERE Last Admin: 02/20/19 13:05 Dose: 10 mg Polyethylene Glycol/Electrolytes (Miralax*) 17 gm PO DAILY PRN PRN Reason: CONSTIPATION Senna (Senokot Tab*) 1 tab PO BEDTIME PRN PRN Reason: CONSTIPATION Last Admin: 02/17/19 08:25 Dose: 1 tab Throat Lozenges (Chloraseptic Sloan*) 1 sloan PO Q6H PRN PRN Reason: SORE THROAT Last Admin: 02/15/19 04:52 Dose: 1 sloan Vital Signs - 8 hr 02/21/19 02/21/19 02/21/19 03:30 07:51 08:00 Temperature 98.4 F 97.7 F Pulse Rate 75 71 Respiratory 17 16 Rate Blood Pressure 145/63 134/70 (mmHg) O2 Sat by Pulse 95 90 94 Oximetry Oxygen Devices in Use Now: None Appearance: Comfortable, NAD Eyes: No Scleral Icterus Ears/Nose/Mouth/Throat: Clear Oropharnyx, Mucous Membranes Moist Neck: NL Appearance and Movements; NL JVP Respiratory: Symmetrical Chest Expansion and Respiratory Effort, Clear to Auscultation Cardiovascular: NL Sounds; No Murmurs; No JVD, RRR, No Edema Abdominal: NL Sounds; No Tenderness; No Distention Lymphatic: No Cervical Adenopathy Skin: No Rash or Ulcers, - - Dressing to LLE CDI Neurological: Alert and Oriented x 3 Nutrition: Taking PO's Result Diagrams: 02/20/19 10:40 02/20/19 10:40 Additional Lab and Data: . Microbiology and Other Data: Microbiology 02/12/19 09:16 Blood Venous Aerobic Blood Culture - Final No Growth Day 5 02/12/19 09:16 Blood Venous Anaerobic Blood Culture - Final No Growth Day 5 02/12/19 09:19 Blood Venous Aerobic Blood Culture - Final No Growth Day 5 02/12/19 09:19 Blood Venous Anaerobic Blood Culture - Final No Growth Day 5 02/10/19 13:51 Wound - Left Leg Anaerobic Culture - Final No Growth Day 4 02/10/19 13:51 Leg Left Gram Stain - Final 02/10/19 13:51 Leg Left Wound Culture - Final No Growth Day 4 02/12/19 10:06 Urine Urine Culture - Final Assess/Plan/Problems-Billing Assessment: Mr Maldonado is a 58yo M with PMH of morbid obesity with BMI 44, type 2 DM, CKD stage, PVD, HTN, depression, 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 Hospitalist service consulted for medical management of comorbidities. - Patient Problems (1) Status post below knee amputation of left lower extremity Comment: - Discharging to [facility]. Patient is agreable to this plan. Awaiting insurance authorization - Management as per Ortho. - Pain is controlled (2) Pulmonary nodules Comment: - Patient to follow up with PCP who should order repeat CT in 3 to 6 months. Written on discharge plan. - Pulmonary nodules found on CT and patient states he was aware from previous provider. - Educated on follow up CT in 3 to 6 months (3) Gastric outlet obstruction Comment: - Abd assessment prem. - Reports last BM 02/19/19. Monitor BMs - Developed acutely 02/13/19 and has since resolved - Tolerating diet (4) Chronic kidney disease Comment: - Creatinine at baseline as of 02/20/19 - Follow up with BMP with PCP in 1 to 2 weeks (5) Diabetes Comment: - Glucose mid 100s - Discussed plan with ortho PA yesterday. Recommend discharging on lower dose of Lantus such as 20 units (home dose is 58) given mid 100 FSBG here. In addition I would not recommend restarting mealtime insulin as he was taking at home until further instructed by PCP. I suspect diet is much better here leading to lower FSBG. - Cont ACHS finger sticks at discharge. - A1c is 8. (6) Microcytic anemia Comment: - 9.03/09 as of yesterday. Stable and at baseline. - Chronic issue. - Recommend follow up and further evaluation with PCP after discharge. - Iron and TIBC levels indicate likely anemia of chronic disease. - Stool guaiac for completeness ordered. - Iron PO not initiated due to h/o constipation, N/V (7) Osteomyelitis Comment: - Levofloxacin day 07/07 - Will be discharge on IV Levaquin per ID - Cultures sent in the OR show no growth so far. (8) Sepsis Comment: - Resolved - Met sepsis criteria with tachycardia and leukocytosis 02/12/2019 with source likely stump infection/osteomyelitis. (9) HTN (hypertension) Comment: - Normotensive - Controlled. - Continue Norvasc and Lisinopril. (10) Hyponatremia Comment: - Previously 124 and now 134 as of 02/20/18 - Resolved with IVF - Repeat BMP with PCP in 1 to 2 weeks (11) DVT prophylaxis Comment: - Lovenox Status and Disposition: Hospitalist service will continue to follow daily. Stable for discharge. Discharge per ortho when [employer] insurance authorization complete Attending: Josr Jenkins
[2019-02-21] MEDS: Insulin GLARGINE(*) 1 UNITS UNIT SUBCUT SCH (21:11)
[2019-02-21] MEDS: oxyCODONE TAB* 5 MG TAB PO PRN (23:25)
[2019-02-22] MEDS: Levofloxacin 500 MG IVPREMIX(* 500 MG/100 ML BAG IVPB SCH (09:27)
[2019-02-22] MEDS: Lisinopril TAB* 5 MG PO SCH (09:28)
[2019-02-22] MEDS: Docusate CAP* 100 MG PO SCH ×2 (09:29→21:50)
[2019-02-22] MEDS: Enoxaparin(*) 40 MG/0.4 ML SYR SUBCUT SCH (09:29)
[2019-02-22] MEDS: amLODIPine TAB* 5 MG PO SCH (09:29)
[2019-02-22] MEDS: Magnesium Hydroxide LIQ* 30 ML UDC PO SCH ×2 (09:35→21:51)
[2019-02-22] MEDS: Insulin LISPRO* 1 UNITS UNIT SUBCUT SCH ×3 (09:53→19:03)
--- NOTE | 2019-02-22 11:02 | PN ---
Progress Note - Progress Note Date of Service: 02/22/19 SOAP: Subjective: Pt is doing well. Pain controlled. Denies CP/SOB or F/C Objective: [General: NAD, baseline interaction LLE: Dressing c/d/i, nontender over knee, NVI Vital Signs Temp Pulse Resp BP Pulse Ox 97.5 F 72 17 146/68 95 02/22/19 07:17 02/22/19 07:17 02/22/19 07:17 02/22/19 07:17 02/22/19 07:17 Laboratory Results - last 24 hr 02/21/19 02/21/19 02/21/19 12:04 17:53 21:03 POC Glucose (mg/dL) 147 H 138 H 272 H 02/22/19 08:28 POC Glucose (mg/dL) 160 H Assessment: [] s/p BKA LLE ] Plan: [Con't abx - IV levofloxacin DC to [facility] anticipated for Sunday, awaiting insurance auth lovenox DVT prophy
--- NOTE | 2019-02-22 14:44 | PN ---
Subjective Date of Service: 02/22/19 Interval History: Denies any complaints Family History: Unchanged from Admission Social History: Unchanged from Admission Past Medical History: Unchanged from Admission Objective Active Medications: Amlodipine Besylate (Norvasc Tab*) 5 mg PO DAILY [facility] Last Admin: 02/22/19 09:29 Dose: 5 mg Bisacodyl (Dulcolax Supp*) 10 mg [place] DAILY PRN PRN Reason: CONSTIPATION Dextrose (D50w Syringe 50 Ml*) 12.5 gm IV PUSH .FOR FS < 60 - SS PRN PRN Reason: FS < 60 Docusate Sodium (Colace Cap*) 100 mg PO BID [facility] Last Admin: 02/22/19 09:29 Dose: 100 mg Enoxaparin Sodium (Lovenox(*)) 40 mg SUBCUT DAILY [facility] Last Admin: 02/22/19 09:29 Dose: 40 mg Hydralazine HCl (Apresoline Iv*) 5 mg IV SLOW PU Q6H PRN PRN Reason: HTN Levofloxacin/Dextrose (Levaquin 500 Mg Ivpremix(*)) 500 mg in 100 mls @ 100 mls /hr IVPB Q24HR [facility]; Protocol Last Admin: 02/22/19 09:27 Dose: 100 mls/hr Insulin Glargine (Lantus(*)) 15 units SUBCUT BEDTIME [facility] Last Admin: 02/21/19 21:11 Dose: 15 units Insulin Human Lispro (Humalog*) 0 units SUBCUT AC [facility]; Protocol Last Admin: 02/22/19 14:05 Dose: 20 unit Lisinopril (Prinivil Tab*) 5 mg PO DAILY [facility] Last Admin: 02/22/19 09:28 Dose: 5 mg Magnesium Hydroxide (Milk Of Magnesia Liq*) 30 ml PO BID [facility] Last Admin: 02/22/19 09:35 Dose: Not Given Magnesium Hydroxide (Milk Of Magnesia Liq*) 30 ml PO BID PRN PRN Reason: CONSTIPATION Metoclopramide HCl (Reglan Iv*) 5 mg IV Q6H PRN PRN Reason: NAUSEA/VOMITING Last Admin: 02/17/19 03:25 Dose: 5 mg Oxycodone HCl (Roxycodone Tab*) 5 mg PO Q4H PRN PRN Reason: PAIN - MILD Oxycodone HCl (Roxycodone Tab*) 10 mg PO Q6H PRN PRN Reason: PAIN - SEVERE Last Admin: 02/21/19 23:25 Dose: 10 mg Polyethylene Glycol/Electrolytes (Miralax*) 17 gm PO DAILY PRN PRN Reason: CONSTIPATION Senna (Senokot Tab*) 1 tab PO BEDTIME PRN PRN Reason: CONSTIPATION Last Admin: 02/17/19 08:25 Dose: 1 tab Throat Lozenges (Chloraseptic Sloan*) 1 sloan PO Q6H PRN PRN Reason: SORE THROAT Last Admin: 02/15/19 04:52 Dose: 1 sloan Vital Signs - 8 hr 02/22/19 02/22/19 02/22/19 07:17 11:17 11:30 Temperature 97.5 F 97.8 F 97.9 F Pulse Rate 72 98 68 Respiratory 17 20 17 Rate Blood Pressure 146/68 134/65 135/63 (mmHg) O2 Sat by Pulse 95 97 99 Oximetry Oxygen Devices in Use Now: None Eyes: No Scleral Icterus Neck: NL Appearance and Movements; NL JVP Respiratory: Symmetrical Chest Expansion and Respiratory Effort, Clear to Auscultation Cardiovascular: NL Sounds; No Murmurs; No JVD Abdominal: NL Sounds; No Tenderness; No Distention Extremities: - - bilateral leg amputations Neurological: Alert and Oriented x 3 Result Diagrams: 02/20/19 10:40 02/20/19 10:40 Additional Lab and Data: . Microbiology and Other Data: Microbiology 02/12/19 09:16 Blood Venous Aerobic Blood Culture - Final No Growth Day 5 02/12/19 09:16 Blood Venous Anaerobic Blood Culture - Final No Growth Day 5 02/12/19 09:19 Blood Venous Aerobic Blood Culture - Final No Growth Day 5 02/12/19 09:19 Blood Venous Anaerobic Blood Culture - Final No Growth Day 5 02/10/19 13:51 Wound - Left Leg Anaerobic Culture - Final No Growth Day 4 02/10/19 13:51 Leg Left Gram Stain - Final 02/10/19 13:51 Leg Left Wound Culture - Final No Growth Day 4 02/12/19 10:06 Urine Urine Culture - Final Assess/Plan/Problems-Billing Assessment: Mr Maldonado is a 58yo M with PMH of morbid obesity with BMI 44, type 2 DM, CKD stage, PVD, HTN, depression, 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 Hospitalist service consulted for medical management of comorbidities. - Patient Problems (1) Status post below knee amputation of left lower extremity Current Visit: Yes Status: Acute Code(s): Z89.512 - ACQUIRED ABSENCE OF LEFT LEG BELOW KNEE SNOMED Code(s): 471884057795160 Comment: - Discharging to [facility]. Patient is agreable to this plan. Awaiting insurance authorization - Management as per Ortho. - Pain is controlled (2) Osteomyelitis Current Visit: Yes Status: Acute Code(s): M86.9 - OSTEOMYELITIS, UNSPECIFIED SNOMED Code(s): 55281577 Comment: - Levofloxacin day 08/07 - Will be discharge on IV Levaquin per ID - Cultures sent in the OR show no growth so far. (3) Pulmonary nodules Current Visit: Yes Status: Acute Code(s): R91.8 - OTHER NONSPECIFIC ABNORMAL FINDING OF LUNG FIELD SNOMED Code(s): 576706052 Comment: - Patient to follow up with PCP who should order repeat CT in 3 to 6 months. Written on discharge plan. - Pulmonary nodules found on CT and patient states he was aware from previous provider. - Educated on follow up CT in 3 to 6 months (4) Chronic kidney disease Current Visit: Yes Status: Acute Code(s): N18.9 - CHRONIC KIDNEY DISEASE, UNSPECIFIED SNOMED Code(s): 675701649 Comment: - Creatinine at baseline as of 02/20/19 - Follow up with BMP with PCP in 1 to 2 weeks (5) Diabetes Current Visit: Yes Status: Acute Code(s): E11.9 - TYPE 2 DIABETES MELLITUS WITHOUT COMPLICATIONS SNOMED Code(s): 27367806 Comment: - Glucose mid 100s -Recommended discharging on lower dose of Lantus such as 20 units (home dose is 58) given mid 100 FSBG here. No meal time insulin till seen by pcp. I suspect diet is much better here leading to lower FSBG. - Cont ACHS finger sticks at discharge. - A1c is 8. (6) Gastric outlet obstruction Current Visit: Yes Status: Acute Code(s): K31.1 - ADULT HYPERTROPHIC PYLORIC STENOSIS SNOMED Code(s): 105970912 Comment: - Abd steve amaro. - Reports last BM 02/19/19. Monitor BMs - Developed acutely 02/13/19 and has since resolved - Tolerating diet (7) Microcytic anemia Current Visit: Yes Status: Acute Code(s): D50.9 - IRON DEFICIENCY ANEMIA, UNSPECIFIED SNOMED Code(s): 255841500 Comment: Stable and at baseline. - Chronic issue. - Recommend follow up and further evaluation with PCP after discharge. - Iron and TIBC levels indicate likely anemia of chronic disease. - Stool guaiac for completeness ordered. - Iron PO not initiated due to h/o constipation, N/V (8) Sepsis Current Visit: Yes Status: Acute Comment: - Resolved - Met sepsis criteria with tachycardia and leukocytosis 02/12/2019 with source likely stump infection/osteomyelitis. (9) HTN (hypertension) Current Visit: Yes Status: Chronic Code(s): I10 - ESSENTIAL (PRIMARY) HYPERTENSION SNOMED Code(s): 13636717 Comment: - Normotensive - Controlled. - Continue Norvasc and Lisinopril. (10) DVT prophylaxis Current Visit: Yes Status: Acute Code(s): VGR3946 - SNOMED Code(s): 855032739 Comment: - Lovenox Status and Disposition: Hospitalist service will continue to follow daily. Stable for discharge. Discharge per ortho when [employer] insurance authorization complete
[2019-02-22] MEDS: Insulin GLARGINE(*) 1 UNITS UNIT SUBCUT SCH (21:49)
[2019-02-23 06:05] LABS: ABS Basophils 0.1 10^3/ul (0-0.2); ABS Eosinophils 0.5 10^3/ul (0-0.6); ABS Lymphocytes 1.7 10^3/ul (1.0-4.8); ABS Monocytes 1.1 10^3/ul (0-0.8); ABS Neutrophils 8.8 10^3/ul (1.5-7.7); Hematocrit 32 % (42-52); Hemoglobin 9.9 g/dL (14.0-18.0); Lymphocyte % 13.9 %; Mean Corpuscular HGB Conc 31 g/dL (31-36); Mean Corpuscular Hemoglobin 21 pg (27-31); Mean Corpuscular Volume 69 fL (80-94); Mean Platelet Volume 6.7 fL (7.4-10.4); Platelet Count 421 10^3/uL (150-450); Red Blood Count 4.66 10^6 /uL (4.18-5.48); Red Cell Distribution Width 22 % (10-15); White Blood Count 12.3 10^3/uL (3.5-10.8)
[2019-02-23 06:14] LABS: BUN/Creatinine Ratio 22.3 (8-20); EGFR African American 69.1 (>60); EGFR Non-African American 57.1 (>60); Potassium 4.4 mmol/L (3.5-5.0)
[2019-02-23] MEDS: Levofloxacin 500 MG IVPREMIX(* 500 MG/100 ML BAG IVPB SCH (09:40)
[2019-02-23] MEDS: Enoxaparin(*) 40 MG/0.4 ML SYR SUBCUT SCH (09:41)
[2019-02-23] MEDS: Docusate CAP* 100 MG PO SCH ×2 (09:41→20:52)
[2019-02-23] MEDS: Insulin LISPRO* 1 UNITS UNIT SUBCUT SCH ×3 (09:41→17:55)
[2019-02-23] MEDS: amLODIPine TAB* 5 MG PO SCH (09:41)
[2019-02-23] MEDS: Magnesium Hydroxide LIQ* 30 ML UDC PO SCH ×2 (09:42→20:52)
[2019-02-23] MEDS: Lisinopril TAB* 5 MG PO SCH (09:42)
--- NOTE | 2019-02-23 11:07 | PN ---
Progress Note - Progress Note Date of Service: 02/23/19 SOAP: Subjective: Pt is doing well. Pain is controlled. Denies F/C, CP/SOB. Objective: PE- 58 y/o WDWN M NAD LLE- dressing changed, inc c/d/i with no sign of infxn, knee NT and able to F/E , NVI Laboratory Results - last 24 hr 02/22/19 02/22/19 02/22/19 11:45 16:37 21:58 WBC RBC Hgb Hct MCV MCH MCHC RDW Plt Count MPV Neut % (Auto) Lymph % (Auto) [place] % (Auto) Eos % (Auto) Baso % (Auto) Absolute Neuts (auto) Absolute Lymphs (auto) Absolute Monos (auto) Absolute Eos (auto) Absolute Basos (auto) Absolute Nucleated RBC Nucleated RBC % Sodium Potassium Chloride Carbon Dioxide Anion Gap BUN Creatinine Est GFR ( Amer) Est GFR (Non-Af Amer) BUN/Creatinine Ratio Glucose POC Glucose (mg/dL) 162 H 191 H 185 H Calcium 02/23/19 02/23/19 05:48 05:48 WBC 12.3 H RBC 4.66 Hgb 9.9 L Hct 32 L MCV 69 L MCH 21 L MCHC 31 RDW 22 H Plt Count 421 MPV 6.7 L Neut % (Auto) 71.9 Lymph % (Auto) 13.9 [place] % (Auto) 9.3 Eos % (Auto) 4.0 Baso % (Auto) 0.9 Absolute Neuts (auto) 8.8 H Absolute Lymphs (auto) 1.7 Absolute Monos (auto) 1.1 H Absolute Eos (auto) 0.5 Absolute Basos (auto) 0.1 Absolute Nucleated RBC 0.0 Nucleated RBC % 0.0 Sodium 135 Potassium 4.4 Chloride 103 Carbon Dioxide 25 Anion Gap 7 BUN 29 H Creatinine 1.30 H Est GFR ( Amer) 69.1 Est GFR (Non-Af Amer) 57.1 BUN/Creatinine Ratio 22.3 H Glucose 166 H POC Glucose (mg/dL) Calcium 9.0 Vital Signs Temp Pulse Resp BP Pulse Ox 98 F 69 18 162/72 96 02/23/19 07:32 02/23/19 07:32 02/23/19 07:32 02/23/19 07:32 02/23/19 07:32 Assessment: [] s/p AIXA HARVEYE ] Plan: [Con't abx - IV levofloxacin Dressing changed, healing well DC to [facility] anticipated for Sunday, awaiting insurance auth alice DVT prophy
--- NOTE | 2019-02-23 13:42 | PN ---
Subjective Date of Service: 02/23/19 Interval History: Denies any complaints.No sob no cp Family History: Unchanged from Admission Social History: Unchanged from Admission Past Medical History: Unchanged from Admission Objective Active Medications: Amlodipine Besylate (Norvasc Tab*) 5 mg PO DAILY [facility] Last Admin: 02/23/19 09:41 Dose: 5 mg Bisacodyl (Dulcolax Supp*) 10 mg CO DAILY PRN PRN Reason: CONSTIPATION Dextrose (D50w Syringe 50 Ml*) 12.5 gm IV PUSH .FOR FS < 60 - SS PRN PRN Reason: FS < 60 Docusate Sodium (Colace Cap*) 100 mg PO BID [facility] Last Admin: 02/23/19 09:41 Dose: 100 mg Enoxaparin Sodium (Lovenox(*)) 40 mg SUBCUT DAILY [facility] Last Admin: 02/23/19 09:41 Dose: 40 mg Hydralazine HCl (Apresoline Iv*) 5 mg IV SLOW PU Q6H PRN PRN Reason: HTN Levofloxacin/Dextrose (Levaquin 500 Mg Ivpremix(*)) 500 mg in 100 mls @ 100 mls /hr IVPB Q24HR [facility]; Protocol Last Admin: 02/23/19 09:40 Dose: 100 mls/hr Insulin Glargine (Lantus(*)) 15 units SUBCUT BEDTIME [facility] Last Admin: 02/22/19 21:49 Dose: 15 units Insulin Human Lispro (Humalog*) 0 units SUBCUT AC [facility]; Protocol Last Admin: 02/23/19 09:41 Dose: 6 unit Lisinopril (Prinivil Tab*) 5 mg PO DAILY [facility] Last Admin: 02/23/19 09:42 Dose: 5 mg Magnesium Hydroxide (Milk Of Magnesia Liq*) 30 ml PO BID [facility] Last Admin: 02/23/19 09:42 Dose: Not Given Magnesium Hydroxide (Milk Of Magnesia Liq*) 30 ml PO BID PRN PRN Reason: CONSTIPATION Metoclopramide HCl (Reglan Iv*) 5 mg IV Q6H PRN PRN Reason: NAUSEA/VOMITING Last Admin: 02/17/19 03:25 Dose: 5 mg Polyethylene Glycol/Electrolytes (Miralax*) 17 gm PO DAILY PRN PRN Reason: CONSTIPATION Senna (Senokot Tab*) 1 tab PO BEDTIME PRN PRN Reason: CONSTIPATION Last Admin: 02/17/19 08:25 Dose: 1 tab Throat Lozenges (Chloraseptic Sloan*) 1 sloan PO Q6H PRN PRN Reason: SORE THROAT Last Admin: 02/15/19 04:52 Dose: 1 solan Vital Signs - 8 hr 02/23/19 02/23/19 02/23/19 07:32 08:00 11:13 Temperature 98 F 97.6 F Pulse Rate 69 69 Respiratory 18 18 17 Rate Blood Pressure 162/72 145/70 (mmHg) O2 Sat by Pulse 96 99 Oximetry Oxygen Devices in Use Now: None Eyes: No Scleral Icterus Ears/Nose/Mouth/Throat: NL Teeth, Lips, Gums Neck: NL Appearance and Movements; NL JVP Respiratory: Symmetrical Chest Expansion and Respiratory Effort, Clear to Auscultation Cardiovascular: NL Sounds; No Murmurs; No JVD Abdominal: NL Sounds; No Tenderness; No Distention Extremities: - - bilateral LE amputation Neurological: Alert and Oriented x 3 Result Diagrams: 02/23/19 05:48 02/23/19 05:48 Additional Lab and Data: . Microbiology and Other Data: Microbiology 02/12/19 09:16 Blood Venous Aerobic Blood Culture - Final No Growth Day 5 02/12/19 09:16 Blood Venous Anaerobic Blood Culture - Final No Growth Day 5 02/12/19 09:19 Blood Venous Aerobic Blood Culture - Final No Growth Day 5 02/12/19 09:19 Blood Venous Anaerobic Blood Culture - Final No Growth Day 5 02/10/19 13:51 Wound - Left Leg Anaerobic Culture - Final No Growth Day 4 02/10/19 13:51 Leg Left Gram Stain - Final 02/10/19 13:51 Leg Left Wound Culture - Final No Growth Day 4 02/12/19 10:06 Urine Urine Culture - Final Assess/Plan/Problems-Billing Assessment: Mr Maldonado is a 58yo M with PMH of morbid obesity with BMI 44, type 2 DM, CKD stage, PVD, HTN, depression, 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 Hospitalist service consulted for medical management of comorbidities. - Patient Problems (1) Status post below knee amputation of left lower extremity Current Visit: Yes Status: Acute Code(s): Z89.512 - ACQUIRED ABSENCE OF LEFT LEG BELOW KNEE SNOMED Code(s): 909995495849139 Comment: - Discharging to [facility]. Patient is agreable to this plan. Awaiting insurance authorization - Management as per Ortho. - Pain is controlled (2) Osteomyelitis Current Visit: Yes Status: Acute Code(s): M86.9 - OSTEOMYELITIS, UNSPECIFIED SNOMED Code(s): 34626973 Comment: - Levofloxacin day 09/06 - Will be discharge on IV Levaquin per ID - Cultures sent in the OR show no growth so far. (3) Pulmonary nodules Current Visit: Yes Status: Acute Code(s): R91.8 - OTHER NONSPECIFIC ABNORMAL FINDING OF LUNG FIELD SNOMED Code(s): 044441419 Comment: - Patient to follow up with PCP who should order repeat CT in 3 to 6 months. Written on discharge plan. - Pulmonary nodules found on CT and patient states he was aware from previous provider. - Educated on follow up CT in 3 to 6 months (4) Chronic kidney disease Current Visit: Yes Status: Acute Code(s): N18.9 - CHRONIC KIDNEY DISEASE, UNSPECIFIED SNOMED Code(s): 683757491 Comment: - H/o interstial nephritis requiring dialysis due to cefepime in the remote past per notes -Cr mild bump still in range -Repeat UA - Follow up with BMP in 1 week. If elevated, would need to eval as levaquin can predispose to AIN as well -so far stable -will continue lisinopril for now -encourage po intake in the periop period as predisposed to pre renal causes -f/u bmp in am (5) Diabetes Current Visit: Yes Status: Acute Code(s): E11.9 - TYPE 2 DIABETES MELLITUS WITHOUT COMPLICATIONS SNOMED Code(s): 77408568 Comment: - Glucose mid 100s -Recommended discharging on lower dose of Lantus such as 20 units (home dose is 58) given mid 100 FSBG here. No meal time insulin till seen by pcp. I suspect diet is much better here leading to lower FSBG. - Cont ACHS finger sticks at discharge. - A1c is 8. (6) Gastric outlet obstruction Current Visit: Yes Status: Acute Code(s): K31.1 - ADULT HYPERTROPHIC PYLORIC STENOSIS SNOMED Code(s): 388380184 Comment: - Abd assessment prem. - Reports last BM 02/19/19. Monitor BMs - Developed acutely 02/13/19 and has since resolved - Tolerating diet (7) Microcytic anemia Current Visit: Yes Status: Acute Code(s): D50.9 - IRON DEFICIENCY ANEMIA, UNSPECIFIED SNOMED Code(s): 360480815 Comment: Stable and at baseline. - Chronic issue. - Recommend follow up and further evaluation with PCP after discharge. - Iron and TIBC levels indicate likely anemia of chronic disease. - Stool guaiac for completeness ordered. - Iron PO not initiated due to h/o constipation, N/V (8) Sepsis Current Visit: Yes Status: Acute Comment: - Resolved - Met sepsis criteria with tachycardia and leukocytosis 02/12/2019 with source likely stump infection/osteomyelitis. (9) HTN (hypertension) Current Visit: Yes Status: Chronic Code(s): I10 - ESSENTIAL (PRIMARY) HYPERTENSION SNOMED Code(s): 75160496 Comment: - Normotensive - Controlled. - Continue Norvasc and Lisinopril. (10) DVT prophylaxis Current Visit: Yes Status: Acute Code(s): NVV5160 - SNOMED Code(s): 430460529 Comment: - Lovenox Status and Disposition: Hospitalist service will continue to follow daily. Stable for discharge. Discharge per ortho when [employer] insurance authorization complete
[2019-02-23] MEDS: FLUoxetine CAP* 20 MG PO SCH (14:47)
[2019-02-23] MEDS: ALPRAZolam TAB* 0.5 MG PO PRN (18:58)
[2019-02-23] MEDS: Insulin GLARGINE(*) 1 UNITS UNIT SUBCUT SCH (21:02)
[2019-02-24 05:04] LABS: ABS Basophils 0.1 10^3/ul (0-0.2); ABS Eosinophils 0.5 10^3/ul (0-0.6); ABS Lymphocytes 2.1 10^3/ul (1.0-4.8); Eosinophil % 3.9 %; Hematocrit 32 % (42-52); Hemoglobin 10.1 g/dL (14.0-18.0); Lymphocyte % 16.3 %; Mean Corpuscular HGB Conc 32 g/dL (31-36); Mean Corpuscular Hemoglobin 22 pg (27-31); Mean Corpuscular Volume 68 fL (80-94); Mean Platelet Volume 6.6 fL (7.4-10.4); Platelet Count 418 10^3/uL (150-450); Red Blood Count 4.72 10^6 /uL (4.18-5.48); Red Cell Distribution Width 22 % (10-15); White Blood Count 12.7 10^3/uL (3.5-10.8)
[2019-02-24 05:20] LABS: BUN/Creatinine Ratio 20.9 (8-20); Calcium 9.1 mg/dL (8.6-10.3); EGFR African American 69.7 (>60); EGFR Non-African American 57.6 (>60); Potassium 4.4 mmol/L (3.5-5.0)
--- NOTE | 2019-02-24 09:15 | PN ---
Progress Note - Progress Note Date of Service: 02/24/19 Note: Medicine will sign off. Please call if needed Thank you very much for consult
[2019-02-24] MEDS: Insulin LISPRO* 1 UNITS UNIT SUBCUT SCH ×2 (10:23→14:02)
[2019-02-24] MEDS: Levofloxacin 500 MG IVPREMIX(* 500 MG/100 ML BAG IVPB SCH (10:24)
[2019-02-24] MEDS: FLUoxetine CAP* 20 MG PO SCH (10:25)
[2019-02-24] MEDS: Lisinopril TAB* 5 MG PO SCH (10:25)
[2019-02-24] MEDS: amLODIPine TAB* 5 MG PO SCH (10:25)
[2019-02-24] MEDS: Docusate CAP* 100 MG PO SCH ×2 (10:25→22:38)
[2019-02-24] MEDS: Enoxaparin(*) 40 MG/0.4 ML SYR SUBCUT SCH (10:25)
[2019-02-24] MEDS: Magnesium Hydroxide LIQ* 30 ML UDC PO SCH ×2 (10:26→22:38)
--- NOTE | 2019-02-24 12:04 | PN ---
Progress Note - Progress Note Date of Service: 02/24/19 SOAP: Subjective: []Pt seen OOB in chair. He feels well today, denies fever, chills, LLE pain. Objective: []Gen: NAD, in good spirits LLE: Dressing CDI, no erythema proximally. Assessment: []s/p BKA LLE ] Plan: [Con't abx - IV levofloxacin DC to [facility] awaiting insurance auth lovenox DVT prophy Vital Signs Temp 97.1 F 02/24/19 11:15 Pulse 68 02/24/19 11:15 Resp 18 02/24/19 11:15 BP 125/69 02/24/19 11:15 Pulse Ox 97 02/24/19 11:15 Intake & Output 02/23/19 02/24/19 02/24/19 18:59 06:59 18:59 Intake Total 870 600 Output Total 800 575 325 Balance 70 25 -325 Intake: Oral 870 600 Output: Urine 800 575 325 Other: # Bowel Movements 0 Laboratory Last Values WBC 12.7 10^3/uL (3.5-10.8) H 02/24/19 04:56 RBC 4.72 10^6 /uL (4.18-5.48) 02/24/19 04:56 Hgb 10.1 g/dL (14.0-18.0) L 02/24/19 04:56 Hct 32 % (42-52) L 02/24/19 04:56 MCV 68 fL (80-94) L 02/24/19 04:56 MCH 22 pg (27-31) L 02/24/19 04:56 MCHC 32 g/dL (31-36) 02/24/19 04:56 RDW 22 % (10-15) H 02/24/19 04:56 Plt Count 418 10^3/uL (150-450) 02/24/19 04:56 MPV 6.6 fL (7.4-10.4) L 02/24/19 04:56 Neut % (Auto) 71.4 % 02/24/19 04:56 Lymph % (Auto) 16.3 % 02/24/19 04:56 [place] % (Auto) 7.6 % 02/24/19 04:56 Eos % (Auto) 3.9 % 02/24/19 04:56 Baso % (Auto) 0.8 % 02/24/19 04:56 Absolute Neuts (auto) 9.0 10^3/ul (1.5-7.7) H 02/24/19 04:56 Absolute Lymphs (auto) 2.1 10^3/ul (1.0-4.8) 02/24/19 04:56 Absolute Monos (auto) 1.0 10^3/ul (0-0.8) H 02/24/19 04:56 Absolute Eos (auto) 0.5 10^3/ul (0-0.6) 02/24/19 04:56 Absolute Basos (auto) 0.1 10^3/ul (0-0.2) 02/24/19 04:56 Absolute Nucleated RBC 0.0 10^3/ul 02/24/19 04:56 Nucleated RBC % 0.0 02/24/19 04:56 Sodium 134 mmol/L (135-145) L 02/24/19 04:56 Potassium 4.4 mmol/L (3.5-5.0) 02/24/19 04:56 Chloride 101 mmol/L (101-111) 02/24/19 04:56 Carbon Dioxide 26 mmol/L (22-32) 02/24/19 04:56 Anion Gap 7 mmol/L (2-11) 02/24/19 04:56 BUN 27 mg/dL (6-24) H 02/24/19 04:56 Creatinine 1.29 mg/dL (0.67-1.17) H 02/24/19 04:56 Est GFR ( Amer) 69.7 (>60) 02/24/19 04:56 Est GFR (Non-Af Amer) 57.6 (>60) 02/24/19 04:56 BUN/Creatinine Ratio 20.9 (8-20) H 02/24/19 04:56 Glucose 152 mg/dL (70-100) H 02/24/19 04:56 POC Glucose (mg/dL) 149 mg/dL (70-100) H 02/24/19 08:16 Hemoglobin A1c 8.0 % (4.0-5.6) H 02/12/19 06:23 Lactic Acid 0.6 mmol/L (0.5-2.0) 02/12/19 09:16 Calcium 9.1 mg/dL (8.6-10.3) 02/24/19 04:56 Magnesium 2.3 mg/dL (1.9-2.7) 02/14/19 08:27 Iron 28 ug/dL (50-212) L 02/17/19 08:31 TIBC 311 mcg/dL (250-450) 02/17/19 08:31 % Saturation 9 % (15-55) L 02/17/19 08:31 Unsat Iron Binding < 296 ug/dL 02/17/19 08:31 Transferrin 222 mg/dL (203-362) 02/17/19 08:31 Urine Color Yellow 02/12/19 10:06 Urine Appearance Cloudy 02/12/19 10:06 Urine pH 5.0 (5-9) 02/12/19 10:06 Ur Specific [place] 1.010 (1.010-1.030) 02/12/19 10:06 Urine Protein 1+(30 mg/dl) (Negative) A 02/12/19 10:06 Urine Ketones Negative (Negative) 02/12/19 10:06 Urine Blood 1+ (Negative) A 02/12/19 10:06 Urine Nitrate Negative (Negative) 02/12/19 10:06 Urine Bilirubin Negative (Negative) 02/12/19 10:06 Urine Urobilinogen Negative (Negative) 02/12/19 10:06 Ur Leukocyte Esterase Negative (Negative) 02/12/19 10:06 Urine WBC (Auto) Trace(0-5/hpf) (Absent) 02/12/19 10:06 Urine RBC (Auto) Trace(0-2/hpf) (Absent) 02/12/19 10:06 Ur Squamous Epith Cells Present (Absent) A 02/12/19 10:06 Urine Bacteria Absent (Absent) 02/12/19 10:06 Urine Glucose Negative (Negative) 02/12/19 10:06 Vancomycin Trough 17.9 mcg/mL 02/16/19 13:51 Random Vancomycin 10.6 mcg/mL 02/13/19 05:57
--- NOTE | 2019-02-24 12:49 | PN ---
Progress Note - Progress Note Date of Service: 02/24/19 SOAP: Subjective: CC: Left foot infection HPI: Mr. Maldonado is a 58 yo male with PMH significant for chronic left foot osteomyelitis, CKD stage 2, DM2 with diabetic neuropathy, morbid obesity, PVD, depression, and HLD; who presented to the hospital with a left LE infection and is s/p a left BKA. Denies fever, chills, nausea, vomiting, diarrhea, constipation, or pain in the left stump. Reports he is passing flatus. Objective: Vital Signs - 8 hr 02/24/19 02/24/19 02/24/19 07:29 08:40 11:15 Temperature 98 F 97.1 F Pulse Rate 67 68 Respiratory 18 18 18 Rate Blood Pressure 123/68 125/69 (mmHg) O2 Sat by Pulse 97 97 Oximetry Physical Exam: General: NAD, sitting up in a chair Neurological: Alert and Oriented x4 HEENT: Moist MM, no thrush Cardiovascular: Heart rate regular, no murmur Respiratory: Lung sounds clear bilateral Abdominal: Bowel sounds present; ABD soft, large and non tender Skin: No rash. Dressing to the left stump, no surrounding erythema proximal to the dressing Laboratory Results - last 24 hr 02/23/19 02/23/19 02/24/19 16:34 20:54 04:56 WBC 12.7 H RBC 4.72 Hgb 10.1 L Hct 32 L MCV 68 L MCH 22 L MCHC 32 RDW 22 H Plt Count 418 MPV 6.6 L Neut % (Auto) 71.4 Lymph % (Auto) 16.3 [place] % (Auto) 7.6 Eos % (Auto) 3.9 Baso % (Auto) 0.8 Absolute Neuts (auto) 9.0 H Absolute Lymphs (auto) 2.1 Absolute Monos (auto) 1.0 H Absolute Eos (auto) 0.5 Absolute Basos (auto) 0.1 Absolute Nucleated RBC 0.0 Nucleated RBC % 0.0 02/24/19 02/24/19 04:56 08:16 Sodium 134 L Potassium 4.4 Chloride 101 Carbon Dioxide 26 Anion Gap 7 BUN 27 H Creatinine 1.29 H Est GFR ( Amer) 69.7 Est GFR (Non-Af Amer) 57.6 BUN/Creatinine Ratio 20.9 H Glucose 152 H POC Glucose (mg/dL) 149 H Calcium 9.1 Microbiology 02/12/19 09:16 Aerobic Blood Culture - Final Blood Venous No Growth Day 5 Anaerobic Blood Culture - Final No Growth Day 5 02/12/19 09:19 Aerobic Blood Culture - Final Blood Venous No Growth Day 5 Anaerobic Blood Culture - Final No Growth Day 5 02/10/19 13:51 Anaerobic Culture - Final Wound - Left Leg No Growth Day 4 02/10/19 13:51 Gram Stain - Final Leg Left Wound Culture - Final No Growth Day 4 02/12/19 10:06 Urine Culture - Final Urine Assessment: 1. Left LE chronic osteomyelitis. S/P left BKA, POD #14. Wound cultures with no growth, day 4. Blood cultures with no growth, day 5. Afebrile and continues to have mild leukocytosis. Per orthopedics incision looked ok with dressing change last week. 2. Leukocytosis. Stable. 3. DM2 with peripheral neuropathy. 4. Morbid obesity. BMI 44.6. Plan: Continue Levaquin, day . Continue IV Levaquin for a total of 21 days, then change to PO Levaquin for 1 week to complete a 28 day course of ABX. Followup with ID outpatient 1-2 weeks after discharge.
[2019-02-24] MEDS ORDERED: Insulin LISPRO* 1 UNITS UNIT SUBCUT ONE (22:09)
[2019-02-24] MEDS: Insulin GLARGINE(*) 1 UNITS UNIT SUBCUT SCH (22:37)
[2019-02-25] MEDS: Insulin LISPRO* 1 UNITS UNIT SUBCUT SCH ×3 (04:38→13:00)
[2019-02-25 08:01] VITALS: BP 130/64
[2019-02-25] MEDS: Docusate CAP* 100 MG PO SCH (10:15)
[2019-02-25] MEDS: FLUoxetine CAP* 20 MG PO SCH (10:15)
[2019-02-25] MEDS: amLODIPine TAB* 5 MG PO SCH (10:15)
[2019-02-25] MEDS: Enoxaparin(*) 40 MG/0.4 ML SYR SUBCUT SCH (10:15)
[2019-02-25] MEDS: Levofloxacin 500 MG IVPREMIX(* 500 MG/100 ML BAG IVPB SCH (10:16)
[2019-02-25] MEDS: Magnesium Hydroxide LIQ* 30 ML UDC PO SCH (10:17)
[2019-02-25] MEDS: Lisinopril TAB* 5 MG PO SCH (10:17)
[2019-02-25] MEDS: ALPRAZolam TAB* 0.5 MG PO PRN (10:49)
== END 2019-02-25 13:58 | DRG 305 ==
LOC: AA 10:17 → SSU 17:15
PROVIDERS: ADMIT Orthopaedic Surgery; ATTEND Orthopaedic Surgery
PROC: 0Y6J0Z1 Detachment at Left Lower Leg, High, Open Approach (ICD-10-PCS; principal; 2019-02-10 12:15)
DX: T87.44 Infection of amputation stump, left lower extremity (principal); A41.9 Sepsis, unspecified organism; M86.672 Other chronic osteomyelitis, left ankle and foot; F84.5 Asperger's syndrome; N17.9 Acute kidney failure, unspecified; K31.1 Adult hypertrophic pyloric stenosis; E87.1 Hypo-osmolality and hyponatremia; Z68.41 Body mass index [BMI] 40.0-44.9, adult; E11.69 Type 2 diabetes mellitus with other specified complication; E66.01 Morbid (severe) obesity due to excess calories; E11.621 Type 2 diabetes mellitus with foot ulcer; E11.22 Type 2 diabetes mellitus with diabetic chronic kidney disease; E11.51 Type 2 diabetes mellitus with diabetic peripheral angiopathy without gangrene; I12.9 Hypertensive chronic kidney disease with stage 1 through stage 4 chronic kidney disease, or unspecified chronic kidney disease; E11.40 Type 2 diabetes mellitus with diabetic neuropathy, unspecified; F41.9 Anxiety disorder, unspecified; N18.2 Chronic kidney disease, stage 2 (mild); E11.65 Type 2 diabetes mellitus with hyperglycemia; E78.5 Hyperlipidemia, unspecified; F43.10 Post-traumatic stress disorder, unspecified; F33.41 Major depressive disorder, recurrent, in partial remission; J02.9 Acute pharyngitis, unspecified; R32 Unspecified urinary incontinence; R91.8 Other nonspecific abnormal finding of lung field; E11.649 Type 2 diabetes mellitus with hypoglycemia without coma; D50.9 Iron deficiency anemia, unspecified; Y83.5 Amputation of limb(s) as the cause of abnormal reaction of the patient, or of later complication, without mention of misadventure at the time of the procedure; Y92.9 Unspecified place or not applicable; Z87.891 Personal history of nicotine dependence; Z89.431 Acquired absence of right foot; Z88.1 Allergy status to other antibiotic agents; Z56.0 Unemployment, unspecified; Z89.432 Acquired absence of left foot; Z79.4 Long term (current) use of insulin
CPT/HCPCS: 36415; 71045; 74019; 74176; 80048; 80202; 81003; 81015; 83036; 83540; 83550; 83605; 83735; 84300; 85014; 85018; 85025; 85049; 87040; 87070; 87073; 87086; 87205; 88305; 88307; 88311; A9270-GY; G8978-GP-CM; G8979-GP-CI; J0330; J0360; J0780; J1170; J1650; J1885; J1956; J2250; J2270; J2405; J2710; J2765; J3010; J3370; J3490

== ENCOUNTER 2020-05-03 18:04 | Inpatient (IN) ==
[2020-05-03 19:18] LABS: Hematocrit 37 % (42-52); Hemoglobin 11.8 g/dL (14.0-18.0); Mean Corpuscular HGB Conc 32 g/dL (31-36); Mean Corpuscular Hemoglobin 23 pg (27-31); Mean Corpuscular Volume 71 fL (80-94); Mean Platelet Volume 7.3 fL (7.4-10.4); Platelet Count 321 10^3/uL (150-450); Red Blood Count 5.19 10^6 /uL (4.18-5.48); Red Cell Distribution Width 21 % (10-15); White Blood Count 10.4 10^3/uL (3.5-10.8)
[2020-05-03 19:21] LABS: ALT 15 U/L (7-52); Albumin/Globulin Ratio 0.8 (1-3); Alkaline Phosphatase 120 U/L (34-104); BUN/Creatinine Ratio 16.4 (8-20); Blood Urea Nitrogen 20 mg/dL (6-24); CO2 Carbon Dioxide 27 mmol/L (22-32); Calcium 8.4 mg/dL (8.6-10.3); Chloride 102 mmol/L (101-111); EGFR African American 73.8 (>60); Globulin 3.8 g/dL (2-4); Glucose 178 mg/dL (70-100); Sodium 135 mmol/L (135-145); Total Protein 6.8 g/dL (6.4-8.9)
[2020-05-03 19:24] LABS: AST 18 U/L (13-39); Anion Gap 6 mmol/L (2-11); Potassium 4.5 mmol/L (3.5-5.0)
[2020-05-03] MEDS ORDERED: Furosemide 40 mg/4 ml IV VIAL IV SLOW PU ONE (19:32)
[2020-05-03] MEDS ORDERED: Furosemide 40 mg/4 ml IV VIAL ONE (20:24)
[2020-05-03 20:43] LABS: ABS Basophils 0.1 10^3/ul (0-0.2); ABS Eosinophils 0.2 10^3/ul (0-0.6); ABS Lymphocytes 1.1 10^3/ul (1.0-4.8); ABS Monocytes 0.9 10^3/ul (0-0.8); ABS Neutrophils 8.1 10^3/ul (1.5-7.7); Eosinophil % 1.9 %; Microcytosis 1+; Polychromasia 1+
[2020-05-03] MEDS ORDERED: Ondansetron 4 mg VIAL 2 MG/ML 2 ml VIAL IV PRN (20:45)
[2020-05-03] MEDS ORDERED: Dextrose 50% Syringe 50 ml 25 GM/50 ML SYRINGE IV PUSH PRN ×2 (20:53→21:33)
[2020-05-03 22:12] LABS: Cholesterol 181 mg/dL; HDL Cholesterol 35.8 mg/dL; LDL Cholesterol 116 mg/dL; Triglycerides 144 mg/dL
[2020-05-03 22:22] LABS: Troponin I 0.05 ng/mL (<0.03)
[2020-05-03] MEDS: Insulin GLARGINE 100 un/ml 10 ml VIAL SUBCUT SCH (23:05)
[2020-05-03] MEDS: Enoxaparin 40 MG/0.4 ML SYR SUBCUT SCH (23:05)
[2020-05-04 03:34] LABS: Urine Appearance Clear; Urine Bilirubin Negative (Negative); Urine Blood 1+ (Negative); Urine Color Yellow; Urine Glucose Negative (Negative); Urine Ketones Negative (Negative); Urine Nitrite Negative (Negative); Urine Protein 2+(100 mg/dL) (Negative); Urine Specific Gravity 1.009 (1.010-1.030); Urine Urobilinogen Negative (Negative)
[2020-05-04 03:43] LABS: Urine Bacteria Absent (Absent); Urine Red Blood Cell Trace(0-2/hpf) (Absent); Urine Squamous Epithelial Cell Present (Absent); Urine White Blood Cell Trace(0-5/hpf) (Absent)
[2020-05-04 07:09] LABS: ABS Basophils 0.1 10^3/ul (0-0.2); ABS Eosinophils 0.3 10^3/ul (0-0.6); ABS Lymphocytes 1.3 10^3/ul (1.0-4.8); ABS Neutrophils 7.5 10^3/ul (1.5-7.7); Eosinophil % 2.7 %; Hematocrit 37 % (42-52); Hemoglobin 11.9 g/dL (14.0-18.0); Lymphocyte % 13.1 %; Mean Corpuscular HGB Conc 33 g/dL (31-36); Mean Corpuscular Hemoglobin 23 pg (27-31); Mean Corpuscular Volume 72 fL (80-94); Mean Platelet Volume 7.7 fL (7.4-10.4); Platelet Count 325 10^3/uL (150-450); Red Blood Count 5.08 10^6 /uL (4.18-5.48); Red Cell Distribution Width 21 % (10-15); White Blood Count 10.2 10^3/uL (3.5-10.8)
[2020-05-04] MEDS ORDERED: Perflutren Lipid Microsphere 3 ML VIAL ONE (08:29)
[2020-05-04] MEDS ORDERED: Furosemide 40 mg/4 ml IV VIAL IV SLOW PU SCH (09:00)
[2020-05-04] MEDS: Polyethylene Glycol 3350 17 GM PACKET PO SCH (09:06)
[2020-05-04] MEDS ORDERED: Vancomycin 2000 MG X 1 dose IVPB ONE (18:00)
[2020-05-04] MEDS ORDERED: Vancomycin per Pharmacy 1 EA NOTE FOLLOW UP SCH (18:00)
[2020-05-04 19:07] LABS: BUN/Creatinine Ratio 13.2 (8-20); Calcium 8.4 mg/dL (8.6-10.3); EGFR Non-African American 50.4 (>60); Potassium 3.7 mmol/L (3.5-5.0)
[2020-05-04] MEDS ORDERED: Lorazepam PYXIS KEY PRN (19:52)
[2020-05-04] MEDS ORDERED: LORazepam 2 mg VIAL 1 ml IV PUSH ONE (19:52)
[2020-05-04] MEDS ORDERED: Furosemide 20 mg/2 ml IV VIAL IV SLOW PU ONE (20:53)
[2020-05-04] MEDS: Enoxaparin 40 MG/0.4 ML SYR SUBCUT SCH (21:58)
[2020-05-04] MEDS: Insulin GLARGINE 100 un/ml 10 ml VIAL SUBCUT SCH (22:00)
[2020-05-04] MEDS: metroNIDAZOLE IV 500 MG/100ML 500 MG/100 ML BAG IVPB SCH (22:41)
[2020-05-05] MEDS: Vancomycin(*) 1,250 MG IV Q8H IVPB SCH ×2 (02:02→12:27)
[2020-05-05] MEDS: Polyethylene Glycol 3350 17 GM PACKET PO SCH (08:06)
[2020-05-05 08:44] LABS: INR 1.3 (0.82-1.09)
[2020-05-05 08:49] LABS: ABS Basophils 0.1 10^3/ul (0-0.2); ABS Eosinophils 0.3 10^3/ul (0-0.6); ABS Lymphocytes 1.2 10^3/ul (1.0-4.8); ABS Neutrophils 6.6 10^3/ul (1.5-7.7); Eosinophil % 2.9 %; Hematocrit 36 % (42-52); Hemoglobin 11.6 g/dL (14.0-18.0); Lymphocyte % 12.9 %; Mean Corpuscular HGB Conc 32 g/dL (31-36); Mean Corpuscular Hemoglobin 23 pg (27-31); Mean Corpuscular Volume 72 fL (80-94); Mean Platelet Volume 7.3 fL (7.4-10.4); Platelet Count 330 10^3/uL (150-450); Red Blood Count 5.07 10^6 /uL (4.18-5.48); Red Cell Distribution Width 21 % (10-15); White Blood Count 9.2 10^3/uL (3.5-10.8)
[2020-05-05 08:55] LABS: BUN/Creatinine Ratio 13.9 (8-20); C Reactive Protein 34.33 mg/L (<8.01); Calcium 8.3 mg/dL (8.6-10.3); EGFR African American 64.6 (>60); EGFR Non-African American 53.4 (>60); Potassium 3.8 mmol/L (3.5-5.0)
[2020-05-05 09:33] LABS: % Iron Saturation 9 % (15-55); Iron 30 ug/dL (50-212); Total Iron Binding Capacity 325 mcg/dL (250-450); Transferrin 232 mg/dL (203-362); Unsaturated Iron Binding < 310 ug/dL
[2020-05-05 09:51] LABS: Ferritin 44.8 ng/mL (24-336)
[2020-05-05] MEDS: metroNIDAZOLE IV 500 MG/100ML 500 MG/100 ML BAG IVPB SCH (11:19)
[2020-05-05] MEDS ORDERED: Iron Sucrose 200 MG in NS 0.9% 100 ml BAG 100 ML IVPB ONE (17:59)
[2020-05-05] MEDS: Amoxicillin/Clavul 875/125 TAB (Augmentin 875 tab) PO SCH (20:53)
[2020-05-05] MEDS: Insulin GLARGINE 100 un/ml 10 ml VIAL SUBCUT SCH (20:54)
[2020-05-05] MEDS: Enoxaparin 40 MG/0.4 ML SYR SUBCUT SCH (20:58)
[2020-05-06 07:39] LABS: CO2 Carbon Dioxide 23 mmol/L (22-32); Calcium 8.2 mg/dL (8.6-10.3); Chloride 105 mmol/L (101-111); Magnesium 1.9 mg/dL (1.9-2.7); Sodium 137 mmol/L (135-145)
[2020-05-06 07:44] LABS: BUN/Creatinine Ratio 14.6 (8-20); Blood Urea Nitrogen 19 mg/dL (6-24); EGFR African American 68.6 (>60); EGFR Non-African American 56.7 (>60); Glucose 92 mg/dL (70-100)
[2020-05-06 07:45] LABS: Anion Gap 9 mmol/L (2-11)
[2020-05-06] MEDS: Polyethylene Glycol 3350 17 GM PACKET PO SCH (08:32)
[2020-05-06] MEDS: Amoxicillin/Clavul 875/125 TAB (Augmentin 875 tab) PO SCH ×2 (08:40→21:37)
[2020-05-06] MEDS ORDERED: Vancomycin Trough Check NOTE FOLLOW UP ONE (10:00)
[2020-05-06] MEDS: Insulin GLARGINE 100 un/ml 10 ml VIAL SUBCUT SCH (21:37)
[2020-05-06] MEDS: Enoxaparin 40 MG/0.4 ML SYR SUBCUT SCH (21:37)
[2020-05-07] MEDS: Polyethylene Glycol 3350 17 GM PACKET PO SCH (09:09)
[2020-05-07] MEDS: Amoxicillin/Clavul 875/125 TAB (Augmentin 875 tab) PO SCH ×2 (09:14→20:33)
[2020-05-07] MEDS: Enoxaparin 40 MG/0.4 ML SYR SUBCUT SCH (20:33)
[2020-05-07] MEDS: Insulin GLARGINE 100 un/ml 10 ml VIAL SUBCUT SCH (20:43)
[2020-05-08] MEDS: Amoxicillin/Clavul 875/125 TAB (Augmentin 875 tab) PO SCH ×2 (09:09→23:46)
[2020-05-08] MEDS: Polyethylene Glycol 3350 17 GM PACKET PO SCH (09:17)
[2020-05-08] MEDS ORDERED: Furosemide 40 mg/4 ml IV VIAL IV ONE (11:39)
[2020-05-08] MEDS: Enoxaparin 40 MG/0.4 ML SYR SUBCUT SCH (23:45)
[2020-05-08] MEDS: Insulin GLARGINE 100 un/ml 10 ml VIAL SUBCUT SCH (23:45)
[2020-05-09 06:48] LABS: ABS Basophils 0.1 10^3/ul (0-0.2); ABS Eosinophils 0.4 10^3/ul (0-0.6); ABS Lymphocytes 1.1 10^3/ul (1.0-4.8); ABS Monocytes 1.1 10^3/ul (0-0.8); ABS Neutrophils 7.7 10^3/ul (1.5-7.7); Eosinophil % 4.2 %; Hematocrit 37 % (42-52); Hemoglobin 11.8 g/dL (14.0-18.0); Lymphocyte % 10.5 %; Mean Corpuscular HGB Conc 32 g/dL (31-36); Mean Corpuscular Hemoglobin 23 pg (27-31); Mean Corpuscular Volume 73 fL (80-94); Mean Platelet Volume 7.3 fL (7.4-10.4); Platelet Count 328 10^3/uL (150-450); Red Blood Count 5.11 10^6 /uL (4.18-5.48); Red Cell Distribution Width 21 % (10-15); White Blood Count 10.5 10^3/uL (3.5-10.8)
[2020-05-09 06:57] LABS: BUN/Creatinine Ratio 14.6 (8-20); Calcium 8.7 mg/dL (8.6-10.3); EGFR African American 64.6 (>60); EGFR Non-African American 53.4 (>60); Potassium 3.9 mmol/L (3.5-5.0)
[2020-05-09] MEDS: Amoxicillin/Clavul 875/125 TAB (Augmentin 875 tab) PO SCH ×2 (09:14→22:32)
[2020-05-09] MEDS: Polyethylene Glycol 3350 17 GM PACKET PO SCH (09:14)
[2020-05-09] MEDS: Insulin GLARGINE 100 un/ml 10 ml VIAL SUBCUT SCH (22:34)
[2020-05-09] MEDS: Enoxaparin 40 MG/0.4 ML SYR SUBCUT SCH (22:34)
[2020-05-10] MEDS: Amoxicillin/Clavul 875/125 TAB (Augmentin 875 tab) PO SCH (09:03)
[2020-05-10] MEDS: Polyethylene Glycol 3350 17 GM PACKET PO SCH (09:04)
[2020-05-10 11:49] VITALS: BP 149/83
== END 2020-05-10 15:00 | DRG 194 ==
LOC: ED 18:04 → MEDTELE 22:19
PROVIDERS: ADMIT Pediatrics; ATTEND Internal Medicine

== ENCOUNTER 2021-02-23 17:35 | Inpatient (IN) ==
[2021-02-23] MEDS ORDERED: Vancomycin 1,000 MG BAG/ADDV ONE (20:24)
[2021-02-23] MEDS ORDERED: Piperacillin/Tazobac 3.375 GM ADVAN ONE (20:24)
[2021-02-23 20:27] LABS: Albumin 3.1 g/dL (3.2-5.2); Calcium 8.9 mg/dL (8.6-10.3); Magnesium 1.9 mg/dL (1.9-2.7); Potassium 4.4 mmol/L (3.5-5.0); Total Bilirubin 0.6 mg/dL (0.2-1.0)
[2021-02-23] MEDS: Piperacillin/Tazobac ADVAN 3.375 GM in NS 0.9% 100 ml BAG 100 ML IV ONE (20:30)
[2021-02-23 20:32] LABS: Hematocrit 34 % (42-52); Hemoglobin 10.8 g/dL (14.0-18.0); Mean Corpuscular Hemoglobin 24 pg (27-31); Mean Corpuscular Hgb Conc 32 g/dL (31-36); Mean Corpuscular Volume 75 fL (80-94); Mean Platelet Volume 7.4 fL (7.4-10.4); Platelet Count 427 10^3/uL (150-450); Red Blood Count 4.57 10^6 /uL (4.18-5.48); Red Cell Distribution Width 20 % (10-15); White Blood Count 17.4 10^3/uL (3.5-10.8)
[2021-02-23 20:33] LABS: Albumin/Globulin Ratio 0.7 (1-3); C Reactive Protein 280.63 mg/L (<8.01); Creatinine, Serum 1.47 mg/dL (0.67-1.17); EGFR African American 59.5 (>60); EGFR Non-African American 49.2 (>60); Globulin 4.6 g/dL (2-4); Total Protein 7.7 g/dL (6.4-8.9)
[2021-02-23 20:57] LABS: Rapid COVID-19 Molecular Undetected (Undetected)
[2021-02-23 21:04] LABS: ABS Basophils 0.1 10^3/ul (0-0.2); ABS Eosinophils 0.2 10^3/ul (0-0.6); ABS Lymphocytes 1.2 10^3/ul (1.0-4.8); ABS Monocytes 1.6 10^3/ul (0-0.8); ABS Neutrophils 14.3 10^3/ul (1.5-7.7); Lymphocyte % 7.1 %
[2021-02-23 21:39] LABS: Erythrocyte Sed Rate > 120 mm/Hr (0-19)
[2021-02-23] MEDS: Vancomycin 1,000 MG in NS 0.9% 250 ml 250 ML IVPB ONE (21:41)
[2021-02-23] MEDS ORDERED: NS 0.9% 1000 ml BAG 1,000 ML IV SCH (22:15)
[2021-02-23] MEDS ORDERED: Dextrose 50% Syringe 50 ml 25 GM/50 ML SYRINGE IV PUSH PRN (22:30)
[2021-02-23] MEDS ORDERED: Zosyn per Pharmacy NOTE FOLLOW UP SCH (23:00)
[2021-02-23] MEDS ORDERED: Vancomycin per Pharmacy 1 EA NOTE FOLLOW UP SCH (23:00)
[2021-02-24] MEDS: Vancomycin 1,500 MG in NS 0.9% 250 ml 250 ML IVPB ONE (01:19)
[2021-02-24] MEDS: NS 0.9% 1000 ml BAG 1,000 ML IV SCH (01:19)
[2021-02-24] MEDS: Enoxaparin 40 MG/0.4 ML SYR SUBCUT SCH (01:25)
[2021-02-24] MEDS: Insulin GLARGINE 100 un/ml 10 ml VIAL SUBCUT SCH ×2 (01:28→22:14)
[2021-02-24] MEDS: ZOSYN 3.375 GM Q8H per EXTENDED INFUSION IV SCH ×2 (03:50→08:14)
[2021-02-24 09:33] LABS: ABS Basophils 0.1 10^3/ul (0-0.2); ABS Eosinophils 0.2 10^3/ul (0-0.6); ABS Lymphocytes 0.7 10^3/ul (1.0-4.8); ABS Monocytes 1.5 10^3/ul (0-0.8); ABS Neutrophils 17.2 10^3/ul (1.5-7.7); Eosinophil % 1.2 %; Hematocrit 29 % (42-52); Hemoglobin 9.4 g/dL (14.0-18.0); Lymphocyte % 3.7 %; Mean Corpuscular Hemoglobin 24 pg (27-31); Mean Corpuscular Hgb Conc 32 g/dL (31-36); Mean Corpuscular Volume 74 fL (80-94); Mean Platelet Volume 7.4 fL (7.4-10.4); Platelet Count 401 10^3/uL (150-450); Red Blood Count 3.93 10^6 /uL (4.18-5.48); Red Cell Distribution Width 20 % (10-15); White Blood Count 19.8 10^3/uL (3.5-10.8)
[2021-02-24 09:44] LABS: Albumin 2.6 g/dL (3.2-5.2); Albumin/Globulin Ratio 0.6 (1-3); Calcium 8.4 mg/dL (8.6-10.3); Creatinine, Serum 1.5 mg/dL (0.67-1.17); EGFR African American 58.2 (>60); EGFR Non-African American 48.1 (>60); Globulin 4.3 g/dL (2-4); Potassium 4.7 mmol/L (3.5-5.0); Total Bilirubin 0.6 mg/dL (0.2-1.0); Total Protein 6.9 g/dL (6.4-8.9)
[2021-02-24] MEDS: NS 0.9% IV ONE (09:55)
[2021-02-24] MEDS: Vancomycin 1,250 MG in NS 0.9% 250 ml 250 ML IVPB SCH (12:31)
[2021-02-24 13:52] LABS: SARS Coronavirus-2 Undetected (Undetected)
[2021-02-24 14:00] LABS: Urine Appearance Turbid; Urine Bilirubin Negative (Negative); Urine Blood 1+ (Negative); Urine Color Amber; Urine Glucose 3+(>=500 mg/dL) (Negative); Urine Ketones Negative (Negative); Urine Nitrite Negative (Negative); Urine Protein 3+(>=500 mg/dL) (Negative); Urine Specific Gravity 1.023 (1.002-1.030); Urine Urobilinogen Negative (Negative)
[2021-02-24 14:09] LABS: Budding Yeast Present (Absent); Urine Bacteria Absent (Absent); Urine Red Blood Cell 1+(3-5/hpf) (Absent); Urine Squamous Epithelial Cell Present (Absent); Urine White Blood Cell 1+(6-10/hpf) (Absent); Urine Yeast Present (Absent)
[2021-02-25 07:28] LABS: Albumin 2.6 g/dL (3.2-5.2); Albumin/Globulin Ratio 0.6 (1-3); Calcium 8.5 mg/dL (8.6-10.3); Creatinine, Serum 1.53 mg/dL (0.67-1.17); EGFR African American 56.8 (>60); Globulin 4.4 g/dL (2-4); Magnesium 1.9 mg/dL (1.9-2.7); Potassium 4.3 mmol/L (3.5-5.0); Total Bilirubin 0.5 mg/dL (0.2-1.0)
[2021-02-25 07:37] LABS: Hematocrit 30 % (42-52); Hemoglobin 9.4 g/dL (14.0-18.0); Mean Corpuscular Hemoglobin 24 pg (27-31); Mean Corpuscular Hgb Conc 32 g/dL (31-36); Mean Corpuscular Volume 74 fL (80-94); Platelet Count 406 10^3/uL (150-450); Red Blood Count 3.99 10^6 /uL (4.18-5.48); Red Cell Distribution Width 20 % (10-15); White Blood Count 13.6 10^3/uL (3.5-10.8)
[2021-02-25] MEDS: Vancomycin Trough Check NOTE FOLLOW UP ONE (11:42)
[2021-02-25] MEDS ORDERED: Perflutren Lipid Microsphere 3 ML VIAL ONE (13:49)
[2021-02-26] MEDS: Vancomycin 1000 MG in NS 0.9% 250 ML IVPB SCH (00:40)
[2021-02-26 05:21] LABS: Hematocrit 31 % (42-52); Hemoglobin 9.7 g/dL (14.0-18.0); Mean Corpuscular Hemoglobin 24 pg (27-31); Mean Corpuscular Hgb Conc 31 g/dL (31-36); Mean Corpuscular Volume 75 fL (80-94); Platelet Count 450 10^3/uL (150-450); Red Blood Count 4.12 10^6 /uL (4.18-5.48); Red Cell Distribution Width 20 % (10-15); White Blood Count 14.2 10^3/uL (3.5-10.8)
[2021-02-26 05:39] LABS: Calcium 8.6 mg/dL (8.6-10.3); Creatinine, Serum 1.46 mg/dL (0.67-1.17); EGFR Non-African American 49.6 (>60); Potassium 4.1 mmol/L (3.5-5.0)
[2021-02-26] MEDS ORDERED: fentaNYL 100 mcg/2 ml 50 MCG/ML VIAL ONE ×3 (11:54→15:42)
[2021-02-26] MEDS ORDERED: Propofol 10 MG/ML 20 ML BTL ONE (11:54)
[2021-02-26] MEDS ORDERED: Succinylcholine 200 mg VIAL 20 mg/ml 10 ml VIAL (200 mg) ONE (11:54)
[2021-02-26] MEDS: Vancomycin Trough Check NOTE FOLLOW UP ONE (11:57)
[2021-02-26] MEDS ORDERED: Morphine 4 MG/ML VIAL (1 ml) IV PRN (12:06)
[2021-02-26] MEDS ORDERED: Naloxone 0.4 mg VIAL 0.4 mg/ml 1 ml VIAL IV PRN (12:06)
[2021-02-26] MEDS ORDERED: Prochlorperazine 5 mg/ml 2 ml VIAL (10 mg) IV PRN (12:06)
[2021-02-26] MEDS ORDERED: Levalbuterol 0.63MG/3ML NEB UNIT OF USE INH ONE (12:13)
[2021-02-26] MEDS: Levalbuterol 0.63MG/3ML NEB UNIT OF USE INH ONE (12:30)
[2021-02-26] MEDS ORDERED: Phenylephrine 40 mcg/mL 10mL (400mcg) SYRINGE ONE (13:23)
[2021-02-26] MEDS ORDERED: Phenylephrine IV 10 MG/ML 1 ml VIAL ONE (13:27)
[2021-02-26] MEDS ORDERED: HYDROcodone/ACETAMIN 5/325 mg TAB ONE (15:04)
[2021-02-26] MEDS: fentaNYL 100 mcg/2 ml 50 MCG/ML VIAL IV PRN (15:06)
[2021-02-26] MEDS: HYDROcodone/ACETAMIN 5/325 mg TAB PO PRN (15:08)
[2021-02-26 15:32] LABS: Hematocrit 29 % (42-52); Hemoglobin 9.2 g/dL (14.0-18.0)
[2021-02-26] MEDS ORDERED: Labetalol IV 5 MG/ML 20 ml VIAL ONE (15:34)
[2021-02-26] MEDS: Labetalol IV 5 MG/ML 20 ml VIAL IV PUSH PRN (15:44)
[2021-02-26] MEDS ORDERED: Vancomycin 750 MG in NS 0.9% 250 ML IVPB SCH (21:00)
[2021-02-26] MEDS: oxyCODONE/Acetamin 5/325 mg TAB PO PRN (21:52)
[2021-02-26] MEDS: fentaNYL 100 mcg/2 ml 50 MCG/ML VIAL IV SLOW PU PRN (22:36)
[2021-02-27 06:37] LABS: Hematocrit 29 % (42-52); Hemoglobin 8.8 g/dL (14.0-18.0); Mean Corpuscular Hemoglobin 23 pg (27-31); Mean Corpuscular Hgb Conc 31 g/dL (31-36); Mean Corpuscular Volume 76 fL (80-94); Mean Platelet Volume 7.1 fL (7.4-10.4); Platelet Count 448 10^3/uL (150-450); Red Blood Count 3.76 10^6 /uL (4.18-5.48); Red Cell Distribution Width 20 % (10-15); White Blood Count 14.3 10^3/uL (3.5-10.8)
[2021-02-27] MEDS: Vancomycin Random Level NOTE FOLLOW UP ONE (06:48)
[2021-02-27 06:54] LABS: Creatinine, Serum 1.71 mg/dL (0.67-1.17); EGFR Non-African American 41.3 (>60)
[2021-02-27] MEDS: Enoxaparin 40 MG/0.4 ML SYR SUBCUT SCH (07:48)
[2021-02-27] MEDS ORDERED: Vancomycin Trough Check NOTE FOLLOW UP ONE ×2 (08:30→11:30)
[2021-02-27] MEDS: Vancomycin 1000 MG in NS 0.9% 250 ML IVPB ONE (08:46)
[2021-02-27] MEDS ORDERED: Polyethylene Glycol 3350 17 GM PACKET PO PRN (09:23)
[2021-02-27] MEDS ORDERED: Senna TAB 8.6 mg TAB PO PRN (09:24)
[2021-02-27 10:40] LABS: Calcium 8.3 mg/dL (8.6-10.3); Potassium 4.4 mmol/L (3.5-5.0)
[2021-02-27 10:59] LABS: ABS Basophils 0.1 10^3/ul (0-0.2); ABS Eosinophils 0.3 10^3/ul (0-0.6); ABS Lymphocytes 0.7 10^3/ul (1.0-4.8); ABS Monocytes 1.3 10^3/ul (0-0.8); ABS Neutrophils 11.6 10^3/ul (1.5-7.7); Eosinophil % 2.1 %; Lymphocyte % 4.8 %; Nucleated Red Blood Cells % 0.1
[2021-02-27] MEDS: Furosemide 40 mg/4 ml IV VIAL IV SLOW PU ONE ×2 (14:09→19:32)
[2021-02-28] MEDS: oxyCODONE/Acetamin 5/325 mg TAB PO PRN (02:16)
[2021-02-28] MEDS: Vancomycin Random Level NOTE FOLLOW UP ONE (06:37)
[2021-02-28 07:02] LABS: Potassium 4.7 mmol/L (3.5-5.0)
[2021-02-28 07:08] LABS: Creatinine, Serum 1.89 mg/dL (0.67-1.17); EGFR African American 44.5 (>60); EGFR Non-African American 36.8 (>60)
[2021-02-28 07:20] LABS: Vancomycin Random 14.5 mcg/mL
[2021-02-28] MEDS: Vancomycin 1000 MG in NS 0.9% 250 ML IVPB ONE (10:43)
[2021-02-28 11:51] LABS: Hematocrit 29 % (42-52); Hemoglobin 8.6 g/dL (14.0-18.0); Mean Corpuscular Hemoglobin 24 pg (27-31); Mean Corpuscular Hgb Conc 29 g/dL (31-36); Mean Corpuscular Volume 81 fL (80-94); Mean Platelet Volume 7.3 fL (7.4-10.4); Platelet Count 362 10^3/uL (150-450); Red Blood Count 3.62 10^6 /uL (4.18-5.48); Red Cell Distribution Width 21 % (10-15); White Blood Count 12.7 10^3/uL (3.5-10.8)
[2021-02-28 13:01] LABS: ABS Basophils 0.1 10^3/ul (0-0.2); ABS Eosinophils 0.5 10^3/ul (0-0.6); ABS Lymphocytes 0.9 10^3/ul (1.0-4.8); ABS Monocytes 1.3 10^3/ul (0-0.8); ABS Neutrophils 9.9 10^3/ul (1.5-7.7); Eosinophil % 3.7 %; Lymphocyte % 7.1 %; Nucleated Red Blood Cells % 0.3
[2021-02-28] MEDS: Polyethylene Glycol 3350 17 GM PACKET PO SCH (22:13)
[2021-02-28] MEDS: Senna TAB 8.6 mg TAB PO SCH (22:16)
[2021-03-01 07:28] LABS: ABS Basophils 0.1 10^3/ul (0-0.2); ABS Eosinophils 0.5 10^3/ul (0-0.6); ABS Monocytes 1.1 10^3/ul (0-0.8); ABS Neutrophils 11.9 10^3/ul (1.5-7.7); Eosinophil % 3.2 %; Hematocrit 27 % (42-52); Hemoglobin 8.4 g/dL (14.0-18.0); Lymphocyte % 6.6 %; Mean Corpuscular Hemoglobin 24 pg (27-31); Mean Corpuscular Hgb Conc 32 g/dL (31-36); Mean Corpuscular Volume 76 fL (80-94); Mean Platelet Volume 7.1 fL (7.4-10.4); Nucleated Red Blood Cells % 0.2; Platelet Count 448 10^3/uL (150-450); Red Blood Count 3.51 10^6 /uL (4.18-5.48); Red Cell Distribution Width 20 % (10-15); White Blood Count 14.4 10^3/uL (3.5-10.8)
[2021-03-01 07:38] LABS: Vancomycin Trough 15.3 mcg/mL
[2021-03-01 07:40] LABS: Albumin 2.7 g/dL (3.2-5.2); Albumin/Globulin Ratio 0.6 (1-3); C Reactive Protein 114.6 mg/L (<8.01); Calcium 8.6 mg/dL (8.6-10.3); Creatinine, Serum 2.12 mg/dL (0.67-1.17); EGFR Non-African American 32.2 (>60); Globulin 4.2 g/dL (2-4); Magnesium 2.1 mg/dL (1.9-2.7); Potassium 4.6 mmol/L (3.5-5.0); Total Bilirubin 0.4 mg/dL (0.2-1.0); Total Protein 6.9 g/dL (6.4-8.9)
[2021-03-01] MEDS: Vancomycin Random Level NOTE FOLLOW UP ONE (07:48)
[2021-03-01] MEDS: Vancomycin 750 MG in NS 0.9% 250 ML IVPB ONE (10:01)
[2021-03-02] MEDS: Vancomycin Random Level NOTE FOLLOW UP ONE ×2 (08:01→09:47)
[2021-03-02 08:06] LABS: Hematocrit 26 % (42-52); Hemoglobin 8.1 g/dL (14.0-18.0); Mean Corpuscular Hemoglobin 24 pg (27-31); Mean Corpuscular Hgb Conc 32 g/dL (31-36); Mean Corpuscular Volume 76 fL (80-94); Mean Platelet Volume 6.8 fL (7.4-10.4); Platelet Count 428 10^3/uL (150-450); Red Blood Count 3.37 10^6 /uL (4.18-5.48); Red Cell Distribution Width 20 % (10-15); White Blood Count 13.6 10^3/uL (3.5-10.8)
[2021-03-02 08:23] LABS: Calcium 8.7 mg/dL (8.6-10.3); Creatinine, Serum 2.12 mg/dL (0.67-1.17); EGFR Non-African American 32.2 (>60); Magnesium 2.3 mg/dL (1.9-2.7)
[2021-03-02 08:38] LABS: ABS Basophils 0.1 10^3/ul (0-0.2); ABS Eosinophils 0.4 10^3/ul (0-0.6); ABS Lymphocytes 1.1 10^3/ul (1.0-4.8); ABS Monocytes 1.1 10^3/ul (0-0.8); ABS Neutrophils 10.9 10^3/ul (1.5-7.7); Eosinophil % 2.7 %; Lymphocyte % 8.2 %
[2021-03-02 08:45] LABS: Vancomycin Random 13.9 mcg/mL
[2021-03-02] MEDS: Furosemide 40 mg/4 ml IV VIAL IV SLOW PU ONE (09:40)
[2021-03-02] MEDS: Vancomycin 750 MG in NS 0.9% 250 ML IVPB ONE (11:43)
[2021-03-02] MEDS: PEG 3000 GI LAVAGE 1 GALLON PO ONE (18:03)
[2021-03-03 06:51] LABS: EGFR African American 41.7 (>60); EGFR Non-African American 34.5 (>60); Potassium 4.8 mmol/L (3.5-5.0)
[2021-03-03] MEDS: Furosemide 40 mg/4 ml IV VIAL IV ONE (11:35)
[2021-03-03] MEDS: Vancomycin 750 MG in NS 0.9% 250 ML IVPB SCH (11:35)
[2021-03-04 06:37] LABS: ABS Basophils 0.1 10^3/ul (0-0.2); ABS Eosinophils 0.5 10^3/ul (0-0.6); ABS Lymphocytes 1.4 10^3/ul (1.0-4.8); ABS Monocytes 1.4 10^3/ul (0-0.8); ABS Neutrophils 11.2 10^3/ul (1.5-7.7); Eosinophil % 3.7 %; Hematocrit 27 % (42-52); Hemoglobin 8.3 g/dL (14.0-18.0); Lymphocyte % 9.5 %; Mean Corpuscular Hemoglobin 24 pg (27-31); Mean Corpuscular Hgb Conc 31 g/dL (31-36); Mean Corpuscular Volume 76 fL (80-94); Mean Platelet Volume 7.1 fL (7.4-10.4); Nucleated Red Blood Cells % 0.1; Platelet Count 502 10^3/uL (150-450); Red Blood Count 3.51 10^6 /uL (4.18-5.48); Red Cell Distribution Width 20 % (10-15); White Blood Count 14.6 10^3/uL (3.5-10.8)
[2021-03-04 06:56] LABS: Calcium 8.7 mg/dL (8.6-10.3); Creatinine, Serum 1.84 mg/dL (0.67-1.17); EGFR African American 45.9 (>60); Potassium 4.9 mmol/L (3.5-5.0)
[2021-03-04] MEDS: Furosemide 100 mg/10 ml IV VIAL IV ONE (10:30)
[2021-03-04 11:03] LABS: Creatinine, Serum 1.78 mg/dL (0.67-1.17); EGFR African American 47.7 (>60); EGFR Non-African American 39.5 (>60)
[2021-03-04 11:30] LABS: Vancomycin Trough 10.6 mcg/mL
[2021-03-04] MEDS: Vancomycin Trough Check NOTE FOLLOW UP ONE (11:48)
[2021-03-05 05:48] LABS: Hematocrit 27 % (42-52); Hemoglobin 8.3 g/dL (14.0-18.0); Mean Corpuscular Hemoglobin 23 pg (27-31); Mean Corpuscular Hgb Conc 30 g/dL (31-36); Mean Corpuscular Volume 76 fL (80-94); Mean Platelet Volume 6.8 fL (7.4-10.4); Platelet Count 502 10^3/uL (150-450); Red Blood Count 3.58 10^6 /uL (4.18-5.48); Red Cell Distribution Width 21 % (10-15); White Blood Count 13.5 10^3/uL (3.5-10.8)
[2021-03-05 06:06] LABS: Calcium 8.9 mg/dL (8.6-10.3); Creatinine, Serum 1.78 mg/dL (0.67-1.17); EGFR African American 47.7 (>60); EGFR Non-African American 39.5 (>60)
[2021-03-05] MEDS: Vancomycin 1000 MG in NS 0.9% 250 ML IVPB SCH (06:07)
[2021-03-05 06:14] LABS: Potassium 5.1 mmol/L (3.5-5.0)
[2021-03-05] MEDS: Sodium Polystyrene ORAL.SUSP 15 GM/60 ML BTL PO ONE (11:15)
[2021-03-05] MEDS: Furosemide 100 mg/10 ml IV VIAL IV ONE (15:42)
[2021-03-06 06:03] LABS: ABS Basophils 0.2 10^3/ul (0-0.2); ABS Eosinophils 0.6 10^3/ul (0-0.6); ABS Lymphocytes 1.5 10^3/ul (1.0-4.8); ABS Monocytes 1.1 10^3/ul (0-0.8); ABS Neutrophils 10.6 10^3/ul (1.5-7.7); Eosinophil % 4.1 %; Hematocrit 27 % (42-52); Hemoglobin 8.2 g/dL (14.0-18.0); Lymphocyte % 10.8 %; Mean Corpuscular Hemoglobin 23 pg (27-31); Mean Corpuscular Hgb Conc 30 g/dL (31-36); Mean Corpuscular Volume 76 fL (80-94); Nucleated Red Blood Cells % 0.2; Platelet Count 476 10^3/uL (150-450); Red Blood Count 3.53 10^6 /uL (4.18-5.48); Red Cell Distribution Width 20 % (10-15)
[2021-03-06 06:15] LABS: Creatinine, Serum 1.75 mg/dL (0.67-1.17); EGFR African American 48.7 (>60); EGFR Non-African American 40.2 (>60)
[2021-03-06 06:16] LABS: Calcium 8.8 mg/dL (8.6-10.3); Creatinine, Serum 1.75 mg/dL (0.67-1.17); EGFR African American 48.7 (>60); EGFR Non-African American 40.2 (>60)
[2021-03-06 06:26] LABS: Potassium 5.2 mmol/L (3.5-5.0)
[2021-03-06] MEDS: Vancomycin Trough Check NOTE FOLLOW UP ONE (06:50)
[2021-03-06] MEDS: Furosemide 100 mg/10 ml IV VIAL IV ONE (14:44)
[2021-03-06 20:59] LABS: SARS Coronavirus-2 Undetected (Undetected)
[2021-03-07 05:54] LABS: Creatinine, Serum 1.85 mg/dL (0.67-1.17); EGFR African American 45.7 (>60); EGFR Non-African American 37.7 (>60); Potassium 4.9 mmol/L (3.5-5.0)
[2021-03-07] MEDS: Albuterol/Ipratropium NEB.SOL (2.5/0.5 MG) 3 ML NEB.SOLN INH ONE (15:17)
[2021-03-08 05:54] LABS: Calcium 8.9 mg/dL (8.6-10.3)
[2021-03-08 06:00] LABS: Creatinine, Serum 1.78 mg/dL (0.67-1.17); EGFR African American 47.7 (>60); EGFR Non-African American 39.5 (>60); Potassium 5.1 mmol/L (3.5-5.0)
[2021-03-08 11:59] LABS: Calcium 9.2 mg/dL (8.6-10.3); Creatinine, Serum 1.75 mg/dL (0.67-1.17); EGFR African American 48.7 (>60); EGFR Non-African American 40.2 (>60)
[2021-03-08 12:00] LABS: Potassium 5.4 mmol/L (3.5-5.0)
[2021-03-08 15:56] LABS: Rapid COVID-19 Molecular Undetected (Undetected)
[2021-03-09 08:39] LABS: Calcium 8.9 mg/dL (8.6-10.3); Creatinine, Serum 1.69 mg/dL (0.67-1.17); EGFR African American 50.7 (>60); EGFR Non-African American 41.9 (>60); Potassium 4.7 mmol/L (3.5-5.0)
[2021-03-09 14:54] VITALS: BP 158/85
== END 2021-03-09 12:30 ==
LOC: ED 17:35 → MED 21:35
PROVIDERS: ADMIT Hospitalist; ATTEND Student in an Organized Health Care Education/Training Program

== ENCOUNTER 2021-03-17 11:59 | Inpatient (IN) ==
[2021-03-17 14:15] LABS: ABS Basophils 0.1 10^3/ul (0-0.2); ABS Eosinophils 0.2 10^3/ul (0-0.6); ABS Lymphocytes 0.8 10^3/ul (1.0-4.8); ABS Monocytes 0.6 10^3/ul (0-0.8); Eosinophil % 1.2 %; Hematocrit 28 % (42-52); Hemoglobin 8.6 g/dL (14.0-18.0); Lymphocyte % 6.1 %; Mean Corpuscular HGB Conc 30 g/dL (31-36); Mean Corpuscular Hemoglobin 23 pg (27-31); Mean Corpuscular Volume 76 fL (80-94); Mean Platelet Volume 7.5 fL (7.4-10.4); Platelet Count 378 10^3/uL (150-450); Red Blood Count 3.76 10^6 /uL (4.18-5.48); Red Cell Distribution Width 21 % (10-15); White Blood Count 12.7 10^3/uL (3.5-10.8)
[2021-03-17 14:26] LABS: INR 1.44 (0.86-1.15)
[2021-03-17 14:36] LABS: Urine Appearance Clear; Urine Bilirubin Negative (Negative); Urine Blood 1+ (Negative); Urine Color Yellow; Urine Glucose Negative (Negative); Urine Ketones Negative (Negative); Urine Nitrite Negative (Negative); Urine Protein 2+(100 mg/dL) (Negative); Urine Specific Gravity 1.012 (1.002-1.030); Urine Urobilinogen Negative (Negative)
[2021-03-17 14:39] LABS: Urine Bacteria Absent (Absent); Urine Red Blood Cell 3+(>10/hpf) (Absent); Urine Squamous Epithelial Cell Present (Absent); Urine White Blood Cell Trace(0-5/hpf) (Absent)
[2021-03-17 14:41] LABS: Troponin I 0.03 ng/mL (<0.03)
[2021-03-17 14:44] LABS: ALT 13 U/L (7-52); AST 10 U/L (13-39); Albumin 2.9 g/dL (3.2-5.2); Albumin/Globulin Ratio 0.5 (1-3); Alkaline Phosphatase 145 U/L (35-149); Anion Gap 3 mmol/L (2-11); Blood Urea Nitrogen 36 mg/dL (6-24); C Reactive Protein 36.54 mg/L (<8.01); CO2 Carbon Dioxide 36 mmol/L (22-32); Calcium 9.4 mg/dL (8.6-10.3); Chloride 98 mmol/L (101-111); EGFR African American 57.7 (>60); EGFR Non-African American 47.7 (>60); Globulin 5.3 g/dL (2-4); Glucose 128 mg/dL (70-100); Magnesium 1.7 mg/dL (1.9-2.7); Potassium 4.7 mmol/L (3.5-5.0); Sodium 137 mmol/L (135-145); Total Protein 8.2 g/dL (6.4-8.9)
[2021-03-17 15:05] LABS: TSH Ultra Thyroid Stim Horm 2.77 mcIU/mL (0.34-5.60)
[2021-03-17] MEDS ORDERED: Iodixanol (CONTRAST) 320 MG/ML 100 ML SDV IV ONE (15:12)
[2021-03-17] MEDS ORDERED: Furosemide 40 mg/4 ml IV VIAL IV ONE (17:18)
[2021-03-17 17:46] LABS: PCO2 Arterial 60 mmHg (35-45); PO2 Arterial 66 mmHg (80-100)
[2021-03-17] MEDS ORDERED: Ondansetron 4 mg VIAL 2 MG/ML 2 ml VIAL IV PRN (18:13)
[2021-03-17] MEDS ORDERED: Dextrose 50% Syringe 50 ml 25 GM/50 ML SYRINGE IV PUSH PRN (18:19)
[2021-03-17] MEDS ORDERED: Magnesium Sulfate IV 1GM/100ML 1 GM/100 ML BAG IV ONE (19:02)
[2021-03-17] MEDS: Insulin GLARGINE 100 un/ml 10 ml VIAL SUBCUT SCH (21:52)
[2021-03-17] MEDS: Enoxaparin 40 MG/0.4 ML SYR SUBCUT SCH (21:54)
[2021-03-18 06:54] LABS: ABS Basophils 0.1 10^3/ul (0-0.2); ABS Eosinophils 0.3 10^3/ul (0-0.6); ABS Lymphocytes 1.1 10^3/ul (1.0-4.8); ABS Monocytes 0.9 10^3/ul (0-0.8); ABS Neutrophils 9.9 10^3/ul (1.5-7.7); Eosinophil % 2.5 %; Hematocrit 29 % (42-52); Hemoglobin 8.9 g/dL (14.0-18.0); Mean Corpuscular HGB Conc 31 g/dL (31-36); Mean Corpuscular Hemoglobin 23 pg (27-31); Mean Corpuscular Volume 75 fL (80-94); Mean Platelet Volume 7.6 fL (7.4-10.4); Platelet Count 384 10^3/uL (150-450); Red Blood Count 3.87 10^6 /uL (4.18-5.48); Red Cell Distribution Width 22 % (10-15); White Blood Count 12.2 10^3/uL (3.5-10.8)
[2021-03-18 08:22] LABS: Anion Gap 4 mmol/L (2-11); Blood Urea Nitrogen 39 mg/dL (6-24); CO2 Carbon Dioxide 37 mmol/L (22-32); Calcium 9.3 mg/dL (8.6-10.3); Chloride 96 mmol/L (101-111); EGFR African American 49.7 (>60); Glucose 98 mg/dL (70-100); Magnesium 1.9 mg/dL (1.9-2.7); Potassium 4.6 mmol/L (3.5-5.0); Sodium 137 mmol/L (135-145)
[2021-03-18] MEDS: Furosemide 40 mg/4 ml IV VIAL IV SLOW PU SCH (08:46)
[2021-03-18] MEDS: Psyllium PAK PO SCH (08:53)
[2021-03-18 09:57] LABS: Troponin I 0.03 ng/mL (<0.03)
[2021-03-18] MEDS: Insulin GLARGINE 100 un/ml 10 ml VIAL SUBCUT SCH (21:25)
[2021-03-18] MEDS: Enoxaparin 40 MG/0.4 ML SYR SUBCUT SCH (21:25)
[2021-03-19 07:38] LABS: Hematocrit 28 % (42-52); Hemoglobin 8.9 g/dL (14.0-18.0); Mean Corpuscular HGB Conc 32 g/dL (31-36); Mean Corpuscular Hemoglobin 23 pg (27-31); Mean Corpuscular Volume 74 fL (80-94); Mean Platelet Volume 7.1 fL (7.4-10.4); Platelet Count 353 10^3/uL (150-450); Red Blood Count 3.82 10^6 /uL (4.18-5.48); Red Cell Distribution Width 21 % (10-15); White Blood Count 10.3 10^3/uL (3.5-10.8)
[2021-03-19 07:53] LABS: EGFR African American 49.7 (>60); Magnesium 1.9 mg/dL (1.9-2.7); Potassium 4.4 mmol/L (3.5-5.0)
[2021-03-19] MEDS: Furosemide 40 mg/4 ml IV VIAL IV SLOW PU SCH (11:09)
[2021-03-19] MEDS: Psyllium PAK PO SCH (11:10)
[2021-03-19] MEDS ORDERED: Dextrose 50% Syringe 50 ml 25 GM/50 ML SYRINGE IV PUSH PRN (18:03)
[2021-03-19] MEDS: Enoxaparin 40 MG/0.4 ML SYR SUBCUT SCH (22:24)
[2021-03-19] MEDS: Insulin GLARGINE 100 un/ml 10 ml VIAL SUBCUT SCH (22:24)
[2021-03-20 05:35] LABS: Hematocrit 29 % (42-52); Hemoglobin 8.8 g/dL (14.0-18.0); Mean Corpuscular HGB Conc 30 g/dL (31-36); Mean Corpuscular Hemoglobin 23 pg (27-31); Mean Corpuscular Volume 75 fL (80-94); Mean Platelet Volume 7.2 fL (7.4-10.4); Platelet Count 360 10^3/uL (150-450); Red Blood Count 3.88 10^6 /uL (4.18-5.48); Red Cell Distribution Width 21 % (10-15); White Blood Count 10.3 10^3/uL (3.5-10.8)
[2021-03-20 05:54] LABS: Calcium 8.7 mg/dL (8.6-10.3); EGFR African American 48.7 (>60); EGFR Non-African American 40.2 (>60); Magnesium 1.9 mg/dL (1.9-2.7); Potassium 4.3 mmol/L (3.5-5.0)
[2021-03-20] MEDS: Furosemide 40 mg/4 ml IV VIAL IV SLOW PU SCH (08:47)
[2021-03-20] MEDS: Psyllium PAK PO SCH (08:48)
[2021-03-20] MEDS: Insulin GLARGINE 100 un/ml 10 ml VIAL SUBCUT SCH (20:52)
[2021-03-20] MEDS: Enoxaparin 40 MG/0.4 ML SYR SUBCUT SCH (20:52)
[2021-03-21 06:25] LABS: ABS Basophils 0.1 10^3/ul (0-0.2); ABS Eosinophils 0.5 10^3/ul (0-0.6); ABS Lymphocytes 1.2 10^3/ul (1.0-4.8); ABS Neutrophils 7.6 10^3/ul (1.5-7.7); Eosinophil % 4.8 %; Hematocrit 29 % (42-52); Hemoglobin 8.9 g/dL (14.0-18.0); Lymphocyte % 11.7 %; Mean Corpuscular HGB Conc 30 g/dL (31-36); Mean Corpuscular Hemoglobin 23 pg (27-31); Mean Corpuscular Volume 76 fL (80-94); Mean Platelet Volume 7.3 fL (7.4-10.4); Platelet Count 329 10^3/uL (150-450); Red Blood Count 3.83 10^6 /uL (4.18-5.48); Red Cell Distribution Width 21 % (10-15); White Blood Count 10.3 10^3/uL (3.5-10.8)
[2021-03-21 06:43] LABS: Anion Gap 4 mmol/L (2-11); Blood Urea Nitrogen 40 mg/dL (6-24); CO2 Carbon Dioxide 36 mmol/L (22-32); Calcium 8.7 mg/dL (8.6-10.3); Chloride 99 mmol/L (101-111); EGFR Non-African American 40.5 (>60); Glucose 77 mg/dL (70-100); Potassium 4.5 mmol/L (3.5-5.0); Sodium 139 mmol/L (135-145)
[2021-03-21] MEDS: Psyllium PAK PO SCH ×2 (09:48→09:54)
[2021-03-21] MEDS: Furosemide 40 mg/4 ml IV VIAL IV SLOW PU SCH (09:48)
[2021-03-21 13:57] LABS: % Iron Saturation 9 % (15-55); Iron 27 ug/dL (50-212); Total Iron Binding Capacity 288 mcg/dL (250-450); Transferrin 206 mg/dL (203-362); Unsaturated Iron Binding < 273 ug/dL
[2021-03-21 14:18] LABS: Ferritin 143.8 ng/mL (24-336)
[2021-03-21 16:54] LABS: PCO2 Arterial 57 mmHg (35-45); PO2 Arterial 60 mmHg (80-100)
[2021-03-21] MEDS: Enoxaparin 40 MG/0.4 ML SYR SUBCUT SCH (20:07)
[2021-03-21] MEDS: Insulin GLARGINE 100 un/ml 10 ml VIAL SUBCUT SCH (20:08)
[2021-03-22 05:32] LABS: Calcium 8.2 mg/dL (8.6-10.3); Potassium 4.4 mmol/L (3.5-5.0)
[2021-03-22 05:37] LABS: EGFR African American 37.2 (>60); EGFR Non-African American 30.7 (>60)
[2021-03-22] MEDS: Psyllium PAK PO SCH (08:43)
[2021-03-22] MEDS ORDERED: Furosemide 40 mg/4 ml IV VIAL IV SLOW PU SCH (09:00)
[2021-03-22] MEDS: Enoxaparin 40 MG/0.4 ML SYR SUBCUT SCH (20:40)
[2021-03-22] MEDS: Insulin GLARGINE 100 un/ml 10 ml VIAL SUBCUT SCH (22:08)
[2021-03-23] MEDS ORDERED: Furosemide 20 mg/2 ml IV VIAL IV ONE (06:00)
[2021-03-23 06:38] LABS: Calcium 8.3 mg/dL (8.6-10.3); EGFR African American 35.2 (>60); EGFR Non-African American 29.1 (>60); Potassium 4.8 mmol/L (3.5-5.0)
[2021-03-23] MEDS: Psyllium PAK PO SCH (09:05)
[2021-03-23] MEDS ORDERED: Iron Sucrose 200 MG in NS 0.9% 100 ml BAG 100 ML IVPB ONE (14:47)
[2021-03-23 14:56] LABS: Calcium 8.3 mg/dL (8.6-10.3); EGFR African American 32.7 (>60); Potassium 4.6 mmol/L (3.5-5.0)
[2021-03-23] MEDS: Enoxaparin 40 MG/0.4 ML SYR SUBCUT SCH (21:01)
[2021-03-23] MEDS: Insulin GLARGINE 100 un/ml 10 ml VIAL SUBCUT SCH (21:01)
[2021-03-24 04:27] LABS: Urine Appearance Cloudy; Urine Bilirubin Negative (Negative); Urine Blood 1+ (Negative); Urine Color Yellow; Urine Glucose Negative (Negative); Urine Ketones Negative (Negative); Urine Nitrite Negative (Negative); Urine Protein 2+(100 mg/dL) (Negative); Urine Specific Gravity 1.017 (1.002-1.030); Urine Urobilinogen Negative (Negative)
[2021-03-24 04:46] LABS: Urine Bacteria Absent (Absent); Urine Red Blood Cell Trace(0-2/hpf) (Absent); Urine Squamous Epithelial Cell Present (Absent); Urine White Blood Cell Absent (Absent)
[2021-03-24 04:48] LABS: Urine Creatinine 217.66 mg/dL; Urine Creatinine Concentration 217.66 mg/dL
[2021-03-24 05:42] LABS: UR Microalbumin (mg/L) 1457.4 mg/L; Urine Microalbumin/Creatinine 669.5 (<31)
[2021-03-24 06:08] LABS: Calcium 8.1 mg/dL (8.6-10.3); EGFR African American 30.4 (>60); EGFR Non-African American 25.1 (>60); Potassium 4.8 mmol/L (3.5-5.0)
[2021-03-24] MEDS ORDERED: Furosemide 40 mg/4 ml IV VIAL IV SCH (09:00)
[2021-03-24] MEDS: Psyllium PAK PO SCH (09:52)
[2021-03-24] MEDS: Enoxaparin 40 MG/0.4 ML SYR SUBCUT SCH (21:16)
[2021-03-24] MEDS: Insulin GLARGINE 100 un/ml 10 ml VIAL SUBCUT SCH (21:17)
[2021-03-25] MEDS ORDERED: Furosemide 40 mg/4 ml IV VIAL IV SCH (06:00)
[2021-03-25 06:30] LABS: Calcium 8.3 mg/dL (8.6-10.3); EGFR African American 28.3 (>60); EGFR Non-African American 23.4 (>60); Potassium 5.1 mmol/L (3.5-5.0)
[2021-03-25] MEDS ORDERED: Calcium Gluconate 1 GM in NS 0.9% 50 ML 50 ML IV ONE (07:31)
[2021-03-25] MEDS ORDERED: Dextrose 50% Syringe 50 ml 25 GM/50 ML SYRINGE IV PUSH ONE (07:35)
[2021-03-25] MEDS: Patiromer POWDER 8.4 GM PAK PO SCH ×2 (08:19→20:32)
[2021-03-25] MEDS: Psyllium PAK PO SCH (08:20)
[2021-03-25] MEDS ORDERED: Iron Sucrose 20 MG/ML 5 ML VIAL IV PUSH SCH (09:00)
[2021-03-25] MEDS: Iron Sucrose 200 MG in NS 0.9% 100 ml IVPB SCH (11:30)
[2021-03-25 14:45] LABS: Calcium 8.3 mg/dL (8.6-10.3); Potassium 4.8 mmol/L (3.5-5.0)
[2021-03-25 14:51] LABS: EGFR African American 28.5 (>60); EGFR Non-African American 23.6 (>60)
[2021-03-25] MEDS: Enoxaparin 40 MG/0.4 ML SYR SUBCUT SCH (20:27)
[2021-03-25] MEDS: Insulin GLARGINE 100 un/ml 10 ml VIAL SUBCUT SCH (20:30)
[2021-03-26] MEDS: Furosemide 40 mg/4 ml IV VIAL IV SCH ×2 (05:37→12:49)
[2021-03-26] MEDS: Psyllium PAK PO SCH (09:12)
[2021-03-26] MEDS: Iron Sucrose 200 MG in NS 0.9% 100 ml IVPB SCH (09:20)
[2021-03-26] MEDS: Patiromer POWDER 8.4 GM PAK PO SCH ×2 (09:22→22:32)
[2021-03-26 09:48] LABS: Calcium 8.1 mg/dL (8.6-10.3); EGFR African American 27.2 (>60); EGFR Non-African American 22.5 (>60)
[2021-03-26] MEDS ORDERED: Furosemide 100 mg/10 ml IV VIAL IV ONE ×2 (12:35→20:21)
[2021-03-26 18:46] LABS: Calcium 8.2 mg/dL (8.6-10.3); EGFR African American 26.4 (>60); EGFR Non-African American 21.9 (>60)
[2021-03-26] MEDS ORDERED: NS 0.9% IV ONE (22:00)
[2021-03-26] MEDS ORDERED: FUROSEMIDE IV ONE (22:00)
[2021-03-26] MEDS: Insulin GLARGINE 100 un/ml 10 ml VIAL SUBCUT SCH (22:27)
[2021-03-26] MEDS: Enoxaparin 40 MG/0.4 ML SYR SUBCUT SCH (22:28)
[2021-03-27] MEDS: Furosemide 40 mg/4 ml IV VIAL IV SCH ×2 (06:33→12:27)
[2021-03-27 06:50] LABS: Calcium 8.1 mg/dL (8.6-10.3); Potassium 4.8 mmol/L (3.5-5.0)
[2021-03-27 06:56] LABS: EGFR African American 27.7 (>60); EGFR Non-African American 22.9 (>60)
[2021-03-27] MEDS: Psyllium PAK PO SCH (08:09)
[2021-03-27] MEDS: Iron Sucrose 200 MG in NS 0.9% 100 ml IVPB SCH (08:23)
[2021-03-27] MEDS ORDERED: Furosemide 100 mg/10 ml IV VIAL IV ONE (08:25)
[2021-03-27] MEDS: Patiromer POWDER 8.4 GM PAK PO SCH ×2 (08:26→19:44)
[2021-03-27] MEDS: Enoxaparin 40 MG/0.4 ML SYR SUBCUT SCH (22:27)
[2021-03-27] MEDS: Insulin GLARGINE 100 un/ml 10 ml VIAL SUBCUT SCH (22:33)
[2021-03-28] MEDS ORDERED: Furosemide 100 mg/10 ml IV VIAL IV ONE (06:09)
[2021-03-28 06:48] LABS: Calcium 8.6 mg/dL (8.6-10.3); EGFR African American 29.8 (>60); EGFR Non-African American 24.6 (>60); Potassium 4.7 mmol/L (3.5-5.0)
[2021-03-28 06:51] LABS: Hematocrit 30 % (42-52); Hemoglobin 9.3 g/dL (14.0-18.0); Mean Corpuscular HGB Conc 31 g/dL (31-36); Mean Corpuscular Hemoglobin 24 pg (27-31); Mean Corpuscular Volume 76 fL (80-94); Mean Platelet Volume 8.1 fL (7.4-10.4); Platelet Count 324 10^3/uL (150-450); Red Blood Count 3.93 10^6 /uL (4.18-5.48); Red Cell Distribution Width 22 % (10-15); White Blood Count 10.5 10^3/uL (3.5-10.8)
[2021-03-28] MEDS ORDERED: FUROSEMIDE IV ONE (07:00)
[2021-03-28] MEDS ORDERED: NS 0.9% IV ONE (07:00)
[2021-03-28] MEDS: Iron Sucrose 200 MG in NS 0.9% 100 ml IVPB SCH (09:23)
[2021-03-28] MEDS: Psyllium PAK PO SCH (09:24)
[2021-03-28] MEDS: Patiromer POWDER 8.4 GM PAK PO SCH ×2 (09:34→19:45)
[2021-03-28] MEDS: Enoxaparin 40 MG/0.4 ML SYR SUBCUT SCH (21:52)
[2021-03-28] MEDS: Insulin GLARGINE 100 un/ml 10 ml VIAL SUBCUT SCH (21:53)
[2021-03-29 05:55] LABS: Calcium 8.8 mg/dL (8.6-10.3); Magnesium 2.3 mg/dL (1.9-2.7); Potassium 4.5 mmol/L (3.5-5.0)
[2021-03-29 06:00] LABS: EGFR African American 32.4 (>60); EGFR Non-African American 26.8 (>60)
[2021-03-29] MEDS ORDERED: Furosemide 100 mg/10 ml IV VIAL IV ONE (07:53)
[2021-03-29] MEDS: Psyllium PAK PO SCH (08:54)
[2021-03-29] MEDS: Furosemide 100 mg/10 ml IV 100 MG in NS 0.9% 100 ml BAG 90 ML IV SCH ×3 (10:43→21:49)
[2021-03-29] MEDS: Patiromer POWDER 8.4 GM PAK PO SCH ×3 (10:45→22:01)
[2021-03-29 17:35] LABS: Calcium 8.4 mg/dL (8.6-10.3); EGFR African American 30.4 (>60); EGFR Non-African American 25.1 (>60); Potassium 4.4 mmol/L (3.5-5.0)
[2021-03-29] MEDS ORDERED: Insulin GLARGINE 100 un/ml 10 ml VIAL SUBCUT SCH ×2 (21:00)
[2021-03-29] MEDS ORDERED: Furosemide 100 mg/10 ml IV VIAL ONE (21:07)
[2021-03-29] MEDS: Enoxaparin 40 MG/0.4 ML SYR SUBCUT SCH (21:29)
[2021-03-29] MEDS: Insulin GLARGINE 100 un/ml 10 ml VIAL SUBCUT SCH (21:54)
[2021-03-30] MEDS: Furosemide 100 mg/10 ml IV 100 MG in NS 0.9% 100 ml BAG 90 ML IV SCH ×2 (05:29→08:07)
[2021-03-30 06:30] LABS: Calcium 8.5 mg/dL (8.6-10.3); Magnesium 2.2 mg/dL (1.9-2.7); Potassium 4.6 mmol/L (3.5-5.0)
[2021-03-30 06:35] LABS: EGFR African American 28.2 (>60); EGFR Non-African American 23.3 (>60)
[2021-03-30 07:56] LABS: ABS Basophils 0.1 10^3/ul (0-0.2); ABS Eosinophils 0.5 10^3/ul (0-0.6); ABS Lymphocytes 1.5 10^3/ul (1.0-4.8); ABS Monocytes 1.2 10^3/ul (0-0.8); ABS Neutrophils 8.9 10^3/ul (1.5-7.7); Eosinophil % 3.9 %; Hematocrit 31 % (42-52); Hemoglobin 9.5 g/dL (14.0-18.0); Lymphocyte % 12.4 %; Mean Corpuscular HGB Conc 31 g/dL (31-36); Mean Corpuscular Hemoglobin 24 pg (27-31); Mean Corpuscular Volume 77 fL (80-94); Platelet Count 346 10^3/uL (150-450); Red Blood Count 3.95 10^6 /uL (4.18-5.48); Red Cell Distribution Width 23 % (10-15); White Blood Count 12.1 10^3/uL (3.5-10.8)
[2021-03-30] MEDS: Patiromer POWDER 8.4 GM PAK PO SCH ×2 (08:50→21:48)
[2021-03-30] MEDS: Psyllium PAK PO SCH (08:50)
[2021-03-30] MEDS: Enoxaparin 40 MG/0.4 ML SYR SUBCUT SCH (21:47)
[2021-03-30] MEDS: Insulin GLARGINE 100 un/ml 10 ml VIAL SUBCUT SCH (21:47)
[2021-03-31 06:55] LABS: Calcium 8.6 mg/dL (8.6-10.3); Magnesium 2.3 mg/dL (1.9-2.7); Potassium 4.5 mmol/L (3.5-5.0)
[2021-03-31 07:00] LABS: EGFR African American 31.8 (>60); EGFR Non-African American 26.3 (>60)
[2021-03-31] MEDS: Patiromer POWDER 8.4 GM PAK PO SCH ×2 (08:50→21:05)
[2021-03-31] MEDS: Polyethylene Glycol 3350 17 GM PACKET PO SCH (08:51)
[2021-03-31] MEDS: Psyllium PAK PO SCH (08:51)
[2021-03-31] MEDS: Enoxaparin 40 MG/0.4 ML SYR SUBCUT SCH (21:05)
[2021-03-31] MEDS: Insulin GLARGINE 100 un/ml 10 ml VIAL SUBCUT SCH (21:55)
[2021-04-01 06:47] LABS: Calcium 8.5 mg/dL (8.6-10.3); EGFR Non-African American 30.6 (>60); Potassium 4.2 mmol/L (3.5-5.0)
[2021-04-01] MEDS: Psyllium PAK PO SCH (08:24)
[2021-04-01] MEDS: Polyethylene Glycol 3350 17 GM PACKET PO SCH (08:24)
[2021-04-01] MEDS: Patiromer POWDER 8.4 GM PAK PO SCH (08:24)
[2021-04-01 11:03] VITALS: BP 146/69
[2021-04-01] MEDS ORDERED: Insulin GLARGINE 100 un/ml 10 ml VIAL SUBCUT SCH (21:00)
== END 2021-04-01 18:02 | DRG 133 ==
LOC: ED 11:59 → MEDTELE 18:36
PROVIDERS: ADMIT Internal Medicine; ATTEND Internal Medicine

== ENCOUNTER 2021-04-18 09:28 | Inpatient (IN) ==
[2021-04-18] MEDS ORDERED: NS 0.9% 1000 ml BAG 1,000 ML IV ONE ×2 (09:39→09:42)
[2021-04-18 09:55] LABS: ABS Basophils 0.1 10^3/ul (0-0.2); ABS Lymphocytes 0.6 10^3/ul (1.0-4.8); ABS Monocytes 1.1 10^3/ul (0-0.8); ABS Neutrophils 14.3 10^3/ul (1.5-7.7); Eosinophil % 0.1 %; Hematocrit 34 % (42-52); Hemoglobin 10.1 g/dL (14.0-18.0); Lymphocyte % 3.9 %; Mean Corpuscular HGB Conc 30 g/dL (31-36); Mean Corpuscular Hemoglobin 23 pg (27-31); Mean Corpuscular Volume 78 fL (80-94); Mean Platelet Volume 7.4 fL (7.4-10.4); Nucleated Red Blood Cells % 0.2; Platelet Count 434 10^3/uL (150-450); Red Blood Count 4.32 10^6 /uL (4.18-5.48); Red Cell Distribution Width 22 % (10-15); White Blood Count 16.1 10^3/uL (3.5-10.8)
[2021-04-18 10:13] LABS: PO2 Arterial 66 mmHg (80-100)
[2021-04-18 10:13] LABS: Albumin 3.2 g/dL (3.2-5.2); Albumin/Globulin Ratio 0.6 (1-3); Calcium 8.8 mg/dL (8.6-10.3); EGFR African American 40.6 (>60); EGFR Non-African American 33.5 (>60); Globulin 5.7 g/dL (2-4); Potassium 4.7 mmol/L (3.5-5.0); Total Bilirubin 0.6 mg/dL (0.2-1.0); Total Protein 8.9 g/dL (6.4-8.9)
[2021-04-18 10:15] LABS: Troponin I 0.02 ng/mL (<0.03)
[2021-04-18] MEDS ORDERED: Furosemide 40 mg/4 ml IV VIAL IV ONE (10:20)
[2021-04-18 10:29] LABS: Anisocytosis 1+; Basophilic Stippling 1+; Polychromasia 1+
[2021-04-18 10:45] LABS: TSH Ultra Thyroid Stim Horm 3.27 mcIU/mL (0.34-5.60)
[2021-04-18 10:50] LABS: PCO2 Arterial 83 mmHg (35-45)
[2021-04-18] MEDS ORDERED: Dextrose 50% Syringe 50 ml 25 GM/50 ML SYRINGE IV PUSH PRN ×2 (11:01→18:09)
[2021-04-18] MEDS ORDERED: Albuterol HFA INHALER 8 gm MDI INH PRN ×2 (11:01→14:30)
[2021-04-18] MEDS ORDERED: Vancomycin 1,000 MG in NS 0.9% 250 ml 250 ML IVPB ONE (11:03)
[2021-04-18] MEDS ORDERED: Vancomycin per Pharmacy 1 EA NOTE FOLLOW UP SCH (12:00)
[2021-04-18] MEDS ORDERED: Linezolid 600 MG IVPREMIX(*) 600 MG/300 ML BAG IVPB SCH (12:00)
[2021-04-18] MEDS ORDERED: Vancomycin 2,000 MG in NS 0.9% 500 ml BAG 500 ML IVPB ONE (12:00)
[2021-04-18] MEDS: Enoxaparin 30 MG/0.3 ML SYR SUBCUT SCH (12:02)
[2021-04-18] MEDS ORDERED: Zosyn per Pharmacy NOTE FOLLOW UP PRN (13:25)
[2021-04-18] MEDS ORDERED: ZOSYN 3.375 GM x ONE DOSE over 30 miuntes IV (14:00)
[2021-04-18 17:43] LABS: Urine Appearance Cloudy; Urine Bilirubin Negative (Negative); Urine Blood 1+ (Negative); Urine Color Yellow; Urine Glucose Negative (Negative); Urine Ketones Negative (Negative); Urine Nitrite Negative (Negative); Urine Protein 3+(>=500 mg/dL) (Negative); Urine Specific Gravity 1.012 (1.002-1.030); Urine Urobilinogen Negative (Negative)
[2021-04-18 17:45] LABS: Urine Bacteria 1+ (Absent); Urine Red Blood Cell 3+(>10/hpf) (Absent); Urine Squamous Epithelial Cell Present (Absent); Urine White Blood Cell Trace(0-5/hpf) (Absent)
[2021-04-18] MEDS: Insulin GLARGINE 100 un/ml 10 ml VIAL SUBCUT SCH (20:59)
[2021-04-18] MEDS ORDERED: Furosemide 100 mg/10 ml IV VIAL IV ONE (21:12)
[2021-04-18] MEDS: ZOSYN 3.375 GM Q8H per EXTENDED INFUSION IV SCH (21:37)
[2021-04-19 04:13] LABS: ABS Basophils 0.1 10^3/ul (0-0.2); ABS Eosinophils 0.2 10^3/ul (0-0.6); ABS Lymphocytes 0.4 10^3/ul (1.0-4.8); ABS Monocytes 0.7 10^3/ul (0-0.8); Eosinophil % 2.3 %; Hematocrit 30 % (42-52); Hemoglobin 9.1 g/dL (14.0-18.0); Lymphocyte % 3.5 %; Mean Corpuscular HGB Conc 31 g/dL (31-36); Mean Corpuscular Hemoglobin 24 pg (27-31); Mean Corpuscular Volume 77 fL (80-94); Mean Platelet Volume 7.5 fL (7.4-10.4); Platelet Count 348 10^3/uL (150-450); Red Blood Count 3.84 10^6 /uL (4.18-5.48); Red Cell Distribution Width 22 % (10-15); White Blood Count 10.4 10^3/uL (3.5-10.8)
[2021-04-19] MEDS: ZOSYN 3.375 GM Q8H per EXTENDED INFUSION IV SCH ×3 (04:18→21:47)
[2021-04-19 04:30] LABS: Calcium 8.5 mg/dL (8.6-10.3); EGFR African American 40.6 (>60); EGFR Non-African American 33.5 (>60); Potassium 3.9 mmol/L (3.5-5.0)
[2021-04-19] MEDS ORDERED: Potassium Chlor 20 meq TAB.ER PO ONE (05:24)
[2021-04-19 08:15] LABS: Magnesium 1.9 mg/dL (1.9-2.7); Phosphorus 3.3 mg/dL (2.5-5.0)
[2021-04-19 08:36] LABS: PCO2 Arterial 65 mmHg (35-45); PO2 Arterial 62 mmHg (80-100)
[2021-04-19] MEDS ORDERED: Furosemide 100 mg/10 ml IV VIAL IV ONE (09:00)
[2021-04-19] MEDS: Polyethylene Glycol 3350 17 GM PACKET PO SCH (09:01)
[2021-04-19] MEDS ORDERED: Benzocaine/Menthol LOZ PO PRN (09:41)
[2021-04-19] MEDS: Enoxaparin 30 MG/0.3 ML SYR SUBCUT SCH (10:02)
[2021-04-19] MEDS ORDERED: Vancomycin 1000 MG in NS 0.9% 250 ML IVPB SCH (13:00)
[2021-04-19] MEDS: Vancomycin 1000 MG in NS 0.9% 250 ML IVPB SCH (17:47)
[2021-04-19] MEDS: Insulin GLARGINE 100 un/ml 10 ml VIAL SUBCUT SCH (21:47)
[2021-04-20] MEDS: ZOSYN 3.375 GM Q8H per EXTENDED INFUSION IV SCH ×3 (04:21→21:20)
[2021-04-20 04:36] LABS: ABS Basophils 0.1 10^3/ul (0-0.2); ABS Eosinophils 0.4 10^3/ul (0-0.6); ABS Lymphocytes 0.6 10^3/ul (1.0-4.8); ABS Monocytes 0.8 10^3/ul (0-0.8); Eosinophil % 5.2 %; Hematocrit 29 % (42-52); Hemoglobin 9.2 g/dL (14.0-18.0); Lymphocyte % 7.2 %; Mean Corpuscular HGB Conc 32 g/dL (31-36); Mean Corpuscular Hemoglobin 24 pg (27-31); Mean Corpuscular Volume 76 fL (80-94); Mean Platelet Volume 7.5 fL (7.4-10.4); Platelet Count 351 10^3/uL (150-450); Red Blood Count 3.84 10^6 /uL (4.18-5.48); Red Cell Distribution Width 23 % (10-15); White Blood Count 7.9 10^3/uL (3.5-10.8)
[2021-04-20 04:47] LABS: Calcium 8.6 mg/dL (8.6-10.3); EGFR African American 42.2 (>60); EGFR Non-African American 34.9 (>60); Magnesium 1.8 mg/dL (1.9-2.7)
[2021-04-20] MEDS ORDERED: Magnesium Sulfate IV 3 GM in NS 0.9% 100 ml BAG 100 ML IVPB ONE (05:36)
[2021-04-20 06:27] LABS: PCO2 Arterial 60 mmHg (35-45); PO2 Arterial 139 mmHg (80-100)
[2021-04-20] MEDS ORDERED: Furosemide 40 mg/4 ml IV VIAL IV SLOW PU ONE (09:00)
[2021-04-20] MEDS: Polyethylene Glycol 3350 17 GM PACKET PO SCH (09:32)
[2021-04-20] MEDS: Enoxaparin 30 MG/0.3 ML SYR SUBCUT SCH (10:12)
[2021-04-20] MEDS: Vancomycin 1000 MG in NS 0.9% 250 ML IVPB SCH (17:23)
[2021-04-20 20:46] LABS: Calcium 8.4 mg/dL (8.6-10.3); EGFR African American 47.1 (>60); EGFR Non-African American 38.9 (>60); Magnesium 2.1 mg/dL (1.9-2.7); Phosphorus 2.2 mg/dL (2.5-5.0)
[2021-04-20] MEDS: Insulin GLARGINE 100 un/ml 10 ml VIAL SUBCUT SCH (21:36)
[2021-04-21] MEDS: acetaZOLAMIDE IV 250 MG in NS 0.9% 50 ML 50 ML IVPB SCH ×2 (01:35→08:33)
[2021-04-21] MEDS: ZOSYN 3.375 GM Q8H per EXTENDED INFUSION IV SCH ×3 (05:17→22:15)
[2021-04-21 05:43] LABS: ABS Basophils 0.1 10^3/ul (0-0.2); ABS Eosinophils 0.5 10^3/ul (0-0.6); ABS Lymphocytes 0.7 10^3/ul (1.0-4.8); ABS Monocytes 0.9 10^3/ul (0-0.8); ABS Neutrophils 6.5 10^3/ul (1.5-7.7); Eosinophil % 6.2 %; Hematocrit 28 % (42-52); Hemoglobin 8.8 g/dL (14.0-18.0); Lymphocyte % 7.6 %; Mean Corpuscular HGB Conc 32 g/dL (31-36); Mean Corpuscular Hemoglobin 24 pg (27-31); Mean Corpuscular Volume 76 fL (80-94); Mean Platelet Volume 7.4 fL (7.4-10.4); Platelet Count 334 10^3/uL (150-450); Red Blood Count 3.68 10^6 /uL (4.18-5.48); Red Cell Distribution Width 22 % (10-15); White Blood Count 8.6 10^3/uL (3.5-10.8)
[2021-04-21 06:07] LABS: Calcium 8.5 mg/dL (8.6-10.3); EGFR African American 46.5 (>60); EGFR Non-African American 38.5 (>60); Magnesium 2.2 mg/dL (1.9-2.7); Phosphorus 2.5 mg/dL (2.5-5.0); Potassium 3.8 mmol/L (3.5-5.0)
[2021-04-21] MEDS ORDERED: Furosemide 40 mg/4 ml IV VIAL IV SLOW PU ONE (06:23)
[2021-04-21] MEDS ORDERED: Potassium Chlor 20 meq TAB.ER PO ONE (06:46)
[2021-04-21] MEDS: Polyethylene Glycol 3350 17 GM PACKET PO SCH (07:54)
[2021-04-21] MEDS: Enoxaparin 30 MG/0.3 ML SYR SUBCUT SCH (11:01)
[2021-04-21 12:08] LABS: PCO2 Arterial 58 mmHg (35-45)
[2021-04-21 12:29] LABS: PO2 Arterial 57 mmHg (80-100)
[2021-04-21] MEDS ORDERED: Perflutren Lipid Microsphere 3 ML VIAL ONE (14:14)
[2021-04-21] MEDS ORDERED: Furosemide 40 mg/4 ml IV VIAL IV ONE (16:00)
[2021-04-21] MEDS ORDERED: Vancomycin Trough Check NOTE FOLLOW UP ONE (16:30)
[2021-04-21] MEDS: Insulin GLARGINE 100 un/ml 10 ml VIAL SUBCUT SCH (22:15)
[2021-04-22] MEDS: ZOSYN 3.375 GM Q8H per EXTENDED INFUSION IV SCH ×2 (04:54→12:56)
[2021-04-22 06:14] LABS: ABS Basophils 0.1 10^3/ul (0-0.2); ABS Eosinophils 0.5 10^3/ul (0-0.6); ABS Lymphocytes 0.7 10^3/ul (1.0-4.8); ABS Neutrophils 7.4 10^3/ul (1.5-7.7); Eosinophil % 5.6 %; Hematocrit 29 % (42-52); Hemoglobin 9.4 g/dL (14.0-18.0); Lymphocyte % 7.2 %; Mean Corpuscular HGB Conc 32 g/dL (31-36); Mean Corpuscular Hemoglobin 24 pg (27-31); Mean Corpuscular Volume 75 fL (80-94); Mean Platelet Volume 7.4 fL (7.4-10.4); Platelet Count 338 10^3/uL (150-450); Red Cell Distribution Width 23 % (10-15); White Blood Count 9.7 10^3/uL (3.5-10.8)
[2021-04-22 06:35] LABS: Calcium 8.9 mg/dL (8.6-10.3); EGFR African American 45.1 (>60); EGFR Non-African American 37.3 (>60); Phosphorus 3.2 mg/dL (2.5-5.0); Potassium 3.9 mmol/L (3.5-5.0)
[2021-04-22] MEDS: Enoxaparin 40 MG/0.4 ML SYR SUBCUT SCH (09:26)
[2021-04-22] MEDS: Polyethylene Glycol 3350 17 GM PACKET PO SCH (09:27)
[2021-04-22] MEDS ORDERED: Furosemide 100 mg/10 ml IV VIAL IV SCH (15:00)
[2021-04-22] MEDS: Insulin GLARGINE 100 un/ml 10 ml VIAL SUBCUT SCH (22:28)
[2021-04-23] MEDS ORDERED: ZOSYN 3.375 GM Q8H per EXTENDED INFUSION IV SCH ×2 (02:00→10:00)
[2021-04-23] MEDS: ZOSYN 3.375 GM Q8H per EXTENDED INFUSION IV SCH (02:47)
[2021-04-23] MEDS ORDERED: Furosemide 40 mg/4 ml IV VIAL IV SLOW PU SCH (07:30)
[2021-04-23] MEDS: Enoxaparin 40 MG/0.4 ML SYR SUBCUT SCH (08:30)
[2021-04-23] MEDS: Polyethylene Glycol 3350 17 GM PACKET PO SCH (09:03)
[2021-04-23] MEDS ORDERED: Vancomycin per Pharmacy 1 EA NOTE FOLLOW UP PRN (09:09)
[2021-04-23 09:52] LABS: ABS Basophils 0.1 10^3/ul (0-0.2); ABS Eosinophils 0.7 10^3/ul (0-0.6); ABS Monocytes 1.1 10^3/ul (0-0.8); ABS Neutrophils 9.1 10^3/ul (1.5-7.7); Eosinophil % 5.6 %; Hematocrit 31 % (42-52); Hemoglobin 9.7 g/dL (14.0-18.0); Lymphocyte % 8.6 %; Mean Corpuscular HGB Conc 31 g/dL (31-36); Mean Corpuscular Hemoglobin 23 pg (27-31); Mean Corpuscular Volume 75 fL (80-94); Mean Platelet Volume 7.3 fL (7.4-10.4); Platelet Count 360 10^3/uL (150-450); Red Blood Count 4.14 10^6 /uL (4.18-5.48); Red Cell Distribution Width 22 % (10-15)
[2021-04-23] MEDS ORDERED: Vancomycin 2,000 MG in NS 0.9% 500 ml BAG 500 ML IVPB ONE (10:00)
[2021-04-23] MEDS ORDERED: Zosyn per Pharmacy NOTE FOLLOW UP SCH (10:00)
[2021-04-23 10:08] LABS: Calcium 9.2 mg/dL (8.6-10.3); EGFR African American 40.8 (>60); EGFR Non-African American 33.7 (>60); Magnesium 2.1 mg/dL (1.9-2.7); Phosphorus 4.3 mg/dL (2.5-5.0); Potassium 4.3 mmol/L (3.5-5.0)
[2021-04-23] MEDS: ZOSYN 3.375 GM IV SCH ×3 (10:15→23:50)
[2021-04-23] MEDS: Insulin GLARGINE 100 un/ml 10 ml VIAL SUBCUT SCH (21:43)
[2021-04-24] MEDS: ZOSYN 3.375 GM IV SCH ×5 (05:08→20:53)
[2021-04-24] MEDS ORDERED: Vancomycin Random Level NOTE FOLLOW UP ONE (06:00)
[2021-04-24 06:10] LABS: ABS Basophils 0.1 10^3/ul (0-0.2); ABS Eosinophils 0.7 10^3/ul (0-0.6); ABS Lymphocytes 1.5 10^3/ul (1.0-4.8); ABS Monocytes 1.1 10^3/ul (0-0.8); ABS Neutrophils 8.4 10^3/ul (1.5-7.7); Hematocrit 30 % (42-52); Hemoglobin 9.2 g/dL (14.0-18.0); Lymphocyte % 12.8 %; Mean Corpuscular HGB Conc 31 g/dL (31-36); Mean Corpuscular Hemoglobin 24 pg (27-31); Mean Corpuscular Volume 75 fL (80-94); Mean Platelet Volume 7.5 fL (7.4-10.4); Platelet Count 352 10^3/uL (150-450); Red Blood Count 3.91 10^6 /uL (4.18-5.48); Red Cell Distribution Width 22 % (10-15); White Blood Count 11.8 10^3/uL (3.5-10.8)
[2021-04-24 06:30] LABS: Calcium 8.6 mg/dL (8.6-10.3); EGFR African American 37.2 (>60); EGFR Non-African American 30.7 (>60)
[2021-04-24 06:32] LABS: Vancomycin Random 26.5 mcg/mL
[2021-04-24] MEDS: Enoxaparin 40 MG/0.4 ML SYR SUBCUT SCH (09:36)
[2021-04-24] MEDS: Polyethylene Glycol 3350 17 GM PACKET PO SCH (09:37)
[2021-04-24] MEDS: Insulin GLARGINE 100 un/ml 10 ml VIAL SUBCUT SCH (20:53)
[2021-04-25] MEDS: ZOSYN 3.375 GM IV SCH ×2 (04:02→09:42)
[2021-04-25] MEDS ORDERED: Vancomycin Random Level NOTE FOLLOW UP ONE (06:00)
[2021-04-25] MEDS: Polyethylene Glycol 3350 17 GM PACKET PO SCH (08:09)
[2021-04-25] MEDS: Enoxaparin 40 MG/0.4 ML SYR SUBCUT SCH (08:15)
[2021-04-25 10:12] LABS: Calcium 8.6 mg/dL (8.6-10.3); EGFR African American 29.3 (>60); EGFR Non-African American 24.2 (>60); Magnesium 2.3 mg/dL (1.9-2.7); Potassium 4.5 mmol/L (3.5-5.0)
[2021-04-25 10:46] LABS: Vancomycin Random 19.5 mcg/mL
[2021-04-25] MEDS ORDERED: Furosemide 40 mg/4 ml IV VIAL IV ONE (10:55)
[2021-04-25] MEDS: Insulin GLARGINE 100 un/ml 10 ml VIAL SUBCUT SCH (22:02)
[2021-04-26] MEDS ORDERED: Vancomycin Random Level NOTE FOLLOW UP ONE (06:00)
[2021-04-26 07:11] LABS: ABS Basophils 0.1 10^3/ul (0-0.2); ABS Eosinophils 0.9 10^3/ul (0-0.6); ABS Lymphocytes 1.3 10^3/ul (1.0-4.8); ABS Neutrophils 9.2 10^3/ul (1.5-7.7); Hematocrit 29 % (42-52); Hemoglobin 9.2 g/dL (14.0-18.0); Lymphocyte % 10.2 %; Mean Corpuscular HGB Conc 32 g/dL (31-36); Mean Corpuscular Hemoglobin 24 pg (27-31); Mean Corpuscular Volume 75 fL (80-94); Mean Platelet Volume 7.5 fL (7.4-10.4); Platelet Count 346 10^3/uL (150-450); Red Blood Count 3.89 10^6 /uL (4.18-5.48); Red Cell Distribution Width 22 % (10-15); White Blood Count 12.4 10^3/uL (3.5-10.8)
[2021-04-26 07:27] LABS: Calcium 8.4 mg/dL (8.6-10.3); EGFR African American 35.8 (>60); EGFR Non-African American 29.5 (>60); Magnesium 2.2 mg/dL (1.9-2.7); Phosphorus 4.5 mg/dL (2.5-5.0); Potassium 4.1 mmol/L (3.5-5.0)
[2021-04-26 07:40] LABS: PO2 Arterial 63 mmHg (80-100)
[2021-04-26 07:47] LABS: PCO2 Arterial 75 mmHg (35-45)
[2021-04-26 08:56] LABS: C Reactive Protein 29.78 mg/L (<8.01)
[2021-04-26] MEDS: Enoxaparin 40 MG/0.4 ML SYR SUBCUT SCH (09:35)
[2021-04-26] MEDS: Polyethylene Glycol 3350 17 GM PACKET PO SCH (09:35)
[2021-04-26 17:05] LABS: Calcium 8.6 mg/dL (8.6-10.3); EGFR African American 36.1 (>60); EGFR Non-African American 29.8 (>60); Potassium 4.1 mmol/L (3.5-5.0)
[2021-04-26] MEDS: Insulin GLARGINE 100 un/ml 10 ml VIAL SUBCUT SCH (21:34)
[2021-04-27 00:52] LABS: Urine Appearance Clear; Urine Bilirubin Negative (Negative); Urine Blood Negative (Negative); Urine Color Yellow; Urine Glucose Negative (Negative); Urine Ketones Negative (Negative); Urine Nitrite Negative (Negative); Urine Protein 2+(100 mg/dL) (Negative); Urine Specific Gravity 1.012 (1.002-1.030); Urine Urobilinogen Positive (Negative)
[2021-04-27 01:00] LABS: Urine Bacteria 1+ (Absent); Urine Red Blood Cell Trace(0-2/hpf) (Absent); Urine Sperm Present (Absent); Urine Squamous Epithelial Cell Present (Absent); Urine White Blood Cell Trace(0-5/hpf) (Absent)
[2021-04-27 05:40] LABS: Hematocrit 29 % (42-52); Hemoglobin 8.9 g/dL (14.0-18.0); Mean Corpuscular HGB Conc 31 g/dL (31-36); Mean Corpuscular Hemoglobin 24 pg (27-31); Mean Corpuscular Volume 77 fL (80-94); Mean Platelet Volume 7.5 fL (7.4-10.4); Platelet Count 344 10^3/uL (150-450); Red Blood Count 3.79 10^6 /uL (4.18-5.48); Red Cell Distribution Width 22 % (10-15); White Blood Count 13.1 10^3/uL (3.5-10.8)
[2021-04-27 05:59] LABS: Calcium 8.3 mg/dL (8.6-10.3); EGFR African American 38.7 (>60); Magnesium 2.3 mg/dL (1.9-2.7); Potassium 3.8 mmol/L (3.5-5.0)
[2021-04-27 07:18] LABS: C Reactive Protein 29.38 mg/L (<8.01)
[2021-04-27] MEDS: Polyethylene Glycol 3350 17 GM PACKET PO SCH (09:32)
[2021-04-27] MEDS: Enoxaparin 40 MG/0.4 ML SYR SUBCUT SCH (09:32)
[2021-04-27] MEDS: Insulin GLARGINE 100 un/ml 10 ml VIAL SUBCUT SCH (21:08)
[2021-04-28 07:01] LABS: ABS Basophils 0.1 10^3/ul (0-0.2); ABS Eosinophils 0.7 10^3/ul (0-0.6); ABS Lymphocytes 1.8 10^3/ul (1.0-4.8); ABS Monocytes 1.2 10^3/ul (0-0.8); ABS Neutrophils 9.5 10^3/ul (1.5-7.7); Eosinophil % 5.6 %; Hematocrit 30 % (42-52); Hemoglobin 9.4 g/dL (14.0-18.0); Lymphocyte % 13.5 %; Mean Corpuscular HGB Conc 31 g/dL (31-36); Mean Corpuscular Hemoglobin 23 pg (27-31); Mean Corpuscular Volume 75 fL (80-94); Mean Platelet Volume 7.8 fL (7.4-10.4); Nucleated Red Blood Cells % 0.1; Platelet Count 384 10^3/uL (150-450); Red Blood Count 4.03 10^6 /uL (4.18-5.48); Red Cell Distribution Width 22 % (10-15); White Blood Count 13.3 10^3/uL (3.5-10.8)
[2021-04-28 07:11] LABS: Calcium 8.7 mg/dL (8.6-10.3); EGFR African American 35.4 (>60); EGFR Non-African American 29.2 (>60); Potassium 3.7 mmol/L (3.5-5.0)
[2021-04-28] MEDS: Enoxaparin 40 MG/0.4 ML SYR SUBCUT SCH (08:49)
[2021-04-28] MEDS: Polyethylene Glycol 3350 17 GM PACKET PO SCH (08:51)
[2021-04-28] MEDS: Insulin GLARGINE 100 un/ml 10 ml VIAL SUBCUT SCH (22:38)
[2021-04-29] MEDS: Enoxaparin 40 MG/0.4 ML SYR SUBCUT SCH (08:44)
[2021-04-29 09:10] LABS: Calcium 9.1 mg/dL (8.6-10.3); EGFR African American 40.6 (>60); EGFR Non-African American 33.6 (>60); Potassium 3.8 mmol/L (3.5-5.0)
[2021-04-29] MEDS: Polyethylene Glycol 3350 17 GM PACKET PO SCH (09:21)
[2021-04-29] MEDS: Insulin GLARGINE 100 un/ml 10 ml VIAL SUBCUT SCH (20:15)
[2021-04-30] MEDS: Enoxaparin 40 MG/0.4 ML SYR SUBCUT SCH (09:53)
[2021-04-30] MEDS: Polyethylene Glycol 3350 17 GM PACKET PO SCH (10:08)
[2021-04-30 12:04] LABS: CO2 Carbon Dioxide 27 mmol/L (22-32); Calcium 8.9 mg/dL (8.6-10.3); Chloride 95 mmol/L (101-111); Sodium 132 mmol/L (135-145)
[2021-04-30 12:10] LABS: Blood Urea Nitrogen 58 mg/dL (6-24); EGFR African American 37.9 (>60); EGFR Non-African American 31.3 (>60); Glucose 210 mg/dL (70-100)
[2021-04-30 12:55] LABS: Anion Gap 10 mmol/L (2-11)
[2021-04-30] MEDS: Insulin GLARGINE 100 un/ml 10 ml VIAL SUBCUT SCH (20:46)
[2021-05-01 07:43] LABS: EGFR African American 40.4 (>60); EGFR Non-African American 33.4 (>60); Potassium 3.8 mmol/L (3.5-5.0)
[2021-05-01] MEDS: Enoxaparin 40 MG/0.4 ML SYR SUBCUT SCH (09:46)
[2021-05-01] MEDS: Polyethylene Glycol 3350 17 GM PACKET PO SCH (11:02)
[2021-05-01] MEDS: Insulin GLARGINE 100 un/ml 10 ml VIAL SUBCUT SCH (21:00)
[2021-05-02 07:01] LABS: Calcium 8.7 mg/dL (8.6-10.3); EGFR African American 38.3 (>60); EGFR Non-African American 31.6 (>60); Potassium 3.8 mmol/L (3.5-5.0)
[2021-05-02] MEDS: Polyethylene Glycol 3350 17 GM PACKET PO SCH (08:02)
[2021-05-02] MEDS: Enoxaparin 40 MG/0.4 ML SYR SUBCUT SCH (09:38)
[2021-05-02 11:55] VITALS: BP 136/67
== END 2021-05-02 13:50 | DRG 720 ==
LOC: ED 09:28 → SUATTDRO 14:30 → ICU 14:30 → MEDTELE 04-21 22:18
PROVIDERS: ADMIT Hospitalist; ATTEND Internal Medicine